=== PATIENT | female | born 1945 | race African-American/Black ===

== ENCOUNTER 2020-07-20 21:27 | Emergency (ER) | payer MEDICARE ==
[2020-07-20 22:03] LABS: Absolute Lymphocytes (CBC) 0.9 K/uL (0.7-4.9); Basophils % 0.9 % (0-1.3); Hematocrit 29.2 % (36.0-45.0); Lymphocytes % 10.3 % (15.3-44.8); MPV 7.7 fL (7.6-11.3); RBC Red Blood Cell Count 3.37 M/uL (3.86-4.86)
[2020-07-20 22:11] LABS: Protime INR 1.09
[2020-07-20 22:21] LABS: BUN Blood Urea Nitrogen 11 mg/dL (7-18); Bicarbonate 28 mmol/L (21-32); Glucose Level 86 mg/dL (74-106); NT PRO-BNP 322 pg/mL (<450); Potassium 3.1 mmol/L (3.5-5.1); Sodium Level 140 mmol/L (136-145); Troponin (Emerg Dept Use Only) 0.02 ng/mL (0.0-0.045)
[2020-07-20] MEDS ORDERED: MORPHINE 2 MG/ML SYR ONE (22:24)
[2020-07-20] MEDS ORDERED: ONDANSETRON 4 MG/2 ML VIAL ONE (22:24)
[2020-07-20] MEDS ORDERED: LABETALOL 20 MG/4ML SYRINGE IV ONE (23:50)
--- NOTE | 2020-07-21 | ER ---
Nurse's Notes [facility] Name: Krista Chakraborty Age: 74 yrs Sex: Female : 1945 Arrival Date: 07/20/2020 Time: 21:28 Bed 18 Private MD: Diagnosis: Dissection of thoracic aorta-Ascending Presentation: 07/20 21:39 Chief complaint: Patient states: Pt was sitting at the table playing dominos when had a vg1 sudden onset of Chest pain/pressure and began feeling nauseous. Pt states the pain does not radiate but stated was seeing spots. Pt also stated had a Port placed yesterday. Coronavirus screen: Client denies travel out of the [place] in the last 14 days. Ebola Screen: Patient negative for fever greater than or equal to 101.5 degrees Fahrenheit, and additional compatible Ebola Virus Disease symptoms. Initial Sepsis Screen: Does the patient meet any 2 criteria? No. Patient's initial sepsis screen is negative. Does the patient have a suspected source of infection? No. Patient's initial sepsis screen is negative. Risk Assessment: Do you want to hurt yourself or someone else? Patient reports no desire to harm self or others. Onset of symptoms was July 20, 2020. 21:39 Method Of Arrival: Wheelchair vg1 21:39 Acuity: MARGE 3 vg1 Triage Assessment: 21:42 General: Appears in no apparent distress. uncomfortable, Behavior is calm, cooperative. vg1 Pain: Complains of pain in chest. Cardiovascular: Patient's skin is warm and dry. Historical: - Allergies: 21:42 No Known Allergies; vg1 - PMHx: 21:42 Colon Cancer; Liver Cancer; Hypertension; vg1 - Immunization history:: Adult Immunizations up to date. - Social history:: Smoking status: Patient denies any tobacco usage or history of. - Family history:: not pertinent. - Hospitalizations: : No recent hospitalization is reported. Screenin:50 Abuse screen: Denies threats or abuse. Nutritional screening: No deficits noted. jb4 Tuberculosis screening: No symptoms or risk factors identified. Fall Risk None identified. Assessment: 21:50 General: Appears in no apparent distress. uncomfortable, Behavior is calm, cooperative, jb4 appropriate for age. Pain: Complains of pain in chest Pain does not radiate. Pain currently is 9 out of 10 on a pain scale. Quality of pain is described as pressure, Pain began 1 day ago. Neuro: Level of Consciousness is awake, alert, obeys commands, Oriented to person, place, time, situation. Cardiovascular: Patient's skin is warm and dry. Respiratory: Airway is patent Respiratory effort is even, unlabored, Respiratory pattern is regular, symmetrical. GI: No signs and/or symptoms were reported involving the gastrointestinal system. : No signs and/or symptoms were reported regarding the genitourinary system. EENT: No signs and/or symptoms were reported regarding the EENT system. Derm: Skin is intact, Skin is pink, warm \T\ dry. Musculoskeletal: Circulation, motion, and sensation intact. Range of motion: intact in all extremities. 22:45 Reassessment: Patient appears in no apparent distress at this time. Patient and/or jb4 family updated on plan of care and expected duration. Pain level reassessed. Patient is alert, oriented x 3, equal unlabored respirations, skin warm/dry/pink. 23:42 Reassessment: Patient appears in no apparent distress at this time. Patient and/or jb4 family updated on plan of care and expected duration. Pain level reassessed. Patient is alert, oriented x 3, equal unlabored respirations, skin warm/dry/pink. 07/21 00:30 Reassessment: Patient appears in no apparent distress at this time. Patient and/or jb4 family updated on plan of care and expected duration. Pain level reassessed. Patient is alert, oriented x 3, equal unlabored respirations, skin warm/dry/pink. 01:21 Reassessment: Patient appears in no apparent distress at this time. Patient and/or jb4 family updated on plan of care and expected duration. Pain level reassessed. Patient is alert, oriented x 3, equal unlabored respirations, skin warm/dry/pink. 02:15 Reassessment: Patient appears in no apparent distress at this time. Patient and/or jb4 family updated on plan of care and expected duration. Pain level reassessed. Patient is alert, oriented x 3, equal unlabored respirations, skin warm/dry/pink. Pt transferred to receiving facility via life flight. Vital Signs: 07/20 21:39 BP 117 / 99; Pulse 86; Resp 14; Temp 98.3; Pulse Ox 100% ; Weight 68.04 kg; Height 5 vg1 ft. 8 in. (172.72 cm); Pain 9/10; 22:50 BP 122 / 90; Pulse 73; Resp 19; Pulse Ox 100% on R/A; jb4 23:15 BP 150 / 95; Pulse 75; Resp 16; Pulse Ox 100% on R/A; jb4 07/21 00:15 BP 137 / 82; Pulse 77; Resp 16; Pulse Ox 100% on R/A; jb4 01:15 BP 129 / 82; Pulse 71; Resp 11; Pulse Ox 100% on R/A; jb4 02:15 BP 128 / 78; Pulse 74; Resp 16; Pulse Ox 100% on R/A; jb4 07/20 21:39 Body Mass Index 22.81 (68.04 kg, 172.72 cm) vg1 ED Course: 07/20 21:28 Patient arrived in ED. cf2 21:31 Huan Cole MD is Attending Physician. rn 21:42 Triage completed. vg1 21:42 Arm band placed on. vg1 21:50 Patient has correct armband on for positive identification. Bed in low position. Call [facility] light in reach. Side rails up X 1. plant puller on. Pulse ox on. NIBP on. 21:50 Initial lab(s) drawn, by me, sent to lab. EKG done, by ED staff, reviewed by Huan Cole MD. Inserted saline lock: 18 gauge in right forearm, using aseptic technique. Blood collected. Patient maintains SpO2 saturation greater than 95% on room air. 21:57 Armin Diez, RN is Primary Nurse. jb4 22:11 XRAY Chest (1 view) In Process Unspecified. EDMS 22:42 CT Chest For PE Angio In Process Unspecified. EDMS 23:29 Initiated transfer to [facility], spoke with Austin Hernandez. ar5 07/21 00:18 [facility] declined transfer due to no bed availability. ar5 00:[address] [facility], spoke with Chel Moore. ar5 00:[address] Villalobos. ar5 00:40 Per Chel Moore, we need to call back when the COVID results come back then she will ar5 give us acceptance. 01:34 Accpetance given by Chel Moore. Accepting Dr is Dr. Bryan Villalobos. Pt. going to [address] rm:25 Call report to Fax MOT, Rene, Covid to [phone]. 01:45 Called [facility] spoke with Teodora they will arrive in 15 minutes. ar5 Fax Facesheet and MOT to [phone]. 02:15 No provider procedures requiring assistance completed. Patient transferred, IV remains jb4 in place. Administered Medications: 07/20 22:03 Drug: Zofran (Ondansetron) 4 mg Route: IVP; Site: right forearm; jb4 22:30 Follow up: Response: No adverse reaction jb4 22:05 Drug: morphine 2 mg Route: IVP; Site: right forearm; jb4 22:30 Follow up: Response: No adverse reaction; Marked relief of symptoms jb4 23:29 Drug: Labetalol 5 mg Route: IVP; Infused Over: 2 mins; Site: right forearm; jb4 0616 00:00 Follow up: Response: No adverse reaction; Blood pressure is lowered jb4 00:21 Drug: Labetalol 2.5 mg Route: IVP; Site: right forearm; jb4 01:00 Follow up: Response: No adverse reaction; Blood pressure is lowered jb4 Outcome: 00:00 ER care complete, transfer ordered by . rn 02:15 Transferred by helicopter to [facility], Transfer form completed. jb4 X-rays sent w/ patient. 02:15 Condition: stable 02:15 Discharge instructions given to patient, family, Instructed on the need for transfer, Demonstrated understanding of instructions. 02:28 Patient left the ED. jb4 Signatures: Dispatcher [employer] EDMS Huan Cole MD MD rn Bryson, James RN RN jb4 Yessi Peguero ar5 Brandon Tuttle cf2 Margaret Coronado, RN RN vg1 Corrections: (The following items were deleted from the chart) 02:06 00:18 Initiated transfer to [facility], spoke with Austin Hernandez ar5 ar5 02:16 01:45 Called [facility] spoke with Teodora they will arrive in 15 ar5 minutes ar5
--- NOTE | 2020-07-21 | EDPHYS ---
Physician Documentation [facility] Name: Krista Chakraborty Age: 74 yrs Sex: Female : 1945 Arrival Date: 07/20/2020 Time: 21:28 Bed 18 Private MD: ED Physician Huan Cole HPI: 07/20 21:39 This 74 yrs old Black Female presents to ER via Unassigned with complaints of Chest rn Pain. 21:39 The patient or guardian reports chest pain that is located primarily in the substernal rn area. Onset: 45 minute(s) ago. The pain does not radiate. Associated signs and symptoms: Pertinent negatives: abdominal pain, cough, diaphoresis, dizziness, headache, lightheadedness, nausea, near syncope, palpitations, shortness of breath, syncope, vomiting. The chest pain is described as a heaviness, a pressure. Duration: The patient or guardian reports a single episode, that is still ongoing. Modifying factors: The symptoms are alleviated by nothing. Severity of pain: At its worst the pain was moderate in the emergency department the pain is unchanged. The patient has not experienced similar symptoms in the past. The patient has been recently seen by a physician:. Just had port placed yesterday for starting chemo for colon cancer, reports sitting at table and began to have substernal chest pain, pressure, non-radiating, no fever/cough/abd pain. + chronic edema of lower ext. No hx of DVT/PE. . Historical: - Allergies: 21:42 No Known Allergies; vg1 - PMHx: 21:42 Colon Cancer; Liver Cancer; Hypertension; vg1 - Immunization history:: Adult Immunizations up to date. - Social history:: Smoking status: Patient denies any tobacco usage or history of. - Family history:: not pertinent. - Hospitalizations: : No recent hospitalization is reported. ROS: 21:39 Constitutional: Negative for fever, chills Eyes: Negative for injury, pain, redness, rn and discharge, Neck: Negative for injury, pain, and swelling, Cardiovascular: + for chest pain and edema Respiratory: Negative for shortness of breath, cough, wheezing Abdomen/GI: Negative for abdominal pain, nausea, vomiting, diarrhea, and constipation, Back: Negative for injury and pain, MS/Extremity: Negative for injury and deformity, Skin: Negative for injury, rash, and discoloration, Neuro: Negative for headache, weakness, numbness, tingling, and seizure. Exam: 21:39 Constitutional: This is a well developed, well nourished patient who is awake, alert, rn holding center chest. Head/Face: Normocephalic, atraumatic. Eyes: Pupils equal round and reactive to light, extra-ocular motions intact. Cardiovascular: Regular rate and rhythm. No pulse deficits. Respiratory: No increased work of breathing, no retractions or nasal flaring. Abdomen/GI: soft, non-tender, + biliary drain/tube in place, draining Skin: Warm, dry MS/ Extremity: Pulses equal, no cyanosis. Neuro: Awake and alert, GCS 15, oriented to person, place, time, and situation. Vital Signs: 21:39 BP 117 / 99; Pulse 86; Resp 14; Temp 98.3; Pulse Ox 100% ; Weight 68.04 kg; Height 5 vg1 ft. 8 in. (172.72 cm); Pain 9/10; 22:50 BP 122 / 90; Pulse 73; Resp 19; Pulse Ox 100% on R/A; jb4 23:15 BP 150 / 95; Pulse 75; Resp 16; Pulse Ox 100% on R/A; jb4 07/21 00:15 BP 137 / 82; Pulse 77; Resp 16; Pulse Ox 100% on R/A; jb4 01:15 BP 129 / 82; Pulse 71; Resp 11; Pulse Ox 100% on R/A; jb4 02:15 BP 128 / 78; Pulse 74; Resp 16; Pulse Ox 100% on R/A; jb4 07/20 21:39 Body Mass Index 22.81 (68.04 kg, 172.72 cm) vg1 MDM: 07/20 21:31 Patient medically screened. rn 21:55 ED course: Daughter states + known blood clots in lungs. . rn 23:23 ED course: Radiology called, reports acute aortic dissection, ascending to end of rn aortic arch. BP slightly elevated 5mg labetalol ordered, will transfer patient for CVICU.. 23:24 ED course: Pain improved. rn 23:58 Differential diagnosis: acute myocardial infarction, acute pericarditis, coronary rn artery disease pulmonary embolus, stable angina, thoracic aortic disection, unstable angina. Data reviewed: vital signs, nurses notes, lab test result(s), EKG, radiologic studies, CT scan, plain films, and as a result, I will admit patient. Counseling: I had a detailed discussion with the patient and/or guardian regarding: the historical points, exam findings, and any diagnostic results supporting the discharge/admit diagnosis, lab results, radiology results, the need for further work-up and treatment in the hospital, the need to transfer to another facility, for higher level of care, [facility] does not immediately have the required specialist. Response to treatment: the patient's symptoms have mildly improved after treatment, and as a result, I will admit patient. 07/21 00:35 ED course: Pt declined by [facility], accepted by Dr. Villalobos at [facility]. [facility] transfer center states need to wait on COVID results before transfer. 07/20 21:39 Order name: Basic Metabolic Panel; Complete Time: 22:23 07/20 21:39 Order name: CBC with Diff rn 07/20 21:39 Order name: NT PRO-BNP; Complete Time: 22:23 07/20 21:39 Order name: PT-INR; Complete Time: 22:23 07/20 21:39 Order name: Troponin (emerg Dept Use Only); Complete Time: 22:23 07/20 21:39 Order name: XRAY Chest (1 view) rn 07/20 21:39 Order name: EKG; Complete Time: 21:40 07/20 21:39 Order name: CT Chest For PE Angio rn 07/21 01:31 Order name: SARS-COV-2 RT PCR EDCO 07/20 21:39 Order name: Cardiac monitoring; Complete Time: 21:57 rn 07/20 21:39 Order name: EKG - Nurse/Tech; Complete Time: 21:51 rn 07/20 21:39 Order name: IV Saline Lock; Complete Time: 21:57 rn 07/20 21:39 Order name: Labs collected and sent; Complete Time: 21:58 rn 07/20 21:39 Order name: O2 Per Protocol; Complete Time: 21:58 rn 07/20 21:39 Order name: O2 Sat Monitoring; Complete Time: 21:58 rn Administered Medications: 07/20 22:03 Drug: Zofran (Ondansetron) 4 mg Route: IVP; Site: right forearm; jb4 22:30 Follow up: Response: No adverse reaction jb4 22:05 Drug: morphine 2 mg Route: IVP; Site: right forearm; jb4 22:30 Follow up: Response: No adverse reaction; Marked relief of symptoms jb4 23:29 Drug: Labetalol 5 mg Route: IVP; Infused Over: 2 mins; Site: right forearm; jb4 07/21 00:00 Follow up: Response: No adverse reaction; Blood pressure is lowered jb4 00:21 Drug: Labetalol 2.5 mg Route: IVP; Site: right forearm; jb4 01:00 Follow up: Response: No adverse reaction; Blood pressure is lowered jb4 Disposition: 07/20 23:58 Critical Care:. rn Disposition: 07/21/20 00:00 Transfer ordered to [facility]. Diagnosis is Dissection of thoracic aorta - Ascending. - Reason for transfer: Higher level of care. - Accepting physician is Dr. Villalobos. - Condition is Fair. - Problem is new. - Symptoms have improved. Critical care time excluding procedures: 23:58 Critical care time: Bedside Care: 25 minutes, Family Intervention: 5 minutes. Total rn time: 30 minutes Signatures: Dispatcher [employer] EDMS Huan Cole MD MD rn Bryson, James RN TAMELA jb4 Margaret Coronado RN RN vg1 Corrections: (The following items were deleted from the chart) 07/21 00:36 00:24 CORONAVIRUS+MR.LAB.BRZ ordered. [facility] EDCO 00:37 00:00 07/21/2020 00:[address] [facility]. Diagnosis is rn Dissection of thoracic aorta - Ascending. Reason for transfer: Higher level of care. Accepting physician is . Condition is Fair. Problem is new. Symptoms have improved. rn 02:28 00:37 07/21/2020 00:00 Transfer ordered to [facility]. jb4 Diagnosis is Dissection of thoracic aorta - Ascending. Reason for transfer: Higher level of care. Accepting physician is Dr. Villalobos. Condition is Fair. Problem is new. Symptoms have improved. rn
[2020-07-21 02:36] VITALS: TEMP 98.3; O2SAT 100
[2020-07-21 02:45] VITALS: BP 128/78
--- NOTE | 2020-07-21 06:43 | RAD REPORT ---
EXAM DESCRIPTION: [facility]ash[place] Single View07/20/2020 9:56 pm CLINICAL HISTORY: Chest pain COMPARISON: none FINDINGS: The proximal thoracic aorta and aortic arch are prominent. CT scan on the same date demon strates a dissection. Lungs appear clear. Heart is mildly enlarged. Central venous catheter has its tip in the superior vena cava
--- NOTE | 2020-07-21 07:36 | EKG ---
Test Date: 2020-07-20 Test Time: 21:45:39 Behavioral Health Associate: MARY MEASUREMENT RESULTS: Intervals: Rate: 77 MD: 176 QRSD: 78 QT: 374 QTc: 423 [place]: P: 40 MD: 176 QRS: -29 T: 24 INTERPRETIVE STATEMENTS: Normal sinus rhythm Low voltage QRS Borderline ECG No previous ECG available for comparison Electronically Signed On 07-21-20 07:35:46 CDT by Gianni Caceres
--- NOTE | 2020-07-21 20:18 | RAD REPORT ---
EXAM DESCRIPTION: CT - Chest For Pe Angio - 07/21/2020 1:03 am CLINICAL HISTORY: Chest pain, recent port placement, colon cancer. COMPARISON: None. TECHNIQUE: CTA of the chest was performed following intravenous administration of iodinated contrast . Axial soft tissue and bone window, and coronal and sagittal soft tissue window reconstructions were created and sent to PACS. 3D postprocessing was performed on an independent workstation, with images sent to PACS for subsequen t review. This exam was performed according to our departmental dose-optimization program, which includes autom ated exposure control, adjustment of the mA and/or kV according to patient size and/or use of iterati ve reconstruction technique. FINDINGS: Vascular: There is an aortic dissection originating near the sinotubular junction extendin g to the distal aortic arch. The ascending aorta measures up to 5.4 cm in diameter, located in the pr oximal ascending aorta. There is a suspected fenestration at the level of the superior ascending thor acic aorta (axial image 45). The left common carotid and subclavian arteries arise from the true lume n. The right brachiocephalic artery is not well visualized, likely due to streak artifact from adjace nt contrast in the SVC and right brachiocephalic vein, but also is favored to arise from the true lum en (coronal image 38). The pulmonary arteries are well-opacified to the lobar level. No CT evidence of acute pulmonary throm boembolism. A tiny potential eccentric filling defect in the left lower lobe pulmonary artery and bra nches is either artifact or a chronic pulmonary embolus. Lungs and pleura: No pulmonary consolidation. Trace right-sided pleural effusion. No pneumothorax. Mediastinum and neck: No mediastinal lymphadenopathy by CT size criteria. Heterogeneous and enlarged thyroid gland, poorly visualized thyroid gland due to streak artifact. Cardiac: No cardiomegaly or pericardial effusion. Right IJ infusion port catheter terminates near the superior cavoatrial junction. Abdomen: Multifocal hepatic irregular calcifications, likely corresponding with treated metastases. S tents in the liver, possibly portal venous versus biliary. Trace portal venous gas versus pneumobilia , likely related to the stents. Tiny focus of gas in the left upper abdomen, medial to the spleen (ax ial series 601 image 107). Musculoskeletal: No concerning osseous abnormality. IMPRESSION: 1. Type A aortic dissection originating near the sinotubular junction extending to the distal aortic arch. The true lumen is well perfused. 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 2. No CT evidence of acute pulmonary thromboembolism. Tiny eccentric apparent filling defect in the left lower lobe pulmonary artery and branches is either artifact or a chronic pulmonary embolus. 3. No pulmonary consolidation. Trace right-sided pleural effusion. 4. Suspected treated hepatic metastases. Hepatic stents, likely in the portal venous system. Trace portal venous gas. 5. Tiny focus of gas in the left upper quadrant of uncertain etiology. Correlate for recent instrum entation. 6. Heterogeneous and enlarged thyroid gland. Consider correlation with thyroid ultrasound, if clini jamie appropriate (Reference: J Am Pa Radiol. 2015 Mar;12(2): 143-50). THIS REPORT CONTAINS FINDINGS THAT MAY BE CRITICAL TO PATIENT CARE: The findings were verbally discus sed via telephone conference with Dr. Huan Cole on 07/20/2020 11:19 PM CDT. The results were acknowl edged and understood. Electronically signed by: Erlinda Jaramillo MD 07/20/2020 11:27 PM CDT Due to temporary technical issues with the PACS/Fluency reporting system, reports are being signed by the in house radiologists without review as a courtesy to insure prompt reporting. The interpreting radiologist is fully responsible for the content of the report.
== END 2020-07-21 02:28 | disposition short-term general hospital (02) ==
LOC: ER 21:27
DX: I71.01 Dissection of thoracic aorta (principal); I10 Essential (primary) hypertension; Z20.822 Contact with and (suspected) exposure to COVID-19; Z85.05 Personal history of malignant neoplasm of liver; Z85.038 Personal history of other malignant neoplasm of large intestine
CPT/HCPCS: 93005; 85025; 80048; 36415; 85610; 84484; 83880; 71275; 71045; 96375; 96374; 99285; U0003; Q9967; J2270; J2405

== ENCOUNTER 2020-09-22 11:26 | Inpatient (IN) | payer MEDICARE ==
--- OUTSIDE RECORDS SUMMARY | 2020-09-22 11:34 | XMS REPORT | Clinical Summary ---
:1945 Author Organization [facility] MD [facility] Address [address] [place] [address] Care Team Providers Name Role Phone Trina Stevens MD Unavailable Kervin Diaz MD Unavailable Douglas MCKINNEY MD, [facility] Primary Care Provider [phone] Babak Riddle MDiv Unavailable Unavailable Allergies No Known Active Allergies Medications Medication Sig Dispensed Refills Start Date End Date Status amLODIPine (NORVASC) 5 Take 1 tablet (5 30 tablet 0 05/15/2020 Active mg tabletIndications: mg) by mouth Anemia in malignant daily. neoplastic disease furosemide (Lasix) 20 mg Take 1 tablet 30 tablet 3 06/02/2020 Active tabletIndications: (20 mg) by mouth Secondary malignant daily as needed neoplasm of liver, for edema. Adenocarcinoma of transverse colon ondansetron (Zofran) 8 Take 1 tablet (8 30 tablet 5 06/08/2020 Active mg tabletIndications: mg) by mouth Adenocarcinoma of every 8 (eight) transverse colon hours as needed for nausea or vomiting. (First Choice) Additional Information Patient not taking. Reason: Per patient request, Reported on 07/16/2020 prochlorperazine (Compazine) 10 Take 1 tablet (10 mg) 60 tablet 5 06/08/2020 Active mg tabletIndications: by mouth every 6 (six) Adenocarcinoma of transverse hours as needed for colon nausea or vomiting. (Second Choice) Additional Information Patient not taking. Reason: Per patient request, Reported on 07/16/2020 traMADol (ULTRAM) 50 mg Take 1 tablet (50 5 tablet 0 07/17/19 21 Active tabletIndications: mg) by mouth Postoperative pain every 6 (six) hours as needed for moderate pain. lidocaine-prilocaine Apply to 30 g 0 07/16/2020 Active (EMLA) 2.5-2.5% Port-A-Cath area creamIndications: 30 to 45 minutes Encounter for prior to port adjustment and access as management of vascular directed (topical access device anesthetic use to the anterior chest only). ferrous sulfate 325 mg Take 325 mg by 0 Active (65 mg elemental iron mouth. per tablet) tablet tvcthqak-xwqbvzz-lekm Apply 0.5 g 0 09/02/2020 Active oxide (REMEDY CALAZIME topically to PROTECT) affected area(s) 3.5%-0.2%-16.5% pste twice daily. topical pasteIndications: Adenocarcinoma of rectum, Carcinoma of colon, stage IV, Obstruction of biliary tree, Adenocarcinoma of transverse colon, Hematochezia, Cachexia, Disorder of fluid AND/OR electrolyte, Anemia in malignant neoplastic disease, Takotsubo cardiomyopathy, H/O: Deep vein thrombosis, History of repair of aneurysm of abdominal aorta using endovascular stent graft, Paroxysmal atrial fibrillation, Infection caused by Klebsiella, Lower gastrointestinal hemorrhage, Hypocalcemia, Hyperbilirubinemia, Inferior vena cava filter in situ, Moderate protein-calorie malnutrition, Secondary malignant neoplasm of liver, Abnormal liver function, Hypokalemia, Weakness, Nausea and vomiting, Rectal cancer, 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 rectum, Carcinoma of colon, stage IV, Obstruction of biliary tree, Adenocarcinoma of transverse colon, Hematochezia, Cachexia, Disorder of fluid AND/OR electrolyte, Anemia in malignant neoplastic disease, Takotsubo cardiomyopathy, H/O: Deep vein thrombosis, History of repair of aneurysm of abdominal aorta using endovascular stent graft, Paroxysmal atrial fibrillation, Infection caused by Klebsiella, Lower gastrointestinal hemorrhage, Hypocalcemia, Hyperbilirubinemia, Inferior vena cava filter in situ, Moderate protein-calorie malnutrition, Secondary malignant neoplasm of liver, Abnormal liver function, Hypokalemia, Weakness, Nausea and vomiting, Rectal cancer, 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 (St op Taking at Discharge) pantoprazole (PROTONIX) Take 40 mg by 0 /24 Discontinued 40 mg EC tablet mouth daily as (Reorder) needed. ferrous sulfate 325 mg Take 1 tablet 15 tablet 0 05/17/2020 (65 mg elemental iron (325 mg) by mouth per tablet) 3 (three) times a tabletIndications: week Sunday, Anemia in malignant Sunday and neoplastic disease Sunday for 30 days. levoFLOXacin (LEVAQUIN) Take 1 tablet 2 tablet 0 05/14/2020 0 05/16 500 mg (500 mg) by mouth tabletIndications: daily for 2 Anemia in malignant doses. neoplastic disease senna (SENOKOT) 8.6 mg Take 2 tablets by 30 tablet 0 1 06/13 tabletIndications: mouth daily Anemia in malignant needed for neoplastic disease constipation for up to 30 days. Additional Information Patient not taking. Reason: Other, Reported on 06/02/2020 dronabinol (MARINOL) Take 1 capsule 60 2 05/21/2020 Discontinued 2.5 mg (2.5 mg) by capsule (Stop Ta micaela capsuleIndications: mouth twice at Discharge) Adenocarcinoma of daily. transverse colon clarithromycin 0 03/10/2020 05/24/2020 Dis continued (BIAXIN) 500 mg tablet (Error) cholestyramine DISSOLVE & TAKE 0 04/07/2020 05/25/19 21 Discontinued (QUESTRAN) 4 g packet 1 POWDER PACKET BY MOUTH ONCE DAILY amoxicillin (AMOXIL) 0 03/10/2020 05/25/19 21 Discontinued 500 mg capsule (Erro r) mirtazapine (REMERON) Take 1 tablet 30 tablet 0 05/29/202005/2020 Discontinued 15 mg (15 mg) by mouth (Th erapy tabletIndications: at bedtime. completed) Other insomnia pantoprazole Take 1 tablet 30 tablet 0 05/29/2020 06/15/2020 D iscontinued (PROTONIX) 40 mg EC (40 mg) by mouth tabletIndications: daily with Obstruction of biliary breakfast. tree levoFLOXacin Take 1 tablet 3 tablet 0 05/30/2020 06/02/2020 D iscontinued (LEVAQUIN) 750 mg (750 mg) by (Therapy tabletIndications: mouth daily for completed) Obstruction of biliary 3 days. tree metroNIDAZOLE (FlagyL) Take 1 tablet 9 tablet 0 05/30/2020 Discontinued 500 mg (500 mg) by (Therapy tabletIndications: mouth 3 (three) completed) Obstruction of biliary times a day for tree 3 days. clindamycin (CLEOCIN Apply topically 60 mL 5 07/06/2020 Discontinued T) 1% to affected (Stop Ta micaela lotionIndications: area(s) 2 (two) at Discharge) Secondary malignant times a day as neoplasm of liver, needed (rash). Adenocarcinoma of transverse colon loperamide 2 tabs by mouth 100 5 07/06/2020 09/02/2020 D iscontinued (Anti-DiarrheaL, at 1st loose capsule (Stop Taking loperamide,) 2 mg stool, then 1 at Discharge) capsuleIndications: tab every 2hrs Secondary malignant until diarrhea neoplasm of liver, free for 12hrs. Adenocarcinoma of June take 2 tabs transverse colon every 4hrs at night. doxycycline Take 1 tablet 60 tablet 5 07/06/2020 09/02/2020 Di scontinued (VIBRAMYCIN) 100 mg (100 mg) by (Stop Taking tabletIndications: mouth twice at Discharge) Secondary malignant daily. neoplasm of liver, Adenocarcinoma of transverse colon sodium chloride (NS) Flush port with 10 1 07/02/2020 Discontinued 0.9% flush syringe 10 1 syringe (10 Syringe (Stop Taking mLIndications: Rectal ml) following at Discharge) cancer, Secondary 5-FU pump malignant neoplasm of disconnect liver apixaban (Eliquis) 5 Take 1 tablet (5 180 0 07/16/2020 0 09/02/2020 Discontinued mg tabletIndications: mg) by mouth tablet (Stop Taking Rectal cancer, Acute every 12 at Discharge) embolism and (twelve) hours thrombosis of for 90 days. unspecified deep veins of unspecified proximal lower extremity, Anemia due to blood loss, Acute embolism and thrombosis of unspecified deep veins of left proximal lower extremity, not otherwise specified ampicillin (OMNIPEN) Infuse 12,000 mg 0 09/02/2020 0 09/03/2020 IV prescription (HOME (12 g) USE)Indications: intravenously Adenocarcinoma of infuse over 24 rectum, Carcinoma of hours for 1 colon, stage IV, dose. Give Obstruction of biliary ampicillin 12g tree, Adenocarcinoma IV over pump of transverse colon, over 24 hours, Hematochezia, then stop Cachexia, Disorder of fluid AND/OR electrolyte, Anemia in malignant neoplastic disease, Takotsubo cardiomyopathy, H/O: Deep vein thrombosis, History of repair of aneurysm of abdominal aorta using endovascular stent graft, Paroxysmal atrial fibrillation, Infection caused by Klebsiella, Lower gastrointestinal hemorrhage, Hypocalcemia, Hyperbilirubinemia, Inferior vena cava filter in situ, Moderate protein-calorie malnutrition, Secondary malignant neoplasm of liver, Abnormal liver function, Hypokalemia, Weakness, Nausea and vomiting, Rectal cancer, 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 Managed at [facility] Anemia in malignant neoplastic disease 08/14/2020 Disorder of fluid AND/OR electrolyte 08/14/2020 Pulmonary embolism 08/14/2020 Coronary arteriosclerosis 08/14/2020 Cachexia 08/14/2020 Lower gastrointestinal hemorrhage 08/11/2020 Paroxysmal atrial fibrillation 08/11/2020 Dissection of aorta 08/11/2020 Overview: Complicated course with acute AAA, s/p e ndovascular graft, with takatsubo CMP, hemothorax s/p chest tube, required intra-aortic balloon pump. Managed at [facility] History of repair of aneurysm of abdominal aorta using endovascular stent 08/11/2020 graft Overview: Complicated course with acute AAA, s/p e ndovascular graft, with takatsubo CMP, hemothorax s/p chest tube, required intra-aortic balloon pump. Managed at [facility] Anticoagulant adverse reaction 08/11/2020 Hypocalcemia 07/16/2020 Inferior vena cava filter in situ 06/02/2020 Last Assessment & Plan: Placed 05/11/2020 when she presented with new diagnosis untreated bleeding rectal cancer and new DVT. Will defer retrieval of IVC filter until it is clear she can tolerate anticoagulation. We will likely place referral at next follow-up. Moderate protein-calorie malnutrition 05/24/2020 Malignant neoplasm of transverse colon 05/13/2020 Cancer Staging: Clinical: Stage LISETTE (cTX , cNX, cM1a) - Signed by Dean Cole II, MD on 05/21/2020 Secondary malignant neoplasm of liver 05/12/2020 Obstruction of biliary tree 05/12/2020 Acute iliac DVT 05/11/2020 Last Assessment & Plan: Right internal iliac nonoccluding vein d eep vein thrombosis seen on 05/10/2020 CT abdomen pelvis obtained for staging. Left distal popliteal vein partially occlusive thrombus diagnosed 05/11/2020 by venous Doppler. She could not be started on a nticoagulation due to anemia with ongoing rectal bleeding. She remains without bleeding. We will s tart Eliquis 5 mg p.o. twice daily. 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 Rectal cancer 05/10/2020 Cancer Staging: Clinical: Stage Unknown (cTX, cNX, cM1) - Signed by Dean Cole II, MD on 05/13/2020 Nausea and vomiting 05/10/2020 Weakness 05/10/2020 Hypokalemia 05/10/2020 Abnormal liver function 05/10/2020 Hyperbilirubinemia Resolved Problems Problem Noted Date Resolved Date Infection caused by Klebsiella 08/11/2020 1 Tight chest 05/11/2020 05/12/2020 Encounters Date Type Specialty Care Team Description 09/22/19 Case Management Deepthi Mccrary, RN 09/17/19 Case Management Deepthi Mccrary, RN 09/16/19 Office Visit Colorectal Medicine Dean Cole Secondar y malignant neoplasm of liver (Primary Dx); Deepthi Steel II, Anemia due to b lood loss; Adenocarcinoma of transverse colon 09/16/19 Travel 21 09/11/19 Telephone Colorectal Medicine Sienna Mckoy, RN 09/07/[address] Medicine [address], Adenocar cinoma of 21 Mayra Chelsea, transverse col on (Primary PA Dx) 08/26/19 Orders Only Colorectal Medicine Dean Cole II, MD 08/26/19 Orders Only Gastrointestinal [facility] 21 Medical Oncology [facility] 08/25/19 Orders Only Colorectal Medicine Deepthi Romero MD 08/25/19 Orders Only Gastrointestinal Krysten Cortés, 21 Medical Oncology [facility] 08/20/[address] Orders [address] Medicine [address], Adenocar cinoma of 21 Mayra Tran, transverse col on (Primary PA Dx) 08/18/19 Anesthesia Event Radiology Deepthi Shrestha III, MD Opusunju, Sylvia, IT ACCOUNT MANAGER 08/18/19 Travel 21 08/12/19 [facility] GI/Phase 1 Javed Dennison, Adenocarcinoma of rectum (Primary Dx); 21 - Encounter DO Carcinoma of colon, stage IV; 09/03/19 Drew, Obstruction of biliary tree; 21 MD Jen Adenocarcinoma of transverse colon; Kelsey, Hematochezia; Melanie, Cachexia; Disorder of fluid AND/OR electrolyte; Percy, Anemia in malig nant neoplastic disease; MD Latricia Takotsubo cardiomyopathy; [place] H/O: Deep vein thrombosis; Huy ohara, History of repa ir of aneurysm of abdominal aorta using endovascular stent graft; Paroxysmal atrial fibrillation; Darrian, Infection cause d by Klebsiella; Parth, DO Lower gastroint estinal hemorrhage; Hypocalcemia; Hyperbilirubine topher; Inferior vena c catie filter in situ; Moderate protei n-calorie malnutrition; Secondary malig nant neoplasm of liver; Abnormal liver function; Hypokalemia; Weakness; Nausea and vomi ting; Rectal cancer; Chronic iron de ficiency anemia secondary to blood loss 08/12/19 Orders Only Colorectal Medicine Dean Cole II, MD 08/12/19 Travel 21 08/12/19 Documentation Colorectal Medicine Dean Cole II, MD 08/12/19 Telephone Colorectal Medicine Mallory Brizuela V 21 RN 07/22/19 Documentation Colorectal Medicine Deepthi Sherman PA 07/22/19 Orders Only Gastrointestinal [facility] 21 Medical Oncology [facility] 07/21/19 [facility] Radiology Dean Cole Acute embolism and thrombosis of right iliac vein (Primary Dx); 21 Encounter Damián MCKINNEY, Malignant neopl asm of transverse colon, not otherwise specified; Inferior vena cava filter in situ Frances Colvin PA 07/21/19 Orders Only Radiology Deepthi Colvin PA 07/20/19 Ancillary Radiology 21 Procedure 07/20/19 Ancillary Radiology 21 Procedure 07/20/19 Anesthesia Event Ambulatory Surgery Daina Rivas 21 B., Claudia Bermudez, PSYCHOLOGICAL SCIENCE PROFESSOR 07/20/19 Ancillary Pisimisis, 21 Procedure MD Drew 07/20/19 Surgery Ambulatory Surgery Pisimisis, PORT-A-CA TH PLACEMENT 21 MD Derw 07/20/19 [facility] Ambulatory Surgery Pisimisis, Adenocarc inoma of transverse colon; 21 Encounter MD Drew Rectal cancer 07/20/19 Travel 21 07/17/19 Anesthesia Event Anesthesiology Eduar, DANIE Green 07/17/19 Clinical Support Infectious Diseases Melody Long, Maria Elena pected COVID-19 (Primary Dx); 21 PA Adenocarcinoma of transverse colon; Gary, Rectal cancer Farhat Omer MA 07/17/19 Hospital Lab Melody Long, Pre op labs; 21 Encounter PA Rectal cancer; Acute embolism and thrombosis of unspecified deep veins of unspecified proximal lower extremity; Anemia due to b lood loss; Acute embolism and thrombosis of unspecified deep veins of left proximal lower extremity, not otherwise specified; Secondary malig nant neoplasm of liver 07/17/19 [address] Adenocar cinoma of transverse colon (Primary Dx); 21 Encounter Procedures Mayra Tran, Rectal cancer; PA Secondary malignant neoplasm of liver; Williamson, Encounter for a djustment and management of vascular access device; Kengreer S, Moderate protei n-calorie malnutrition; RN Inferior vena cava filter in situ; Zhou, Postoperative p DANIE Webber 07/17/19 Office Visit Hematology Alayna, Inferior vena c catie filter in situ (Primary Dx); 21 Marcia Hurst MD Rectal cancer; Acute embolism and thrombosis of unspecified deep veins of unspecified proximal lower extremity; Anemia due to b lood loss; Acute embolism and thrombosis of unspecified deep veins of left proximal lower extremity, not otherwise specified; Chronic iron de ficiency anemia secondary to blood loss 07/17/19 POEM Appointments Anesthesiology Melody Long, Pre-sonia cassidy evaluation 21 PA 07/17/[address] Medicine [address], Secondar y malignant 21 Mayra Tran, neoplasm of li irvin (Primary PA Dx) 07/17/19 Travel 21 07/15/19 [facility], 21 Encounter MD Douglas Serrano Van Karlyle II, MD 07/10/[address] Rectal c ancer; 21 Encounter Procedures Mayra Tran, Encounter for adjustment and management of vascular access device PA Lolis Yeung, RN 07/10/19 Infusion Infusion Services Dean Cole Secondary malignant neoplasm of liver; 21 Damián MCKINNEY, Adenocarcinoma of transverse colon Lisandro Pena, RN 07/10/19 Telephone Gastrointestinal Dean Cole 21 Medical Oncology Damián MCKINNEY MD 07/10/19 Travel 21 07/10/19 Telephone Gastrointestinal Deepthi Mccrary Medical Oncology Misty Goyal RN 07/09/19 Prep for Surgery Vascular Access and Melody Long Ade nocarcinoma of transverse colon (Primary Dx); 21 Procedures PA Rectal cancer 07/09/19 Prep for Surgery Vascular Access and Melody Long Ade nocarcinoma of transverse colon (Primary Dx); 21 Procedures PA Rectal cancer 07/09/19 Orders Only Vascular Access and Melody Long, Pre op labs (Primary Dx); 21 Procedures PA Pre-surgery yossi luation 07/09/19 Telephone Vascular Access and Viji Murray, port co nsult 21 rv service technician 07/09/[address], Rectal c ancer (Primary Dx); 21 Mayra Tran, Secondary hue gnant neoplasm of liver; PA Adenocarcinoma of transverse colon 07/09/19 Orders Only Gastrointestinal Diao, Sugar, Chronic iro n deficiency anemia secondary to blood loss (Primary Dx); 21 Medical Oncology [facility] Rectal canc er 07/08/19 Infusion Infusion Services Dean Cole Adenocarci noma of transverse colon (Primary Dx); 21 Damián MCKINNEY, Secondary malig nant neoplasm of liver; Chronic iron de ficiency anemia secondary to blood loss 07/08/19 Documentation Lul Riddle MDiv 07/08/19 Travel 21 07/08/19 Orders Only Colorectal Medicine Dean Cole 21 Damián MCKINNEY MD 07/07/[address], Chronic iro n deficiency 21 Medical Oncology Mayrageorge Tran, anemia sec ondary to blood PA loss (Primary D x) 07/07/[address], Adenocarcin phil of transverse colon (Primary Dx); 21 Medical Oncology Mayra Tran, Encounter for chemotherapy PA 07/07/[address], Antineoplas tic chemotherapy 21 Medical Oncology Mayra Tran, induced an emia (Primary Dx) PA 07/03/19 [facility] Vascular Access and Dean Cole 21 Encounter Procedures MD Edgar Steel II, Sandeep, TAMELA 07/03/19 Hospital Radiology Dean Cole 21 Encounter Damián MCKINNEY MD 07/03/19 Office Visit Colorectal Medicine Dean Cole Rectal c ancer (Primary Dx); 21 Damián MCKINNEY, Secondary malig nant neoplasm of liver; Adenocarcinoma of transverse colon 07/03/[address], Rectal cancer; 21 Encounter Mayra Tran, Secondary hue gnant neoplasm of liver PA 07/03/19 Telephone Gastrointestinal Hermann, 21 Medical Oncology Misty Goyal RN 07/03/19 Travel 21 07/02/19 Telephone Gastrointestinal Juanito, 21 Surgery Nelson Hilliard NP 07/01/[address], 21 Medical Oncology Mayra Tran, PA 07/01/[address], Rectal canc er (Primary Dx); 21 Medical Oncology Mayra Tran, Secondary malignant neoplasm of liver PA 07/01/19 Telephone Gastrointestinal Huy, May 26 Medical Oncology Kevin RN 06/30/19 Telephone Gastrointestinal Hermann, 21 Medical Oncology Misty Goyal RN 06/26/19 Telephone Gastrointestinal Huy, May 26 Medical Oncology Kevin RN 06/17/19 Telephone Colorectal Medicine Sienna Mckoy 21 Monserrat, RN 06/16/19 Telephone Gastrointestinal Dean Cole Medical Oncology Damián MCKINNEY MD 06/16/19 Telephone Sienna Figueroa 21 Medical Oncology TAMELA German 06/16/[address], 21 Medical Oncology DANIE Mccann 06/16/[address], 21 Medical Oncology Mayra Tran, PA 06/12/19 Infusion Infusion Services Dean Cole Adenocarci noma of transverse colon; 21 Damián MCKINNEY, Secondary malig nant neoplasm of liver Julia Schultz, RN 06/12/19 Travel 21 06/11/19 Orders Only Gastrointestinal [facility] Rectal canc er (Primary Dx) 21 Medical Oncology [facility] 06/10/19 Infusion Infusion Services Dean Cole Adenocarci noma of 21 Karheber II, transverse colo n (Primary MD Dx) Charan Last RN 06/10/19 Office Visit Colorectal Medicine Dean Colear y malignant neoplasm of liver (Primary Dx); 21 Karheber II, Adenocarcinoma of transverse colon 06/10/[address], Secondary malig nant neoplasm of liver; 21 Encounter Mayra Tran, Adenocarcinoma of transverse colon PA 06/10/19 Hospital Radiology Dean Cole 21 Encounter Damián MCKINNEY MD 06/10/19 [facility] Vascular Access and Dean Cole Adenocar cinoma of transverse colon; 21 Encounter Procedures Damián MCKINNEY, Encounter for a djustment and management of vascular access device MD Marie, Dago Blanchard RN Johnnie, Monica Coyne RN 06/10/19 Travel 21 06/10/19 Orders Only Gastrointestinal [facility] 21 Medical Oncology [facility] 06/09/19 [facility], 21 Encounter Tyler Delaney MD 06/09/[address], 21 Medical Oncology DANIE Mccann 06/05/19 Orders Only Gastrointestinal [facility] 21 Medical Oncology [facility] 06/03/19 Office Visit Colorectal Medicine Dean Cole Adenocar cinoma of transverse colon (Primary Dx); 21 Damián MCKINNEY, Secondary malig blairt neoplasm of liver 06/03/19 Office Visit Hematology Alayna, Rectal cancer ( Primary Dx); 21 Marcia Hurst MD Acute embolism and thrombosis of unspecified deep veins of unspecified proximal lower extremity; Anemia due to b lood loss; Acute embolism and thrombosis of unspecified deep veins of left proximal lower extremity, not otherwise specified 06/03/19 Office Visit Gastrointestinal Juanito, Secondary m alignant 21 Surgery Nelson Hilliard, neoplasm of tj er EDGING CATCHER Joan Robbins MD 06/03/19 Hospital Lab Juanito, Secondary malig nant 21 Encounter Nelson Hilliard, neoplasm of tj er EDGING CATCHER 06/03/19 Orders Only Colorectal Medicine Dean Cole Secondar y malignant 21 Karheber II, neoplasm of tj er (Primary MD Dx) 06/03/19 Travel 21 06/02/19 Consult Colorectal Surgery Maverick, Adenocarc inoma of 21 MD Beba transverse colo n PhD 06/02/19 Anesthesia Event Radiology Palmer Siddiqui, 21 Loy Hamilton, RN 06/02/19 [facility] Radiology Jose Alejandro Garcia, Obstructive hyp erbilirubinemia; 21 Encounter MD Viki 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 Dat Yin, Plamer [place] MD Murthy, Ravi, MD 06/02/19 Travel 06/01/19 Anesthesia Event Anesthesiology Bal, 21 Viki German, TAMELA 06/01/19 POEM Appointments Anesthesiology Dean Coel No Show 21 Damián MCKINNEY MD 06/01/[address], 21 Medical Oncology DANIE Mccann 06/01/19 Telephone Gastrointestinal Juanito, 21 Surgery Nelson K, EDGING CATCHER 05/31/19 Orders Only Colorectal Medicine Dean Cole malignant neoplasm of liver (Primary Dx); 21 Damián MCKINNEY, Adenocarcinoma of transverse colon 05/27/19 Anesthesia Event Radiology Alirio Lobo, 21 Jose Luis Ng, RN 05/27/19 Surgery Endoscopy Rodger, ENDOSCOPIC RETR OGRADE 21 MD Phil CHOLANGIOPANCRE ATOGRAPHY WITH PLACEMENT OF STENT OF BILE DUCT 05/27/19 Orders Only Colorectal Surgery Beatriz Guerrero, 21 PA 05/27/19 Documentation Gastrointestinal Ethan Field, 21 Surgery Kayla Omer MA 05/26/19 Orders Only Colorectal Surgery Neelima Gregg, 21 EDGING CATCHER 05/26/19 Travel 21 05/25/19 [facility] Leukemia Kirk Lundberg, Anemia due to blood loss (Primary Dx); 21 - Encounter Rectal cancer; 05/30/19 Koom-Dadzie, Fatigue; 21 MD Ricardo Obstructive hyperbilirubinemia; Jose Alejandro Garcia, 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; MD Viki Other insomnia; Obstruction of biliary tree 05/25/19 Consult Gastrointestinal Rosendo Joan Adenocarcin phil of 21 Surgery MD Richy transverse colo n 05/25/19 Hospital Lab Dean Cole Adenocarcinoma of 21 Encounter Damián MCKINNEY, transverse colo n 05/25/19 Travel 21 05/25/[address], 21 Medical Oncology DANIE Mccann 05/25/19 Orders Only Colorectal Surgery Neelima Gregg, 21 EDGING CATCHER 05/24/19 Orders Only Colorectal Medicine Dean Cole malignant neoplasm of liver (Primary Dx); 21 Karlyle II, Adenocarcinoma of transverse colon 05/22/19 Hospital Lab Douglsa Dean Adenocarcinoma of 21 Encounter Shabbirlyle II, transverse colo n 05/22/19 Nutrition Nutrition Percy, Nausea and vomi ting; 21 MD Latricia Weight loss; Ebrus, Neoplasm of col on; Anni Zuniga, EVELIA Fatigue; 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 neoplastic disease; Elevated total bilirubin; Hypokalemia; Anemia due to b lood loss; Acute DVT of lo wer leg; Rectal cancer; Weakness; Abnormal liver function; Tight chest; Secondary malig nant neoplasm of liver; Obstruction of biliary tree 05/22/19 Office Visit Colorectal Medicine Dean Cole Adenocar cinoma of transverse colon (Primary Dx); 21 Karlyljackeline II, Secondary malmike kassandra neoplasm of liver 05/22/19 Orders Only Colorectal Surgery Neelima Gregg, 21 EDGING CATCHER 05/22/19 Travel 21 05/18/19 Orders Only Colorectal Medicine Dean Cole Adenocar cinoma of 21 Karlyle II, transverse colo n (Primary MD Dx) 05/18/19 Orders Only Infectious Diseases Juana, SARS-CoV -2 vaccination 21 MD Carmen 05/16/19 Telephone Jonas, Discharge Call 21 Katiuska Paiz RN 05/14/19 Orders Only Colorectal Medicine Dean Cole Adenocar cinoma of 21 Karlyle II, transverse colo n (Primary MD Dx) 05/13/19 Anesthesia Event Endoscopy Mikhail, MD Kam Zavala Neil, MD 05/13/19 Surgery Endoscopy Roni Guerrero ENDOSCOPIC RETR OGWILLEM Guerrier MD CHOLANGIOPANCRE ATOGRAPHY WITH PLACEMENT OF STENT OF BILE DUCT 05/13/19 Prep for Surgery Gastroenterology, Olivares, Rectal cancer (Primary Dx) 21 Hepatology & Surendra Jansen MD 05/12/19 Anesthesia Event Radiology Mirta Campbell 21 RN 05/12/19 Orders Only GastroenterologyEmilee, 21 Hepatology & MD Genesis Nutrition 05/12/19 Travel 21 05/12/19 Orders Only Hematology Alayna, Acute embolism and thrombosis of unspecified deep veins of left proximal lower extremity, not otherwise specified (Primary Dx); 21 Marcia Hurst MD Anemia due to b lood loss 05/11/19 Hospital Leukemia Chaftari, 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 neoplastic disease (Primary Dx); 21 - Encounter MD Florian Nausea and vomiting; 05/15/19 Viki Hardin Weight loss; 21 MD Chika Neoplasm of colon; Grace, Fatigue; Vania Elevated total bilirubin; MD Cindy Hypokalemia; Percy, Anemia due to b lood loss; MD Latricia Acute DVT of lo wer leg; Rectal cancer; Weakness; Abnormal liver function; Tight chest; Secondary malig nant neoplasm of liver; Obstruction of biliary tree 05/11/19 Travel 21 04/28/19 Ancillary Radiology Cancer 21 Procedure 04/23/19 Lab Requisition Philip, MD Tony Lucero, Garrison Blas MD 04/10/19 Travel 21 after 09/23/2019 Immunizations Name Administration Dates Next Due Surgical History Surgery Date Site/Laterality Comments BREAST LUMPECTOMY 02/05/1963 - Left 02/05/1964 CHOLECYSTECTOMY 02/05/1979 - 02/05/1980 MI ERCP STENT PLACEMENT 05/12/2020 - N/A Procedur e: ENDOSCOPIC RETROGRADE BILIARY/PANCREATIC DUCT 05/13/2020 CHOLANGI OPANCREATOGRAPHY WITH PLACEMENT OF KERI NT OF BILE DUCT; Surgeon: Deanna Guerrero MD; Location: MAIN E NDOSCOPY; Service: GASTROE NTEROLOGY Medical devices from this surgery are in t he Implants section. MI ERCP STENT PLACEMENT 05/26/2020 N/A Procedur e: ENDOSCOPIC RETROGRADE BILIARY/PANCREATIC DUCT CHOLANGI OPANCREATOGRAPHY WITH PLACEMENT OF KERI NT OF BILE DUCT; Surgeon: Phil Soares MD; Location: MAIN E NDOSCOPY; Service: GASTROE NTEROLOGY Medical devices from this surgery are in t he Implants section. COLONOSCOPY W/ BIOPSIES 03/08/2020 - 04/04/2020 COLONOSCOPY W/ BIOPSIES 03/08/2020 - 04/04/2020 MI INSJ TUNNELED CTR VAD 07/19/2020 Neck/Right Procedu re: PORT-A-CATH W/SUBQ PORT AGE 5 YR/> PLACEMENT ; Surgeon: Drew Walters MD; Location: [facility]; Service: RCV - VASCULAR SURGERY Medical devices from this surgery are in t he Implants section. MI CHG FLUOROGUIDE CNTRL 07/19/2020 Neck/Right Procedu re: FLUORO GUIDANCE FOR YAMILET CENTRAL VENOUS A CCESS DEVICE ACCESS,PLACE,REPLACE,REM PLACEME NT, REPLACEMENT, OR OVE REMOVAL; Surgeo n: Drew Walters MD; Location: [facility]; Service: RCV - VASCULAR SURGERY Medical devices from this surgery are in t he Implants section. MI CHG US GUIDE, 07/19/2020 Chest/Right Procedure: US G UIDANCE WITH EVAL VASCULAR ACCESS OF POTENTIAL ACC ESS SITES, REALTIME US VISU ALIZATION OF VASC NEEDLE ENTR Y; Surgeon: Drew Walters MD; Location: [facility]; Servic e: THRCV - VASCULAR SURGERY Medical devices from this surgery are in t he Implants section. 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 Personal history of chemotherapy 06/2020 Benign tumor of breast 1964 Takotsubo cardiomyopathy 08/14/2020 Family History Medical History Relation Name Comments Alzheimer's disease Mother Ovarian cancer Sister Relation Name Status Comments Daughter Alive Daughter Alive Father Mother Sister Sister Alive Sister Alive Sister Alive Son Alive Son Alive Son Alive Social History Tobacco Use Types Packs/Day Years Used Date Never Smoker Smokeless Tobacco: Never Used Alcohol Use Standard Drinks/Week Comments Never 0 (1 standard drink = 0.6 oz pure alcoho l) Alcohol Habits Answer Date Recorded How often do you have a drink containing alcohol? Never 05/10/2020 How many drinks containing alcohol do you have on a typical Not asked day when you are drinking? How often do you have six or more drinks on one occasion? No t asked Education Answer Date Recorded What is the highest level of school Associate degree: [employer] program 07/16/2020 you have completed or the highest degree you have received? Sex Assigned at Date Recorded Female 05/20/2020 4:42 PM CDT Job Start Date Occupation Industry Not on file Not on file Not on file COVID-19 Exposure Response Date Recorded In the last month, have you been in contact with No / Unsure 09/15/2020 4:12 PM CDT someone who was confirmed or suspected to have Coronavirus / COVID-19? Last Filed Vital Signs Vital Sign Reading Time Taken Comments Blood Pressure 85/49 09/15/2020 4:25 PM CDT Pulse 98 09/15/2020 4:25 PM CDT Temperature 37.4 C (99.3 F) 09/15/2020 4:25 PM CDT Respiratory Rate 18 09/15/2020 4:25 PM CDT Oxygen Saturation 99% 09/15/2020 4:25 PM CDT Inhaled Oxygen Concentration - - Weight 77.9 kg (171 lb 11.8 oz) 09/01/2020 7:25 AM CDT Height 167 cm (5' 5.75") 08/11/2020 6:12 PM CDT Body Mass Index 27.93 08/11/2020 6:12 PM CDT Plan of Treatment Date Type Specialty Care Team Description 08/24/2020 Anesthesia Event Endoscopy Theodore Lewis CRNA [address] [facility] [address] [place], [place] [address] [phone] 10/12/2020 Office Visit Gastroenterology, Phil Soares MD Hepatology & Nutrition [facility] [place], [place] [address] [phone] 10/20/2020 Office Visit Hematology AlaynaMarcia MD [facility] [place] [address] [phone] 09/12/2022 Hospital Encounter Endoscopy Phil Soares MD [address] [place], [place] [address] [phone] Health Maintenance Due Date Last Done Comments COVID-19 Vaccination Completed 04/06/2020, 03/09/2020 Implants Implanted Type Area Service Specialist Device Shelf Model / Serial Identifier Expiration / Lot Date Option Elite Filter - [id number] Implant ARGON 06/17/2022 [id number] / Implanted: Qty: 1 on 05/11/2020 at [facility] [id number] / [id number] PwJudy gallego Isp 6fr - [id number] Port Right: BARD [id number] 09/04/2021 [id number] / Implanted: Qty: 1 on 07/19/2020 by Drew Walters MD at [facility] Internal PERIPHERAL / Jugular VASCULAR [id number] Biliary Double Pigtail Stent With Introducer [id number] [email or web address] - [id number] Stent Right: MARGARITA COOK [id number] 11/20/2022 [id number] / Implanted: Qty: 1 on 05/12/2020 by Roni Guerrero MD at [facility] [employer] [id number] / [id number] Advanix Biliary Double Pigtail Stent 10f x7cm Flare Code Scientific - [id number] Stent [employer] SCI 04/14/2022 [id number] / Implanted: Qty: 1 on 05/26/2020 by Phil Soares MD at [facility] [id number] / [id number] Explanted Type Area Service Specialist Device Shelf Model / Serial / Identifier Expiration Lot Date Hc Stent Biliary Double Pigtail W Introducer [id number] - [id number] Stent Right: [employer] [id number] 12/14/2022 [id number] / Explanted: Qty: 1 on 05/12/2020 by Roni Guerrero MD at [facility] [employer] [id number] / Duct [id number] Procedures Procedure Name Priority Date/Time Associated Diagnosis Comme nts FRACTIONATED BILIRUBIN AM 09/02/2020 Resul ts for 5:12 AM CDT this procedure are in the results section. TOTAL PROTEIN AM 09/02/2020 Results for 5:12 AM CDT this procedure are in the results section. ASPARTATE AM 09/02/2020 Results for AMINOTRANSFERASE 5:12 AM CDT this proced ure are in the results section. ALANINE AM 09/02/2020 Results for AMINOTRANSFERASE 5:12 AM CDT this proced ure are in the results section. ALKALINE PHOSPHATASE AM 09/02/2020 Results for 5:12 AM CDT this procedure are in the results section. ALBUMIN LEVEL AM 09/02/2020 Results for 5:12 AM CDT this procedure are in the results section. CALCIUM LEVEL TOTAL AM 09/02/2020 Results for 5:12 AM CDT this procedure are in the results section. .GLOMERULAR FILTRATION AM 09/02/2020 Resul ts for RATE 5:12 AM CDT this procedure are in the results section. SERUM CREATININE AM 09/02/2020 Results for 5:12 AM CDT this procedure are in the results section. ELECTROLYTE PANEL AM 09/02/2020 Results fo r 5:12 AM CDT this procedure are in the results section. BLOOD UREA NITROGEN AM 09/02/2020 Results for 5:12 AM CDT this procedure are in the results section. GLUCOSE LEVEL AM 09/02/2020 Results for 5:12 AM CDT this procedure are in the results section. MANUAL DIFFERENTIAL AM 09/02/2020 Results for 5:12 AM CDT this procedure are in the results section. Results CBC AM 09/02/2020 Results for 5:12 AM CDT this procedure are in the results section. PHOSPHORUS LEVEL AM 09/02/2020 Results for 5:12 AM CDT this procedure are in the results section. COMPREHENSIVE METABOLIC AM 09/02/2020 PANEL 5:12 AM CDT MAGNESIUM LEVEL AM 09/02/2020 Results for 5:12 AM CDT this procedure are in the results section. COMPLETE BLOOD COUNT W/ AM 09/02/2020 DIFFERENTIAL 5:12 AM CDT TRANSFUSE RED BLOOD Routine 09/01/2020 CELLS 9:01 PM CDT TMP CROSSMATCH Now 09/01/2020 Results for INTERPRETATION 11:55 AM CDT this procedur e are in the results section. TMP INTERPRETATION Routine 09/01/2020 Results f or ANTIBODY SCREEN 11:55 AM CDT this procedu re NEGATIVE are in the results section. CLOT EXPIRATION DATE Routine 09/01/2020 Results for 11:55 AM CDT this procedure are in the results section. ANTIBODY SCREEN Now 09/01/2020 Results for 11:55 AM CDT this procedure are in the results section. ABORH Now 09/01/2020 Results for 11:55 AM CDT this procedure are in the results section. TYPE AND SCREEN Now 09/01/2020 11:55 AM CDT PRBC PRODUCT READY FOR Routine 09/01/2020 Resul ts for TECHNICIAN ANATOMIC PATHOLOGY 9:44 AM CDT this procedure are in the results section. PREPARE RBC Routine 09/01/2020 Results for 9:44 AM CDT this procedure are in the results section. FRACTIONATED BILIRUBIN AM 09/01/2020 Resul ts for 4:16 AM CDT this procedure are in the results section. TOTAL PROTEIN AM 09/01/2020 Results for 4:16 AM CDT this procedure are in the results section. ASPARTATE AM 09/01/2020 Results for AMINOTRANSFERASE 4:16 AM CDT this proced ure are in the results section. ALANINE AM 09/01/2020 Results for AMINOTRANSFERASE 4:16 AM CDT this proced ure are in the results section. ALKALINE PHOSPHATASE AM 09/01/2020 Results for 4:16 AM CDT this procedure are in the results section. ALBUMIN LEVEL AM 09/01/2020 Results for 4:16 AM CDT this procedure are in the results section. CALCIUM LEVEL TOTAL AM 09/01/2020 Results for 4:16 AM CDT this procedure are in the results section. .GLOMERULAR FILTRATION AM 09/01/2020 Resul ts for RATE 4:16 AM CDT this procedure are in the results section. SERUM CREATININE AM 09/01/2020 Results for 4:16 AM CDT this procedure are in the results section. ELECTROLYTE PANEL AM 09/01/2020 Results fo r 4:16 AM CDT this procedure are in the results section. BLOOD UREA NITROGEN AM 09/01/2020 Results for 4:16 AM CDT this procedure are in the results section. GLUCOSE LEVEL AM 09/01/2020 Results for 4:16 AM CDT this procedure are in the results section. MANUAL DIFFERENTIAL AM 09/01/2020 Results for 4:16 AM CDT this procedure are in the results section. Results CBC AM 09/01/2020 Results for 4:16 AM CDT this procedure are in the results section. PHOSPHORUS LEVEL AM 09/01/2020 Results for 4:16 AM CDT this procedure are in the results section. COMPREHENSIVE METABOLIC AM 09/01/2020 PANEL 4:16 AM CDT MAGNESIUM LEVEL AM 09/01/2020 Results for 4:16 AM CDT this procedure are in the results section. COMPLETE BLOOD COUNT W/ AM 09/01/2020 DIFFERENTIAL 4:16 AM CDT FRACTIONATED BILIRUBIN AM 08/31/2020 Resul ts for 4:20 AM CDT this procedure are in the results section. TOTAL PROTEIN AM 08/31/2020 Results for 4:20 AM CDT this procedure are in the results section. ASPARTATE AM 08/31/2020 Results for AMINOTRANSFERASE 4:20 AM CDT this proced ure are in the results section. ALANINE AM 08/31/2020 Results for AMINOTRANSFERASE 4:20 AM CDT this proced ure are in the results section. ALKALINE PHOSPHATASE AM 08/31/2020 Results for 4:20 AM CDT this procedure are in the results section. ALBUMIN LEVEL AM 08/31/2020 Results for 4:20 AM CDT this procedure are in the results section. CALCIUM LEVEL TOTAL AM 08/31/2020 Results for 4:20 AM CDT this procedure are in the results section. .GLOMERULAR FILTRATION AM 08/31/2020 Resul ts for RATE 4:20 AM CDT this procedure are in the results section. SERUM CREATININE AM 08/31/2020 Results for 4:20 AM CDT this procedure are in the results section. ELECTROLYTE PANEL AM 08/31/2020 Results fo r 4:20 AM CDT this procedure are in the results section. BLOOD UREA NITROGEN AM 08/31/2020 Results for 4:20 AM CDT this procedure are in the results section. GLUCOSE LEVEL AM 08/31/2020 Results for 4:20 AM CDT this procedure are in the results section. MANUAL DIFFERENTIAL AM 08/31/2020 Results for 4:20 AM CDT this procedure are in the results section. Results CBC AM 08/31/2020 Results for 4:20 AM CDT this procedure are in the results section. PHOSPHORUS LEVEL AM 08/31/2020 Results for 4:20 AM CDT this procedure are in the results section. COMPREHENSIVE METABOLIC AM 08/31/2020 PANEL 4:20 AM CDT MAGNESIUM LEVEL AM 08/31/2020 Results for 4:20 AM CDT this procedure are in the results section. COMPLETE BLOOD COUNT W/ AM 08/31/2020 DIFFERENTIAL 4:20 AM CDT FRACTIONATED BILIRUBIN AM 08/30/2020 Resul ts for 5:48 AM CDT this procedure are in the results section. TOTAL PROTEIN AM 08/30/2020 Results for 5:48 AM CDT this procedure are in the results section. ASPARTATE AM 08/30/2020 Results for AMINOTRANSFERASE 5:48 AM CDT this proced ure are in the results section. ALANINE AM 08/30/2020 Results for AMINOTRANSFERASE 5:48 AM CDT this proced ure are in the results section. ALKALINE PHOSPHATASE AM 08/30/2020 Results for 5:48 AM CDT this procedure are in the results section. ALBUMIN LEVEL AM 08/30/2020 Results for 5:48 AM CDT this procedure are in the results section. CALCIUM LEVEL TOTAL AM 08/30/2020 Results for 5:48 AM CDT this procedure are in the results section. .GLOMERULAR FILTRATION AM 08/30/2020 Resul ts for RATE 5:48 AM CDT this procedure are in the results section. SERUM CREATININE AM 08/30/2020 Results for 5:48 AM CDT this procedure are in the results section. ELECTROLYTE PANEL AM 08/30/2020 Results fo r 5:48 AM CDT this procedure are in the results section. BLOOD UREA NITROGEN AM 08/30/2020 Results for 5:48 AM CDT this procedure are in the results section. GLUCOSE LEVEL AM 08/30/2020 Results for 5:48 AM CDT this procedure are in the results section. MANUAL DIFFERENTIAL AM 08/30/2020 Results for 5:48 AM CDT this procedure are in the results section. Results CBC AM 08/30/2020 Results for 5:48 AM CDT this procedure are in the results section. PHOSPHORUS LEVEL AM 08/30/2020 Results for 5:48 AM CDT this procedure are in the results section. COMPREHENSIVE METABOLIC AM 08/30/2020 PANEL 5:48 AM CDT MAGNESIUM LEVEL AM 08/30/2020 Results for 5:48 AM CDT this procedure are in the results section. COMPLETE BLOOD COUNT W/ AM 08/30/2020 DIFFERENTIAL 5:[address] HEAD WO CONTRAST Routine 08/29/2020 Results for 4:23 PM CDT this procedure are in the results section. FRACTIONATED BILIRUBIN AM 08/29/2020 Resul ts for 5:16 AM CDT this procedure are in the results section. TOTAL PROTEIN AM 08/29/2020 Results for 5:16 AM CDT this procedure are in the results section. ASPARTATE AM 08/29/2020 Results for AMINOTRANSFERASE 5:16 AM CDT this proced ure are in the results section. ALANINE AM 08/29/2020 Results for AMINOTRANSFERASE 5:16 AM CDT this proced ure are in the results section. ALKALINE PHOSPHATASE AM 08/29/2020 Results for 5:16 AM CDT this procedure are in the results section. ALBUMIN LEVEL AM 08/29/2020 Results for 5:16 AM CDT this procedure are in the results section. CALCIUM LEVEL TOTAL AM 08/29/2020 Results for 5:16 AM CDT this procedure are in the results section. .GLOMERULAR FILTRATION AM 08/29/2020 Resul ts for RATE 5:16 AM CDT this procedure are in the results section. SERUM CREATININE AM 08/29/2020 Results for 5:16 AM CDT this procedure are in the results section. ELECTROLYTE PANEL AM 08/29/2020 Results fo r 5:16 AM CDT this procedure are in the results section. BLOOD UREA NITROGEN AM 08/29/2020 Results for 5:16 AM CDT this procedure are in the results section. GLUCOSE LEVEL AM 08/29/2020 Results for 5:16 AM CDT this procedure are in the results section. MANUAL DIFFERENTIAL AM 08/29/2020 Results for 5:16 AM CDT this procedure are in the results section. Results CBC AM 08/29/2020 Results for 5:16 AM CDT this procedure are in the results section. PHOSPHORUS LEVEL AM 08/29/2020 Results for 5:16 AM CDT this procedure are in the results section. COMPREHENSIVE METABOLIC AM 08/29/2020 PANEL 5:16 AM CDT MAGNESIUM LEVEL AM 08/29/2020 Results for 5:16 AM CDT this procedure are in the results section. COMPLETE BLOOD COUNT W/ AM 08/29/2020 DIFFERENTIAL 5:16 AM CDT HEMOGLOBIN Timed Study 08/28/2020 Results for 7:38 PM CDT this procedure are in the results section. TRANSFUSE RED BLOOD Routine 08/28/2020 CELLS 6:58 PM CDT TMP CROSSMATCH Now 08/28/2020 Results for INTERPRETATION 10:36 AM CDT this procedur e are in the results section. TMP INTERPRETATION Routine 08/28/2020 Results f or ANTIBODY SCREEN 10:36 AM CDT this procedu re NEGATIVE are in the results section. CLOT EXPIRATION DATE Routine 08/28/2020 Results for 10:36 AM CDT this procedure are in the results section. ANTIBODY SCREEN Now 08/28/2020 Results for 10:36 AM CDT this procedure are in the results section. ABORH Now 08/28/2020 Results for 10:36 AM CDT this procedure are in the results section. TYPE AND SCREEN Now 08/28/2020 10:36 AM CDT PRBC PRODUCT READY FOR Routine 08/28/2020 Resul ts for TECHNICIAN ANATOMIC PATHOLOGY 10:15 AM CDT this procedure are in the results section. PREPARE RBC Routine 08/28/2020 Results for 10:15 AM CDT this procedure are in the results section. FRACTIONATED BILIRUBIN AM 08/28/2020 Resul ts for 6:00 AM CDT this procedure are in the results section. TOTAL PROTEIN AM 08/28/2020 Results for 6:00 AM CDT this procedure are in the results section. ASPARTATE AM 08/28/2020 Results for AMINOTRANSFERASE 6:00 AM CDT this proced ure are in the results section. ALANINE AM 08/28/2020 Results for AMINOTRANSFERASE 6:00 AM CDT this proced ure are in the results section. ALKALINE PHOSPHATASE AM 08/28/2020 Results for 6:00 AM CDT this procedure are in the results section. ALBUMIN LEVEL AM 08/28/2020 Results for 6:00 AM CDT this procedure are in the results section. CALCIUM LEVEL TOTAL AM 08/28/2020 Results for 6:00 AM CDT this procedure are in the results section. .GLOMERULAR FILTRATION AM 08/28/2020 Resul ts for RATE 6:00 AM CDT this procedure are in the results section. SERUM CREATININE AM 08/28/2020 Results for 6:00 AM CDT this procedure are in the results section. ELECTROLYTE PANEL AM 08/28/2020 Results fo r 6:00 AM CDT this procedure are in the results section. BLOOD UREA NITROGEN AM 08/28/2020 Results for 6:00 AM CDT this procedure are in the results section. GLUCOSE LEVEL AM 08/28/2020 Results for 6:00 AM CDT this procedure are in the results section. MANUAL DIFFERENTIAL AM 08/28/2020 Results for 6:00 AM CDT this procedure are in the results section. Results CBC AM 08/28/2020 Results for 6:00 AM CDT this procedure are in the results section. PHOSPHORUS LEVEL AM 08/28/2020 Results for 6:00 AM CDT this procedure are in the results section. COMPREHENSIVE METABOLIC AM 08/28/2020 PANEL 6:00 AM CDT MAGNESIUM LEVEL AM 08/28/2020 Results for 6:00 AM CDT this procedure are in the results section. COMPLETE BLOOD COUNT W/ AM 08/28/2020 DIFFERENTIAL 6:00 AM CDT FRACTIONATED BILIRUBIN AM 08/27/2020 Resul ts for 4:19 AM CDT this procedure are in the results section. TOTAL PROTEIN AM 08/27/2020 Results for 4:19 AM CDT this procedure are in the results section. ASPARTATE AM 08/27/2020 Results for AMINOTRANSFERASE 4:19 AM CDT this proced ure are in the results section. ALANINE AM 08/27/2020 Results for AMINOTRANSFERASE 4:19 AM CDT this proced ure are in the results section. ALKALINE PHOSPHATASE AM 08/27/2020 Results for 4:19 AM CDT this procedure are in the results section. ALBUMIN LEVEL AM 08/27/2020 Results for 4:19 AM CDT this procedure are in the results section. CALCIUM LEVEL TOTAL AM 08/27/2020 Results for 4:19 AM CDT this procedure are in the results section. .GLOMERULAR FILTRATION AM 08/27/2020 Resul ts for RATE 4:19 AM CDT this procedure are in the results section. SERUM CREATININE AM 08/27/2020 Results for 4:19 AM CDT this procedure are in the results section. ELECTROLYTE PANEL AM 08/27/2020 Results fo r 4:19 AM CDT this procedure are in the results section. BLOOD UREA NITROGEN AM 08/27/2020 Results for 4:19 AM CDT this procedure are in the results section. GLUCOSE LEVEL AM 08/27/2020 Results for 4:19 AM CDT this procedure are in the results section. MANUAL DIFFERENTIAL AM 08/27/2020 Results for 4:19 AM CDT this procedure are in the results section. Results CBC AM 08/27/2020 Results for 4:19 AM CDT this procedure are in the results section. PHOSPHORUS LEVEL AM 08/27/2020 Results for 4:19 AM CDT this procedure are in the results section. COMPREHENSIVE METABOLIC AM 08/27/2020 PANEL 4:19 AM CDT MAGNESIUM LEVEL AM 08/27/2020 Results for 4:19 AM CDT this procedure are in the results section. COMPLETE BLOOD COUNT W/ AM 08/27/2020 DIFFERENTIAL 4:19 AM CDT BLOODCULTURE Now 08/26/2020 Results for 6:29 PM CDT this procedure are in the results section. BLOODCULTURE Now 08/26/2020 Results for 6:16 PM CDT this procedure are in the results section. ECHOCARDIOGRAM 2D Routine 08/26/2020 Results fo r COMPLETE 10:00 AM CDT this procedure are in the results section. CT ABDOMEN PELVIS W Routine 08/26/2020 Results for CONTRAST 8:24 AM CDT this procedure are in the results section. FRACTIONATED BILIRUBIN AM 08/26/2020 Resul ts for 3:17 AM CDT this procedure are in the results section. TOTAL PROTEIN AM 08/26/2020 Results for 3:17 AM CDT this procedure are in the results section. ASPARTATE AM 08/26/2020 Results for AMINOTRANSFERASE 3:17 AM CDT this proced ure are in the results section. ALANINE AM 08/26/2020 Results for AMINOTRANSFERASE 3:17 AM CDT this proced ure are in the results section. ALKALINE PHOSPHATASE AM 08/26/2020 Results for 3:17 AM CDT this procedure are in the results section. ALBUMIN LEVEL AM 08/26/2020 Results for 3:17 AM CDT this procedure are in the results section. CALCIUM LEVEL TOTAL AM 08/26/2020 Results for 3:17 AM CDT this procedure are in the results section. .GLOMERULAR FILTRATION AM 08/26/2020 Resul ts for RATE 3:17 AM CDT this procedure are in the results section. SERUM CREATININE AM 08/26/2020 Results for 3:17 AM CDT this procedure are in the results section. ELECTROLYTE PANEL AM 08/26/2020 Results fo r 3:17 AM CDT this procedure are in the results section. BLOOD UREA NITROGEN AM 08/26/2020 Results for 3:17 AM CDT this procedure are in the results section. GLUCOSE LEVEL AM 08/26/2020 Results for 3:17 AM CDT this procedure are in the results section. MANUAL DIFFERENTIAL AM 08/26/2020 Results for 3:17 AM CDT this procedure are in the results section. Results CBC AM 08/26/2020 Results for 3:17 AM CDT this procedure are in the results section. CREATINE KINASE Routine 08/26/2020 Results for 3:17 AM CDT this procedure are in the results section. PHOSPHORUS LEVEL AM 08/26/2020 Results for 3:17 AM CDT this procedure are in the results section. COMPREHENSIVE METABOLIC AM 08/26/2020 PANEL 3:17 AM CDT MAGNESIUM LEVEL AM 08/26/2020 Results for 3:17 AM CDT this procedure are in the results section. COMPLETE BLOOD COUNT W/ AM 08/26/2020 DIFFERENTIAL 3:17 AM CDT CARCINOEMBRYONIC Routine 08/25/2020 Results for ANTIGEN 11:34 AM CDT this procedure are in the results section. BLOODCULTURE Now 08/25/2020 Results for 10:22 AM CDT this procedure are in the results section. FRACTIONATED BILIRUBIN AM 08/25/2020 Resul ts for 4:39 AM CDT this procedure are in the results section. TOTAL PROTEIN AM 08/25/2020 Results for 4:39 AM CDT this procedure are in the results section. ASPARTATE AM 08/25/2020 Results for AMINOTRANSFERASE 4:39 AM CDT this proced ure are in the results section. ALANINE AM 08/25/2020 Results for AMINOTRANSFERASE 4:39 AM CDT this proced ure are in the results section. ALKALINE PHOSPHATASE AM 08/25/2020 Results for 4:39 AM CDT this procedure are in the results section. ALBUMIN LEVEL AM 08/25/2020 Results for 4:39 AM CDT this procedure are in the results section. CALCIUM LEVEL TOTAL AM 08/25/2020 Results for 4:39 AM CDT this procedure are in the results section. .GLOMERULAR FILTRATION AM 08/25/2020 Resul ts for RATE 4:39 AM CDT this procedure are in the results section. SERUM CREATININE AM 08/25/2020 Results for 4:39 AM CDT this procedure are in the results section. ELECTROLYTE PANEL AM 08/25/2020 Results fo r 4:39 AM CDT this procedure are in the results section. BLOOD UREA NITROGEN AM 08/25/2020 Results for 4:39 AM CDT this procedure are in the results section. GLUCOSE LEVEL AM 08/25/2020 Results for 4:39 AM CDT this procedure are in the results section. MANUAL DIFFERENTIAL AM 08/25/2020 Results for 4:39 AM CDT this procedure are in the results section. Results CBC AM 08/25/2020 Results for 4:39 AM CDT this procedure are in the results section. PHOSPHORUS LEVEL AM 08/25/2020 Results for 4:39 AM CDT this procedure are in the results section. COMPREHENSIVE METABOLIC AM 08/25/2020 PANEL 4:39 AM CDT MAGNESIUM LEVEL AM 08/25/2020 Results for 4:39 AM CDT this procedure are in the results section. COMPLETE BLOOD COUNT W/ AM 08/25/2020 DIFFERENTIAL 4:39 AM CDT FRACTIONATED BILIRUBIN AM 08/24/2020 Resul ts for 4:38 AM CDT this procedure are in the results section. TOTAL PROTEIN AM 08/24/2020 Results for 4:38 AM CDT this procedure are in the results section. ASPARTATE AM 08/24/2020 Results for AMINOTRANSFERASE 4:38 AM CDT this proced ure are in the results section. ALANINE AM 08/24/2020 Results for AMINOTRANSFERASE 4:38 AM CDT this proced ure are in the results section. ALKALINE PHOSPHATASE AM 08/24/2020 Results for 4:38 AM CDT this procedure are in the results section. ALBUMIN LEVEL AM 08/24/2020 Results for 4:38 AM CDT this procedure are in the results section. CALCIUM LEVEL TOTAL AM 08/24/2020 Results for 4:38 AM CDT this procedure are in the results section. .GLOMERULAR FILTRATION AM 08/24/2020 Resul ts for RATE 4:38 AM CDT this procedure are in the results section. SERUM CREATININE AM 08/24/2020 Results for 4:38 AM CDT this procedure are in the results section. ELECTROLYTE PANEL AM 08/24/2020 Results fo r 4:38 AM CDT this procedure are in the results section. BLOOD UREA NITROGEN AM 08/24/2020 Results for 4:38 AM CDT this procedure are in the results section. GLUCOSE LEVEL AM 08/24/2020 Results for 4:38 AM CDT this procedure are in the results section. MANUAL DIFFERENTIAL AM 08/24/2020 Results for 4:38 AM CDT this procedure are in the results section. Results CBC AM 08/24/2020 Results for 4:38 AM CDT this procedure are in the results section. PHOSPHORUS LEVEL AM 08/24/2020 Results for 4:38 AM CDT this procedure are in the results section. COMPREHENSIVE METABOLIC AM 08/24/2020 PANEL 4:38 AM CDT MAGNESIUM LEVEL AM 08/24/2020 Results for 4:38 AM CDT this procedure are in the results section. COMPLETE BLOOD COUNT W/ AM 08/24/2020 DIFFERENTIAL 4:38 AM CDT BLOODCULTURE Now 08/24/2020 Results for 4:38 AM CDT this procedure are in the results section. BLOODCULTURE Now 08/23/2020 Results for 11:50 AM CDT this procedure are in the results section. FRACTIONATED BILIRUBIN AM 08/23/2020 Resul ts for 4:59 AM CDT this procedure are in the results section. TOTAL PROTEIN AM 08/23/2020 Results for 4:59 AM CDT this procedure are in the results section. ASPARTATE AM 08/23/2020 Results for AMINOTRANSFERASE 4:59 AM CDT this proced ure are in the results section. ALANINE AM 08/23/2020 Results for AMINOTRANSFERASE 4:59 AM CDT this proced ure are in the results section. ALKALINE PHOSPHATASE AM 08/23/2020 Results for 4:59 AM CDT this procedure are in the results section. ALBUMIN LEVEL AM 08/23/2020 Results for 4:59 AM CDT this procedure are in the results section. CALCIUM LEVEL TOTAL AM 08/23/2020 Results for 4:59 AM CDT this procedure are in the results section. .GLOMERULAR FILTRATION AM 08/23/2020 Resul ts for RATE 4:59 AM CDT this procedure are in the results section. SERUM CREATININE AM 08/23/2020 Results for 4:59 AM CDT this procedure are in the results section. ELECTROLYTE PANEL AM 08/23/2020 Results fo r 4:59 AM CDT this procedure are in the results section. BLOOD UREA NITROGEN AM 08/23/2020 Results for 4:59 AM CDT this procedure are in the results section. GLUCOSE LEVEL AM 08/23/2020 Results for 4:59 AM CDT this procedure are in the results section. MANUAL DIFFERENTIAL AM 08/23/2020 Results for 4:59 AM CDT this procedure are in the results section. Results CBC AM 08/23/2020 Results for 4:59 AM CDT this procedure are in the results section. PHOSPHORUS LEVEL AM 08/23/2020 Results for 4:59 AM CDT this procedure are in the results section. COMPREHENSIVE METABOLIC AM 08/23/2020 PANEL 4:59 AM CDT MAGNESIUM LEVEL AM 08/23/2020 Results for 4:59 AM CDT this procedure are in the results section. COMPLETE BLOOD COUNT W/ AM 08/23/2020 DIFFERENTIAL 4:59 AM CDT URINALYSIS MICROSCOPIC Routine 08/22/2020 Resul ts for 2:18 PM CDT this procedure are in the results section. URINALYSIS WITH Now 08/22/2020 Results for MICROSCOPIC IF 2:18 PM CDT this procedur e INDICATED are in the results section. URINE CULTURE Now 08/22/2020 Results for 2:18 PM CDT this procedure are in the results section. FRACTIONATED BILIRUBIN AM 08/22/2020 Resul ts for 4:47 AM CDT this procedure are in the results section. TOTAL PROTEIN AM 08/22/2020 Results for 4:47 AM CDT this procedure are in the results section. ASPARTATE AM 08/22/2020 Results for AMINOTRANSFERASE 4:47 AM CDT this proced ure are in the results section. ALANINE AM 08/22/2020 Results for AMINOTRANSFERASE 4:47 AM CDT this proced ure are in the results section. ALKALINE PHOSPHATASE AM 08/22/2020 Results for 4:47 AM CDT this procedure are in the results section. ALBUMIN LEVEL AM 08/22/2020 Results for 4:47 AM CDT this procedure are in the results section. CALCIUM LEVEL TOTAL AM 08/22/2020 Results for 4:47 AM CDT this procedure are in the results section. .GLOMERULAR FILTRATION AM 08/22/2020 Resul ts for RATE 4:47 AM CDT this procedure are in the results section. SERUM CREATININE AM 08/22/2020 Results for 4:47 AM CDT this procedure are in the results section. ELECTROLYTE PANEL AM 08/22/2020 Results fo r 4:47 AM CDT this procedure are in the results section. BLOOD UREA NITROGEN AM 08/22/2020 Results for 4:47 AM CDT this procedure are in the results section. GLUCOSE LEVEL AM 08/22/2020 Results for 4:47 AM CDT this procedure are in the results section. MANUAL DIFFERENTIAL AM 08/22/2020 Results for 4:47 AM CDT this procedure are in the results section. Results CBC AM 08/22/2020 Results for 4:47 AM CDT this procedure are in the results section. PHOSPHORUS LEVEL AM 08/22/2020 Results for 4:47 AM CDT this procedure are in the results section. COMPREHENSIVE METABOLIC AM 08/22/2020 PANEL 4:47 AM CDT MAGNESIUM LEVEL AM 08/22/2020 Results for 4:47 AM CDT this procedure are in the results section. COMPLETE BLOOD COUNT W/ AM 08/22/2020 DIFFERENTIAL 4:47 AM CDT POC GLUCOSE SCREEN Routine 08/22/2020 Results f or 12:32 AM CDT this procedure are in the results section. XR ABDOMEN 1 VW Routine 08/21/2020 Results for PORTABLE 11:52 AM CDT this procedure are in the results section. CALCIUM IONIZED, VENOUS STAT 08/21/2020 Resu lts for 9:59 AM CDT this procedure are in the results section. .GLOMERULAR FILTRATION STAT 08/21/2020 Resul ts for RATE 9:59 AM CDT this procedure are in the results section. SERUM CREATININE STAT 08/21/2020 Results for 9:59 AM CDT this procedure are in the results section. ELECTROLYTE PANEL STAT 08/21/2020 Results fo r 9:59 AM CDT this procedure are in the results section. BLOOD UREA NITROGEN STAT 08/21/2020 Results for 9:59 AM CDT this procedure are in the results section. GLUCOSE LEVEL STAT 08/21/2020 Results for 9:59 AM CDT this procedure are in the results section. BASIC METABOLIC PANEL, STAT 08/21/2020 CALCIUM IONIZED 9:59 AM CDT FRACTIONATED BILIRUBIN AM 08/21/2020 Resul ts for 4:49 AM CDT this procedure are in the results section. TOTAL PROTEIN AM 08/21/2020 Results for 4:49 AM CDT this procedure are in the results section. ASPARTATE AM 08/21/2020 Results for AMINOTRANSFERASE 4:49 AM CDT this proced ure are in the results section. ALANINE AM 08/21/2020 Results for AMINOTRANSFERASE 4:49 AM CDT this proced ure are in the results section. ALKALINE PHOSPHATASE AM 08/21/2020 Results for 4:49 AM CDT this procedure are in the results section. ALBUMIN LEVEL AM 08/21/2020 Results for 4:49 AM CDT this procedure are in the results section. CALCIUM LEVEL TOTAL AM 08/21/2020 Results for 4:49 AM CDT this procedure are in the results section. .GLOMERULAR FILTRATION AM 08/21/2020 Resul ts for RATE 4:49 AM CDT this procedure are in the results section. SERUM CREATININE AM 08/21/2020 Results for 4:49 AM CDT this procedure are in the results section. ELECTROLYTE PANEL AM 08/21/2020 Results fo r 4:49 AM CDT this procedure are in the results section. BLOOD UREA NITROGEN AM 08/21/2020 Results for 4:49 AM CDT this procedure are in the results section. GLUCOSE LEVEL AM 08/21/2020 Results for 4:49 AM CDT this procedure are in the results section. MANUAL DIFFERENTIAL AM 08/21/2020 Results for 4:49 AM CDT this procedure are in the results section. Results CBC AM 08/21/2020 Results for 4:49 AM CDT this procedure are in the results section. PHOSPHORUS LEVEL AM 08/21/2020 Results for 4:49 AM CDT this procedure are in the results section. COMPREHENSIVE METABOLIC AM 08/21/2020 PANEL 4:49 AM CDT MAGNESIUM LEVEL AM 08/21/2020 Results for 4:49 AM CDT this procedure are in the results section. COMPLETE BLOOD COUNT W/ AM 08/21/2020 DIFFERENTIAL 4:49 AM CDT TRANSFUSE RED BLOOD Routine 08/20/2020 CELLS 3:08 PM CDT CLOT EXPIRATION DATE Routine 08/20/2020 Results for 9:29 AM CDT this procedure are in the results section. TMP INTERPRETATION Routine 08/20/2020 Results f or ANTIBODY SCREEN 9:29 AM CDT this procedu re NEGATIVE are in the results section. ANTIBODY SCREEN Now 08/20/2020 Results for 9:29 AM CDT this procedure are in the results section. ABORH Now 08/20/2020 Results for 9:29 AM CDT this procedure are in the results section. TYPE AND SCREEN Now 08/20/2020 9:29 AM CDT PRBC PRODUCT READY FOR Routine 08/20/2020 Resul ts for TECHNICIAN ANATOMIC PATHOLOGY 6:55 AM CDT this procedure are in the results section. PREPARE RBC Routine 08/20/2020 Results for 6:55 AM CDT this procedure are in the results section. FRACTIONATED BILIRUBIN AM 08/20/2020 Resul ts for 4:51 AM CDT this procedure are in the results section. TOTAL PROTEIN AM 08/20/2020 Results for 4:51 AM CDT this procedure are in the results section. ASPARTATE AM 08/20/2020 Results for AMINOTRANSFERASE 4:51 AM CDT this proced ure are in the results section. ALANINE AM 08/20/2020 Results for AMINOTRANSFERASE 4:51 AM CDT this proced ure are in the results section. ALKALINE PHOSPHATASE AM 08/20/2020 Results for 4:51 AM CDT this procedure are in the results section. ALBUMIN LEVEL AM 08/20/2020 Results for 4:51 AM CDT this procedure are in the results section. CALCIUM LEVEL TOTAL AM 08/20/2020 Results for 4:51 AM CDT this procedure are in the results section. .GLOMERULAR FILTRATION AM 08/20/2020 Resul ts for RATE 4:51 AM CDT this procedure are in the results section. SERUM CREATININE AM 08/20/2020 Results for 4:51 AM CDT this procedure are in the results section. ELECTROLYTE PANEL AM 08/20/2020 Results fo r 4:51 AM CDT this procedure are in the results section. BLOOD UREA NITROGEN AM 08/20/2020 Results for 4:51 AM CDT this procedure are in the results section. GLUCOSE LEVEL AM 08/20/2020 Results for 4:51 AM CDT this procedure are in the results section. MANUAL DIFFERENTIAL AM 08/20/2020 Results for 4:51 AM CDT this procedure are in the results section. Results CBC AM 08/20/2020 Results for 4:51 AM CDT this procedure are in the results section. PHOSPHORUS LEVEL AM 08/20/2020 Results for 4:51 AM CDT this procedure are in the results section. COMPREHENSIVE METABOLIC AM 08/20/2020 PANEL 4:51 AM CDT MAGNESIUM LEVEL AM 08/20/2020 Results for 4:51 AM CDT this procedure are in the results section. COMPLETE BLOOD COUNT W/ AM 08/20/2020 DIFFERENTIAL 4:51 AM CDT FRACTIONATED BILIRUBIN AM 08/19/2020 Resul ts for 3:56 AM CDT this procedure are in the results section. TOTAL PROTEIN AM 08/19/2020 Results for 3:56 AM CDT this procedure are in the results section. ASPARTATE AM 08/19/2020 Results for AMINOTRANSFERASE 3:56 AM CDT this proced ure are in the results section. ALANINE AM 08/19/2020 Results for AMINOTRANSFERASE 3:56 AM CDT this proced ure are in the results section. ALKALINE PHOSPHATASE AM 08/19/2020 Results for 3:56 AM CDT this procedure are in the results section. ALBUMIN LEVEL AM 08/19/2020 Results for 3:56 AM CDT this procedure are in the results section. CALCIUM LEVEL TOTAL AM 08/19/2020 Results for 3:56 AM CDT this procedure are in the results section. .GLOMERULAR FILTRATION AM 08/19/2020 Resul ts for RATE 3:56 AM CDT this procedure are in the results section. SERUM CREATININE AM 08/19/2020 Results for 3:56 AM CDT this procedure are in the results section. ELECTROLYTE PANEL AM 08/19/2020 Results fo r 3:56 AM CDT this procedure are in the results section. BLOOD UREA NITROGEN AM 08/19/2020 Results for 3:56 AM CDT this procedure are in the results section. GLUCOSE LEVEL AM 08/19/2020 Results for 3:56 AM CDT this procedure are in the results section. MANUAL DIFFERENTIAL AM 08/19/2020 Results for 3:56 AM CDT this procedure are in the results section. Results CBC AM 08/19/2020 Results for 3:56 AM CDT this procedure are in the results section. PHOSPHORUS LEVEL AM 08/19/2020 Results for 3:56 AM CDT this procedure are in the results section. COMPREHENSIVE METABOLIC AM 08/19/2020 PANEL 3:56 AM CDT MAGNESIUM LEVEL AM 08/19/2020 Results for 3:56 AM CDT this procedure are in the results section. COMPLETE BLOOD COUNT W/ AM 08/19/2020 DIFFERENTIAL 3:56 AM CDT FRACTIONATED BILIRUBIN AM 08/18/2020 Resul ts for 3:38 AM CDT this procedure are in the results section. TOTAL PROTEIN AM 08/18/2020 Results for 3:38 AM CDT this procedure are in the results section. ASPARTATE AM 08/18/2020 Results for AMINOTRANSFERASE 3:38 AM CDT this proced ure are in the results section. ALANINE AM 08/18/2020 Results for AMINOTRANSFERASE 3:38 AM CDT this proced ure are in the results section. ALKALINE PHOSPHATASE AM 08/18/2020 Results for 3:38 AM CDT this procedure are in the results section. ALBUMIN LEVEL AM 08/18/2020 Results for 3:38 AM CDT this procedure are in the results section. CALCIUM LEVEL TOTAL AM 08/18/2020 Results for 3:38 AM CDT this procedure are in the results section. .GLOMERULAR FILTRATION AM 08/18/2020 Resul ts for RATE 3:38 AM CDT this procedure are in the results section. SERUM CREATININE AM 08/18/2020 Results for 3:38 AM CDT this procedure are in the results section. ELECTROLYTE PANEL AM 08/18/2020 Results fo r 3:38 AM CDT this procedure are in the results section. BLOOD UREA NITROGEN AM 08/18/2020 Results for 3:38 AM CDT this procedure are in the results section. GLUCOSE LEVEL AM 08/18/2020 Results for 3:38 AM CDT this procedure are in the results section. MANUAL DIFFERENTIAL AM 08/18/2020 Results for 3:38 AM CDT this procedure are in the results section. Results CBC AM 08/18/2020 Results for 3:38 AM CDT this procedure are in the results section. PHOSPHORUS LEVEL AM 08/18/2020 Results for 3:38 AM CDT this procedure are in the results section. COMPREHENSIVE METABOLIC AM 08/18/2020 PANEL 3:38 AM CDT MAGNESIUM LEVEL AM 08/18/2020 Results for 3:38 AM CDT this procedure are in the results section. COMPLETE BLOOD COUNT W/ AM 08/18/2020 DIFFERENTIAL 3:38 AM CDT IR EXCHANGE OF BILIARY Routine 08/17/2020 Carcinoma of colon , Results for DRAINAGE CATHETER 4:26 PM CDT stage IV this proce dure are in the results section. HEMOGLOBIN Now 08/17/2020 Results for 11:20 AM CDT this procedure are in the results section. ELECTROLYTE PANEL Routine 08/17/2020 Results fo r 11:20 AM CDT this procedure are in the results section. TMP CROSSMATCH Now 08/17/2020 Results for INTERPRETATION 5:35 AM CDT this procedur e are in the results section. CLOT EXPIRATION DATE Routine 08/17/2020 Results for 5:35 AM CDT this procedure are in the results section. TMP INTERPRETATION Routine 08/17/2020 Results f or ANTIBODY SCREEN 5:35 AM CDT this procedu re NEGATIVE are in the results section. ANTIBODY SCREEN Now 08/17/2020 Results for 5:35 AM CDT this procedure are in the results section. ABORH Now 08/17/2020 Results for 5:35 AM CDT this procedure are in the results section. TYPE AND SCREEN Now 08/17/2020 5:35 AM CDT FRACTIONATED BILIRUBIN AM 08/17/2020 Resul ts for 3:29 AM CDT this procedure are in the results section. TOTAL PROTEIN AM 08/17/2020 Results for 3:29 AM CDT this procedure are in the results section. ASPARTATE AM 08/17/2020 Results for AMINOTRANSFERASE 3:29 AM CDT this proced ure are in the results section. ALANINE AM 08/17/2020 Results for AMINOTRANSFERASE 3:29 AM CDT this proced ure are in the results section. ALKALINE PHOSPHATASE AM 08/17/2020 Results for 3:29 AM CDT this procedure are in the results section. ALBUMIN LEVEL AM 08/17/2020 Results for 3:29 AM CDT this procedure are in the results section. CALCIUM LEVEL TOTAL AM 08/17/2020 Results for 3:29 AM CDT this procedure are in the results section. .GLOMERULAR FILTRATION AM 08/17/2020 Resul ts for RATE 3:29 AM CDT this procedure are in the results section. SERUM CREATININE AM 08/17/2020 Results for 3:29 AM CDT this procedure are in the results section. ELECTROLYTE PANEL AM 08/17/2020 Results fo r 3:29 AM CDT this procedure are in the results section. BLOOD UREA NITROGEN AM 08/17/2020 Results for 3:29 AM CDT this procedure are in the results section. GLUCOSE LEVEL AM 08/17/2020 Results for 3:29 AM CDT this procedure are in the results section. MANUAL DIFFERENTIAL AM 08/17/2020 Results for 3:29 AM CDT this procedure are in the results section. Results CBC AM 08/17/2020 Results for 3:29 AM CDT this procedure are in the results section. PHOSPHORUS LEVEL AM 08/17/2020 Results for 3:29 AM CDT this procedure are in the results section. COMPREHENSIVE METABOLIC AM 08/17/2020 PANEL 3:29 AM CDT MAGNESIUM LEVEL AM 08/17/2020 Results for 3:29 AM CDT this procedure are in the results section. COMPLETE BLOOD COUNT W/ AM 08/17/2020 DIFFERENTIAL 3:29 AM CDT PROTHROMBIN TIME Now 08/17/2020 Results for 3:29 AM CDT this procedure are in the results section. ELECTROLYTE PANEL Routine 08/16/2020 Results fo r 5:58 PM CDT this procedure are in the results section. PROTHROMBIN TIME STAT 08/16/2020 Results for 11:13 AM CDT this procedure are in the results section. FRACTIONATED BILIRUBIN AM 08/16/2020 Resul ts for 1:46 AM CDT this procedure are in the results section. TOTAL PROTEIN AM 08/16/2020 Results for 1:46 AM CDT this procedure are in the results section. ASPARTATE AM 08/16/2020 Results for AMINOTRANSFERASE 1:46 AM CDT this proced ure are in the results section. ALANINE AM 08/16/2020 Results for AMINOTRANSFERASE 1:46 AM CDT this proced ure are in the results section. ALKALINE PHOSPHATASE AM 08/16/2020 Results for 1:46 AM CDT this procedure are in the results section. ALBUMIN LEVEL AM 08/16/2020 Results for 1:46 AM CDT this procedure are in the results section. CALCIUM LEVEL TOTAL AM 08/16/2020 Results for 1:46 AM CDT this procedure are in the results section. .GLOMERULAR FILTRATION AM 08/16/2020 Resul ts for RATE 1:46 AM CDT this procedure are in the results section. SERUM CREATININE AM 08/16/2020 Results for 1:46 AM CDT this procedure are in the results section. ELECTROLYTE PANEL AM 08/16/2020 Results fo r 1:46 AM CDT this procedure are in the results section. BLOOD UREA NITROGEN AM 08/16/2020 Results for 1:46 AM CDT this procedure are in the results section. GLUCOSE LEVEL AM 08/16/2020 Results for 1:46 AM CDT this procedure are in the results section. MANUAL DIFFERENTIAL AM 08/16/2020 Results for 1:46 AM CDT this procedure are in the results section. Results CBC AM 08/16/2020 Results for 1:46 AM CDT this procedure are in the results section. PHOSPHORUS LEVEL AM 08/16/2020 Results for 1:46 AM CDT this procedure are in the results section. COMPREHENSIVE METABOLIC AM 08/16/2020 PANEL 1:46 AM CDT MAGNESIUM LEVEL AM 08/16/2020 Results for 1:46 AM CDT this procedure are in the results section. COMPLETE BLOOD COUNT W/ AM 08/16/2020 DIFFERENTIAL 1:46 AM CDT OSMOLALITY URINE Now 08/15/2020 Results for 8:40 AM CDT this procedure are in the results section. FRACTIONATED BILIRUBIN AM 08/15/2020 Resul ts for 3:12 AM CDT this procedure are in the results section. TOTAL PROTEIN AM 08/15/2020 Results for 3:12 AM CDT this procedure are in the results section. ASPARTATE AM 08/15/2020 Results for AMINOTRANSFERASE 3:12 AM CDT this proced ure are in the results section. ALANINE AM 08/15/2020 Results for AMINOTRANSFERASE 3:12 AM CDT this proced ure are in the results section. ALKALINE PHOSPHATASE AM 08/15/2020 Results for 3:12 AM CDT this procedure are in the results section. ALBUMIN LEVEL AM 08/15/2020 Results for 3:12 AM CDT this procedure are in the results section. CALCIUM LEVEL TOTAL AM 08/15/2020 Results for 3:12 AM CDT this procedure are in the results section. .GLOMERULAR FILTRATION AM 08/15/2020 Resul ts for RATE 3:12 AM CDT this procedure are in the results section. SERUM CREATININE AM 08/15/2020 Results for 3:12 AM CDT this procedure are in the results section. ELECTROLYTE PANEL AM 08/15/2020 Results fo r 3:12 AM CDT this procedure are in the results section. BLOOD UREA NITROGEN AM 08/15/2020 Results for 3:12 AM CDT this procedure are in the results section. GLUCOSE LEVEL AM 08/15/2020 Results for 3:12 AM CDT this procedure are in the results section. MANUAL DIFFERENTIAL AM 08/15/2020 Results for 3:12 AM CDT this procedure are in the results section. Results CBC AM 08/15/2020 Results for 3:12 AM CDT this procedure are in the results section. PHOSPHORUS LEVEL AM 08/15/2020 Results for 3:12 AM CDT this procedure are in the results section. COMPREHENSIVE METABOLIC AM 08/15/2020 PANEL 3:12 AM CDT MAGNESIUM LEVEL AM 08/15/2020 Results for 3:12 AM CDT this procedure are in the results section. COMPLETE BLOOD COUNT W/ AM 08/15/2020 DIFFERENTIAL 3:12 AM CDT FRACTIONATED BILIRUBIN AM 08/14/2020 Resul ts for 3:05 AM CDT this procedure are in the results section. TOTAL PROTEIN AM 08/14/2020 Results for 3:05 AM CDT this procedure are in the results section. ASPARTATE AM 08/14/2020 Results for AMINOTRANSFERASE 3:05 AM CDT this proced ure are in the results section. ALANINE AM 08/14/2020 Results for AMINOTRANSFERASE 3:05 AM CDT this proced ure are in the results section. ALKALINE PHOSPHATASE AM 08/14/2020 Results for 3:05 AM CDT this procedure are in the results section. ALBUMIN LEVEL AM 08/14/2020 Results for 3:05 AM CDT this procedure are in the results section. CALCIUM LEVEL TOTAL AM 08/14/2020 Results for 3:05 AM CDT this procedure are in the results section. .GLOMERULAR FILTRATION AM 08/14/2020 Resul ts for RATE 3:05 AM CDT this procedure are in the results section. SERUM CREATININE AM 08/14/2020 Results for 3:05 AM CDT this procedure are in the results section. ELECTROLYTE PANEL AM 08/14/2020 Results fo r 3:05 AM CDT this procedure are in the results section. BLOOD UREA NITROGEN AM 08/14/2020 Results for 3:05 AM CDT this procedure are in the results section. GLUCOSE LEVEL AM 08/14/2020 Results for 3:05 AM CDT this procedure are in the results section. MANUAL DIFFERENTIAL AM 08/14/2020 Results for 3:05 AM CDT this procedure are in the results section. Results CBC AM 08/14/2020 Results for 3:05 AM CDT this procedure are in the results section. PHOSPHORUS LEVEL AM 08/14/2020 Results for 3:05 AM CDT this procedure are in the results section. COMPREHENSIVE METABOLIC AM 08/14/2020 PANEL 3:05 AM CDT MAGNESIUM LEVEL AM 08/14/2020 Results for 3:05 AM CDT this procedure are in the results section. COMPLETE BLOOD COUNT W/ AM 08/14/2020 DIFFERENTIAL 3:05 AM CDT SODIUM URINE Now 08/14/2020 Results for 3:05 AM CDT this procedure are in the results section. SODIUM URINE Now 08/13/2020 Results for 4:16 PM CDT this procedure are in the results section. FRACTIONATED BILIRUBIN AM 08/13/2020 Resul ts for 3:13 AM CDT this procedure are in the results section. TOTAL PROTEIN AM 08/13/2020 Results for 3:13 AM CDT this procedure are in the results section. ASPARTATE AM 08/13/2020 Results for AMINOTRANSFERASE 3:13 AM CDT this proced ure are in the results section. ALANINE AM 08/13/2020 Results for AMINOTRANSFERASE 3:13 AM CDT this proced ure are in the results section. ALKALINE PHOSPHATASE AM 08/13/2020 Results for 3:13 AM CDT this procedure are in the results section. ALBUMIN LEVEL AM 08/13/2020 Results for 3:13 AM CDT this procedure are in the results section. CALCIUM LEVEL TOTAL AM 08/13/2020 Results for 3:13 AM CDT this procedure are in the results section. .GLOMERULAR FILTRATION AM 08/13/2020 Resul ts for RATE 3:13 AM CDT this procedure are in the results section. SERUM CREATININE AM 08/13/2020 Results for 3:13 AM CDT this procedure are in the results section. ELECTROLYTE PANEL AM 08/13/2020 Results fo r 3:13 AM CDT this procedure are in the results section. BLOOD UREA NITROGEN AM 08/13/2020 Results for 3:13 AM CDT this procedure are in the results section. GLUCOSE LEVEL AM 08/13/2020 Results for 3:13 AM CDT this procedure are in the results section. MANUAL DIFFERENTIAL AM 08/13/2020 Results for 3:13 AM CDT this procedure are in the results section. Results CBC AM 08/13/2020 Results for 3:13 AM CDT this procedure are in the results section. PHOSPHORUS LEVEL AM 08/13/2020 Results for 3:13 AM CDT this procedure are in the results section. COMPREHENSIVE METABOLIC AM 08/13/2020 PANEL 3:13 AM CDT MAGNESIUM LEVEL AM 08/13/2020 Results for 3:13 AM CDT this procedure are in the results section. COMPLETE BLOOD COUNT W/ AM 08/13/2020 DIFFERENTIAL 3:[address] ABDOMEN PELVIS W Routine 08/12/2020 Results for CONTRAST 10:04 PM CDT this procedure are in the results section. CALCIUM IONIZED, VENOUS Timed Study 08/12/2020 Resu lts for 9:17 AM CDT this procedure are in the results section. .GLOMERULAR FILTRATION Timed Study 08/12/2020 Resul ts for RATE 9:17 AM CDT this procedure are in the results section. SERUM CREATININE Timed Study 08/12/2020 Results for 9:17 AM CDT this procedure are in the results section. ELECTROLYTE PANEL Timed Study 08/12/2020 Results fo r 9:17 AM CDT this procedure are in the results section. BLOOD UREA NITROGEN Timed Study 08/12/2020 Results for 9:17 AM CDT this procedure are in the results section. GLUCOSE LEVEL Timed Study 08/12/2020 Results for 9:17 AM CDT this procedure are in the results section. HEMATOCRIT STAT 08/12/2020 Results for 9:17 AM CDT this procedure are in the results section. HEMOGLOBIN STAT 08/12/2020 Results for 9:17 AM CDT this procedure are in the results section. OSMOLALITY Timed Study 08/12/2020 Results for 9:17 AM CDT this procedure are in the results section. BASIC METABOLIC PANEL, Timed Study 08/12/2020 CALCIUM IONIZED 9:17 AM CDT FRACTIONATED BILIRUBIN AM 08/12/2020 Resul ts for 12:58 AM CDT this procedure are in the results section. TOTAL PROTEIN AM 08/12/2020 Results for 12:58 AM CDT this procedure are in the results section. ASPARTATE AM 08/12/2020 Results for AMINOTRANSFERASE 12:58 AM CDT this proced ure are in the results section. ALANINE AM 08/12/2020 Results for AMINOTRANSFERASE 12:58 AM CDT this proced ure are in the results section. ALKALINE PHOSPHATASE AM 08/12/2020 Results for 12:58 AM CDT this procedure are in the results section. ALBUMIN LEVEL AM 08/12/2020 Results for 12:58 AM CDT this procedure are in the results section. CALCIUM LEVEL TOTAL AM 08/12/2020 Results for 12:58 AM CDT this procedure are in the results section. .GLOMERULAR FILTRATION AM 08/12/2020 Resul ts for RATE 12:58 AM CDT this procedure are in the results section. SERUM CREATININE AM 08/12/2020 Results for 12:58 AM CDT this procedure are in the results section. ELECTROLYTE PANEL AM 08/12/2020 Results fo r 12:58 AM CDT this procedure are in the results section. BLOOD UREA NITROGEN AM 08/12/2020 Results for 12:58 AM CDT this procedure are in the results section. GLUCOSE LEVEL AM 08/12/2020 Results for 12:58 AM CDT this procedure are in the results section. MANUAL DIFFERENTIAL AM 08/12/2020 Results for 12:58 AM CDT this procedure are in the results section. Results CBC AM 08/12/2020 Results for 12:58 AM CDT this procedure are in the results section. FRACTIONATED BILIRUBIN Routine 08/12/2020 Resul ts for 12:58 AM CDT this procedure are in the results section. TOTAL PROTEIN Routine 08/12/2020 Results for 12:58 AM CDT this procedure are in the results section. ASPARTATE Routine 08/12/2020 Results for AMINOTRANSFERASE 12:58 AM CDT this proced ure are in the results section. ALANINE Routine 08/12/2020 Results for AMINOTRANSFERASE 12:58 AM CDT this proced ure are in the results section. ALKALINE PHOSPHATASE Routine 08/12/2020 Results for 12:58 AM CDT this procedure are in the results section. ALBUMIN LEVEL Routine 08/12/2020 Results for 12:58 AM CDT this procedure are in the results section. CALCIUM LEVEL TOTAL Routine 08/12/2020 Results for 12:58 AM CDT this procedure are in the results section. .GLOMERULAR FILTRATION Routine 08/12/2020 Resul ts for RATE 12:58 AM CDT this procedure are in the results section. SERUM CREATININE Routine 08/12/2020 Results for 12:58 AM CDT this procedure are in the results section. ELECTROLYTE PANEL Routine 08/12/2020 Results fo r 12:58 AM CDT this procedure are in the results section. BLOOD UREA NITROGEN Routine 08/12/2020 Results for 12:58 AM CDT this procedure are in the results section. GLUCOSE LEVEL Routine 08/12/2020 Results for 12:58 AM CDT this procedure are in the results section. PROTHROMBIN TIME Routine 08/12/2020 Results for 12:58 AM CDT this procedure are in the results section. COMPREHENSIVE METABOLIC Routine 08/12/2020 PANEL 12:58 AM CDT COMPLETE BLOOD COUNT W/ Routine 08/12/2020 Resu lts for INDICES 12:58 AM CDT this procedure are in the results section. COMPREHENSIVE METABOLIC AM 08/12/2020 PANEL 12:58 AM CDT MAGNESIUM LEVEL AM 08/12/2020 Results for 12:58 AM CDT this procedure are in the results section. COMPLETE BLOOD COUNT W/ AM 08/12/2020 DIFFERENTIAL 12:58 AM CDT BLOODCULTURE Now 08/12/2020 Results for 12:58 AM CDT this procedure are in the results section. EKG, 12-LEAD (PORTABLE) Routine 08/12/2020 XR CHEST 1 VW PORTABLE Routine 08/11/2020 Resul ts for 11:00 PM CDT this procedure are in the results section. INFLUENZA A/B + Now 08/11/2020 Results for COVID-19 ASYMPTOMATIC-L 6:17 PM CDT this procedure are in the results section. TMP INTERPRETATION Routine 07/20/2020 Results f or ANTIBODY SCREEN 12:13 PM CDT this procedu re NEGATIVE are in the results section. CLOT EXPIRATION DATE Routine 07/20/2020 Results for 12:13 PM CDT this procedure are in the results section. 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 XR CHEST 1 VW POST STAT 07/19/2020 Results f or IMPLANT 9:57 AM CDT this procedure are in the results section. INTRAOPERATIVE US STAT 07/19/2020 Results fo r 8:24 AM CDT this procedure are in the results section. US GUIDANCE WITH EVAL 07/19/2020 Adenocarcinoma of OF POTENTIAL ACCESS 8:20 AM CDT transverse c olon SITES, REALTIME US Rectal cancer VISUALIZATION OF VASC NEEDLE ENTRY [facility] [place] @ 0630 FLUORO GUIDANCE FOR CENTRAL 07/19/2020 8:20 AM CDT Adenocarcinoma of transverse VENOUS ACCESS DEVICE colon PLACEMENT, REPLACEMENT, OR Rectal cancer REMOVAL [facility] [place] @ 0630 PORT-A-CATH PLACEMENT 07/19/2020 8:20 AM CDT Ad enocarcinoma of transverse colon Rectal cancer [facility] [place] @ 0630 GENERAL LABORATORY ADD ON STAT 07/16/2020 Secondary Re sults for TEST 3:25 PM CDT malignant neoplasm this of liver procedure are in the results section. HC 2019-NCOV COVID-19 Routine 07/16/2020 Suspected COVID-19 Results for 2:11 PM CDT this procedure are in the results section. FRACTIONATED BILIRUBIN Routine 07/16/2020 Resul ts for 1:59 PM CDT this procedure are in the results section. TOTAL PROTEIN Routine 07/16/2020 Results for 1:59 PM CDT this procedure are in the results section. ASPARTATE AMINOTRANSFERASE Routine 07/16/2020 R esults for 1:59 PM CDT this procedure are in the results section. ALANINE AMINOTRANSFERASE Routine 07/16/2020 Res ults for 1:59 PM CDT this procedure are in the results section. ALKALINE PHOSPHATASE Routine 07/16/2020 Results for 1:59 PM CDT this procedure are in the results section. ALBUMIN LEVEL Routine 07/16/2020 Results for 1:59 PM CDT this procedure are in the results section. CALCIUM LEVEL TOTAL Routine 07/16/2020 Results for 1:59 PM CDT this procedure are in the results section. GLUCOSE LEVEL Routine 07/16/2020 Results for 1:59 PM CDT this procedure are in the results section. MANUAL DIFFERENTIAL Routine 07/16/2020 Pre op labs Results for 1:59 PM CDT this procedure are in the results section. Results CBC Routine 07/16/2020 Pre op labs Results for 1:59 PM CDT this procedure are in the results section. .GLOMERULAR FILTRATION RATE Routine 07/16/2020 Pre op labs Results for 1:59 PM CDT this procedure are in the results section. SERUM CREATININE Routine 07/16/2020 Pre op labs Results for 1:59 PM CDT this procedure are in the results section. RETICULOCYTE COUNT AUTOMATED Routine 07/16/2020 Rec abimael cancer Results for 1:59 PM CDT Acute embolism and this thrombosis of procedure are unspecified deep in the veins of results unspecified section. proximal lower extremity Anemia due to blood loss Acute embolism and thrombosis of unspecified deep veins of left proximal lower extremity, not otherwise specified LACTATE DEHYDROGENASE Routine 07/16/2020 Rectal can cer Results for 1:59 PM CDT Acute embolism and this thrombosis of procedure are unspecified deep in the veins of results unspecified section. proximal lower extremity Anemia due to blood loss Acute embolism and thrombosis of unspecified deep veins of left proximal lower extremity, not otherwise specified VITAMIN B12 LEVEL Routine 07/16/2020 Rectal cancer Results for 1:59 PM CDT Acute embolism and this thrombosis of procedure are unspecified deep in the veins of results unspecified section. proximal lower extremity Anemia due to blood loss Acute embolism and thrombosis of unspecified deep veins of left proximal lower extremity, not otherwise specified TRANSFERRIN Routine 07/16/2020 Rectal cancer Results for 1:59 PM CDT Acute embolism and this thrombosis of procedure are unspecified deep in the veins of results unspecified section. proximal lower extremity Anemia due to blood loss Acute embolism and thrombosis of unspecified deep veins of left proximal lower extremity, not otherwise specified IRON LEVEL Routine 07/16/2020 Rectal cancer Results for 1:59 PM CDT Acute embolism and this thrombosis of procedure are unspecified deep in the veins of results unspecified section. proximal lower extremity Anemia due to blood loss Acute embolism and thrombosis of unspecified deep veins of left proximal lower extremity, not otherwise specified FOLATE, RED BLOOD CELLS Routine 07/16/2020 Rectal c ancer Results for 1:59 PM CDT Acute embolism and this thrombosis of procedure are unspecified deep in the veins of results unspecified section. proximal lower extremity Anemia due to blood loss Acute embolism and thrombosis of unspecified deep veins of left proximal lower extremity, not otherwise specified FERRITIN LVL Routine 07/16/2020 Rectal cancer Results for 1:59 PM CDT Acute embolism and this thrombosis of procedure are unspecified deep in the veins of results unspecified section. proximal lower extremity Anemia due to blood loss Acute embolism and thrombosis of unspecified deep veins of left proximal lower extremity, not otherwise specified HEMOGLOBIN A1C Routine 07/16/2020 Pre op labs Results for 1:59 PM CDT this procedure are in the results section. ELECTROLYTE PANEL Routine 07/16/2020 Pre op labs Results fo r 1:59 PM CDT this procedure are in the results section. SERUM CREATININE Routine 07/16/2020 Pre op labs 1:59 PM CDT COMPLETE BLOOD COUNT W/ Routine 07/16/2020 Pre op labs DIFFERENTIAL 1:59 PM CDT BLOOD UREA NITROGEN Routine 07/16/2020 Pre op labs Results for 1:59 PM CDT this procedure are in the results section. 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 TMP INTERPRETATION ANTIBODY Routine 07/06/2020 Results for SCREEN NEGATIVE 3:33 PM CDT this procedure are in the results section. CLOT EXPIRATION DATE Routine 07/06/2020 Results for 3:33 PM CDT this procedure are in the results section. ANTIBODY SCREEN Routine 07/06/2020 Antineoplastic Results fo r 3:33 PM CDT chemotherapy this induced anemia procedure are in the results section. ABORH Routine 07/06/2020 Antineoplastic Results for 3:33 PM CDT chemotherapy this induced anemia procedure are in the results section. TYPE AND SCREEN Routine 07/06/2020 Antineoplastic 3:33 PM CDT chemotherapy induced anemia PRBC PRODUCT READY FOR PICK Routine 07/06/2020 Results for UP 1:21 PM CDT this procedure are in the results section. PREPARE RBC Routine 07/06/2020 Chronic iron Results for 1:21 PM CDT deficiency anemia this secondary to blood procedure are loss in the results section. FRACTIONATED BILIRUBIN Routine 07/02/2020 Rectal ca ncer Results for 9:48 AM CDT Secondary this malignant neoplasm procedure are of liver in the results section. TOTAL PROTEIN Routine 07/02/2020 Rectal cancer Results for 9:48 AM CDT Secondary this malignant neoplasm procedure are of liver in the results section. ASPARTATE AMINOTRANSFERASE Routine 07/02/2020 Recta l cancer Results for 9:48 AM CDT Secondary this malignant neoplasm procedure are of liver in the results section. ALANINE AMINOTRANSFERASE Routine 07/02/2020 Rectal cancer Results for 9:48 AM CDT Secondary this malignant neoplasm procedure are of liver in the results section. ALKALINE PHOSPHATASE Routine 07/02/2020 Rectal canc er Results for 9:48 AM CDT Secondary this malignant neoplasm procedure are of liver in the results section. ALBUMIN LEVEL Routine 07/02/2020 Rectal cancer Results for 9:48 AM CDT Secondary this malignant neoplasm procedure are of liver in the results section. CALCIUM LEVEL TOTAL Routine 07/02/2020 Rectal cance r Results for 9:48 AM CDT Secondary this malignant neoplasm procedure are of liver in the results section. .GLOMERULAR FILTRATION RATE Routine 07/02/2020 Rect al cancer Results for 9:48 AM CDT Secondary this malignant neoplasm procedure are of liver in the results section. SERUM CREATININE Routine 07/02/2020 Rectal cancer Results for 9:48 AM CDT Secondary this malignant neoplasm procedure are of liver in the results section. ELECTROLYTE PANEL Routine 07/02/2020 Rectal cancer Results for 9:48 AM CDT Secondary this malignant neoplasm procedure are of liver in the results section. BLOOD UREA NITROGEN Routine 07/02/2020 Rectal cance r Results for 9:48 AM CDT Secondary this malignant neoplasm procedure are of liver in the results section. GLUCOSE LEVEL Routine 07/02/2020 Rectal cancer Results for 9:48 AM CDT Secondary this malignant neoplasm procedure are of liver in the results section. MANUAL DIFFERENTIAL Routine 07/02/2020 Rectal cance r Results for 9:48 AM CDT Secondary this malignant neoplasm procedure are of liver in the results section. Results CBC Routine 07/02/2020 Rectal cancer Results for 9:48 AM CDT Secondary this malignant neoplasm procedure are of liver in the results section. LACTATE DEHYDROGENASE Routine 07/02/2020 Rectal can cer Results for 9:48 AM CDT Secondary this malignant neoplasm procedure are of liver in the results section. PHOSPHORUS LEVEL Routine 07/02/2020 Rectal cancer Results for 9:48 AM CDT Secondary this malignant neoplasm procedure are of liver in the results section. MAGNESIUM LEVEL Routine 07/02/2020 Rectal cancer Results for 9:48 AM CDT Secondary this malignant neoplasm procedure are of liver in the results section. COMPREHENSIVE METABOLIC PANEL Routine 07/02/2020 Re ctal cancer 9:48 AM CDT Secondary malignant neoplasm of liver COMPLETE BLOOD COUNT W/ Routine 07/02/2020 Rectal c ancer DIFFERENTIAL 9:48 AM CDT Secondary malignant neoplasm of liver AP NRAS MUTATION MATERIAL Routine 06/09/2020 Secondary Results for REQUEST 6:19 PM CDT malignant neoplasm this of liver procedure are in the results section. THAO PABLO PIK3CA MATERIAL REQUEST Routine 06/09/2020 Secondary Results for 6:19 PM CDT malignant neoplasm this of liver procedure are in the results section. THAO PABLO BRAF MUTATION MATERIAL Routine 06/09/2020 Secondary Results for REQUEST 6:19 PM CDT malignant neoplasm this of liver procedure are in the results section. THAO PABLO KRAS MUTATION MATERIAL Routine 06/09/2020 Secondary Results for REQUEST 6:19 PM CDT malignant neoplasm this of liver procedure are in the results section. THAO PABLO NTRK3 FUSION ANALYSIS Routine 06/09/2020 Secondary Results for MATERIAL REQUEST 6:19 PM CDT malignant neoplasm this of liver procedure are in the results section. THAO PABLO NTRK2 FUSION ANALYSIS Routine 06/09/2020 Secondary Results for MATERIAL REQUEST 6:19 PM CDT malignant neoplasm this of liver procedure are in the results section. THAO PABLO NTRK1 FUSION ANALYSIS Routine 06/09/2020 Secondary Results for MATERIAL REQUEST 6:19 PM CDT malignant neoplasm this of liver procedure are in the results section. THAO PABLO MSI BY PCR MATERIAL Routine 06/09/2020 Secondary Re sults for REQUEST 6:19 PM CDT malignant neoplasm this of liver procedure are in the results section. AP IHC HER2/SUELLEN MATERIAL Routine 06/09/2020 Secondary REQUEST 6:19 PM CDT malignant neoplasm of liver AP IHC MSI (MLH1, MSH2, MSH6, Routine 06/09/2020 Secondary PMS2) MATERIAL REQUEST 6:19 PM CDT malignant neoplasm of liver PRBC PRODUCT READY FOR PICK Routine 06/09/2020 Results for UP 6:15 PM CDT this procedure are in the results section. PREPARE RBC Routine 06/09/2020 Secondary Results for 6:15 PM CDT malignant neoplasm this of liver procedure are in the results section. TMP CROSSMATCH INTERPRETATION Routine 06/09/2020 Results for 1:25 PM CDT this procedure are in the results section. TMP INTERPRETATION ANTIBODY Routine 06/09/2020 Results for SCREEN NEGATIVE 1:25 PM CDT this procedure are in the results section. CLOT EXPIRATION DATE Routine 06/09/2020 Results for 1:25 PM CDT this procedure are in the results section. 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 XR CHEST 2 VW Routine 06/09/2020 Results for 12:24 PM CDT this procedure are in the results section. HC REF PREALBUMIN REF LAB Routine 06/02/2020 Re sults for 11:02 AM CDT this procedure are in the results section. BLOOD UREA NITROGEN Routine 06/02/2020 Secondary Results for 11:02 AM CDT malignant neoplasm this of liver procedure are in the results section. FRACTIONATED BILIRUBIN Routine 06/02/2020 Secondary Resul ts for 11:02 AM CDT malignant neoplasm this of liver procedure are in the results section. TOTAL PROTEIN Routine 06/02/2020 Secondary Results for 11:02 AM CDT malignant neoplasm this of liver procedure are in the results section. ASPARTATE AMINOTRANSFERASE Routine 06/02/2020 Secondary R esults for 11:02 AM CDT malignant neoplasm this of liver procedure are in the results section. ALANINE AMINOTRANSFERASE Routine 06/02/2020 Secondary Res ults for 11:02 AM CDT malignant neoplasm this of liver procedure are in the results section. ALKALINE PHOSPHATASE Routine 06/02/2020 Secondary Results for 11:02 AM CDT malignant neoplasm this of liver procedure are in the results section. ALBUMIN LEVEL Routine 06/02/2020 Secondary Results for 11:02 AM CDT malignant neoplasm this of liver procedure are in the results section. CALCIUM LEVEL TOTAL Routine 06/02/2020 Secondary Results for 11:02 AM CDT malignant neoplasm this of liver procedure are in the results section. .GLOMERULAR FILTRATION RATE Routine 06/02/2020 Secondary Results for 11:02 AM CDT malignant neoplasm this of liver procedure are in the results section. SERUM CREATININE Routine 06/02/2020 Secondary Results for 11:02 AM CDT malignant neoplasm this of liver procedure are in the results section. ELECTROLYTE PANEL Routine 06/02/2020 Secondary Results fo r 11:02 AM CDT malignant neoplasm this of liver procedure are in the results section. GLUCOSE LEVEL Routine 06/02/2020 Secondary Results for 11:02 AM CDT malignant neoplasm this of liver procedure are in the results section. MANUAL DIFFERENTIAL Routine 06/02/2020 Secondary Results for 11:02 AM CDT malignant neoplasm this of liver procedure are in the results section. Results CBC Routine 06/02/2020 Secondary Results for 11:02 AM CDT malignant neoplasm this of liver procedure are in the results section. C REACTIVE PROTEIN Routine 06/02/2020 Secondary Results f or 11:02 AM CDT malignant neoplasm this of liver procedure are in the results section. 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 POC CHEM 8 Routine 06/01/2020 Results for 8:55 AM CDT this procedure are in the results section. TMP INTERPRETATION ANTIBODY STAT 06/01/2020 Results for SCREEN NEGATIVE 8:54 AM CDT this procedure are in the results section. CLOT EXPIRATION DATE STAT 06/01/2020 Results for 8:54 AM CDT this procedure are in the results section. ANTIBODY SCREEN STAT 06/01/2020 Results for 8:54 AM CDT this procedure are in the results section. ABORH STAT 06/01/2020 Results for 8:54 AM CDT this procedure are in the results section. TYPE AND SCREEN STAT 06/01/2020 8:54 AM CDT EKG, 12-LEAD (PORTABLE) Routine 05/31/2020 FRACTIONATED BILIRUBIN AM 05/29/2020 Resul ts for 6:12 AM CDT this procedure are in the results section. TOTAL PROTEIN AM 05/29/2020 Results for 6:12 AM CDT this procedure are in the results section. ASPARTATE AMINOTRANSFERASE AM 05/29/2020 R esults for 6:12 AM CDT this procedure are in the results section. ALANINE AMINOTRANSFERASE AM 05/29/2020 Res ults for 6:12 AM CDT this procedure are in the results section. ALKALINE PHOSPHATASE AM 05/29/2020 Results for 6:12 AM CDT this procedure are in the results section. ALBUMIN LEVEL AM 05/29/2020 Results for 6:12 AM CDT this procedure are in the results section. CALCIUM LEVEL TOTAL AM 05/29/2020 Results for 6:12 AM CDT this procedure are in the results section. .GLOMERULAR FILTRATION RATE AM 05/29/2020 Results for 6:12 AM CDT this procedure are in the results section. SERUM CREATININE AM 05/29/2020 Results for 6:12 AM CDT this procedure are in the results section. ELECTROLYTE PANEL AM 05/29/2020 Results fo r 6:12 AM CDT this procedure are in the results section. BLOOD UREA NITROGEN AM 05/29/2020 Results for 6:12 AM CDT this procedure are in the results section. GLUCOSE LEVEL AM 05/29/2020 Results for 6:12 AM CDT this procedure are in the results section. MANUAL DIFFERENTIAL AM 05/29/2020 Results for 6:12 AM CDT this procedure are in the results section. Results CBC AM 05/29/2020 Results for 6:12 AM CDT this procedure are in the results section. CALCIUM IONIZED, VENOUS AM 05/29/2020 Resu lts for 6:12 AM CDT this procedure are in the results section. PARTIAL THROMBOPLASTIN TIME AM 05/29/2020 Results for 6:12 AM CDT this procedure are in the results section. PROTHROMBIN TIME AM 05/29/2020 Results for 6:12 AM CDT this procedure are in the results section. PHOSPHORUS LEVEL AM 05/29/2020 Results for 6:12 AM CDT this procedure are in the results section. MAGNESIUM LEVEL AM 05/29/2020 Results for 6:12 AM CDT this procedure are in the results section. COMPREHENSIVE METABOLIC PANEL AM 05/29/2020 6:12 AM CDT COMPLETE BLOOD COUNT W/ AM 05/29/2020 DIFFERENTIAL 6:12 AM CDT MANUAL DIFFERENTIAL Routine 05/28/2020 Results for 3:08 PM CDT this procedure are in the results section. Results CBC Routine 05/28/2020 Results for 3:08 PM CDT this procedure are in the results section. COMPLETE BLOOD COUNT W/ Routine 05/28/2020 DIFFERENTIAL 3:08 PM CDT FRACTIONATED BILIRUBIN AM 05/28/2020 Resul ts for 12:36 AM CDT this procedure are in the results section. TOTAL PROTEIN AM 05/28/2020 Results for 12:36 AM CDT this procedure are in the results section. ASPARTATE AMINOTRANSFERASE AM 05/28/2020 R esults for 12:36 AM CDT this procedure are in the results section. ALANINE AMINOTRANSFERASE AM 05/28/2020 Res ults for 12:36 AM CDT this procedure are in the results section. ALKALINE PHOSPHATASE AM 05/28/2020 Results for 12:36 AM CDT this procedure are in the results section. ALBUMIN LEVEL AM 05/28/2020 Results for 12:36 AM CDT this procedure are in the results section. CALCIUM LEVEL TOTAL AM 05/28/2020 Results for 12:36 AM CDT this procedure are in the results section. .GLOMERULAR FILTRATION RATE AM 05/28/2020 Results for 12:36 AM CDT this procedure are in the results section. SERUM CREATININE AM 05/28/2020 Results for 12:36 AM CDT this procedure are in the results section. ELECTROLYTE PANEL AM 05/28/2020 Results fo r 12:36 AM CDT this procedure are in the results section. BLOOD UREA NITROGEN AM 05/28/2020 Results for 12:36 AM CDT this procedure are in the results section. GLUCOSE LEVEL AM 05/28/2020 Results for 12:36 AM CDT this procedure are in the results section. MANUAL DIFFERENTIAL AM 05/28/2020 Results for 12:36 AM CDT this procedure are in the results section. Results CBC AM 05/28/2020 Results for 12:36 AM CDT this procedure are in the results section. CALCIUM IONIZED, VENOUS AM 05/28/2020 Resu lts for 12:36 AM CDT this procedure are in the results section. PARTIAL THROMBOPLASTIN TIME AM 05/28/2020 Results for 12:36 AM CDT this procedure are in the results section. PROTHROMBIN TIME AM 05/28/2020 Results for 12:36 AM CDT this procedure are in the results section. PHOSPHORUS LEVEL AM 05/28/2020 Results for 12:36 AM CDT this procedure are in the results section. MAGNESIUM LEVEL AM 05/28/2020 Results for 12:36 AM CDT this procedure are in the results section. COMPREHENSIVE METABOLIC PANEL AM 05/28/2020 12:36 AM CDT COMPLETE BLOOD COUNT W/ AM 05/28/2020 DIFFERENTIAL 12:36 AM CDT HEMOGLOBIN Routine 05/27/2020 Results for 1:15 PM CDT this procedure are in the results section. HEMATOCRIT Routine 05/27/2020 Results for 1:15 PM CDT this procedure are in the results section. FRACTIONATED BILIRUBIN AM 05/27/2020 Resul ts for 12:44 AM CDT this procedure are in the results section. TOTAL PROTEIN AM 05/27/2020 Results for 12:44 AM CDT this procedure are in the results section. ASPARTATE AMINOTRANSFERASE AM 05/27/2020 R esults for 12:44 AM CDT this procedure are in the results section. ALANINE AMINOTRANSFERASE AM 05/27/2020 Res ults for 12:44 AM CDT this procedure are in the results section. ALKALINE PHOSPHATASE AM 05/27/2020 Results for 12:44 AM CDT this procedure are in the results section. ALBUMIN LEVEL AM 05/27/2020 Results for 12:44 AM CDT this procedure are in the results section. CALCIUM LEVEL TOTAL AM 05/27/2020 Results for 12:44 AM CDT this procedure are in the results section. .GLOMERULAR FILTRATION RATE AM 05/27/2020 Results for 12:44 AM CDT this procedure are in the results section. SERUM CREATININE AM 05/27/2020 Results for 12:44 AM CDT this procedure are in the results section. ELECTROLYTE PANEL AM 05/27/2020 Results fo r 12:44 AM CDT this procedure are in the results section. BLOOD UREA NITROGEN AM 05/27/2020 Results for 12:44 AM CDT this procedure are in the results section. GLUCOSE LEVEL AM 05/27/2020 Results for 12:44 AM CDT this procedure are in the results section. MANUAL DIFFERENTIAL AM 05/27/2020 Results for 12:44 AM CDT this procedure are in the results section. Results CBC AM 05/27/2020 Results for 12:44 AM CDT this procedure are in the results section. FREE THYROXINE Now 05/27/2020 Results for 12:44 AM CDT this procedure are in the results section. FREE T3 Now 05/27/2020 Results for 12:44 AM CDT this procedure are in the results section. THYROID STIMULATING HORMONE Now 05/27/2020 Results for 12:44 AM CDT this procedure are in the results section. CALCIUM IONIZED, VENOUS AM 05/27/2020 Resu lts for 12:44 AM CDT this procedure are in the results section. PARTIAL THROMBOPLASTIN TIME AM 05/27/2020 Results for 12:44 AM CDT this procedure are in the results section. PROTHROMBIN TIME AM 05/27/2020 Results for 12:44 AM CDT this procedure are in the results section. PHOSPHORUS LEVEL AM 05/27/2020 Results for 12:44 AM CDT this procedure are in the results section. MAGNESIUM LEVEL AM 05/27/2020 Results for 12:44 AM CDT this procedure are in the results section. COMPREHENSIVE METABOLIC PANEL AM 05/27/2020 12:44 AM CDT COMPLETE BLOOD COUNT W/ AM 05/27/2020 DIFFERENTIAL :44 AM CDT IR PLACEMENT BILIARY DRAINAGE STAT 05/26/2020 Metastasis to Results for CATHETER (EXTERNAL) 90 7:45 PM CDT liver from this adenocarcinoma procedure are in the results section. INTERVENTIONAL RADIOLOGY Now 05/26/2020 Res ults for CULTURE W/GRAM STAIN 6:48 PM CDT this procedure are in the results section. FUNGUS INTERVENTIONAL RAD Now 05/26/2020 Re sults for CULTURE W/ GRAM STAIN 6:48 PM CDT this procedure are in the results section. HC CULTURE, ANAEROB Now 05/26/2020 Results for 6:48 PM CDT this procedure are in the results section. AFB INTERVENTIONAL RADIOLOGY Now 05/26/2020 Results for W/ SMEAR 6:48 PM CDT this procedure are in the results section. ENDOSCOPY NOTE RESULTS 05/26/2020 Resul ts for 6:42 PM CDT this procedure are in the results section. ENDOSCOPIC RETROGRADE 05/26/2020 Rectal cancer CHOLANGIOPANCREATOGRAPHY WITH 1:15 PM CDT PLACEMENT OF STENT OF BILE DUCT HEMATOCRIT Routine 05/26/2020 Results for 12:08 PM CDT this procedure are in the results section. HEMOGLOBIN Routine 05/26/2020 Results for 12:08 PM CDT this procedure are in the results section. HEMATOCRIT Routine 05/26/2020 Results for 5:34 AM CDT this procedure are in the results section. HEMOGLOBIN Routine 05/26/2020 Results for 5:34 AM CDT this procedure are in the results section. FRACTIONATED BILIRUBIN AM 05/26/2020 Resul ts for 12:32 AM CDT this procedure are in the results section. TOTAL PROTEIN AM 05/26/2020 Results for 12:32 AM CDT this procedure are in the results section. ASPARTATE AMINOTRANSFERASE AM 05/26/2020 R esults for 12:32 AM CDT this procedure are in the results section. ALANINE AMINOTRANSFERASE AM 05/26/2020 Res ults for 12:32 AM CDT this procedure are in the results section. ALKALINE PHOSPHATASE AM 05/26/2020 Results for 12:32 AM CDT this procedure are in the results section. ALBUMIN LEVEL AM 05/26/2020 Results for 12:32 AM CDT this procedure are in the results section. CALCIUM LEVEL TOTAL AM 05/26/2020 Results for 12:32 AM CDT this procedure are in the results section. .GLOMERULAR FILTRATION RATE AM 05/26/2020 Results for 12:32 AM CDT this procedure are in the results section. SERUM CREATININE AM 05/26/2020 Results for 12:32 AM CDT this procedure are in the results section. ELECTROLYTE PANEL AM 05/26/2020 Results fo r 12:32 AM CDT this procedure are in the results section. BLOOD UREA NITROGEN AM 05/26/2020 Results for 12:32 AM CDT this procedure are in the results section. GLUCOSE LEVEL AM 05/26/2020 Results for 12:32 AM CDT this procedure are in the results section. MANUAL DIFFERENTIAL AM 05/26/2020 Results for 12:32 AM CDT this procedure are in the results section. Results CBC AM 05/26/2020 Results for 12:32 AM CDT this procedure are in the results section. CALCIUM IONIZED, VENOUS AM 05/26/2020 Resu lts for 12:32 AM CDT this procedure are in the results section. PARTIAL THROMBOPLASTIN TIME AM 05/26/2020 Results for 12:32 AM CDT this procedure are in the results section. PROTHROMBIN TIME AM 05/26/2020 Results for 12:32 AM CDT this procedure are in the results section. PHOSPHORUS LEVEL AM 05/26/2020 Results for 12:32 AM CDT this procedure are in the results section. MAGNESIUM LEVEL AM 05/26/2020 Results for 12:32 AM CDT this procedure are in the results section. COMPREHENSIVE METABOLIC PANEL AM 05/26/2020 12:32 AM CDT COMPLETE BLOOD COUNT W/ AM 05/26/2020 DIFFERENTIAL 12:32 AM CDT OCCULT BLOOD STOOL Now 05/25/2020 Results f or 9:08 PM CDT this procedure are in the results section. HEMOGLOBIN Now 05/25/2020 Results for 7:35 PM CDT this procedure are in the results section. HEMOGLOBIN Routine 05/25/2020 Results for 12:01 PM CDT this procedure are in the results section. FRACTIONATED BILIRUBIN AM 05/25/2020 Resul ts for 3:51 AM CDT this procedure are in the results section. TOTAL PROTEIN AM 05/25/2020 Results for 3:51 AM CDT this procedure are in the results section. ASPARTATE AMINOTRANSFERASE AM 05/25/2020 R esults for 3:51 AM CDT this procedure are in the results section. ALANINE AMINOTRANSFERASE AM 05/25/2020 Res ults for 3:51 AM CDT this procedure are in the results section. ALKALINE PHOSPHATASE AM 05/25/2020 Results for 3:51 AM CDT this procedure are in the results section. ALBUMIN LEVEL AM 05/25/2020 Results for 3:51 AM CDT this procedure are in the results section. CALCIUM LEVEL TOTAL AM 05/25/2020 Results for 3:51 AM CDT this procedure are in the results section. .GLOMERULAR FILTRATION RATE AM 05/25/2020 Results for 3:51 AM CDT this procedure are in the results section. SERUM CREATININE AM 05/25/2020 Results for 3:51 AM CDT this procedure are in the results section. ELECTROLYTE PANEL AM 05/25/2020 Results fo r 3:51 AM CDT this procedure are in the results section. BLOOD UREA NITROGEN AM 05/25/2020 Results for 3:51 AM CDT this procedure are in the results section. GLUCOSE LEVEL AM 05/25/2020 Results for 3:51 AM CDT this procedure are in the results section. MANUAL DIFFERENTIAL AM 05/25/2020 Results for 3:51 AM CDT this procedure are in the results section. Results CBC AM 05/25/2020 Results for 3:51 AM CDT this procedure are in the results section. COMPREHENSIVE METABOLIC PANEL AM 05/25/2020 3:51 AM CDT COMPLETE BLOOD COUNT W/ AM 05/25/2020 DIFFERENTIAL 3:51 AM CDT BLOODCULTURE Now 05/25/2020 Results for 3:51 AM CDT this procedure are in the results section. TRANSFUSE RED BLOOD CELLS Routine 05/25/2020 3:07 AM CDT INFLUENZA A/B + COVID-19 Now 05/24/2020 Res ults for ASYMPTOMATIC-L 8:59 PM CDT this procedure are in the results section. PRBC PRODUCT READY FOR PICK Routine 05/24/2020 Results for UP 8:46 PM CDT this procedure are in the results section. PREPARE RBC Routine 05/24/2020 Results for 8:46 PM CDT this procedure are in the results section. CT ABDOMEN PELVIS W CONTRAST Routine 05/24/2020 Results for 7:31 PM CDT this procedure are in the results section. TMP CROSSMATCH INTERPRETATION Now 05/24/2020 Results for 5:50 PM CDT this procedure are in the results section. TMP INTERPRETATION ANTIBODY Routine 05/24/2020 Results for SCREEN NEGATIVE 5:50 PM CDT this procedure are in the results section. CLOT EXPIRATION DATE Routine 05/24/2020 Results for 5:50 PM CDT this procedure are in the results section. ANTIBODY SCREEN Now 05/24/2020 Results for 5:50 PM CDT this procedure are in the results section. ABORH Now 05/24/2020 Results for 5:50 PM CDT this procedure are in the results section. TYPE AND SCREEN Now 05/24/2020 5:50 PM CDT FRACTIONATED BILIRUBIN Routine 05/24/2020 Adenocarcinoma of Results for 3:20 PM CDT transverse colon this procedure are in the results section. TOTAL PROTEIN Routine 05/24/2020 Adenocarcinoma of Results f or 3:20 PM CDT transverse colon this procedure are in the results section. ASPARTATE AMINOTRANSFERASE Routine 05/24/2020 Adenocarcinoma of Results for 3:20 PM CDT transverse colon this procedure are in the results section. ALANINE AMINOTRANSFERASE Routine 05/24/2020 Adenocarcinoma o f Results for 3:20 PM CDT transverse colon this procedure are in the results section. ALKALINE PHOSPHATASE Routine 05/24/2020 Adenocarcinoma of Re sults for 3:20 PM CDT transverse colon this procedure are in the results section. ALBUMIN LEVEL Routine 05/24/2020 Adenocarcinoma of Results f or 3:20 PM CDT transverse colon this procedure are in the results section. CALCIUM LEVEL TOTAL Routine 05/24/2020 Adenocarcinoma of Res ults for 3:20 PM CDT transverse colon this procedure are in the results section. .GLOMERULAR FILTRATION RATE Routine 05/24/2020 Adenocarcinom a of Results for 3:20 PM CDT transverse colon this procedure are in the results section. SERUM CREATININE Routine 05/24/2020 Adenocarcinoma of Result s for 3:20 PM CDT transverse colon this procedure are in the results section. ELECTROLYTE PANEL Routine 05/24/2020 Adenocarcinoma of Resul ts for 3:20 PM CDT transverse colon this procedure are in the results section. BLOOD UREA NITROGEN Routine 05/24/2020 Adenocarcinoma of Res ults for 3:20 PM CDT transverse colon this procedure are in the results section. GLUCOSE LEVEL Routine 05/24/2020 Adenocarcinoma of Results f or 3:20 PM CDT transverse colon this procedure are in the results section. MANUAL DIFFERENTIAL Routine 05/24/2020 Adenocarcinoma of Res ults for 3:20 PM CDT transverse colon this procedure are in the results section. Results CBC Routine 05/24/2020 Adenocarcinoma of Results fo r 3:20 PM CDT transverse colon this procedure are in the results section. CARCINOEMBRYONIC ANTIGEN Routine 05/24/2020 Adenocarcinoma o f Results for 3:20 PM CDT transverse colon this procedure are in the results section. LACTATE DEHYDROGENASE Routine 05/24/2020 Adenocarcinoma of R esults for 3:20 PM CDT transverse colon this procedure are in the results section. PHOSPHORUS LEVEL Routine 05/24/2020 Adenocarcinoma of Result s for 3:20 PM CDT transverse colon this procedure are in the results section. MAGNESIUM LEVEL Routine 05/24/2020 Adenocarcinoma of Results for 3:20 PM CDT transverse colon this procedure are in the results section. COMPREHENSIVE METABOLIC PANEL Routine 05/24/2020 Adenocarcin phil of 3:20 PM CDT transverse colon COMPLETE BLOOD COUNT W/ Routine 05/24/2020 Adenocarcinoma of DIFFERENTIAL 3:20 PM CDT transverse colon MANUAL DIFFERENTIAL Routine 05/21/2020 Adenocarcinoma of Res ults for 12:57 PM CDT transverse colon this procedure are in the results section. Results CBC Routine 05/21/2020 Adenocarcinoma of Results fo r 12:57 PM CDT transverse colon this procedure are in the results section. FRACTIONATED BILIRUBIN Routine 05/21/2020 Adenocarcinoma of Results for 12:57 PM CDT transverse colon this procedure are in the results section. TOTAL PROTEIN Routine 05/21/2020 Adenocarcinoma of Results f or 12:57 PM CDT transverse colon this procedure are in the results section. ASPARTATE AMINOTRANSFERASE Routine 05/21/2020 Adenocarcinoma of Results for 12:57 PM CDT transverse colon this procedure are in the results section. ALANINE AMINOTRANSFERASE Routine 05/21/2020 Adenocarcinoma o f Results for 12:57 PM CDT transverse colon this procedure are in the results section. ALKALINE PHOSPHATASE Routine 05/21/2020 Adenocarcinoma of Re sults for 12:57 PM CDT transverse colon this procedure are in the results section. ALBUMIN LEVEL Routine 05/21/2020 Adenocarcinoma of Results f or 12:57 PM CDT transverse colon this procedure are in the results section. CALCIUM LEVEL TOTAL Routine 05/21/2020 Adenocarcinoma of Res ults for 12:57 PM CDT transverse colon this procedure are in the results section. .GLOMERULAR FILTRATION RATE Routine 05/21/2020 Adenocarcinom a of Results for 12:57 PM CDT transverse colon this procedure are in the results section. SERUM CREATININE Routine 05/21/2020 Adenocarcinoma of Result s for 12:57 PM CDT transverse colon this procedure are in the results section. ELECTROLYTE PANEL Routine 05/21/2020 Adenocarcinoma of Resul ts for 12:57 PM CDT transverse colon this procedure are in the results section. BLOOD UREA NITROGEN Routine 05/21/2020 Adenocarcinoma of Res ults for 12:57 PM CDT transverse colon this procedure are in the results section. GLUCOSE LEVEL Routine 05/21/2020 Adenocarcinoma of Results f or 12:57 PM CDT transverse colon this procedure are in the results section. COMPLETE BLOOD COUNT W/ Routine 05/21/2020 Adenocarcinoma of DIFFERENTIAL 12:57 PM CDT transverse colon COMPREHENSIVE METABOLIC PANEL Routine 05/21/2020 Adenocarcin phil of 12:57 PM CDT transverse colon MANUAL DIFFERENTIAL Routine 05/14/2020 Results for 12:03 PM CDT this procedure are in the results section. Results CBC Routine 05/14/2020 Results for 12:03 PM CDT this procedure are in the results section. COMPLETE BLOOD COUNT W/ Routine 05/14/2020 DIFFERENTIAL 12:03 PM CDT MANUAL DIFFERENTIAL AM 05/14/2020 Results for 5:28 AM CDT this procedure are in the results section. Results CBC AM 05/14/2020 Results for 5:28 AM CDT this procedure are in the results section. FRACTIONATED BILIRUBIN AM 05/14/2020 Resul ts for 5:28 AM CDT this procedure are in the results section. TOTAL PROTEIN AM 05/14/2020 Results for 5:28 AM CDT this procedure are in the results section. ASPARTATE AMINOTRANSFERASE AM 05/14/2020 R esults for 5:28 AM CDT this procedure are in the results section. ALANINE AMINOTRANSFERASE AM 05/14/2020 Res ults for 5:28 AM CDT this procedure are in the results section. ALKALINE PHOSPHATASE AM 05/14/2020 Results for 5:28 AM CDT this procedure are in the results section. ALBUMIN LEVEL AM 05/14/2020 Results for 5:28 AM CDT this procedure are in the results section. CALCIUM LEVEL TOTAL AM 05/14/2020 Results for 5:28 AM CDT this procedure are in the results section. .GLOMERULAR FILTRATION RATE AM 05/14/2020 Results for 5:28 AM CDT this procedure are in the results section. SERUM CREATININE AM 05/14/2020 Results for 5:28 AM CDT this procedure are in the results section. ELECTROLYTE PANEL AM 05/14/2020 Results fo r 5:28 AM CDT this procedure are in the results section. BLOOD UREA NITROGEN AM 05/14/2020 Results for 5:28 AM CDT this procedure are in the results section. GLUCOSE LEVEL AM 05/14/2020 Results for 5:28 AM CDT this procedure are in the results section. COMPREHENSIVE METABOLIC PANEL AM 05/14/2020 5:28 AM CDT COMPLETE BLOOD COUNT W/ AM 05/14/2020 DIFFERENTIAL 5:28 AM CDT PHOSPHORUS LEVEL AM 05/14/2020 Results for 5:28 AM CDT this procedure are in the results section. MAGNESIUM LEVEL AM 05/14/2020 Results for 5:28 AM CDT this procedure are in the results section. MD NGS BLOOD CONTROL Routine 05/14/2020 Results for 5:25 AM CDT this procedure are in the results section. AP MD MSI BY PCR MATERIAL Routine 05/13/2020 Adenocarcinoma of Results for REQUEST 8:20 PM CDT transverse colon this procedure are in the results section. AP IHC MSI (MLH1, MSH2, MSH6, Routine 05/13/2020 Adenocarcin phil of PMS2) MATERIAL REQUEST 8:20 PM CDT transverse colon AP MD MSI BY PCR MATERIAL Routine 05/13/2020 Adenocarcinoma of Results for REQUEST 8:19 PM CDT transverse colon this procedure are in the results section. AP IHC MSI (MLH1, MSH2, MSH6, Routine 05/13/2020 Adenocarcin phil of PMS2) MATERIAL REQUEST 8:19 PM CDT transverse colon FRACTIONATED BILIRUBIN AM 05/13/2020 Resul ts for 6:26 AM CDT this procedure are in the results section. TOTAL PROTEIN AM 05/13/2020 Results for 6:26 AM CDT this procedure are in the results section. ASPARTATE AMINOTRANSFERASE AM 05/13/2020 R esults for 6:26 AM CDT this procedure are in the results section. ALANINE AMINOTRANSFERASE AM 05/13/2020 Res ults for 6:26 AM CDT this procedure are in the results section. ALKALINE PHOSPHATASE AM 05/13/2020 Results for 6:26 AM CDT this procedure are in the results section. ALBUMIN LEVEL AM 05/13/2020 Results for 6:26 AM CDT this procedure are in the results section. CALCIUM LEVEL TOTAL AM 05/13/2020 Results for 6:26 AM CDT this procedure are in the results section. .GLOMERULAR FILTRATION RATE AM 05/13/2020 Results for 6:26 AM CDT this procedure are in the results section. SERUM CREATININE AM 05/13/2020 Results for 6:26 AM CDT this procedure are in the results section. ELECTROLYTE PANEL AM 05/13/2020 Results fo r 6:26 AM CDT this procedure are in the results section. BLOOD UREA NITROGEN AM 05/13/2020 Results for 6:26 AM CDT this procedure are in the results section. GLUCOSE LEVEL AM 05/13/2020 Results for 6:26 AM CDT this procedure are in the results section. HEMATOCRIT Routine 05/13/2020 Results for 6:26 AM CDT this procedure are in the results section. HEMOGLOBIN Routine 05/13/2020 Results for 6:26 AM CDT this procedure are in the results section. COMPREHENSIVE METABOLIC PANEL AM 05/13/2020 6:26 AM CDT PHOSPHORUS LEVEL AM 05/13/2020 Results for 6:26 AM CDT this procedure are in the results section. MAGNESIUM LEVEL AM 05/13/2020 Results for 6:26 AM CDT this procedure are in the results section. HEMATOCRIT Routine 05/12/2020 Results for 8:25 PM CDT this procedure are in the results section. HEMOGLOBIN Routine 05/12/2020 Results for 8:25 PM CDT this procedure are in the results section. ENDOSCOPY NOTE RESULTS 05/12/2020 Resul ts for 4:59 PM CDT this procedure are in the results section. ENDOSCOPIC RETROGRADE 05/12/2020 Rectal cancer CHOLANGIOPANCREATOGRAPHY WITH 4:59 PM CDT PLACEMENT OF STENT OF BILE DUCT FL ENDOSCOPY FLUOROSCOPY Routine 05/12/2020 Res ults for 4:51 PM CDT this procedure are in the results section. MRSA SCREENING CULTURE Now 05/12/2020 Resul ts for 10:04 AM CDT this procedure are in the results section. BLOODCULTURE Now 05/12/2020 Results for 9:35 AM CDT this procedure are in the results section. GENERAL LABORATORY ADD ON Now 05/12/2020 Re sults for TEST 8:59 AM CDT this procedure are in the results section. FRACTIONATED BILIRUBIN AM 05/12/2020 Resul ts for 5:38 AM CDT this procedure are in the results section. TOTAL PROTEIN AM 05/12/2020 Results for 5:38 AM CDT this procedure are in the results section. ASPARTATE AMINOTRANSFERASE AM 05/12/2020 R esults for 5:38 AM CDT this procedure are in the results section. ALANINE AMINOTRANSFERASE AM 05/12/2020 Res ults for 5:38 AM CDT this procedure are in the results section. ALKALINE PHOSPHATASE AM 05/12/2020 Results for 5:38 AM CDT this procedure are in the results section. ALBUMIN LEVEL AM 05/12/2020 Results for 5:38 AM CDT this procedure are in the results section. HC PROCALCITONIN (PCT) AM 05/12/2020 Resul ts for 5:38 AM CDT this procedure are in the results section. MANUAL DIFFERENTIAL AM 05/12/2020 Results for 5:38 AM CDT this procedure are in the results section. Results CBC AM 05/12/2020 Results for 5:38 AM CDT this procedure are in the results section. CALCIUM LEVEL TOTAL AM 05/12/2020 Results for 5:38 AM CDT this procedure are in the results section. .GLOMERULAR FILTRATION RATE AM 05/12/2020 Results for 5:38 AM CDT this procedure are in the results section. SERUM CREATININE AM 05/12/2020 Results for 5:38 AM CDT this procedure are in the results section. ELECTROLYTE PANEL AM 05/12/2020 Results fo r 5:38 AM CDT this procedure are in the results section. BLOOD UREA NITROGEN AM 05/12/2020 Results for 5:38 AM CDT this procedure are in the results section. GLUCOSE LEVEL AM 05/12/2020 Results for 5:38 AM CDT this procedure are in the results section. COMPLETE BLOOD COUNT W/ AM 05/12/2020 DIFFERENTIAL 5:38 AM CDT PHOSPHORUS LEVEL AM 05/12/2020 Results for 5:38 AM CDT this procedure are in the results section. MAGNESIUM LEVEL AM 05/12/2020 Results for 5:38 AM CDT this procedure are in the results section. BASIC METABOLIC PANEL, AM 05/12/2020 CALCIUM TOTAL 5:38 AM CDT MANUAL DIFFERENTIAL Routine 05/11/2020 Results for 7:24 PM CDT this procedure are in the results section. Results CBC Routine 05/11/2020 Results for 7:24 PM CDT this procedure are in the results section. COMPLETE BLOOD COUNT W/ Routine 05/11/2020 DIFFERENTIAL 7:24 PM CDT IR IVC FILTER PLACEMENT Routine 05/11/2020 Acute DVT of lowe r Results for 4:33 PM CDT leg this procedure are in the results section. US LEG VENOUS DOPPLER Routine 05/11/2020 Result s for BILATERAL 12:53 PM CDT this procedure are in the results section. PARTIAL THROMBOPLASTIN TIME STAT 05/11/2020 Results for 10:16 AM CDT this procedure are in the results section. PROTHROMBIN TIME Now 05/11/2020 Results for 10:16 AM CDT this procedure are in the results section. TMP CROSSMATCH INTERPRETATION Routine 05/11/2020 Results for 8:01 AM CDT this procedure are in the results section. TMP INTERPRETATION MANUAL Routine 05/11/2020 Re sults for ANTIBODY SCREEN NEGATIVE 8:01 AM CDT thi s procedure are in the results section. CLOT EXPIRATION DATE Routine 05/11/2020 Results for 8:01 AM CDT this procedure are in the results section. ANTIBODY SCREEN MANUAL Routine 05/11/2020 Resul ts for 8:01 AM CDT this procedure are in the results section. ABORH MANUAL Routine 05/11/2020 Results for 8:01 AM CDT this procedure are in the results section. PRBC PRODUCT READY FOR PICK Routine 05/11/2020 Results for UP 7:59 AM CDT this procedure are in the results section. PREPARE RBC Routine 05/11/2020 Results for 7:59 AM CDT this procedure are in the results section. NT PRO BNP Routine 05/11/2020 Results for 7:22 AM CDT this procedure are in the results section. MANUAL DIFFERENTIAL AM 05/11/2020 Results for 7:22 AM CDT this procedure are in the results section. Results CBC AM 05/11/2020 Results for 7:22 AM CDT this procedure are in the results section. CALCIUM LEVEL TOTAL AM 05/11/2020 Results for 7:22 AM CDT this procedure are in the results section. .GLOMERULAR FILTRATION RATE AM 05/11/2020 Results for 7:22 AM CDT this procedure are in the results section. SERUM CREATININE AM 05/11/2020 Results for 7:22 AM CDT this procedure are in the results section. ELECTROLYTE PANEL AM 05/11/2020 Results fo r 7:22 AM CDT this procedure are in the results section. BLOOD UREA NITROGEN AM 05/11/2020 Results for 7:22 AM CDT this procedure are in the results section. GLUCOSE LEVEL AM 05/11/2020 Results for 7:22 AM CDT this procedure are in the results section. FRACTIONATED BILIRUBIN AM 05/11/2020 Resul ts for 7:22 AM CDT this procedure are in the results section. TOTAL PROTEIN AM 05/11/2020 Results for 7:22 AM CDT this procedure are in the results section. ASPARTATE AMINOTRANSFERASE AM 05/11/2020 R esults for 7:22 AM CDT this procedure are in the results section. ALANINE AMINOTRANSFERASE AM 05/11/2020 Res ults for 7:22 AM CDT this procedure are in the results section. ALKALINE PHOSPHATASE AM 05/11/2020 Results for 7:22 AM CDT this procedure are in the results section. ALBUMIN LEVEL AM 05/11/2020 Results for 7:22 AM CDT this procedure are in the results section. COMPLETE BLOOD COUNT W/ AM 05/11/2020 DIFFERENTIAL 7:22 AM CDT PHOSPHORUS LEVEL AM 05/11/2020 Results for 7:22 AM CDT this procedure are in the results section. MAGNESIUM LEVEL AM 05/11/2020 Results for 7:22 AM CDT this procedure are in the results section. BASIC METABOLIC PANEL, AM 05/11/2020 CALCIUM TOTAL 7:22 AM CDT HEPATIC FUNCTION PANEL AM 05/11/2020 7:22 AM CDT URINALYSIS WITH MICROSCOPIC Now 05/11/2020 Results for IF INDICATED 5:37 AM CDT this procedure are in the results section. TMP TRANSFUSION REACTION STAT 05/11/2020 Res ults for INTERPRETATION 5:35 AM CDT this procedure are in the results section. TRANSFUSION REACTION STAT 05/11/2020 Results for 5:35 AM CDT this procedure are in the results section. XR CHEST 1 VW STAT 05/11/2020 Results for 5:28 AM CDT this procedure are in the results section. NT PRO BNP Timed Study 05/11/2020 Results for 5:19 AM CDT this procedure are in the results section. CARDIAC PANEL Timed Study 05/11/2020 Results for 5:19 AM CDT this procedure are in the results section. GENERAL LABORATORY ADD ON Now 05/11/2020 Re sults for TEST 5:18 AM CDT this procedure are in the results section. TRANSFUSE RED BLOOD CELLS Routine 05/11/2020 2:58 AM CDT EKG, 12-LEAD (PORTABLE) Routine 05/11/2020 URINALYSIS WITH MICROSCOPIC Now 05/10/2020 Results for IF INDICATED 11:22 PM CDT this procedure are in the results section. URINE CULTURE Now 05/10/2020 Results for 11:22 PM CDT this procedure are in the results section. CT CHEST W CONTRAST STAT 05/10/2020 Results for 10:10 PM CDT this procedure are in the results section. CT ABDOMEN PELVIS W CONTRAST STAT 05/10/2020 Results for 10:10 PM CDT this procedure are in the results section. TMP CROSSMATCH INTERPRETATION Now 05/10/2020 Results for 9:33 PM CDT this procedure are in the results section. CLOT EXPIRATION DATE Routine 05/10/2020 Results for 9:33 PM CDT this procedure are in the results section. TMP INTERPRETATION ANTIBODY Routine 05/10/2020 Results for SCREEN NEGATIVE 9:33 PM CDT this procedure are in the results section. ANTIBODY SCREEN Now 05/10/2020 Results for 9:33 PM CDT this procedure are in the results section. ABORH Now 05/10/2020 Results for 9:33 PM CDT this procedure are in the results section. CONFIRM ABORH TYPE Now 05/10/2020 Results f or 9:33 PM CDT this procedure are in the results section. TYPE AND SCREEN Now 05/10/2020 9:33 PM CDT PRBC PRODUCT READY FOR PICK Routine 05/10/2020 Results for UP 8:23 PM CDT this procedure are in the results section. PREPARE RBC Routine 05/10/2020 Results for 8:23 PM CDT this procedure are in the results section. XR ABDOMEN 2 VW AP W UPRIGHT Routine 05/10/2020 Results for AND OR DECUBITUS 7:47 PM CDT this procedure are in the results section. FRACTIONATED BILIRUBIN Now 05/10/2020 Resul ts for 7:08 PM CDT this procedure are in the results section. TOTAL PROTEIN Now 05/10/2020 Results for 7:08 PM CDT this procedure are in the results section. ASPARTATE AMINOTRANSFERASE Now 05/10/2020 R esults for 7:08 PM CDT this procedure are in the results section. ALANINE AMINOTRANSFERASE Now 05/10/2020 Res ults for 7:08 PM CDT this procedure are in the results section. ALKALINE PHOSPHATASE Now 05/10/2020 Results for 7:08 PM CDT this procedure are in the results section. ALBUMIN LEVEL Now 05/10/2020 Results for 7:08 PM CDT this procedure are in the results section. CALCIUM LEVEL TOTAL Now 05/10/2020 Results for 7:08 PM CDT this procedure are in the results section. .GLOMERULAR FILTRATION RATE Now 05/10/2020 Results for 7:08 PM CDT this procedure are in the results section. SERUM CREATININE Now 05/10/2020 Results for 7:08 PM CDT this procedure are in the results section. ELECTROLYTE PANEL Now 05/10/2020 Results fo r 7:08 PM CDT this procedure are in the results section. BLOOD UREA NITROGEN Now 05/10/2020 Results for 7:08 PM CDT this procedure are in the results section. GLUCOSE LEVEL Now 05/10/2020 Results for 7:08 PM CDT this procedure are in the results section. MANUAL DIFFERENTIAL Now 05/10/2020 Results for 7:08 PM CDT this procedure are in the results section. Results CBC Now 05/10/2020 Results for 7:08 PM CDT this procedure are in the results section. LIPASE LEVEL Now 05/10/2020 Results for 7:08 PM CDT this procedure are in the results section. AMYLASE LEVEL Now 05/10/2020 Results for 7:08 PM CDT this procedure are in the results section. LACTATE DEHYDROGENASE Now 05/10/2020 Result s for 7:08 PM CDT this procedure are in the results section. PHOSPHORUS LEVEL Now 05/10/2020 Results for 7:08 PM CDT this procedure are in the results section. MAGNESIUM LEVEL Now 05/10/2020 Results for 7:08 PM CDT this procedure are in the results section. COMPREHENSIVE METABOLIC PANEL Now 05/10/2020 7:08 PM CDT COMPLETE BLOOD COUNT W/ Now 05/10/2020 DIFFERENTIAL 7:08 PM CDT RESPIRATORY VIRAL PANEL + Now 05/10/2020 Re sults for COVID-19, NASOPHARYNGEAL SWAB 7:08 PM CDT this procedure are in the results section. OSI CT CHEST ABDOMEN PELVIS Routine 04/01/2020 Cancer Results for 10:18 PM CLOTH FRAMER this procedure are in the results section. PATHOLOGY OUTSIDE Routine 03/30/2020 Results fo r INTERPRETATION this procedure are in the results section. after 09/23/2019 Results .Serum Creatinine (09/02/2020 5:12 AM CDT)Only the most recent of42 results within the time period is included. Pathologist Sig nature Creatinine 0.29 (L) 0.51 - 0.95 mg/dL [facility] Specimen Blood Performing Organization Address City/State/ZIP Code Phon e Number [facility] Unless otherwise noted, [place] [address] [place] all lab tests performed by: Division of Pathology and Laboratory Medicine [facility]5 Brigitte Lopez .CBC (09/02/2020 5:12 AM CDT)Only the most recent of41 resultswithin the time period is included. WBC 9.9 4.0 - 11.0 [facility] K/uL [facility] RBC 2.79 (L) 4.00 - 5.50 [facility] M/uL [facility] Hgb 8.6 (L) 12.0 - 16.0 [facility] gm/dL [facility] Hct 26.5 (L) 37.0 - 47.0 % [facility] MCV 95 82 - 98 fL [facility] MCH 30.8 27.0 - 31.0 pg [facility] MCHC 32.5 31.0 - 36.0 [facility] gm/dL [facility] RDW-SD 64.8 (H) 35.1 - 46.3 fL [facility] RDW-CV 19.6 (H) 12.0 - 15.5 % [facility] Platelet count 516 (H) 140 - 440 K/uL [facility] MPV 9.5 4.0 - 10.4 fL [facility] INRBC 0.0 <=0.0 % [facility] Comment: [facility] The INRBC (instrument NRBC) value reflects the enumera tion of nucleated red blood cells contained in a 200uL samp le of whole blood analyzed by the instrument. This value may differ from the NRBC value reported in a manual differ ential, which is based on a 100 cell differential. Specimen Blood Performing Organization Address City/[facility] Code Phon e Number [facility] Unless otherwise noted, [place] [address] [place] all lab tests performed by: Division of Pathology and Laboratory Medicine [address] [facility] Glomerular Filtration Rate (09/02/2020 5:12 AM CDT)Only the most recent of42 resultswithin the time period is included. eGFR-AA 131 >=60 [facility] Comment: mL/min/1.73 [facility] Normal eGFR: >= 60 mL/min/1.73 m2 sq. m Note: The eGFR is calculated using the CKD-EPI equation. The eGFR declines with age. eGFR <60 mL/min/1.73 m2 is considered as "decreased". This equation should only be used for patients 18 and older. According to the National dney Foundation's Kidney Disease Outcome Quality Initiative (KDOQI) classification and 2012 Kidney Disease Improving Global Outcomes (KDIGO) Clinical Practice Guideline, the stage of CKD should be categorized based on estimated GFR. Stage Description GFR mL/min/1.73 m2 1 Normal or high GFR >=90 2 Mildly decreased GFR 60-89 3a Mildly to moderately decreased GFR 45-59 3b Moderately to severely decreased GFR 30-44 4 Severely decreased GFR 15-29 5 Kidney failure <15 eGFR-ERIC 114 >=60 [facility] Comment: mL/min/1.73 [facility] Normal eGFR: >= 60 mL/min/1.73 m2 sq. m Note: The eGFR is calculated using the CKD-EPI equation. The eGFR declines with age. eGFR <60 mL/min/1.73 m2 is considered as "decreased". This equation should only be used for patients 18 and older. According to the National dney Foundation's Kidney Disease Outcome Quality Initiative (KDOQI) classification and 2012 Kidney Disease Improving Global Outcomes (KDIGO) Clinical Practice Guideline, the stage of CKD should be categorized based on estimated GFR. Stage Description GFR mL/min/1.73 m2 1 Normal or high GFR >=90 2 Mildly decreased GFR 60-89 3a Mildly to moderately decreased GFR 45-59 3b Moderately to severely decreased GFR 30-44 4 Severely decreased GFR 15-29 5 Kidney failure <15 Specimen Blood Performing Organization Address City/[facility]/ZIP Code Phon e Number [facility] Unless otherwise noted, [address] all lab tests performed by: Division of Pathology and Laboratory Medicine [address] [facility] Fractionated Bilirubin (09/02/2020 5:12 AM CDT)Only the most recent of40 resultswithin the time period is included. [facility] Bili Total 4.0 (H) <=1.2 mg/dL [facility] Comment: [facility] Indocyanine Green (ICG) may cause falsely elevated bilirubin results. Total and direct bilirubin must not be measured from samples containing indocyanine green. False elevation of total rian irubin can be seen in patients with IgG concentrations above 28 g/L. Bili Direct 3.2 (H)Comment: <=0.3 mg/dL [facility] Indocyanine Green [facility] (ICG) may cause falsely elevated bilirubin results. Total and direct bilirubin must not be measured from samples containing indocyanine green. Bili Indirect 0.8 0.0 - 0.9 [facility] mg/dL [facility] Specimen Blood Performing Organization Address City/State/ZIP Code Phon e Number [facility] CANCER Unless otherwise noted, [address] all lab tests performed by: Division of Pathology and Laboratory Medicine [address] Differential (09/02/2020 5:12 AM CDT)Only the most recent of41 resultswithin the time period is included. [facility] Neutrophil % 77.6 (H) 42.0 - 66.0 % [facility] Lymphocyte % 12.8 (L) 24.0 - 44.0 % [facility] Monocyte % 6.9 2.0 - 7.0 % [facility] Eosinophil % 1.2 1.0 - 4.0 % [facility] Basophil % 0.7 0.0 - 1.0 % [facility] IGRE % 0.8 (H)Comment: 0.0 - 0.4 % [facility] IGRE % count [facility] includes Metamyelocytes, Myelocytes, and Promyelocytes. Neutrophil Abs 7.69 (H) 1.70 - 7.30 [facility] Lymphocyte Abs 1.27 1.00 - 4.80 [facility] Monocyte Abs 0.68 0.08 - 0.70 [facility] Eosinophil Abs 0.12 0.04 - 0.40 [facility] Basophil Abs 0.07 0.00 - 0.10 [facility] IG Abs 0.08 (H) 0.00 - 0.04 [facility] Specimen Blood Performing Organization Address City/[facility] Phon e Number [facility] CANCER Unless otherwise noted, [address] all lab tests performed by: Division of Pathology and Laboratory Medicine [address] BUN (09/02/2020 5:12 AM CDT)Only the most recent of42 resultswithin the time period is included. Pathologist Sig nature BUN 14 6 - 23 mg/dL [facility] Specimen Blood Performing Organization Address [facility] Phon e Number [facility] CANCER Unless otherwise noted, [address] all lab tests performed by: Division of Pathology and Laboratory Medicine [address] ALT (09/02/2020 5:12 AM CDT)Only the most recent of40 resultswithin the time period is included. Pathologist Sig nature ALT 64 (H) <=33 U/L [facility] Specimen Blood Performing Organization Address City/[facility] Phon e Number [facility] CANCER Unless otherwise noted, [address] all lab tests performed by: Division of Pathology and Laboratory Medicine [address] Aspartate Aminotransferase (09/02/2020 5:12 AM CDT)Only the most recent of40 resultswithin the time period is included. Pathologist Sig nature AST 80 (H) <=32 U/L [facility] Specimen Blood Performing Organization Address City/[facility] Phon e Number [facility] CANCER Unless otherwise noted, [address] all lab tests performed by: Division of Pathology and Laboratory Medicine [address] Total Protein (09/02/2020 5:12 AM CDT)Only the most recent of40 resultswithin the time period is included. Pathologist Sig nature Total Protein 5.2 (L) 6.4 - 8.3 g/dL [facility] Specimen Blood Performing Organization Address City/[facility]/ZIP [facility] Phon e Number [facility] CANCER Unless otherwise noted, [address] all lab tests performed by: Division of Pathology and Laboratory Medicine [address] Phosphorus Level (09/02/2020 5:12 AM CDT)Only the most recent of34 results within the time period is included. Pathologist Sig nature Phosphorus 2.9 2.5 - 4.5 mg/dL [facility] [address] Specimen Blood Performing Organization Address [facility] Phon e Number [facility] Unless otherwise noted, [address] all lab tests performed by: Division of Pathology and Laboratory Medicine [address] Alkaline Phosphatase (09/02/2020 5:12 AM CDT)Only the most recent of40 results within the time period is included. Pathologist Sig nature Alk Phos 831 (H) 35 - 104 U/L [facility] Specimen Blood Performing Organization Address [facility] Phon e Number [facility] Unless otherwise noted, [address] all lab tests performed by: Division of Pathology and Laboratory Medicine [address] Magnesium Level (09/02/2020 5:12 AM CDT)Only the most recent of35 resultswithin the time period is included. Pathologist Sig nature Magnesium 2.2 1.6 - 2.6 mg/dL [facility] [address] Specimen Blood Performing Organization Address [facility] Phon e Number [facility] Unless otherwise noted, [address] all lab tests performed by: Division of Pathology and Laboratory Medicine [address] Glucose Level (09/02/2020 5:12 AM CDT)Only the most recent of42 resultswithin the time period is included. Glucose Level 87 70 - 99 mg/dL [facility] Comment: [facility] CENTER Effective 09/01/15, the gluco se reference intervals have been updated based on [place] [employer] guidelines (Standards of Medical Care in Diabetes 2016. Diabetes Care 2016; 39: S13-S22). Fasting blood glucose: Normal: 70-99 mg/dL Impaired fasting glucose (in creased risk for diabetes or pre-diabetes): 100- 125 mg/dL Diabetes mellitus: >/=126 mg/dL Random blood glucose: Normal: 70-199 mg/dL Note: Random glucose >100 mg/dL is assoc iated with increased risk for diabetes Specimen Blood Performing Organization Address City/[facility] Phon e Number [facility] CANCER Unless otherwise noted, [address] all lab tests performed by: Division of Pathology and Laboratory Medicine [address] Calcium Level (09/02/2020 5:12 AM CDT)Only the most recent of40 resultswithin the time period is included. Pathologist Sig nature Calcium Lvl 7.9 (L) 8.4 - 10.2 mg/dL [facility] Specimen Blood Performing Organization Address [facility] Phon e Number [facility] Unless otherwise noted, [address] all lab tests performed by: Division of Pathology and Laboratory Medicine [facility] Albumin Level (09/02/2020 5:12 AM CDT)Only the most recent of40 resultswithin the time period is included. Pathologist Sig nature Albumin Lvl 2.4 (L) 3.5 - 5.2 gm/dL [facility] Specimen Blood Performing Organization Address [facility] Phon e Number [facility] CANCER Unless otherwise noted, [address] all lab tests performed by: Division of Pathology and Laboratory Medicine [address] Electrolyte Panel (09/02/2020 5:12 AM CDT)Only the most recent of44 results within the time period is included. Pathologist Sig nature Sodium Lvl 139 136 - 145 mEq/L [facility] Potassium Lvl 3.6 3.5 - 5.1 mEq/L [facility] Chloride 107 98 - 107 mEq/L [facility] CO2 24 22 - 29 mEq/L [facility] Anion Gap 8 4 - 14 mEq/L [facility] Specimen Blood Performing Organization Address [facility] Phon e Number [facility] Unless otherwise noted, [address] all lab tests performed by: Division of Pathology and Laboratory Medicine [address] Transfuse RBC:Transfusion Date: 09/01/2020 (09/01/2020 9:01 PM CDT)Only the most recent of9 resultswithin the time period is included.Clot Expiration Date (09/01/2020 11:55 AM CDT)Only the most recent of11 resultswithin the time period is included. Pathologist Manny nature T & S Expiration 09/04/2020 [facility] Specimen Blood Performing Organization Address City/[facility] Phon e Number [facility] CANCER Unless otherwise noted, [address] all lab tests performed by: Division of Pathology and Laboratory Medicine [address] [place] [address] TMP Interpretation Antibody Screen Negative (09/01/2020 11:55 AM CDT)Only the most recent of10 resultswithin the time period is included. [facility] Shilo [facility] Auto Neg ABSC At the present time, patimarilu gregory plasma shows no evidence of RBC alloantibodies. [facility] Interp Comment: [facility] COLBY HASTINGS, Dictated by: COLBY HASTINGS, Dictated Date/Time: 09.03.19 10:23 AM CDT Transcribed Date/Time: 09.02.2020 10:23 AM CDT Electronically Signed By: COLBY HASTINGS, on 10:23 AM Specimen Blood Performing Organization Address City/[facility] Phon e Number [facility] CANCER Unless otherwise noted, [address] all lab tests performed by: Division of Pathology and Laboratory Medicine [address] [place] [address] [address] TMP Interpretation Crossmatch (09/01/2020 11:55 AM CDT)Only the most recent of8 resultswithin the time period is included. Pathologist Shilo [facility] XM Interp RBC units crossmatched for transfusion appear ac ceptable. [facility] Comment: [facility] COLBY HASTINGS, Dictated by: COLBY HASTINGS, Dictated Date/Time: 09.03.19 10:23 AM CDT Transcribed Date/Time: 09.02.2020 10:23 AM CDT Electronically Signed By: COLBY HASTINGS on 021 10:23 AM Specimen Blood Performing Organization Address City/[facility]/ZIP Code Phon e Number [facility] CANCER Unless otherwise noted, [address] all lab tests performed by: Division of Pathology and Laboratory Medicine [address] [place] [address] ABORh (09/01/2020 11:55 AM CDT)Only the most recent of10 resultswithin the time period is included. Pathologist Sig nature ABORh. O NEG [facility] Specimen Blood Performing Organization Address City/[facility] Phon e Number [facility] CANCER Unless otherwise noted, [address] all lab tests performed by: Division of Pathology and Laboratory Medicine [address] [place] [address] Antibody Screen (09/01/2020 11:55 AM CDT)Only the most recent of10 resultswithin the time period is included. Pathologist Sig nature ABSC. Negative ABSC [facility]ER [facility]ENTE R Specimen Blood Performing Organization Address City/[facility] Phon e Number [facility] CANCER Unless otherwise noted, [address] all lab tests performed by: Division of Pathology and Laboratory Medicine [address] [place] [address] RBC Product Ready for Hospital Nursing Assistant (09/01/2020 9:44 AM CDT)Only the most recent of8 resultswithin the time period is included. PRBC Product Ready B2 Blood [facility] for Hospital Nursing Assistant BankComment: CANCER CENTER Product is ready for cloth picker on September 01, 2020 16:54:51 CDT. Specimen Blood Performing Organization Address City/[facility]/ZIP [facility] Phon e Number [facility] CANCER Unless otherwise noted, [address] all lab tests performed by: Division of Pathology and Laboratory Medicine [address] [place] [address] Prepare RBC:[id number], 1 Units (09/01/2020 9:44 AM CDT)Only the most recent of8 resultswithin the time period is included. PRBC Product Ready 1Comment: Red Blood [facility] Cells Available - CAN[facility]ER CENTER Order Form 03 when ready for product issue. Unit Number [id number] [facility] Product Code [id number] [facility] Unit Expiration [id number] [facility] Unit Blood Type 9500 [facility] Product Code Text RBCIRLR CPD AS1 [facility] 500mL [facility] Crossmatch [id number] [facility] Expiration Date CAN[facility]ER CENTER Unit Irradiated IRRADIATED [facility] Dispense Status ISSUED [facility] [place] Unit Blood Type O Negative [facility] Product Hospital Nursing Assistant .BPAMComment: [facility] Location CANCER CENTER Specimen Blood Performing Organization Address City/State/ZIP Code Phon e Number [facility] CANCER Unless otherwise noted, [place] [address] CENTER all lab tests performed by: Division of Pathology and Laboratory Medicine [address] [place] [address] CT Head without Contrast (08/29/2020 4:23 PM CDT) Specimen Impressions Performed At 1. No acute intracranial abnormality. If there is co ncern for acute [id number] stroke, recommend diffusion-weighted silvio ging. I personally reviewed these image(s) along with the resident's/fellow's interpretations, certify that if a procedure was performed I was physically present, and agree with the final report. Narrative Performed At FULL RESULT: [id number] EXAMINATION: CT HEAD WO CONTRAST on 08/29 4:23 PM COMPARISON: None HISTORY: Rectal cancer INDICATION: Headache, headache, met eval TECHNIQUE: CT scan of the brain was performed without intravenous contrast as per departmental protocol. FINDINGS: The brain parenchyma is unremarkable. The bustos-white m atter differentiation is maintained. There is no evidence for intra-axial or extra-axial he morrhage. No midline shift or mass effect seen. There is no evidenc e for hydrocephalus. There is no large acute territorial infa rction. There is partial opacification of the ma stoids on the right. Procedure Note Interface, Radiology Results In - 2020 5:05 PM CDT FULL RESULT: EXAMINATION: CT HEAD WO CONTRAST on 08/29 4:23 PM COMPARISON: None HISTORY: Rectal cancer INDICATION: Headache, headache, met eval TECHNIQUE: CT scan of the brain was perf ormed without intravenous contrast as per departmental protocol. FINDINGS: The brain parenchyma is unremarkable. Th e bustos-white matter differentiation is maintained. There is no evidence for intra-axial or extra-axial hemorrhage. No midline shift or mass effect seen. There is no evidence for hydrocephalus. There is no large acute territorial infa rction. There is partial opacification of the ma stoids on the right. IMPRESSION: 1. No acute intracranial abnormality. I f there is concern for acute stroke, recommend diffusion-weighted imaging. I personally reviewed these image(s) thi ng with the resident's/fellow's interpretations, certify that if a procedure was performed I was physically present, and agree with the final report. Performing Organization Address City/[facility] Code Phon e Number [id number] Hemoglobin (08/28/2020 7:38 PM CDT)Only the most recent of10 resultswithin the time period is included. Pathologist Sig nature Hgb 8.0 (L) 12.0 - 16.0 gm/dL [facility] Specimen Blood Performing Organization Address City/[facility] Code Phon e Number [facility] CANCER Unless otherwise noted, [address] all lab tests performed by: Division of Pathology and Laboratory Medicine [facility] Blood Culture - Port a Cath (08/26/2020 6:29 PM CDT)Only the most recent of8 resultswithin the time period is included. Final Report No growth [facility] Path Review - Culture yield may be affecte d by sample quality, prior treatment, and transportation conditions. [facility] Bottle/Isolator ... [facility]ER CENTER The results have been reviewed and electronically sign ed by Pathologist: Christopher Cassidy MD, PhD #[id number] Specimen Blood - Port-a-Cath Performing Organization Address City/[facility] Phon e Number [facility] CANCER Unless otherwise noted, [address] all lab tests performed by: Division of Pathology and Laboratory Medicine [address] Echocardiogram 2D Complete (08/26/2020 10:00 AM CDT) Specimen Narrative Performed At Echocardiographic Report ISCV Interpretation Summary A complete two-dimensional transthoracic echocardiogra m was performed (2D, M-mode, Spectral and color Doppler). There is no comparison study available. Normal left ventricular size and systoli c function. LV ejection fraction calculated using the bi-plane met hod of disks is 62 %. The right ventricle is normal in size an d function. Right ventricular systolic pressure is n ormal. There is no pericardial effusion. Left Ventricle: Normal left ventricular size and systolic function. In creased LV mass is noted using a 2D method. Increased LV mass is noted us ing a 2D method. LV mass index: 91.2 g/m2. ( N: 44-88 g/m2 ). LV ejecti on fraction calculated using the bi-plane method of disks is 62 %. I WMSI = 1.00 % Normal = 1 00 X - Cannot 1 - Normal 2 - 3 - Akinetic 4 - Dyskinetic Interpret Hyp okinetic 5 - Aneurysmal 3D imaginD volumes were not performed in this st udy. Cardiac Mechanics/Speckle Tracking Imagi ng: Speckle tracking imaging was not perform ed in this study. (GE Study). Diastology: Impaired LV relaxation pattern as expect ed for age. Right Ventricle: The right ventricle is normal in size an d function. Atria: The left atrium is borderline dilated. Lipomatous hype rtrophy of the interatrial septum is noted. Mitral Valve: Mild thickening changes are noted. There is trace mitral regurgitation. Tricuspid Valve: The tricuspid valve is not well visualized, but is gisell ssly normal. There is mild tricuspid regurgitation. Estimated RVSP is 25- 30mmHg. Right ventricular systolic pressure is normal. Aortic Valve: The aortic valve is trileaflet. Mild aortic valve thic kening. The aortic valve opens well. There is trace aortic regurgitation. Pulmonic Valve: The pulmonic valve is not well visualize d. Great Vessels: The aortic root is normal size. IVC is small, consiste nt with intravascular depletion. Pericardium/Pleural: There is no pericardial effusion. A pleu ral effusion is noted. Preliminary Reviewer Preliminary Interpretation: Denisse Vega MD. MMode/2D Measurements IVSd: 0.97 cm LVIDd: 5.0 cm LVPWd: 0.95 cm LV mass(AL)d: 166.8 grams Ao root diam: 3.3 cm LV mass(AL)dI: 91.2 grams/m2 Ao root area: 8.5 cm2 LVOT diam: 2.3 cm EDV(MOD-A4C): 89.4 ml ESV(MOD-A4C): 35.6 m l LVOT area: 4.0 cm2 EF(MOD-A4C): 60.2 % EDV(MOD-A2C): 100.2 ml ESV(MOD-A2C): 34.4 ml EDV(MOD-bp): 98.6 ml EF(MOD-A2C): 65.6 % ESV(MOD-bp): 37.5 ml EF(MOD-bp): 62.0 % LAV(MOD-A2C): 82.7 ml EDV (MOD-bp) Index: 53.9 ml/m2 LAV(MOD-A4C): 46.6 ml LAV(MOD-bp): 63.0 ml LAV(MOD-bp) Indexed: 34.4 ml/m2 ESV (MOD-bp) Index: 20.5 ml/m2 RWT: 0.38 cm Doppler Measurements MV E max andrea: 67.5 cm/sec M V V2 max: 74.7 cm/sec MV A max andrea: 76.7 cm/sec M V max P.2 mmHg MV E/A: 0.88 MV V2 mean: 47.8 cm/sec MV mean P.0 mmHg MV V2 VTI: 15.8 cm MVA(VTI): 4.9 cm2 MV P1/2t max andrea: 67.5 cm/sec Ao V 2 max: 124.2 cm/sec MV P1/2t: 58.8 msec Ao max P.2 mmHg MVA(P1/2t): 3.7 cm2 Ao V2 mean: 67.0 cm/sec Ao mean P.3 mmHg MV dec slope: 336.6 cm/sec2 Ao V 2 VTI: 20.8 cm CATIE(I,D): 3.7 cm2 CATIE(V,D): 3.7 cm2 LV V1 max P.3 mmHg MR max andrea: 478.8 cm/sec LV V1 mean P.1 mmHg LV V1 max: 115.4 cm/sec LV V1 mean: 65.4 cm/sec LV V1 VTI: 19.2 cm SV(LVOT): 77.3 ml PA V2 max: 89.3 cm/sec PA max P.2 mmHg PA V 2 mean: 53.4 cm/sec PA mean P.4 mmHg PA V2 VTI: 16.2 cm TR max andrea: 252.4 cm/sec RA P systole: 3.0 mmHg TR max P.5 mmHg RVSP(TR): 28.5 mmHg CATIE Index (I,D): 2.0 CATIE Index (V,D): 2.0 Dimensionless Index: 0.93 E /e' (avg): 7.7 E/e' (lat): 7.1 E/e' (sept): 8.3 62 Procedure Note Interface, Radiology Results In - 2020 3:31 PM CDT Echocardiographic Report Interpretation Summary A complete two-dimensional transthoracic echocardiogram was performed (2D, M- mode, Spectral and color Doppler). There is no comparison study available. Normal left ventricular size and systoli c function. LV ejection fraction calculated using th e bi-plane method of disks is 62 %. The right ventricle is normal in size an d function. Right ventricular systolic pressure is n ormal. There is no pericardial effusion. Left Ventricle: Normal left ventricular size and systoli c function. Increased LV mass is noted using a 2D method. Increased LV mass is noted using a 2D method. LV mass index: 91.2 g/m2. ( N: 44-88 g/m2 ). LV ejection fraction calculated using the bi-plane method of disks is 62 %. I WMSI = 1.00 % Normal = 100 X - Cannot 1 - Normal 2 - 3 - Akinetic 4 - Dyskinetic Interpret Hypokinetic 5 - Aneurysmal 3D imaginD volumes were not performed in this st udy. Cardiac Mechanics/Speckle Tracking Imagi ng: Speckle tracking imaging was not perform ed in this study. ([place] Study). Diastology: Impaired LV relaxation pattern as expect ed for age. Right Ventricle: The right ventricle is normal in size an d function. Atria: The left atrium is borderline dilated. L ipomatous hypertrophy of the interatrial septum is noted. Mitral Valve: Mild thickening changes are noted. There is trace mitral regurgitation. Tricuspid Valve: The tricuspid valve is not well visualiz ed, but is grossly normal. There is mild tricuspid regurgitation. Estimated RVSP is 25-30mmHg. Right ventricular systolic pressure is normal. Aortic Valve: The aortic valve is trileaflet. Mild aor tic valve thickening. The aortic valve opens well. There is trace aortic regurgitation. Pulmonic Valve: The pulmonic valve is not well visualize d. Great Vessels: The aortic root is normal size. IVC is s mall, consistent with intravascular depletion. Pericardium/Pleural: There is no pericardial effusion. A pleu ral effusion is noted. Preliminary Reviewer Preliminary Interpretation: Denisse Vega MD. MMode/2D Measurements IVSd: 0.97 cm LVIDd: 5.0 cm LVPWd: 0.95 cm LV mass(AL)d: 166.8 grams Ao root nikki m: 3.3 cm LV mass(AL)dI: 91.2 grams/m2 Ao root are a: 8.5 cm2 LVOT diam: 2.3 cm EDV(MOD-A4C ): 89.4 ml ESV(MOD-A4C ): 35.6 ml LVOT area: 4.0 cm2 EF(MOD-A4C) : 60.2 % EDV(MOD-A2C): 100.2 ml ESV(MOD-A2C): 34.4 ml EDV(MOD-bp) : 98.6 ml EF(MOD-A2C): 65.6 % ESV(MOD-bp) : 37.5 ml EF(MOD-bp): 62.0 % LAV(MOD-A2C): 82.7 ml EDV (MOD-bp ) Index: 53.9 ml/m2 LAV(MOD-A4C): 46.6 ml LAV(MOD-bp): 63.0 ml LAV(MOD-bp) Indexed: 34.4 ml/m2 ESV (MOD-bp) Index: 20.5 ml/m2 RWT: 0.38 c m Doppler Measurements MV E max andrea: 67.5 cm/sec MV V2 max: 74.7 cm/sec MV A max andrea: 76.7 cm/sec MV max P.2 mmHg MV E/A: 0.88 MV V2 mean: 47.8 cm/sec MV mean P.0 mmHg MV V2 VTI: 15.8 cm MVA(VTI): 4.9 cm2 MV P1/2t max andrea: 67.5 cm/sec Ao V2 max: 124.2 cm/sec MV P1/2t: 58.8 msec Ao max P.2 mmHg MVA(P1/2t): 3.7 cm2 Ao V2 mean: 67.0 cm/sec Ao mean P.3 mmHg MV dec slope: 336.6 cm/sec2 Ao V2 VTI: 20.8 cm CATEI(I,D): 3.7 cm2 CATIE(V,D): 3.7 cm2 LV V1 max P.3 mmHg MR max andrea: 478.8 cm/sec LV V1 mean P.1 mmHg LV V1 max: 115.4 cm/sec LV V1 mean: 65.4 cm/sec LV V1 VTI: 19.2 cm SV(LVOT): 77.3 ml PA V2 max: 89.3 cm/sec PA max P.2 mmHg PA V2 mean: 53.4 cm/sec PA mean P.4 mmHg PA V2 VTI: 16.2 cm TR max andrea: 252.4 cm/sec RAP systole: 3.0 mmHg TR max P.5 mmHg RVSP(TR): 28.5 mmHg CATIE Index (I,D): 2.0 CATIE Index (V,D): 2.0 Dimensionless Index: 0.93 E/e' (avg): 7.7 E/e' (lat): 7.1 E/e' (sept): 8.3 62 Performing Organization Address City/State/ZIP Code Phon e Number [facility] CT Abdomen Pelvis with Contrast (08/26/2020 8:24 AM CDT)Only the most recent of 4 resultswithin the time period is included. Specimen Impressions Performed At [id number] 1. Multiple liver metastases are stable to slightly increased since 08/12/2020. No hepatic abscess can be seen . 2. The large confluent mass at the hilum of the live r causes biliary obstruction, despite the presence of rian iary stents. 3. The known primary tumors in the descending colon and rectum are again seen. 4. Large bilateral pleural effusions a nd diffuse anasarca. 5. Deep venous thrombus extending from the common fe moral veins to the caudal aspect of the inferior vena c catie filter is again seen. Narrative Performed At FULL RESULT: [id number] Examination: CT ABDOMEN PELVIS W BRIGITTE T, 08/26/2020 8:24 AM Clinical History: Rectal cancer Indication: E Faecalis bacteremia+ increased LFT. Eval for abdominal source including hepatic abscess Comparison: CT abdomen and pelvis 08/13/19 Technique: CT of the abdomen and pelvis was performed with intravenous contrast. Findings: There are stable large bilateral pleural effusions and associated atelectasis at the lung bases. Again identified are multiple liver metastases among s ome of which are calcified, that are stable to slightly increased since 08/12/2020. A client care representative lesion in segment VIII measures 2.5 cm (series 3 image 28) compared to 1.8 cm previously. The large confluent mass at the hilum of the liver surrounding the portal veins and ca using biliary obstruction appears overall stable. No hepatic abscess can be identified. A cutaneous transhepatic biliary catheter extends thro ugh the left liver to the duodenum. A biliary stent in the common b ile duct extends to the right hepatic ductal system. The spleen, pancreas and adrenal glands are unremarkable. The kidneys function without hydronephro sis. Visualized bowel loops are of normal caliber without o bstruction. Soft tissue thickening along the left lateral aspect of the rectum as well as circumferential thickening of the descending colon remains stable and presumed to represent the known prim janene tumors. An infrarenal inferior vena cava filter is noted. A Fo bhumika catheter is noted within the urinary bladder. There is a linear me tallic structure within the uterus that is stable, possibly a retained intrauterine device. There is diffuse anasarca. There are persistent filling defects extending from th e common femoral veins to the caudal aspect of the inferior vena cava f ilter compatible with chronic deep venous thrombus. Procedure Note Interface, Radiology Results In - 2020 8:57 AM CDT FULL RESULT: Examination: CT ABDOMEN PELVIS W BRIGITTE T, 08/26/2020 8:24 AM Clinical History: Rectal cancer Indication: E Faecalis bacteremia+ incre ased LFT. Eval for abdominal source including hepatic abscess Comparison: CT abdomen and pelvis 08/13/19 Technique: CT of the abdomen and pelvis was performed with intravenous contrast. Findings: There are stable large bilateral pleural effusions and associated atelectasis at the lung bases. Again identified are multiple liver meta stases among some of which are calcified, that are stable to slightly increased since 08/12/2020. A client care representative lesion in segment VIII measures 2.5 cm (series 3 image 28) compared to 1.8 cm previously. The large confluent mass at the hilum of the liver surrounding the portal veins and causing biliary obstruction appears overall stable. No hepatic abscess can be identified. A cutaneous transhepatic biliary cathete r extends through the left liver to the duodenum. A biliary stent in the common bile duct extends to the right hepatic ductal system. The spleen, pancreas and adrenal glands are unremarkable. The kidneys function without hydronephro sis. Visualized bowel loops are of normal babs iber without obstruction. Soft tissue thickening along the left lateral aspect of the rectum as well as circumferential thickening of the descending colon remains stable and presumed to represent the known primary tumors. An infrarenal inferior vena cava filter is noted. A Pinon catheter is noted within the urinary bladder. There is a linear metallic structure within the uterus that is stable, possibly a retained intrauterine device. There is diffuse anasarca. There are persistent filling defects ext ending from the common femoral veins to the caudal aspect of the inferior vena cava filter compatible with chronic deep venous thrombus. IMPRESSION: 1. Multiple liver metastases are stable to slightly increased since 08/12/2020. No hepatic abscess can be seen. 2. The large confluent mass at the hilu m of the liver causes biliary obstruction, despite the presence of biliary stents. 3. The known primary tumors in the desc ending colon and rectum are again seen. 4. Large bilateral pleural effusions an d diffuse anasarca. 5. Deep venous thrombus extending from the common femoral veins to the caudal aspect of the inferior vena cava filter is again seen. Performing Organization Address City/State/ZIP Code Phon e Number [id number] Creatine Kinase (08/26/2020 3:17 AM CDT) Pathologist Sig nature CK 15 (L) 26 - 192 U/L [facility] Specimen Blood Performing Organization Address City/State/ZIP Code Phon e Number [facility] CANCER Unless otherwise noted, [place] [address] CENTER all lab tests performed by: Division of Pathology and Laboratory Medicine [facility] Rainsvillegt Lopez CEA (08/25/2020 11:34 AM CDT)Only the most recent of3 resultswithin the time period is included. Pathologist Sig nature CEA 314.0 (H) <=3.8 ng/mL [facility] Comment: [facility] Reference Ranges: Smoker: 0.0 - 5.5 Non-Smoker: 0.0 - 3.8 Specimen Blood Performing Organization Address City/[facility]/ZIP Code Phon e Number [facility] CANCER Unless otherwise noted, [address] all lab tests performed by: Division of Pathology and Laboratory Medicine [address] Urinalysis with Microscopic (08/22/2020 2:18 PM CDT) Pathologist Sig nature UA WBC NOT SEEN 0 - 2 /HPF [facility] UA RBC 1 0 - 2 /HPF [facility] UA Mucous NOT SEEN Not Seen-Trace /HPF [facility] UA Bacteria 1+ (A) NOT SEEN /HPF [facility] UA Squam Epi 4+ (A) None-Occasional [facility] UA Hyal Cast 1 0 - 2 /LPF [facility] UA Yeast 1+ (A) NOT SEEN /HPF [facility] Specimen Urine Narrative Performed At Some reporting parameters within the Urinalysis test U [facility] have changed due to the implementation of new instrumentation in the [facility] [place], allowing greater sensitivity of measurement. Urinalysis results reporte d by the [facility] Centers using exist ing instrumentation, as well as Urinalysis testing perform ed manually or by backup methodology at the [facility] [place] will remain relatively unchanged. New reporting parameters and units will now be reported for all campuses. Performing Organization Address City/[facility]/ZIP Code Phon e Number [facility] CANC[facility] Unless otherwise noted, [address] all lab tests performed by: Division of Pathology and Laboratory Medicine [facility] Urinalysis w/Microscopic if Indicated (08/22/2020 2:18 PM CDT)Only the most recent of3 resultswithin the time period is included. Pathologist Sig nature UA Color Ирина (A) Straw-Yellow [facility] UA Appear Clear Clear [facility] UA Glucose NEG NEG mg/dL [facility] UA Bili NEG NEG [facility] UA Ketones NEG NEG mg/dL [facility] UA Spec Grav 1.009 1.003 - 1.035 [facility] UA Blood NEG NEG [facility] UA pH 6.0 5.0 - 9.0 [facility] UA Protein NEG NEG mg/dL [facility] UA Urobilinogen NEG NEG [facility] UA Nitrite NEG NEG [facility] UA Leuk Est NEG NEG [facility] Specimen Urine Performing Organization Address City/[facility] Phon e Number [facility] CANC[facility] Unless otherwise noted, [address] all lab tests performed by: Division of Pathology and Laboratory Medicine [address] [place] [address] Urine Culture (08/22/2020 2:18 PM CDT)Only the most recent of2 resultswithin the time period is included. Final Report 10 - 50,000 cfu/ml Enterococcus faecalis [facility] ... CANCER CENTER <10,000 cfu/ml Yeast isolated ... <10,000 cfu/ml Gram Negative Rods ... 10 - 50,000 cfu/ml Normal site paola present. (A) Path Review - The results have been review ed and electronically signed by Pathologist: [facility] Urine RONI GRAHAM MD #[id number] CANCER [facility] (A) Organism Enterococcus faecalis [facility] (A) [facility] Specimen Urine, Catherized Pinon Organism Antibiotic Method Susceptibility Enterococcus faecalis *CARSON expressed in MINIMUM INHIBITORY CARSON: MINT mcg/mL [facility] Enterococcus faecalis Ampicillin MINIMUM INHIBITORY <=2: Siddiqui sceptible [facility] Enterococcus faecalis Vancomycin MINIMUM INHIBITORY 2: Susc eptible [facility] Enterococcus faecalis Nitrofurantoin MINIMUM INHIBITORY <=16: S usceptible [facility] Performing Organization Address City/[facility] Phon e Number [facility] Unless otherwise noted, [address] all lab tests performed by: Division of Pathology and Laboratory Medicine [facility] POC Glucose Screen (08/22/2020 12:32 AM CDT) POC Glucose 98 70 - 99 mg/dL POC [facility] Comment: RN Notified Capillary blood samples, e.g . obtained by fingerstick, may have inaccurate results in patients with decreased peripheral blood flow. Method description: All resu lts are measured using Electrochemistry test methodology. The glucose in the sample mixes with the reagents on the test strip. The reaction produces an electric current. The amount of current produced is proportional to the glucose concentration in the blood. PO Sample Type Capillary POC [facility] Lab [facility], [address], [place] [address]; Hockey Scout: Stephanie Escamilla MD Specimen Blood Performing Organization Address [facility]/ZIP Code Phon e Number POC [facility] XR Abdomen 1 View Portable (08/21/2020 11:52 AM CDT) Specimen Impressions Performed At Large stool in rectosigmoid colon may suggest constipa tion. [id number] Narrative Performed At FULL RESULT: [id number] Examination: XR ABDOMEN 1 VW PORTABLE on 08/21/2020 11:52 AM Clinical History: Rectal cancer Indication: Abdominal Pain Comparison: CT on 08/12/2020 Technique: XR ABDOMEN 1 VW PORTABLE Findings: Unchanged appearance of bilateral internal grinding machine operator al/external biliary drains. Large stool in rectosigmoid colon may suggest constipa tion. The upstream colon is mildly distended measu ring 6.8 cm in diameter. IVC filter in right aspect of lumbar spi ne noted. Multilevel degenerative changes of the l ower lumbar spine noted. Procedure Note Interface, Radiology Results In - 2020 12:06 PM CDT FULL RESULT: Examination: XR ABDOMEN 1 VW PORTABLE on 08/21/2020 11:52 AM Clinical History: Rectal cancer Indication: Abdominal Pain Comparison: CT on 08/12/2020 Technique: XR ABDOMEN 1 VW PORTABLE Findings: Unchanged appearance of bilateral internal grinding machine operator al/external biliary drains. Large stool in rectosigmoid colon may siddiqui ggest constipation. The upstream colon is mildly distended measuring 6.8 cm in diameter. IVC filter in right aspect of lumbar spi ne noted. Multilevel degenerative changes of the l ower lumbar spine noted. IMPRESSION: Large stool in rectosigmoid colon may siddiqui ggest constipation. Performing Organization Address [facility] Code Phon e Number [id number] Calcium Ionized, Venous (08/21/2020 9:59 AM CDT)Only the most recent of6 resultswithin the time period is included. Pathologist Sig nature V Ion Ca 1.11 (L) 1.15 - 1.29 mmol/L [facility] Specimen Blood Performing Organization Address City/State/ZIP Code Phon e Number [facility] CANCER Unless otherwise noted, [place] [address] CENTER all lab tests performed by: Division of Pathology and Laboratory Medicine [address] EXCHANGE OF BILIARY DRAINAGE CATHETER (08/17/2020 4:26 PM CDT) Specimen Narrative Performed At This result has an attachment that is no t available. Date of Procedure: 08/17/20 Attending Physician: BREA LOFTON MD Census Clerk: None Pre Procedure Diagnosis: Carcinoma of colon, stage i v [[id number]] Post Procedure Diagnosis: Unchanged Indication: Rising bilirubin / Inadequate drainage a nd Cholangitis / Infection Title of Procedure: Percutaneous Image-Guided Exchange of Biliary Drainage Catheter(s). Operative Findings: Percutaneous image-guided exchange of left internal / external biliary drainage catheter(s). Consent: The procedure, risks, indications and alter natives were explained. All questions were answered and informed co nsent was obtained. I have reviewed the history and physical dictated by bri bell mid-level practitioner / fellow. Sedation/Anesthesia: Anesthesia provided by Anesthesia Department. Procedure in Detail: A time out was performed prior to the start of the pro cedure and the correct patient, procedure, presence of consent, site, and side were confirmed with all members of the team. The patient was placed in a supine position on the flu oroscopy table and the upper abdomen and catheter were prepped and draped in the usual sterile fashion. Lidocaine 1% was used for local anest hesia. A structural mill supervisor view was obtained of the abdomen and catheter. A cholangi ogram was performed through the catheter(s). The existing 10 Bahraini left internal / external biliar y catheter was cut and was exchanged over a wire for a new 10 [place]raini exte nded side-hole biliary catheter which was formed in the duodenum. The catheter was secured to the skin with suture. Additional Comments: The existing catheter is occlud ed and retracted into the parenchyma. Estimated Blood Loss: Minimal Specimens Removed: No Immediate Complications: None Disposition: PACU Plan: Catheter to gravity drainage until further notice. Return for routine exchange in 2 months Prothrombin Time (08/17/2020 3:29 AM CDT)Only the most recent of8 resultswithin the time period is included. Pathologist Sig nature PT 16.5 (H) 11.5 - 13.9 [facility] CANCER second(s) CENTER INR 1.44 (H) 0.90 - 1.10 [facility] Specimen Blood Performing Organization Address City/[facility]/ZIP Code Phon e Number [facility] CANC[facility] Unless otherwise noted, [address] all lab tests performed by: Division of Pathology and Laboratory Medicine [address] Osmolality Urine (08/15/2020 8:40 AM CDT) U Osmolality 354 50 - 1,400 [facility] Comment: mOsm/kg H2O [facility] Urinary osmolality may vary widely, depending on the state of hydration. Random urine osmolality can range from 50 to 1400 mOsm/kg H2O depending on fluid intake. In individuals on average fluid intake, urine osmolality is typically 300-900 mOsm/kg H2O. Units of measure: mOsm per Kg of water. Specimen Urine Performing Organization Address [facility] Number [facility] Unless otherwise noted, [address] all lab tests performed by: Division of Pathology and Laboratory Medicine [address] Sodium Level, Urine (08/14/2020 3:05 AM CDT)Only the most recent of2 results within the time period is included. Pathologist Sig nature U Sodium <20Comment: Normal mEq/L [facility] range not available for CANCER CENTER collections less than 24 hours in duration. Specimen Urine Performing Organization Address [facility] Phon e Number [facility] Unless otherwise noted, [address] all lab tests performed by: Division of Pathology and Laboratory Medicine [address] Hematocrit (08/12/2020 9:17 AM CDT)Only the most recent of6 resultswithin the time period is included. Pathologist Sig nature Hct 28.7 (L) 37.0 - 47.0 % [facility] CENTE R Specimen Blood Performing Organization Address City/[facility] Phon e Number [facility] Unless otherwise noted, [address] all lab tests performed by: Division of Pathology and Laboratory Medicine [address] Osmolality (08/12/2020 9:17 AM CDT) Pathologist Sig nature Osmolality 273 (L)Comment: 275 - 300 [facility] Units in mOsm mOsm/kg H2O CAN[facility]ER CENTER per kg of water. Specimen Blood Performing Organization Address [facility] Phon e Number [facility] Unless otherwise noted, [address] all lab tests performed by: Division of Pathology and Laboratory Medicine [address] Complete Blood Count w/o Differential (08/12/2020 12:58 AM CDT) WBC 14.2 (H) 4.0 - 11.0 [facility] K/uL [facility] RBC 3.29 (L) 4.00 - 5.50 [facility] M/uL [facility] Hgb 9.6 (L) 12.0 - 16.0 [facility] gm/dL [facility] Hct 29.9 (L) 37.0 - 47.0 % [facility] MCV 91 82 - 98 fL [facility] MCH 29.2 27.0 - 31.0 pg [facility] MCHC 32.1 31.0 - 36.0 [facility] gm/dL [facility] RDW-SD 61.3 (H) 35.1 - 46.3 fL [facility] RDW-CV 18.6 (H) 12.0 - 15.5 % [facility] Platelet count 494 (H) 140 - 440 K/uL [facility] MPV 9.7 4.0 - 10.4 fL [facility] INRBC 0.0 <=0.0 % [facility] Comment: CANCER CENTER The INRBC (instrument NRBC) value reflects the enumera tion of nucleated red blood cells contained in a 200uL samp le of whole blood analyzed by the instrument. This value may differ from the NRBC value reported in a manual differ ential, which is based on a 100 cell differential. Specimen Blood Performing Organization Address [facility] Phon e Number [facility] CANCER Unless otherwise noted, [address] all lab tests performed by: Division of Pathology and Laboratory Medicine [facility] [address] EKG, 12-Lead (08/12/2020)Only the most recent of3 resultswithin the time period is included. Specimen Narrative Performed At This result has an attachment that is no t available. Performing Organization Address City/[facility] Phon e Number [id number] X-ray Chest 1 View Portable (08/11/2020 11:00 PM CDT) Specimen Impressions Performed At A moderate to large size left pleural effusion has dev eloped in the [id number] interval from the previous study. There is a small rig ht pleural effusion. Opacities in the lower lungs may be due to a telectasis and/or pneumonia. . Narrative Performed At FULL RESULT: [id number] Examination: XR CHEST 1 VW PORTABLE, 08/11 11:00 PM Clinical History: Adenocarcinoma of rect um Indication: Confirm PICC placement. Adenocarcinoma the rectum. Metastatic disease to liver. Comparison: 07/19/2020 Technique: Single portable anteroposteri or radiograph of the chest. Findings: A moderate to large size left pleural effusion has dev eloped in the interval from the previous study. There is a small rig ht pleural effusion. Opacities in the lower lungs may be due to a telectasis and/or pneumonia. No signs of cavitation. No distinct pulmonary nodules. Degenerative changes of the spine. Sternotomy wires. T he aorta is tortuous. The right-sided central line terminates over the region of the right atrium. Catheters are present over the upper abdomen, incompletely imaged. Procedure Note Interface, Radiology Results In - 2020 8:23 AM CDT FULL RESULT: Examination: XR CHEST 1 VW PORTABLE, 08/11 11:00 PM Clinical History: Adenocarcinoma of rect um Indication: Confirm PICC placement. Alber ocarcinoma the rectum. Metastatic disease to liver. Comparison: 07/19/2020 Technique: Single portable anteroposteri or radiograph of the chest. Findings: A moderate to large size left pleural ef fusion has developed in the interval from the previous study. There is a small right pleural effusion. Opacities in the lower lungs may be due to atelectasis and/or pneumonia. No signs of cavitation. No distinct pulm onary nodules. Degenerative changes of the spine. Jaramillo otomy wires. The aorta is tortuous. The right-sided central line terminates over the region of the right atrium. Catheters are present over the upper abdomen, incompletely imaged. IMPRESSION: A moderate to large size left pleural ef fusion has developed in the interval from the previous study. There is a small right pleural effusion. Opacities in the lower lungs may be due to atelectasis and/or pneumonia. . Performing Organization Address [facility]/State/ZIP Code Phon e Number [id number] Influenza A/B + COVID-19 Asymptomatic- L (08/11/2020 6:17 PM CDT)Only the most recent of2 resultswithin the time period is included. COVID19 Not Detected Not Detected [facility] (SARS-CoV-2) [facility] Influenza A Not Detected Not Detected [facility] Influenza B Not Detected Not Detected [facility] COVID19 SARS Inpatient Admission [facility] Indication [facility] Inf AB+Cov19 See Note [facility] Comment Comment: [facility] The zana SARS-CoV-2 & Influ toro A/B nucleic acid test for use on the zana Louise System is a multiplex real-time RT-PCR assay intended for the simultaneous, qualitative detection and differential of SARS-CoV-2 (COVID-19), influenza A, and influenza B viral RNA in nasopharyngeal swabs in transport media from patients suspected of having a respiratory infection with one of these viruses or possibly exposure to COVID-19 by a healthcare provider. Results must be interpreted within the context of all relevant clinical and labora tory findings and should not form the sole basis for a diagnosis or treatment decision. A fact sheet for patients provided by the mill worker ([employer] can be reviewed at: https://www.fda.gov/media/354412/download A fact sheet for Health Care providers is provided by the mill worker ([employer]) and can be reviewed at: https://www.fda.gov/media/283989/download Influenza A and Influenza B negative results should be considered presumptive in samples that have a positive SARS-CoV-2 result. If co-infection with influenza A or influenza B virus is suspected in matt ples with a positive SARS-CoV-2 results, the sample should be re-tested with another approved influenza te st. This assay has been authoriz ed by the FDA for use only under Emergency Use Authorization (EUA) in laboratories that have been CLIA-certified to perform moderate-complexity and high-complexity tests. The Microbiology Laboratory at [facility], CLIA Accreditation # [id number] and CAP Accreditation #[id number], verified the performance characteristics of this assay. Internal controls are used to monitor all stages of the test process. Specimen Nasopharyngeal Swab Performing Organization Address City/State/ZIP Code Phon e Number [facility] CANCER Unless otherwise noted, [place] [address] CENTER all lab tests performed by: Division of Pathology and Laboratory Medicine [address] LDH (07/20/2020 12:13 PM CDT)Only the most recent of6 resultswithin the time period is included. Pathologist Sig nature LDH 362 (H) 135 - 214 U/L [facility] Comment: Results greater than 1651 U/ L may not be reliable due to matrix effect with extended dilution as it exceeds the mill worker s recommended limit. Caution should be exercised when interpreting such juarez ues and done in conjunction with clinical context. Testing performed at [facility], [address] [place] [address] Specimen Blood Performing Organization Address City/[facility]/[place]IP [place] [address] [place] [address] Exchange (07/19/2020 9:57 AM CDT) Specimen Narrative Performed At This procedure requires no interpretation from the rad iologist. XR Chest 1 View Post Implant (07/19/2020 9:57 AM CDT) Specimen Impressions Performed At Right central catheter with its distal tip over the at riocaval [id number] junction and without evident pneumothora x. Narrative Performed At FULL RESULT: [id number] Examination: XR CHEST 1 VW POST IMPLANT, 07/19/2020 9:57 AM Clinical History: Adenocarcinoma of saleh sverse colon Indication: Check Central Line placement Comparison: June 09, 2020 Technique: Single portable anteroposteri or radiograph of the chest. Findings: Right central catheter with its distal tip over the at riocaval junction. There is no pleural effusion or pneumothorax . Tortuosity of the aorta. Cardiac silhouette is normal. Partially silvio ged catheter in the upper abdomen. Procedure Note Interface, Radiology Results In - 2020 10:12 AM CDT FULL RESULT: Examination: XR CHEST 1 VW POST IMPLANT, 07/19/2020 9:57 AM Clinical History: Adenocarcinoma of saleh sverse colon Indication: Check Central Line placement Comparison: June 09, 2020 Technique: Single portable anteroposteri or radiograph of the chest. Findings: Right central catheter with its distal t ip over the atriocaval junction. There is no pleural effusion or pneumothorax. Tortuosity of the aorta. Cardiac silhouette is normal. Partially imaged catheter in the upper abdomen. IMPRESSION: Right central catheter with its distal t ip over the atriocaval junction and without evident pneumothorax. Performing Organization Address City/State/ZIP Code Phon e Number [id number] INTRAOPERATIVE US (07/19/2020 8:24 AM CDT) Specimen Narrative Performed At This procedure requires no interpretation from the rad iologist. General Laboratory Add-On Test (07/16/2020 3:25 PM CDT)Only the most recent of3 resultswithin the time period is included. Pathologist Sig nature Ordered Test Added [facility] Test Needed CMP [facility] Specimen Existing Performing Organization Address City/State/ZIP Code Phon e Number [facility] CANCER Unless otherwise noted, [place] [address] CENTER all lab tests performed by: Division of Pathology and Laboratory Medicine [address] MD COVID-19 (ERIC-CoV-2) PCR Asymptomatic (07/16/2020 2:11 PM CDT) COVID19 SARS Pre-Out of OR [facility] Indication Procedure [facility] COVID19 SARS Result Not Detected Not Detected [facility] COVID19 SARS SARS-CoV-2 NOT Detected. [facility] CANCER [place] Reference Range: Not Detected Methodology: The Wylie Real Time SARS-CoV-2 assay is a qualitative real-time reverse reset merchandiser polymerase chain reaction (anode builder-PCR) test to detect RNA from SARS-CoV-2 in nasal, nasopharyngeal and oropharyngeal swabs from patients with signs and symptoms of infection who ar e suspected of COVID-19 by their health care provider. The Wylie RealTime SARS-CoV-2 performed on the [employer]-Magic m2000 System is a dual target assay with primers and probes for the RdRp and N genes. Results must be interpreted within the context of all relevant clinical and laboratory findings, and epidemiological risk factors. Positive results are indicative of the presence of SARS-CoV-2 RNA; clinical correlation with patient history and other diagnostic information is ne cessary to determine patient infection status. Positive results do not rule out bacterial infection or co-infection with other viruses. Negative results do not preclude SARS- CoV-2 infection and should not be used as the sole basis for patient management decisions. The Wylie RealTime SARS-CoV -2 assay is for in vitro diagnostic use under FDA Emergency Use Authorization only. Testing is limited to laboratories certified under the Clinical Laboratory Improvement Luciana ndments of 1988 (CLIA), 42U.S.C. 263a, to perform high complexity tests. The T est was performed by the CLIA-certified, high- complexity Molecular Diagnostics Laboratory (MDL) at [facility] under the Food and Drug Administration (FDA) s Emergency Use Authorization. Factsheet for patients: https://www.[facility] [place]erson.org/Abb ottFactSheetPatients Factsheet for healthcare pro viders: https://www.mdanderson.org/AbbottFactSheetHCP Test performed by: [facility] [address] [place] [address] Specimen Nasopharyngeal Swab Performing Organization Address [facility] Phon e Number [facility] CANCER Unless otherwise noted, [address] all lab tests performed by: Division of Pathology and Laboratory Medicine [facility] Folate, RBC (07/16/2020 1:59 PM CDT) Pathologist Sig lexie Folate, RBC 839 >280 ng/mL RBC [facility] Comment: Lab test performed by: Lab Mnemonic: [facility] [address] [id number] GONZALEZ WALTER MD Specimen Blood Narrative Performed At Please add to existing lab appt [facility] Performing Organization Address City/[facility] Phon e Number [facility] Reticulocyte Count, Auto (07/16/2020 1:59 PM CDT) Pathologist Sig nature Retic Cnt Auto 3.3 (H) 0.5 - 1.5 % [facility] RETHE 28.8 23.2 - 37.5 pg [facility] IRF 21.1 (H) 2.6 - 16.7 % [facility] Specimen Blood Narrative Performed At Please add to existing lab appt [facility] Performing Organization Address [facility]/ZIP [facility] Phon e Number [facility] [address] [facility] [place] [address] [address] Transferrin with TIBC (07/16/2020 1:59 PM CDT) Pathologist Sig nature Transferrin 170 (L) 200 - 360 mg/dL [facility] TIBC 238 (L) 250 - 450 mcg/dL [facility] Specimen Blood Narrative Performed At Please add to existing lab appt [facility] Performing Organization Address City/[facility]/ZIP Code Phon e Number [facility] CANCER Unless otherwise noted, [address] all lab tests performed by: Division of Pathology and Laboratory Medicine [address] Iron Level (07/16/2020 1:59 PM CDT) Pathologist Sig nature Iron 18 (L) 37 - 145 mcg/dL [facility] Specimen Blood Narrative Performed At Please add to existing lab appt [facility] Performing Organization Address City/[facility] Phon e Number [facility] Unless otherwise noted, [address] all lab tests performed by: Division of Pathology and Laboratory Medicine [address] Hemoglobin A1c (07/16/2020 1:59 PM CDT) Pathologist Sig nature A1C 4.3 4.3 - 5.6 % [facility] Comment: CANCER CENTER HbA1c values >=6.5% are diagnostic of diabetes mellitu s. Diagnosis should be confirmed by repeat testing. Therapeutic Action suggested: >8.0% HbA1c; Goal of therapy: <7.0% HbA1c Specimen Blood Performing Organization Address City/[facility] Phon e Number [facility] Unless otherwise noted, [address] all lab tests performed by: Division of Pathology and Laboratory Medicine [address] Ferritin Level (07/16/2020 1:59 PM CDT) Pathologist Sig nature Ferritin Lvl 107 13 - 150 ng/mL [facility] Specimen Blood Narrative Performed At Please add to existing lab appt [facility] Performing Organization Address City/[facility]/ZIP Code Phon e Number [facility] CANCER Unless otherwise noted, [address] all lab tests performed by: Division of Pathology and Laboratory Medicine [address] Vitamin B12 Level (07/16/2020 1:59 PM CDT) Pathologist Sig nature Vitamin B12 Lvl 805 211 - 946 pg/mL [facility] Specimen Blood Narrative Performed At Please add to existing lab appt [facility]ENTER Performing Organization Address City/State/ZIP Code Phon e Number [facility] CANCER Unless otherwise noted, [place] [address] CENTER all lab tests performed by: Division of Pathology and Laboratory Medicine Rojas Lopez MD Microsatellite Instability (MSI) Analysis Interpretation and Report (07/14/2020 3:12 PM CDT)Only the most recent of2 resultswithin the time period is included. Specimen Narrative Performed At This result has an attachment that is no t available. HP MD PRADO LAWRENCE: Mutation Analysis Precision Panel Report (07/14/2020 2:56 PM CDT) Specimen Narrative Performed At This result has an attachment that is no t available. Solid Tumor Genomic Assay Fusions 2018 Interpretation and Report (07/14/2020 2:56 PM CDT) Specimen Narrative Performed At This result has an attachment that is no t available. NTRK3 Fusion Analysis with Interpretation and Report (06/09/2020 6:19 PM CDT) Pathologist Sig nature Archived Material Previously diagnosed [facility] tissues from [place] [address] were selected for molecular analysis. Results will be reported separately. Specimen Tissue Performing Organization Address City/[facility]/[place] [address] Rojas Lopez MD NTRK2 Fusion Analysis with Interpretation and Report (06/09/2020 6:19 PM CDT) Pathologist Sig nature Archived Material Previously diagnosed [facility] tissues from [id number] were selected for molecular analysis. Results will be reported separately. Specimen Tissue Performing Organization Address City/[facility]/[place] [address] [address] MD NTRK1 Fusion Analysis with Interpretation and Report (06/09/2020 6:19 PM CDT) Pathologist Sig nature Archived Material Previously diagnosed [facility] tissues from [place] [address] were selected for molecular analysis. Results will be reported separately. Specimen Tissue Performing Organization Address City/State/[place] [address] Rojas Lopez MD MSI by PCR with interpretation and report (06/09/2020 6:19 PM CDT)Only the most recent of3 resultswithin the time period is included. Pathologist Sig nature Archived Material Previously diagnosed [facility] tissues from [place] [address] were selected for molecular analysis. Results will be reported separately. Specimen Tissue Performing Organization Address City/[facility]/[place] [address] Rojas Lopez MD [id number] Mutation Analysis Interpretation and Report (06/09/2020 6:19 PM CDT) Pathologist Sig nature Archived Material Previously diagnosed [facility] tissues from [place] [address] were selected for molecular analysis. Results will be reported separately. Specimen Tissue Performing Organization Address [facility] [place] [address] [address] MD NRAS Mutation Interpretation and Report (06/09/2020 6:19 PM CDT) Pathologist Sig nature Archived Material Previously diagnosed [facility] tissues from [place] [address] were selected for molecular analysis. Results will be reported separately. Specimen Tissue Performing Organization Address City/[facility] [place] [address] [address] MD KRAS Interpretation and Report (06/09/2020 6:19 PM CDT) Pathologist Sig nature Archived Material Previously diagnosed [facility] tissues from [place] [address] were selected for molecular analysis. Results will be reported separately. Specimen Tissue Performing Organization Address [facility] [place] [address] [address] MD BRAF Mutation Interpretation and Report (06/09/2020 6:19 PM CDT) Pathologist Sig nature Archived Material Previously diagnosed [facility] tissues from [place] [address] were selected for molecular analysis. Results will be reported separately. Specimen Tissue Performing Organization Address City/[facility] [place] [address] [address] IHC MSI (MLH1, MSH2, MSH6, PMS2) Interpretation and Report (06/09/2020 6:19 PM CDT)Only the most recent of3 resultswithin the time period is included. Specimen Tissue Performing Organization Address City/State/[place] [address] [address] IHC HER2/suellen Interpretation and Report (06/09/2020 6:19 PM CDT) Specimen Tissue Performing Organization Address City/State/[place] [address] [address] Liquid Biopsy Panel V1 Final Report (06/09/2020 1:25 PM CDT) Specimen Narrative Performed At This result has an attachment that is no t available. LB KRAS Mutation Analysis with Interpretation and Report - Liquid Biopsy genotyping when no tumor tissue is available (06/09/2020 1:25 PM CDT) Pathologist [facility] Yes [facility] (Received) [place] Specimen Blood Performing Organization Address City/[facility]/ZIP Code Phon e Number [facility] CANCER Unless otherwise noted, [address] all lab tests performed by: Division of Pathology and Laboratory Medicine [address] LB APC Mutation Analysis with Interpretation and Report - Liquid Biopsy genotyping when no turmor tissue is available (06/09/2020 1:25 PM CDT) Pathologist [facility] Yes [facility] (Received) [place] Specimen Blood Performing Organization Address City/[facility]/ZIP Code Phon e Number [facility] CANCER Unless otherwise noted, [address] all lab tests performed by: Division of Pathology and Laboratory Medicine [address] LB BRAF Mutation Analysis with Interpretation and Report - Liquid Biopsy genotyping when no tumor tissue is available (06/09/2020 1:25 PM CDT) Pathologist [facility] Yes [facility] (Received) [place] Specimen Blood Performing Organization Address City/State/ZIP Code Phon e Number [facility] CANCER Unless otherwise noted, [address] all lab tests performed by: Division of Pathology and Laboratory Medicine [address] X-ray Chest 2 Views (06/09/2020 12:24 PM CDT) Specimen Impressions Performed At FINDINGS and IMPRESSION: [id number] 1. Right PICC tip cavoatrial junction. 2. Heart not enlarged with moderate tortuosity desce nding thoracic aorta. 3. No pneumothorax or pleural effusion . 4. Tubing overlying upper abdomen part ially visualized. 5. No suspicious osseous findings. Narrative Performed At FULL RESULT: [id number] Examination: XR CHEST 2 VW, 06/09/2020 12: 24 PM Clinical History: Rectal cancer Indication: Confirm PICC placement Comparison: 05/11/2020 Technique: Posteroanterior, lateral and dual-energy ra diographs of the chest. Procedure Note Interface, Radiology Results In - 2020 12:46 PM CDT FULL RESULT: Examination: XR CHEST 2 VW, 06/09/2020 12: 24 PM Clinical History: Rectal cancer Indication: Confirm PICC placement Comparison: 05/11/2020 Technique: Posteroanterior, lateral and dual-energy radiographs of the chest. IMPRESSION: FINDINGS and IMPRESSION: 1. Right PICC tip cavoatrial junction. 2. Heart not enlarged with moderate tor tuosity descending thoracic aorta. 3. No pneumothorax or pleural effusion. 4. Tubing overlying upper abdomen parti ally visualized. 5. No suspicious osseous findings. Performing Organization Address City/[facility] Phon e Number [id number] Prealbumin (06/02/2020 11:02 AM CDT) Prealbumin-M 4 (L) 19 - 38 mg/dL [facility] Comment: [facility] Test Performed by: [address] [address] Hockey Scout: Dilan Martinez M.D. Ph.D.; CLIA# [id number] Specimen Blood Performing Organization Address City/State/[facility] Phon e Number [facility] CANCER Unless otherwise noted, [place] [address] CENTER all lab tests performed by: Division of Pathology and Laboratory Medicine [address] CRP (06/02/2020 11:02 AM CDT) Pathologist Sig lexie CRP 58.44 mg/L [facility] Comment: [facility] Reference ranges for HS CRP assay are as follows: Reference ranges when used to assess cardiac risk: <1.00 mg/L Low cardiovascular risk 1.00-3.00 mg/L Average cardiovascular risk >3.00 mg/L High cardiovascular risk. Reference ranges when used to assess inflammatory resp onses: Less than or equal to 10.00 mg/L. Specimen Blood Narrative Performed At At 1pm [facility]ER CENTER Performing Organization Address City/State/ZIP Code Phon e Number [facility] CANCER Unless otherwise noted, [place] [address] CENTER all lab tests performed by: Division of Pathology and Laboratory Medicine [address] IR Conversion of External to Internal-External Biliary Drain (06/01/2020 10:04 AM CDT) Specimen Narrative Performed At This result has an attachment that is no t available. 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 Operative Findings: Percutaneous image-guided exchange of left external bi liary drainage catheter and conversion to internal external biliary d rain Consent: The procedure, risks, indications and alter natives were explained. All questions were answered and informed co nsent was obtained. I have reviewed the history and physical dictated by bri bell mid-level practitioner / fellow. Sedation/Anesthesia: Anesthesia provided by Anesthesia Department. Procedure in Detail: A time out was performed prior to the start of the pro cedure and the correct patient, procedure, presence of consent, site, and side were confirmed with all members of the team. The patient was placed in a supine position on the flu oroscopy table and the upper abdomen and catheter were prepped and draped in the usual sterile fashion. Lidocaine 1% was used for local anest hesia. A structural mill supervisor view was obtained of the abdomen and catheter. A cholangi ogram was performed through the catheter(s). The existing 10 [place]raini left external biliary catheter was cut and was exchanged over a wire for a new 10 [place]raini extended edward e-hole biliary catheter which was formed in the duodenum. The cathete r was secured to the skin with suture. Additional Comments: High grade stenosis was crossed using a microcatheter system. Estimated Blood Loss: Minimal Specimens Removed: No Immediate Complications: None Disposition: PACU Plan: Catheter to gravity drainage until bilirubin levels normalize or trend down adequately. Then cap for internal drainage. Return for routine exchange in 2 months I certify my physical presence at the time of the proc edure. I personally reviewed the image(s) and the resident's / fellow's in terpretation and agree with the written report. POC Chem 8 (06/01/2020 8:55 AM CDT) POC NA 138 138 - 146 POC [facility] mEq/L POC K 3.6 3.5 - 4.9 POC [facility] Comment: mEq/L Method description: The i-ST AT is an analyzer used for in vitro quantification of various analytes in whole blood. The device uses a single disposable cartridge which contains microfabricated sensors, a calibration solution, fluidics system, and a waste chamber. Each test cartridge contains chemically sensitive biosensors on a silicon chip that are configured to perform specific tests. The microfabricated sensors measure analyte concentration by an electrochemical assay. POC CL 99 98 - 109 POC [facility] mEq/L POC VTCO2 30 (H) 24 - 29 mEq/L POC [facility] POC BUN 10 8 - 26 mg/dL POC [facility] POC Crea 0.5 (L) 0.6 - 1.3 POC [facility] Comment: mg/dL Medications, especially hydr oxyurea or supplements, such as ascorbate, can interfere with test results causing a falsely and significantly higher result than expected. If a problem is suspected with a patient's result, a sample should be sent to the laboratory for confirmatory testing. Method description: The i-ST AT is an analyzer used for in vitro quantification of various analytes in whole blood. The device uses a single disposable cartridge which contains microfabricated sensors, a calibration solution, fluidics system, and a waste chamber. Each test cartridge contains chemically sensitive biosensors on a silicon chip that are configured to perform specific tests. The microfabricated sensors measure analyte concentration by an electrochemical assay. POC eGFR-AA 110 >=60 POC [facility] Comment: mL/min/1.73 Normal eGFR >= 60 mL/min/1.73 m2 m2 The eGFR is calculated using the CKD-EPI equation. The eGFR declines with age. eGFR <60 mL/min/1.73 m2 is considered as "decreased" This equation should only be used for patients 18 and older. According to the National [facility]'s Kidney Disease Outcome Quality Initiative (KDOQI) classification and 2012 Kidney Disease Improving Global Outcomes (KDIGO) Clinical Practice Guideline, the stage of CKD should be categorized based on estimated GFR. Stage Description GFR mL/min/1.73 m2 1 Kidney damage with normal or high GFR >=90 2 Kidney damage with mild decrease in GFR 60-89 3a Mild to moderate decrease in GFR 45-59 3b Moderate to severe decrease in GFR 30-44 4 Severe decrease in GFR 15-29 5 Kidney failure <15 (or dialysis) POC eGFR-ERIC 95 >=60 POC [facility] Comment: mL/min/1.73 Normal eGFR >= 60 mL/min/1.73 m2 m2 The eGFR is calculated using the CKD-EPI equation. The eGFR declines with age. eGFR <60 mL/min/1.73 m2 is considered as "decreased" This equation should only be used for patients 18 and older. According to the National [facility]'s Kidney Disease Outcome Quality Initiative (KDOQI) classification and 2012 Kidney Disease Improving Global Outcomes (KDIGO) Clinical Practice Guideline, the stage of CKD should be categorized based on estimated GFR. Stage Description GFR mL/min/1.73 m2 1 Kidney damage with normal or high GFR >=90 2 Kidney damage with mild decrease in GFR 60-89 3a Mild to moderate decrease in GFR 45-59 3b Moderate to severe decrease in GFR 30-44 4 Severe decrease in GFR 15-29 5 Kidney failure <15 (or dialysis) POC Glucose 85 70 - 99 mg/dL POC [facility] POC Ion Ca 1.13 1.12 - 1.32 POC [facility] mmol/L POC Hct 27.0 (L) 38.0 - 51.0 % POC [facility] POC Hgb 9.2 (L) 12.0 - 17.0 POC [facility] Comment: gm/dL Hematocrit values from the i STAT are determined conductometrically, which may be affected by WBC count, levels of total protein, lipids, or sodium. The hemoglobin result is calculated based on the corre sponding measured hematocrit and assumes a normal MCHC. If there is a discrepa ncy between the results from iSTAT and conventional laboratory method, the result from conventional method should be considered the accurate standard. POC Sample Type Venous POC [facility] POC Clean Dev Yes POC [facility], [address] [place] [address], [place] [address]; Hockey Scout: Stephanie Escamilla MD Specimen Blood Performing Organization Address City/State/ZIP Code Phon e Number POC [facility] Partial Thromboplastin Time (05/29/2020 6:12 AM CDT)Only the most recent of5 resultswithin the time period is included. Pathologist Sig nature PTT 33.4 24.7 - 36.8 second(s) [facility] Specimen Blood Performing Organization Address City/[facility] Phon e Number [facility] Unless otherwise noted, [address] all lab tests performed by: Division of Pathology and Laboratory Medicine [address] Free T3 (05/27/2020 12:44 AM CDT) Pathologist Sig nature Free T3 1.4 (L) 2.0 - 4.4 pg/mL [facility] [address] Specimen Blood Performing Organization Address [facility] Phon e Number [facility] Unless otherwise noted, [address] all lab tests performed by: Division of Pathology and Laboratory Medicine [address] TSH (05/27/2020 12:44 AM CDT) Pathologist Sig nature TSH 0.67 0.27 - 4.20 mcunit/mL [facility] Specimen Blood Performing Organization Address [facility] Phon e Number [facility] CAN[facility]ER Unless otherwise noted, [address] all lab tests performed by: Division of Pathology and Laboratory Medicine [address] Free T4 (05/27/2020 12:44 AM CDT) Pathologist Sig nature T4 Free 1.16 0.93 - 1.70 ng/dL [facility] C ENTER Specimen Blood Performing Organization Address [facility] Phon e Number [facility] CANCER Unless otherwise noted, [address] all lab tests performed by: Division of Pathology and Laboratory Medicine [address] IR PLACEMENT BILIARY DRAINAGE CATHETER (EXTERNAL) (05/26/2020 7:45 PM CDT) Specimen Narrative Performed At This result has an attachment that is no t available. Date of Procedure: 05/26/20 Attending Physician: Dr. De Leon Census Clerk: Jacobo Andrade Pre Procedure Diagnosis: Metastasis to liver from ad enocarcinoma [[id number]] Post Procedure Diagnosis: Unchanged Indication: Biliary obstruction from tumor Title of Procedure: Percutaneous Image-Guided Placement of Biliary Drainag e Catheter(s). Operative Findings: Percutaneous image-guided placement of left external b iliary drainage catheter(s). Consent: The procedure, risks, indications and alter natives were explained. All questions were answered and informed co nsent was obtained. I have reviewed the history and physical dictated by bri bell mid-level practitioner / fellow. Sedation/Anesthesia: Anesthesia provided by Anesthes ia Department. Procedure in Detail: A time out was performed prior to the start of the pro cedure and the correct patient, procedure, presence of consent, site, and side were confirmed with all members of the team. The patient was placed in a supine position on the flu oroscopy table and the upper abdomen and right flank were prepped and jamar ped in the usual sterile fashion. Lidocaine 1% was used for local anest hesia. Under real time ultrasound guidance, a 22 gauge needle was advanced into an appropriate peripheral biliary radical, confirmed b y contrast administration. An image was obtained and placed into the patient's image file. A cholangiogram was performed and an 0.018 inch wire was advanced into the biliary system. A Kateryna set was used to scale up the access and a 0.035 inch wire was negotiated into the left biliary system and the biliar y obstruction was not attempted to be crossed. The tract was dilated t o accept a 8 [place] Ramírez Arroyo catheter which was formed in a peripher al left hepatic bile duct. The catheter was secured to the skin with suture . Additional Comments: Small amount of purulent materi al was obtained after obtaining access. This was submitted for microbiology. Estimated Blood Loss: Minimal Specimens Removed: Yes - Sample sent to Microbiology . Immediate Complications: None Disposition: PACU Plan: Catheter to gravity drainage until further notice. We will attempt conversion to internal/external catheter next week. Please refer to separate endoscopy report for endos copic procedure. I certify my physical presence at the time of the proc edure. I personally reviewed the image(s) and the resident's / fellow's in terpretation and agree with the written report. Anaerobic Culture Interventional Radiology (05/26/2020 6:48 PM CDT) Final Report No growth [facility] [place] Path Review - Culture yield may be affecte d by sample quality, prior treatment, and transportation conditions. [facility] Anaerobe ... [facility] The results have been reviewed and electronically sign ed by Pathologist: Christopher Cassidy MD, PhD #[id number] Specimen Body Fl - Biliary Narrative Performed At Biliary drain [facility] Performing Organization Address City/[facility] Code Phon e Number [facility] Unless otherwise noted, [address] all lab tests performed by: Division of Pathology and Laboratory Medicine [address] Fungus Culture IR w/Smear (05/26/2020 6:48 PM CDT) Final Report No fungus isolated at [facility] 4 weeks. [facility] Path Review - Culture yield may be affecte d by sample quality, prior treatment, and transportation conditions. The results have been reviewed and electronically signed by Pathologist: [facility] STEPHANIE Fungus Rad Sepulveda MD, PhD #[id number] [facility] ER Calcofluor Stain No Fungi seen in direct smear [place] MD Galeana NDERSON Test performed by fluorescent stain methodology. [facility] Specimen Body Fl - Biliary Narrative Performed At Biliary drain [facility] Cultures are held for 4 weeks before finalization. Performing Organization Address City/[facility] Code Phon e Number [facility] CANCER Unless otherwise noted, [address] all lab tests performed by: Division of Pathology and Laboratory Medicine [address] Interventional Radiology Culture w/Gram Stain (05/26/2020 6:48 PM CDT) Final Report No growth [facility] Path Review The results have been review ed and electronically signed by Pathologist: [place] MD STEPHANIE Sepulveda MD, PhD #[id number] [facility] Gram Stain Report Few WBC's seen [facility] No organisms seen. [facility] Specimen Body Fl - Biliary Narrative Performed At Biliary drain [facility] Performing Organization Address City/[facility] Code Phon e Number [facility] Unless otherwise noted, [address] all lab tests performed by: Division of Pathology and Laboratory Medicine [address] AFB Culture IR w/Smr (05/26/2020 6:48 PM CDT) Final Report No acid fast bacteria [facility] isolated at 8 weeks. [facility] Path Review - AFB Partial antibiotic treatment can render AFB culture negative. AFB culture has sensitivity of 90%. [facility] The results have been reviewed and electronicall y signed by Pathologist: [facility] RONI GRAHAM MD #[id number] Acid Fast Stain No Acid Fast Bacilli [facility] Truant seen in direct smear [facility] Specimen Body Fl - Biliary Narrative Performed At Biliary drain [facility] Performing Organization Address City/State/ZIP Code Phon e Number [facility] Unless otherwise noted, [place] [address] CENTER all lab tests performed by: Division of Pathology and Laboratory Medicine [facility] ENDOSCOPY NOTE RESULTS (05/26/2020 6:42 PM CDT) Procedure Note Phil Soares MD - 05/26/2020 6:42 PM CDT Patient Name: Krista Chakraborty Gender: Female Age: 74 Procedure Date No Time: 05/26/2020 Instrument Name: [id number] TJF -Q180V Proceduralist(s): PHIL SOARES MD, SURENDRA OLIVARES MD (Fellow) Procedure Name: ERCP Scope In: 6:55:29 PM Scope Out: 7:27:57 PM Total Procedure Duration Time 0 hours 32 minutes 28 seconds Patient Profile: This is a 74 y ear old female with metastatic colon cancer to the liver with bile duct obstruction who presents for s tent revision. His last ERCP on 05/12/2020 tanna wed CHD and RHD stricture with plastic stent placement on the RHD. Partial stent migration is s uspected. GIven increasing liver tests patient is also referred for percutaneous biliary draina ge of left liver in interventional radiology room Indications: Persistent jau ndice, bile duct obstruction, metastatic col orectal cancer, recent ERCP 05/12/2020 wit h right sided stent placement, increased live r tests, partial migration of previous stent suspected, left sided percutaneous biliary drain planned in IR (performed in IR). Also abnormal imagi ng / outside endoscopy esophagus. Medications: General Anesth esia, on antibiotics Procedure Description: Pre-Anesthesia Assessment:Prior to the procedure, a History and Ph ysical was performed, and patient medications an d allergies were reviewed. The patient's tole lita of previous anesthesia was also reviewed. The risks and benefits of the procedure and the sedati on options and risks were discussed with the patie nt. All questions were answered, and informed conse nt was obtained. Prior Anticoagulants : The patient has taken no anticoagulant or antiplatelet agents. ASA Grade Assessment: II I - A patient with severe systemic disease. After reviewing the risks and benefits, the patient wa s deemed in satisfactory condition to undergo the pr ocedure. Informed consent was obtained. Thro ughout the procedure, the patient's blood pressure , pulse, and oxygen saturations were monitored cont inuously. Patient was on supine position. The Olympus GIF-HQ190 ([id number]) upper endoscope - (9 .9 mm dm) was introduced through the mouth, and adv anced to the second duodenum. Careful inspection was performed on withdrawal. Then the Olympus TJF-Q1 80V ([id number]) sideviewing duodenoscope w as introduced and ERCP was performed with findngisreal a s below. The ERCP was accomplished without diffic ulty. The patient tolerated the procedure well . Findings: The standard e sophagogastroduodenoscopy scope was used for the e xamination of the upper gastrointestin al tract. A small, subepithelial nodule measuri ng ~1 to 1.5 cm with normal, smooth overlying muco sa was seen at ~31cm. The nodule was soft and compr essible with benign apperance / possible cysti c although EUS was not performed. The remainder of t he esophagus appeared unremarkable. The squamocolu mnar line was at the esophagogastric junction 42 cm from the incisors. The stomach di stended well with air insufflation. The mucosa of the gastric body and antrum appeared unremarkable. The examined d uodenum appeared unremarkable. The distal end of the previously placed right sided double pitail stent was seen emanating from the ampulla The right side d plastic biliary stent and new left sided PTC drai n was visible on the structural mill supervisor film. The plastic st ent was removed from the biliary tree using a snare. The ampulla wa s evident for prior biliary sphincterotomy . The sphincterotomy appeared open. Cannulation of the common bile duct was readily achieved using a balloon cathete rand a 0.035 inch angled Glidewi re which was passed into the right biliary tree. Multiple balloon sweeps were performed with the 8.5 and 11.5 mm balloon with extraction of small sludge. Contrast was injected. I personally i nterpreted the bile duct images. Ductal flow of contrast was adequate. Image quality was adequate. The common hepatic duct and right main hepatic d uct contained irregular stenoses. The injected intra hepatics were minimally dilated. No contrast was i njected on the Left hepatic system. The common yandel t was dilated. One [employer] 10 Fr by 7 cm double pigtail plastic stent was placed into th e right system. Bile flowed through the stent. The stent was in good position. Complications: No immediate c omplications. Estimated Blood Loss: Estimated bloo d loss was minimal. Post Procedure Diagnosis: - Approximate ~1-1.5cm non-obstructing subepthilial nodule with ov erlying normal mucosa and soft, compressible, benign features / likely cystic process althou gh EUS not performed - Unremarkable stomach - Unremarkable examined duodenum - Previously p laced right sided double pitail stent emanating from the ampulla - removed - Ampulla with evidence of prior biliary sphincterotomy - Irregular st ricture involving CHD and RHD as before - Placement ne w 10Fr x 7cm double pigtail stent into right sys tem Recommendation: - The patient will be observed post-procedure, until all disc harge criteria are met. - [facility]ie [facility] care. - Clear liquid diet today. - Advance diet as tolerated. - Continue pre sent medications. - Levaquin (le vofloxacin) 500 mg PO daily for 3 days. - Repeat ERCP in 3 months to exchange stent. - Right sided percutaneous external biliary drain in situ Attending Participation: I personally p erformed the entire procedure. PHIL SOARES MD 05/27/2020 8:42:49 AM This report has been signed electronical ly. Number of Addenda: 0 Occult Blood Stool (05/25/2020 9:08 PM CDT) Fecal Occult Bld Positive (A)Comment: Negative [place] MD [facility] Test performed by [facility] latex immunoassay methodology. Specimen Stool Performing Organization Address City/State/ZIP Code Phon e Number [place] MD [facility] Unless otherwise noted, [place] [address] [place] all lab tests performed by: Division of Pathology and Laboratory Medicine [address] MD NGS Blood Control (05/14/2020 5:25 AM CDT) Pathologist Sig nature Molecular Diagnostics Yes [place] MD [facility] ER (Received) CENTER Specimen Blood Performing Organization Address City/State/ZIP Code Phon e Number [facility] Unless otherwise noted, [place] [address] [place] all lab tests performed by: Division of Pathology and Laboratory Medicine [address] [facility] ENDOSCOPY NOTE RESULTS (05/12/2020 4:59 PM CDT) Procedure Note Roni Guerrero MD - 05/12/2020 4:59 P M CDT Patient Name: Krista Chakraborty Gender: Female Age: 74 Procedure Date No Time: 05/12/2020 Instrument Name: [id number]-[id number] Proceduralist(s): RONI GUERRERO MD, SURENDRA OLIVARES MD (Fellow) Procedure Name: ERCP Scope In: 5:38:14 PM Scope Out: 6:34:45 PM Total Procedure Duration Time 0 hours 56 minutes 31 seconds Patient Profile: This is a 74 y ear old female with a history of metastatic col on cancer, presenting with obstructive hy perbilirubinemia. Here today for ERCP Indications: Jaundice, Bile Duct Obstruction Medications: General Anesth esia, CO2, Indomethacin 100 mg MI, Levaquin 500 m g IV Procedure Description: Pre-Anesthesia Assessment: - Prior to the procedure, a History and Physical was performed, and patient medications and allergies were reviewed. The patient's tolerance of previous anest hesia was also reviewed. The risks and benefits o f the procedure and the sedation options and ri sks were discussed with the patient. All questions were answered, and informed consent was obtained. Prior Anticoagulants: The patient has taken no previ ous anticoagulant or antiplatelet agents. ASA Gr radha Assessment: III - A patient with severe systemi c disease. After reviewing the risks and benefits, the patient was deemed in satisfactory c ondition to undergo the procedure. Informed conse nt was obtained. Throughout the procedure, the patient's blood pressure, pulse, and oxygen saturat ions were monitored continuously. The Olympus TJF-Q1 80V ([id number]) sideviewing duodenoscope w as introduced through the mouth, and advanced to th e duodenum and used to inject contrast into the bile duct. The ERCP was accomplished w ithout difficulty. The patient tolerated the procedure well. Findings: The structural mill supervisor film was normal. The major papilla was normal. A 0.03 5 inch straight Glidewire was passed into the bilia ry tree. The short-nosed traction sphincterotome was passed over the guidewire and the bile duct was then deeply cannulated. Contrast was injected. I personally interpreted the bile duct images. D uctal flow of contrast was adequate. Image quality was adequate. The hepatic duct bifurcation an d right main hepatic duct contained localized sten oses. The left hepatic system was not accessed or co ntrasted. Biliary sphincterotomy was made with a mo nofilament traction (standard) sphincterotome using ERBE electrocautery. There was no post-sphinc terotomy bleeding. Dilation of the right main hep atic duct with a 6 mm by 40 mm balloon dilato r was successful. One 10 Fr by 7 cm double pigtail plastic stent was placed into the right hepatic duct. Bile flowed through the stent. The stent was in good position. Complications: No immediate c omplications. Estimated Blood Loss: Estimated bloo d loss was minimal. Post Procedure Diagnosis: - The major pa matthias appeared normal. - Localized bi liary strictures were found in the bifurcation an d right main hepatic duct. Left hepatic system was not accessed - A biliary sp hincterotomy was performed. - The bifurcat ion and right main hepatic duct was successfully d ilated. - One 10 Fr by 7 cm double pigtail plastic stent was placed int o the right hepatic duct. Recommendation: - The patient will be observed post-procedure, until all disc harge criteria are met. - [facility]ie [facility] to [facility]. - Clear liquid diet today. - Advance diet as tolerated. - Levaquin (le vofloxacin) 500 mg PO daily for 3 days. Attending Participation: I was present and participated during the entire procedure, inc luding non-pope portions. RONI GUERRERO MD 05/12/2020 7:07:36 PM This report has been signed electronical ly. Number of Addenda: 0 [place] ENDOSCOPY FLUOROSCOPY (05/12/2020 4:51 PM CDT) Specimen Narrative Performed At This procedure requires no interpretation from the rad iologist. MRSA Screening Culture (05/12/2020 10:04 AM CDT) Final Report No Methicillin resistant [place] MD [facility] Staphylococcus aureus [facility] isolated. Path Review The results have been review ed and electronically signed by Pathologist: [place] MD STEPHANIE GRAHAM MD #[id number] [facility] R Specimen Nasal Narrative Performed At Nasal - R is on the label. 05/12/2020 11:15:11 AM CDT. [facility] Performing Organization Address City/[facility] Phon e Number [facility] Unless otherwise noted, [address] all lab tests performed by: Division of Pathology and Laboratory Medicine [address] [place] [address] Procalcitonin (05/12/2020 5:38 AM CDT) Procalcitonin 0.16 (H) <=0.08 ng/mL [facility] Comment: [facility] Procalcitonin > 2.00 ng/mL: Procalcitonin levels above 2.00 ng/mL are highly suggestive of a high risk for systematic bacterial infection/ severe sepsis and/or septic shock. Procalcitonin < 0.50 ng/mL: Procalcitonin levels below 0.50 ng/mL are at low risk for progression to severe sepsis and/ or septic shock. Procalcitonin (ProCT) betwee n 0.15 and 2.0 ng/mL do not exclude infection, because localized infections (without systemic signs) may be associated with such low levels. Results greater than 400 ng/ mL may not be reliable due to the matrix effect with extended dilution as it exceeds the mill worker's recommended limit. Caution should be exercised when interpreting such values and done in conjunction with clinical context. Specimen Blood Performing Organization Address [facility] Phon e Number [facility] Unless otherwise noted, [address] all lab tests performed by: Division of Pathology and Laboratory Medicine [address] [place] [address] IR IVC FILTER PLACEMENT (05/11/2020 4:33 PM CDT) Specimen Narrative Performed At This result has an attachment that is no t available. Date of Procedure: 05/11/20 Attending Physician: Census Clerk: Dilan Graff Pre Procedure Diagnosis: Acute dvt of lower leg [[id number]] Post Procedure Diagnosis: Unchanged Indication: Venous thromboembolism and contraindicat ion for anticoagulation Title of Procedure: Percutaneous fluoroscopic Image-Guided Inferior Vena C catie Filter Placement. Operative Findings: Technically successful insertion of a an Option Elite in the infra-renal IVC. Consent: The procedure, risks, indications and alter natives were explained. All questions were answered and informed co nsent was obtained. I have reviewed the history and physical dictated by bri bell mid-level practitioner / fellow. Sedation/Anesthesia: Moderate sedation for pain control and anxiety was adm inistered by a dedicated nurse under my supervision. There was cont inuous monitoring of oxygen saturation, heart rate and intermittent monitor ing of blood pressure during the procedure. Medication given was midazolam and fentanyl. I was present for the administration of bri bell medications indicated above. Procedure Events Event Event Time Sedation Start 05/11/2020 3:32 PM Sedation End 05/11/2020 4:45 PM Procedure in Detail: Relevant prior imaging was reviewed. A time out was pe rformed prior to the start of the procedure and the correct patient, proced ure, presence of consent, site, and side were confirmed with all member s of the team. Prophylactic Antibiotic administered: None Preparation: The site was prepared and draped using camden bauer sterile barrier technique including cutaneous antisepsis with 2% chlorhexidine. Ultrasound evaluation of the access site demonstrated a patent and compressible vein. With the patient in the supine po sition, the skin overlying the access site was prepped and draped in th e usual sterile fashion. Lidocaine 1% was used for local anesthesia. Under ultrasound imaging guidance a 21 gauge needle was advanced into arbaella right internal jugular and the access site was scaled up to accept a Micropuncture transition dilator. An image was obtained and placed into the medical record. A guidewire was advanced into the venous system under fluoroscopic-guidance and a 5 Bahraini flush catheter wa s advanced into the left common iliac vein, followed by digital subtractio n venography of the inferior vena cava and its major branches. Indication for Venography: Document IVC size and anato my and determine level of renal vein inflow Findings: IVC Patency: Patent IVC Size: Normal (up to 30mm) IVC Anatomy: Low insertion of right renal vein The access site was then scaled up to accept the filte r delivery system and the filter was deployed in the inferior vena cava with fluoroscopic guidance. All catheters and wires were removed from the patient and hemostasis was achieved using manual compression. Sterile dressing wa s applied. Contrast: IOHEXOL 300 MG IODINE/ML INTRAVENOUS SOLUTIO N - 50 mL Additional Comments: None Estimated Blood Loss: Minimal Specimens Removed: No Immediate Complications: None Disposition: PACU Plan: The type of filter inserted was intended for potent ial retrieval. The optimal window for successful retrieval is within 3 mo nths of insertion. I certify my physical presence at the time of the proc edure. I personally reviewed the image(s) and the resident's / fellow's in terpretation and agree with the written report. US Leg Venous Doppler Bilateral (05/11/2020 12:53 PM CDT) Specimen Impressions Performed At [id number] Left distal popliteal vein partially occ lusive thrombus. Findings were discussed with Dr. Catalan at 2:00 PM, 05/11/2020 Narrative Performed At FULL RESULT: [id number] Examination: US LEG VENOUS DOPPLER BILAT ERAL, 05/11/2020 12:53 PM Clinical History: Rectal cancer Indication: Previous DVT Comparison: None available. Technique: Grayscale and color/spectral Doppler ultras ound of the bilateral lower extremity veins was perf ormed. Findings: A focal nonocclusive thrombus is in the left distal po pliteal vein. Left common femoral, femoral veins demonstrate color f low, compressibility, and response to augment ation. The right common femoral, femoral, and popliteal veins demonstrate color flow, compressibility, and response to augmentat ion. The visualized posterior tibial, peroneal and anterior tib ial veins are patent and compressible. Procedure Note Interface, Radiology Results In - 2020 2:04 PM CDT FULL RESULT: Examination: US LEG VENOUS DOPPLER BILAT ERAL, 05/11/2020 12:53 PM Clinical History: Rectal cancer Indication: Previous DVT Comparison: None available. Technique: Grayscale and color/spectral Doppler ultrasound of the bilateral lower extremity veins was performed. Findings: A focal nonocclusive thrombus is in the left distal popliteal vein. Left common femoral, femoral veins demonstrate color flow, compressibility, and response to augmentation. The right common femoral, femoral, and p opliteal veins demonstrate color flow, compressibility, and response to augmentation. The visualized posterior tibial, peroneal and anterior tibial veins are patent and compressible. IMPRESSION: Left distal popliteal vein partially occ lusive thrombus. Findings were discussed with Dr. Catalan at 2:00 PM, 05/11/2020 Performing Organization Address City/State/ZIP Code Phon e Number [id number] TMP Interpretation Manual Antibody Screen Negative (05/11/2020 8:01 AM CDT) TMP Neg ABSC At the present time, melody gregory plasma shows no evidence of RBC alloantibodies. [facility] Interp Comment: CANCER CENTER MD Nikolay GURROLA [id number] Dictated by: BRITTANY LANE MD - [id number] Dictated Date/Time: 05.12.19 9:51 AM CDT Transcribed Date/Time: 05.11.2020 9:51 AM CDT Electronically Signed By: MD Nikolay NEIL [id number] on 05.11.2020 9:51 AM C Specimen Blood Performing Organization Address City/[facility] Code Phon e Number [facility] CANCER Unless otherwise noted, [address] all lab tests performed by: Division of Pathology and Laboratory Medicine [address] Antibody Screen Manual (05/11/2020 8:01 AM CDT) Pathologist Sig nature ABSC Interp Negative ABSC [facility] Specimen Blood Performing Organization Address City/[facility] Phon e Number [facility] CANCER Unless otherwise noted, [address] all lab tests performed by: Division of Pathology and Laboratory Medicine [address] ABORh Manual (05/11/2020 8:01 AM CDT) Pathologist Sig nature ABORh Manual O NEG [facility] Specimen Blood Performing Organization Address City/[facility]/ZIP [facility] Phon e Number [facility] CANCER Unless otherwise noted, [address] all lab tests performed by: Division of Pathology and Laboratory Medicine [address] NT-Pro BNP (In-House) (05/11/2020 7:22 AM CDT)Only the most recent of2 results within the time period is included. Pathologist Sig nature NT ProBNP 275 <=450 pg/mL [facility] Specimen Blood Performing Organization Address City/[facility] Phon e Number [facility] CANCER Unless otherwise noted, [address] all lab tests performed by: Division of Pathology and Laboratory Medicine [facility] TMP Interpretation Transfusion Reaction (05/11/2020 5:35 AM CDT) TMP TXN RXN UNKNOWN PATHOPHYSIOLOGY. Please see consult note in [employer]. [facility] Interp Comment: CANCER CENTER SABAS BEARD, Dictated by: SABAS BEARD, Dictated Date/Time: 05.12.19 16:20 PM CDT Transcribed Date/Time: 05.11.2020 16:20 PM CDT Electronically Signed By: SABAS BEARD, on 16:20 PM Specimen Blood Performing Organization Address City/[facility] Phon e Number [facility] Unless otherwise noted, [address] all lab tests performed by: Division of Pathology and Laboratory Medicine [address] [place] [address] Transfusion Reaction (05/11/2020 5:35 AM CDT) Specimen Blood Narrative Performed At Obtain 7 mL blood sample, in pink top vacutainer, and [facility] label specimen TRANSFUSION REACTION. Performing Organization Address City/[facility] Phon e Number [facility] Unless otherwise noted, [address] all lab tests performed by: Division of Pathology and Laboratory Medicine [facility] [place] [address] XR Chest 1 View (05/11/2020 5:28 AM CDT) Specimen Impressions Performed At [id number] No acute pulmonary process. Enlarged heart with dilate d and tortuous thoracic aorta. Narrative Performed At FULL RESULT: [id number] Examination: AP Portable Chest, 1 view, 05/11/2020 5:28 AM Clinical History: Rectal cancer Indication: Chest pain, Negative COVID-1 9 Test Result Comparison: Chest CT 05/10/2020 Technique: Single portable anteroposteri or radiograph of the chest. Findings: Patient positioning is lordotic. The lungs are adequat nahid inflated. No acute consolidation. No pleural effusion or pneumothorax. The heart is top normal in size. The ascending thoraci c aorta is dilated and the descending thoracic aort a is tortuous. Procedure Note Interface, Radiology Results In - 2020 8:33 AM CDT FULL RESULT: Examination: AP Portable Chest, 1 view, 05/11/2020 5:28 AM Clinical History: Rectal cancer Indication: Chest pain, Negative COVID-1 9 Test Result Comparison: Chest CT 05/10/2020 Technique: Single portable anteroposteri or radiograph of the chest. Findings: Patient positioning is lordotic. The harshil gs are adequately inflated. No acute consolidation. No pleural effusion or pneumothorax. The heart is top normal in size. The asc ending thoracic aorta is dilated and the descending thoracic aorta is tortuous. IMPRESSION: No acute pulmonary process. Enlarged hea rt with dilated and tortuous thoracic aorta. Performing Organization Address [facility] Phon e Number [id number] Cardiac Panel (05/11/2020 5:19 AM CDT) CK 61 26 - 192 U/L [facility] CK MB <2.0 <=5.3 ng/mL [facility] Troponin T 11 <=18 ng/L [facility] Comment: CANCER CENTER < 19 ng/L Suggest retest at 3 to 6 hours later to rule out myocardial infarction >= 19 to <=52 ng/L Possible myocardial injury. Suggest retest at 3 hours. - a change of < 20 ng/L, retest at 6 hours - a change of >= 20 ng/L, suggestive of myocardial infarction > 52 ng/L Suggestive of myocardial infarction Critical value will be repor horacio when cTnT is > 52 ng/L and only reported for the first in a series. Hemolyzed specimens with Hem olysis Index >100 (100 mg/dl or moderate hemolysis) may cause interferences and falsely low results. Specimen Blood Performing Organization Address [facility] Phon e Number [facility] CANCER Unless otherwise noted, [place] [address] CENTER all lab tests performed by: Division of Pathology and Laboratory Medicine [address] [place] [address] CT Chest with Contrast (05/10/2020 10:10 PM CDT) Specimen Impressions Performed At [id number] 1. No pneumonia. 2. Aneurysmal dilation of the ascending thoracic aor ta measures 4.9 cm in diameter. I personally reviewed these image(s) along with the resident's/fellow's interpretations, certify that if a procedure was performed I was physically present, and agree with the final report. Narrative Performed At FULL RESULT: [id number] Examination: CT CHEST W CONTRAST, 05/11/19 10:10 PM Clinical History: Patient is a 74-year-old female with metastatic rectal cancer, presenting with nausea vomiting and ane topher with hemoglobin of 5.8. Indication: Scan request unrelated to ines ng cancer Comparison: Outside hospital CT chest ab domen pelvis 04/01/2020 Technique: CT of the chest was performed with intravenous contrast. Findings: Lines and tubes: None. Lungs and airways: No pneumonia. Stable 0.4 cm solid n odules in the left lower lobe, seen on series 8 image 281 and in the lingula on image 198 likely representing granulomas or intrapulmo nary lymph nodes. Pleural spaces: No pleural effusion or p neumothorax. Lymph nodes: No axillary, hilar or media stinal lymphadenopathy. Cardiovascular: The heart is normal. No pericardial ef fusion. Mild coronary artery calcifications. The main pulmonary art ally is normal in diameter. No change in the aneurysmal dilatation of th e ascending aorta measuring 4.9 cm. Other Mediastinum: Thyroid goiter is noted. Bilateral heterogenous thyroid nodules, for example measuring 2.8 x 2.0 cm an d the left lobe of thyroid, 1.8 x 1.1 cm at the isthmus and 3.2 x 2.4 cm in the right lobe, unchanged from prior. Bones and soft tissues: No suspicious os seous lesions. Procedure Note Interface, Radiology Results In - 2020 7:21 AM CDT FULL RESULT: Examination: CT CHEST W CONTRAST, 05/11/19 10:10 PM Clinical History: Patient is a 74-year-o ld female with metastatic rectal cancer, presenting with nausea vomiting and anemia with hemoglobin of 5.8. Indication: Scan request unrelated to ines ng cancer Comparison: Outside hospital CT chest ab domen pelvis 04/01/2020 Technique: CT of the chest was performed with intravenous contrast. Findings: Lines and tubes: None. Lungs and airways: No pneumonia. Stable 0.4 cm solid nodules in the left lower lobe, seen on series 8 image 281 and in the lingula on image 198 likely representing granulomas or intrapulmonary lymph nodes. Pleural spaces: No pleural effusion or p neumothorax. Lymph nodes: No axillary, hilar or media stinal lymphadenopathy. Cardiovascular: The heart is normal. No pericardial effusion. Mild coronary artery calcifications. The main pulmonary artery is normal in diameter. No change in the aneurysmal dilatation of the ascending aorta measuring 4.9 cm. Other Mediastinum: Thyroid goiter is not ed. Bilateral heterogenous thyroid nodules, for example measuring 2.8 x 2.0 cm and the left lobe of thyroid, 1.8 x 1.1 cm at the isthmus and 3.2 x 2.4 cm in the right lobe, unchanged from prior. Bones and soft tissues: No suspicious os seous lesions. IMPRESSION: 1. No pneumonia. 2. Aneurysmal dilation of the ascending thoracic aorta measures 4.9 cm in diameter. I personally reviewed these image(s) thi ng with the resident's/fellow's interpretations, certify that if a procedure was performed I was physically present, and agree with the final report. Performing Organization Address City/State/ZIP Code Phon e Number [id number] Confirm ABORh (05/10/2020 9:33 PM CDT) Pathologist Sig nature ABORh Confirm. O NEG [facility] CANCER [facility] ER Specimen Blood Performing Organization Address City/State/ZIP Code Phon e Number [facility] CANCER Unless otherwise noted, [place] [address] CENTER all lab tests performed by: Division of Pathology and Laboratory Medicine [facility] X-ray Abdomen 2 View (05/10/2020 7:47 PM CDT) Specimen Impressions Performed At Mildly dilated ascending and transverse colon may be r elated to the [id number] distal colonic obstruction from the know n descending colonic mass. No dilated small bowel loops. No evidenc e of small bowel obstruction.. Linear hyperdensity in the right para midline pelvis, may be the migrated fallopian tube device in the uterine cavity a nd correlated clinically. Narrative Performed At FULL RESULT: [id number] Examination: XR ABDOMEN 2 VW AP W UPRIGHT AND OR DECUB ITUS on 05/10/2020 7:47 PM Clinical History: Rectal cancer. Indication: Abdominal pain. Comparison: CT scan dated 04/01/2020. Technique: XR ABDOMEN 2 VW AP W UPRIGHT AND OR DECUBITUS Findings: Rqnp-rt-yzpjrsan colonic fecal material. Mildly dilate d ascending colon containing fecal material in mild gaseous dilata tion of the transverse colon measuring up to 6.6 cm in diameter. M oderate fecal material in the region of the rectum. Gas containing nondilated small bowel loops in the rig ht lower abdomen with nonobstructive bowel gas pattern. Irregular linear hyperdensity in the right pelvis, may be the migrated fallopian tube device in the uterine cavity, to be cor related clinically. Postcholecystectomy clips projecting over the right upper abdomen. No free intraperitoneal gas under the di aphragm. Degenerative changes in the spine. Tiny calcific densi ties in the pelvis, likely represent phleboliths. Procedure Note Interface, Radiology Results In - 2020 1:28 AM CDT FULL RESULT: Examination: XR ABDOMEN 2 VW AP W UPRIGH T AND OR DECUBITUS on 05/10/2020 7:47 PM Clinical History: Rectal cancer. Indication: Abdominal pain. Comparison: CT scan dated 04/01/2020. Technique: XR ABDOMEN 2 VW AP W UPRIGHT AND OR DECUBITUS Findings: Vygt-ub-zmahxuzx colonic fecal material. Mildly dilated ascending colon containing fecal material in mild gaseous dilatation of the transverse colon measuring up to 6.6 cm in diameter. Moderate fecal material in the region of the rectum. Gas containing nondilated small bowel lo ops in the right lower abdomen with nonobstructive bowel gas pattern. Irregular linear hyperdensity in the rig ht pelvis, may be the migrated fallopian tube device in the uterine cavity, to be correlated clinically. Postcholecystectomy clips projecting over the right upper abdomen. No free intraperitoneal gas under the di aphragm. Degenerative changes in the spine. Tiny calcific densities in the pelvis, likely represent phleboliths. IMPRESSION: Mildly dilated ascending and transverse colon may be related to the distal colonic obstruction from the known descending colonic mass. No dilated small bowel loops. No evidenc e of small bowel obstruction.. Linear hyperdensity in the right para mi dline pelvis, may be the migrated fallopian tube device in the uterine cavity and correlated clinically. Performing Organization Address City/State/ZIP Code Phon e Number [id number] Respiratory Viral Panel + COVID-19, Nasopharyngeal Swab (05/10/2020 7:08 PM CDT) Adenovirus Not Detected Not Detected [facility] Coronavirus 229E Not Detected Not Detected [facility] Coronavirus HKU1 Not Detected Not Detected [facility] Coronavirus NL63 Not Detected Not Detected [facility] Coronavirus OC43 Not Detected Not Detected [facility] COVID19 (SARS-CoV-2) Not Detected Not Detected [facility] Human Metapneumovirus Not Detected Not Detected [facility] Human Not Detected Not Detected [facility] Rhinovirus/Enterovirus [facility] Influenza A Not Detected Not Detected [facility] Influenza A H1 Not Detected Not Detected [facility] Influenza A H1 2009 Not Detected Not Detected [facility] Influenza A H3 Not Detected Not Detected [facility] Influenza B Not Detected Not Detected [facility] Parainfluenza 1 Not Detected Not Detected [facility] Parainfluenza 2 Not Detected Not Detected [facility] Parainfluenza 3 Not Detected Not Detected [facility] Parainfluenza 4 Not Detected Not Detected [facility] Respiratory Syncytial Not Detected Not Detected [facility] Virus [facility] Bordetella Not Detected Not Detected [facility] Parapertussis [facility] Bordetella pertussis Not Detected Not Detected [facility] Chlamydiophila Not Detected Not Detected [facility] pneumoniae [facility] Mycoplasma pneumoniae Not Detected Not Detected [facility] Specimen Nasopharyngeal Swab Narrative Performed At The [facility] RP2.1 is a real-time, nested multiplexed [facility] polymerase chain reaction test designed to simultaneously identify nucleic acids from 22 differ t viruses and bacteria associated with respiratory tract infection, including SARS-CoV-2, from a single nasopharyngeal swab ([employer]ODUCTION MACHINE OPERATOR) specimen. Specifically, the SARS-CoV-2 primers contained in the [facility] RP2.1 are designed to detect RNA from the SARS-CoV-2 in nasopharyngeal swabs in transport media from patients who are suspected of COVID-19 by their healthcare provider. Results must be interpreted withi n the context of all relevant clinical and laboratory findings and should not form the sole basis for a diagnosis or treatment decision. This assay has been approved by the FDA for use only under Emergency Use Authorization (EUA) in laboratorie s that have been CLIA-certified to perform moderate-complexity and high-complexity tests. The Microbiology Laboratory at [facility], CLIA Accreditation #[id number] and CAP Accreditation #[id number], verified the performance characteristics of this assay. Microbiology Laboratory at [facility] performs the assay using the [employer]ek[employer] System. Internal controls are used to monitor all stages of the test process. Performing Organization Address City/State/ZIP Code Phon e Number [facility] Unless otherwise noted, [address] all lab tests performed by: Division of Pathology and Laboratory Medicine [address] Lipase (05/10/2020 7:08 PM CDT) Pathologist Sig nature Lipase Lvl 29 13 - 60 U/L [facility] Specimen Blood Performing Organization Address City/[facility]/ZIP Code Phon e Number [facility] CANCER Unless otherwise noted, [address] all lab tests performed by: Division of Pathology and Laboratory Medicine [address] Amylase (05/10/2020 7:08 PM CDT) Pathologist Sig nature Amylase Lvl 65 28 - 100 U/L [facility] Specimen Blood Performing Organization Address City/[facility]/ZIP Code Phon e Number [facility] CANCER Unless otherwise noted, [address] all lab tests performed by: Division of Pathology and Laboratory Medicine [address] CHEST ABDOMEN PELVIS (04/01/2020 10:18 PM CLOTH FRAMER) Specimen Narrative Performed At Study acquired at another institution. For comparison only. No [facility] originated interpretation requested or available. Pathology Outside Interpretation (03/30/2020) Materials Accession#, Stained, Block, Unstained Collected Receiv ed [facility] Received A. [id number], 5 SS, 0 BLOCKS, 0 USS 03/30/2020 04/23/19 21 Addendum 2 The tumor cells of both saleh sverse colon mass (A) and rectosigmoid mass (B) show retained nuclear expression for the mismatch repair proteins MLH1, PMS2, MSH6, and MSH2, favoring a low probability for high microsatellite instability. [facility] Addendum electronically Immunohistochemical stain fo r HER-2/suellen is negative (score 0) in both tumors (A and B). signed by Eduardo Sandoval MD on 07/16/2020 at 10 :02 AM Addendum 1 Additional material received on 05/28/2020, Outside 30021, 0 SS, 0 BLOCK, 20 USS, collected on 03/30/2020. [facility] Addendum Additional material received on 06/09/2020, Outside 0 SS, 0 BLOCK, 18 USS, collected on 03/30/2020. electronically signed by Chika Hernández MD on 06/09/2020 at 2: 53 PM Diagnosis Five outside slides ([id number], collected on ): [facility] Electronically signed by Chika Osorio Colon, transverse mass, biopsy (A1 x4): MD Edgar on INVASIVE MODERATELY DIFFERENTIATED ADENOCARCINOMA. 04/22/2020 at 2:43 PM B. Colon, rectosigmoid mass, biopsy (B1): INVASIVE MODERATELY DIFFERENTIATED ADENOCARCINOMA. Disclaimer "Some tests reported here [facility] may have been developed and performance characteristics determined by [facility]. These tests have not been specifically cleared or approved by the U.S. Food and Drug Administration. If applicable, controls were reviewed and showed appropriate reactivity." Specimen Tissue Performing Organization Address City/State/ZIP Code Phon e Number [facility] [place] [address] [id number] [facility] Insurance Payer Benefit Plan / Subscriber ID Effective Dates Phone Addre ss Type Group AARP MEDICARE AAR MEDICARE [id number] 2020-Present Medicare COMPLETE CHOICE PLAN [address] [place] [phone] Krista Chakraborty Personal/Family Self [address] [place] [address] ([place]) [address] [place] [phone] Advance Directives Type Date Recorded 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
--- OUTSIDE RECORDS SUMMARY | 2020-09-22 11:48 | XMS REPORT | Continuity of Care Document ---
:1945 Author Organization [facility] t Address [address] [place] [address] Care Team Providers Name Role Phone [phone] Primary Care Physician Unavailable SYSTEM, NOT IN Attending Clinician Unavailable RODGER Attending Clinician Unavailable Chey GUERRERO Attending Clinician Unavailable Hermann RAPP M Attending Clinician Unavailable Aggie Almonte MD Attending Clinician AGGIE ALMONTE II Attending Clinician Unavailable Ean RAPP M Attending Clinician Unavailable Fili Kilgore Attending Clinician Juma LOERA Attending Clinician Drew PABLO Attending Clinician Mally PABLO Attending Clinician Alfredo PABLO Attending Clinician Jordin PABLO Attending Clinician Jesus LOERA Attending Clinician JESUS Attending Clinician Unavailable JORDIN Attending Clinician Unavailable Taryn [facility] [place] Attending Clinician Nick PABLO Attending Clinician Moo [facility] Attending Clinician ALFREDO Attending Clinician Unavailable MALLY Attending Clinician Unavailable Fady PABLO Attending Clinician James MAYER Attending Clinician DREW Attending Clinician Unavailable Sherry Patrick MD Attending Clinician Gelacio RN Attending Clinician Unavailable Casey Lawrence MD Attending Clinician Jurgen Raman MD Attending Clinician Luisa PABLO Attending Clinician Ebony Mcdonald MD Attending Clinician Lalit Ryan MD Attending Clinician SHERRY PATRICK Attending Clinician Unavailable Babak Hernandez Attending Clinician FILI SHERMAN Attending Clinician Unavailable Selena PABLO Attending Clinician SELENA Attending Clinician Unavailable Ebony Rivas DO Attending Clinician Kervin Joseph CRNA Attending Clinician Unavailable Eduar HELTON Attending Clinician ROSHAN Attending Clinician Unavailable Roshan HELTON Attending Clinician Gary MORLEY R Attending Clinician Unavailable Clay RAPP, S Attending Clinician Unavailable Marta Collier Attending Clinician Cedric GRIMM Attending Clinician Unavailable Cedric Grimm MD Attending Clinician Roni Banks MD Attending Clinician Anjana RN, T Attending Clinician Unavailable Irene RAPP, S Attending Clinician Unavailable Hermann RAPP, L Attending Clinician Unavailable Trevor RAPP Attending Clinician Unavailable Gia [facility] Attending Clinician Unavailable Janessa Guo, K Attending Clinician Unavailable Edgar RAPP Attending Clinician Juanito PEREZ K Attending Clinician Huy RN, Kevin Attending Clinician Unavailable Isaias RAPP, Monserrat Attending Clinician Unavailable Berhane RAPP Attending Clinician Unavailable Frank RAPP, E Attending Clinician Unavailable Johnnie RAPP, J Attending Clinician Unavailable Rhett COPPOLA Attending Clinician Unavailable Rhett Coppola MD Attending Clinician Babak SOLOMON Attending Clinician Unavailable Awilda Robbins MD Attending Clinician SANTANA GARCIA Attending Clinician Unavailable Santana Garcia MD Attending Clinician Humphrey THAYER Attending Clinician Unavailable Chen PABLO Attending Clinician Rolly PABLO Attending Clinician MAVERICK Attending Clinician Unavailable Maverick PABLO PhD Attending Clinician Christin RAPP Attending Clinician Bal RAPP, M Attending Clinician Unavailable Tamika PABLO Attending Clinician Chava PABLO Attending Clinician AWILDA ROBBINS Attending Clinician Unavailable Kervin Lobo MD. Attending Clinician Shaik TAMELA, B Attending Clinician Rodger PABLO Attending Clinician Cesar HELTON Attending Clinician Roshan Field MA, R Attending Clinician Unavailable Marysol MISSIONARY COORDINATOR Attending Clinician Syl ALTAMIRANO, S Attending Clinician Juana PABLO Attending Clinician Pritesh RAPP, F Attending Clinician Unavailable Meng PABLO Attending Clinician Chika Hardin MD Attending Clinician Cindy Edwards MD Attending Clinician Mikhail PABLO, H. Attending Clinician Kam PABLO Attending Clinician Cesar PABLO, H. Attending Clinician Inderjit Olivares MD Attending Clinician KAUR Attending Clinician Unavailable Adrian RAPP Attending Clinician Unavailable Emilee PABLO Attending Clinician Wan Jimenez MD Attending Clinician Surendra MAYER Attending Clinician Doctor Unassigned, Name Attending Clinician Unavailable RODGER Admitting Clinician Unavailable Chey GUERRERO Admitting Clinician Unavailable DREW Admitting Clinician Unavailable SHERRY PATRICK Admitting Clinician Unavailable SELENA Admitting Clinician Unavailable CHAVA Admitting Clinician Unavailable ALFREDO Admitting Clinician Unavailable Payers Payer Name Policy Type Policy Number Effective Date Expiration Date S gatito [facility] MEDICARE [id number] 2020 COMPLETE CHOICE 00:00:00 PLAN 2 [facility] [id number] 2020 [facility] - MEDICARE MGD 00:00:00 - Medical [employer] Center [id number] 2020-Present [facility] MEDICARE [id number] 2020 ADVANTAGE 00:00:00 Problems Condition Condition Condition Status Onset Resolution Last Treating Co mments Source Name Details Category Date Date Treatment Clinician Date Hematochez Hematochez Disease Active Overview : ia ia 7-16 Formatfavian Addison 00:00: g of this n 00 note might be different from the original. Due to intermitt ent rectal tumor bleeding H/O: Deep H/O: Deep Disease Active Overview: vein vein 7-10 Manjula Addison thrombosis thrombosis 00:00: g of this n 00 note might be different from the original. S.p IVCFilter Takotsubo Takotsubo Disease Active Overview: cardiomyop cardiomyop 7-10 Formatfavian Addison athy athy 00:00: g of this n 00 note might be different from the original. Complicat ed course with acute AAA, s/p endovascu lar graft, with takatsubo CMP, hemothora x s/p chest tube, required intra-aor tic balloon pump. 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 7-10 Mauri rso neoplastic neoplastic 00:00: n disease disease 00 Disorder Disorder Disease Active MD of fluid of fluid 08-14 Aaron o AND/OR AND/OR 00:00: n electrolyt electrolyt 00 e e Pulmonary Pulmonary Disease Active embolism embolism 08-14 Aaron o 00:00: n 00 Coronary Coronary Disease Active arterioscl arterioscl 08-14 An derso erosis erosis 00:00: n 00 Cachexia Cachexia Disease Active MD 7- Anderso 00:00: n 00 Lower Lower Disease Active gastrointe gastrointe 08-11 An derso stinal stinal 00:00: n hemorrhage hemorrhage 00 Paroxysmal Paroxysmal Disease Active M D atrial atrial 08-11 Anderso fibrillati fibrillati 00:00: n on on Dissection Dissection Disease Active Overview : MD of aorta of aorta 08-11 Formattin And erso 00:00: g of this n 00 note might be different from the original. Complicat ed course with acute AAA, s/p endovascu lar graft, with takatsubo CMP, hemothora x s/p chest tube, required intra-aor tic balloon pump. Managed at [facility] History of History of Disease Active Overview : repair of repair of 08-11 Formattin A nderso aneurysm aneurysm 00:00: g of this n of of 00 note abdominal abdominal might be aorta aorta different using using from the endovascul endovascul original. ar stent ar stent Complicat graft graft ed course with acute AAA, s/p endovascu lar graft, with takatsubo CMP, hemothora x s/p chest tube, required intra-aor tic balloon pump. Managed at [facility] Anticoagul Anticoagul Disease Active M D ant ant 08-11 Anderso adverse adverse 00:00: n reaction reaction 00 Hematochez Hematochez Disease Active [facility] ia ia 08-06 [facility] - 00:00: Medical 00 Center Cholangiti Cholangiti Disease Active [facility] s 08-05 [facility] - 00:00: Medical 00 Center Biliary Biliary Disease Active 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 Stress-ind Stress-ind Disease Active [facility] uced uced 07-30 [facility] cardiomyop cardiomyop 00:00: Me dical athy athy 00 Hamer Left Left Disease Active [facility] pleural pleural 07-30 [facility] - effusion effusion 00:00: Medica l 00 Hamer Elevated Elevated Disease [facility] liver liver [facility] - enzymes enzymes 00:00: Medical 00 Center A-fib A-fib Disease Active [facility] 07-26 [facility] 00:[facility] Medical [facility] Center Ascending Ascending Disease Active [facility] aortic aortic 07-21 [facility] - dissection dissection 00:00: Me dical s/p s/p 00 Hamer ascending ascending + proximal + proximal transverse transverse arch arch replacemen replacemen t (28mm t (28mm graft, graft, 07/21, 07/21, Dr. 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 Placed 05/11/2020 when she presented with new diagnosis untreated bleeding rectal cancer and new DVT. Will defer retrieval of IVC filter until it is clear she can tolerate anticoagu lation. We will likely place referral at next follow-up . IVC filter IVC filter Disease Active Overview : [facility] in [facility] 06-02 [facility] - 00:00: Assessmen Medical 00 t & Plan: Center Formattin g of this note might be different from the original. Placed 05/11/2020 when she presented with new diagnosis untreated bleeding rectal cancer and new DVT. Will defer retrieval of IVC filter until it is clear she can tolerate anticoagu lation. We will likely place referral at next follow-up . Moderate Moderate Disease Active protein-ca protein-ca 4-19 Janel derso [facility] 00:00: n malnutriti malnutriti 00 on on Moderate Moderate Disease Active [facility] protein-ca protein-ca 4-19 Arin kes - [facility] 00:00: Medical malnutriti malnutriti 00 Ce nter on on Malignant Malignant Disease Active neoplasm neoplasm 05-13 Aaron o of of 00:00: n transverse transverse 00 colon colon Hepatic Hepatic Disease Active [facility] metastasis metastasis 05-12 Arin kes - 00:00: Medical 00 Center Obstructio Obstructio Disease Active [facility] n of n of 05-12 [facility] - biliary biliary 00:00: Medical tree tree 00 Center Acute Acute Disease Active Last iliac DVT iliac DVT 05-11 Assessmen A nderso 00:00: t & Plan: n 00 Formattin g of this note might be different from the original. Right internal iliac nonocclud ing vein deep vein thrombosi s seen on 05/10/2020 CT abdomen pelvis obtained for staging. Left distal popliteal vein partially occlusive thrombus diagnosed 05/11/2020 by venous Doppler. She could not be started on anticoagu lation due to anemia with ongoing rectal bleeding. She remains without bleeding. We will start Eliquis 5 mg p.o. twice daily. Rectal Rectal Disease Active cancer cancer 05-10 Anderso 00:00: n 00 Nausea and Nausea and Disease Active M D vomiting vomiting 05-10 Aaron o 00:00: n 00 Weakness Weakness Disease Active 05-10 Anderso 00:00: n 00 Hypokalemi Hypokalemi Disease Active M D a a 05-10 Anderso 00:00: n 00 Abnormal Abnormal Disease Active liver liver 05-10 Anderso function function 00:00: n 00 Anemia due Anemia due Disease Active Overview : [facility] to chronic to chronic 05-10 Last Arin kes - blood loss blood loss 00:00: Assessmen Medical 00 t & Plan: Center Formattin g of this note might be different from the original. Start oral iron every other day. Benign Benign Disease Active [facility] lipomatous lipomatous 2-10 Arin kes - neoplasm neoplasm 00:00: Medica l of skin of skin 00 Center and and subcutaneo subcutaneo us tissue us tissue of left of left arm arm Essential Essential Disease Active 2018-[address] [facility] (primary) (primary) 2-18 Edwin bach - hypertensi hypertensi 00:00: Me dical on on 00 Center Hyperbilir Hyperbilir Disease Active M D ubinemia ubinemia Aaron o n Infection Infection Disease Resolve 2020-08-14 2020-08-14 MD caused by caused by d 08-11 00:00:00 12:40:15 Anderso Klebsiella Klebsiella 00:00: n 00 Acute Acute Disease Resolve 2020-08-11 2020-08-[address] [facility] embolism embolism d 05-11 00:00:00 04:02:41 Arin yanez - and and 00:00: Medical thrombosis thrombosis 00 Ce nter of of unspecifie unspecifie d femoral d femoral vein vein Bacteremia Bacteremia Disease Resolve 2020-08-06 2020-08-[address] [facility] [facility] d 07-30 00:00:00 00:32:18 [facility] 00:[facility]: Medical 00 Center Other Other Disease Resolve 2020-07-30 2020-07-[address] [facility] shock shock d 07-26 00:00:00 00:26:31 [facility] - 00:[facility]: Medical 00 Center Hemodynami Hemodynami Disease Resolve 2020-07-30 2020-07-[address] [facility] c c d 07-21 00:00:00 00:25:45 Nancy - instabilit instabilit 00:00: Me dical y y 00 Center Cardiogeni Cardiogeni Disease Resolve 2020-07-30 2020-07-[address] [facility] c shock c shock d - 00:00:00 00:25:33 Edwin s - 00:00: Medical 00 Center Vasogenic Vasogenic Disease Resolve 2020-07-30 2020-07-[address] [facility] shock shock d 07-21 00:00:00 00:25:34 [facility] - 00:[facility]: Medical 00 Center Acute Acute Disease Resolve 2020-07-30 2020-07-[address] [facility] [facility] respirator respirator d 6-16 00:00:00 22:02:05 [facility] - y failure y failure 00:00: Medi babs Center Tight Tight Disease Resolve 2020-05-12 2020-05-12 chest chest d 4-06 00:00:00 17:35:16 Aaron o 00:00: n 00 Allergies, Adverse Reactions, Alerts This patient has no known allergies or adverse reactions. Family History Family Member Diagnosis Comments Start Date Stop Date Source Natural mother Alzheimer's disease Kevin Leonardo Natural sister Ovarian cancer Social History Social Habit Start Date Stop Date Quantity Comments Source History [facility] MD Patterson Alcohol Std Drinks History [facility] MD Patterson Alcohol Binge Exposure to Not sure MD Patterson SARS-CoV-2 (event) Sex Assigned At [facility] Tobacco use and 2020-08-17 2020-08-17 Never used MD Walker on exposure 00:00:00 00:00:00 Alcohol intake 2020-08-17 2020-08-17 Lifetime MD Cyn steele 00:00:00 00:00:00 non-drinker (finding) History [facility] 2020-07-16 2020-07-16 16 MD Patterson Education 00:00:00 00:00:00 History [facility] 2020-05-10 2020-05-10 1 MD Patterson Alcohol Frequency 00:00:00 00:00:00 Smoking Status Start Date Stop Date Source Never smoker MD Patterson Medications Ordered Filled Start Stop Current Ordering Indication Dosage Frequency Signature Comments Components Source Medication Medication Date Date Medication? Clinician (SIG) Name Name ferrous Yes 325mg Take 325 MD sulfate 325 8-11 mg by Anderso mg (65 mg 21:40: mouth. n elemental 44 iron per tablet) tablet calamine-me Yes Chronic .5g Apply 0.5 MD nthol-zinc 7-29 iron g Anderso oxide 00:00: deficiency topically n (REMEDY 00 anemia to CALAZIME secondary affected PROTECT) to blood area(s) 3.5%-0.2%-1 loss twice 6.5% pste daily. topical paste metoprolol Yes Chronic 25mg Take 1 MD tartrate 7-29 iron tablet (25 Raoul so (LOPRESSOR) 00:00: deficiency mg) by n 25 mg 00 anemia mouth tablet secondary every 8 to blood (eight) loss hours. senna Yes Chronic 2{tbl} Take 2 MD (SENOKOT) 09-02 iron tablets by Mauri rso 8.6 mg 00:00: deficiency mouth 2 n tablet 00 anemia (two) secondary times a to blood day as loss needed for constipati on. ursodiol Yes Chronic 300mg Take 1 MD (ACTIGALL) 09-02 iron capsule Aaron o 300 mg 00:00: deficiency (300 mg) n capsule 00 anemia by mouth secondary twice to blood daily. loss ampicillin 2020- No Chronic 12g Infuse M D (OMNIPEN) 09-02 iron 12,000 mg Mauri rso IV 00:00: 04:59 deficiency (12 g) n prescriptio 00 :00 anemia intravenou n (HOME secondary sly infuse USE) to blood over 24 loss hours for 1 dose. Give ampicillin 12g IV over pump over 24 hours, then stop ferrous Yes 325mg Q.5D Take 325 [facility] sulfate 325 08-11 mg by [facility] - (65 FE) MG 17:37: mouth 2 Medi babs tablet 13 (two) Center times daily. ursodioL 2020- Yes 300mg Q.5D Take 1 [facility] (ACTIGALL) 08-11 capsule [facility] - 300 mg 00:00: 23:59 (300 mg Medical capsule 00 :00 total) by Center mouth 2 (two) times daily for 90 days. atorvastati 2020- No 20mg QD Take [address] [facility] n (LIPITOR) 08-11 tablet (20 L ukes - 20 MG 00:00: 23:59 mg total) Medica l tablet 00 :00 by mouth Center nightly for 30 days. metoprolol 2020-2020- No 50mg [id number] Take [address] [facility] tartrate 08-11- [id number] tablet (50 [facility] - (LOPRESSOR) 00:00: 23:59 3D mg total) Medical 50 MG 00 :00 by mouth 3 Center tablet (three) times daily for 30 days. heparin 2020- No 5000U Inject [address] [facility] injection 7-07 07-14 mL (5,000 Luke s - 5,000 00:00: 23:59 Units Medical units/mL 00 :00 total) Center subcutaneo usly every 12 (twelve) hours for 7 days. sterile 2020- No 1g Inject [address] [facility] water for 08-11 intravenou Michelle es - injection 00:00: 23:59 sly every Me dical Soln 20 mL 00 :00 12 Center with (twelve) meropenem 1 hours for gram SolR 1 7 days. g traMADol Yes Postoperati 50mg Take 1 MD (ULTRAM) 50 07-16 ve pain tablet (50 Anderso mg tablet 00:00: mg) by n 00 mouth every 6 (six) hours as needed for moderate pain. lidocaine-p Yes Encounter Apply to rilocaine 07-16 for Port-A-Cat Mauri rso (EMLA) 00:00: adjustment h area 30 n 2.5-2.5% 00 and to 45 cream management minutes of vascular prior to access port device access as directed (topical anesthetic use to the anterior chest only). apixaban 2020- No Acute 5mg Take 1 MD (Eliquis) 5 07-16 embolism tablet (5 Anderso mg tablet 00:00: 00:00 and mg) by n 00 :00 thrombosis mouth of every 12 unspecified (twelve) deep veins hours for of left 90 days. proximal lower extremity, not otherwise specified apixaban 2020- No 5mg Take [address] [facility] (ELIQUIS) 5 07-16 by mouth Michelle es - mg Tab 00:00: 00:00 every 12 Medica l tablet 00 :00 (twelve) Center hours For DVT. Was not taking [employer] as was just prescribed by [facility] and patient had not picked up yet. clindamycin 2020- No Adenocarcin Apply (CLEOCIN T) 07-06 phil of topically Anderso 1% lotion 00:00: 00:00 transverse to n 00 :00 colon affected area(s) 2 (two) times a day as needed (rash). loperamide 2020- No Adenocarcin 2 tabs by (Anti-Diarr 07-06 phil of mouth at A nderso heaL, 00:00: 00:00 transverse 1st loose n loperamide, 00 :00 colon stool, ) 2 mg then 1 tab capsule every 2hrs until diarrhea free for 12hrs. May take 2 tabs every 4hrs at night. doxycycline 2020- No Adenocarcin 100mg Take 1 MD (VIBRAMYCIN 07-06 phil of tablet And erso ) 100 mg 00:00: 00:00 transverse (100 mg) n tablet 00 :00 colon by mouth twice daily. sodium 2020- No Secondary Flush port MD chloride 07-02 malignant with 1 And erso (NS) 0.9% 00:00: 00:00 neoplasm of syringe n flush 00 :00 liver (10 ml) syringe 10 following mL 5-FU pump disconnect ondansetron Yes Adenocarcin 8mg Take 1 MD (Zofran) 8 5-04 phil of tablet (8 An derso mg tablet 00:00: transverse mg) by n 00 colon mouth every 8 (eight) hours as needed for nausea or vomiting. (First Choice) prochlorper Yes Adenocarcin 10mg Take 1 MD azine 5-04 phil of tablet (10 Aaron o (Compazine) 00:00: transverse mg) by n 10 mg 00 colon mouth tablet every 6 (six) hours as needed for nausea or vomiting. (Second Choice) furosemide Yes Adenocarcin 20mg Take 1 MD (Lasix) 20 4-28 phil of tablet (20 A nderso mg tablet 00:00: transverse mg) by n 00 colon mouth daily as needed for edema. furosemide 2020- No 20mg Take [address] [facility] (LASIX) 20 4-28 07-07 by mouth Luke s - MG tablet 00:00: 00:00 as needed. M edical 00 :00 Center levoFLOXaci 2020- No Obstruction 750mg Take 1 MD n 4-25 -28 of biliary tablet Aaron o (LEVAQUIN) 00:00: 00:00 tree (750 mg) n 750 mg 00 :00 by mouth tablet daily for 3 days. metroNIDAZO 2020- No Obstruction 500mg Take 1 MD LE (FlagyL) 4-25 04-28 of biliary tablet Anderso 500 mg 00:00: 00:00 tree (500 mg) n tablet 00 :00 by mouth 3 (three) times a day for 3 days. pantoprazol 40mg Take 40 mg MD e 05-29 by mouth Anderso (PROTONIX) 14:13: 00:00 daily as n 40 mg EC 19 :00 needed. tablet mirtazapine Other 15mg Take 1 MD (REMERON) 05-29- insomnia tablet (15 Anderso 15 mg 00:00: 00:00 mg) by n tablet 00 :00 mouth at bedtime. pantoprazol Obstruction 40mg Take 1 MD e 05-29 of biliary tablet (40 An derso (PROTONIX) 00:00: 00:00 tree mg) by n 40 mg EC 00 :00 mouth tablet daily with breakfast. dronabinol Adenocarcin 2.5mg Take 1 MD (MARINOL) 05-21 phil of capsule Mauri rso 2.5 mg 00:00: 00:00 transverse (2.5 mg) n capsule 00 :00 colon by mouth twice daily. ferrous No Anemia in 325mg Take 1 M D sulfate 325 05-17-13 malignant tablet Anderso mg (65 mg 00:00: 04:59 neoplastic (325 mg) n elemental 00 :00 disease by mouth 3 iron per (three) tablet) times a tablet week Sunday, Sunday and Sunday for 30 days. amLODIPine Yes Anemia in 5mg Take 1 MD (NORVASC) 5 4-10 malignant tablet (5 Anderso mg tablet 00:00: neoplastic mg) by n 00 disease mouth daily. amLODIPine No 5mg QD Take [address] (NORVASC) 5 4-10 07-07 by mouth Michelle es - MG tablet 00:00: 00:00 daily. Medic al 00 :00 Center amLODIPine 2020- No 2.5mg Take 2.5 M D (NORVASC) 05-14 04-09 mg by Anderso 2.5 mg 20:28: 00:00 mouth n tablet 54 :00 daily. senna 2020- No Anemia in 2{tbl} Take 2 (SENOKOT) 05-14 malignant tablets by Anderso 8.6 mg 00:00: 04:59 neoplastic mouth n tablet 00 :00 disease daily as needed for constipati on for up to 30 days. levoFLOXaci 2020- No Anemia in 500mg Take 1 MD n 05-14 malignant tablet Anderso (LEVAQUIN) 00:00: 04:59 neoplastic (500 mg) n 500 mg 00 :00 disease by mouth tablet daily for 2 doses. cholestyram 2020- No DISSOLVE & MD ine 04-07 TAKE 1 Anderso (QUESTRAN) 00:00: 00:00 POWDER n 4 g packet 00 :00 PACKET BY MOUTH ONCE DAILY clarithromy 2020- No rena 03-10 Andcal (BIAXIN) 00:00: 00:00 n 500 mg 00 :00 tablet amoxicillin 2020- No (AMOXIL) 03-10 Anderso 500 mg 00:00: 00:00 n capsule 00 :00 Immunizations Ordered Immunization Filled Immunization Date Status Commen ts Source Name Name Covid-19 Vaccine 2020-04-[address] [facility] - Mrna(pf) (Moderna) 00:00:00 Medica l Center Covid-19 Vaccine 2020-03-[address] [facility] - Mrna(pf) (Moderna) 00:00:[facility] Vital Signs Vital Name Observation Time Observation Value Comments Source WEIGHT 2020-07-16 11:25:54 67.8 kg WEIGHT 2020-07-16 11:25:54 67.8 kg HEIGHT 2020-07-16 09:31:38 167 cm WEIGHT 2020-07-16 09:31:38 67.8 kg HEIGHT 2020-07-16 09:31:38 167 cm WEIGHT 2020-07-16 09:31:38 67.8 kg WEIGHT 2020-07-09 15:16:23 70.4 kg WEIGHT 2020-07-09 15:16:23 70.4 kg WEIGHT 2020-07-02 10:11:00 66.1 kg WEIGHT 2020-07-02 10:11:00 66.1 kg WEIGHT 2020-06-11 15:46:14 58.2 kg WEIGHT 2020-06-11 15:46:14 58.2 kg WEIGHT 2020-06-09 15:50:55 58.2 kg WEIGHT 2020-06-09 15:50:55 58.2 kg WEIGHT 2020-06-09 14:04:00 58.2 kg WEIGHT 2020-06-09 14:04:00 58.2 kg WEIGHT 2020-06-02 11:22:00 63.458 kg WEIGHT 2020-06-02 11:22:00 63.458 kg WEIGHT 2020-06-01 13:52:00 64.2 kg WEIGHT 2020-06-01 13:52:00 64.2 kg HEIGHT 2020-05-24 23:40:00 167 cm WEIGHT 2020-05-24 23:40:00 59.8 kg HEIGHT 2020-05-24 23:40:00 167 cm WEIGHT 2020-05-24 23:40:00 59.8 kg WEIGHT 2020-05-24 15:42:00 61.054 kg WEIGHT 2020-05-24 15:42:00 61.054 kg WEIGHT 2020-05-21 11:29:00 60.2 kg WEIGHT 2020-05-21 11:29:00 60.2 kg HEIGHT 2020-05-12 00:54:00 172.7 cm WEIGHT 2020-05-12 00:54:00 58.6 kg HEIGHT 2020-05-12 00:54:00 172.7 cm WEIGHT 2020-05-12 00:54:00 58.6 kg Systolic blood 2020-09-15 21:25:00 85 mm[Hg] pressure Diastolic blood 2020-09-15 21:25:00 49 mm[Hg] MD Janel albarranson pressure Heart rate 2020-09-15 21:25:00 98 /min MD Silveira son Body temperature 2020-09-15 21:25:00 37.39 Henna MD Kervin cordero Respiratory rate 2020-09-15 21:25:00 18 /min MD Kervin cordero Oxygen saturation in 2020-09-15 21:25:00 99 /min MD Patterson Arterial blood by Pulse oximetry Body weight 2020-09-01 12:25:00 77.9 kg MD Silveira son BMI 2020-09-01 12:25:00 27.93 kg/m2 MD Silveira son Body height 2020-08-11 23:12:00 167 cm MD Raoul vargas Systolic blood 2020-08-11 14:57:00 93 mm[Hg] [facility] Diastolic blood 2020-08-11 14:57:00 60 mm[Hg] [facility] Heart rate 2020-08-11 14:57:00 122 /min [facility] Body temperature 2020-08-11 14:57:00 36.39 Henna [facility] Respiratory rate 2020-08-11 14:57:00 18 /min [facility] [facility] Oxygen saturation in 2020-08-11 14:57:00 97 /min [facility] - Arterial blood by Medical Ce ntelisa Pulse oximetry Body weight 2020-08-08 04:25:00 79.697 kg [facility] BMI 2020-08-08 04:25:00 26.72 kg/m2 [facility] Body height 2020-07-21 09:44:00 172.7 cm [facility] Procedures Procedure Date / Time Performing Source Performed Clinician [id number] 2020-09-04 ENCPL 00:00:00 [id number] 2020-09-04 ENCPL 00:00:00 [id number] 2020-09-04 ENCPL 00:00:00 [id number] 2020-09-04 ENCPL 00:00:00 COMPLETE BLOOD COUNT W/ 2020-09-02 Dev Pennington MD DIFFERENTIAL 10:12:00 MAGNESIUM LEVEL 2020-09-02 Dev Pennington MD 10:12:00 COMPREHENSIVE METABOLIC PANEL 2020-09-02 Dev Pennington MD 10:12:00 PHOSPHORUS LEVEL 2020-09-02 MD Leonardo Cole 10:12:00 Rosalva-Julia Results CBC 2020-09-02 Jen Ramos MD 10:12:00 MANUAL DIFFERENTIAL 2020-09-02 Jen Ramos MD 10:12:00 GLUCOSE LEVEL 2020-09-02 Jen Ramos MD 10:12:00 BLOOD UREA NITROGEN 2020-09-02 Jen Ramos MD 10:12:00 ELECTROLYTE PANEL 2020-09-02 Jen Ramos MD 10:12:00 SERUM CREATININE 2020-09-02 Jen Ramos MD 10:12:00 .GLOMERULAR FILTRATION RATE 2020-09-02 Jen Ramos MD nderson 10:12:00 CALCIUM LEVEL TOTAL 2020-09-02 Jen Ramos MD 10:12:00 ALBUMIN LEVEL 2020-09-02 Jen Ramos MD 10:12:00 ALKALINE PHOSPHATASE 2020-09-02 Jen Ramos MD 10:12:00 ALANINE AMINOTRANSFERASE 2020-09-02 Jen Ramos MD Mauri rson 10:12:00 ASPARTATE AMINOTRANSFERASE 2020-09-02 Jen Ramos MD derson 10:12:00 TOTAL PROTEIN 2020-09-02 Jen Ramos MD 10:12:00 FRACTIONATED BILIRUBIN 2020-09-02 Jen Ramos MD Aaron on 10:12:00 TRANSFUSE RED BLOOD CELLS 2020-09-02 Parth Colmenares MD And erson 02:01:06 TYPE AND SCREEN 2020-09-01 Parth Colmenares MD 16:55:00 ABORH 2020-09-01 Parth Colmenares MD 16:55:00 ANTIBODY SCREEN 2020-09-01 Parth Colmenares MD 16:55:00 CLOT EXPIRATION DATE 2020-09-01 Parth Colmenares MD 16:55:00 TMP INTERPRETATION ANTIBODY 2020-09-01 Parth Colmenares MDon SCREEN NEGATIVE 16:55:00 TMP CROSSMATCH INTERPRETATION 2020-09-01 Parth Colmenares MD 16:55:00 PREPARE RBC 2020-09-01 Parth Colmenares MD 14:44:00 PRBC PRODUCT READY FOR INSURANCE COLLECTOR 2020-09-01 Parth Clomenares 14:44:00 COMPLETE BLOOD COUNT W/ 2020-09-01 Dev Pennington MD Raoul son DIFFERENTIAL 09:16:00 MAGNESIUM LEVEL 2020-09-01 Dev Pennington MD 09:16:00 COMPREHENSIVE METABOLIC PANEL 2020-09-01 Dev Pennington MD 09:16:00 PHOSPHORUS LEVEL 2020-09-01 MD Leonardo Cole 09:16:00 Rosalva-Julia Results CBC 2020-09-01 Jen Ramos MD 09:16:00 MANUAL DIFFERENTIAL 2020-09-01 Jen Ramos MD 09:16:00 GLUCOSE LEVEL 2020-09-01 Jen Ramos MD 09:16:00 BLOOD UREA NITROGEN 2020-09-01 Jen Ramos MD 09:16:00 ELECTROLYTE PANEL 2020-09-01 Jen Ramos MD 09:16:00 SERUM CREATININE 2020-09-01 Jen Ramos MD 09:16:00 .GLOMERULAR FILTRATION RATE 2020-09-01 Jen Ramos MD nderson 09:16:00 CALCIUM LEVEL TOTAL 2020-09-01 Jen Ramos MD 09:16:00 ALBUMIN LEVEL 2020-09-01 Jen Ramos MD 09:16:00 ALKALINE PHOSPHATASE 2020-09-01 Jen Ramos MD 09:16:00 ALANINE AMINOTRANSFERASE 2020-09-01 Jen Ramos MD Mauri rson 09:16:00 ASPARTATE AMINOTRANSFERASE 2020-09-01 Jen Ramos MD derson 09:16:00 TOTAL PROTEIN 2020-09-01 Jen Ramos MD 09:16:00 FRACTIONATED BILIRUBIN 2020-09-01 Jen Ramos MD Aaron on 09:16:00 COMPLETE BLOOD COUNT W/ 2020-08-31 Dev Pennington MD Raoul son DIFFERENTIAL 09:20:00 MAGNESIUM LEVEL 2020-08-31 Dev Pennington MD 09:20:00 COMPREHENSIVE METABOLIC PANEL 2020-08-31 Dev Pennington MD 09:20:00 PHOSPHORUS LEVEL 2020-08-31 MD Leonardo Cole 09:20:00 Rosalva-Julia Results CBC 2020-08-31 Jen Ramos MD 09:20:00 MANUAL DIFFERENTIAL 2020-08-31 Jne Ramos MD 09:20:00 GLUCOSE LEVEL 2020-08-31 Jen Ramos MD 09:20:00 BLOOD UREA NITROGEN 2020-08-31 Jen Ramos MD 09:20:00 ELECTROLYTE PANEL 2020-08-31 Jen Ramos MD 09:20:00 SERUM CREATININE 2020-08-31 Jen Ramos MD 09:20:00 .GLOMERULAR FILTRATION RATE 2020-08-31 Jen Ramos MD ndenilesh 09:20:00 CALCIUM LEVEL TOTAL 2020-08-31 Jen Ramos MD 09:20:00 ALBUMIN LEVEL 2020-08-31 Jen Ramos MD 09:20:00 ALKALINE PHOSPHATASE 2020-08-31 Jen Ramos MD 09:20:00 ALANINE AMINOTRANSFERASE 2020-08-31 Jen Ramose rson 09:20:00 ASPARTATE AMINOTRANSFERASE 2020-08-31 Jen Ramos MD derson 09:20:00 TOTAL PROTEIN 2020-08-31 Jen Ramos MD 09:20:00 FRACTIONATED BILIRUBIN 2020-08-31 Jen Ramos MD Aaron on 09:20:00 COMPLETE BLOOD COUNT W/ 2020-08-30 Dev Pennington MD son DIFFERENTIAL 10:48:00 MAGNESIUM LEVEL 2020-08-30 Dev Pennington MD 10:48:00 COMPREHENSIVE METABOLIC PANEL 2020-08-30 Dev Pennington MD 10:48:00 PHOSPHORUS LEVEL 2020-08-30 MD Leonardo Cole 10:48:00 Rosalva-Julia Results CBC 2020-08-30 Jen Ramos MD 10:48:00 MANUAL DIFFERENTIAL 2020-08-30 Jen Ramos MD 10:48:00 GLUCOSE LEVEL 2020-08-30 Jen Ramos MD 10:48:00 BLOOD UREA NITROGEN 2020-08-30 Jen Ramos MD 10:48:00 ELECTROLYTE PANEL 2020-08-30 Jen Ramos MD 10:48:00 SERUM CREATININE 2020-08-30 Jen Ramos MD 10:48:00 .GLOMERULAR FILTRATION RATE 2020-08-30 Jen Ramos MD 10:48:00 CALCIUM LEVEL TOTAL 2020-08-30 Jen Ramos MD 10:48:00 ALBUMIN LEVEL 2020-08-30 Jen Ramos MD 10:48:00 ALKALINE PHOSPHATASE 2020-08-30 Jen Ramos MD 10:48:00 ALANINE AMINOTRANSFERASE 2020-08-30 Jen Ramos MD rsmichael 10:48:00 ASPARTATE AMINOTRANSFERASE 2020-08-30 Jen Ramos MD 10:48:00 TOTAL PROTEIN 2020-08-30 Jen Ramos MD 10:48:00 FRACTIONATED BILIRUBIN 2020-08-30 Jen Ramos MD on 10:48:00 CT HEAD WO CONTRAST 2020-08-29 MD Aaron Brenner on 21:23:52 Huy COMPLETE BLOOD COUNT W/ 2020-08-29 Dev Penningtoner son DIFFERENTIAL 10:16:00 MAGNESIUM LEVEL 2020-08-29 Dev Pennington MD 10:16:00 COMPREHENSIVE METABOLIC PANEL 2020-08-29 Dev Pennington MD 10:16:00 PHOSPHORUS LEVEL 2020-08-29 MD Leonardo Cole 10:16:00 Rosalva-Julia Results CBC 2020-08-29 Jen Ramos MD 10:16:00 MANUAL DIFFERENTIAL 2020-08-29 Jen Ramos MD 10:16:00 GLUCOSE LEVEL 2020-08-29 Jen Ramos MD 10:16:00 BLOOD UREA NITROGEN 2020-08-29 Jen Ramos MD 10:16:00 ELECTROLYTE PANEL 2020-08-29 Jen Ramos MD 10:16:00 SERUM CREATININE 2020-08-29 Jen Ramos MD 10:16:00 .GLOMERULAR FILTRATION RATE 2020-08-29 Jen Ramos MD nderson 10:16:00 CALCIUM LEVEL TOTAL 2020-08-29 Jen Ramos MD 10:16:00 ALBUMIN LEVEL 2020-08-29 Jen Ramos MD 10:16:00 ALKALINE PHOSPHATASE 2020-08-29 Jen Ramos MD 10:16:00 ALANINE AMINOTRANSFERASE 2020-08-29 Jen Ramos MD rson 10:16:00 ASPARTATE AMINOTRANSFERASE 2020-08-29 Jen Ramos MD 10:16:00 TOTAL PROTEIN 2020-08-29 Jen Ramos MD 10:16:00 FRACTIONATED BILIRUBIN 2020-08-29 Jen Ramos MD on 10:16:00 HEMOGLOBIN 2020-08-29 MD Leonardo Brenner 00:38:00 Huy TRANSFUSE RED BLOOD CELLS 2020-08-28 MD Leonardo Brenner 23:58:39 Huy TYPE AND SCREEN 2020-08-28 MD Leonardo Brenner 15:36:00 Huy ABORH 2020-08-28 MD Leonardo Brenner 15:36:00 Huy ANTIBODY SCREEN 2020-08-28 MD Leonardo Brenner 15:36:00 Huy CLOT EXPIRATION DATE 2020-08-28 MD Jordin Raoul son 15:36:00 Huy TMP CROSSMATCH INTERPRETATION 2020-08-28 MD Leonardo Brenner 15:36:00 Huy PREPARE RBC 2020-08-28 MD Leonardo Brenner 15:15:00 Huy PRBC PRODUCT READY FOR INSURANCE COLLECTOR 2020-08-28 MD Leonardo Brenner 15:15:00 Huy COMPLETE BLOOD COUNT W/ 2020-08-28 [facility] 11:00:00 MAGNESIUM LEVEL 2020-08-28 Dev Pennington MD 11:00:00 COMPREHENSIVE METABOLIC PANEL 2020-08-28 Dev Pennington MD 11:00:00 PHOSPHORUS LEVEL 2020-08-28 MD Leonardo Cole 11:00:00 Rosalva-Julia Results CBC 2020-08-28 Jen Ramos MD 11:00:00 MANUAL DIFFERENTIAL 2020-08-28 Jen Ramos MD 11:00:00 GLUCOSE LEVEL 2020-08-28 Jen Ramos MD 11:00:00 BLOOD UREA NITROGEN 2020-08-28 Jen Ramos MD 11:00:00 ELECTROLYTE PANEL 2020-08-28 Jen Ramos MD 11:00:00 SERUM CREATININE 2020-08-28 Jen Ramos MD 11:00:00 .GLOMERULAR FILTRATION RATE 2020-08-28 Jen Ramos MD 11:00:00 CALCIUM LEVEL TOTAL 2020-08-28 Jen Ramos MD 11:00:00 ALBUMIN LEVEL 2020-08-28 Jen Ramos MD 11:00:00 ALKALINE PHOSPHATASE 2020-08-28 Jen Ramos MD 11:00:00 ALANINE AMINOTRANSFERASE 2020-08-28 Jen Ramos MD Mauri rson 11:00:00 ASPARTATE AMINOTRANSFERASE 2020-08-28 Jen Ramos MD 11:00:00 TOTAL PROTEIN 2020-08-28 Jen Ramos MD 11:00:00 FRACTIONATED BILIRUBIN 2020-08-28 Jen Ramos MD on 11:00:00 COMPLETE BLOOD COUNT W/ 2020-08-27 Dev Pennington MD son DIFFERENTIAL 09:19:00 MAGNESIUM LEVEL 2020-08-27 Dev Pennington MD 09:19:00 COMPREHENSIVE METABOLIC PANEL 2020-08-27 Dev Pennington MD 09:19:00 PHOSPHORUS LEVEL 2020-08-27 MD Leonardo Cole 09:19:00 Rosalva-Julia Results CBC 2020-08-27 Jen Ramos MD 09:19:00 MANUAL DIFFERENTIAL 2020-08-27 Jen Ramos MD 09:19:00 GLUCOSE LEVEL 2020-08-27 Jen Ramos MD 09:19:00 BLOOD UREA NITROGEN 2020-08-27 Jen Ramos MD 09:19:00 ELECTROLYTE PANEL 2020-08-27 Jen Ramos MD 09:19:00 SERUM CREATININE 2020-08-27 Jen Ramos MD 09:19:00 .GLOMERULAR FILTRATION RATE 2020-08-27 Jen Ramos MD nderson 09:19:00 CALCIUM LEVEL TOTAL 2020-08-27 Jen Ramos MD 09:19:00 ALBUMIN LEVEL 2020-08-27 Jen Ramos MD 09:19:00 ALKALINE PHOSPHATASE 2020-08-27 Jen Ramos MD 09:19:00 ALANINE AMINOTRANSFERASE 2020-08-27 Jen Ramos MD rsmichael 09:19:00 ASPARTATE AMINOTRANSFERASE 2020-08-27 Jen Ramos MD 09:19:00 TOTAL PROTEIN 2020-08-27 Jen Ramos MD 09:19:00 FRACTIONATED BILIRUBIN 2020-08-27 Jen Ramos MD on 09:19:00 BLOODCULTURE 2020-08-26 Eddie Knowles MD 23:29:00 BLOODCULTURE 2020-08-26 Eddie Knowles MD 23:16:00 ECHOCARDIOGRAM 2D COMPLETE 2020-08-26 MD Leonardo Brenner 15:00:[address] ABDOMEN PELVIS W CONTRAST 2020-08-26 MD Leonardo Brenner 13:24:01 Huy COMPLETE BLOOD COUNT W/ 2020-08-26 Dev Pennington MD Raoul son DIFFERENTIAL 08:17:00 MAGNESIUM LEVEL 2020-08-26 Dev Pennington MD 08:17:00 COMPREHENSIVE METABOLIC PANEL 2020-08-26 Dev Pennington MD 08:17:00 PHOSPHORUS LEVEL 2020-08-26 MD Leonardo Cole 08:17:00 Rosalva-Julia CREATINE KINASE 2020-08-26 MD Leonardo Brenner 08:17:00 Huy Results CBC 2020-08-26 Jen Ramos MD 08:17:00 MANUAL DIFFERENTIAL 2020-08-26 Jen Ramos MD 08:17:00 GLUCOSE LEVEL 2020-08-26 Jen Ramos MD 08:17:00 BLOOD UREA NITROGEN 2020-08-26 Jen Ramos MD 08:17:00 ELECTROLYTE PANEL 2020-08-26 Jen Ramos MD 08:17:00 SERUM CREATININE 2020-08-26 Jen Ramos MD 08:17:00 .GLOMERULAR FILTRATION RATE 2020-08-26 Jen Ramos MD nderson 08:17:00 CALCIUM LEVEL TOTAL 2020-08-26 Jen Ramos MD 08:17:00 ALBUMIN LEVEL 2020-08-26 Jen Ramos MD 08:17:00 ALKALINE PHOSPHATASE 2020-08-26 Jen Ramos MD 08:17:00 ALANINE AMINOTRANSFERASE 2020-08-26 Jen Ramos MD rson 08:17:00 ASPARTATE AMINOTRANSFERASE 2020-08-26 Jen Ramos MD derson 08:17:00 TOTAL PROTEIN 2020-08-26 Jen Ramos MD 08:17:00 FRACTIONATED BILIRUBIN 2020-08-26 Jen Ramos MD on 08:17:00 CARCINOEMBRYONIC ANTIGEN 2020-08-25 Ilia Almonte MD Mauri rson 16:34:00 Karlyle BLOODCULTURE 2020-08-25 MD Leonardo Brenner 15:22:00 Huy COMPLETE BLOOD COUNT W/ 2020-08-25 Dev Pennington MD Raoul son DIFFERENTIAL 09:39:00 MAGNESIUM LEVEL 2020-08-25 Dev Pennington MD 09:39:00 COMPREHENSIVE METABOLIC PANEL 2020-08-25 Dev Pennington MD 09:39:00 PHOSPHORUS LEVEL 2020-08-25 MD Leonardo Cole 09:39:00 Rosalva-Julia Results CBC 2020-08-25 Jen Ramos MD 09:39:00 MANUAL DIFFERENTIAL 2020-08-25 Jen Ramos MD 09:39:00 GLUCOSE LEVEL 2020-08-25 Jen Ramos MD 09:39:00 BLOOD UREA NITROGEN 2020-08-25 Jen Ramos MD 09:39:00 ELECTROLYTE PANEL 2020-08-25 Jen Ramos MD 09:39:00 SERUM CREATININE 2020-08-25 Jen Ramos MD 09:39:00 .GLOMERULAR FILTRATION RATE 2020-08-25 Jen Ramos MD nderson 09:39:00 CALCIUM LEVEL TOTAL 2020-08-25 Jen Ramos MD 09:39:00 ALBUMIN LEVEL 2020-08-25 Jen Ramos MD 09:39:00 ALKALINE PHOSPHATASE 2020-08-25 Jen Ramos MD 09:39:00 ALANINE AMINOTRANSFERASE 2020-08-25 Jen Ramos MD Mauri rson 09:39:00 ASPARTATE AMINOTRANSFERASE 2020-08-25 Jen Ramos MD derson 09:39:00 TOTAL PROTEIN 2020-08-25 Jen Ramos MD 09:39:00 FRACTIONATED BILIRUBIN 2020-08-25 Jen Ramos MD Aaron on 09:39:00 COMPLETE BLOOD COUNT W/ 2020-08-24 Dev Pennington MD Raoul son DIFFERENTIAL 09:38:00 MAGNESIUM LEVEL 2020-08-24 Dev Pennington MD 09:38:00 COMPREHENSIVE METABOLIC PANEL 2020-08-24 Dev Pennington MD 09:38:00 PHOSPHORUS LEVEL 2020-08-24 MD Leonardo Cole 09:38:00 Rosalva-Julia Results CBC 2020-08-24 Jen Ramos MD 09:38:00 MANUAL DIFFERENTIAL 2020-08-24 Jen Ramos MD 09:38:00 GLUCOSE LEVEL 2020-08-24 Jen Ramos MD 09:38:00 BLOOD UREA NITROGEN 2020-08-24 Jen Ramos MD 09:38:00 ELECTROLYTE PANEL 2020-08-24 Jen Ramos MD 09:38:00 SERUM CREATININE 2020-08-24 Jen Ramos MD 09:38:00 .GLOMERULAR FILTRATION RATE 2020-08-24 Jen Ramos MD nderson 09:38:00 CALCIUM LEVEL TOTAL 2020-08-24 Jen Ramos MD 09:38:00 ALBUMIN LEVEL 2020-08-24 Jen Ramos MD 09:38:00 ALKALINE PHOSPHATASE 2020-08-24 Jen Ramos MD 09:38:00 ALANINE AMINOTRANSFERASE 2020-08-24 Jen Ramos MD Mauri rson 09:38:00 ASPARTATE AMINOTRANSFERASE 2020-08-24 Jen Ramos MD derson 09:38:00 TOTAL PROTEIN 2020-08-24 Jen Ramos MD 09:38:00 FRACTIONATED BILIRUBIN 2020-08-24 Jen Ramos MD Aaron on 09:38:00 BLOODCULTURE 2020-08-24 MD Leonardo Brenner 09:38:00 Huy BLOODCULTURE 2020-08-23 MD Leonardo Brenner 16:50:00 Huy COMPLETE BLOOD COUNT W/ 2020-08-23 Dev Pennington MD Raoul son DIFFERENTIAL 09:59:00 MAGNESIUM LEVEL 2020-08-23 Dev Pennington MD 09:59:00 COMPREHENSIVE METABOLIC PANEL 2020-08-23 Dev Pennington MD 09:59:00 PHOSPHORUS LEVEL 2020-08-23 MD Leonardo Cole 09:59:00 Rosalva-Julia Results CBC 2020-08-23 Jen Ramos MD 09:59:00 MANUAL DIFFERENTIAL 2020-08-23 Jen Ramos MD 09:59:00 GLUCOSE LEVEL 2020-08-23 Jen Ramos MD 09:59:00 BLOOD UREA NITROGEN 2020-08-23 Jen Ramos MD 09:59:00 ELECTROLYTE PANEL 2020-08-23 Jen Ramos MD 09:59:00 SERUM CREATININE 2020-08-23 Jen Ramos MD 09:59:00 .GLOMERULAR FILTRATION RATE 2020-08-23 Jen Ramos MD nderson 09:59:00 CALCIUM LEVEL TOTAL 2020-08-23 Jen Ramos MD 09:59:00 ALBUMIN LEVEL 2020-08-23 Jen Ramos MD 09:59:00 ALKALINE PHOSPHATASE 2020-08-23 Jen Ramos MD 09:59:00 ALANINE AMINOTRANSFERASE 2020-08-23 Jen Ramose rson 09:59:00 ASPARTATE AMINOTRANSFERASE 2020-08-23 Jen Ramos MD derson 09:59:00 TOTAL PROTEIN 2020-08-23 Jen Ramos MD 09:59:00 FRACTIONATED BILIRUBIN 2020-08-23 Jen Ramos MD on 09:59:00 URINALYSIS WITH MICROSCOPIC IF 2020-08-22 Monserrat Cole INDICATED 19:18:00 Rosalva-Julia URINALYSIS MICROSCOPIC 2020-08-22 MD Aaron Cole on 19:18:00 Rosalva-Julia URINE CULTURE 2020-08-22 MD Leonardo Cole 19:18:00 Rosalva-Julia COMPLETE BLOOD COUNT W/ 2020-08-22 Dev Pennington MD son DIFFERENTIAL 09:47:00 MAGNESIUM LEVEL 2020-08-22 Dev Pennington MD 09:47:00 COMPREHENSIVE METABOLIC PANEL 2020-08-22 Dev Pennington MD 09:47:00 PHOSPHORUS LEVEL 2020-08-22 MD Leonardo Cole 09:47:00 Rosalva-Julia Results CBC 2020-08-22 Jen Ramos MD 09:47:00 MANUAL DIFFERENTIAL 2020-08-22 Jen Ramos MD 09:47:00 GLUCOSE LEVEL 2020-08-22 Jen Ramos MD 09:47:00 BLOOD UREA NITROGEN 2020-08-22 Jen Ramos MD 09:47:00 ELECTROLYTE PANEL 2020-08-22 Jen Ramos MD 09:47:00 SERUM CREATININE 2020-08-22 Jen Ramos MD 09:47:00 .GLOMERULAR FILTRATION RATE 2020-08-22 Jen Ramos MD nderson 09:47:00 CALCIUM LEVEL TOTAL 2020-08-22 Jen Ramos MD 09:47:00 ALBUMIN LEVEL 2020-08-22 Jen Ramos MD 09:47:00 ALKALINE PHOSPHATASE 2020-08-22 Jen Ramos MD 09:47:00 ALANINE AMINOTRANSFERASE 2020-08-22 Jen aRmos MD Mauri rson 09:47:00 ASPARTATE AMINOTRANSFERASE 2020-08-22 Jen Ramos MD derson 09:47:00 TOTAL PROTEIN 2020-08-22 Jen Ramos MD 09:47:00 FRACTIONATED BILIRUBIN 2020-08-22 Jen Ramos MD Aaron on 09:47:00 POC GLUCOSE SCREEN 2020-08-22 MD Leonardo Cole 05:32:00 Rosalva-Julia XR ABDOMEN 1 VW PORTABLE 2020-08-21 MD Mally Mauri rson 16:52:04 Rosalva-Julia BASIC METABOLIC PANEL, CALCIUM 2020-08-21 Monserrat Cole IONIZED 14:59:00 Rosalva-Julia GLUCOSE LEVEL 2020-08-21 MD Leonardo Cole 14:59:00 Rosalva-Julia BLOOD UREA NITROGEN 2020-08-21 MD Leonardo Cole 14:59:00 Rosalva-Julia ELECTROLYTE PANEL 2020-08-21 MD Leonardo Cole 14:59:00 Rosalva-Julia SERUM CREATININE 2020-08-21 MD Leonardo Cole 14:59:00 Rosalva-Julia .GLOMERULAR FILTRATION RATE 2020-08-21 MD Kervin Cole nderson 14:59:00 Rosalva-Julia CALCIUM IONIZED, VENOUS 2020-08-21 MD Mally Raoul son 14:59:00 Rosalva-Julia COMPLETE BLOOD COUNT W/ 2020-08-21 Dev Pennington MD Raoulelisa vargas DIFFERENTIAL 09:49:00 MAGNESIUM LEVEL 2020-08-21 Dev Pennington MD 09:49:00 COMPREHENSIVE METABOLIC PANEL 2020-08-21 Dev Pennington MD 09:49:00 PHOSPHORUS LEVEL 2020-08-21 MD Leonardo Cole 09:49:00 Rosalva-Julia Results CBC 2020-08-21 Jen Ramos MD 09:49:00 MANUAL DIFFERENTIAL 2020-08-21 Jen Ramos MD 09:49:00 GLUCOSE LEVEL 2020-08-21 Jen Ramos MD 09:49:00 BLOOD UREA NITROGEN 2020-08-21 Jen Ramos MD 09:49:00 ELECTROLYTE PANEL 2020-08-21 Jen Ramos MD 09:49:00 SERUM CREATININE 2020-08-21 Jen Ramos MD 09:49:00 .GLOMERULAR FILTRATION RATE 2020-08-21 Jen Ramos MD nderson 09:49:00 CALCIUM LEVEL TOTAL 2020-08-21 Jen Ramos MD 09:49:00 ALBUMIN LEVEL 2020-08-21 Jen Ramos MD 09:49:00 ALKALINE PHOSPHATASE 2020-08-21 Jen Ramos MD 09:49:00 ALANINE AMINOTRANSFERASE 2020-08-21 Jen Ramos MD Mauri rson 09:49:00 ASPARTATE AMINOTRANSFERASE 2020-08-21 Jen Ramos MD An derson 09:49:00 TOTAL PROTEIN 2020-08-21 Jen Ramos MD 09:49:00 FRACTIONATED BILIRUBIN 2020-08-21 Jen Ramos MD Aaron on 09:49:00 TRANSFUSE RED BLOOD CELLS 2020-08-20 Latricia Fuentes MD And erson 20:08:51 TYPE AND SCREEN 2020-08-20 Latricia Fuentes MD 14:29:00 ABORH 2020-08-20 Latricia Fuentes MD 14:29:00 ANTIBODY SCREEN 2020-08-20 Latricia Fuentes MD 14:29:00 TMP INTERPRETATION ANTIBODY 2020-08-20 Latricia Fuentes MD nderson SCREEN NEGATIVE 14:29:00 CLOT EXPIRATION DATE 2020-08-20 Latricia Fuentes MD 14:29:00 PREPARE RBC 2020-08-20 Latricia Fuentes MD 11:55:00 PRBC PRODUCT READY FOR INSURANCE COLLECTOR 2020-08-20 Latricia Fuentes 11:55:00 COMPLETE BLOOD COUNT W/ 2020-08-20 Dev Pennington MD Raoul son DIFFERENTIAL 09:51:00 MAGNESIUM LEVEL 2020-08-20 Dev Pennington MD 09:51:00 COMPREHENSIVE METABOLIC PANEL 2020-08-20 Dev Pennington MD 09:51:00 PHOSPHORUS LEVEL 2020-08-20 MD Leonardo Cole 09:51:00 Rosalva-Julia Results CBC 2020-08-20 Jen Ramos MD 09:51:00 MANUAL DIFFERENTIAL 2020-08-20 Jen Ramos MD 09:51:00 GLUCOSE LEVEL 2020-08-20 Jen Ramos MD 09:51:00 BLOOD UREA NITROGEN 2020-08-20 Jen Ramos MD 09:51:00 ELECTROLYTE PANEL 2020-08-20 Jen Ramos MD 09:51:00 SERUM CREATININE 2020-08-20 Jen Ramos MD 09:51:00 .GLOMERULAR FILTRATION RATE 2020-08-20 Jen Ramos MD nderson 09:51:00 CALCIUM LEVEL TOTAL 2020-08-20 Jen Ramos MD 09:51:00 ALBUMIN LEVEL 2020-08-20 Jen Ramos MD 09:51:00 ALKALINE PHOSPHATASE 2020-08-20 Jen Ramos MD 09:51:00 ALANINE AMINOTRANSFERASE 2020-08-20 Jen Ramose rson 09:51:00 ASPARTATE AMINOTRANSFERASE 2020-08-20 Jen Ramos MD derson 09:51:00 TOTAL PROTEIN 2020-08-20 Jen Ramos MD 09:51:00 FRACTIONATED BILIRUBIN 2020-08-20 Jen Ramos MD Aaron on 09:51:00 COMPLETE BLOOD COUNT W/ 2020-08-19 Dev Pennington MD son DIFFERENTIAL 08:56:00 MAGNESIUM LEVEL 2020-08-19 Dev Pennington MD 08:56:00 COMPREHENSIVE METABOLIC PANEL 2020-08-19 Dev Pennington MD 08:56:00 PHOSPHORUS LEVEL 2020-08-19 MD Leonardo Cole 08:56:00 Rosalva-Julia Results CBC 2020-08-19 Jen Ramos MD 08:56:00 MANUAL DIFFERENTIAL 2020-08-19 Jen Ramos MD 08:56:00 GLUCOSE LEVEL 2020-08-19 Jen Ramos MD 08:56:00 BLOOD UREA NITROGEN 2020-08-19 Jen Ramos MD 08:56:00 ELECTROLYTE PANEL 2020-08-19 Jen Ramos MD 08:56:00 SERUM CREATININE 2020-08-19 Jen Ramos MD 08:56:00 .GLOMERULAR FILTRATION RATE 2020-08-19 Jen Ramos MD ndersmichael 08:56:00 CALCIUM LEVEL TOTAL 2020-08-19 Jen Ramos MD 08:56:00 ALBUMIN LEVEL 2020-08-19 Jen Ramos MD 08:56:00 ALKALINE PHOSPHATASE 2020-08-19 Jen Ramos MD 08:56:00 ALANINE AMINOTRANSFERASE 2020-08-19 Jen Ramos MD rson 08:56:00 ASPARTATE AMINOTRANSFERASE 2020-08-19 Jen Ramos MD derson 08:56:00 TOTAL PROTEIN 2020-08-19 Jen Ramos MD 08:56:00 FRACTIONATED BILIRUBIN 2020-08-19 Jen Ramos MD Aaron on 08:56:00 COMPLETE BLOOD COUNT W/ 2020-08-18 Dev Pennington MD son DIFFERENTIAL 08:38:00 MAGNESIUM LEVEL 2020-08-18 Dev Pennington MD 08:38:00 COMPREHENSIVE METABOLIC PANEL 2020-08-18 Dev Pennington MD 08:38:00 PHOSPHORUS LEVEL 2020-08-18 MD Leonardo Cole 08:38:00 Rosalva-Julia Results CBC 2020-08-18 Jen Ramos MD 08:38:00 MANUAL DIFFERENTIAL 2020-08-18 Jen Ramos MD 08:38:00 GLUCOSE LEVEL 2020-08-18 Jen Ramos MD 08:38:00 BLOOD UREA NITROGEN 2020-08-18 Jen Ramos MD 08:38:00 ELECTROLYTE PANEL 2020-08-18 Jen Ramos MD 08:38:00 SERUM CREATININE 2020-08-18 Jen Ramos MD 08:38:00 .GLOMERULAR FILTRATION RATE 2020-08-18 Jen Ramos MD ndersmichael 08:38:00 CALCIUM LEVEL TOTAL 2020-08-18 Jen Ramos MD 08:38:00 ALBUMIN LEVEL 2020-08-18 Jen Ramos MD 08:38:00 ALKALINE PHOSPHATASE 2020-08-18 Jen Ramos MD 08:38:00 ALANINE AMINOTRANSFERASE 2020-08-18 Jen Ramos MD rson 08:38:00 ASPARTATE AMINOTRANSFERASE 2020-08-18 Jen Ramos MD derson 08:38:00 TOTAL PROTEIN 2020-08-18 Jen Ramos MD 08:38:00 FRACTIONATED BILIRUBIN 2020-08-18 Jen Ramos MD on 08:38:00 IR EXCHANGE OF BILIARY DRAINAGE 2020-08-17 Dillan Taylor MD CATHETER 21:26:01 ELECTROLYTE PANEL 2020-08-17 Latricia Fuentes MD 16:20:00 HEMOGLOBIN 2020-08-17 Latricia Fuentes MD 16:20:00 TYPE AND SCREEN 2020-08-17 Patricia Umanzor MD 10:35:00 ABORH 2020-08-17 Patricia Umanzor MD 10:35:00 ANTIBODY SCREEN 2020-08-17 Patricia Umanzor MD 10:35:00 TMP INTERPRETATION ANTIBODY 2020-08-17 Patricia Umanzor MD SCREEN NEGATIVE 10:35:00 CLOT EXPIRATION DATE 2020-08-17 Patricia Umanzor MD on 10:35:00 TMP CROSSMATCH INTERPRETATION 2020-08-17 Patricia Umanzor MD 10:35:00 PROTHROMBIN TIME 2020-08-17 Latricia Fuentes MD 08:29:00 COMPLETE BLOOD COUNT W/ 2020-08-17 Dev Pennington MD son DIFFERENTIAL 08:29:00 MAGNESIUM LEVEL 2020-08-17 Dev Pennington MD 08:29:00 COMPREHENSIVE METABOLIC PANEL 2020-08-17 Dev Pennington MD 08:29:00 PHOSPHORUS LEVEL 2020-08-17 MD Leonardo Cole 08:29:00 Rosalva-Julia Results CBC 2020-08-17 Jen Ramos MD 08:29:00 MANUAL DIFFERENTIAL 2020-08-17 Jen Ramos MD 08:29:00 GLUCOSE LEVEL 2020-08-17 Jen Ramos MD 08:29:00 BLOOD UREA NITROGEN 2020-08-17 Jen Ramos MD 08:29:00 ELECTROLYTE PANEL 2020-08-17 Jen Ramos MD 08:29:00 SERUM CREATININE 2020-08-17 Jen Ramos MD 08:29:00 .GLOMERULAR FILTRATION RATE 2020-08-17 Jen Ramos MD nderson 08:29:00 CALCIUM LEVEL TOTAL 2020-08-17 Jen Ramos MD 08:29:00 ALBUMIN LEVEL 2020-08-17 Jen Ramos MD 08:29:00 ALKALINE PHOSPHATASE 2020-08-17 Jen Ramos MD 08:29:00 ALANINE AMINOTRANSFERASE 2020-08-17 Jen Ramos MD Mauri rson 08:29:00 ASPARTATE AMINOTRANSFERASE 2020-08-17 Jen Ramos MD derson 08:29:00 TOTAL PROTEIN 2020-08-17 Jen Ramos MD 08:29:00 FRACTIONATED BILIRUBIN 2020-08-17 Jen Ramos MD on 08:29:00 ELECTROLYTE PANEL 2020-08-16 Latricia Fuentes MD 22:58:00 PROTHROMBIN TIME 2020-08-16 Sherice Gonzalez MD 16:13:00 COMPLETE BLOOD COUNT W/ 2020-08-16 Dev Pennington MD son DIFFERENTIAL 06:46:00 MAGNESIUM LEVEL 2020-08-16 Dev Pennington MD 06:46:00 COMPREHENSIVE METABOLIC PANEL 2020-08-16 Dev Pennington MD 06:46:00 PHOSPHORUS LEVEL 2020-08-16 MD Leonardo Cole 06:46:00 Rosalva-Julia Results CBC 2020-08-16 Jen Ramos MD 06:46:00 MANUAL DIFFERENTIAL 2020-08-16 Jen Ramos MD 06:46:00 GLUCOSE LEVEL 2020-08-16 Jen Ramos MD 06:46:00 BLOOD UREA NITROGEN 2020-08-16 Jen Ramos MD 06:46:00 ELECTROLYTE PANEL 2020-08-16 Jen Ramos MD 06:46:00 SERUM CREATININE 2020-08-16 Jen Ramos MD 06:46:00 .GLOMERULAR FILTRATION RATE 2020-08-16 Jen Ramos MD nderson 06:46:00 CALCIUM LEVEL TOTAL 2020-08-16 Jen Ramos MD 06:46:00 ALBUMIN LEVEL 2020-08-16 Jen Ramos MD 06:46:00 ALKALINE PHOSPHATASE 2020-08-16 Jen Ramos MD 06:46:00 ALANINE AMINOTRANSFERASE 2020-08-16 Jen Ramos MD rson 06:46:00 ASPARTATE AMINOTRANSFERASE 2020-08-16 Jen Ramos MDson 06:46:00 TOTAL PROTEIN 2020-08-16 Jen Ramos MD 06:46:00 FRACTIONATED BILIRUBIN 2020-08-16 Jen Ramos MD on 06:46:00 OSMOLALITY URINE 2020-08-15 Latricia Fuentes MD 13:40:00 COMPLETE BLOOD COUNT W/ 2020-08-15 Dev Pennington MD son DIFFERENTIAL 08:12:00 MAGNESIUM LEVEL 2020-08-15 Dev Pennington MD 08:12:00 COMPREHENSIVE METABOLIC PANEL 2020-08-15 Dev Pennington MD 08:12:00 PHOSPHORUS LEVEL 2020-08-15 MD Leonardo Cole 08:12:00 Rosalva-Julia Results CBC 2020-08-15 Jen Ramos MD 08:12:00 MANUAL DIFFERENTIAL 2020-08-15 Jen Ramos MD 08:12:00 GLUCOSE LEVEL 2020-08-15 Jen Ramos MD 08:12:00 BLOOD UREA NITROGEN 2020-08-15 Jen Ramos MD 08:12:00 ELECTROLYTE PANEL 2020-08-15 Jen Ramos MD 08:12:00 SERUM CREATININE 2020-08-15 Jen Ramos MD 08:12:00 .GLOMERULAR FILTRATION RATE 2020-08-15 Jen Ramos MD nderson 08:12:00 CALCIUM LEVEL TOTAL 2020-08-15 Jen Ramos MD 08:12:00 ALBUMIN LEVEL 2020-08-15 Jen Ramos MD 08:12:00 ALKALINE PHOSPHATASE 2020-08-15 Jen Ramos MD 08:12:00 ALANINE AMINOTRANSFERASE 2020-08-15 Jen Ramos MD rson 08:12:00 ASPARTATE AMINOTRANSFERASE 2020-08-15 Jen Ramos MD 08:12:00 TOTAL PROTEIN 2020-08-15 Jen Ramos MD 08:12:00 FRACTIONATED BILIRUBIN 2020-08-15 Jen Ramos MD on 08:12:00 SODIUM URINE 2020-08-14 Rachael Gaston MD 08:05:00 COMPLETE BLOOD COUNT W/ 2020-08-14 Dev Pennington MD Raoul son DIFFERENTIAL 08:05:00 MAGNESIUM LEVEL 2020-08-14 Dev Pennington MD 08:05:00 COMPREHENSIVE METABOLIC PANEL 2020-08-14 Dev Pennington MD 08:05:00 PHOSPHORUS LEVEL 2020-08-14 MD Leonardo Cole 08:05:00 Rosalva-Julia Results CBC 2020-08-14 Jen Ramos MD 08:05:00 MANUAL DIFFERENTIAL 2020-08-14 Jen Ramos MD 08:05:00 GLUCOSE LEVEL 2020-08-14 Jen Ramos MD 08:05:00 BLOOD UREA NITROGEN 2020-08-14 Jen Ramos MD 08:05:00 ELECTROLYTE PANEL 2020-08-14 Jen Ramos MD 08:05:00 SERUM CREATININE 2020-08-14 Jen Ramos MD 08:05:00 .GLOMERULAR FILTRATION RATE 2020-08-14 Jen Ramos MD ndersmichael 08:05:00 CALCIUM LEVEL TOTAL 2020-08-14 Jen Ramos MD 08:05:00 ALBUMIN LEVEL 2020-08-14 Jen Ramos MD 08:05:00 ALKALINE PHOSPHATASE 2020-08-14 Jen Ramos MD 08:05:00 ALANINE AMINOTRANSFERASE 2020-08-14 Jen Ramose rson 08:05:00 ASPARTATE AMINOTRANSFERASE 2020-08-14 Jen Ramos MD derson 08:05:00 TOTAL PROTEIN 2020-08-14 Jen Ramos MD 08:05:00 FRACTIONATED BILIRUBIN 2020-08-14 Jen Ramos MD Aaron on 08:05:00 SODIUM URINE 2020-08-13 MD Leonardo Cole 21:16:00 Rosalva-Julia COMPLETE BLOOD COUNT W/ 2020-08-13 Dev Pennington MD Raoul son DIFFERENTIAL 08:13:00 MAGNESIUM LEVEL 2020-08-13 Dev Pennington MD 08:13:00 COMPREHENSIVE METABOLIC PANEL 2020-08-13 Dev Pennington MD 08:13:00 PHOSPHORUS LEVEL 2020-08-13 MD Leonardo Cole 08:13:00 Rosalva-Julia Results CBC 2020-08-13 Jen Ramos MD 08:13:00 MANUAL DIFFERENTIAL 2020-08-13 Jen Ramos MD 08:13:00 GLUCOSE LEVEL 2020-08-13 Jen Ramos MD 08:13:00 BLOOD UREA NITROGEN 2020-08-13 Jen Ramos MD 08:13:00 ELECTROLYTE PANEL 2020-08-13 Jen Ramos MD 08:13:00 SERUM CREATININE 2020-08-13 Jen Ramos MD 08:13:00 .GLOMERULAR FILTRATION RATE 2020-08-13 Jen Ramos MD nderson 08:13:00 CALCIUM LEVEL TOTAL 2020-08-13 Jen Ramos MD 08:13:00 ALBUMIN LEVEL 2020-08-13 Jen Ramos MD 08:13:00 ALKALINE PHOSPHATASE 2020-08-13 Jen Ramos MD 08:13:00 ALANINE AMINOTRANSFERASE 2020-08-13 Jen Ramose rson 08:13:00 ASPARTATE AMINOTRANSFERASE 2020-08-13 Jen Ramos MD derson 08:13:00 TOTAL PROTEIN 2020-08-13 Jen Ramos MD 08:13:00 FRACTIONATED BILIRUBIN 2020-08-13 Jen Ramos MD Aaron on 08:13:00 CT ABDOMEN PELVIS W CONTRAST 2020-08-13 MD Leonardo Cole 03:04:08 Rosalva-Julia SERUM CREATININE 2020-08-12 Rachael Gaston MD 14:17:00 .GLOMERULAR FILTRATION RATE 2020-08-12 Rachael Gaston MD 14:17:00 CALCIUM IONIZED, VENOUS 2020-08-12 Rachael Gastone rson 14:17:00 BASIC METABOLIC PANEL, CALCIUM 2020-08-12 Rachael Gaston MD IONIZED 14:17:00 OSMOLALITY 2020-08-12 Rachael Gaston MD 14:17:00 HEMOGLOBIN 2020-08-12 MD Leonardo Cole 14:17:00 [facility] HEMATOCRIT 2020-08-12 MD Leonardo Cole 14:17:00 Rosalva-Julia GLUCOSE LEVEL 2020-08-12 Rachael Gaston MD 14:17:00 BLOOD UREA NITROGEN 2020-08-12 Rachael Gaston MD 14:17:00 ELECTROLYTE PANEL 2020-08-12 Rachael Gaston MD 14:17:00 BLOODCULTURE 2020-08-12 Dev Pennington MD 05:58:00 COMPLETE BLOOD COUNT W/ 2020-08-12 Dev Pennington MD Raoul son DIFFERENTIAL 05:58:00 MAGNESIUM LEVEL 2020-08-12 Dev Pennington MD 05:58:00 COMPREHENSIVE METABOLIC PANEL 2020-08-12 Dev Pennington MD 05:58:00 COMPLETE BLOOD COUNT W/ INDICES 2020-08-12 Dev Pennington MD 05:58:00 COMPREHENSIVE METABOLIC PANEL 2020-08-12 Dev Pennington MD 05:58:00 PROTHROMBIN TIME 2020-08-12 Dev Pennington MD 05:58:00 GLUCOSE LEVEL 2020-08-12 Jen Ramos MD 05:58:00 BLOOD UREA NITROGEN 2020-08-12 Jen Ramos MD 05:58:00 ELECTROLYTE PANEL 2020-08-12 Jen Ramos MD 05:58:00 SERUM CREATININE 2020-08-12 Jen Ramos MD 05:58:00 .GLOMERULAR FILTRATION RATE 2020-08-12 Jen Ramos MD nderson 05:58:00 CALCIUM LEVEL TOTAL 2020-08-12 Jen Ramos MD 05:58:00 ALBUMIN LEVEL 2020-08-12 Jen Ramos MD 05:58:00 ALKALINE PHOSPHATASE 2020-08-12 Jen Ramos MD 05:58:00 ALANINE AMINOTRANSFERASE 2020-08-12 Jen Ramose rson 05:58:00 ASPARTATE AMINOTRANSFERASE 2020-08-12 Jen Ramos MD derson 05:58:00 TOTAL PROTEIN 2020-08-12 Jen Ramos MD 05:58:00 FRACTIONATED BILIRUBIN 2020-08-12 Jen Ramos MD on 05:58:00 Results CBC 2020-08-12 Jen Ramos MD 05:58:00 MANUAL DIFFERENTIAL 2020-08-12 Jen Ramos MD 05:58:00 XR CHEST 1 VW PORTABLE 2020-08-12 Rachael Gaston MD Raoul son 04:00:58 EKG, 12-LEAD (PORTABLE) 2020-08-12 Dev Pennington MD Raoul son 00:00:00 INFLUENZA A/B + COVID-19 2020-08-11 Javed Dennison MD Mauri rson ASYMPTOMATIC-L 23:17:00 POCT-GLUCOSE METER 2020-08-[address] [facility] - 10:43:00 [facility] NM GI BLEED STUDY 2020-08-[address] [facility] - 09:06:00 [facility] XR CHEST 1 VIEW PORTABLE / 2020-08-11 Kristina Romero [facility] 06:57:00 [facility] ECG 12-LEAD 2020-08-[address] [facility] - 06:36:03 [facility] CBC (HEMOGRAM ONLY) 2020-08-[address] [facility] - 03:50:00 [facility] APTT 2020-08-[address] [facility] - 03:50:00 [facility] PROTHROMBIN TIME/INR 2020-08-[address] [facility] - 03:50:00 [facility] BASIC METABOLIC PANEL (7) 2020-08-[address] [facility] - 03:50:00 [facility] MAGNESIUM 2020-08-11 Credmarilu, Brandon [facility] - 03:50:00 [facility] PHOSPHORUS 2020-08-11 Credmarilu Brandon [facility] - 03:50:00 [facility] CBC (HEMOGRAM ONLY) 2020-08-10 Masha-Smart, Simah [facility] - 21:28:00 [facility] ECG 12-LEAD 2020-08-10 Marco Antonio Smith [facility] - 12:28:21 [facility] XR CHEST 1 VIEW PORTABLE / 2020-08-10 Kristina Romero [facility] 07:25:00 [facility] CBC (HEMOGRAM ONLY) 2020-08-[address] [facility] - 05:18:00 [facility] APTT 2020-08-[address] [facility] - 05:18:00 [facility] PROTHROMBIN TIME/INR 2020-08-[address] [facility] - 05:18:00 [facility] BASIC METABOLIC PANEL (7) 2020-08-[address] [facility] - 05:18:00 [facility] MAGNESIUM 2020-08-10 Creden, Brandon [facility] - 05:18:00 [facility] PHOSPHORUS 2020-08-10 Praveenen, Brandon [facility] - 05:18:00 [facility] PREPARE LEUKO-REDUCED RBC 2020-08-[address] [facility] - 23:54:00 [facility] THROMBOELASTOGRAPH (TEG) 2020-08-09 Masha-SmartOsmanylexi [facility] - 12:12:00 [facility] HEMOGLOBIN AND HEMATOCRIT 2020-08-[address] [facility] - 12:12:00 [facility] Chamindika XR CHEST 1 VIEW PORTABLE / 2020-08-09 Nick Kristina [facility] 08:27:00 [facility] CBC (HEMOGRAM ONLY) 2020-08-[address] [facility] - 04:58:00 [facility] APTT 2020-08-[address] [facility] - 04:58:00 [facility] PROTHROMBIN TIME/INR 2020-08-[address] [facility] - 04:58:00 [facility] BASIC METABOLIC PANEL (7) 2020-08-[address] [facility] - 04:58:00 [facility] MAGNESIUM 2020-08-09 Creden, Brandon [facility] - 04:58:00 [facility] PHOSPHORUS 2020-08-09 Praveenen, Brandon [facility] - 04:58:00 [facility] HEPATIC FUNCTION PANEL 2020-08-09 Mattie Brandon [facility] - 04:58:00 [facility] TRANSFUSE LEUKO-REDUCED RED BLOOD 2020-08-[address] [facility] - CELLS 01:16:12 [facility] HEMOGLOBIN AND HEMATOCRIT 2020-08-[address] [facility] - 15:58:00 [facility] CBC (HEMOGRAM ONLY) 2020-08-[address] [facility] - 08:30:00 [facility] APTT 2020-08-[address] [facility] - 08:30:00 [facility] PROTHROMBIN TIME/INR 2020-08-[address] [facility] - 08:30:00 [facility] BASIC METABOLIC PANEL (7) 2020-08-08 Creden, Brandon [facility] - 08:30:00 [facility] MAGNESIUM 2020-08-[address] [facility] - 08:30:00 [facility] PHOSPHORUS 2020-08-[address] [facility] - 08:30:00 [facility] HEPATIC FUNCTION PANEL 2020-08-[address] [facility] - 08:30:00 [facility] XR CHEST 1 VIEW PORTABLE / 2020-08-08 Kristina Romero [facility] 08:08:00 [facility] PREPARE LEUKO-REDUCED RBC 2020-08-[address] [facility] - 23:54:00 [facility] CBC W/PLT COUNT & AUTO 2020-08-07 Oh Patrick [facility] DIFFERENTIAL 15:01:00 [facility] XR CHEST 1 VIEW PORTABLE / 2020-08-07 Kristina Romero [facility] 08:25:00 [facility] CBC (HEMOGRAM ONLY) 2020-08-[address] [facility] - 05:09:00 [facility] APTT 2020-08-[address] [facility] - 05:09:00 [facility] PROTHROMBIN TIME/INR 2020-08-[address] [facility] - 05:09:00 [facility] BASIC METABOLIC PANEL (7) 2020-08-[address] [facility] - 05:09:00 [facility] MAGNESIUM 2020-08-[address] [facility] - 05:09:00 [facility] PHOSPHORUS 2020-08-[address] [facility] - 05:09:00 [facility] HEPATIC FUNCTION PANEL 2020-08-[address] - 05:09:00 [facility] HEMOGLOBIN AND HEMATOCRIT 2020-08-[address] [facility] - 18:12:00 [facility] PREPARE LEUKO-REDUCED RBC 2020-08-[address] [facility] - 17:01:00 [facility] TRANSFUSE LEUKO-REDUCED RED BLOOD 2020-08-[address] [facility] - CELLS 15:28:18 [facility] TYPE AND SCREEN, AUTOMATED 2020-08-06 Oh Patrick [facility] - 10:24:00 [facility] HEMOGLOBIN AND HEMATOCRIT 2020-08-06 Oh Patrick [facility] - 09:58:00 [facility] POCT-GLUCOSE METER 2020-08-[address] [facility] - 08:22:00 [facility] XR CHEST 1 VIEW PORTABLE / 2020-08-06 [facility] 07:04:00 [facility] SARS-COV2/RT-PCR (HS & REF 2020-08-06 [facility] 05:34:00 [facility] CBC (HEMOGRAM ONLY) 2020-08-[address] [facility] - 05:33:00 [facility] APTT 2020-08-[address] [facility] - 05:33:00 [facility] PROTHROMBIN TIME/INR 2020-08-[address] [facility] - 05:33:00 [facility] BASIC METABOLIC PANEL (7) 2020-08-[address] [facility] - 05:33:00 [facility] MAGNESIUM 2020-08-[address] [facility] - 05:33:00 [facility] PHOSPHORUS 2020-08-06 Brandon Phelps [facility] - 05:33:00 [facility] HEPATIC FUNCTION PANEL 2020-08-[address] [facility] - 05:33:00 [facility] POCT-GLUCOSE METER 2020-08-[address] [facility] - 21:18:00 [facility] POCT-GLUCOSE METER 2020-08-[address] [facility] - 16:54:00 [facility] POCT-GLUCOSE METER 2020-08-[address] [facility] - 11:40:00 [facility] POCT-GLUCOSE METER 2020-08-[address] [facility] [facility] - 07:18:00 [facility] XR CHEST 1 VIEW PORTABLE / 2020-08-05 Kristina Romero [facility] 06:55:00 [facility] CBC (HEMOGRAM ONLY) 2020-08-[address] [facility] - 04:54:00 [facility] APTT 2020-08-[address] [facility] - 04:54:00 [facility] PROTHROMBIN TIME/INR 2020-08-05 Kristina Romero [facility] - 04:54:00 [facility] BASIC METABOLIC PANEL (7) 2020-08-05 [address] [facility] - 04:54:00 [facility] MAGNESIUM 2020-08-[address] [facility] - 04:54:00 [facility] PHOSPHORUS 2020-08-[address] [facility] - 04:54:00 [facility] HEPATIC FUNCTION PANEL 2020-08-[address] [facility] - 04:54:00 [facility] POCT-GLUCOSE METER 2020-08-[address] [facility] - 21:07:00 [facility] POCT-GLUCOSE METER 2020-08-[address] [facility] - 17:03:00 [facility] 2D ECHO W/ DOPPLER (CW/PW/COLOR) 2020-08-04 [facility] - 11:54:08 [facility] POCT-GLUCOSE METER 2020-08-[address] [facility] - 11:02:00 [facility] POCT-GLUCOSE METER 2020-08-[address] [facility] - 07:57:00 [facility] XR CHEST 1 VIEW PORTABLE / 2020-08-04 Kristina Romero [facility] 06:09:00 [facility] CBC (HEMOGRAM ONLY) 2020-08-[address] [facility] - 03:55:00 [facility] APTT 2020-08-[address] [facility] - 03:55:00 [facility] PROTHROMBIN TIME/INR 2020-08-[address] [facility] - 03:55:00 [facility] BASIC METABOLIC PANEL (7) 2020-08-[address] [facility] - 03:55:00 [facility] MAGNESIUM 2020-08-04 Creden Brandon [facility] - 03:55:00 [facility] PHOSPHORUS 2020-08-[address] - 03:55:00 [facility] HEPATIC FUNCTION PANEL 2020-08-04 Praveenen Brandon [facility] - 03:55:00 [facility] POCT-GLUCOSE METER 2020-08-[address] [facility] - 21:04:00 [facility] POCT-GLUCOSE METER 2020-08-[address] [facility] - 16:53:00 [facility] POCT-GLUCOSE METER 2020-08-[address] [facility] - 11:35:00 [facility] XR CHEST 1 VIEW PORTABLE / 2020-08-03 Kristina Romero [facility] 06:40:00 [facility] CBC (HEMOGRAM ONLY) 2020-08-[address] [facility] - 03:37:00 [facility] APTT 2020-08-[address] [facility] - 03:37:00 [facility] PROTHROMBIN TIME/INR 2020-08-[address] [facility] - 03:37:00 [facility] BASIC METABOLIC PANEL (7) 2020-08-[address] [facility] - 03:37:00 [facility] MAGNESIUM 2020-08-[address] [facility] - 03:37:00 [facility] PHOSPHORUS 2020-08-03 Credmarilu, Brandon [facility] - 03:37:00 [facility] HEPATIC FUNCTION PANEL 2020-08-[address] [facility] - 03:37:00 [facility] POCT-GLUCOSE METER 2020-08-[address] [facility] - 21:12:00 [facility] XR CHEST 1 VIEW PORTABLE / 2020-08-02 Roni Blum [facility] 18:45:00 [facility] POCT-GLUCOSE METER 2020-08-[address] [facility] - 16:10:00 [facility] IR T-TUBE CHOLANGIOGRAM 2020-08-[address] [address] [facility] - 14:05:00 [facility] POCT-GLUCOSE METER 2020-08-[address] [facility] - 11:44:00 [facility] POCT-GLUCOSE METER 2020-08-[address] [facility] - 08:01:00 [facility] XR CHEST 1 VIEW PORTABLE / 2020-08-02 Kristina Romero [facility] 06:51:00 [facility] CBC (HEMOGRAM ONLY) 2020-08-[address] [facility] - 04:45:00 [facility] APTT 2020-08-[address] [facility] - 04:45:00 [facility] PROTHROMBIN TIME/INR 2020-08-[address] [facility] - 04:45:00 [facility] BASIC METABOLIC PANEL (7) 2020-08-[address] [facility] - 04:45:00 [facility] MAGNESIUM 2020-08-02 Creden, Brandon [facility] - 04:45:00 [facility] PHOSPHORUS 2020-08-[address] [facility] - 04:45:00 [facility] HEPATIC FUNCTION PANEL 2020-08-[address] [facility] - 04:45:00 [facility] POCT-GLUCOSE METER 2020-08-[address] [facility] - 21:22:00 [facility] POCT-GLUCOSE METER 2020-08-[address] [facility] - 17:01:00 [facility] POCT-GLUCOSE METER 2020-08-[address] [facility] - 11:59:00 [facility] POCT-GLUCOSE METER 2020-08-[address] [facility] - 07:16:00 [facility] CBC (HEMOGRAM ONLY) 2020-08-[address] [facility] - 04:34:00 [facility] APTT 2020-08-[address] [facility] - 04:34:00 [facility] PROTHROMBIN TIME/INR 2020-08-[address] [facility] - 04:34:00 [facility] BASIC METABOLIC PANEL (7) 2020-08-[address] [facility] - 04:34:00 [facility] MAGNESIUM 2020-08-[address] [facility] - 04:34:00 [facility] PHOSPHORUS 2020-08-[address] - 04:34:00 [facility] HEPATIC FUNCTION PANEL 2020-08-[address] [facility] - 04:34:00 [facility] XR CHEST 1 VIEW PORTABLE / 2020-08-01 Kristina Romero [facility] 04:26:00 [facility] POCT-GLUCOSE METER 2020-07-[address] [facility] - 21:31:00 [facility] POCT-GLUCOSE METER 2020-07-[address] [facility] - 17:37:00 [facility] POCT-GLUCOSE METER 2020-07-[address] [facility] - 12:14:00 [facility] POCT-GLUCOSE METER 2020-07-[address] [facility] - 08:24:00 [facility] XR CHEST 1 VIEW PORTABLE / 2020-07-31 Kristina Romero [facility] 06:45:00 [facility] CBC (HEMOGRAM ONLY) 2020-07-[address] [facility] - 06:10:00 [facility] APTT 2020-07-[address] [facility] - 06:10:00 [facility] PROTHROMBIN TIME/INR 2020-07-[address] [facility] - 06:10:00 [facility] BASIC METABOLIC PANEL (7) 2020-07-[address] [facility] - 06:10:00 [facility] MAGNESIUM 2020-07-[address] [facility] - 06:10:00 [facility] PHOSPHORUS 2020-07-31 Mattie, Brandon [facility] - 06:10:00 [facility] HEPATIC FUNCTION PANEL 2020-07-[address] [facility] - 06:10:00 [facility] POCT-GLUCOSE METER 2020-07-[address] [facility] - 10:15:00 [facility] VANCOMYCIN LEVEL, TROUGH 2020-07-[address] [facility] - 09:45:00 [facility] CBC (HEMOGRAM ONLY) 2020-07-[address] [facility] - 03:32:00 [facility] APTT 2020-07-[address] [facility] - 03:32:00 [facility] PROTHROMBIN TIME/INR 2020-07-[address] [facility] - 03:32:00 [facility] BASIC METABOLIC PANEL (7) 2020-07-[address] [facility] - 03:32:00 [facility] MAGNESIUM 2020-07-30 Creden, Brandon [facility] - 03:32:00 [facility] PHOSPHORUS 2020-07-30 Creden, Brandon [facility] - 03:32:00 [facility] HEPATIC FUNCTION PANEL 2020-07-30 Creden, Brandonbhumika [facility] - 03:32:00 [facility] XR CHEST 1 VIEW PORTABLE / 2020-07-30 Kristina Romero [facility] 00:56:00 [facility] PREPARE LEUKO-REDUCED PLATELETS 2020-07-29 [address] [facility] - 23:54:00 [facility] POCT-GLUCOSE METER 2020-07-[address] [facility] - 18:16:00 [facility] XR CHEST 1 VIEW PORTABLE / 2020-07-29 Viktoria Roni [facility] 16:00:00 [facility] BODY FLUID CULTURE + GRAM STAIN 2020-07-29 [facility] Roni [facility] - 11:48:00 [facility] SARS-COV2/RT-PCR ([facility] & REF 2020-07-[address] [facility] - LABS) 04:44:00 [facility] CBC (HEMOGRAM ONLY) 2020-07-[address] [facility] - 02:34:00 [facility] APTT 2020-07-[address] [facility] - 02:34:00 [facility] PROTHROMBIN TIME/INR 2020-07-[address] [facility] - 02:34:00 [facility] BASIC METABOLIC PANEL (7) 2020-07-[address] [facility] - 02:34:00 [facility] MAGNESIUM 2020-07-[address] [facility] - 02:34:00 [facility] PHOSPHORUS 2020-07-[address] [facility] - 02:34:00 [facility] HEPATIC FUNCTION PANEL 2020-07-[address] [facility] - 02:34:00 [facility] XR CHEST 1 VIEW PORTABLE / 2020-07-29 Kristina Romero [facility] 01:31:00 [facility] PREPARE LEUKO-REDUCED RBC 2020-07-[address] [facility] - 23:54:00 [facility] POCT-GLUCOSE METER 2020-07-[address] [facility] - 17:45:00 [facility] CBC W/PLT COUNT & AUTO 2020-07-[address] [facility] - DIFFERENTIAL 11:43:00 [facility] BASIC METABOLIC PANEL (7) 2020-07-[address] [facility] - 11:43:00 [facility] MAGNESIUM 2020-07-[address] [facility] - 11:43:00 [facility] PHOSPHORUS 2020-07-[address] [facility] - 11:43:00 [facility] LACTIC ACID, ARTERIAL 2020-07-[address] [facility] - 11:43:00 [facility] (CELLAVISION MANUAL DIFF) 2020-07-[address] [facility] - 11:43:00 [facility] ECG 12-LEAD 2020-07-28 Unknown, Hl7 [facility] - 11:25:55 [facility] 2D ECHO W/ DOPPLER (CW/PW/COLOR) 2020-07-28 Roni Blum [facility] - 10:21:00 [facility] POCT-GLUCOSE METER 2020-07-28 Oh Patrick [facility] - 10:13:00 [facility] VANCOMYCIN LEVEL, TROUGH 2020-07-28 Kristine Funez [facility] - 09:20:00 [facility] BLOOD CULTURE 2020-07-28 Mattie Brandon [facility] - 09:20:00 [facility] TRANSFUSE LEUKO-REDUCED PLATELETS 2020-07-28 Brandon Phelps [facility] - 08:19:40 [facility] BLOOD CULTURE 2020-07-28 Brandon Phelps [facility] - 06:59:00 [facility] OXYGEN SATURATION, MEASURED 2020-07-[address] [facility] - 02:25:00 [facility] CBC (HEMOGRAM ONLY) 2020-07-[address] [facility] - 02:25:00 [facility] APTT 2020-07-[address] [facility] - 02:25:00 [facility] PROTHROMBIN TIME/INR 2020-07-[address] [facility] - 02:25:00 [facility] BASIC METABOLIC PANEL (7) 2020-07-[address] [facility] - 02:25:00 [facility] MAGNESIUM 2020-07-[address] [facility] - 02:25:00 [facility] PHOSPHORUS 2020-07-[address] [facility] - 02:25:00 [facility] HEPATIC FUNCTION PANEL 2020-07-[address] [facility] - 02:25:00 [facility] XR CHEST 1 VIEW PORTABLE / 2020-07-28 Anu Romerogeni [facility] BEDSIDE 01:07:00 [facility] US DRAINAGE WITH CATH PLACEMENT 2020-07-[address] [facility] - 15:36:00 [facility] [place] INSERT 2020-07-27 Kunal Mendoza [facility] CATH,ART,PERCUT,SHORTTERM 14:08:51 [facility] POCT-GLUCOSE METER 2020-07-[address] [facility] - 12:09:00 [facility] HIGH SENSITIVITY TROPONIN I 2020-07-[address] [facility] - 11:56:00 [facility] LACTIC ACID, ARTERIAL 2020-07-[address] [facility] - 11:55:00 [facility] CBC (HEMOGRAM ONLY) 2020-07-[address] [facility] - 11:55:00 [facility] [facility] BASIC METABOLIC PANEL (7) 2020-07-27 Roni Blum [facility] 11:55:00 [facility] OXYGEN SATURATION, MEASURED 2020-07-27 Roni Blum [facility] - 11:55:00 [facility] TRANSFUSE LEUKO-REDUCED RED BLOOD 2020-07-27 Mattie Brandon [facility] - CELLS 10:17:12 [facility] APTT 2020-07-27 Roni Blum [facility] - 10:01:00 [facility] HC CAROTID DOPPLER UNIL 2020-07-[address] [address] [facility] - 08:00:00 [facility] TYPE AND SCREEN, AUTOMATED 2020-07-27 Mattie Brandon[facility]humika [facility] - 05:36:[address] [facility] [address] CHEST WITHOUT IV CONTRAST 2020-07-[address] [facility] - 04:38:[address] [facility] [address] ABDOMEN/PELVIS WITHOUT IV 2020-07-[address] [facility] - CONTRAST 04:38:00 [facility] HIGH SENSITIVITY TROPONIN I 2020-07-[address] [facility] - 03:31:00 [facility] BLOOD GAS, ARTERIAL 2020-07-[address] [facility] - 03:06:00 [facility] CBC (HEMOGRAM ONLY) 2020-07-[address] [facility] - 02:52:00 [facility] APTT 2020-07-[address] [facility] - 02:52:00 [facility] PROTHROMBIN TIME/INR 2020-07-[address] [facility] - 02:52:00 [facility] BASIC METABOLIC PANEL (7) 2020-07-[address] - 02:52:00 [facility] MAGNESIUM 2020-07-[address] [facility] - 02:52:00 [facility] PHOSPHORUS 2020-07-27 Mattie Brandon [facility] - 02:52:00 [facility] HEPATIC FUNCTION PANEL 2020-07-[address] [facility] - 02:52:00 [facility] XR CHEST 1 VIEW PORTABLE / 2020-07-27 [facility] 01:05:00 [facility] POCT-GLUCOSE METER 2020-07-[address] [facility] - 00:10:00 [facility] B-TYPE NATRIURETIC FACTOR (BNP) 2020-07-[address] [facility] - 23:52:00 [facility] LACTIC ACID, ARTERIAL 2020-07-[address] [facility] - 23:52:00 [facility] CORTISOL 2020-07-[address] [facility] - 23:52:00 [facility] XR CHEST 1 VIEW PORTABLE / 2020-07-26 Brandon Phelps [facility] 21:36:00 [facility] B-TYPE NATRIURETIC FACTOR (BNP) 2020-07-[address] [facility] - 18:58:33 [facility] POCT-ACT 2020-07-[address] [facility] - 18:55:00 [facility] POCT-ACT 2020-07-[address] [facility] - 18:32:00 [facility] IABP INSERTION MCR - IP PROC 2020-07-[address] [facility] - ONLY 17:07:00 [facility] L CATH / CORONARY ANGIOS & FFR 2020-07-[address] [facility] - 17:07:00 [facility] URINALYSIS W/ REFLEX URINE 2020-07-26 Kristina Romero [facility] - CULTURE 16:49:00 [facility] URINE CULTURE 2020-07-[address] [facility] - 16:49:00 [facility] OXYGEN SATURATION, MEASURED 2020-07-[address] [facility] - 16:05:00 [facility] POCT-GLUCOSE METER 2020-07-[address] [facility] - 13:41:00 [facility] BASIC METABOLIC PANEL (7) 2020-07-[address] - 13:39:00 [facility] 2D ECHO W/ DOPPLER (CW/PW/COLOR) 2020-07-[address] [facility] - 12:33:00 [facility] LACTIC ACID, VENOUS 2020-07-[address] [facility] - 11:55:00 [facility] XR CHEST 1 VIEW PORTABLE / 2020-07-26 Krist[facility] Romero [facility] 11:54:00 [facility] BLOOD GAS, ARTERIAL 2020-07-[address] [facility] - 11:43:00 [facility] BLOOD CULTURE 2020-07-[address] [facility] - 11:40:00 [facility] BLOOD CULTURE IDENTIFICATION 2020-07-[address] [facility] - PANEL 11:40:00 [facility] PROCALCITONIN 2020-07-[address] [facility] - 11:38:00 [facility] CBC (HEMOGRAM ONLY) 2020-07-[address] [facility] - 11:38:00 [facility] POCT-GLUCOSE METER 2020-07-[address] [facility] - 08:31:00 [facility] XR CHEST 1 VIEW PORTABLE / 2020-07-26 Kristina Romero [facility] 07:00:00 [facility] CBC (HEMOGRAM ONLY) 2020-07-[address] [facility] - 03:19:00 [facility] APTT 2020-07-[address] [facility] - 03:19:00 [facility] PROTHROMBIN TIME/INR 2020-07-[address] [facility] - 03:19:00 [facility] BASIC METABOLIC PANEL (7) 2020-07-[address] [facility] - 03:19:00 [facility] MAGNESIUM 2020-07-[address] [facility] - 03:19:00 [facility] PHOSPHORUS 2020-07-[address] [facility] - 03:19:00 [facility] POCT-GLUCOSE METER 2020-07-[address] [facility] - 22:01:00 [facility] POCT-GLUCOSE METER 2020-07-[address] [facility] - 17:11:00 [facility] POCT-GLUCOSE METER 2020-07-[address] [facility] - 05:33:00 [facility] CBC (HEMOGRAM ONLY) 2020-07-[address] [facility] - 02:43:00 [facility] MAGNESIUM 2020-07-[address] [facility] - 02:43:00 [facility] APTT 2020-07-[address] [facility] - 02:43:00 [facility] PROTHROMBIN TIME/INR 2020-07-[address] [facility] - 02:43:00 [facility] COMPREHENSIVE METABOLIC PANEL 2020-07-[address] [facility] - 02:43:00 [facility] XR CHEST 1 VIEW PORTABLE / 2020-07-25 Kristina [facility]ero [facility] 02:04:00 [facility] PREPARE LEUKO-REDUCED RBC 2020-07-[address] [facility] - 23:54:00 [facility] POCT-GLUCOSE METER 2020-07-[address] [facility] - 23:18:00 [facility] POCT-GLUCOSE METER 2020-07-[address] [facility] - 17:21:00 [facility] XR CHEST 1 VIEW PORTABLE / 2020-07-24 Dilan Drake [facility] 15:23:00 [facility] POCT-GLUCOSE METER 2020-07-24 hO Patrick [facility] - 09:47:00 [facility] POCT-GLUCOSE METER 2020-07-[address] [facility] - 06:01:00 [facility] CBC (HEMOGRAM ONLY) 2020-07-[address] [facility] - 03:24:00 [facility] MAGNESIUM 2020-07-[address] [facility] - 03:24:00 [facility] APTT 2020-07-[address] [facility] - 03:24:00 [facility] PROTHROMBIN TIME/INR 2020-07-[address] [facility] - 03:24:00 [facility] BLOOD GAS, ARTERIAL 2020-07-[address] [facility] - 03:24:00 [facility] COMPREHENSIVE METABOLIC PANEL 2020-07-[address] [facility] - 03:24:00 [facility] XR CHEST 1 VIEW PORTABLE / 2020-07-24 Kristina Romero [facility] 00:41:00 [facility] HEPATIC FUNCTION PANEL 2020-07-[address] [facility] - 14:17:00 [facility] HEMOGLOBIN AND HEMATOCRIT 2020-07-[address] [facility] - 14:17:00 [facility] POTASSIUM 2020-07-[address] [facility] - 14:17:00 [facility] TRANSFUSE LEUKO-REDUCED RED BLOOD 2020-07-[address] [facility] - CELLS 11:43:42 [facility] TYPE AND SCREEN, AUTOMATED 2020-07-23 Dilan Drake [facility] - 06:51:00 [facility] OXYGEN SATURATION, MEASURED 2020-07-[address] [facility] - 06:18:00 [facility] CBC (HEMOGRAM ONLY) 2020-07-23 Kristina Romero [facility] - 04:28:00 [facility] BASIC METABOLIC PANEL (7) 2020-07-23 Jeff Blumjia [facility] - 04:28:00 [facility] MAGNESIUM 2020-07-23 Jeff Blumrey [facility] - 04:28:00 [facility] APTT 2020-07-[address] [facility] - 04:28:00 [facility] PROTHROMBIN TIME/INR 2020-07-[address] [facility] - 04:28:00 [facility] BLOOD GAS, ARTERIAL 2020-07-[address] [facility] [facility] - 04:28:00 [facility] POCT-GLUCOSE METER 2020-07-[address] [facility] - 00:54:00 [facility] XR CHEST 1 VIEW PORTABLE / 2020-07-23 [facility] 00:12:00 [facility] PREPARE PLASMA 2020-07-22 Oh Patrick [facility] - 23:54:00 [facility] PREPARE RBC 2020-07-22 Oh [facility] 23:54:00 [facility] PREPARE PLATELETS 2020-07-22 Menon-KhanDAVID lam [facility] - 23:54:00 [facility] PREPARE CRYOPRECIPITATE 2020-07-[address] [facility] - 23:54:00 [facility] POCT-GLUCOSE METER 2020-07-[address] [facility] - 18:20:00 [facility] POCT-GLUCOSE METER 2020-07-[address] [facility] - 13:08:00 [facility] POCT-GLUCOSE METER 2020-07-[address] [facility] - 06:02:00 [facility] SARS-COV2/RT-PCR (HS & REF 2020-07-22 Nick, Kristina [facility] LABS) 03:55:00 [facility] OXYGEN SATURATION, MEASURED 2020-07-[address] - 02:10:00 [facility] CBC (HEMOGRAM ONLY) 2020-07-[address] [facility] - 02:03:00 [facility] BASIC METABOLIC PANEL (7) 2020-07-[address] [facility] - 02:03:00 [facility] MAGNESIUM 2020-07-[address] [facility] - 02:03:00 [facility] APTT 2020-07-[address] [facility] - 02:03:00 [facility] PROTHROMBIN TIME/INR 2020-07-[address] [facility] - 02:03:00 [facility] BLOOD GAS, ARTERIAL 2020-07-[address] [facility] - 02:03:00 [facility] POCT-GLUCOSE METER 2020-07-[address] [facility] - 00:41:00 [facility] XR CHEST 1 VIEW PORTABLE / 2020-07-22 Kristina [facility]ero [facility] 00:37:00 [facility] CBC W/PLT COUNT & AUTO 2020-07-21 Gonzalez Sheriff [facility] - DIFFERENTIAL 17:09:00 [facility] BASIC METABOLIC PANEL (7) 2020-07-21 Gonzalez Sheriff [facility] 17:09:00 [facility] APTT 2020-07-[address] [facility] - 17:09:00 [facility] BLOOD GAS, ARTERIAL 2020-07-21 Gonzalez Sheriff [facility] - 17:09:00 [facility] TRANSFUSE PLASMA 2020-07-21 Viktoria, Roni [facility] - 17:01:53 [facility] TRANSFUSE CRYOPRECIPITATE 2020-07-21 Viktoria, Roni [facility] - 16:59:47 [facility] POCT-GLUCOSE METER 2020-07-[address] [facility] - 14:23:00 [facility] APTT 2020-07-21 Viktoria, Roni [facility] - 14:04:00 [facility] PROTHROMBIN TIME/INR 2020-07-21 Gonzalez Sheriff [facility] - 14:04:00 [facility] PREPARE RBC 2020-07-[address] [facility] - 10:24:00 [facility] XR CHEST 1 VIEW PORTABLE / 2020-07-21 Viktoria Roni [facility] - [facility]IDE 10:15:00 [facility] BASIC METABOLIC PANEL (7) 2020-07-21 Viktoria Roni [facility] - 09:44:00 [facility] CBC W/PLT COUNT & AUTO 2020-07-21 Viktoria Roni [facility] kes - DIFFERENTIAL 09:44:00 [facility] MAGNESIUM 2020-07-21 Viktoria, Roni [facility] - 09:44:00 [facility] PHOSPHORUS 2020-07-21 Viktoria, Roni [facility] - 09:44:00 [facility] BLOOD GAS, ARTERIAL 2020-07-21 Viktoria, Roni [facility] - 09:44:00 [facility] CALCIUM, IONIZED 2020-07-21 Viktoria, Roni [facility] - 09:44:00 [facility] PROTHROMBIN TIME/INR 2020-07-21 Viktoria, Roni [facility] - 09:44:00 [facility] OXYGEN SATURATION, MEASURED 2020-07-21 Viktoria, Roni [facility] - 09:44:00 [facility] SODIUM NA-STAT LAB 2020-07-21 Viktoria, Roni [facility] - 09:44:00 [facility] POTASSIUM-STAT LAB 2020-07-[address] [facility] - 09:44:00 [facility] GLUCOSE-STAT LAB 2020-07-[address] [facility] - 09:44:00 [facility] HGB/HCT (H&H) - STAT LAB 2020-07-[address] [facility] - 09:44:00 [facility] BLOOD GAS, ARTERIAL 2020-07-[address] [facility] - 09:01:23 [facility] CALCIUM, IONIZED 2020-07-[address] [facility] - 09:01:23 [facility] SODIUM NA-STAT LAB 2020-07-[address] [facility] - 09:01:23 [facility] POTASSIUM-STAT LAB 2020-07-[address] [facility] - 09:01:23 [facility] GLUCOSE-STAT LAB 2020-07-[address] [facility] - 09:01:23 [facility] HGB/HCT (H&H) - STAT LAB 2020-07-[address] [facility] - 09:01:23 [facility] TRANSFUSE CRYOPRECIPITATE 2020-07-[address] [facility] - 08:32:17 [facility] TRANSFUSE LEUKO-REDUCED PLATELETS 2020-07-[address] [facility] - 08:22:23 [facility] TRANSFUSE CRYOPRECIPITATE 2020-07-[address] [facility] - 08:13:42 [facility] TRANSFUSE LEUKO-REDUCED PLATELETS 2020-07-[address] [facility] - 08:04:30 [facility] BLOOD GAS, ARTERIAL 2020-07-[address] [facility] - 08:00:33 [facility] CALCIUM, IONIZED 2020-07-[address] [facility] - 08:00:33 [facility] SODIUM NA-STAT LAB 2020-07-[address] [facility] - 08:00:33 [facility] POTASSIUM-STAT LAB 2020-07-[address] [facility] - 08:00:33 [facility] GLUCOSE-STAT LAB 2020-07-[address] [facility] - 08:00:33 [facility] HGB/HCT (H&H) - STAT LAB 2020-07-[address] [facility] - 08:00:33 [facility] FIBRINOGEN 2020-07-[address] [facility] - 07:54:23 [facility] PLATELET COUNT 2020-07-[address] [facility] - 07:54:23 [facility] MISCELLANEOUS LAB ORDER 2020-07-[address] [facility] - 07:54:23 [facility] TRANSFUSE CRYOPRECIPITATE 2020-07-[address] [facility] - 07:46:42 [facility] TRANSFUSE LEUKO-REDUCED PLATELETS 2020-07-[address] [facility] - 07:46:32 [facility] POCT-ACT 2020-07-[address] [facility] - 07:43:00 [facility] BLOOD GAS, ARTERIAL 2020-07-[address] [facility] - 07:41:50 [facility] CALCIUM, IONIZED 2020-07-[address] [facility] - 07:41:50 [facility] SODIUM NA-STAT LAB 2020-07-[address] [facility] - 07:41:50 [facility] POTASSIUM-STAT LAB 2020-07-[address] [facility] - 07:41:50 [facility] GLUCOSE-STAT LAB 2020-07-[address] [facility] - 07:41:50 [facility] HGB/HCT (H&H) - STAT LAB 2020-07-[address] [facility] - 07:41:50 [facility] TRANSFUSE PLASMA 2020-07-[address] [facility] - 07:28:36 [facility] TRANSFUSE LEUKO-REDUCED PLATELETS 2020-07-[address] [facility] - 07:28:04 [facility] TRANSFUSE CRYOPRECIPITATE 2020-07-[address] [facility] - 07:27:48 [facility] POCT-ACT 2020-07-21 Cosasim, Oh [facility] - 06:48:00 [facility] PLATELET COUNT 2020-07-[address] [facility] - 06:46:30 [facility] FIBRINOGEN 2020-07-[address] [facility] - 06:46:30 [facility] MISCELLANEOUS LAB ORDER 2020-07-[address] [facility] - 06:46:30 [facility] BLOOD GAS, ARTERIAL 2020-07-21 Cosasim, Oh [facility] - 06:46:24 [facility] SODIUM NA-STAT LAB 2020-07-21 Coselli, Oh [facility] - 06:46:24 [facility] POTASSIUM-STAT LAB 2020-07-21 Cosasim, Oh [facility] - 06:46:24 [facility] GLUCOSE-STAT LAB 2020-07-21 Cosasim, Oh [facility] - 06:46:24 [facility] HGB/HCT (H&H) - STAT LAB 2020-07-21 Griselda, Oh [facility] - 06:46:24 [facility] PROTHROMBIN TIME/INR 2020-07-[address] [facility] - 06:46:00 [facility] APTT 2020-07-[address] [facility] - 06:46:00 [facility] TRANSFUSE LEUKO-REDUCED RED BLOOD 2020-07-21 Phoenix Ryan jordi [facility] - CELLS 06:30:41 [facility] BLOOD GAS, ARTERIAL 2020-07-21 Griselda, Oh [facility] - 06:21:52 [facility] SODIUM NA-STAT LAB 2020-07-21 Coselli, Oh [facility] - 06:21:52 [facility] POTASSIUM-STAT LAB 2020-07-21 Cosasim, Oh [facility] - 06:21:52 [facility] GLUCOSE-STAT LAB 2020-07-21 Cosasim, Oh [facility] - 06:21:52 [facility] HGB/HCT (H&H) - STAT LAB 2020-07-21 Cosasim, Oh [facility] - 06:21:52 [facility] POCT-ACT 2020-07-21 Coselli, Oh [facility] - 06:05:00 [facility] POCT-ACT 2020-07-21 Cosasim, Oh [facility] - 05:26:00 [facility] BLOOD GAS, ARTERIAL 2020-07-21 Griselda, Oh [facility] - 05:24:26 [facility] SODIUM NA-STAT LAB 2020-07-21 Coselli, Oh [facility] - 05:24:26 [facility] POTASSIUM-STAT LAB 2020-07-21 [facility] - 05:24:26 [facility] GLUCOSE-STAT LAB 2020-07-21 [facility] - 05:24:26 [facility] HGB/HCT (H&H) - STAT LAB 2020-07-21 [facility] [place] [facility] - 05:24:26 [facility] POCT-ACT 2020-07-21 Griselda, Oh [facility] - 04:59:00 [facility] TRANSFUSE LEUKO-REDUCED RED BLOOD 2020-07-21 Phoenix Ryan [facility] - CELLS 04:31:55 [facility] ANESTHESIA GILMER 2020-07-[address] [facility] - 03:56:38 [facility] ABORH, MANUAL 2020-07-[address] [facility] - 03:43:00 [facility] BLOOD GAS, ARTERIAL 2020-07-[address] [facility] - 03:28:52 [facility] SODIUM NA-STAT LAB 2020-07-[address] [facility] - 03:28:52 [facility] POTASSIUM-STAT LAB 2020-07-[address] [facility] - 03:28:52 [facility] GLUCOSE-STAT LAB 2020-07-[address] [facility] - 03:28:52 [facility] HGB/HCT (H&H) - STAT LAB 2020-07-21 Frances [facility] 03:28:52 [facility] APTT 2020-07-[address] [facility] - 03:15:00 [facility] PROTHROMBIN TIME/INR 2020-07-[address] [facility] - 03:15:00 [facility] BASIC METABOLIC PANEL (7) 2020-07-[address] [facility] - 03:15:00 [facility] CBC W/PLT COUNT & AUTO 2020-07-[address] - DIFFERENTIAL 03:15:00 [facility] MAGNESIUM 2020-07-[address] [facility] - 03:15:00 [facility] PHOSPHORUS 2020-07-[address] [facility] - 03:15:00 [facility] HEPATIC FUNCTION PANEL 2020-07-[address] [facility] - 03:15:00 [facility] TYPE AND SCREEN, AUTOMATED 2020-07-21 [facility] Drake [facility] 03:15:00 [facility] REPAIR,AATA (ANEURYSM ASCENDING 2020-07-21 Menon-Khan, [facility] - THORACIC AORTA) 02:47:00 [facility] CARDIAC CATH REPORT - SCAN 2020-07-21 Provider, Default [facility] - 00:00:00 [facility] VASCULAR DIAGRAM -SCAN 2020-07-21 Provider, Default [facility] - 00:00:00 [facility] COMPLETE BLOOD COUNT W/ 2020-07-20 Reta Sherman MD And erson DIFFERENTIAL 17:13:00 [facility] COMPREHENSIVE METABOLIC PANEL 2020-07-20 Reta Sherman MD 17:13:00 [facility] MAGNESIUM LEVEL 2020-07-20 Reta Sherman MD 17:13:00 [facility] PHOSPHORUS LEVEL 2020-07-20 Reta Sherman MD 17:13:00 [facility] LACTATE DEHYDROGENASE 2020-07-20 Reta Sherman MD Raoul son 17:13:00 [facility] CARCINOEMBRYONIC ANTIGEN 2020-07-20 Reta Sherman MDson 17:13:00 [facility] TYPE AND SCREEN 2020-07-20 Reta Sherman MD 17:13:00 [facility] Results CBC 2020-07-20 Reta Sherman MD 17:13:00 [facility] MANUAL DIFFERENTIAL 2020-07-20 Reta Sherman MD 17:13:00 [facility] GLUCOSE LEVEL 2020-07-20 Reta Sherman MD 17:13:00 [facility] BLOOD UREA NITROGEN 2020-07-20 Reta Sherman MD 17:13:00 [facility] ELECTROLYTE PANEL 2020-07-20 Reta Sherman MD 17:13:00 [facility] SERUM CREATININE 2020-07-20 Reta Sherman MD 17:13:00 [facility] .GLOMERULAR FILTRATION RATE 2020-07-20 Reta Sherman MD 17:13:00 [facility] CALCIUM LEVEL TOTAL 2020-07-20 Reta Sherman MD n 17:13:00 [facility] ALBUMIN LEVEL 2020-07-20 Reta Sherman MD 17:13:00 [facility] ALKALINE PHOSPHATASE 2020-07-20 Reta Sherman MD on 17:13:00 [facility] ALANINE AMINOTRANSFERASE 2020-07-20 Reta Sherman MD derson 17:13:00 [facility] ASPARTATE AMINOTRANSFERASE 2020-07-20 Reta Sherman MD 17:13:00 [facility] TOTAL PROTEIN 2020-07-20 Reta Sherman MD 17:13:00 [facility] FRACTIONATED BILIRUBIN 2020-07-20 Reta Shermane rson 17:13:00 [facility] ABORH 2020-07-20 Reta Sherman MD 17:13:00 [facility] ANTIBODY SCREEN 2020-07-20 Reta Sherman MD 17:13:00 [facility] CLOT EXPIRATION DATE 2020-07-20 Reta Sherman MD on 17:13:00 [facility] TMP INTERPRETATION ANTIBODY 2020-07-20 Reta Sherman MD SCREEN NEGATIVE 17:13:00 [facility] [place] CENTRAL VENOUS PLACE EXCHANGE 2020-07-19 Rodrigo Walters MD 14:57:41 XR CHEST 1 VW POST IMPLANT 2020-07-19 Drew Walters MD 14:57:11 INTRAOPERATIVE US 2020-07-19 Drew Walters MD 13:24:13 PORT-A-CATH PLACEMENT 2020-07-19 Drew Walters MD Raoul son 13:20:00 FLUORO GUIDANCE FOR CENTRAL 2020-07-19 Drew Walters MD VENOUS ACCESS DEVICE PLACEMENT, 13:20:00 REPLACEMENT, OR REMOVAL US GUIDANCE WITH EVAL OF 2020-07-19 Drew Walters MD POTENTIAL ACCESS SITES, REALTIME 13:20:00 US VISUALIZATION OF VASC NEEDLE ENTRY GENERAL LABORATORY ADD ON TEST 2020-07-16 Reta Sherman MD 20:25:00 [facility] 2019-NCOV COVID-19 2020-07-16 Melody Islas MD n 19:11:00 BLOOD UREA NITROGEN 2020-07-16 Melody Islas MD 18:59:00 COMPLETE BLOOD COUNT W/ 2020-07-16 Melody Islaser son DIFFERENTIAL 18:59:00 SERUM CREATININE 2020-07-16 Melody Islas MD 18:59:00 ELECTROLYTE PANEL 2020-07-16 Melody Islas MD 18:59:00 HEMOGLOBIN A1C 2020-07-16 Melody Islas MD 18:59:00 FERRITIN LVL 2020-07-16 Albert Grimm MD 18:59:00 FOLATE, RED BLOOD CELLS 2020-07-16 Albert Grimm MD Mauri rson 18:59:00 IRON LEVEL 2020-07-16 Albert Grimm MD 18:59:00 TRANSFERRIN 2020-07-16 Albert Grimm MD 18:59:00 VITAMIN B12 LEVEL 2020-07-16 Albert Grimm MD 18:59:00 LACTATE DEHYDROGENASE 2020-07-16 Albert Grimmers on 18:59:00 RETICULOCYTE COUNT AUTOMATED 2020-07-16 Albert Grimm MD 18:59:00 SERUM CREATININE 2020-07-16 Melody Islas MD 18:59:00 .GLOMERULAR FILTRATION RATE 2020-07-16 Melody Islas MD nderson 18:59:00 Results CBC 2020-07-16 Melody Islas MD 18:59:00 MANUAL DIFFERENTIAL 2020-07-16 Melody Islas MD 18:59:00 GLUCOSE LEVEL 2020-07-16 Melody Islas MD 18:59:00 CALCIUM LEVEL TOTAL 2020-07-16 Melody Islas MD 18:59:00 ALBUMIN LEVEL 2020-07-16 Melody Islas MD 18:59:00 ALKALINE PHOSPHATASE 2020-07-16 Melody Islas MD 18:59:00 ALANINE AMINOTRANSFERASE 2020-07-16 Melody Islas MD Mauri rson 18:59:00 ASPARTATE AMINOTRANSFERASE 2020-07-16 Melody Islas MD deionson 18:59:00 TOTAL PROTEIN 2020-07-16 Melody Islas MD 18:59:00 FRACTIONATED BILIRUBIN 2020-07-16 Melody Islas MD Aaron on 18:59:00 TERESA PABLO MICROSATELLITE INSTABILITY 2020-07-14 Ilia Almonte MD (MSI) ANALYSIS INTERPRETATION AND 20:12:00 Karlyle REPORT TERESA PABLO SOLID TUMOR GENOMIC ASSAY 2020-07-14 Ilia Almonte MD FUSIONS 2018 INTERPRETATION AND 19:56:00 Karlyle REPORT TERESA PABLO MDA LAWRENCE MUTATION ANALYSIS 2020-07-14 Ilia Almonte MD PRECISION PANEL REPORT 19:56:00 Karlyle TERESA PABLO MICROSATELLITE INSTABILITY 2020-07-14 Ilia Almonte MD (MSI) ANALYSIS INTERPRETATION AND 19:56:00 Karlyle REPORT TRANSFUSE RED BLOOD CELLS 2020-07-07 Reta Sherman MD nderson 18:33:53 Fili TYPE AND SCREEN 2020-07-06 Reta Sherman MD 20:33:00 Fili ABORH 2020-07-06 Reta Sherman MD 20:33:00 Fili ANTIBODY SCREEN 2020-07-06 Reta Sherman MD 20:33:00 Fili CLOT EXPIRATION DATE 2020-07-06 Reta Sherman MD on 20:33:00 Fili TMP INTERPRETATION ANTIBODY 2020-07-06 Reta Sherman MD SCREEN NEGATIVE 20:33:00 Fili TMP CROSSMATCH INTERPRETATION 2020-07-06 Reta Sherman MD 20:33:00 Fili PREPARE RBC 2020-07-06 Reta Sherman MD 18:21:00 Fili PRBC PRODUCT READY FOR INSURANCE COLLECTOR 2020-07-06 Festus, Margi Patterson 18:21:00 COMPLETE BLOOD COUNT W/ 2020-07-02 Reta Sherman MD And erson DIFFERENTIAL 14:48:00 Fili COMPREHENSIVE METABOLIC PANEL 2020-07-02 Reta Sherman MD 14:48:00 Fili MAGNESIUM LEVEL 2020-07-02 Reta Sherman MD 14:48:00 Fili PHOSPHORUS LEVEL 2020-07-02 Reta Sherman MD 14:48:00 Fili LACTATE DEHYDROGENASE 2020-07-02 Reta Sherman MD Raoul son 14:48:00 Fili Results CBC 2020-07-02 Reta Sherman MD 14:48:00 Fili MANUAL DIFFERENTIAL 2020-07-02 Reta Sherman MDo n 14:48:00 Fili GLUCOSE LEVEL 2020-07-02 Reta Sherman MD 14:48:00 Fili BLOOD UREA NITROGEN 2020-07-02 Reta Sherman MDo n 14:48:00 Fili ELECTROLYTE PANEL 2020-07-02 Reta Sherman MD 14:48:00 Fili SERUM CREATININE 2020-07-02 Reta Sherman MD 14:48:00 Fili .GLOMERULAR FILTRATION RATE 2020-07-02 Reta Sherman MD 14:48:00 Fili CALCIUM LEVEL TOTAL 2020-07-02 Reta Sherman MDo n 14:48:00 Fili ALBUMIN LEVEL 2020-07-02 Reta Sherman MD 14:48:00 Fili ALKALINE PHOSPHATASE 2020-07-02 Reta Sherman MD Aaron on 14:48:00 Fili ALANINE AMINOTRANSFERASE 2020-07-02 Reta Sherman MD An derson 14:48:00 Fili ASPARTATE AMINOTRANSFERASE 2020-07-02 Reta Sherman MD 14:48:00 Fili TOTAL PROTEIN 2020-07-02 Reta Sherman MD 14:48:00 Fili FRACTIONATED BILIRUBIN 2020-07-02 Reta Sherman MD Mauri rson 14:48:00 Fili OSUNA MD MSI BY PCR MATERIAL REQUEST 2020-06-09 Ilia Almonte MD 23:19:59 Aggie OSUNA MD NTRK1 FUSION ANALYSIS 2020-06-09 Ilia Almonte MD nderson MATERIAL REQUEST 23:19:59 Aggie OSUNA MD NTRK2 FUSION ANALYSIS 2020-06-09 Ilia Almonte MD nderson MATERIAL REQUEST 23:19:59 Aggie OSUNA MD NTRK3 FUSION ANALYSIS 2020-06-09 Ilia Almonte MD nderson MATERIAL REQUEST 23:19:59 Aggie OSUNA MD KRAS MUTATION MATERIAL 2020-06-09 Ilia Almonte MD REQUEST 23:19:59 Aggie OSUNA MD [id number] MATERIAL REQUEST 2020-06-09 Ilia Almonte MD 23:19:59 Aggie OSUNA MD NRAS MUTATION MATERIAL 2020-06-09 Ilia Almonte MD REQUEST 23:19:59 Karlyle AP IHC MSI (MLH1, MSH2, MSH6, 2020-06-09 Ilia Almonte MD PMS2) MATERIAL REQUEST 23:19:19 Karlyle AP IHC HER2/LUCA MATERIAL REQUEST 2020-06-09 Ilia Almonte MD 23:19:19 Karlyle PREPARE RBC 2020-06-09 Ilia Almonte MD 23:15:00 Karlyle PRBC PRODUCT READY FOR INSURANCE COLLECTOR 2020-06-09 Ilia Almonte 23:15:00 Karlyle HP LB APC MUTATION ANALYSIS 2020-06-09 Reta Sherman MD COLLECTION, BLOOD 18:25:00 Fili HP LB BRAF MUTATION ANALYSIS 2020-06-09 Reta Sherman COLLECTION, BLOOD 18:25:00 Fili HP LB KRAS MUTATION ANALYSIS 2020-06-09 Reta Sherman COLLECTION, BLOOD 18:25:00 Fili TYPE AND SCREEN 2020-06-09 Reta Sherman MD 18:25:00 [facility] COMPLETE BLOOD COUNT W/ 2020-06-09 Reta Sherman MD And erson DIFFERENTIAL 18:25:00 [facility] COMPREHENSIVE METABOLIC PANEL 2020-06-09 Reta Sherman MD 18:25:00 Fili MAGNESIUM LEVEL 2020-06-09 Reta Sherman MD 18:25:00 [facility] PHOSPHORUS LEVEL 2020-06-09 Reta Sherman MD 18:25:00 Fili LACTATE DEHYDROGENASE 2020-06-09 Reta Sherman MD Raoul son 18:25:00 Fili ABORH 2020-06-09 Reta Sherman MD 18:25:00 Fili Results CBC 2020-06-09 Reta Sherman MD 18:25:00 Fili ANTIBODY SCREEN 2020-06-09 Reta Sherman MD 18:25:00 Fili MANUAL DIFFERENTIAL 2020-06-09 Reta Sherman MD n 18:25:00 Fili GLUCOSE LEVEL 2020-06-09 Reta Sherman MD 18:25:00 [facility] BLOOD UREA NITROGEN 2020-06-09 Reta Shermna MD n 18:25:00 [facility] ELECTROLYTE PANEL 2020-06-09 Reta Sherman MD 18:25:00 Fili SERUM CREATININE 2020-06-09 Reta Sherman MD 18:25:00 Fili .GLOMERULAR FILTRATION RATE 2020-06-09 Reta Sherman MD 18:25:00 Fili CALCIUM LEVEL TOTAL 2020-06-09 Reta Sherman MD Anderso n 18:25:00 Fili ALBUMIN LEVEL 2020-06-09 Reta Sherman MD 18:25:00 Fili ALKALINE PHOSPHATASE 2020-06-09 Reta Sherman MD on 18:25:00 Fili ALANINE AMINOTRANSFERASE 2020-06-09 Reta Sherman MD derson 18:25:00 Fili ASPARTATE AMINOTRANSFERASE 2020-06-09 Reta Sherman MD 18:25:00 Fili TOTAL PROTEIN 2020-06-09 Reta Sherman MD 18:25:00 Fili FRACTIONATED BILIRUBIN 2020-06-09 Reta Sherman MD Mauri rson 18:25:00 Fili HP LB LIQUID BIOPSY PANEL V1 2020-06-09 Reta Sherman INTERPRETATION AND REPORT 18:25:00 Fili CLOT EXPIRATION DATE 2020-06-09 Reta Sherman MD on 18:25:00 Fili TMP INTERPRETATION ANTIBODY 2020-06-09 Reta Sherman MD SCREEN NEGATIVE 18:25:00 Fili TMP CROSSMATCH INTERPRETATION 2020-06-09 Reta Sherman MD 18:25:00 Fili XR CHEST 2 VW 2020-06-09 Ilia Almonte MD 17:24:38 Karlyle ECG 12-LEAD 2020-06-03 Kunal Mendoza [facility] - 07:54:31 [facility] [place] COMPLETE BLOOD COUNT W/ 2020-06-02 Florentin Solomon MD And erson DIFFERENTIAL 16:02:00 COMPREHENSIVE METABOLIC PANEL 2020-06-02 Florentin Solomon MD 16:02:00 C REACTIVE PROTEIN 2020-06-02 Florentin Solomon MD 16:02:00 Results CBC 2020-06-02 Florentin Solomon MD 16:02:00 MANUAL DIFFERENTIAL 2020-06-02 Florentin Solomon MD Andyaakovo n 16:02:00 GLUCOSE LEVEL 2020-06-02 Florentin Solomon MD 16:02:00 ELECTROLYTE PANEL 2020-06-02 Florentin Solomon MD 16:02:00 SERUM CREATININE 2020-06-02 Florentin Solomon MD 16:02:00 .GLOMERULAR FILTRATION RATE 2020-06-02 Florentin Solomon MD 16:02:00 CALCIUM LEVEL TOTAL 2020-06-02 Florentin Solomon MD 16:02:00 ALBUMIN LEVEL 2020-06-02 Florentin Solomon MD 16:02:00 ALKALINE PHOSPHATASE 2020-06-02 Florentin Solomon MD Aaron on 16:02:00 ALANINE AMINOTRANSFERASE 2020-06-02 Florentin Solomon MDson 16:02:00 ASPARTATE AMINOTRANSFERASE 2020-06-02 Florentin Solomon MD 16:02:00 TOTAL PROTEIN 2020-06-02 Florentin Solomon MD 16:02:00 FRACTIONATED BILIRUBIN 2020-06-02 Florentin Solomon MD Mauri rson 16:02:00 BLOOD UREA NITROGEN 2020-06-02 Florentin Solomon MDo n 16:02:00 HC REF PREALBUMIN REF LAB 2020-06-02 Florentin Solomon MD nderson 16:02:00 IR CONVERSION OF EXTERNAL TO 2020-06-01 Jacobo Andrade MD INTERNAL-EXTERNAL BILIARY DRAIN 15:04:00 POC CHEM 8 2020-06-01 Scooby Rudd MD 13:55:00 TYPE AND SCREEN 2020-06-01 Palmer Siddiqui MD 13:54:00 ABORH 2020-06-01 Palmer Siddiqui MD 13:54:00 ANTIBODY SCREEN 2020-06-01 Palmer Siddiqui MD 13:54:00 CLOT EXPIRATION DATE 2020-06-01 Palmer Siddiqui MD 13:54:00 TMP INTERPRETATION ANTIBODY 2020-06-01 Palmer Siddiqui MD nderson SCREEN NEGATIVE 13:54:00 EKG, 12-LEAD (PORTABLE) 2020-05-31 Samantha Case MD son 00:00:00 COMPLETE BLOOD COUNT W/ 2020-05-29 Ricardo Dennison MD derson DIFFERENTIAL 11:12:00 COMPREHENSIVE METABOLIC PANEL 2020-05-29 Ricardo Dennison MD 11:12:00 MAGNESIUM LEVEL 2020-05-29 Manpreet, Samantha Patterson 11:12:00 PHOSPHORUS LEVEL 2020-05-29 Manpreet, Samantha Patterson 11:12:00 PROTHROMBIN TIME 2020-05-29 Manpreet, Samantha Patterson 11:12:00 PARTIAL THROMBOPLASTIN TIME 2020-05-29 Manpreet, Samantha Galeana nderson 11:12:00 CALCIUM IONIZED, VENOUS 2020-05-29 Manpreet, Samantha PABLO Raoul son 11:12:00 Results CBC 2020-05-29 Ricardo Dennison MD 11:12:00 MANUAL DIFFERENTIAL 2020-05-29 Ricardo Dennison MD Aaron on 11:12:00 GLUCOSE LEVEL 2020-05-29 Ricardo Dennison MD 11:12:00 BLOOD UREA NITROGEN 2020-05-29 Ricardo Dennison MD on 11:12:00 ELECTROLYTE PANEL 2020-05-29 Ricardo Dennison MD 11:12:00 SERUM CREATININE 2020-05-29 Ricardo Dennison MD 11:12:00 .GLOMERULAR FILTRATION RATE 2020-05-29 Ricardo Dennison 11:12:00 CALCIUM LEVEL TOTAL 2020-05-29 Ricardo Dennison MD on 11:12:00 ALBUMIN LEVEL 2020-05-29 Ricardo Dennison MD 11:12:00 ALKALINE PHOSPHATASE 2020-05-29 Ricardo Dennison MD Raoul son 11:12:00 ALANINE AMINOTRANSFERASE 2020-05-29 Ricardo Dennison MD nderson 11:12:00 ASPARTATE AMINOTRANSFERASE 2020-05-29 Ricardo Dennison MD 11:12:00 TOTAL PROTEIN 2020-05-29 Ricardo Dennison MD 11:12:00 FRACTIONATED BILIRUBIN 2020-05-29 Ricardo Dennison MD And erson 11:12:00 COMPLETE BLOOD COUNT W/ 2020-05-28 Manpreet, Samantha PABLO Raoul son DIFFERENTIAL 20:08:00 Results CBC 2020-05-28 Manpreet, Samantha Patterson 20:08:00 MANUAL DIFFERENTIAL 2020-05-28 Manpreet, Samantha Patterson 20:08:00 COMPLETE BLOOD COUNT W/ 2020-05-28 Ricardo Dennison MD derson DIFFERENTIAL 05:36:00 COMPREHENSIVE METABOLIC PANEL 2020-05-28 Ricardo Dennison MD 05:36:00 MAGNESIUM LEVEL 2020-05-28 Manpreet, Samantha Patterson 05:36:00 PHOSPHORUS LEVEL 2020-05-28 Manpreet, Samantha Patterson 05:36:00 PROTHROMBIN TIME 2020-05-28 Manpreet, Samantha Patterson 05:36:00 PARTIAL THROMBOPLASTIN TIME 2020-05-28 Manpreet, Samantha Galeana nderson 05:36:00 CALCIUM IONIZED, VENOUS 2020-05-28 Manpreet, Samantha PABLO Raoul son 05:36:00 Results CBC 2020-05-28 Ricardo Dennison MD 05:36:00 MANUAL DIFFERENTIAL 2020-05-28 Ricardo Dennison MD on 05:36:00 GLUCOSE LEVEL 2020-05-28 Ricardo Dennison MD 05:36:00 BLOOD UREA NITROGEN 2020-05-28 Ricardo Dennison MD on 05:36:00 ELECTROLYTE PANEL 2020-05-28 Ricardo Dennison MD 05:36:00 SERUM CREATININE 2020-05-28 Ricardo Dennison MD 05:36:00 .GLOMERULAR FILTRATION RATE 2020-05-28 Ricardo Dennison 05:36:00 CALCIUM LEVEL TOTAL 2020-05-28 Ricardo Dennison MD on 05:36:00 ALBUMIN LEVEL 2020-05-28 Ricardo Dennison MD 05:36:00 ALKALINE PHOSPHATASE 2020-05-28 Ricardo Dennison MD Raoul son 05:36:00 ALANINE AMINOTRANSFERASE 2020-05-28 Ricardo Dennison MD nderson 05:36:00 ASPARTATE AMINOTRANSFERASE 2020-05-28 Ricardo Dennison MD 05:36:00 TOTAL PROTEIN 2020-05-28 Ricardo Dennison MD 05:36:00 FRACTIONATED BILIRUBIN 2020-05-28 Ricardo Dennison MD And erson 05:36:00 HEMATOCRIT 2020-05-27 Andria Islas MD 18:15:00 HEMOGLOBIN 2020-05-27 Andria Islas MD 18:15:00 COMPLETE BLOOD COUNT W/ 2020-05-27 Ricardo Dennison MD derson DIFFERENTIAL 05:44:00 COMPREHENSIVE METABOLIC PANEL 2020-05-27 Ricardo Dennison MD 05:44:00 MAGNESIUM LEVEL 2020-05-27 Manpreet, Samantha Patterson 05:44:00 PHOSPHORUS LEVEL 2020-05-27 Manpreet, Samantha Patterson 05:44:00 PROTHROMBIN TIME 2020-05-27 Manpreet, Samantha Patterson 05:44:00 PARTIAL THROMBOPLASTIN TIME 2020-05-27 Manpreet, Samantha Galeana nderson 05:44:00 CALCIUM IONIZED, VENOUS 2020-05-27 Manpreet, Samantha PABLO Raoul son 05:44:00 THYROID STIMULATING HORMONE 2020-05-27 Beatriz Robbins MD nderson 05:44:00 FREE T3 2020-05-27 Beatriz Robbins MD 05:44:00 FREE THYROXINE 2020-05-27 Beatriz Robbins MD 05:44:00 Results CBC 2020-05-27 Ricardo Dennison MD 05:44:00 MANUAL DIFFERENTIAL 2020-05-27 Ricardo Dennison MD on 05:44:00 GLUCOSE LEVEL 2020-05-27 Ricardo Dennison MD 05:44:00 BLOOD UREA NITROGEN 2020-05-27 Ricardo Dennison MD on 05:44:00 ELECTROLYTE PANEL 2020-05-27 Ricardo Dennison MD 05:44:00 SERUM CREATININE 2020-05-27 Ricardo Dennison MD 05:44:00 .GLOMERULAR FILTRATION RATE 2020-05-27 Ricardo Dennison 05:44:00 CALCIUM LEVEL TOTAL 2020-05-27 Ricardo Dennison MD Aaron on 05:44:00 ALBUMIN LEVEL 2020-05-27 Ricardo Dennison MD 05:44:00 ALKALINE PHOSPHATASE 2020-05-27 Ricardo Dennison MD Raoul son 05:44:00 ALANINE AMINOTRANSFERASE 2020-05-27 Ricardo Dennison MD A nderson 05:44:00 ASPARTATE AMINOTRANSFERASE 2020-05-27 Ricardo Dennison MD 05:44:00 TOTAL PROTEIN 2020-05-27 Ricardo Dennison MD 05:44:00 FRACTIONATED BILIRUBIN 2020-05-27 Ricardo Dennison MD And erson 05:44:00 IR PLACEMENT BILIARY DRAINAGE 2020-05-27 Beatriz Robbins MD CATHETER (EXTERNAL) 90 00:45:19 AFB INTERVENTIONAL RADIOLOGY W/ 2020-05-26 Almas De Leon MD SMEAR 23:48:00 HC CULTURE, ANAEROB 2020-05-26 Almas De Leon MD 23:48:00 FUNGUS INTERVENTIONAL RAD CULTURE 2020-05-26 Almas De Leon MD W/ GRAM STAIN 23:48:00 INTERVENTIONAL RADIOLOGY CULTURE 2020-05-26 Almas De Leon MD W/GRAM STAIN 23:48:00 ENDOSCOPY NOTE RESULTS 2020-05-26 Blanca Soares MD on 23:42:39 ENDOSCOPIC RETROGRADE 2020-05-26 Blanca Soares MDo n CHOLANGIOPANCREATOGRAPHY WITH 18:15:00 PLACEMENT OF STENT OF BILE DUCT HEMOGLOBIN 2020-05-26 Rachael Gaston MD 17:08:00 HEMATOCRIT 2020-05-26 Rachael Gaston MD 17:08:00 HEMOGLOBIN 2020-05-26 Rachael Gaston MD 10:34:00 HEMATOCRIT 2020-05-26 Rachael Gaston MD 10:34:00 COMPLETE BLOOD COUNT W/ 2020-05-26 Ricardo Dennison MD An derson DIFFERENTIAL 05:32:00 COMPREHENSIVE METABOLIC PANEL 2020-05-26 Ricardo Dennison MD 05:32:00 MAGNESIUM LEVEL 2020-05-26u, Samantha Patterson 05:32:00 PHOSPHORUS LEVEL 2020-05-26 Manpreet, Samantha Patterson 05:32:00 PROTHROMBIN TIME 2020-05-26 Manpreet, Samantha Patterson 05:32:00 PARTIAL THROMBOPLASTIN TIME 2020-05-26 Manpreet, Samantha Galeana nderson 05:32:00 CALCIUM IONIZED, VENOUS 2020-05-26 Manpreet, Samantha PABLO Raoul son 05:32:00 Results CBC 2020-05-26 Ricardo Dennison MD 05:32:00 MANUAL DIFFERENTIAL 2020-05-26 Ricardo Dennison MD on 05:32:00 GLUCOSE LEVEL 2020-05-26 Ricardo Dennison MD 05:32:00 BLOOD UREA NITROGEN 2020-05-26 Ricardo Dennison MD on 05:32:00 ELECTROLYTE PANEL 2020-05-26 Ricardo Dennison MD 05:32:00 SERUM CREATININE 2020-05-26 Rciardo Dennison MD 05:32:00 .GLOMERULAR FILTRATION RATE 2020-05-26 Ricardo Dennison 05:32:00 CALCIUM LEVEL TOTAL 2020-05-26 Ricardo Dennison MD on 05:32:00 ALBUMIN LEVEL 2020-05-26 Ricardo Dennison MD 05:32:00 ALKALINE PHOSPHATASE 2020-05-26 Ricardo Dennison MD Raoul son 05:32:00 ALANINE AMINOTRANSFERASE 2020-05-26 Ricardo Dennison MD nderson 05:32:00 ASPARTATE AMINOTRANSFERASE 2020-05-26 Ricardo Dennison MD 05:32:00 TOTAL PROTEIN 2020-05-26 Ricardo Dennison MD 05:32:00 FRACTIONATED BILIRUBIN 2020-05-26 Ricardo Dennison MD And erson 05:32:00 OCCULT BLOOD STOOL 2020-05-26 Kirk Lundberg MD 02:08:00 HEMOGLOBIN 2020-05-26 Samantha Case MD 00:35:00 HEMOGLOBIN 2020-05-25 Ricardo Dennison MD 17:01:00 BLOODCULTURE 2020-05-25 Ricardo Dennison MD 08:51:00 COMPLETE BLOOD COUNT W/ 2020-05-25 Ricardo Dennison MD An derson DIFFERENTIAL 08:51:00 COMPREHENSIVE METABOLIC PANEL 2020-05-25 Ricardo Dennison MD 08:51:00 Results CBC 2020-05-25 Ricardo Dennison MD 08:51:00 MANUAL DIFFERENTIAL 2020-05-25 Ricardo Dennison MD on 08:51:00 GLUCOSE LEVEL 2020-05-25 Ricardo Dennison MD 08:51:00 BLOOD UREA NITROGEN 2020-05-25 Ricardo Dennison MD on 08:51:00 ELECTROLYTE PANEL 2020-05-25 Ricardo Dennison MD 08:51:00 SERUM CREATININE 2020-05-25 Ricardo Dennison MD 08:51:00 .GLOMERULAR FILTRATION RATE 2020-05-25 Ricardo Dennison 08:51:00 CALCIUM LEVEL TOTAL 2020-05-25 Ricardo Dennison MD on 08:51:00 ALBUMIN LEVEL 2020-05-25 Ricardo Dennison MD 08:51:00 ALKALINE PHOSPHATASE 2020-05-25 Ricardo Dennison MD Raoul son 08:51:00 ALANINE AMINOTRANSFERASE 2020-05-25 Ricardo Dennison MD nderson 08:51:00 ASPARTATE AMINOTRANSFERASE 2020-05-25 Ricardo Dennison MD 08:51:00 TOTAL PROTEIN 2020-05-25 Rciardo Dennison MD 08:51:00 FRACTIONATED BILIRUBIN 2020-05-25 Ricardo Dennison MD And erson 08:51:00 TRANSFUSE RED BLOOD CELLS 2020-05-25 Kirk Lundberg MD And erson 08:07:57 INFLUENZA A/B + COVID-19 2020-05-25 Ricardo Dennison MD nderson ASYMPTOMATIC-L 01:59:00 PREPARE RBC 2020-05-25 Kirk Lundberg MD 01:46:00 PRBC PRODUCT READY FOR INSURANCE COLLECTOR 2020-05-25 Jamey Dennison 01:46:00 CT ABDOMEN PELVIS W CONTRAST 2020-05-25 Stoney Becerril MD 00:31:14 TYPE AND SCREEN 2020-05-24 Kirk Lundberg MD 22:50:00 ABORH 2020-05-24 Kirk Lundberg MD 22:50:00 ANTIBODY SCREEN 2020-05-24 Kirk Lundberg MD 22:50:00 CLOT EXPIRATION DATE 2020-05-24 Kirk Lundberg MD 22:50:00 TMP INTERPRETATION ANTIBODY 2020-05-24 Kirk Lundberg MD SCREEN NEGATIVE 22:50:00 TMP CROSSMATCH INTERPRETATION 2020-05-24 Kirk Lundberg MD 22:50:00 COMPLETE BLOOD COUNT W/ 2020-05-24 Ilia Almonte MD Raoul son DIFFERENTIAL 20:20:00 Karlyle COMPREHENSIVE METABOLIC PANEL 2020-05-24 Ilia Almonte MD 20:20:00 Karlyle MAGNESIUM LEVEL 2020-05-24 Ilia Almonte MD 20:20:00 Karlyle PHOSPHORUS LEVEL 2020-05-24 Ilia Almonte MD 20:20:00 Karlyle LACTATE DEHYDROGENASE 2020-05-24 Ilia Almonte MD Anderso n 20:20:00 Karlyle CARCINOEMBRYONIC ANTIGEN 2020-05-24 Ilia Almontee rson 20:20:00 Karlyle Results CBC 2020-05-24 Ilia Almonte MD 20:20:00 Karlyle MANUAL DIFFERENTIAL 2020-05-24 Ilia Almonte MD 20:20:00 Karlyle GLUCOSE LEVEL 2020-05-24 Ilia Almonte MD 20:20:00 Karlyle BLOOD UREA NITROGEN 2020-05-24 Ilia Almonte MD 20:20:00 Karlyle ELECTROLYTE PANEL 2020-05-24 Ilia Almonte MD 20:20:00 Karlyle SERUM CREATININE 2020-05-24 Ilia Almonte MD 20:20:00 Karlyle .GLOMERULAR FILTRATION RATE 2020-05-24 Ilia Almonte MD 20:20:00 Karlyle CALCIUM LEVEL TOTAL 2020-05-24 Ilia Almonte MD 20:20:00 Karlyle ALBUMIN LEVEL 2020-05-24 Ilia Almonte MD 20:20:00 Karlyle ALKALINE PHOSPHATASE 2020-05-24 Ilia Almonte MD 20:20:00 Karlyle ALANINE AMINOTRANSFERASE 2020-05-24 Ilia Almonte MD rson 20:20:00 Karlyle ASPARTATE AMINOTRANSFERASE 2020-05-24 Ilia Almonte MD 20:20:00 Karlyle TOTAL PROTEIN 2020-05-24 Ilia Almonte MD 20:20:00 Karlyle FRACTIONATED BILIRUBIN 2020-05-24 Ilia Almonte MD on 20:20:00 Karlyle COMPREHENSIVE METABOLIC PANEL 2020-05-21 Ilia Almonte MD 17:57:00 Karlyle COMPLETE BLOOD COUNT W/ 2020-05-21 Ilia Almonte MD son DIFFERENTIAL 17:57:00 Karlyle GLUCOSE LEVEL 2020-05-21 Ilia Almonte MD 17:57:00 Karlyle BLOOD UREA NITROGEN 2020-05-21 Ilia Almonte MD 17:57:00 Karlyle ELECTROLYTE PANEL 2020-05-21 Ilia Almonte MD 17:57:00 Karlyle SERUM CREATININE 2020-05-21 Ilia Almonte MD 17:57:00 Karlyle .GLOMERULAR FILTRATION RATE 2020-05-21 Ilia Almonte MDon 17:57:00 Karlyle CALCIUM LEVEL TOTAL 2020-05-21 Ilia Almonte MD 17:57:00 Karlyle ALBUMIN LEVEL 2020-05-21 Ilia Almonte MD 17:57:00 Karlyle ALKALINE PHOSPHATASE 2020-05-21 Ilia Almonte MD 17:57:00 Karlyle ALANINE AMINOTRANSFERASE 2020-05-21 Ilia Almonte MD rson 17:57:00 Karlyle ASPARTATE AMINOTRANSFERASE 2020-05-21 Ilia Almonte MD 17:57:00 Karlyle TOTAL PROTEIN 2020-05-21 Ilia Almonte MD 17:57:00 Karlyle FRACTIONATED BILIRUBIN 2020-05-21 Ilia Almonte MD on 17:57:00 Karlyle Results CBC 2020-05-21 Ilia Almonte MD 17:57:00 Karlyle MANUAL DIFFERENTIAL 2020-05-21 Ilia Almonte MD 17:57:00 Karlyle COMPLETE BLOOD COUNT W/ 2020-05-14 Andria Islas MD Mauri rson DIFFERENTIAL 17:03:00 Results CBC 2020-05-14 Andria Islas MD 17:03:00 MANUAL DIFFERENTIAL 2020-05-14 Adnria Islas MD 17:03:00 MAGNESIUM LEVEL 2020-05-14 Scooby Mayorga MD 10:28:00 [place]ay PHOSPHORUS LEVEL 2020-05-14 Scooby Mayorga MD 10:28:00 [place]ay COMPLETE BLOOD COUNT W/ 2020-05-14 Scooby Mayorga MD Raoul son DIFFERENTIAL 10:28:00 [place]ay COMPREHENSIVE METABOLIC PANEL 2020-05-14 Courtney Lozano MD 10:28:00 GLUCOSE LEVEL 2020-05-14 Courtney Lozano MD 10:28:00 BLOOD UREA NITROGEN 2020-05-14 Courtney Lozano MD 10:28:00 ELECTROLYTE PANEL 2020-05-14 Courtney Lozano MD 10:28:00 SERUM CREATININE 2020-05-14 Courtney Lozano MD 10:28:00 .GLOMERULAR FILTRATION RATE 2020-05-14 Courtney Lozano MD nderson 10:28:00 CALCIUM LEVEL TOTAL 2020-05-14 Courtney Lozano MD 10:28:00 ALBUMIN LEVEL 2020-05-14 Courtney Lozano MD 10:28:00 ALKALINE PHOSPHATASE 2020-05-14 Courtney Lozano MD 10:28:00 ALANINE AMINOTRANSFERASE 2020-05-14 Courtney Lozano MD rson 10:28:00 ASPARTATE AMINOTRANSFERASE 2020-05-14 Courtney Lozano MD derson 10:28:00 TOTAL PROTEIN 2020-05-14 Courtney Lozano MD 10:28:00 FRACTIONATED BILIRUBIN 2020-05-14 Courtney Lozano MD on 10:28:00 Results CBC 2020-05-14 Scooby Mayorga MD 10:28:00 [place] MANUAL DIFFERENTIAL 2020-05-14 Scooby Mayorga MD 10:28:00 Brissa DANIELS BLOOD CONTROL 2020-05-14 Latricia Fuentes MD 10:25:00 AP IHC MSI (MLH1, MSH2, MSH6, 2020-05-14 Ilia Almonte MD PMS2) MATERIAL REQUEST 01:20:35 Aggie OSUNA MD MSI BY PCR MATERIAL REQUEST 2020-05-14 Ilia Almonte MD 01:20:35 Aggie OSUNA IHC MSI (MLH1, MSH2, MSH6, 2020-05-14 Ilia Almonte MD PMS2) MATERIAL REQUEST 01:19:46 Aggie OSUNA MD MSI BY PCR MATERIAL REQUEST 2020-05-14 Ilia Almonte MD 01:19:46 Karlyljackeline MAGNESIUM LEVEL 2020-05-13 Scooby Mayorga MD 11:26:00 [place] PHOSPHORUS LEVEL 2020-05-13 Scooby Mayorga MD 11:26:00 Ramsay COMPREHENSIVE METABOLIC PANEL 2020-05-13 Courtney Lozano MD 11:26:00 HEMOGLOBIN 2020-05-13 Courtney Lozano MD 11:26:00 HEMATOCRIT 2020-05-13 Courtney Lozano MD 11:26:00 GLUCOSE LEVEL 2020-05-13 Courtney Lozano MD 11:26:00 BLOOD UREA NITROGEN 2020-05-13 Courtney Lozano MD 11:26:00 ELECTROLYTE PANEL 2020-05-13 Courtney Lozano MD 11:26:00 SERUM CREATININE 2020-05-13 Courtney Lozano MD 11:26:00 .GLOMERULAR FILTRATION RATE 2020-05-13 Courtney Lozano MD nderson 11:26:00 CALCIUM LEVEL TOTAL 2020-05-13 Courtney Lozano MD 11:26:00 ALBUMIN LEVEL 2020-05-13 Courtney Lozano MD 11:26:00 ALKALINE PHOSPHATASE 2020-05-13 Courtney Lozano MD 11:26:00 ALANINE AMINOTRANSFERASE 2020-05-13 Courtney Lozano MD Mauri rson 11:26:00 ASPARTATE AMINOTRANSFERASE 2020-05-13 Courtney Lozano MD derson 11:26:00 TOTAL PROTEIN 2020-05-13 Courtney Lozano MD 11:26:00 FRACTIONATED BILIRUBIN 2020-05-13 Courtney Lozano MD Aaron on 11:26:00 HEMOGLOBIN 2020-05-13 Courtney Lozano MD 01:25:00 HEMATOCRIT 2020-05-13 Courtney Lozano MD 01:25:00 ENDOSCOPY NOTE RESULTS 2020-05-12 Roni Guerrero MD on 21:59:21 ENDOSCOPIC RETROGRADE 2020-05-12 Roni Guerrero MD [place] CHOLANGIOPANCREATOGRAPHY WITH 21:59:00 PLACEMENT OF STENT OF BILE DUCT FL ENDOSCOPY FLUOROSCOPY 2020-05-12 Roni Guerrero MD Mauri rson 21:51:44 MRSA SCREENING CULTURE 2020-05-12 Courtney Lozano MD on 15:04:00 BLOODCULTURE 2020-05-12 Courtney Lozano MD 14:35:00 GENERAL LABORATORY ADD ON TEST 2020-05-12 Courtney Lozano 13:59:00 BASIC METABOLIC PANEL, CALCIUM 2020-05-12 Scooby Mayorga TOTAL 10:38:00 Ramsay MAGNESIUM LEVEL 2020-05-12 Scooby Mayorga MD 10:38:00 [place] PHOSPHORUS LEVEL 2020-05-12 Scooby Mayorga MD 10:38:00 Ramsay COMPLETE BLOOD COUNT W/ 2020-05-12 Scooby Mayorga MD son DIFFERENTIAL 10:38:00 Ramsay GLUCOSE LEVEL 2020-05-12 Scooby Mayorga MD 10:38:00 Ramsay BLOOD UREA NITROGEN 2020-05-12 Scooby Mayorga MD 10:38:00 [place]ay ELECTROLYTE PANEL 2020-05-12 Scooby Mayorga MD 10:38:00 Ramsay SERUM CREATININE 2020-05-12 Scooby Mayorga MD 10:38:00 Ramsay .GLOMERULAR FILTRATION RATE 2020-05-12 Scooby Mayorga MD nderson 10:38:00 Ramsay CALCIUM LEVEL TOTAL 2020-05-12 Scooby Mayorga MD 10:38:00 Ramsay Results CBC 2020-05-12 Scooby Mayorga MD 10:38:00 [place]ay MANUAL DIFFERENTIAL 2020-05-12 Scooby Mayorga MD 10:38:00 Ramsay HC PROCALCITONIN (PCT) 2020-05-12 Scooby Mayorga MD on 10:38:00 [place]ay ALBUMIN LEVEL 2020-05-12 Scooby Mayorga MD 10:38:00 [place] ALKALINE PHOSPHATASE 2020-05-12 Scooby Mayorga MD 10:38:00 [place] ALANINE AMINOTRANSFERASE 2020-05-12 Scooby Mayorga MD rson 10:38:00 [place] ASPARTATE AMINOTRANSFERASE 2020-05-12 Scooby Mayorga MD derson 10:38:00 Ramsay TOTAL PROTEIN 2020-05-12 Scooby Mayorga MD 10:38:00 [place] FRACTIONATED BILIRUBIN 2020-05-12 Scooby Mayorga MD on 10:38:00 [place]ay COMPLETE BLOOD COUNT W/ 2020-05-12 Vania Edwards MD Mauri rson DIFFERENTIAL 00:24:00 Cindy Results CBC 2020-05-12 Vania Edwards MD 00:24:00 Cindy MANUAL DIFFERENTIAL 2020-05-12 Vania Edwards MD 00:24:00 Cindy IR IVC FILTER PLACEMENT 2020-05-11 Latia Dietrich MD Raoul son 21:33:41 US LEG VENOUS DOPPLER BILATERAL 2020-05-11 Albert Grimm MD 17:53:00 PROTHROMBIN TIME 2020-05-11 Latia Dietrich MD 15:16:00 PARTIAL THROMBOPLASTIN TIME 2020-05-11 Latia Dietrich MD nderson 15:16:00 ABORH MANUAL 2020-05-11 Florian Fan MD 13:01:00 ANTIBODY SCREEN MANUAL 2020-05-11 Florian Fan MD rson 13:01:00 CLOT EXPIRATION DATE 2020-05-11 Florian Fan MD on 13:01:00 TMP CROSSMATCH INTERPRETATION 2020-05-11 Florian Fan MD 13:01:00 PREPARE RBC 2020-05-11 Latia Dietrich MD 12:59:00 PRBC PRODUCT READY FOR INSURANCE COLLECTOR 2020-05-11 Florian Fan MD 12:59:00 HEPATIC FUNCTION PANEL 2020-05-11 Scooby Mayorga MD on 12:22:00 Ramsay BASIC METABOLIC PANEL, CALCIUM 2020-05-11 Scooby Mayorga TOTAL 12:22:00 Ramsay MAGNESIUM LEVEL 2020-05-11 Scooby Mayorga MD 12:22:00 Ramsay PHOSPHORUS LEVEL 2020-05-11 Scooby Mayorga MD 12:22:00 Ramsay COMPLETE BLOOD COUNT W/ 2020-05-11 Scooby Mayorga MD Raoul son DIFFERENTIAL 12:22:00 Ramsay ALBUMIN LEVEL 2020-05-11 Scooby Mayorga MD 12:22:00 Ramsay ALKALINE PHOSPHATASE 2020-05-11 Scooby Mayorga MD 12:22:00 Ramsay ALANINE AMINOTRANSFERASE 2020-05-11 Scooby Mayorga MD rson 12:22:00 Ramsay ASPARTATE AMINOTRANSFERASE 2020-05-11 Scooby Mayorga MD derson 12:22:00 Ramsay TOTAL PROTEIN 2020-05-11 Scooby Mayorga MD 12:22:00 Ramsay FRACTIONATED BILIRUBIN 2020-05-11 Scooby Mayorga MD on 12:22:00 Ramsay GLUCOSE LEVEL 2020-05-11 Scooby Mayorga MD 12:22:00 Ramsay BLOOD UREA NITROGEN 2020-05-11 Scooby Mayorga MD 12:22:00 Ramsay ELECTROLYTE PANEL 2020-05-11 Scooby Mayorga MD 12:22:00 Ramsay SERUM CREATININE 2020-05-11 Scooby Mayorga MD 12:22:00 Ramsay .GLOMERULAR FILTRATION RATE 2020-05-11 Scooby Mayorga MD nderson 12:22:00 Ramsay CALCIUM LEVEL TOTAL 2020-05-11 Scooby Mayorga MD 12:22:00 Ramsay Results CBC 2020-05-11 Scooby Mayorga MD 12:22:00 Ramsay MANUAL DIFFERENTIAL 2020-05-11 Scooby Mayorga MD 12:22:00 Ramsay NT PRO BNP 2020-05-11 Ilia Centeno MD 12:22:00 URINALYSIS WITH MICROSCOPIC IF 2020-05-11 Ilia Centeno INDICATED 10:37:00 TRANSFUSION REACTION 2020-05-11 Ilia Centeno MD 10:35:00 TMP TRANSFUSION REACTION 2020-05-11 Ilia Centeno MD rsmichael INTERPRETATION 10:35:00 XR CHEST 1 VW 2020-05-11 Scooby Mayorga MD 10:28:07 Ramsay CARDIAC PANEL 2020-05-11 Scooby Mayorga MD 10:19:00 Ramsay NT PRO BNP 2020-05-11 Scooby Mayorga MD 10:19:00 Ramsay GENERAL LABORATORY ADD ON TEST 2020-05-11 Ilia Centeno 10:18:00 TRANSFUSE RED BLOOD CELLS 2020-05-11 Scoboy Mayorga MD And erson 07:58:49 Ramsay URINE CULTURE 2020-05-11 Stoney Becerril MD 04:22:00 URINALYSIS WITH MICROSCOPIC IF 2020-05-11 Stoney Becerril INDICATED 04:22:00 CT ABDOMEN PELVIS W CONTRAST 2020-05-11 Florian Fan 03:10:01 CT CHEST W CONTRAST 2020-05-11 Florian Fan MD 03:10:01 TYPE AND SCREEN 2020-05-11 Florian Fan MD 02:33:00 CONFIRM ABORH TYPE 2020-05-11 Florian Fan MD 02:33:00 ABORH 2020-05-11 Florian Fan MD 02:33:00 ANTIBODY SCREEN 2020-05-11 Florian Fan MD 02:33:00 CLOT EXPIRATION DATE 2020-05-11 Florian Fan MD on 02:33:00 TMP CROSSMATCH INTERPRETATION 2020-05-11 Florian Fan MD 02:33:00 PREPARE RBC 2020-05-11 Florian Fan MD 01:23:00 PRBC PRODUCT READY FOR INSURANCE COLLECTOR 2020-05-11 Florian Fan MD 01:23:00 XR ABDOMEN 2 VW AP W UPRIGHT AND 2020-05-11 Scooby Mayorga MD OR DECUBITUS 00:47:53 Ramsay RESPIRATORY VIRAL PANEL + 2020-05-11 Folrian Fan MD nderson COVID-19, NASOPHARYNGEAL SWAB 00:08:00 COMPLETE BLOOD COUNT W/ 2020-05-11 Stoney Becerril MD Raoul son DIFFERENTIAL 00:08:00 COMPREHENSIVE METABOLIC PANEL 2020-05-11 Stoney Becerril MD 00:08:00 MAGNESIUM LEVEL 2020-05-11 Stoney Becerril MD 00:08:00 PHOSPHORUS LEVEL 2020-05-11 Stoney Becerril MD 00:08:00 LACTATE DEHYDROGENASE 2020-05-11 Stoney Becerril MD 00:08:00 AMYLASE LEVEL 2020-05-11 Stoney Becerril MD 00:08:00 LIPASE LEVEL 2020-05-11 Stoney Becerril MD 00:08:00 Results CBC 2020-05-11 Stoney Becerril MD 00:08:00 MANUAL DIFFERENTIAL 2020-05-11 Stoney Becerril MD 00:08:00 GLUCOSE LEVEL 2020-05-11 Stoney Becerril MD 00:08:00 BLOOD UREA NITROGEN 2020-05-11 Stoney Becerril MD 00:08:00 ELECTROLYTE PANEL 2020-05-11 Stoney Becerril MD 00:08:00 SERUM CREATININE 2020-05-11 Stoney Becerril MD 00:08:00 .GLOMERULAR FILTRATION RATE 2020-05-11 Stoney Becerril MDrsmichael 00:08:00 CALCIUM LEVEL TOTAL 2020-05-11 Stoney Becerril MD 00:08:00 ALBUMIN LEVEL 2020-05-11 Stoney Becerril MD 00:08:00 ALKALINE PHOSPHATASE 2020-05-11 Stoney Becerril MD 00:08:00 ALANINE AMINOTRANSFERASE 2020-05-11 Stoney Becerril MD rson 00:08:00 ASPARTATE AMINOTRANSFERASE 2020-05-11 Stoney Becerril MD derson 00:08:00 TOTAL PROTEIN 2020-05-11 Stoney Becerril MD 00:08:00 FRACTIONATED BILIRUBIN 2020-05-11 Stoney Becerril MD on 00:08:00 EKG, 12-LEAD (PORTABLE) 2020-05-11 Scooby Mayorga MD Raoul son 00:00:[address] CHEST ABDOMEN PELVIS 2020-04-02 Trina Stevens MD nderson 04:18:17 Mohammad PATHOLOGY OUTSIDE INTERPRETATION 2020-03-30 Chepe Jimenez 00:00:00 Wan Plan of Care Planned Activity Planned Date Details Comments Source Future Scheduled Test 2020-10-[address] [facility] 00:[facility] (#1) [code = [facility] INFLUENZA VACCINE (#1)] Future Scheduled Test 2020-02-[address] [facility] - 00:00:00 (12+) [code = [facility] DEPRESSION SCREENING (12+)] Future Scheduled Test 2020-02-06 FALLS RISK SCREENING [facility] - 00:00:00 [code = FALLS RISK Medical C enter SCREENING] Future Scheduled Test 2020-02-06 Medicare IPPE [facility] (WELCOME TO MEDICARE) [facility] [code = Medicare IPPE (WELCOME TO MEDICARE)] Future Scheduled Test 2009 PNEUMOCOCCAL 65+ YRS [facility] - 00:00:00 (1 of 1 - Medical Center [id number] PCV13) [code = PNEUMOCOCCAL 65+ YRS (1 of 1 - [id number] PCV13)] Future Scheduled Test 1994 SHINGLES VACCINES ([address] [facility] - 00:00:00 of 2) [code = Medical Center SHINGLES VACCINES (1 of 2)] Future Scheduled Test 1963-10-31 DTAP/TDAP/TD VACCINES [facility] - 00:00:00 (1 - Tdap) [code = Medical C enter DTAP/TDAP/TD VACCINES (1 - Tdap)] Future Scheduled Test 1962 HEPATITIS C SCREENING [facility] - 00:00:00 [code = HEPATITIS C Medical Center SCREENING] Future Scheduled Test 1944 [facility]) [code = 582816675] Future Appointment 2022-09-12 Blanca Soares MD, Rojas Patterson 00:00:00 [place] [address] Encounters Start End Encounter Admission Attending Care Care Encounter Source Date/Time Date/Time Type Type Clinicians Facility Department ID 2020-09-16 Outpatient SYSTEM, JOHAN PRADO [id number] 13:53:18 PROVIDER Aaron steele 2020-06-09 Outpatient JOHAN SOARES Nikita/Hep/Nu [id number] 12:00:11 BLANCA steele 2020-05-25 Outpatient SYSTEM, JOHAN PRADO [id number] 11:26:03 PROVIDER Aaron steele 2020-05-17 Outpatient JOHAN GUERRERO Nikita/Hep/Nu [id number] 07:45:58 RONI steele 2020-04-08 Outpatient JOHAN QUACH MDA [id number] 11:58:08 PROVIDER Aaron steele 2020-09-15 2020-09-15 Outpatient EL SUZY II, MDA MDA [id number] 16:13:00 18:03:47 ILIA steele 2020-08-11 2020-09-02 Inpatient EL JESUS, MDA [facility] [id number] 18:01:00 14:44:00 PARTH steele 2020-08-30 2020-08-30 Inpatient EL ETCHEGARAY- MDA MDA [id number] 05:34:27 05:45:59 Aaron COLE 2020-08-27 2020-08-27 Inpatient EL ETCHEGARAY- MDA MDA [id number] 10:35:12 10:38:52 Aaron COLE 2020-08-26 2020-08-26 Inpatient EL ETCHEGARAY- MDA MDA [id number] 04:35:35 04:58:26 Aaron COLE 2020-08-19 2020-08-19 Inpatient ALFREDO, MDA MDA [id number] 14:47:55 15:04:06 LATRICIA steele 2020-08-17 2020-08-17 Inpatient MALLY, MDA MDA [id number] MD 14:10:16 20:25:21 JASAWNT steele 2020-08-12 2020-08-12 Inpatient JOHN RAMOS, MDA MDA [id number] 00:26:34 00:43:47 JEN steele 2020-08-12 2020-08-12 Inpatient JOHN RAMOS, MDA MDA [id number] 00:05:40 00:05:45 JEN steele 2020-07-20 2020-07-20 Outpatient JOHN SHERMAN, MDA MDA [id number] 12:04:47 12:13:06 RETA steele 2020-07-20 2020-07-20 Outpatient EL SUZY II, MDA MDA [id number] 09:22:05 09:22:05 ILIA steele 2020-07-19 2020-07-19 Outpatient EL PISIMISIS, MDA Thoracic [id number] 06:40:00 10:53:00 DREW steele 2020-07-19 2020-07-19 Outpatient EL MDA MDA [id number] MD 09:34:46 09:34:46 Aaron steele 2020-07-19 2020-07-19 Outpatient EL MDA MDA [id number] MD 08:45:41 08:45:41 Aaron steele 2020-07-19 2020-07-19 Outpatient EL SELENA, MDA MDA [id number] MD 08:24:12 08:24:12 DREW steele 2020-07-16 2020-07-16 Outpatient JOHN ILSAS, MDA MDA [id number] MD 12:00:00 23:59:00 MELODY steele 2020-07-16 2020-07-16 Outpatient JOHN ISLAS, MDA MDA [id number] MD 14:04:04 14:11:36 MELODY steele 2020-07-16 2020-07-16 Outpatient JOHN SHERMAN, MDA MDA [id number] MD 10:49:28 11:59:00 RETA steele 2020-07-16 2020-07-16 Outpatient EL SIRISHA, MDA MDA [id number] MD 09:28:57 10:47:22 ALBERT steele 2020-07-16 2020-07-16 Outpatient JOHN ISLAS, MDA MDA [id number] MD 08:23:05 08:23:05 MELODY steele 2020-07-14 2020-07-14 Outpatient JOHN ALMONTE II, MDA MDA [id number] MD 14:55:00 23:59:00 ILIA steele 2020-07-09 2020-07-09 Outpatient JOHN SHERMAN, MDA MDA [id number] 15:29:41 23:59:00 RETA steele 2020-07-09 2020-07-09 Outpatient EL SUZY II, MDA MDA [id number] 14:39:29 15:33:00 ILIA steele 2020-07-07 2020-07-07 Outpatient EL SUZY II, MDA MDA [id number] 09:51:09 09:51:09 ILIA steele 2020-07-06 2020-07-06 Outpatient EL PRANAY, MDA MDA [id number] 15:22:45 15:28:22 RETA steele 2020-07-02 2020-07-02 Outpatient EL SUZY II, MDA MDA [id number] MD 13:22:33 23:59:00 ILIA steele 2020-07-02 2020-07-02 Outpatient EL SUZY II, MDA MDA [id number] MD 12:00:00 13:21:00 ILIA steele 2020-07-02 2020-07-02 Outpatient EL SUZY II, MDA MDA [id number] MD 09:52:23 12:35:00 ILIA steele 2020-07-02 2020-07-02 Outpatient JOHN SHERMAN, MDA MDA [id number] MD 09:15:00 11:59:00 RETA steele 2020-06-11 2020-06-14 Outpatient EL SUZY II, MDA MDA [id number] MD 15:07:06 07:04:10 ILIA steele 2020-06-09 2020-06-09 Outpatient JOHN SHERMAN, MDA MDA [id number] MD 12:30:00 23:59:00 RETA steele 2020-06-09 2020-06-09 Outpatient EL SUZY II, MDA MDA [id number] MD 15:34:26 17:20:13 ILIA steele 2020-06-09 2020-06-09 Outpatient EL SUZY II, MDA MDA [id number] MD 13:52:43 15:44:17 ILIA steele 2020-06-09 2020-06-09 Outpatient EL SUZY II, MDA MDA [id number] MD 12:03:31 12:29:00 ILIA steele 2020-06-09 2020-06-09 Outpatient EL SUZY II, MDA MDA [id number] MD 10:00:00 12:02:00 ILIA steele 2020-06-08 2020-06-08 Outpatient EL COPPOLA, MDA MDA [id number] MD 08:54:00 23:59:00 KAREN steele 2020-06-03 2020-06-03 Outpatient [facility] [id number] [place] [address] 00:00:00 23:59:00 Celeste 2020-06-02 2020-06-02 Outpatient EL JUANITO, MDA MDA [id number] 10:30:00 23:59:00 FLORENTIN steele 2020-06-02 2020-06-02 Outpatient EL SUZY II, MDA MDA [id number] 15:04:36 17:16:51 ILIA steele 2020-06-02 2020-06-02 Outpatient JOHN GRIMM, MDA MDA [id number] 13:02:56 14:06:24 ALBERT steele 2020-06-02 2020-06-02 Outpatient JOHN SOLOMON, MDA MDA [id number] 11:06:33 12:08:51 FLORENTIN mishra n 2020-06-01 2020-06-01 Outpatient EL SANTANA MDA MDA [id number] 07:44:25 23:59:00 [facility] 2020-06-01 Outpatient JOHN REYES, MDA MDA [id number] 12:14:57 15:00:47 AMOR steele 2020-05-24 2020-05-29 Inpatient ER SANTANA MDA GIM [id number] 16:56:00 14:31:00 RAYMUNDO [facility] n 2020-05-29 2020-05-29 Inpatient EL SANTANA MDA MDA [id number] 04:54:53 05:11:52 SCOOBY GARCIA n 2020-05-26 2020-05-27 Inpatient BEATRIZ DÍAZ MDA MDA [id number] 16:17:00 06:50:38 Aaron steele 2020-05-24 2020-05-24 Outpatient COLTON DÍAZN MDA MDA [id number] 15:24:34 17:00:12 Aaron steele 2020-05-24 2020-05-24 Outpatient EL SUZY II, MDA MDA [id number] 15:00:00 16:55:00 ILIA steele 2020-05-21 2020-05-21 Outpatient EL SUZY II, MDA MDA [id number] 12:45:55 23:59:00 ILIA steele 2020-05-21 2020-05-21 Outpatient EL SUZY II, MDA MDA [id number] 11:07:27 13:02:48 ILIA steele 2020-05-21 2020-05-21 Outpatient JOHN FUENTES MDA MDA [id number] 11:09:42 11:09:42 LATRICIA Riosers o cedric 2020-05-10 2020-05-14 Inpatient HOSSEIN FUENTES MDA GIM [id number] 17:59:00 15:28:00 [facility] Raoul so n 2020-05-12 2020-05-12 Inpatient JOHN FUENTES MDA MDA [id number] 21:27:14 21:39:38 LATRICIA Aaron o n 2020-05-11 2020-05-11 Inpatient JOHN DIETRICH MDA MDA [id number] 14:46:24 20:06:19 LATIA steele 2020-04-27 2020-04-27 Outpatient JOHN PRADO MDA [id number] 23:03:13 23:03:13 Aaron steele 2020-03-19 2020-03-19 Emergency [facility] [id number] 18:09:00 20:40:00 Maile Bazan [id number] [place] 4.2.7.2.686 [place] [id number] 2020-03-19 2020-03-19 Orders Doctor JARED [id number] 00:00:00 00:00:00 Only Unassigned, SHELBY 350.1.13.10 [place] [facility] 4.2.7.2.686 [id number] Results Test Description Test Time Test Comments Results Result Comments Source Blood Culture - Port a Cath 2020-09-03 17:14:35 Test Item Value Reference Range Interpretation Comme nts Final Report (test code = 8488) No growth Path Review - Bottle/Isolator (test Culture yield may be affected b y sample code = 8499) quality, prior treatment, and transportation conditions....The results have been reviewed and electronically signed by Pathologist:Christopher Cassidy MD, PhD #[id number] [facility] Interpretation Antibody Screen [id number] 15:23:23 Test Item Value Reference Range Interpretation Comments TMP Auto Neg At the present ABSC Interp time, patient (test code = plasma shows no ____FROYDENISE 7535) evidence of RBC DARLING,Dictat ed by: alloantibodies. COLBY ENG IN,Dictated Date/Time: 08.06 10:23 AM CDT Transcribed [place] e/Time: 09.02.2020 10:2 3 AM CDTElectronical ly Signed By: COLBY HUFF on 09.02.2020 10:2 3 AM MD PattersonTMPam Interpretation [id number] 15:23:22 Test Item Value Reference Range Interpretation Comments TMP XM Interp RBC units (test code = crossmatched for 7566) transfusion appear KIM ASHLEY acceptable. DARLING,Dictated by: COLBY HASTINGS, Dictated Date/Time: 08.06 10:23 AM CDT Transcribed [place] e/Time: 09.02.2020 10:2 3 AM CDTElectronical ly Signed By: DAVID HASTINGS, on 08.06 10:23 AM MD PattersonFractionated [id number] 11:11:23 Test Item Value Reference Range Interpretation Comments Bili Total (test code 4.0 mg/dL See_Comment H Indocy anine Green = 5096) (ICG) may cause falsely elevate d bilirubin resul ts. Total and direc t bilirubin must not be measured from s amples containing indo cyanine green. False el evation of total biliru bin can be seen in kasia ents with IgG concentrations above 28 g/L. [Autom ated message] The sy stem which generated this result transmit horacio reference range : <=1.2. The refe rence range was not u sed to interpret this result as normal/abnor mal. Bili Direct (test code 3.2 mg/dL See_Comment H Indoc yanine Green = 5094) (ICG) may cause falsely elevate d bilirubin resul ts. Total and direc t bilirubin must not be measured from s amples containing indo cyanine green. [Automat ed message] The sy stem which generated this result transmit horacio reference range : <=0.3. The refe rence range was not u sed to interpret this result as normal/abnor mal. Bili Indirect (test 0.8 mg/dL 0.0-0.9 code = 5095) Lab Interpretation Abnormal (test code = 01295-9) MD PattersonGlomerular Filtration [id number] 11:11:21 Test Item Value Reference Range Interpretation Comments eGFR-AA (test code 131 See_Comment Normal eG FR: >= 60 = 8062) mL/min/1.73 m2N ote: The eGFR is calculated u sing the CKD-EPI equatio n. The eGFR declines with a ge. eGFR <60 mL/min/1.73 m2 is considered as "decreased". This equation should only be used for patients 18 and older. According to th e National Kidney [employer] on's Kidney Disease Outcome Quality Initiative (KDO QI) classification and 2012 Kidney Disease Improving Global Outcomes (KDIGO) Clinical Practi ce Guideline, the stage of CK D should be categorized bas ed on estimated GFR. Stage Description GFR mL/min/1.73 m21 Normal or high GFR >=902 Mildly decrease d GFR 60-893a M ildly to moderately decr eased GFR 45-593b Moderat nahid to severely decrea sed GFR 30-444 Severely decreased GFR 15-295 Kid natalio failure <15 [Automa horacio message] The system [employer] generated this result tra nsmitted reference range : >=60 mL/min/1.73 sq. m. The reference range was not used to interpret th is result as normal/abnormal . eGFR-ERIC (test code 114 See_Comment Normal e GFR: >= 60 = 8063) mL/min/1.73 m2N ote: The eGFR is calculated u sing the CKD-EPI equatio n. The eGFR declines with a ge. eGFR <60 mL/min/1.73 m2 is considered as "decreased". This equation should only be used for patients 18 and older. According to th e National Kidney [employer] on's Kidney Disease Outcome Quality Initiative (KDO QI) classification and 2012 Kidney Disease Improving Global Outcomes (KDIGO) Clinical Practi ce Guideline, the stage of CK D should be categorized bas ed on estimated GFR. Stage Description GFR mL/min/1.73 m21 Normal or high GFR >=902 Mildly decrease d GFR 60-893a M ildly to moderately decr eased GFR 45-593b Moderat nahid to severely decrea sed GFR 30-444 Severely decreased GFR 15-295 Kid natalio failure <15 [Automa horacio message] The system [employer] h generated this result tra nsmitted reference range : >=60 mL/min/1.73 sq. m. The reference range was not used to interpret th is result as normal/abnormal . MD PattersonPhosphorus [id number] 11:11:20 Test Item Value Reference Range Interpretation Comments Phosphorus (test code = 6817) 2.9 mg/dL 2.5-4.5 MD PattersonElectrolyte [id number] 11:11:19 Test Item Value Reference Range Interpretation Comments Sodium Lvl (test code = 139 See_Comment [Au tomated message] The 9353) system which ge nerated this result tra nsmitted reference range : 136 - 145 mEq/L. The reference range was not u sed to interpret this result as normal/abnormal . Potassium Lvl (test 3.6 See_Comment [Automa horacio message] The code = 6854) system which ge nerated this result tra nsmitted reference range : 3.5 - 5.1 mEq/L. The reference range was not u sed to interpret this result as normal/abnormal . Chloride (test code = 107 See_Comment [Auto mated message] The 7038) system which ge nerated this result tra nsmitted reference range : 98 - 107 mEq/L. The refe rence range was not u sed to interpret this result as normal/abnormal . CO2 (test code = 5227) 24 See_Comment [Aut omated message] The system which ge nerated this result tra nsmitted reference range : 22 - 29 mEq/L. The refe rence range was not u sed to interpret this result as normal/abnormal . Anion Gap (test code = 8 See_Comment [Aut omated message] The 1466) system which ge nerated this result tra nsmitted reference range : 4 - 14 mEq/L. The refe rence range was not u sed to interpret this result as normal/abnormal . MD PattersonTotal [id number] 11:11:18 Test Item Value Reference Range Interpretation Comments Total Protein (test code = 7649) 5.2 g/dL 6.4-8.3 L Lab Interpretation (test code = Abnormal 27540-2) MD PattersonCalcium [id number] 11:11:17 Test Item Value Reference Range Interpretation Comments Calcium Lvl (test code = 5258) 7.9 mg/dL 8.4-10.2 L Lab Interpretation (test code = Abnormal 13416-1) MD PattersonMagnesium [id number] 11:11:16 Test Item Value Reference Range Interpretation Comments Magnesium (test code = 6359) 2.2 mg/dL 1.6-2.6 MD PattersonAlbumin [id number] 11:11:15 Test Item Value Reference Range Interpretation Comments Albumin Lvl (test code = 2.4 See_Comment L [A utomated message] 7228) The system [employer] generated this result transmitted ref erence range: 3.5 - 5. 2 gm/dL. The refe rence range was not u sed to interpret this result as normal/abnor mal. Lab Interpretation (test Abnormal code = 55722-2) MD PattersonAlkaline [id number] 11:11:14 Test Item Value Reference Range Interpretation Comments Alk Phos (test code = 4768) 831 U/L 35-104 H Lab Interpretation (test code = Abnormal 73048-0) MD PattersonAspartate [id number] 11:11:13 Test Item Value Reference Range Interpretation Comments AST (test code = 4731) 80 U/L See_Comment H [Aut omated message] The system [employer] generated this result transmitted ref erence range: <=32. Th e reference range was not used to int erpret this result as normal/abnormal . Lab Interpretation (test Abnormal code = 29645-6) MD [id number] 11:11:12 Test Item Value Reference Range Interpretation Comments ALT (test code = 4705) 64 U/L See_Comment H [Aut omated message] The system [employer] generated this result transmitted ref erence range: <=33. Th e reference range was not used to int erpret this result as normal/abnormal . Lab Interpretation (test Abnormal code = 75864-5) MD Patterson.Serum [id number] 11:11:10 Test Item Value Reference Range Interpretation Comments Creatinine (test code = 5399) 0.29 mg/dL 0.51-0.95 L Lab Interpretation (test code = Abnormal 75841-3) MD PattersonGlucose [id number] 11:11:09 Test Item Value Reference Range Interpretation Comments Glucose Level (test 87 mg/dL 70-99 Effectiv e 09/01/15, the code = 5699) glucose referen ce intervals have been updated based o n [employer] marisa delines (Standards of M edical Care in Diabete s 2016. Diabetes Care 2 016; 39: S13-S22).Fastin g blood glucose:Normal: 70-99 mg/dLImpaired f asting glucose (increa sed risk for diabetes or pre-diabetes): 100-125 mg/dLDiabetes m ellitus: >/=126 mg/dL Ra ndom blood glucose:N ormal: 70-199 mg/dLNot e: Random glucose >100 mg /dL is associated with increased risk for diabetes MD [id number] 11:11:08 Test Item Value Reference Range Interpretation Comments BUN (test code = 5055) 14 mg/dL 6-23 MD PattersonGsahcuqzAbmnbvdqcshc0786-15-85 10:41:22 Test Item Value Reference Range Interpretation Comments Neutrophil % (test code = 77.6 % 42.0-66.0 H 52439-1) Lymphocyte % (test code = 12.8 % 24.0-44.0 L 737-7) Monocyte % (test code = 6.9 % 2.0-7.0 744-3) Eosinophil % (test code = 1.2 % 1.0-4.0 713-8) Basophil % (test code = 0.7 % 0.0-1.0 707-0) IGRE % (test code = 0.8 % 0.0-0.4 H IGRE % c ount 31522-8) includes Metamyelocytes, Myelocytes, and Promyelocytes. Neutrophil Abs (test code 7.69 K/uL 1.70-7.30 H = 753-4) Lymphocyte Abs (test code 1.27 K/uL 1.00-4.80 = 732-8) Monocyte Abs (test code = 0.68 K/uL 0.08-0.70 743-5) Eosinophil Abs (test code 0.12 K/uL 0.04-0.40 = 712-0) Basophil Abs (test code = 0.07 K/uL 0.00-0.10 705-4) IG Abs (test code = 0.08 K/uL 0.00-0.04 H 25690-0) Lab Interpretation (test Abnormal code = 53758-9) MD Patterson.[id number] 10:41:19 Test Item Value Reference Range Interpretation Comments WBC (test code = 9.9 K/uL 4.0-11.0 6690-2) RBC (test code = 789-8) 2.79 See_Comment L [Au tomated message] The system [employer] generated this result transmitted ref erence range: 4.00 - 5 .50 M/uL. The refer ence range was not u sed to interpret this result as normal/abnor mal. Hgb (test code = 718-7) 8.6 See_Comment L [Au tomated message] The system [employer] generated this result transmitted ref erence range: 12.0 - 1 6.0 gm/dL. The refe rence range was not u sed to interpret this result as normal/abnor mal. Hct (test code = 26.5 % 37.0-47.0 L 4544-3) MPV (test code = 787-2) 9.5 fL 4.0-10.4 MCH (test code = 785-6) 30.8 pg 27.0-31.0 MCHC (test code = 32.5 See_Comment [Automate d message] 786-4) The system [employer] generated this result transmitted ref erence range: 31.0 - 3 6.0 gm/dL. The refe rence range was not u sed to interpret this result as normal/abnor mal. RDW-SD (test code = 64.8 fL 35.1-46.3 H 74387-5) RDW-CV (test code = 19.6 % 12.0-15.5 H 788-0) Platelet count (test 516 K/uL 140-440 H code = 777-3) INRBC (test code = 0.0 % See_Comment The INRBC (instrument 5974) NRBC) value ref lects the enumeration of nucleated red b lood cells contained in a 200uL sampleof whole blood analyzed by the instrument. Thi s value maydiffer from the NRBC value repo rted in a manual differential,wh ich is based on a 100 cell differential. [Automated mess age] The system [employer] generated this result transmitted ref erence range: <=0.0. T he reference range was not used to int erpret this result as normal/abnormal . Lab Interpretation Abnormal (test code = 40850-2) MD PattersonPrepare RBC:G2165, 1 [id number] 22:55:35 Test Item Value Reference Range Interpretation Comments PRBC Product Ready 1 Red Blood Cells (test code = Available - 04308-4) Order Form 03 when ready for product issue. Unit Number (test [id number] code = 7002) Product Code (test J5139A82 code = 7003) Unit Expiration [id number] (test code = 178030) Unit Blood Type 9500 (test code = 7004) Product Code Text RBCIRLR CPD AS1 (test code = 500mL 084189) Crossmatch [id number] Expiration Date (test code = ) Unit Irradiated IRRADIATED (test code = 218133) Dispense Status ISSUED (test code = 7001) Unit Blood Type O Negative (test code = 7005) Product Electrical Controls Technician .BPAM ____ Location (test ___ code = 573159) ___ ____ MD PattersonRBC Product Ready for Pick [id number] 21:54:57 Test Item Value Reference Range Interpretation Comments PRBC Product Ready B2 Blood Bank Product is ready for for Electrical Controls Technician (test olive picker on September 01, code = 022930) 2020 16:54:51 CDT. MD PattersonAntibody [id number] 19:53:37 Test Item Value Reference Range Interpretation Comments ABSC. (test code = 890-4) Negative ABSC MD PattersonRwxhdtunYKUEh6077-98-80 19:53:36 Test Item Value Reference Range Interpretation Comments ABORh. (test code = 882-1) O NEG MD PattersonClot Expiration [id number] 19:53:34 Test Item Value Reference Range Interpretation Comments T & S Expiration (test code = 09/04/2020 5318) MD PattersonCT Head without [id number] 22:03:381. No acute intracranial abnormality. If there is concern for acute stroke, recommend diffusion-weighted imaging. I personally reviewed these image(s) along with the resident's/fellow's interpretations, certify that if a procedure was performed I was physically present, and agree with the final report.Interface, Radiology Results In - 08/29/2020 5:05 PM CDTFormatting of this note might be differentfrom the original.FULL RESULT:EXAMINATION: CT HEAD WO CONTRAST on 08/29/2020 4:23 PMCOMPARISON: NoneHISTORY: Rectal cancerINDICATION: Headache, headache, met evalTECHNIQUE: CT scan of the brain was performed without intravenous contrast as per departmental protocol. FINDINGS: The brain parenchyma is unremarkable. The bustos-white matter differentiation is maintained. There is no evidence for intra-axialor extra-axial hemorrhage. No midline shift or mass effect seen. There is no evidence for hydrocephalus. There is no large acute territorial infarction.There is partial opacification of the mastoids onthe right.IMPRESSION:1. No acute intracranial abnormality. If there is concern for acute stroke, recommend diffusion-weighted imaging.I personally reviewed these image(s) along with the resident's/fellow's interpretations, certify that if a procedure was performed I was physically present, and agree with the final report.MD PattersonRcuphflwEzlrttfahr7561-50-16 01:33:44 Test Item Value Reference Range Interpretation Comments Hgb (test code = 718-7) 8.0 See_Comment L [Au tomated message] The system SolarPrint generated this result transmitted ref erence range: 12.0 - 1 6.0 gm/dL. The refe rence range was not u sed to interpret this result as normal/abnor mal. Lab Interpretation (test Abnormal code = 57990-8) MD PattersonEchocardiogram 2D [id number] 20:31:20Interface, Radiology Results In - 08/26/2020 3:31 PM CDTFormatting of this note might be different f rom the original.Echocardiographic ReportInterpretation SummaryA complete two- dimensional transthoracic echocardiogram was performed (2D, M-mode, Spectral and color Doppler). There is no comparison study available.Normal left ventricular size and systolic function.LV ejection fraction calculated usingthe bi-plane method of disks is 62 %.The right ventricle is normal in size and function.Right ventricular systolic pressure is normal.There is no pericardial effusion.Left Ventricle:Normal left ventricular size and systolic function. Increased LV mass is noted using a 2D method. Increased LV mass is noted using a 2D method. LV mass index: 91.2 g/m2. ( N: 44-88 g/m2 ). LV ejection fraction calculated using the bi-plane method of disks is 62 %.I WMSI = 1.00 % Normal = 100X - Cannot 1 - Normal 2 - 3 - Akinetic 4 - DyskineticInterpret Hypokinetic5 - Eapdafwwkb5Z imaginD volumes were not performed in this study.Cardiac Mechanics/Speckle Tracking Imaging:Speckle tracking imaging was not performed in this study. (Arteriocyte Medical Systems Study).Diastology:Impaired LV relaxationpattern as expected for age.Right Ventricle:The right ventricle is normal in size and function.Atria:The left atrium is borderline dilated. Lipomatous hypertrophy of the interatrial septum is noted.Mitral Valve:Mild thickening changes are noted. There is trace mitral regurgitation.Tricuspid Valve:The tricuspid valve is not well visualized, but is grossly normal. There is mild tricuspid regurgitation.Estimated RVSP is 25-30mmHg. Right ventricular systolic pressure is normal.Aortic Valve:The aortic valve is trileaflet. Mild aortic valve thickening. The aortic valve opens well. There is trace aortic r egurgitation.Pulmonic Valve:The pulmonic valve is not well visualized.Great Vessels:The aortic root is normal size. IVC is small, consistent with intravascular depletion.Pericardium/Pleural:There is nopericardial effusion. A pleural effusion is noted.Preliminary ReviewerPreliminary Interpretation: Christian Vega MD.MMode/2D Measurements IVSd: 0.97 cm LVIDd: 5.0 cm LVPWd: 0.95 cmLV mass(AL)d: 166.8 grams Ao root diam: 3.3 cmLV mass(AL)dI: 91.2 grams/m2 Ao root area: 8.5 iw6NAFD diam: 2.3 cm EDV(MOD-A4C): 89.4 ml ESV(MOD-A4C): 35.6 mlLVOT area: 4.0 cm2 EF(MOD-A4C): 60.2 %EDV(MOD-A2C): 100.2 mlESV(MOD-A2C): 34.4 ml EDV(MOD-bp): 98.6 mlEF(MOD-A2C): 65.6 % ESV(MOD-bp): 37.5ml EF(MOD-bp): 62.0 %LAV(MOD- A2C): 82.7 ml EDV (MOD-bp) Index: 53.9 ml/m2LAV(MOD-A4C): 46.6 mlLAV(MOD-bp): 63.0 mlLAV(MOD-bp) Indexed: 34.4 ml/m2ESV (MOD-bp) Index: 20.5 ml/m2 RWT: 0.38 cmDoppler Measurements MV E max andrea: 67.5 cm/sec MV V2 max: 74.7 cm/secMV A max andrea: 76.7 cm/sec MV max P.2 mmHgMV E/A: 0.88 MV V2 mean: 47.8 cm/sec MV mean P.0 mmHg MV V2 VTI: 15.8 cm MVA(VTI): 4.9 cm2MV P1/2t max andrea: 67.5 cm/sec Ao V2 max: 124.2 cm/secMV P1/2t: 58.8 msec Ao max P.2 mmHgMVA(P1/2t): 3.7 cm2 Ao V2 mean: 67.0 cm/sec Ao mean P.3 mmHgMV dec slope: 336.6 cm/sec2 Ao V2VTI: 20.8 cm CHERYL(I,D): 3.7 cm2 CHERYL(V,D): 3.7 cm2LV V1 max P.3 mmHg MR max andrea: 478.8 cm/secLV V1 mean P.1 mmHgLV V1 max: 115.4 cm/secLV V1 mean: 65.4 cm/secLV V1 VTI: 19.2 cmSV(LVOT): 77.3 ml PA V2 max: 89.3 cm/sec PA max P.2 mmHg PA V2 mean: 53.4 cm/sec PA mean P.4 mmHg PA V2 VTI: 16.2 cmTR max andrea: 252.4 cm/sec RAP systole: 3.0 mmHgTR max P.5 mmHgRVSP(TR): 28.5 mmHgAVA Index (I,D): 2.0 CHERYL Index (V,D): 2.0Dimensionless Index: 0.93 E/e' (avg): 7.7E/e' (lat): 7.1 E/e' (sept): 8.362MD AndersonCT Abdomen Pelvis with [id number] 13:55:32 1. Multiple liver metastases are stable to slightly increased since 08/12/2020. No hepatic abscess can be seen.2. The large confluent mass at the hilum of the liver causes biliary obstruction, despitethe presence of biliary stents.3. The known primary tumors in the descending colon and rectum are again seen.4. Large bilateral pleural effusions and diffuse anasarca.5. Deep venous thrombus extending from the common femoral veins to the caudal aspect of the inferior vena cava filter is again seen. Interface, Radiology Results In - 08/26/2020 8:57 AM CDTFormatting of this note might be differentfrom the original.FULL RESULT:Examination: CT ABDOMEN PELVIS W CONTRAST, 08/26/2020 8:24 AMClinical History: Rectal cancerIndication: E Faecalis bacteremia+ increased LFT. Eval for abdominal source including hepatic abscessComparison: CT abdomen and pelvis 08/12/2020Technique: CT of the abdomen and pelvis was performed with intravenous contrast. Findings:There are stable large bilateral pleural effusions and associated atelectasis at the lung bases.Again identified are multiple liver metastases among some of which are calcified, that are stable to slightly increased since 08/12/2020. A sales solutions representative lesion in segment VIII measures 2.5 cm (series 3 image 28) compared to 1.8 cm previously. The large confluent mass at the hilum of the liver surrounding the portal veins and causing biliary obstruction appears overall stable. No hepatic abscess can be identified.A cutaneous transhepatic biliary catheter extends through the left liver to the duodenum. A biliary stent in the common bile duct extends to the right hepatic ductal system.The spleen, pancreas and adrenal glands are unremarkable.The kidneys function without hydronephrosis.Visualized bowel loops are of normal caliber without obstruction. Soft tissue thickening along the left lateral aspect of the rectum as well as circumferential thickening of the descending colon remains stable and presumed to represent the known primary tumors.An infrarenal inferior vena cava filter is noted. A Pinon catheter is noted within the urinary bladder. There is a linear metallic structure within the uterus that is stable, possibly a retained intrauterine device.There is diffuse anasarca.There are persistent filling defects extending from the common femoral veins to the caudal aspect of the inferior vena cava filter compatible with chronic deep venous thrombus.IMPRESSION:1. Multiple liver metastases are stable to slightly increased since 08/12/2020. No hepaticabscess can be seen.2. The large confluent mass at the hilum of the liver causes biliary obstruction, despite the presence of biliary stents.3. The known primary tumors in the descending colon and rectum are again seen.4. Large bilateral pleural effusions and diffuse anasarca.5. Deep venous thrombus extending from the common femoral veins to the caudal aspect of the inferior vena cava filter is again seen.MD PattersonCreatine [id number] 09:15:20 Test Item Value Reference Range Interpretation Comments CK (test code = 5206) 15 U/L 26-192 L Lab Interpretation (test code = Abnormal 26983-4) MD [id number] 17:28:19 Test Item Value Reference Range Interpretation Comments CEA (test code = 5203) 314.0 ng/mL See_Comment H Refer ence Ranges:Smoker: 0.0 - 5.5Non-Smoker : 0.0 - 3.8 [Automated mess age] The system [employer] generated this result transmit horacio reference range : <=3.8. The reference range was not used to interpret this result as normal/abnormal . Lab Interpretation Abnormal (test code = 87033-6) MD PattersonUrinalysis with [id number] 22:27:02 Test Item Value Reference Interpretation Comments Range UA WBC (test code = NOT SEEN See_Comment [Automa horacio 7904) message] The system which generated this result transmitted reference range : 0 - 2 /HPF. The reference range was not used to interpret this result as normal/abnormal . UA RBC (test code = 1 See_Comment [Automa horacio 7891) message] The system which generated this result transmitted reference range : 0 - 2 /HPF. The reference range was not used to interpret this result as normal/abnormal . UA Mucous (test code NOT SEEN Not Seen-Trace = 7887) /HPF UA Bacteria (test 1+ NOT SEEN /HPF A code = 7870) UA Squam Epi (test 4+ None-Occasiona A code = 7896) l /HPF UA Hyal Cast (test 1 See_Comment [Automat ed code = 7883) message] The system which generated this result transmitted reference range : 0 - 2 /LPF. The reference range was not used to interpret this result as normal/abnormal . UA Yeast (test code 1+ NOT SEEN /HPF A = 7908) ANABELA (test code = Some reporting ANABELA) parameters within the Urinalysis test have changed due to the implementation of new instrumentation in the [facility], allowing greater sensitivity of measurement. Urinalysis results reported by the [facility] using existing instrumentation, as well as Urinalysis testing performed manually or by backup methodology at the [facility] will remain relatively unchanged. New reporting parameters and units will now be reported for all campuses. Lab Interpretation Abnormal (test code = 00032-1) MD PattersonUrinalysis w/Microscopic if [id number] 20:35:37 Test Item Value Reference Range Interpretation Comments UA Color (test code = 7877) Ирина Straw-Yellow A UA Appear (test code = 7868) Clear Clear UA Glucose (test code = 7881) NEG NEG mg/dL UA Bili (test code = 7871) NEG NEG UA Ketones (test code = 7884) NEG NEG mg/dL UA Spec Grav (test code = 7894) 1.009 1.003-1.035 UA Blood (test code = 7872) NEG NEG UA pH (test code = 7909) 6.0 5.0-9.0 UA Protein (test code = 7890) NEG NEG mg/dL UA Urobilinogen (test code = 7903) NEG NEG UA Nitrite (test code = 7888) NEG NEG UA Leuk Est (test code = 7886) NEG NEG Lab Interpretation (test code = Abnormal 21303-0) [facility] Glucose [id number] 05:43:39 Test Item Value Reference Range Interpretation Comments POC Glucose (test 98 mg/dL 70-99 RN Notifie dCapillary code = 97685-6) blood sample s, e.g. obtained by fingerstick, ma y have inaccurate resu lts in patients with d ecreased peripheral bloo d flow. Method descript ion: All results are farhad sured using Electroch emistry test methodolog y. The glucose in the sample mixes with the reagents on the test str ip. The reaction produc es an electric curren t. The amount of curre nt produced is proportional to the glucose concent ration in the blood. PO Sample Type Capillary (test code = 9554) Performing Lab [facility] (test code = of Dennis PABLO And cas [address]) Clinical Lab, [address] [place] [address], [place], [place] [address]; Nut And Bolt Assembler: MD MD Leonardo HearnXR Abdomen 1 View [id number] 17:03:46Large stool in rectosigmoid colon may suggest constipation. Interface, Radiology Results In - 08/21/2020 12:06 PM CDT FULL RESULT:Examination: XR ABDOMEN 1 VW PORTABLE on 08/21/2020 11:52 AMClinical History: Rectal cancerIndication: Abdominal PainComparison: CT on 08/12/2020Technique: XR ABDOMEN 1 VW PORTABLEFindings: Unchanged appearance of rian ateral internal/external biliary drains.Large stool in rectosigmoid colon may suggest constipation. The upstream colon is mildly distended measuring 6.8 cm in diameter.IVC filter in right aspect of lumbar spine noted.Multilevel degenerative changes of the lower lumbar spine noted.IMPRESSION:Large stool in rectosigmoid colon may suggest constipation.MD PattersonCalcium Ionized, Venous 2020-08-21 15:14:29 Test Item Value Reference Range Interpretation Comments V Ion Ca (test code = 63498-8) 1.11 mmol/L 1.15-1.29 L Lab Interpretation (test code = Abnormal 22499-1) MD PattersonIR EXCHANGE OF BILIARY DRAINAGE [id number] 22:23:01Date of Procedure: 08/17/20 Attending Physician: BREA LOFTON MD Reuse Technician: None Pre Procedure Diagnosis: Carcinoma of colon, stage iv [471515] Post Procedure Diagnosis: Unchanged Indication: Rising bilirubin / Inadequate drainage and Cholangitis / Infection Title of Procedure:Percutaneous Image-Guided Exchange of Biliary Drainage Catheter(s). Operative Findings: Percutaneous image-guided exchange of left internal / external biliary drainage catheter(s). Consent: The procedure, risks, indications and alternatives were explained. All questions were answered and informed consent was obtained. I have reviewed the history and physical dictated by the mid-level practitioner / fellow. Sedation/ Anesthesia:Anesthesia provided by Anesthesia Department. Procedure in Detail: A time out was performed prior to the start of the procedure and the correct patient, procedure, presence of consent, site, and side were confirmed with all members of the team. The patient was placed in a supine position on the fluoroscopy table and the upper abdomen and catheter were prepped and draped in the usual sterile fashion. Lidocaine 1% was used for local anesthesia. A tile sprayer view was obtained of the abdomen andcatheter. A cholangiogram was performed through the catheter(s). The existing 10 Filipino left internal / external biliary catheter was cut and was exchanged over a wire for a new 10 Filipino extended side-hole biliary catheter which was formed in the duodenum. The catheter was secured to the skin with suture. Additional Comments: The existing catheter is occluded and retracted into the parenchyma. Estimated Blood Loss: Minimal Specimens Removed: No Immediate Complications: None Disposition: PACU Plan: Catheter to gravity drainage until further notice. Return for routine exchange in 2 monthsMD PattersonProthrombin [id number] 09:12:58 Test Item Value Reference Range Interpretation Comments PT (test code = 6746) 16.5 See_Comment H [Auto mated message] The system [employer] generated this result transmitted ref erence range: 11.5 - 1 3.9 second(s). The reference range was not used to int erpret this result as normal/abnormal . INR (test code = 5973) 1.44 0.90-1.10 H Lab Interpretation (test Abnormal code = 82364-9) MD PattersonOsmolality [id number] 16:43:27 Test Item Value Reference Range Interpretation Comments U Osmolality (test code 354 See_Comment Urin janene osmolality may = 7785) vary widely, de pending on the state of hydration. [place] om urine osmolality can range from 50 to 1400 mOsm/kg H2O depending o n fluid intake. In avinash viduals on average flui d intake, urine osmolalit y is typically 300-9 00 mOsm/kg H2O.Uni ts of measure: mOsm p er Kg of water. [Automa horacio message] The sy stem which generated this result transmit horacio reference range : 50 - 1,400 mOsm/kg H 2O. The reference range was not used to interpr et this result as normal/abnormal . MD PattersonSodium Level, [id number] 11:22:45 Test Item Value Reference Range Interpretation Comments U Sodium (test code = <20 mEq/L Normal range not available 7809) for collections less than 24 hours in dur ation. MD PattersonEsakrdlaVrytbyvfrc3995-21-78 17:21:56 Test Item Value Reference Range Interpretation Comments Osmolality (test code = 273 See_Comment L Unit s in mOsm per kg 6571) of water. [Auto mated message] The sy stem which generated this result transmit horacio reference range : 275 - 300 mOsm/kg H 2O. The reference r shayla was not used to interpret this result as normal/abnor mal. Lab Interpretation (test Abnormal code = 18541-8) MD PattersonDsjlxfeoQzyivxluwd9180-26-35 14:39:31 Test Item Value Reference Range Interpretation Comments Hct (test code = 5860) 28.7 % 37.0-47.0 L Lab Interpretation (test code = Abnormal 05683-6) MD PattersonX-ray Chest 1 View [id number] 13:21:27A moderate to large size left pleural effusion has developed in the interval from the previous study. There is a small right pleural effusion. Opacities in the lower lungs may be due to atelectasis and/or pneumonia. . Interface, Radiology Results In - 08/12/2020 8:23 AM CDT FULL RESULT:Examination: XR CHEST 1 VW PORTABLE, 08/11/2020 11:00 PMCl inical History: Adenocarcinoma of rectumIndication: Confirm PICC placement. Adenocarcinoma the rectum. Metastatic disease to liver.Comparison: 07/19/2020Technique: Single portable anteroposterior radiograph of the chest.Findings:A moderate to large size left pleural effusion has developed in the interval from the previous study. There is a small right pleural effusion. Opacities in the lower lungs maybe due to atelectasis and/or pneumonia. No signs of cavitation. No distinct pulmonary nodules.Degenerative changes of the spine. Sternotomy wires. The aorta is tortuous. The right-sided central line terminates over the region of the right atrium. Catheters are present over the upper abdomen, incompletely imaged.IMPRESSION:A moderate to large size left pleural effusion has developed in the interval from the previous study. There is a small right pleural effusion. Opacities in the lower lungs may be due to atelectasis and/or pneumonia. .MD PattersonCARDIAC CATH REPORT - [id number] 09:42:19 Ordered by an unspecified provider.[facility] DIAGRAM -[id number] 09:42:19Ordered by an unspecified provider.[facility] HospitalComplete Blood Count w/o Iisbqsnnprug2061-16-75 06:31:53 Test Item Value Reference Range Interpretation Comments WBC (test code = 14.2 K/uL 4.0-11.0 H 6690-2) RBC (test code = 789-8) 3.29 See_Comment L [Au tomated message] The system [employer] generated this result transmitted ref erence range: 4.00 - 5 .50 M/uL. The refer ence range was not u sed to interpret this result as normal/abnor mal. Hgb (test code = 718-7) 9.6 See_Comment L [Au tomated message] The system [employer] generated this result transmitted ref erence range: 12.0 - 1 6.0 gm/dL. The refe rence range was not u sed to interpret this result as normal/abnor mal. Hct (test code = 29.9 % 37.0-47.0 L 4544-3) MPV (test code = 787-2) 9.7 fL 4.0-10.4 MCH (test code = 785-6) 29.2 pg 27.0-31.0 MCHC (test code = 32.1 See_Comment [Automate d message] 786-4) The system [employer]Print generated this result transmitted ref erence range: 31.0 - 3 6.0 gm/dL. The refe rence range was not u sed to interpret this result as normal/abnor mal. RDW-SD (test code = 61.3 fL 35.1-46.3 H 08273-3) RDW-CV (test code = 18.6 % 12.0-15.5 H 788-0) Platelet count (test 494 K/uL 140-440 H code = 777-3) INRBC (test code = 0.0 % See_Comment The INRBC (instrument 5974) NRBC) value ref lects the enumeration of nucleated red b lood cells contained in a 200uL sampleof whole blood analyzed by the instrument. Thi s value maydiffer from the NRBC value reported in a m anual differential,wh ich is based on a 100 cell differential. [Automated mess age] The system [employer] generated this result transmitted ref erence range: <=0.0. T he reference range was not used to int erpret this result as normal/abnormal . Lab Interpretation Abnormal (test code = 71201-0) MD PattersonInfluenza A/B + COVID-19 Asymptomatic- [id number] 00:35:46 Test Item Value Reference Range Interpretation Comments COVID19 Not Detected Not Detected (SARS-CoV-2) (test code = 33930-0) Influenza A (test Not Detected Not Detected code = 19214-9) Influenza B (test Not Detected Not Detected code = 56694-0) COVID19 SARS Inpatient Indication (test Admission code = 88888) Inf AB+Cov19 See Note The zana SARS- CoV-2 Comment (test & Influenza A/ B code = 84846) nucleic acid t est for use on the madeline s Louise System is a mul tiplex real-time RT-PC R assay intended for the simultaneou s, qualitative det ection and differentia l of SARS-CoV-2 (COVID-19), inf luenza A, and influenz a B viral RNA in nasopharyngeal swabs in transport me nikki from patients suspected of luna ving a respiratory inf ection with one of the se viruses or poss ibly exposure to COV ID-19 by a healthcare provider. Resul ts must be interpr eted within the cont ext of all relevant cl inical and laboratory findings and sh ould not form the so le basis for a nikki gnosis or treatment decision. A fac t sheet for patie nts provided by the cattle dealer ([employer] can be rev iewed at: https://www.[facility] .gov/m edia/770329/ina nloadA fact sheet for Health Care providers is provided by the cattle dealer ([employer] and can be reviewed at: https://www.fda .gov/m edia/344273/ina nload Influenza A and Influenza B neg ative results should be considered presumptive in samples that luna ve a positive SARS-C oV-2 result. If co-infection wi th influenza A or influenza B vir us is suspected in sa mples with a positive SARS-CoV-2 resu lts, the sample tannau ld be re-tested with another approve d influenza test. This assay has been authorized by t [facility] for use only un deion Emergency Use Authorization ( EUA) in laboratories that have been CLIA-certified to perform moderate-comple xity and high-comple xity tests. The Microbiology Laboratory at [facility], CLIA Accreditation #[id number] and CAP Accreditation #[id number], verif ied the performance characteristics of this assay. Int ernal controls are us ed to monitor all sta ges of the test proces sElmer PattersonECG 12 [id number] 14:53:20Interface, External Ris In - 08/11/2020 2:53 PM CDTVentricular Rate 120 BPMAtrial Rate 122 BPMQRS Duration 118 msQ-T Interval 312 msQTC Calculation(Bazett) 440 msR [place] -46 degreesT [place] 234 degreesAtrial fibrillation with rapid ventricular responseLeft axis deviationLow voltage QRSRight bundle branch blockSeptal infarct , age undeterminedT wave abnormality, consider inferolateral ischemiaAbnormal ECGCompared with prior ECG from 10-Aug-2020 no signifiant changesConfirmed by Ben Liang ([id number]) on 08/11/2020 2:53:18 [facility] 2020-08-11 11:21:00Reason for exam:->post-opShould this be performed at the bedside?->[facility]ORT[facility] : 1945 Sex: FFINAL REPORT CLINICAL HISTORY: post-op TECHNIQUE: 1 view of the chest. COMPARISON: 08/10/2020 IMPRESSION: The right chest wall port is unchanged. Left asymmetric pleural-parenchymal opacities are unchanged. The cardiomediastinal silhouette is magnified by technique with sternotomy wires. Signed: Rosa Pompa Verified Date/Time: 08/11/2020 11:21:50 Reading Location: [facility] Radiology Reading Room XR chest 1 view portable / [id number] 11:21:00 Interface, External Ris In - 08/11/2020 11:24 AM CDTFINAL REPORT CLINICAL HISTORY: post-op TECHNIQUE: 1 view of the chest. COMPARISON: 08/10/2020 IMPRESSION: The right chest wall port is unchanged. Left asymmetric pleural-parenchymal opacities are unchanged. The cardiomediastinal silhouette is magnified by technique with sternotomy wires. Signed: Rosa Pompa Verified Date/Time: 08/11/2020 11:21:50 Reading Location: [facility] Radiology Reading Room [facility] [id number] 10:55:00 Test Item Value Reference Range Interpretation Comments POC-Glucose Meter (test 103 mg/dL 70-110 : TE STED AT [facility] code = 1538) [address] [facility], [address]70 30: Printing Sales Representative/Techni nael ID = [id number] for Aneke (pca2), L michael Lab Interpretation (test Normal code = 34627-9) [facility] HospitalPOCT-GLUCOSE [id number] 10:55:00 Test Item Value Reference Range Interpretation Comments POC-GLUCOSE METER 103 mg/dL 70-110 : TESTED A T [facility] 6720 (BEAKER) (test code = LUCY Omer [facility], 1538) [address]: Printing Sales Representative/Techni nael ID = [id number] for An suraj (pca2)Rosy HEMORRHAGE IMAGING, [id number] 09:36:00Unlisted Reason for Exam - Click Yes and Enter Reason Below->No [facility] : 1945 Sex: FFINAL REPORT PROCEDURE: HEMORRHAGE STUDY with RBCs CPT CODE: 59460 INDICATION: Gastrointestinal Bleeding, hematochezia PROTOCOL: 20.9 mCi of Tc-99m was injected intravenously as labeled autologous red blood cells. Flow images of the abdomen were obtained, followed by serial images for approximately 60 minutes. Additional images were obtained 5 and 19 hours after tracer injection. FINDINGS: All images show persistent mild tracer activity in the left and lower central abdomen. IMPRESSION:1. No evidence of active hemorrhage is identified.2. Persistent activity suggests angiodysplasia of small bowel. Signed: Lawrence Schmitz MDReport Verified Date/Time: 08/11/2020 09:36:58 Reading Location: [address] Reading Room Electronically s igned by: LAWRENCE SCHMITZ MD on 08/11/2020 09:36 AMNM GI bleed study 2020-08-11 09:36:00Interface, External Ris In - 08/11/2020 10:28 AM CDTFINAL REPORT PROCEDURE: HEMORRHAGE STUDY with RBCs CPT CODE: 12599 INDICATION: Gastrointestinal Bleeding, hematochezia PROTOCOL: 20.9 mCi of Tc-99m was injected intravenously as labeled autologous red bl ood cells. Flow images of the abdomen were obtained, followed by serial images for approximately 60 minutes. Additional images were obtained 5 and 19 hours after tracer injection. FINDINGS: All images show persistent mild tracer activity in the left and lower central abdomen. IMPRESSION:1. No evidence of active hemorrhage is identified.2. Persistent activity suggests angiodysplasia of small bowel. Signed: Lawrence Schmitz MDReport Verified Date/Time: 08/11/2020 09:36:58 Reading Location: [address] Reading Room [facility] metabolic [id number] 04:55:00 Test Item Value Reference Range Interpretation Comments Sodium (test code = 129 meq/L 136-145 L 2951-2) Potassium (test code 5.1 meq/L 3.5-5.1 = 2823-3) Chloride (test code = 100 meq/L 98-107 2075-0) CO2 (test code = 21 meq/L 22-29 L 2028-9) BUN (test code = 17 mg/dL 7-21 3094-0) Creatinine (test code 0.52 mg/dL 0.57-1.25 L = 2160-0) Glucose (test code = 94 mg/dL 70-105 2345-7) Calcium (test code = 7.4 mg/dL 8.4-10.2 L 29732-0) EGFR (test code = 139 mL/min/1.73 [place] [address]-0) NOT ACCURATE CREATININE CLEARANCE IN PREDICTING GLOMERULAR FILTRATION RATE . ESTIMATED GFR I S NOT APPLICABLE FOR DIALYSIS PATIENTS. ANABELA (test code = ANABELA) Printing Sales Representative ID - KYMBERLY WSpecimen moderately icteric Lab Interpretation Abnormal (test code = 84544-9) [facility] HospitalBASIC METABOLIC [id number] 04:55:00 Test Item Value Reference Range Interpretation Comments SODIUM (BEAKER) 129 meq/L 136-145 L (test code = 381) POTASSIUM (BEAKER) 5.1 meq/L 3.5-5.1 (test code = 379) CHLORIDE (BEAKER) 100 meq/L 98-107 (test code = 382) CO2 (BEAKER) (test 21 meq/L 22-29 L code = 355) BLOOD UREA NITROGEN 17 mg/dL 7-21 (BEAKER) (test code = 354) CREATININE (BEAKER) 0.52 mg/dL 0.57-1.25 L (test code = 358) GLUCOSE RANDOM 94 mg/dL 70-105 (BEAKER) (test code = 652) CALCIUM (BEAKER) 7.4 mg/dL 8.4-10.2 L (test code = 697) EGFR (BEAKER) (test 139 mL/min/1.73 ESTIM ATED GFR IS code = 1092) sq m NOT ACCURATE CREATININE CLEARANCE IN PREDICTING GLOMERULAR FILTRATION RATE . ESTIMATED GFR I S NOT APPLICABLE FOR DIALYSIS PATIEN TS. Printing Sales Representative ID - KYMBERLY WSpecimen moderately qjxivpsJfjfeoaay0571-70-02 04:54:00 Test Item Value Reference Range Interpretation Comments Magnesium (test code = 1.9 mg/dL 1.6-2.6 58280-0) ANABELA (test code = ANABELA) Printing Sales Representative ID Nikolay Lozano Lab Interpretation (test Normal code = 81628-2) [facility] HospitalPhosphorus2021-07-07 04:54:00 Test Item Value Reference Range Interpretation Comments Phosphorus (test code = 3.5 mg/dL 2.3-4.7 2777-1) ANABELA (test code = ANABELA) Printing Sales Representative ID - KYMBERLY W Lab Interpretation (test Normal code = 37089-8) [facility] HospitalMAGNESIUM2021-07-07 04:54:00 Test Item Value Reference Range Interpretation Comments MAGNESIUM (BEAKER) (test code = 1.9 mg/dL 1.6-2.6 627) Printing Sales Representative ID Nikolay TRAYLOR [id number] 04:54:00 Test Item Value Reference Range Interpretation Comments PHOSPHORUS (BEAKER) (test code = 3.5 mg/dL 2.3-4.7 604) Printing Sales Representative ID - KYMBERLY [id number] 04:12:00 Test Item Value Reference Range Interpretation Comments PTT (test code = 36.9 See_Comment H [Automated message] 70981-3) The system [employer] generated this result transmitted ref erence range: 22.5 - 3 6.0 seconds. The reference range was not used to int erpret this result as normal/abnormal . Lab Interpretation (test Abnormal code = 74479-2) [facility] HospitalAPTT2021-07-07 04:12:00 Test Item Value Reference Range Interpretation Comments PARTIAL THROMBOPLASTIN TIME 36.9 seconds 22.5-36.0 H (BEAKER) (test code = 760) Prothrombin time/[id number] 04:11:00 Test Item Value Reference Interpretation Comments Range Protime (test code = 17.4 See_Comment H [Autom ated 2042-2) message] The system which generated this result transmitted reference range : 11.9 - 14.2 seconds. The reference range was not used to interpret this result as normal/abnormal . INR (test code = 1.45 See_Comment [Automated 8813-6) message] The system which generated this result transmitted reference range : <=5.90. The reference range was not used to interpret this result as normal/abnormal . ANABELA (test code = RECOMMENDED ANABELA) COUMADIN/WARFARIN INR THERAPY RANGESSTANDARD DOSE: 2.0 - 3.0 Includes: PROPHYLAXIS for venous thrombosis, systemic embolization; TREATMENT for venous thrombosis and/or pulmonary embolus.HIGH RISK: Target INR is 2.5-3.5 for patients with mechanical heart valves. Lab Interpretation Abnormal (test code = 18733-3) [facility] HospitalPROTHROMBIN TIME/[id number] 04:11:00 Test Item Value Reference Range Interpretation Comments PROTIME (BEAKER) 17.4 seconds 11.9-14.2 H (test code = 759) INR (BEAKER) (test 1.45 See_Comment [Automat ed message] code = 370) The system [employer] generated this result transmitted ref erence range: <=5.90. The reference range was not used to int erpret this result as normal/abnormal . RECOMMENDED COUMADIN/WARFARIN INR THERAPY RANGESSTANDARD DOSE: 2.0 - 3.0 Includes: PROPHYLAXIS forvenous thrombosis, systemic embolization; TREATMENT for venous thrombosis and/or pulmonary embolus.HIGH RISK: Target INR is 2.5-3.5 for patients with mechanical heart valves.CBC (Hemogram only)2020-08-11 04:02:00 Test Item Value Reference Range Interpretation Comments WBC (test code = 6690-2) 16.5 See_Comment H [A utomated message] The system [employer] generated this result transmitted ref erence range: 3.5 - 10 .5 K/L. The refe rence range was not u sed to interpret this result as normal/abnor mal. RBC (test code = 789-8) 3.39 See_Comment L [Au tomated message] The system [employer] generated this result transmitted ref erence range: 3.93 - 5 .22 M/L. The refe rence range was not u sed to interpret this result as normal/abnor mal. MCHC (test code = 786-4) 32.7 See_Comment L [A utomated message] The system [employer] generated this result transmitted ref erence range: 32.2 - 3 5.5 GM/DL. The refe rence range was not u sed to interpret this result as normal/abnor mal. Hematocrit (test code = 30.3 % 34.1-44.9 L 4544-3) MCV (test code = 787-2) 89.4 fL 79.4-94.8 MCH (test code = 785-6) 29.2 pg 25.6-32.2 RDW (test code = 788-0) 18.7 % 11.7-14.4 H Platelets (test code = 492 See_Comment H [Aut omated message] 777-3) The system [employer] generated this result transmitted ref erence range: 150 - 45 0 K/CU MM. The referen ce range was not u sed to interpret this result as normal/abnor mal. MPV (test code = 9.2 fL 9.4-12.3 L 74211-0) nRBC (test code = 413) 0 See_Comment [Aut omated message] The system [employer] generated this result transmitted ref erence range: 0 - 0 /1 00 WBC. The refere nce range was not u sed to interpret this result as normal/abnor mal. Lab Interpretation (test Abnormal code = 75980-8) [facility] HospitalCBC (HEMOGRAM ONLY)2020-08-11 04:02:00 Test Item Value Reference Range Interpretation Comments WHITE BLOOD CELL COUNT (BEAKER) 16.5 K/ L 3.5-10.5 H (test code = 775) RED BLOOD CELL COUNT (BEAKER) 3.39 M/ L 3.93-5.22 L (test code = 761) HEMOGLOBIN (BEAKER) (test code = 9.9 GM/DL 11.2-15.7 L 410) HEMATOCRIT (BEAKER) (test code = 30.3 % 34.1-44.9 L 411) MEAN CORPUSCULAR VOLUME (BEAKER) 89.4 fL 79.4-94.8 (test code = 753) MEAN CORPUSCULAR HEMOGLOBIN 29.2 pg 25.6-32.2 (BEAKER) (test code = 751) MEAN CORPUSCULAR HEMOGLOBIN CONC 32.7 GM/DL 32.2-35.5 (BEAKER) (test code = 752) RED CELL DISTRIBUTION WIDTH 18.7 % 11.7-14.4 H (BEAKER) (test code = 412) PLATELET COUNT (BEAKER) (test 492 K/CU MM 150-450 H code = 756) MEAN PLATELET VOLUME (BEAKER) 9.2 fL 9.4-12.3 L (test code = 754) NUCLEATED RED BLOOD CELLS 0 /100 WBC 0-0 (BEAKER) (test code = 413) CBC (HEMOGRAM ONLY)2020-08-10 21:58:00 Test Item Value Reference Range Interpretation Comments WHITE BLOOD CELL COUNT (BEAKER) 20.9 K/ L 3.5-10.5 H (test code = 775) RED BLOOD CELL COUNT (BEAKER) 4.09 M/ L 3.93-5.22 (test code = 761) HEMOGLOBIN (BEAKER) (test code = 12.2 GM/DL 11.2-15.7 410) HEMATOCRIT (BEAKER) (test code = 37.8 % 34.1-44.9 411) MEAN CORPUSCULAR VOLUME (BEAKER) 92.4 fL 79.4-94.8 (test code = 753) MEAN CORPUSCULAR HEMOGLOBIN 29.8 pg 25.6-32.2 (BEAKER) (test code = 751) MEAN CORPUSCULAR HEMOGLOBIN CONC 32.3 GM/DL 32.2-35.5 (BEAKER) (test code = 752) RED CELL DISTRIBUTION WIDTH 19.1 % 11.7-14.4 H (BEAKER) (test code = 412) PLATELET COUNT (BEAKER) (test 505 K/CU MM 150-450 H code = 756) MEAN PLATELET VOLUME (BEAKER) 9.2 fL 9.4-12.3 L (test code = 754) NUCLEATED RED BLOOD CELLS 0 /100 WBC 0-0 (BEAKER) (test code = 413) RAD, CHEST, 1 VIEW, NON [id number] 12:43:00Reason for exam:->post-opShould this be performed at the bedside?->Yes [facility] : 1945 Sex: FFINAL REPORT CLINICAL HISTORY: post-op TECHNIQUE: 1 view of the chest. COMPARISON: 08/09/2020 IMPRESSION: The right central line is unchanged. Left asymmetric pleural-parenchymal opacities are unchanged. The cardiomediastinal silhouette is magnified by technique with sternotomy wires. Signed: Rosa Pompa MDReport Verified Date/Time: 08/10/2020 12:43:19 Reading Location: [facility] Radiology Reading Room BASIC METABOLIC [id number] 06:32:00 Test Item Value Reference Range Interpretation Comments SODIUM (BEAKER) 129 meq/L 136-145 L (test code = 381) POTASSIUM (BEAKER) 4.7 meq/L 3.5-5.1 (test code = 379) CHLORIDE (BEAKER) 100 meq/L 98-107 (test code = 382) CO2 (BEAKER) (test 23 meq/L 22-29 code = 355) BLOOD UREA NITROGEN 14 mg/dL 7-21 (BEAKER) (test code = 354) CREATININE (BEAKER) 0.44 mg/dL 0.57-1.25 L (test code = 358) GLUCOSE RANDOM 97 mg/dL 70-105 (BEAKER) (test code = 652) CALCIUM (BEAKER) 7.1 mg/dL 8.4-10.2 L (test code = 697) EGFR (BEAKER) (test 169 mL/min/1.73 ESTIM ATED GFR IS code = 1092) sq m NOT ACCURATE CREATININE CLEARANCE IN PREDICTING GLOMERULAR FILTRATION RATE . ESTIMATED GFR I S NOT APPLICABLE FOR DIALYSIS PATIEN TS. Printing Sales Representative ID - DBSpecimen moderately [id number] 06:31:00 Test Item Value Reference Range Interpretation Comments MAGNESIUM (BEAKER) (test code = 1.8 mg/dL 1.6-2.6 627) Printing Sales Representative ID - [id number] 06:31:00 Test Item Value Reference Range Interpretation Comments PHOSPHORUS (BEAKER) (test code = 3.0 mg/dL 2.3-4.7 604) Printing Sales Representative ID - DBPROTHROMBIN TIME/[id number] 06:14:00 Test Item Value Reference Range Interpretation Comments PROTIME (BEAKER) 17.9 seconds 11.9-14.2 H (test code = 759) INR (BEAKER) (test 1.50 See_Comment [Automat ed message] code = 370) The system [employer] generated this result transmitted ref erence range: <=5.90. The reference range was not used to int erpret this result as normal/abnormal . RECOMMENDED COUMADIN/WARFARIN INR THERAPY RANGESSTANDARD DOSE: 2.0 - 3.0 Includes: PROPHYLAXIS forvenous thrombosis, systemic embolization; TREATMENT for venous thrombosis and/or pulmonary embolus.HIGH RISK: Target INR is 2.5-3.5 for patients with mechanical heart valves.[id number] 06:14:00 Test Item Value Reference Range Interpretation Comments PARTIAL THROMBOPLASTIN TIME 40.0 seconds 22.5-36.0 H (BEAKER) (test code = 760) CBC (HEMOGRAM ONLY)2020-08-10 06:03:00 Test Item Value Reference Range Interpretation Comments WHITE BLOOD CELL COUNT (BEAKER) 16.8 K/ L 3.5-10.5 H (test code = 775) RED BLOOD CELL COUNT (BEAKER) 3.25 M/ L 3.93-5.22 L (test code = 761) HEMOGLOBIN (BEAKER) (test code = 9.5 GM/DL 11.2-15.7 L 410) HEMATOCRIT (BEAKER) (test code = 28.8 % 34.1-44.9 L 411) MEAN CORPUSCULAR VOLUME (BEAKER) 88.6 fL 79.4-94.8 (test code = 753) MEAN CORPUSCULAR HEMOGLOBIN 29.2 pg 25.6-32.2 (BEAKER) (test code = 751) MEAN CORPUSCULAR HEMOGLOBIN CONC 33.0 GM/DL 32.2-35.5 (BEAKER) (test code = 752) RED CELL DISTRIBUTION WIDTH 18.7 % 11.7-14.4 H (BEAKER) (test code = 412) PLATELET COUNT (BEAKER) (test 445 K/CU MM 150-450 code = 756) MEAN PLATELET VOLUME (BEAKER) 9.6 fL 9.4-12.3 (test code = 754) NUCLEATED RED BLOOD CELLS 0 /100 WBC 0-0 (BEAKER) (test code = 413) Prepare Leuko-Red [id number] 23:54:00 Test Item Value Reference Range Interpretation Comments CROSSMATCH (test code = 2264) COMPATIBLE Unit ABO (test code = O Neg 7147424) UNIT NUMBER (test code = [id number] 934-0) Status (test code = 7405408) TX_TIMEINCHART Blood Bank Product (test code RED BLOOD CELLS = 2263) PRODUCT CODE (test code = T5443Q74 933-2) [facility] HospitalThromboelastograph (TEG)2020-08-09 15:00:00 Test Item Value Reference Range Interpretation Comments TEG Activated Clotting 5.4 See_Comment [Aut omated message] Time (test code = The system which 58069-0) generated this result transmitted ref erence range: 4.0 - 7. 0 minutes. The reference range was not used to int erpret this result as normal/abnormal . TEG Fibrinogen Activity 56.5 See_Comment L [Au tomated message] (test code = 96644-9) The sy stem which generated this result transmitted ref erence range: 61.0 - 7 3.0 degrees. The reference range was not used to int erpret this result as normal/abnormal . TEG Platelet Aggregation 72.2 See_Comment H [A utomated message] (test code = 33218-8) The sy stem which generated this result transmitted ref erence range: 55.0 - 6 5.0 MM. The referen ce range was not u sed to interpret this result as normal/abnor mal. TEG Fibrinolysis (test 0.0 % 0-5 code = 22571-8) TEG-H Activated Clotting 8.8 See_Comment H [A utomated message] Time (test code = 1411) The system which generated this result transmitted ref erence range: 4.0 - 7. 0 minutes. The reference range was not used to int erpret this result as normal/abnormal . TEG-H Fibrinogen 61.8 See_Comment [Automated message] Activity (test code = The sy stem which 1412) generated this result transmitted ref erence range: 61.0 - 7 3.0 degrees. The reference range was not used to int erpret this result as normal/abnormal . TEG-H Platelet 71.9 See_Comment H [Automated m essage] Aggregation (test code = The system which 1413) generated this result transmitted ref erence range: 55.0 - 6 5.0 MM. The referen ce range was not u sed to interpret this result as normal/abnor mal. TEG-H Fibrinolysis (test 0.5 % 0-5 code = 1414) Lab Interpretation (test Abnormal code = 06684-1) [facility] HospitalTHROMBOELASTOGRAPH (TEG)2020-08-09 15:00:00 Test Item Value Reference Range Interpretation Comments TEG ACTIVATED CLOTTING TIME 5.4 minutes 4.0-7.0 (BEAKER) (test code = 1407) TEG FIBRINOGEN ACTIVITY (BEAKER) 56.5 degrees 61.0-73.0 L (test code = 1408) TEG PLT. AGGREGATION (BEAKER) 72.2 MM 55.0-65.0 H (test code = 1409) TEG FIBRINOLYSIS (BEAKER) (test 0.0 % 0.0-5.0 code = 1410) TGH ACTIVATED CLOTTING TIME 8.8 minutes 4.0-7.0 H (BEAKER) (test code = 1411) TGH FIBRINOGEN ACTIVITY (BEAKER) 61.8 degrees 61.0-73.0 (test code = 1412) TGH PLT. AGGREGATION (BEAKER) 71.9 MM 55.0-65.0 H (test code = 1413) TGH FIBRINOLYSIS (BEAKER) (test 0.5 % 0.0-5.0 code = 1414) Hemoglobin and [id number] 13:06:00 Test Item Value Reference Range Interpretation Comments Hemoglobin (test code 9.9 See_Comment L [Auto mated = 786-4) message] The system which generated this result transmit horacio reference range : 11.2 - 15.7 GM/ DL. The reference range was not u sed to interpret th is result as normal/abnormal . Hematocrit (test code 29.9 % 34.1-44.9 L = 4544-3) ANABELA (test code = ANABELA) Printing Sales Representative ID - [id number] Lab Interpretation Abnormal (test code = 81716-8) [facility] HospitalHEMOGLOBIN AND [id number] 13:06:00 Test Item Value Reference Range Interpretation Comments HEMOGLOBIN (BEAKER) (test code = 9.9 GM/DL 11.2-15.7 L 410) HEMATOCRIT (BEAKER) (test code = 29.9 % 34.1-44.9 L 411) Printing Sales Representative ID - 6000RAD, CHEST, 1 VIEW, NON [id number] 09:20:00Reason for exam:->post-opShould this be performed at the bedside?->Yes [facility] : 1945 Sex: FFINAL REPORT RAD, CHEST, 1 VIEW, NON DEPT CLINICAL INDICATION: post-op TECHNIQUE: AP view of the chest COMPARISON: Radiograph 08/08/2020 FINDINGS: Right- sided Mediport is unchanged. Sternotomy wires and right upper mediastinal surgical clips unchanged. Persistent left pleural effusion obscuring the left hemidiaphragm. Bibasilar atelectasis is slightly decreased. No new focal consolidation or pneumothorax. Cardiomediastinal silhouette, rio, and pulmonary vasculature are unchanged. IMPRESSION:No significant interval change. Signed: Usama Garciaepелена Verified Date/Time: 08/09/2020 09:20:22 Hepatic function [id number] 06:48:00 Test Item Value Reference Range Interpretation Comments Protein, Total (test 4.8 See_Comment L [Autom ated code = 2885-2) message] The system which generated this result transmitted reference range : 6.0 - 8.3 gm/dL . The reference range was not used to interpr et this result as normal/abnormal . Albumin (test code = 1.6 g/dL 3.5-5 L 43076-6) Total Bilirubin (test 7.0 mg/dL 0.2-1.2 H code = 1974-2) Bilirubin, Direct 5.4 mg/dL 0.1-0.5 H (test code = 1967-7) Alkaline Phosphatase 561 U/L 40-150 H (test code = 6768-6) AST (test code = 43 U/L 5-34 H 1920-8) ALT (test code = 25 U/L 6-55 1742-6) ANABELA (test code = ANABELA) Printing Sales Representative ID - BRYAN Eldridge moderately icteric Lab Interpretation Abnormal (test code = 08946-5) [facility] HospitalHEPATIC FUNCTION [id number] 06:48:00 Test Item Value Reference Range Interpretation Comments TOTAL PROTEIN (BEAKER) (test code = 4.8 gm/dL 6.0-8.3 L 770) ALBUMIN (BEAKER) (test code = 1145) 1.6 g/dL 3.5-5.0 L BILIRUBIN TOTAL (BEAKER) (test code 7.0 mg/dL 0.2-1.2 H = 377) BILIRUBIN DIRECT (BEAKER) (test 5.4 mg/dL 0.1-0.5 H code = 706) ALKALINE PHOSPHATASE (BEAKER) (test 561 U/L 40-150 H code = 346) AST (SGOT) (BEAKER) (test code = 43 U/L 5-34 H 353) ALT (SGPT) (BEAKER) (test code = 25 U/L 6-55 347) Printing Sales Representative ID - BRYAN Eldridge moderately ictericBASIC METABOLIC [id number] 06:36:00 Test Item Value Reference Range Interpretation Comments SODIUM (BEAKER) 129 meq/L 136-145 L (test code = 381) POTASSIUM (BEAKER) 4.6 meq/L 3.5-5.1 (test code = 379) CHLORIDE (BEAKER) 99 meq/L 98-107 (test code = 382) CO2 (BEAKER) (test 22 meq/L 22-29 code = 355) BLOOD UREA NITROGEN 13 mg/dL 7-21 (BEAKER) (test code = 354) CREATININE (BEAKER) 0.44 mg/dL 0.57-1.25 L (test code = 358) GLUCOSE RANDOM 93 mg/dL 70-105 (BEAKER) (test code = 652) CALCIUM (BEAKER) 7.5 mg/dL 8.4-10.2 L (test code = 697) EGFR (BEAKER) (test 169 mL/min/1.73 ESTIM ATED GFR IS code = 1092) sq m NOT ACCURATE CREATININE CLEARANCE IN PREDICTING GLOMERULAR FILTRATION RATE . ESTIMATED GFR I S NOT APPLICABLE FOR DIALYSIS PATIEN TS. Printing Sales Representative ID - PIAYA LSpecimen moderately [id number] 06:04:00 Test Item Value Reference Range Interpretation Comments MAGNESIUM (BEAKER) (test code = 2.5 mg/dL 1.6-2.6 627) Printing Sales Representative ID - BRYAN [id number] 06:04:00 Test Item Value Reference Range Interpretation Comments PHOSPHORUS (BEAKER) (test code = 2.8 mg/dL 2.3-4.7 604) Printing Sales Representative ID - BRYAN [id number] 05:44:00 Test Item Value Reference Range Interpretation Comments PARTIAL THROMBOPLASTIN TIME 38.7 seconds 22.5-36.0 H (BEAKER) (test code = 760) PROTHROMBIN TIME/[id number] 05:43:00 Test Item Value Reference Range Interpretation Comments PROTIME (BEAKER) 17.2 seconds 11.9-14.2 H (test code = 759) INR (BEAKER) (test 1.43 See_Comment [Automat ed message] code = 370) The system [employer] generated this result transmitted ref erence range: <=5.90. The reference range was not used to int erpret this result as normal/abnormal . RECOMMENDED COUMADIN/WARFARIN INR THERAPY RANGESSTANDARD DOSE: 2.0 - 3.0 Includes: PROPHYLAXIS forvenous thrombosis, systemic embolization; TREATMENT for venous thrombosis and/or pulmonary embolus.HIGH RISK: Target INR is 2.5-3.5 for patients with mechanical heart valves.CBC (HEMOGRAM ONLY)2020-08-09 05:30:00 Test Item Value Reference Range Interpretation Comments WHITE BLOOD CELL COUNT (BEAKER) 21.0 K/ L 3.5-10.5 H (test code = 775) RED BLOOD CELL COUNT (BEAKER) 3.46 M/ L 3.93-5.22 L (test code = 761) HEMOGLOBIN (BEAKER) (test code = 10.1 GM/DL 11.2-15.7 L 410) HEMATOCRIT (BEAKER) (test code = 30.8 % 34.1-44.9 L 411) MEAN CORPUSCULAR VOLUME (BEAKER) 89.0 fL 79.4-94.8 (test code = 753) MEAN CORPUSCULAR HEMOGLOBIN 29.2 pg 25.6-32.2 (BEAKER) (test code = 751) MEAN CORPUSCULAR HEMOGLOBIN CONC 32.8 GM/DL 32.2-35.5 (BEAKER) (test code = 752) RED CELL DISTRIBUTION WIDTH 18.8 % 11.7-14.4 H (BEAKER) (test code = 412) PLATELET COUNT (BEAKER) (test 498 K/CU MM 150-450 H code = 756) MEAN PLATELET VOLUME (BEAKER) 9.4 fL 9.4-12.3 (test code = 754) NUCLEATED RED BLOOD CELLS 0 /100 WBC 0-0 (BEAKER) (test code = 413) HEMOGLOBIN AND [id number] 16:06:00 Test Item Value Reference Range Interpretation Comments HEMOGLOBIN (BEAKER) (test code = 8.8 GM/DL 11.2-15.7 L 410) HEMATOCRIT (BEAKER) (test code = 26.7 % 34.1-44.9 L 411) Printing Sales Representative ID - [id number], CHEST, 1 VIEW, NON [id number] 09:02:00Reason for exam:->post-opShould this be performed at the bedside?->Yes [facility] : 1945 Sex: FFINAL REPORT Chest, one view. HISTORY: post-op COMPARISON: Radiograph from yesterday IMPRESSION: Unchanged positioning of the right chest port. The bibasilar atelectasisessentially unchanged. The small left pleural effusion is slightly increased in size. No pneumothorax. The cardiac silhouette is unchanged in size. No acute bone abnormality. Signed: Chirag Flowersort Verified Date/Time: 08/08/2020 09:02:47 Reading Location: [facility] B1 C013X Ortho Consult Reading Room BASIC METABOLIC [id number] 09:00:00 Test Item Value Reference Range Interpretation Comments SODIUM (BEAKER) 128 meq/L 136-145 L (test code = 381) POTASSIUM (BEAKER) 4.6 meq/L 3.5-5.1 (test code = 379) CHLORIDE (BEAKER) 100 meq/L 98-107 (test code = 382) CO2 (BEAKER) (test 24 meq/L 22-29 code = 355) BLOOD UREA NITROGEN 13 mg/dL 7-21 (BEAKER) (test code = 354) CREATININE (BEAKER) 0.44 mg/dL 0.57-1.25 L (test code = 358) GLUCOSE RANDOM 84 mg/dL 70-105 (BEAKER) (test code = 652) CALCIUM (BEAKER) 7.2 mg/dL 8.4-10.2 L (test code = 697) EGFR (BEAKER) (test 169 mL/min/1.73 ESTIM ATED GFR IS code = 1092) sq m NOT ACCURATE CREATININE CLEARANCE IN PREDICTING GLOMERULAR FILTRATION RATE . ESTIMATED GFR I S NOT APPLICABLE FOR DIALYSIS PATIEN TS. Printing Sales Representative ID - BRYAN LSpecimen moderately ictericHEPATIC FUNCTION [id number] 08:58:00 Test Item Value Reference Range Interpretation Comments TOTAL PROTEIN (BEAKER) (test code = 4.6 gm/dL 6.0-8.3 L 770) ALBUMIN (BEAKER) (test code = 1145) 1.6 g/dL 3.5-5.0 L BILIRUBIN TOTAL (BEAKER) (test code 6.5 mg/dL 0.2-1.2 H = 377) BILIRUBIN DIRECT (BEAKER) (test 5.0 mg/dL 0.1-0.5 H code = 706) ALKALINE PHOSPHATASE (BEAKER) (test 559 U/L 40-150 H code = 346) AST (SGOT) (BEAKER) (test code = 39 U/L 5-34 H 353) ALT (SGPT) (BEAKER) (test code = 25 U/L 6-55 347) Printing Sales Representative ID - BRYAN LSpecimen moderately [id number] 08:56:00 Test Item Value Reference Range Interpretation Comments MAGNESIUM (BEAKER) (test code = 1.9 mg/dL 1.6-2.6 627) Printing Sales Representative ID - BRYAN [id number] 08:56:00 Test Item Value Reference Range Interpretation Comments PHOSPHORUS (BEAKER) (test code = 2.8 mg/dL 2.3-4.7 604) Printing Sales Representative ID - BRYAN [id number] 08:45:00 Test Item Value Reference Range Interpretation Comments PARTIAL THROMBOPLASTIN TIME 38.9 seconds 22.5-36.0 H (BEAKER) (test code = 760) PROTHROMBIN TIME/[id number] 08:44:00 Test Item Value Reference Range Interpretation Comments PROTIME (BEAKER) 18.1 seconds 11.9-14.2 H (test code = 759) INR (BEAKER) (test 1.52 See_Comment [Automat ed message] code = 370) The system Solar[employer] generated this result transmitted ref erence range: <=5.90. The reference range was not used to int erpret this result as normal/abnormal . RECOMMENDED COUMADIN/WARFARIN INR THERAPY RANGESSTANDARD DOSE: 2.0 - 3.0 Includes: PROPHYLAXIS forvenous thrombosis, systemic embolization; TREATMENT for venous thrombosis and/or pulmonary embolus.HIGH RISK: Target INR is 2.5-3.5 for patients with mechanical heart valves.CBC (HEMOGRAM ONLY)2020-08-08 08:40:00 Test Item Value Reference Range Interpretation Comments WHITE BLOOD CELL COUNT (BEAKER) 18.5 K/ L 3.5-10.5 H (test code = 775) RED BLOOD CELL COUNT (BEAKER) 3.06 M/ L 3.93-5.22 L (test code = 761) HEMOGLOBIN (BEAKER) (test code = 9.0 GM/DL 11.2-15.7 L 410) HEMATOCRIT (BEAKER) (test code = 26.8 % 34.1-44.9 L 411) MEAN CORPUSCULAR VOLUME (BEAKER) 87.6 fL 79.4-94.8 (test code = 753) MEAN CORPUSCULAR HEMOGLOBIN 29.4 pg 25.6-32.2 (BEAKER) (test code = 751) MEAN CORPUSCULAR HEMOGLOBIN CONC 33.6 GM/DL 32.2-35.5 (BEAKER) (test code = 752) RED CELL DISTRIBUTION WIDTH 19.2 % 11.7-14.4 H (BEAKER) (test code = 412) PLATELET COUNT (BEAKER) (test 513 K/CU MM 150-450 H code = 756) MEAN PLATELET VOLUME (BEAKER) 9.1 fL 9.4-12.3 L (test code = 754) NUCLEATED RED BLOOD CELLS 0 /100 WBC 0-0 (BEAKER) (test code = 413) CBC with platelet count + automated [id number] 15:09:00 Test Item Value Reference Range Interpretation Comments WBC (test code = 6690-2) 21.5 See_Comment H [A utomated message] The system [employer] generated this result transmitted ref erence range: 3.5 - 10 .5 K/L. The refe rence range was not u sed to interpret this result as normal/abnor mal. RBC (test code = 789-8) 3.57 See_Comment L [Au tomated message] The system [employer] generated this result transmitted ref erence range: 3.93 - 5 .22 M/L. The refe rence range was not u sed to interpret this result as normal/abnor mal. MCHC (test code = 786-4) 33.3 See_Comment L [A utomated message] The system [employer] generated this result transmitted ref erence range: 32.2 - 3 5.5 GM/DL. The refe rence range was not u sed to interpret this result as normal/abnor mal. Hematocrit (test code = 32.7 % 34.1-44.9 L 4544-3) MCV (test code = 787-2) 91.6 fL 79.4-94.8 MCH (test code = 785-6) 30.5 pg 25.6-32.2 RDW (test code = 788-0) 19.1 % 11.7-14.4 H Platelets (test code = 457 See_Comment H [Aut omated message] 777-3) The system [employer] generated this result transmitted ref erence range: 150 - 45 0 K/CU MM. The referen ce range was not u sed to interpret this result as normal/abnor mal. MPV (test code = 8.7 fL 9.4-12.3 L 53914-9) nRBC (test code = 413) 0 See_Comment [Aut omated message] The system [employer] generated this result transmitted ref erence range: 0 - 0 /1 00 WBC. The refere nce range was not u sed to interpret this result as normal/abnor mal. % Neutros (test code = 86 % 429) % Lymphs (test code = 7 % 430) % Monos (test code = 5 % 431) % Eos (test code = 432) 0 % % Baso (test code = 437) 0 % # Neutros (test code = 18.49 See_Comment H [Aut omated message] 670) The system [employer] generated this result transmitted ref erence range: 1.56 - 6 .13 K/L. The refe rence range was not u sed to interpret this result as normal/abnor mal. # Lymphs (test code = 1.42 See_Comment [Auto mated message] 414) The system [employer] generated this result transmitted ref erence range: 1.18 - 3 .74 K/L. The refe rence range was not u sed to interpret this result as normal/abnor mal. # Monos (test code = 1.17 See_Comment H [Autom ated message] 415) The system [employer] generated this result transmitted ref erence range: 0.24 - 0 .36 K/L. The refe rence range was not u sed to interpret this result as normal/abnor mal. # Eos (test code = 416) 0.07 See_Comment [Au tomated message] The system [employer] generated this result transmitted ref erence range: 0.04 - 0 .36 K/L. The refe rence range was not u sed to interpret this result as normal/abnor mal. # Baso (test code = 417) 0.06 See_Comment [A utomated message] The system [employer] generated this result transmitted ref erence range: 0.01 - 0 .08 K/L. The refe rence range was not u sed to interpret this result as normal/abnor mal. Immature 1 % 0-1 Granulocytes-Relative (test code = 2801) Lab Interpretation (test Abnormal code = 78010-0) [facility] W/PLT COUNT & AUTO [id number] 15:09:00 Test Item Value Reference Range Interpretation Comments WHITE BLOOD CELL COUNT (BEAKER) 21.5 K/ L 3.5-10.5 H (test code = 775) RED BLOOD CELL COUNT (BEAKER) 3.57 M/ L 3.93-5.22 L (test code = 761) HEMOGLOBIN (BEAKER) (test code = 10.9 GM/DL 11.2-15.7 L 410) HEMATOCRIT (BEAKER) (test code = 32.7 % 34.1-44.9 L 411) MEAN CORPUSCULAR VOLUME (BEAKER) 91.6 fL 79.4-94.8 (test code = 753) MEAN CORPUSCULAR HEMOGLOBIN 30.5 pg 25.6-32.2 (BEAKER) (test code = 751) MEAN CORPUSCULAR HEMOGLOBIN CONC 33.3 GM/DL 32.2-35.5 (BEAKER) (test code = 752) RED CELL DISTRIBUTION WIDTH 19.1 % 11.7-14.4 H (BEAKER) (test code = 412) PLATELET COUNT (BEAKER) (test 457 K/CU MM 150-450 H code = 756) MEAN PLATELET VOLUME (BEAKER) 8.7 fL 9.4-12.3 L (test code = 754) NUCLEATED RED BLOOD CELLS 0 /100 WBC 0-0 (BEAKER) (test code = 413) NEUTROPHILS RELATIVE PERCENT 86 % (BEAKER) (test code = 429) LYMPHOCYTES RELATIVE PERCENT 7 % (BEAKER) (test code = 430) MONOCYTES RELATIVE PERCENT 5 % (BEAKER) (test code = 431) EOSINOPHILS RELATIVE PERCENT 0 % (BEAKER) (test code = 432) BASOPHILS RELATIVE PERCENT 0 % (BEAKER) (test code = 437) NEUTROPHILS ABSOLUTE COUNT 18.49 K/ L 1.56-6.13 H (BEAKER) (test code = 670) LYMPHOCYTES ABSOLUTE COUNT 1.42 K/ L 1.18-3.74 (BEAKER) (test code = 414) MONOCYTES ABSOLUTE COUNT (BEAKER) 1.17 K/ L 0.24-0.36 H (test code = 415) EOSINOPHILS ABSOLUTE COUNT 0.07 K/ L 0.04-0.36 (BEAKER) (test code = 416) BASOPHILS ABSOLUTE COUNT (BEAKER) 0.06 K/ L 0.01-0.08 (test code = 417) IMMATURE GRANULOCYTES-RELATIVE 1 % 0-1 PERCENT (BEAKER) (test code = 2801) RAD, CHEST, 1 VIEW, NON [id number] 09:30:00Reason for exam:->post-opShould this be performed at the bedside?->Yes [facility] 1945 Sex: FFINAL REPORT AP chest dated 08/07/2020 COMPARISON: August Comment: Heart is normal in size. Pulmonary vasculature is unremarkable. Interstitial pulmonary disease is seen in both lower lobes suggestive of subsegmental atelectasis or pneumonia. There is trace of bilateral pleural effusion. Port-A-Cath remains in place. IMPRESSION: No interval change. Signed: [facility] Verified Date/Time: 08/07/2020 09:30:31 Reading Location: [facility] C013Y CT Body Reading Room BASIC METABOLIC [id number] 06:39:00 Test Item Value Reference Range Interpretation Comments SODIUM (BEAKER) 129 meq/L 136-145 L (test code = 381) POTASSIUM (BEAKER) 4.7 meq/L 3.5-5.1 (test code = 379) CHLORIDE (BEAKER) 100 meq/L 98-107 (test code = 382) CO2 (BEAKER) (test 25 meq/L 22-29 code = 355) BLOOD UREA NITROGEN 14 mg/dL 7-21 (BEAKER) (test code = 354) CREATININE (BEAKER) 0.45 mg/dL 0.57-1.25 L (test code = 358) GLUCOSE RANDOM 79 mg/dL 70-105 (BEAKER) (test code = 652) CALCIUM (BEAKER) 7.3 mg/dL 8.4-10.2 L (test code = 697) EGFR (BEAKER) (test 165 mL/min/1.73 ESTIM ATED GFR IS code = 1092) sq m NOT ACCURATE CREATININE CLEARANCE IN PREDICTING GLOMERULAR FILTRATION RATE . ESTIMATED GFR I S NOT APPLICABLE FOR DIALYSIS PATIEN TS. Printing Sales Representative ID - DBSpecimen slightly ictericHEPATIC FUNCTION [id number] 06:39:00 Test Item Value Reference Range Interpretation Comments TOTAL PROTEIN (BEAKER) (test code = 4.5 gm/dL 6.0-8.3 L 770) ALBUMIN (BEAKER) (test code = 1145) 1.6 g/dL 3.5-5.0 L BILIRUBIN TOTAL (BEAKER) (test code 5.8 mg/dL 0.2-1.2 H = 377) BILIRUBIN DIRECT (BEAKER) (test 4.6 mg/dL 0.1-0.5 H code = 706) ALKALINE PHOSPHATASE (BEAKER) (test 560 U/L 40-150 H code = 346) AST (SGOT) (BEAKER) (test code = 56 U/L 5-34 H 353) ALT (SGPT) (BEAKER) (test code = 31 U/L 6-55 347) Printing Sales Representative ID - DBSpecimen slightly [id number] 06:38:00 Test Item Value Reference Range Interpretation Comments MAGNESIUM (BEAKER) (test code = 1.9 mg/dL 1.6-2.6 627) Printing Sales Representative ID - [id number] 06:38:00 Test Item Value Reference Range Interpretation Comments PHOSPHORUS (BEAKER) (test code = 3.1 mg/dL 2.3-4.7 604) Printing Sales Representative ID - [id number] 06:01:00 Test Item Value Reference Range Interpretation Comments PARTIAL THROMBOPLASTIN TIME 40.0 seconds 22.5-36.0 H (BEAKER) (test code = 760) CBC (HEMOGRAM ONLY)2020-08-07 06:00:00 Test Item Value Reference Range Interpretation Comments WHITE BLOOD CELL COUNT (BEAKER) 20.1 K/ L 3.5-10.5 H (test code = 775) RED BLOOD CELL COUNT (BEAKER) 3.05 M/ L 3.93-5.22 L (test code = 761) HEMOGLOBIN (BEAKER) (test code = 8.9 GM/DL 11.2-15.7 L 410) HEMATOCRIT (BEAKER) (test code = 27.3 % 34.1-44.9 L 411) MEAN CORPUSCULAR VOLUME (BEAKER) 89.5 fL 79.4-94.8 (test code = 753) MEAN CORPUSCULAR HEMOGLOBIN 29.2 pg 25.6-32.2 (BEAKER) (test code = 751) MEAN CORPUSCULAR HEMOGLOBIN CONC 32.6 GM/DL 32.2-35.5 (BEAKER) (test code = 752) RED CELL DISTRIBUTION WIDTH 18.9 % 11.7-14.4 H (BEAKER) (test code = 412) PLATELET COUNT (BEAKER) (test 578 K/CU MM 150-450 H code = 756) MEAN PLATELET VOLUME (BEAKER) 9.6 fL 9.4-12.3 (test code = 754) NUCLEATED RED BLOOD CELLS 0 /100 WBC 0-0 (BEAKER) (test code = 413) PROTHROMBIN TIME/[id number] 06:00:00 Test Item Value Reference Range Interpretation Comments PROTIME (BEAKER) 18.7 seconds 11.9-14.2 H (test code = 759) INR (BEAKER) (test 1.59 See_Comment [Automat ed message] code = 370) The system [employer] generated this result transmitted ref erence range: <=5.90. The reference range was not used to int erpret this result as normal/abnormal . RECOMMENDED COUMADIN/WARFARIN INR THERAPY RANGESSTANDARD DOSE: 2.0 - 3.0 Includes: PROPHYLAXIS forvenous thrombosis, systemic embolization; TREATMENT for venous thrombosis and/or pulmonary embolus.HIGH RISK: Target INR is 2.5-3.5 for patients with mechanical heart valves.HEMOGLOBIN AND [id number] 18:25:00 Test Item Value Reference Range Interpretation Comments HEMOGLOBIN (BEAKER) (test code = 9.7 GM/DL 11.2-15.7 L 410) HEMATOCRIT (BEAKER) (test code = 28.9 % 34.1-44.9 L 411) Printing Sales Representative ID - [id number]-CoV2/RT-PCR (Asymptomatic ONLY)2020-08-06 16:53:00 Test Item Value Reference Range Interpretation Comments SARS-COV2/RT-PCR Negative Not Detected, (test code = Negative, See 68662-2) external report for linked test SARS-COV-2 [facility] PERFORMING LAB (test code = 95484-0) ANABELA (test code = Negative result for this ANABELA) test determines that SARS-CoV-2 RNA was not present in the specimen above the Limit of Detection (LOD). However, Negative results do not preclude SARS-CoV-2 infection and should not be used as the sole basis for treatment or patient management decisions. Negative results must be combined with clinical observations, patient history, and epidemiological information. A false negative result may occur if a specimen is improperly collected, transported or handled. A false negative result should be considered if patient's recent exposures or clinical presentation indicate that COVID-19 (SARS-CoV-2) is likely and diagnostic tests for other causes of illness are negative. Re-testing should be considered in cases of suspected false negatives. The limit of detection for this assay is 800 copies/mL. This SARS CoV-2 test is a real-time RT-PCR test intended for the qualitative detection of nucleic acid from SARS-CoV-2 in a nasopharyngeal swab specimen collected from individuals suspected of COVID-19 by their healthcare provider. This test has not been Food and Drug Administration (FDA) cleared or approved. This is a modified version of an approved Emergency Use Authorization (EUA) and is in the process of review by the FDA. Once authorized by the FDA, the issued EUA will be effective until the declaration that circumstances exist justifying the authorization of the emergency use of in vitro diagnostic tests for detection and/or diagnosis of COVID-19 is terminated under Section 564(b)(2) of the Act or the EUA is revoked under Section 564(g) of the Act. Fact Sheet for Healthcare Providers:https://www.qu idel.[employer]/sites/default/f mj/product/documents/F act_Sheet_HC_Providers_L ifs_TCMQ-XoD-1.pdf Fact Sheet for Healthcare Patients:https://www.[employer]/sites/default/fi les/product/documents/Fa ct_Sheet_Patients_Ly_S ARS-CoV-2.pdf Performing Laboratory:[facility], [place] [address] [place], [place] [address]ARS-COV2/RT-PCR ([facility])2020-08-06 16:53:00 Test Item Value Reference Range Interpretation Comments SARS-COV2/RT-PCR (test Negative Not Detected, Negative, code = 5170756) See external report for linked test SARS-COV-2 PERFORMING LAB [facility] DEZ (test code = 7622478) Negative result for this test determines that SARS-CoV-2 RNA was not present in the specimen above the Limit of Detection (LOD). However, Negative results do not preclude SARS-CoV-2 infection and should not be used as the sole basis for treatment or patient management decisions. Negative results mustbe combined with clinical observations, patient history, and epidemiological information. A false negative result may occur if a specimen is improperly collected, transported or handled. A false negative result should be considered if patient's recent exposures or clinical presentation indicate that COVID-19 (SARS-CoV-2) is likely and diagnostic tests for other causes of illness are negative. Re-testing should be considered in cases of suspected false negatives.The limit of detection for this assay is 800 copies/mL.This SARS CoV-2 test is a real-time RT-PCR test intended for the qualitative detection of nucleic acid from SARS-CoV-2 in a nasopharyngeal swab specimen collected from individuals susp ected of COVID-19 by their healthcare provider.This test has not been Food and Drug Administration (FDA) cleared or approved. This is a modified version of an approved Emergency Use Authorization (EUA) and is in the process of review by the FDA. Once authorized by the FDA, the issued EUA will be effective until the declaration that circumstances exist justifying the authorization of the emergency use of in vitro diagnostic tests for detection and/or diagnosis of COVID-19 is terminated under Section 564(b)(2) of the Act or the EUA is revoked under Section 564(g) of the Act.Fact Sheet for Healthcare Providers:https://www.[employer]/sites/default/files/product/documents/Fact_Shee j_LN_Ofjzvjfiq_Xecb_EOYU-AfE-7.pdfFact Sheet for Healthcare Patients:https://www.[employer]/sites/default/files/product/ documents/Xwgv_Znvdm_Ilzoblik_Hsau_HVRV-NsL-7.pdfPerforming Laboratory:[facility], [place] [address]Acew and screen, [id number] 11:21:00 Test Item Value Reference Range Interpretation Comments ABO/RH AUTOMATED (BEAKER) (test O NEGATIVE code = 2260) Ab Scrn (test code = 890-4) NEGATIVE [facility] AND [id number] 10:06:00 Test Item Value Reference Range Interpretation Comments HEMOGLOBIN (BEAKER) (test code = 9.1 GM/DL 11.2-15.7 L 410) HEMATOCRIT (BEAKER) (test code = 27.2 % 34.1-44.9 L 411) Printing Sales Representative ID - [id number]-GLUCOSE [id number] 08:34:00 Test Item Value Reference Range Interpretation Comments POC-GLUCOSE METER 77 mg/dL 70-110 : TESTED A T [facility] 6720 (BEAKER) (test code = KATARINAMARISSA Omer [facility], 1538) [address]: Printing Sales Representative/Techni nael ID = [id number] for William Presley RAD, CHEST, 1 VIEW, NON [id number] 08:06:00Reason for exam:->post-opShould this be performed at the bedside?->Yes [facility] : 1945 Sex: FFINAL REPORT RAD, CHEST, 1 VIEW, NON DEPT INDICATION: post-op COMPARISON: Prior day's exam FINDINGS: Portable frontal view of the chest. IMPRESSION: Support Lines: Stable. Lungs and pleura: No consolidation. Trace left effusion. No pneumothorax.Heart and mediastinum: Stable contours. Stable surgical changes.Additional findings: None. Signed: JR Conrad Robert MD Report Verified Date/Time: 08/06/2020 08:06:19 Reading Location: [facility] Radiology Reading Room BASIC METABOLIC [id number] 06:40:00 Test Item Value Reference Range Interpretation Comments SODIUM (BEAKER) 129 meq/L 136-145 L (test code = 381) POTASSIUM (BEAKER) 4.8 meq/L 3.5-5.1 (test code = 379) CHLORIDE (BEAKER) 102 meq/L 98-107 (test code = 382) CO2 (BEAKER) (test 25 meq/L 22-29 code = 355) BLOOD UREA NITROGEN 14 mg/dL 7-21 (BEAKER) (test code = 354) CREATININE (BEAKER) 0.43 mg/dL 0.57-1.25 L (test code = 358) GLUCOSE RANDOM 73 mg/dL 70-105 (BEAKER) (test code = 652) CALCIUM (BEAKER) 7.4 mg/dL 8.4-10.2 L (test code = 697) EGFR (BEAKER) (test 173 mL/min/1.73 ESTIM ATED GFR IS code = 1092) sq m NOT ACCURATE CREATININE CLEARANCE IN PREDICTING GLOMERULAR FILTRATION RATE . ESTIMATED GFR I S NOT APPLICABLE FOR DIALYSIS PATIEN TS. Printing Sales Representative ID - EDASISpecimen moderately ictericHEPATIC FUNCTION [id number] 06:38:00 Test Item Value Reference Range Interpretation Comments TOTAL PROTEIN (BEAKER) (test code = 4.5 gm/dL 6.0-8.3 L 770) ALBUMIN (BEAKER) (test code = 1145) 1.6 g/dL 3.5-5.0 L BILIRUBIN TOTAL (BEAKER) (test code 5.9 mg/dL 0.2-1.2 H = 377) BILIRUBIN DIRECT (BEAKER) (test 4.7 mg/dL 0.1-0.5 H code = 706) ALKALINE PHOSPHATASE (BEAKER) (test 592 U/L 40-150 H code = 346) AST (SGOT) (BEAKER) (test code = 46 U/L 5-34 H 353) ALT (SGPT) (BEAKER) (test code = 31 U/L 6-55 347) Printing Sales Representative ID - EDASISpecimen moderately [id number] 06:34:00 Test Item Value Reference Range Interpretation Comments MAGNESIUM (BEAKER) (test code = 1.9 mg/dL 1.6-2.6 627) Printing Sales Representative ID - [id number] 06:34:00 Test Item Value Reference Range Interpretation Comments PHOSPHORUS (BEAKER) (test code = 3.2 mg/dL 2.3-4.7 604) Printing Sales Representative ID - [id number] 05:59:00 Test Item Value Reference Range Interpretation Comments PARTIAL THROMBOPLASTIN TIME 35.4 seconds 22.5-36.0 (BEAKER) (test code = 760) PROTHROMBIN TIME/[id number] 05:58:00 Test Item Value Reference Range Interpretation Comments PROTIME (BEAKER) 22.8 seconds 11.9-14.2 H (test code = 759) INR (BEAKER) (test 2.04 See_Comment [Automat ed message] code = 370) The system [employer] generated this result transmitted ref erence range: <=5.90. The reference range was not used to int erpret this result as normal/abnormal . RECOMMENDED COUMADIN/WARFARIN INR THERAPY RANGESSTANDARD DOSE: 2.0 - 3.0 Includes: PROPHYLAXIS forvenous thrombosis, systemic embolization; TREATMENT for venous thrombosis and/or pulmonary embolus.HIGH RISK: Target INR is 2.5-3.5 for patients with mechanical heart valves.CBC (HEMOGRAM ONLY)2020-08-06 05:55:00 Test Item Value Reference Range Interpretation Comments WHITE BLOOD CELL COUNT (BEAKER) 18.2 K/ L 3.5-10.5 H (test code = 775) RED BLOOD CELL COUNT (BEAKER) 2.82 M/ L 3.93-5.22 L (test code = 761) HEMOGLOBIN (BEAKER) (test code = 8.2 GM/DL 11.2-15.7 L 410) HEMATOCRIT (BEAKER) (test code = 25.5 % 34.1-44.9 L 411) MEAN CORPUSCULAR VOLUME (BEAKER) 90.4 fL 79.4-94.8 (test code = 753) MEAN CORPUSCULAR HEMOGLOBIN 29.1 pg 25.6-32.2 (BEAKER) (test code = 751) MEAN CORPUSCULAR HEMOGLOBIN CONC 32.2 GM/DL 32.2-35.5 (BEAKER) (test code = 752) RED CELL DISTRIBUTION WIDTH 19.7 % 11.7-14.4 H (BEAKER) (test code = 412) PLATELET COUNT (BEAKER) (test 565 K/CU MM 150-450 H code = 756) MEAN PLATELET VOLUME (BEAKER) 9.7 fL 9.4-12.3 (test code = 754) NUCLEATED RED BLOOD CELLS 0 /100 WBC 0-0 (BEAKER) (test code = 413) POCT-GLUCOSE [id number] 21:29:00 Test Item Value Reference Range Interpretation Comments POC-GLUCOSE METER 92 mg/dL 70-110 : TESTED A T [facility] 6720 (BEAKER) (test code = [facility], 153) 15124: Printing Sales Representative/Techni nael ID = [id number] for TEE JACOB POCT-GLUCOSE [id number] 17:09:00 Test Item Value Reference Range Interpretation Comments POC-GLUCOSE METER 81 mg/dL 70-110 : TESTED A T [facility] 6720 (BEAKER) (test code = [facility], 1538) [id number]: Printing Sales Representative/Techni nael ID = [id number] for ROME BACH POCT-GLUCOSE [id number] 11:55:00 Test Item Value Reference Range Interpretation Comments POC-GLUCOSE METER 94 mg/dL 70-110 : TESTED A T [facility] 6720 (BEAKER) (test code = [facility], 1538) 24983: Printing Sales Representative/Techni nael ID = [id number] for ROME BACH RAD, CHEST, 1 VIEW, NON [id number] 08:09:00Reason for exam:->post-opShould this be performed at the bedside?->Yes [facility]ORT[facility] : 1945 Sex: FFINAL REPORT RAD, CHEST, 1 VIEW, NON DEPT INDICATION: post-op COMPARISON: Prior day's exam FINDINGS: Portable frontal view of the chest. IMPRESSION: Support Lines: Stable. Lungs and pleura: No new consolidation. No pneumothorax.Heart and mediastinum: Stable contours. Stable surgical changes.Additional findings: None. Signed: JR Conrad Robert MDReport Verified Date/Time: 08/05/2020 08:09:04 Reading Location: [facility] Radiology Reading Room POCT-GLUCOSE [id number] 07:32:00 Test Item Value Reference Range Interpretation Comments POC-GLUCOSE METER 111 mg/dL 70-110 H : TESTED A T [facility] 6720 (BEAKER) (test code = [facility] [place], 1538) [id number]: Printing Sales Representative/Techni nael ID = [id number] for ROME [place] HEPATIC FUNCTION [id number] 06:52:00 Test Item Value Reference Range Interpretation Comments TOTAL PROTEIN (BEAKER) (test code = 5.0 gm/dL 6.0-8.3 L 770) ALBUMIN (BEAKER) (test code = 1145) 1.8 g/dL 3.5-5.0 L BILIRUBIN TOTAL (BEAKER) (test code 6.5 mg/dL 0.2-1.2 H = 377) BILIRUBIN DIRECT (BEAKER) (test 5.1 mg/dL 0.1-0.5 H code = 706) ALKALINE PHOSPHATASE (BEAKER) (test 701 U/L 40-150 H code = 346) AST (SGOT) (BEAKER) (test code = 53 U/L 5-34 H 353) ALT (SGPT) (BEAKER) (test code = 40 U/L 6-55 347) Printing Sales Representative ID - PIAVNI LSpecimen moderately ictericBASIC METABOLIC [id number] 06:52:00 Test Item Value Reference Range Interpretation Comments SODIUM (BEAKER) 132 meq/L 136-145 L (test code = 381) POTASSIUM (BEAKER) 4.7 meq/L 3.5-5.1 (test code = 379) CHLORIDE (BEAKER) 100 meq/L 98-107 (test code = 382) CO2 (BEAKER) (test 27 meq/L 22-29 code = 355) BLOOD UREA NITROGEN 15 mg/dL 7-21 (BEAKER) (test code = 354) CREATININE (BEAKER) 0.49 mg/dL 0.57-1.25 L (test code = 358) GLUCOSE RANDOM 108 mg/dL 70-105 H (BEAKER) (test code = 652) CALCIUM (BEAKER) 7.8 mg/dL 8.4-10.2 L (test code = 697) EGFR (BEAKER) (test 149 mL/min/1.73 ESTIM ATED GFR IS code = 1092) sq m NOT ACCURATE CREATININE CLEARANCE IN PREDICTING GLOMERULAR FILTRATION RATE . ESTIMATED GFR I S NOT APPLICABLE FOR DIALYSIS PATIEN TS. Printing Sales Representative ID - PIAYA LSpecimen moderately [id number] 06:38:00 Test Item Value Reference Range Interpretation Comments MAGNESIUM (BEAKER) (test code = 1.9 mg/dL 1.6-2.6 627) Printing Sales Representative ID - PIAYA [id number] 06:38:00 Test Item Value Reference Range Interpretation Comments PHOSPHORUS (BEAKER) (test code = 3.0 mg/dL 2.3-4.7 604) Printing Sales Representative ID - PIAYA LCBC (HEMOGRAM ONLY)2020-08-05 06:02:00 Test Item Value Reference Range Interpretation Comments WHITE BLOOD CELL COUNT (BEAKER) 20.6 K/ L 3.5-10.5 H (test code = 775) RED BLOOD CELL COUNT (BEAKER) 3.34 M/ L 3.93-5.22 L (test code = 761) HEMOGLOBIN (BEAKER) (test code = 9.5 GM/DL 11.2-15.7 L 410) HEMATOCRIT (BEAKER) (test code = 29.8 % 34.1-44.9 L 411) MEAN CORPUSCULAR VOLUME (BEAKER) 89.2 fL 79.4-94.8 (test code = 753) MEAN CORPUSCULAR HEMOGLOBIN 28.4 pg 25.6-32.2 (BEAKER) (test code = 751) MEAN CORPUSCULAR HEMOGLOBIN CONC 31.9 GM/DL 32.2-35.5 L (BEAKER) (test code = 752) RED CELL DISTRIBUTION WIDTH 19.6 % 11.7-14.4 H (BEAKER) (test code = 412) PLATELET COUNT (BEAKER) (test 647 K/CU MM 150-450 H code = 756) MEAN PLATELET VOLUME (BEAKER) 9.5 fL 9.4-12.3 (test code = 754) NUCLEATED RED BLOOD CELLS 0 /100 WBC 0-0 (BEAKER) (test code = 413) [id number] 05:42:00 Test Item Value Reference Range Interpretation Comments PARTIAL THROMBOPLASTIN TIME 42.2 seconds 22.5-36.0 H (BEAKER) (test code = 760) PROTHROMBIN TIME/[id number] 05:41:00 Test Item Value Reference Range Interpretation Comments PROTIME (BEAKER) 19.8 seconds 11.9-14.2 H (test code = 759) INR (BEAKER) (test 1.70 See_Comment [Automat ed message] code = 370) The system SolarPrint generated this result transmitted ref erence range: <=5.90. The reference range was not used to int erpret this result as normal/abnormal . RECOMMENDED COUMADIN/WARFARIN INR THERAPY RANGESSTANDARD DOSE: 2.0 - 3.0 Includes: PROPHYLAXIS forvenous thrombosis, systemic embolization; TREATMENT for venous thrombosis and/or pulmonary embolus.HIGH RISK: Target INR is 2.5-3.5 for patients with mechanical heart valves.POCT-GLUCOSE [id number] 21:20:00 Test Item Value Reference Range Interpretation Comments POC-GLUCOSE METER 113 mg/dL 70-110 H : TESTED A T [facility] 6720 ([email or web address]) (test code = [facility], 1538) [id number]: Printing Sales Representative/Techni nael ID = [id number] for PE RALES, TEE POCT-GLUCOSE [id number] 17:15:00 Test Item Value Reference Range Interpretation Comments POC-GLUCOSE METER 105 mg/dL 70-110 : TESTED A T [facility] 6720 ([email or web address]) (test code = [facility], 1538) 26517: Printing Sales Representative/Techni nael ID = [id number] for An suraj (pca2)Rosy 2D Echo W/Doppler(CW/PW/Color)2020-08-04 14:06:34Ejection FractionSLEH ECHO HEARTLAB MKCKESSON CPACSInterface, External Ris In - 08/04/2020 2:06 PM C DTTransthoracic Echocardiography Report (TTE) Demographics Patient Name PALMER, Date of Study 08/04/2020 MELINDA Gender Female Visit Number [id number] Race Black Room Number 1051 Number Date of 1945 Referring Physician BEV Marcus Age 74 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 All segments contract normally. LVEF is normal (55-60%) . 2. Normal RV size and function. 3. Grade 1 diastolic dysfunction (impaired relaxation and low-normal LA pressure).4. Estimated peak systolic PA pressure is 23 mmHg + RA pressure. (RA pressure indeterminate on this exam) 5. A small pericardial effusion is present . Previous Study In comparison with the prior exam 07/28/2020 the following changes are noted: left ventricular systolic function has improved . Signature Findings Technical Quality: Technically adequate exam. Left Ventricle The left ventricle is chamber size (by vol index) is normal (female - LVED vol - 29-61ml/m2). No evidence of LV hypertrophy. All of the LV segments contract normally . Global LV systolic function normal . LVEF by Grey's method of disk assessment is normal (55-60%) . Grade 1 diastolic dysfunction (impaired relaxation and low-normal LA pressure). Left Atrium LA size is normal (16-34 ml/m2) . Right Ventricle The right ventricular chamber size and systolic function are within normal limits. R ight Atrium RA cavity size is mildly enlarged . Aortic Valve Mild AoV cusp thickening. Mild aortic regurgitation. Mitral Valve Mild MV leaflet thickening. Mild mitral regurgitation. Tricuspid Valve TV structure is normal. Mild tricuspid regurgitation. Estimated peak systolic PA pressure is 23 mmHg + RA pressure. (RA pressure indeterminate on this exam) Pulmonic Valve Normal PV structure and function. Aorta Prosthetic aortic graft is present in the following locations: ascending aorta, aortic arch. Aortic root size (SInus of Valsalva diameter) is normal . Aortic dissection is present in the following location(s): abdominal aorta . Pericardium A small pericardial effusion is present . IVC/SVC/PA/PV/Pleural A left pleural effusion is noted. The inferior vena cava is not well visualized. Chambers/Structures Left Atrium LA Volume: 51.99 ml LA Area:17.84 cm^2 LA Vol. Index: 27 ml/m^2 Left Ventricle LVIDd: 4.55 cm LVIDs: 2.38 cm LV Septum Diastolic: 1.09 cm LV PW Diastolic: 1.15 cm LV FS: 47.7 % LVEDV Grey's:72.84 ml LVESV Grey's:30.25 ml LVEDVI: 38 ml/m^2 LVEF Grey's: 58.5 % LVESVI: 16 ml/m^2 LVOT Diameter: 2.03 cm Right Atrium RA Area: 23.9 cm^2 Right Ventricle RVOT VTI: 12.58 cm Aorta Ao Root S of Ioana.: 3.77 cm Doppler/Quantitative Measurements Mitral Valve MV Peak E-Wave: 0.52 m/s MV Peak A-Wave: 0.66 m/s E/A Ratio: 0.79 Peak Gradient: 1.08 mmHg Deceleration Time: 210.9 msec MV Andrea. Peak: Tissue Doppler E' Lateral Velocity: 0.08 m/s E/E': 6.67 Aortic Valve Peak Velocity: 1.12 m/s Mean Velocity: 0.82 m/s Peak Gradient: 5.01 mmHg Mean Gradient: 2.85 mmHg AV Area (continuity): 2.15 cm^2 AV VTI: 21.08 cm AV DVI: 0.66 LVOT Peak Velocity: 0.86 m/s Peak Gradient: 2.95mmHg Mean Velocity: 0.56 m/s Mean Gradient: 1.47 mmHg LVOT Diameter: 2.03 cm LVOT VTI: 13.98 cm LVOT Area: 3.24 cm^2 LVOT SV:45.22 ml LVOT CO: 3.66 l/min LVOT CI: 1.92 l/min/m^2 Tricuspid Valve TR Velocity: 2.4 m/s TR Gradient: 23.02 mmHgMoreno Valley Community HospitalCT-GLUCOSE [id number] 11:13:00 Test Item Value Reference Range Interpretation Comments POC-GLUCOSE METER 71 mg/dL 70-110 : TESTED A T [facility] 5294 (BEAKER) (test code = [facility], 1538) 53462: Printing Sales Representative/Techni nael ID = [id number] for Yunior viveros (pca2)Rosy RAD, CHEST, 1 VIEW, NON [id number] 08:15:00Reason for exam:->post-opShould this be performed at the bedside?->Yes [facility]ABORTY : 1945 Sex: FFINAL REPORT RAD, CHEST, 1 VIEW, NON DEPT INDICATION: post-op COMPARISON: Prior day's exam FINDINGS: Portable frontal view of the chest. IMPRESSION: Support Lines: Pigtail catheter over the left lung base has been removed. Lungs and pleura: No new consolidation. Stableleft effusion. No pneumothorax.Heart and mediastinum: Stable contours. Stable surgical changes.Additional findings: None. Signed: JR Conrad Robert MDReport Verified Date/Time: 08/04/2020 08:15:29 Reading Location: [facility] Radiology Reading Room POCT-GLUCOSE [id number] 08:08:00 Test Item Value Reference Range Interpretation Comments POC-GLUCOSE METER 80 mg/dL 70-110 : TESTED A T [facility] 6720 (EDUARD) (test code = [facility] [place], 1538) [id number]: Printing Sales Representative/Techni nael ID = [id number] for Yunior viveros (pca2)Rosy BASIC METABOLIC [id number] 04:51:00 Test Item Value Reference Range Interpretation Comments SODIUM (BEAKER) 132 meq/L 136-145 L (test code = 381) POTASSIUM (BEAKER) 4.6 meq/L 3.5-5.1 Specimen slightly (test code = 379) hemolyzed CHLORIDE (BEAKER) 103 meq/L 98-107 (test code = 382) CO2 (BEAKER) (test 23 meq/L 22-29 code = 355) BLOOD UREA NITROGEN 13 mg/dL 7-21 (BEAKER) (test code = 354) CREATININE (BEAKER) 0.45 mg/dL 0.57-1.25 L Specimen slightly (test code = 358) hemolyzed GLUCOSE RANDOM 83 mg/dL 70-105 (BEAKER) (test code = 652) CALCIUM (BEAKER) 7.5 mg/dL 8.4-10.2 L (test code = 697) EGFR (BEAKER) (test 165 mL/min/1.73 ESTIM ATED GFR IS code = 1092) sq m NOT ACCURATE CREATININE CLEARANCE IN PREDICTING GLOMERULAR FILTRATION RATE . ESTIMATED GFR I S NOT APPLICABLE FOR DIALYSIS PATIEN TS. Printing Sales Representative ID - DAYANARA MSpecimen moderately ictericHEPATIC FUNCTION [id number] 04:51:00 Test Item Value Reference Range Interpretation Comments TOTAL PROTEIN (BEAKER) 4.8 gm/dL 6.0-8.3 L Speci men slightly (test code = 770) hemolyzed ALBUMIN (BEAKER) (test 1.7 g/dL 3.5-5.0 L Speci men slightly code = 1145) hemolyzed BILIRUBIN TOTAL 6.1 mg/dL 0.2-1.2 H Specimen sli ghtly (BEAKER) (test code = hemoly zed 377) BILIRUBIN DIRECT 4.4 mg/dL 0.1-0.5 H Specimen sl ightly (BEAKER) (test code = hemoly zed 706) ALKALINE PHOSPHATASE 765 U/L 40-150 H (BEAKER) (test code = 346) AST (SGOT) (BEAKER) 63 U/L 5-34 H Specimen slightly (test code = 353) hemolyzed ALT (SGPT) (BEAKER) 44 U/L 6-55 Specimen slightly (test code = 347) hemolyzed Printing Sales Representative ID - DAYANARA MSpecimen moderately [id number] 04:48:00 Test Item Value Reference Range Interpretation Comments MAGNESIUM (BEAKER) 1.8 mg/dL 1.6-2.6 Specimen slightly (test code = 627) hemolyzed Printing Sales Representative ID - DAYANARA [id number] 04:48:00 Test Item Value Reference Range Interpretation Comments PHOSPHORUS (BEAKER) 3.3 mg/dL 2.3-4.7 Specimen slightly (test code = 604) hemolyzed Printing Sales Representative ID - DAYANARA [id number] 04:17:00 Test Item Value Reference Range Interpretation Comments PARTIAL THROMBOPLASTIN TIME 37.6 seconds 22.5-36.0 H (BEAKER) (test code = 760) PROTHROMBIN TIME/[id number] 04:16:00 Test Item Value Reference Range Interpretation Comments PROTIME (BEAKER) 19.3 seconds 11.9-14.2 H (test code = 759) INR (BEAKER) (test 1.65 See_Comment [Automat ed message] code = 370) The system [employer] generated this result transmitted ref erence range: <=5.90. The reference range was not used to int erpret this result as normal/abnormal . RECOMMENDED COUMADIN/WARFARIN INR THERAPY RANGESSTANDARD DOSE: 2.0 - 3.0 Includes: PROPHYLAXIS forvenous thrombosis, systemic embolization; TREATMENT for venous thrombosis and/or pulmonary embolus.HIGH RISK: Target INR is 2.5-3.5 for patients with mechanical heart valves.CBC (HEMOGRAM ONLY)2020-08-04 04:11:00 Test Item Value Reference Range Interpretation Comments WHITE BLOOD CELL COUNT (BEAKER) 16.5 K/ L 3.5-10.5 H (test code = 775) RED BLOOD CELL COUNT (BEAKER) 3.05 M/ L 3.93-5.22 L (test code = 761) HEMOGLOBIN (BEAKER) (test code = 8.8 GM/DL 11.2-15.7 L 410) HEMATOCRIT (BEAKER) (test code = 26.8 % 34.1-44.9 L 411) MEAN CORPUSCULAR VOLUME (BEAKER) 87.9 fL 79.4-94.8 (test code = 753) MEAN CORPUSCULAR HEMOGLOBIN 28.9 pg 25.6-32.2 (BEAKER) (test code = 751) MEAN CORPUSCULAR HEMOGLOBIN CONC 32.8 GM/DL 32.2-35.5 (BEAKER) (test code = 752) RED CELL DISTRIBUTION WIDTH 18.9 % 11.7-14.4 H (BEAKER) (test code = 412) PLATELET COUNT (BEAKER) (test 556 K/CU MM 150-450 H code = 756) MEAN PLATELET VOLUME (BEAKER) 9.4 fL 9.4-12.3 (test code = 754) NUCLEATED RED BLOOD CELLS 0 /100 WBC 0-0 (BEAKER) (test code = 413) POCT-GLUCOSE [id number] 21:15:00 Test Item Value Reference Range Interpretation Comments POC-GLUCOSE METER 102 mg/dL 70-110 : TESTED A T [facility] 6720 (BEAKER) (test code = [facility] [place], 1538) 16315: Printing Sales Representative/Techni nael ID = [id number] for MAYELIN MIR, CHOLANGIOGRAM, [id number] 18:45:00Reason for exam:->elevated bilirubin / alk phos [facility] : 1945 Sex: FFINAL REPORT History: Biliary obstruction. PROCEDURE: Following informed consent, collection gram was performed to the patient's existing left internal/external biliary drainage catheter. The patient tolerated the procedure well without immediate complications and was discharged from the department in stable condition. FINDINGS: Cholangiogram through the patient's existing left internal/external biliary drainage catheter demonstrates the catheter to lie in expected position entering the left intrahepatic ductal system, traversing the common bile duct and line with its distal tip coiled in the duodenum. Injected contrast flows through the catheter into the duodenum without evidence for obstruction. IMPRESSION: 1. Properly positioned and functioning left internal/external biliary drainage catheter. Total fluoroscopy time: 0.7 minutes. Estimated total patient dose reported as (Ka,r): 26.5 mGy Signed: Jared Austin Verified Date/Time: 08/03/2020 18:45:01 Reading Location: [place] [address] Angio Body Reading Room IR T-tube Catheter Cholangiogram 2020-08-03 18:45:00Interface, External Ris In - 08/03/2020 6:47 PM CDTFINAL REPORT History: Biliary obstruction. PROCEDURE: Following informed consent, collection gram was performed to the patient's existing left internal/external biliary drainage catheter. The patient tolerated the procedure well without immediate complications and was discharged from the department in stable condition. FINDINGS: Cholangiogram through the patient's existing left internal/external biliary drainage catheter demonstrates the catheter to lie in expected position entering the left intrahepatic ductal system, traversing the common bile duct and line with its distal tip coiled in the duodenum. Injected contrast flows through the catheter into the duodenum without evidence for obstruction. IMPRESSION: 1. Properly positioned and functioning left internal/external biliary drainage catheter. Total fluoroscopy time:0.7 minutes. Estimated total patient dose reported as (Ka,r): 26.5 mGy Signed: Jared Austin Verified Date/Time: 08/03/2020 18:45:01 Reading Location: [place] [address] [facility]io Body [facility] [id number] 17:04:00 Test Item Value Reference Range Interpretation Comments POC-GLUCOSE METER 84 mg/dL 70-110 : TESTED A T [facility] 6720 ([email or web address]) (test code = [facility] [place], 1538) 42577: Printing Sales Representative/Techni nael ID = [id number] for SAMANTHA CIFUENTES POCT-GLUCOSE [id number] 11:49:00 Test Item Value Reference Range Interpretation Comments POC-GLUCOSE METER 91 mg/dL 70-110 : TESTED A T [facility] 6720 (BEAKER) (test code = [facility] [place], 1538) 16229: Printing Sales Representative/Techni nael ID = [id number] for MARISOL STARR, SAMANTHA RAD, CHEST, 1 VIEW, NON [id number] 10:25:00Reason for exam:->post-opShould this be performed at the bedside?->Yes [facility] : 1945 Sex: FFINAL REPORT RAD, CHEST, 1 VIEW, NON DEPT INDICATION: post-op COMPARISON: Prior day's exam FINDINGS: Portable frontal view of the chest. IMPRESSION: Support Lines: Stable. Lungs and pleura: No new consolidation. Trace left effusion. No pneumothorax.Heart and mediastinum: Stable contours. Stable surgical changes.Additional findings: None. Signed: JR Conrad Robert MDReport Verified Date/Time: 08/03/2020 10:25:01 Reading Location: [facility] Radiology Reading Room BASIC METABOLIC [id number] 04:45:00 Test Item Value Reference Range Interpretation Comments SODIUM (BEAKER) 133 meq/L 136-145 L (test code = 381) POTASSIUM (BEAKER) 4.7 meq/L 3.5-5.1 (test code = 379) CHLORIDE (BEAKER) 103 meq/L 98-107 (test code = 382) CO2 (BEAKER) (test 25 meq/L code = 355) BLOOD UREA NITROGEN 15 mg/dL 7-21 (BEAKER) (test code = 354) CREATININE (BEAKER) 0.42 mg/dL 0.57-1.25 L (test code = 358) GLUCOSE RANDOM 85 mg/dL 70-105 (BEAKER) (test code = 652) CALCIUM (BEAKER) 7.7 mg/dL 8.4-10.2 L (test code = 697) EGFR (BEAKER) (test 178 mL/min/1.73 ESTIM ATED GFR IS code = 1092) sq m NOT ACCURATE CREATININE CLEARANCE IN PREDICTING GLOMERULAR FILTRATION RATE . ESTIMATED GFR I S NOT APPLICABLE FOR DIALYSIS PATIEN TS. Printing Sales Representative ID - DAYANARA MSpecimen moderately ictericHEPATIC FUNCTION [id number] 04:45:00 Test Item Value Reference Range Interpretation Comments TOTAL PROTEIN (BEAKER) (test code = 4.7 gm/dL 6.0-8.3 L 770) ALBUMIN (BEAKER) (test code = 1145) 1.8 g/dL 3.5-5.0 L BILIRUBIN TOTAL (BEAKER) (test code 6.0 mg/dL 0.2-1.2 H = 377) BILIRUBIN DIRECT (BEAKER) (test 4.9 mg/dL 0.1-0.5 H code = 706) ALKALINE PHOSPHATASE (BEAKER) (test 962 U/L 40-150 H code = 346) AST (SGOT) (BEAKER) (test code = 64 U/L 5-34 H 353) ALT (SGPT) (BEAKER) (test code = 51 U/L 6-55 347) Printing Sales Representative ID - DAYANARA MSpecimen moderately ictericRAD, CHEST, 1 VIEW, NON DEPT 2020-08-03 04:29:00Reason for exam:->S/P chest tube removal R pleuralShould this be performed at the bedside?->Yes [facility]ORT[facility] : 1945 Sex: FFINAL REPORT CLINICAL INDICATION: Status post right chest tube removal. Comparison: Same dated 0651 hours There is no pneumothorax after right chest tube removal. The cardiomediastinal contours are stable. The lung volumes remain low. Right greater than left parenchymal opacities are similar to previous. There is no pneumothorax. Remaining support lines are stable. Signed: Janeth Smith MDReport Verified Date/Time: 08/03/2020 04:29:30 MAGNESIUM 2020-08-03 04:23:00 Test Item Value Reference Range Interpretation Comments MAGNESIUM (BEAKER) (test code = 1.9 mg/dL 1.6-2.6 627) Printing Sales Representative ID - DAYANARA [id number] 04:23:00 Test Item Value Reference Range Interpretation Comments PHOSPHORUS (BEAKER) (test code = 3.0 mg/dL 2.3-4.7 604) Printing Sales Representative ID - DAYANARA [id number] 04:10:00 Test Item Value Reference Range Interpretation Comments PARTIAL THROMBOPLASTIN TIME 35.4 seconds 22.5-36.0 (BEAKER) (test code = 760) PROTHROMBIN TIME/[id number] 04:09:00 Test Item Value Reference Range Interpretation Comments PROTIME (BEAKER) 15.6 seconds 11.9-14.2 H (test code = 759) INR (BEAKER) (test 1.26 See_Comment [Automat ed message] code = 370) The system [employer] generated this result transmitted ref erence range: <=5.90. The reference range was not used to int erpret this result as normal/abnormal . RECOMMENDED COUMADIN/WARFARIN INR THERAPY RANGESSTANDARD DOSE: 2.0 - 3.0 Includes: PROPHYLAXIS forvenous thrombosis, systemic embolization; TREATMENT for venous thrombosis and/or pulmonary embolus.HIGH RISK: Target INR is 2.5-3.5 for patients with mechanical heart valves.CBC (HEMOGRAM ONLY)2020-08-03 03:54:00 Test Item Value Reference Range Interpretation Comments WHITE BLOOD CELL COUNT (BEAKER) 19.0 K/ L 3.5-10.5 H (test code = 775) RED BLOOD CELL COUNT (BEAKER) 3.04 M/ L 3.93-5.22 L (test code = 761) HEMOGLOBIN (BEAKER) (test code = 8.9 GM/DL 11.2-15.7 L 410) HEMATOCRIT (BEAKER) (test code = 27.1 % 34.1-44.9 L 411) MEAN CORPUSCULAR VOLUME (BEAKER) 89.1 fL 79.4-94.8 (test code = 753) MEAN CORPUSCULAR HEMOGLOBIN 29.3 pg 25.6-32.2 (BEAKER) (test code = 751) MEAN CORPUSCULAR HEMOGLOBIN CONC 32.8 GM/DL 32.2-35.5 (BEAKER) (test code = 752) RED CELL DISTRIBUTION WIDTH 18.3 % 11.7-14.4 H (BEAKER) (test code = 412) PLATELET COUNT (BEAKER) (test 473 K/CU MM 150-450 H code = 756) MEAN PLATELET VOLUME (BEAKER) 9.3 fL 9.4-12.3 L (test code = 754) NUCLEATED RED BLOOD CELLS 0 /100 WBC 0-0 (BEAKER) (test code = 413) POCT-GLUCOSE [id number] 21:23:00 Test Item Value Reference Range Interpretation Comments POC-GLUCOSE METER 102 mg/dL 70-110 : TESTED A T [facility] 6720 ([email or web address]) (test code = [facility], 153) 25729: Printing Sales Representative/Techni nael ID = [id number] for DA VISLELAO POCT-GLUCOSE [id number] 16:22:00 Test Item Value Reference Range Interpretation Comments POC-GLUCOSE METER 104 mg/dL 70-110 : TESTED A T [facility] 6720 (BEAKER) (test code = [facility], 153) 71614: Printing Sales Representative/Techni nael ID = [id number] for An suraj (pca2)Rosy POCT-GLUCOSE [id number] 11:56:00 Test Item Value Reference Range Interpretation Comments POC-GLUCOSE METER 144 mg/dL 70-110 H : TESTED A T [facility] 6720 (BEAKER) (test code = [facility], 1538) 43117: Printing Sales Representative/Techni nael ID = [id number] for An suraj (pca2), Rosy BODY FLUID CULTURE + GRAM [id number] 11:07:00 Test Item Value Reference Range Interpretation Comments CULTURE (BEAKER) A 2+ Leanna (test code = albicans 1095) CULTURE (BEAKER) ENTEROCOCCUS A 1+ Enteroco ccus (test code = FAECALIS faecalis 1095) Ampicillin (test S code = 26) Linezolid (test S code = 40) Vancomycin (test S code = 13) GRAM STAIN RESULT <1+ WBCs (BEAKER) (test code = 1123) GRAM STAIN RESULT No organisms seen (BEAKER) (test code = 883469) Blood Culture - Routine (Right Venipuncture)2020-08-02 11:00:00 Test Item Value Reference Range Interpretation Comments Result (test code = No growth in 5 days 6463-4) [facility] [id number] 11:00:00 Test Item Value Reference Range Interpretation Comments CULTURE (BEAKER) (test No growth in 5 days code = 1095) POCT-GLUCOSE [id number] 08:13:00 Test Item Value Reference Range Interpretation Comments POC-GLUCOSE METER 101 mg/dL 70-110 : [facility] ([facility] (test code = LUCY Omer [facility], 1538) [address]: Printing Sales Representative/Techni nael ID = [id number] for An suraj (pca2), Rosy BLOOD [id number] 08:01:00 Test Item Value Reference Range Interpretation Comments CULTURE (BEAKER) (test No growth in 5 days code = 1095) RAD, CHEST, 1 VIEW, NON [id number] 07:57:00Reason for exam:->post-opShould this be performed at the bedside?->Yes [facility] : 1945 Sex: FFINAL REPORT RAD, CHEST, 1 VIEW, NON DEPT INDICATION: post-op COMPARISON: Prior day's exam FINDINGS: Portable frontal view of the chest. IMPRESSION: Support Lines: Stable. Lungs and pleura: No new consolidation. No visible residual pneumothorax.Heart and mediastinum: Stable contours. Stable surgical changes.Additional findings: None. Signed: JR Conrad Robert MD Report Verified Date/Time: 08/02/2020 07:57:26 Reading Location: [facility] Radiology Reading Room [id number] 06:14:00 Test Item Value Reference Range Interpretation Comments MAGNESIUM (BEAKER) (test code = 2.0 mg/dL 1.6-2.6 627) Printing Sales Representative ID - KYMBERLY [id number] 06:14:00 Test Item Value Reference Range Interpretation Comments PHOSPHORUS (BEAKER) (test code = 3.1 mg/dL 2.3-4.7 604) Printing Sales Representative ID - KYMBERLY WBASIC METABOLIC [id number] 06:14:00 Test Item Value Reference Range Interpretation Comments SODIUM (BEAKER) 133 meq/L 136-145 L (test code = 381) POTASSIUM (BEAKER) 5.2 meq/L 3.5-5.1 H (test code = 379) CHLORIDE (BEAKER) 103 meq/L 98-107 (test code = 382) CO2 (BEAKER) (test 25 meq/L 22-29 code = 355) BLOOD UREA NITROGEN 20 mg/dL 7-21 (BEAKER) (test code = 354) CREATININE (BEAKER) 0.46 mg/dL 0.57-1.25 L (test code = 358) GLUCOSE RANDOM 87 mg/dL 70-105 (BEAKER) (test code = 652) CALCIUM (BEAKER) 7.6 mg/dL 8.4-10.2 L (test code = 697) EGFR (BEAKER) (test 161 mL/min/1.73 ESTIM ATED GFR IS code = 1092) sq m NOT ACCURATE CREATININE CLEARANCE IN PREDICTING GLOMERULAR FILTRATION RATE . ESTIMATED GFR I S NOT APPLICABLE FOR DIALYSIS PATIEN TS. Printing Sales Representative ID - KYMBERLY Yanez slightly ictericHEPATIC FUNCTION [id number] 06:14:00 Test Item Value Reference Range Interpretation Comments TOTAL PROTEIN (BEAKER) (test code = 4.5 gm/dL 6.0-8.3 L 770) ALBUMIN (BEAKER) (test code = 1145) 1.8 g/dL 3.5-5.0 L BILIRUBIN TOTAL (BEAKER) (test code 4.3 mg/dL 0.2-1.2 H = 377) BILIRUBIN DIRECT (BEAKER) (test 3.4 mg/dL 0.1-0.5 H code = 706) ALKALINE PHOSPHATASE (BEAKER) (test 927 U/L 40-150 H code = 346) AST (SGOT) (BEAKER) (test code = 62 U/L 5-34 H 353) ALT (SGPT) (BEAKER) (test code = 53 U/L 6-55 347) Printing Sales Representative ID - KYMBERLY Yanez slightly [id number] 05:51:00 Test Item Value Reference Range Interpretation Comments PARTIAL THROMBOPLASTIN TIME 36.4 seconds 22.5-36.0 H (BEAKER) (test code = 760) PROTHROMBIN TIME/[id number] 05:50:00 Test Item Value Reference Range Interpretation Comments PROTIME (BEAKER) 15.2 seconds 11.9-14.2 H (test code = 759) INR (BEAKER) (test 1.22 See_Comment [Automat ed message] code = 370) The system SolarPrint generated this result transmitted ref erence range: <=5.90. The reference range was not used to int erpret this result as normal/abnormal . RECOMMENDED COUMADIN/WARFARIN INR THERAPY RANGESSTANDARD DOSE: 2.0 - 3.0 Includes: PROPHYLAXIS forvenous thrombosis, systemic embolization; TREATMENT for venous thrombosis and/or pulmonary embolus.HIGH RISK: Target INR is 2.5-3.5 for patients with mechanical heart valves.CBC (HEMOGRAM ONLY)2020-08-02 05:44:00 Test Item Value Reference Range Interpretation Comments WHITE BLOOD CELL COUNT (BEAKER) 18.3 K/ L 3.5-10.5 H (test code = 775) RED BLOOD CELL COUNT (BEAKER) 2.92 M/ L 3.93-5.22 L (test code = 761) HEMOGLOBIN (BEAKER) (test code = 8.2 GM/DL 11.2-15.7 L 410) HEMATOCRIT (BEAKER) (test code = 25.5 % 34.1-44.9 L 411) MEAN CORPUSCULAR VOLUME (BEAKER) 87.3 fL 79.4-94.8 (test code = 753) MEAN CORPUSCULAR HEMOGLOBIN 28.1 pg 25.6-32.2 (BEAKER) (test code = 751) MEAN CORPUSCULAR HEMOGLOBIN CONC 32.2 GM/DL 32.2-35.5 (BEAKER) (test code = 752) RED CELL DISTRIBUTION WIDTH 18.0 % 11.7-14.4 H (BEAKER) (test code = 412) PLATELET COUNT (BEAKER) (test 391 K/CU MM 150-450 code = 756) MEAN PLATELET VOLUME (BEAKER) 10.2 fL 9.4-12.3 (test code = 754) NUCLEATED RED BLOOD CELLS 0 /100 WBC 0-0 (BEAKER) (test code = 413) POCT-GLUCOSE [id number] 21:33:00 Test Item Value Reference Range Interpretation Comments POC-GLUCOSE METER 104 mg/dL 70-110 : TESTED A T [facility] 6720 (BEAKER) (test code = [facility], 153) 25[address]: Printing Sales Representative/Techni nael ID = [id number] for PH GARRETSHERYL POCT-GLUCOSE [id number] 17:42:00 Test Item Value Reference Range Interpretation Comments POC-GLUCOSE METER 106 mg/dL 70-110 : TESTED A T [facility] 6720 (BEAKER) (test code = [facility], 153) 82199: Printing Sales Representative/Techni nael ID = [id number] for Nadia HASSAN BLOOD [id number] 12:33:00 Test Item Value Reference Range Interpretation Comments CULTURE (BEAKER) (test KLEBSIELLA A From Anaerobic code = 1095) OXYTOCA ESBL Bottle Only Klebsiella oxytoca ESBL Amikacin (test code = S 1) Ampicillin + Sulbactam R (test code = 6) Aztreonam (test code = R 32) Cefepime (test code = R 51) Cefoxitin (test code = R 68) Ceftazidime (test code R = 27) Ceftriaxone (test code R = 52) Ertapenem (test code = S 38) Gentamicin (test code = S 18) Levofloxacin (test code S = 22) Meropenem (test code = S 34) Nitrofurantoin (test S code = 23) Piperacillin + R Tazobactam (test code = 29) Tetracycline (test code S = 2) Tobramycin (test code = S 25) Trimethoprim + S Sulfamethoxazole (test code = 47) GRAM STAIN RESULT From anaerobic (BEAKER) (test code = bottle only: 1123) gram negative rods POCT-GLUCOSE [id number] 12:16:00 Test Item Value Reference Range Interpretation Comments POC-GLUCOSE METER 113 mg/dL 70-110 H : TESTED A T [facility] 6720 (BEAKER) (test code = LUCY Omer [facility], 1538) 78502: Printing Sales Representative/Techni nael ID = [id number] for CRYSTAL ROEM GARCIA HEPATIC FUNCTION [id number] 07:40:00 Test Item Value Reference Range Interpretation Comments TOTAL PROTEIN (BEAKER) (test code = 4.8 gm/dL 6.0-8.3 L 770) ALBUMIN (BEAKER) (test code = 1145) 1.9 g/dL 3.5-5.0 L BILIRUBIN TOTAL (BEAKER) (test code 4.7 mg/dL 0.2-1.2 H = 377) BILIRUBIN DIRECT (BEAKER) (test 3.7 mg/dL 0.1-0.5 H code = 706) ALKALINE PHOSPHATASE (BEAKER) (test 1011 U/L 40-150 H code = 346) AST (SGOT) (BEAKER) (test code = 72 U/L 5-34 H 353) ALT (SGPT) (BEAKER) (test code = 59 U/L 6-55 H 347) Printing Sales Representative ID - TAHIRA Yanez slightly ictericBASIC METABOLIC [id number] 07:39:00 Test Item Value Reference Range Interpretation Comments SODIUM (BEAKER) 133 meq/L 136-145 L (test code = 381) POTASSIUM (BEAKER) 5.2 meq/L 3.5-5.1 H (test code = 379) CHLORIDE (BEAKER) 103 meq/L 98-107 (test code = 382) CO2 (BEAKER) (test 25 meq/L 22-29 code = 355) BLOOD UREA NITROGEN 20 mg/dL 7-21 (BEAKER) (test code = 354) CREATININE (BEAKER) 0.46 mg/dL 0.57-1.25 L (test code = 358) GLUCOSE RANDOM 79 mg/dL 70-105 (BEAKER) (test code = 652) CALCIUM (BEAKER) 7.7 mg/dL 8.4-10.2 L (test code = 697) EGFR (BEAKER) (test 161 mL/min/1.73 ESTIM ATED GFR IS code = 1092) sq m NOT ACCURATE CREATININE CLEARANCE IN PREDICTING GLOMERULAR FILTRATION RATE . ESTIMATED GFR I S NOT APPLICABLE FOR DIALYSIS PATIEN TS. Printing Sales Representative ID Nikolay SMITHTAHIRA WSpecimen slightly [id number] 07:38:00 Test Item Value Reference Range Interpretation Comments MAGNESIUM (BEAKER) (test code = 2.1 mg/dL 1.6-2.6 627) Printing Sales Representative ID - TAHIRA [id number] 07:38:00 Test Item Value Reference Range Interpretation Comments PHOSPHORUS (BEAKER) (test code = 2.5 mg/dL 2.3-4.7 604) Printing Sales Representative ID Nikolay HOFFMANN WRAD, CHEST, 1 VIEW, NON [id number] 07:31:00Reason for exam:->post-opShould this be performed at the bedside?->Yes [facility] : 1945 Sex: FFINAL REPORT RAD, CHEST, 1 VIEW, NON DEPT INDICATION: post-op COMPARISON: Prior day's exam FINDINGS: Portable frontal view of the chest. IMPRESSION: Support Lines: Right chest tube. Port-A-Cath tip overlies the atriocaval junction Lungs and pleura: Lungs are clear No pneumothorax.Heart and mediastinum: Stable contours.Additional findings: None. Signed: Bianca Harris Verified Date/Time: 08/01/2020 07:31:10 Reading Location: [address] Neuro Reading Room POCT-GLUCOSE [id number] 07:29:00 Test Item Value Reference Range Interpretation Comments POC-GLUCOSE METER 90 mg/dL 70-110 : TESTED A T [facility] 6720 (BEAKER) (test [facility] = [facility] 1538) 37128: Printing Sales Representative/Techni nael ID = [id number] for ROME BACH PROTHROMBIN TIME/[id number] 06:23:00 Test Item Value Reference Range Interpretation Comments PROTIME (BEAKER) 14.7 seconds 11.9-14.2 H (test code = 759) INR (BEAKER) (test 1.17 See_Comment [Automat ed message] code = 370) The system Solar[employer] generated this result transmitted ref erence range: <=5.90. The reference range was not used to int erpret this result as normal/abnormal . RECOMMENDED COUMADIN/WARFARIN INR THERAPY RANGESSTANDARD DOSE: 2.0 - 3.0 Includes: PROPHYLAXIS forvenous thrombosis, systemic embolization; TREATMENT for venous thrombosis and/or pulmonary embolus.HIGH RISK: Target INR is 2.5-3.5 for patients with mechanical heart valves.[id number] 06:23:00 Test Item Value Reference Range Interpretation Comments PARTIAL THROMBOPLASTIN TIME 37.4 seconds 22.5-36.0 H (BEAKER) (test code = 760) CBC (HEMOGRAM ONLY)2020-08-01 06:22:00 Test Item Value Reference Range Interpretation Comments WHITE BLOOD CELL COUNT 16.4 K/ L 3.5-10.5 H (BEAKER) (test code = 775) RED BLOOD CELL COUNT 3.16 M/ L 3.93-5.22 L (BEAKER) (test code = 761) HEMOGLOBIN (BEAKER) 9.0 GM/DL 11.2-15.7 L (test code = 410) HEMATOCRIT (BEAKER) 27.8 % 34.1-44.9 L (test code = 411) MEAN CORPUSCULAR 88.0 fL 79.4-94.8 VOLUME (BEAKER) (test code = 753) MEAN CORPUSCULAR 28.5 pg 25.6-32.2 HEMOGLOBIN (BEAKER) (test code = 751) MEAN CORPUSCULAR 32.4 GM/DL 32.2-35.5 HEMOGLOBIN CONC (BEAKER) (test code = 752) RED CELL DISTRIBUTION 18.0 % 11.7-14.4 H WIDTH (BEAKER) (test code = 412) PLATELET COUNT 310 K/CU MM 150-[address] (BEAKER) (test code = result compared to 756) previous result , clinical correl ation required MEAN PLATELET VOLUME 10.6 fL 9.4-12.3 (BEAKER) (test code = 754) NUCLEATED RED BLOOD 0 /100 WBC 0-0 CELLS (BEAKER) (test code = 413) POCT-GLUCOSE [id number] 21:42:00 Test Item Value Reference Range Interpretation Comments POC-GLUCOSE METER 103 mg/dL 70-110 : TESTED A T [facility] 6720 (BEAKER) (test code = [facility], 153) 20416: Printing Sales Representative/Techni nael ID = [id number] for PH ILIP, SHERYL POCT-GLUCOSE [id number] 17:54:00 Test Item Value Reference Range Interpretation Comments POC-GLUCOSE METER 103 mg/dL 70-110 : TESTED A T [facility] 6720 (BEAKER) (test code = [facility], 153) 34676: Printing Sales Representative/Techni nael ID = [id number] for [place] LLIAMS, TYNEKA POCT-GLUCOSE [id number] 12:31:00 Test Item Value Reference Range Interpretation Comments POC-GLUCOSE METER 125 mg/dL 70-110 H : TESTED A T [facility] 6720 (BEAKER) (test code = LUCY Omer [place], 1538) 15688: Printing Sales Representative/Techni nael ID = [id number] for ROME CLINTON POCT-GLUCOSE [id number] 08:37:00 Test Item Value Reference Range Interpretation Comments POC-GLUCOSE METER 103 mg/dL 70-110 : TESTED A T [facility] 6720 (BEAKER) (test code = LUCY Omer [facility], 1538) 12445: Printing Sales Representative/Techni nael ID = [id number] for ROME CLINTON HEPATIC FUNCTION [id number] 07:57:00 Test Item Value Reference Range Interpretation Comments TOTAL PROTEIN (BEAKER) (test code = 4.4 gm/dL 6.0-8.3 L 770) ALBUMIN (BEAKER) (test code = 1145) 1.8 g/dL 3.5-5.0 L BILIRUBIN TOTAL (BEAKER) (test code 5.1 mg/dL 0.2-1.2 H = 377) BILIRUBIN DIRECT (BEAKER) (test 4.1 mg/dL 0.1-0.5 H code = 706) ALKALINE PHOSPHATASE (BEAKER) (test 898 U/L 40-150 H code = 346) AST (SGOT) (BEAKER) (test code = 74 U/L 5-34 H 353) ALT (SGPT) (BEAKER) (test code = 54 U/L 6-55 347) Printing Sales Representative ID - BSSpecimen moderately ictericBASIC METABOLIC [id number] 07:54:00 Test Item Value Reference Range Interpretation Comments SODIUM (BEAKER) 134 meq/L 136-145 L (test code = 381) POTASSIUM (BEAKER) 4.7 meq/L 3.5-5.1 (test code = 379) CHLORIDE (BEAKER) 104 meq/L 98-107 (test code = 382) CO2 (BEAKER) (test 24 meq/L 22-29 code = 355) BLOOD UREA NITROGEN 23 mg/dL 7-21 H (BEAKER) (test code = 354) CREATININE (BEAKER) 0.49 mg/dL 0.57-1.25 L (test code = 358) GLUCOSE RANDOM 91 mg/dL 70-105 (BEAKER) (test code = 652) CALCIUM (BEAKER) 7.6 mg/dL 8.4-10.2 L (test code = 697) EGFR (BEAKER) (test 149 mL/min/1.73 ESTIM ATED GFR IS code = 1092) sq m NOT ACCURATE CREATININE CLEARANCE IN PREDICTING GLOMERULAR FILTRATION RATE . ESTIMATED GFR I S NOT APPLICABLE FOR DIALYSIS PATIEN TS. Printing Sales Representative ID - BSSpecimen moderately ictericRAD, CHEST, 1 VIEW, NON DEPT 2020-07-31 07:43:00Reason for exam:->post-opShould this be performed at the bedside?->[facility] : 1945 Sex: FFINAL REPORT RAD, CHEST, 1 VIEW, NON DEPT INDICATION: post-op COMPARISON: Prior day's exam FINDINGS: Portable frontal view of the chest. IMPRESSION: Support Lines: Port-A-Cath tip overlies the SVC. Right chest tube. Lungs and pleura: Small left effusion and left basilar atelectasis No pneumothorax.Heart and mediastinum: Stable contours. Stable surgical changes.Additional findings: None. Signed: Bianca Harris MDReport Verified Date/Time: 07/31/2020 07:43:30 ReadingLocation: [facility] B1 C013V Neuro Reading Room Electronically signed by: BIANCA HARRIS MD on07/31/2020 07:43 AM [id number] 07:28:00 Test Item Value Reference Range Interpretation Comments MAGNESIUM (EDUARD) (test code = 2.2 mg/dL 1.6-2.6 627) Printing Sales Representative ID - [id number] 07:28:00 Test Item Value Reference Range Interpretation Comments PHOSPHORUS (BEAKER) (test code = 2.3 mg/dL 2.3-4.7 604) Printing Sales Representative ID - BSCBC (HEMOGRAM ONLY)2020-07-31 06:51:00 Test Item Value Reference Range Interpretation Comments WHITE BLOOD CELL COUNT 13.7 K/ L 3.5-10.5 H (BEAKER) (test code = 775) RED BLOOD CELL COUNT 3.17 M/ L 3.93-5.22 L (BEAKER) (test code = 761) HEMOGLOBIN (BEAKER) 9.0 GM/DL 11.2-15.7 L (test code = 410) HEMATOCRIT (BEAKER) 28.2 % 34.1-44.9 L (test code = 411) MEAN CORPUSCULAR 89.0 fL 79.4-94.8 VOLUME (BEAKER) (test code = 753) MEAN CORPUSCULAR 28.4 pg 25.6-32.2 HEMOGLOBIN (BEAKER) (test code = 751) MEAN CORPUSCULAR 31.9 GM/DL 32.2-35.5 L HEMOGLOBIN CONC (BEAKER) (test code = 752) RED CELL DISTRIBUTION 17.8 % 11.7-14.4 H WIDTH (BEAKER) (test code = 412) PLATELET COUNT 202 K/CU MM 150-[address] (BEAKER) (test code = result compared to 756) previous result , clinical correl ation required MEAN PLATELET VOLUME 11.3 fL 9.4-12.3 (BEAKER) (test code = 754) NUCLEATED RED BLOOD 0 /100 WBC 0-0 CELLS (BEAKER) (test code = 413) [id number] 06:39:00 Test Item Value Reference Range Interpretation Comments PARTIAL THROMBOPLASTIN TIME 34.1 seconds 22.5-36.0 (BEAKER) (test code = 760) PROTHROMBIN TIME/[id number] 06:38:00 Test Item Value Reference Range Interpretation Comments PROTIME (BEAKER) 14.7 seconds 11.9-14.2 H (test code = 759) INR (BEAKER) (test 1.17 See_Comment [Automat ed message] code = 370) The system [employer]Print generated this result transmitted ref erence range: <=5.90. The reference range was not used to int erpret this result as normal/abnormal . RECOMMENDED COUMADIN/WARFARIN INR THERAPY RANGESSTANDARD DOSE: 2.0 - 3.0 Includes: PROPHYLAXIS forvenous thrombosis, systemic embolization; TREATMENT for venous thrombosis and/or pulmonary embolus.HIGH RISK: Target INR is 2.5-3.5 for patients with mechanical heart valves.POCT-GLUCOSE [id number] 12:28:00 Test Item Value Reference Range Interpretation Comments POC-GLUCOSE METER 99 mg/dL 70-110 : TESTED A T [facility] 6720 (BEAKER) (test code [facility], = 1538) 82723: Printing Sales Representative/Techni nael ID = [id number] for KEISHA NOSA, [place] Vancomycin level, [id number] 11:05:00 Test Item Value Reference Range Interpretation Comments Vancomycin Tr (test code = 10.1 ug/mL 10-20 4092-3) ANABELA (test code = ANABELA) Printing Sales Representative ID - GURJIT Lab Interpretation (test Normal code = 79634-8) [facility] HospitalVANCOMYCIN LEVEL, [id number] 11:05:00 Test Item Value Reference Range Interpretation Comments VANCOMYCIN TROUGH (BEAKER) (test 10.1 ug/mL 10.0-20.0 code = 522) Printing Sales Representative ID - GURJITRAD, CHEST, 1 VIEW, NON [id number] 04:37:00Reason for exam:->post-opShould this be performed at the bedside?->Yes [facility] : 1945 Sex: FFINAL REPORT Chest one view. Clinical history: post-op Comparison: Chest radiograph 07/29/2020, 4:00 PM. Technique: A single frontal view of the chest was obtained. Findings:Support lines and tubes are in satisfactory positions. The patient status post median sternotomy.The cardiomediastinal contours are stable. There are small bilateral pleural effusions (left greater t sepulveda right). There is airspace consolidation in the left lower lobe, which may represent atelectasis and/or pneumonia. There is mild subsegmental atelectasis in the right lung base. There is no pulmonary edema or pneumothorax. There is a partially imaged catheter overlying the upper abdomen. Signed: Cali Nagyeport Verified Date/Time: 07/30/2020 04:37:41 BASIC METABOLIC [id number] 04:34:00 Test Item Value Reference Range Interpretation Comments SODIUM (BEAKER) 131 meq/L 136-145 L (test code = 381) POTASSIUM (BEAKER) 4.5 meq/L 3.5-5.1 (test code = 379) CHLORIDE (BEAKER) 104 meq/L 98-107 (test code = 382) CO2 (BEAKER) (test 24 meq/L 22-29 code = 355) BLOOD UREA NITROGEN 27 mg/dL 7-21 H (BEAKER) (test code = 354) CREATININE (BEAKER) 0.46 mg/dL 0.57-1.25 L (test code = 358) GLUCOSE RANDOM 95 mg/dL 70-105 (BEAKER) (test code = 652) CALCIUM (BEAKER) 7.4 mg/dL 8.4-10.2 L (test code = 697) EGFR (BEAKER) (test 161 mL/min/1.73 ESTIM ATED GFR IS code = 1092) sq m NOT ACCURATE CREATININE CLEARANCE IN PREDICTING GLOMERULAR FILTRATION RATE . ESTIMATED GFR I S NOT APPLICABLE FOR DIALYSIS PATIEN TS. Printing Sales Representative ID - EDASIHEPATIC FUNCTION [id number] 04:33:00 Test Item Value Reference Range Interpretation Comments TOTAL PROTEIN (BEAKER) (test code = 4.3 gm/dL 6.0-8.3 L 770) ALBUMIN (BEAKER) (test code = 1145) 1.8 g/dL 3.5-5.0 L BILIRUBIN TOTAL (BEAKER) (test code 2.6 mg/dL 0.2-1.2 H = 377) BILIRUBIN DIRECT (BEAKER) (test 2.1 mg/dL 0.1-0.5 H code = 706) ALKALINE PHOSPHATASE (BEAKER) (test 598 U/L 40-150 H code = 346) AST (SGOT) (BEAKER) (test code = 59 U/L 5-34 H 353) ALT (SGPT) (BEAKER) (test code = 52 U/L 6-55 347) Printing Sales Representative ID - [id number] 04:31:00 Test Item Value Reference Range Interpretation Comments MAGNESIUM (BEAKER) (test code = 2.0 mg/dL 1.6-2.6 627) Printing Sales Representative ID - [id number] 04:31:00 Test Item Value Reference Range Interpretation Comments PHOSPHORUS (BEAKER) (test code = 2.1 mg/dL 2.3-4.7 L 604) Printing Sales Representative ID - [id number] 04:12:00 Test Item Value Reference Range Interpretation Comments PARTIAL THROMBOPLASTIN TIME 32.1 seconds 22.5-36.0 (BEAKER) (test code = 760) PROTHROMBIN [id number] 04:11:00 Test Item Value Reference Range Interpretation Comments PROTIME (BEAKER) 14.4 seconds 11.9-14.2 H (test code = 759) INR (BEAKER) (test 1.14 See_Comment [Automat ed message] code = 370) The system [employer] generated this result transmitted ref erence range: <=5.90. The reference range was not used to int erpret this result as normal/abnormal . RECOMMENDED COUMADIN/WARFARIN INR THERAPY RANGESSTANDARD DOSE: 2.0 - 3.0 Includes: PROPHYLAXIS forvenous thrombosis, systemic embolization; TREATMENT for venous thrombosis and/or pulmonary embolus.HIGH RISK: Target INR is 2.5-3.5 for patients with mechanical heart valves.CBC (HEMOGRAM ONLY)2020-07-30 03:55:00 Test Item Value Reference Range Interpretation Comments WHITE BLOOD CELL COUNT (BEAKER) 12.6 K/ L 3.5-10.5 H (test code = 775) RED BLOOD CELL COUNT (BEAKER) 3.17 M/ L 3.93-5.22 L (test code = 761) HEMOGLOBIN (BEAKER) (test code = 9.2 GM/DL 11.2-15.7 L 410) HEMATOCRIT (BEAKER) (test code = 28.1 % 34.1-44.9 L 411) MEAN CORPUSCULAR VOLUME (BEAKER) 88.6 fL 79.4-94.8 (test code = 753) MEAN CORPUSCULAR HEMOGLOBIN 29.0 pg 25.6-32.2 (BEAKER) (test code = 751) MEAN CORPUSCULAR HEMOGLOBIN CONC 32.7 GM/DL 32.2-35.5 (BEAKER) (test code = 752) RED CELL DISTRIBUTION WIDTH 17.5 % 11.7-14.4 H (BEAKER) (test code = 412) PLATELET COUNT (BEAKER) (test 115 K/CU MM 150-450 L code = 756) MEAN PLATELET VOLUME (BEAKER) 11.3 fL 9.4-12.3 (test code = 754) NUCLEATED RED BLOOD CELLS 0 /100 WBC 0-0 (BEAKER) (test code = 413) Prepare Leuko-Red [id number] 23:54:00 Test Item Value Reference Range Interpretation Comments Unit ABO (test code = 3635769) O Neg UNIT NUMBER (test code = [id number] 934-0) Status (test code = 4845576) TX_TIMEINCHART Blood Bank Product (test code PLATELETS = 2263) PRODUCT CODE (test code = U2373Z47 933-2) [facility] [id number] 22:46:00 Test Item Value Reference Range Interpretation Comments POC-GLUCOSE METER 116 mg/dL 70-110 H : TESTED A T [facility] 6720 (BEAKER) (test code MADY GRANGER [place], = 1538) [address]66: Printing Sales Representative/Techni nael ID = [id number] for KEISHA NOSA, [place] RAD, CHEST, 1 VIEW, NON [id number] 16:32:00Reason for exam:->S/P mediastinal chest tube removal. 2 chest tubes remainShould this be performed at the bedside?->Yes [facility]DA CHAKRABORTY : 1945 Sex: FFINAL REPORT Exam: RAD, CHEST, 1 VIEW, NON DEPTDate: 07/29/2020 4:31 PM Indication: Chest tube removal Comparison: Chest radiograph of earlier the same day FINDINGS: Lines/Tubes:Interval removal of mediastinal drain. Surgical right chest tube and pigtail left chest tube unchanged. Right chest port unchanged. Lungs:The lungs are moderately inflated. Unchanged mild bibasilar opacities. Pleura:No pleural effusion. No pneumothorax. Heart/Mediastinum:The cardiomediastinal silhouette is unchanged in size and contour. Bones/Soft Tissues: No acute osseous injury. Sternotomy wires unchanged. Abdomen: No free air below the diaphragm. IMPRESSION:No pneumothorax or pneumomediastinum status post interval mediastinal drain removal. Signed: Cindy Botello MDReport Verified Date/Time:07/29/2020 16:32:57 SARS-COV2/RT-PCR ([facility])2020-07-29 10:00:00 Test Item Value Reference Range Interpretation Comments SARS-COV2/RT-PCR (test Negative Not Detected, Negative, code = 2003635) See external report for linked test SARS-COV-2 PERFORMING LAB [facility] DEZ (test code = 4176448) Negative result for this test determines that SARS-CoV-2 RNA was not present in the specimen above the Limit of Detection (LOD). However, Negative results do not preclude SARS-CoV-2 infection and should not be used as the sole basis for treatment or patient management decisions. Negative results mustbe combined with clinical observations, patient history, and epidemiological information. A false negative result may occur if a specimen is improperly collected, transported or handled. A false negative result should be considered if patient's recent exposures or clinical presentation indicate that COVID-19 (SARS-CoV-2) is likely and diagnostic tests for other causes of illness are negative. Re-testing should be considered in cases of suspected false negatives.The limit of detection for this assay is 800 copies/mL.This SARS CoV-2 test is a real-time RT-PCR test intended for the qualitative detection of nucleic acid from SARS-CoV-2 in a nasopharyngeal swab specimen collected from individuals susp ected of COVID-19 by their healthcare provider.This test has not been Food and Drug Administration (FDA) cleared or approved. This is a modified version of an approved Emergency Use Authorization (EUA) and is in the process of review by the FDA. Once authorized by the FDA, the issued EUA will be effective until the declaration that circumstances exist justifying the authorization of the emergency use of in vitro diagnostic tests for detection and/or diagnosis of COVID-19 is terminated under Section 564(b)(2) of the Act or the EUA is revoked under Section 564(g) of the Act.Fact Sheet for Healthcare Providers:https://www.L[employer] [place]/sites/default/files/product/documents/Fact_Shee r_MI_Efbwuqfln_Cdsn_CSBH-AwW-9.pdfFact Sheet for Healthcare Patients:https://www.Lamsa.[employer] [place]/sites/default/files/product/ documents/Ohaz_Tutpv_Phqcdaho_Qoyi_HQTD-WkM-1.pdfPerforming Laboratory:[facility], [place] [address]LEG, CHEST, 1 VIEW, NON [id number] 08:00:00Reason for exam:->post-opShould this be performed at the bedside?->Yes [facility] : 1945 Sex: FFINAL REPORT RAD, CHEST, 1 VIEW, NON DEPT INDICATION: post-op COMPARISON: Prior day's exam FINDINGS: Portable frontal view of the chest. IMPRESSION: Support Lines: Port-A-Cath tip overlies the atriocaval junction. Left pleural catheter. Right chest tube.Lungs and pleura: Trace left effusion and retrocardiac airspace disease, unchanged No pneumothorax.Heart and mediasti num: Stable contours. Stable surgical changes.Additional findings: None. Signed: Bianca Harrisepелена Verified Date/Time: 07/29/2020 08:00:16 Reading Location: [facility] Radiology Reading Room BASIC METABOLIC [id number] 04:35:00 Test Item Value Reference Range Interpretation Comments SODIUM (BEAKER) 133 meq/L 136-145 L (test code = 381) POTASSIUM (BEAKER) 4.0 meq/L 3.5-5.1 (test code = 379) CHLORIDE (BEAKER) 105 meq/L 98-107 (test code = 382) CO2 (BEAKER) (test 24 meq/L 22-29 code = 355) BLOOD UREA NITROGEN 29 mg/dL 7-21 H (BEAKER) (test code = 354) CREATININE (BEAKER) 0.56 mg/dL 0.57-1.25 L (test code = 358) GLUCOSE RANDOM 110 mg/dL 70-105 H (BEAKER) (test code = 652) CALCIUM (BEAKER) 7.5 mg/dL 8.4-10.2 L (test code = 697) EGFR (BEAKER) (test 128 mL/min/1.73 ESTIM ATED GFR IS code = 1092) sq m NOT ACCURATE CREATININE CLEARANCE IN PREDICTING GLOMERULAR FILTRATION RATE . ESTIMATED GFR I S NOT APPLICABLE FOR DIALYSIS PATIEN TS. Printing Sales Representative ID - DAYANARA [id number] 04:33:00 Test Item Value Reference Range Interpretation Comments MAGNESIUM (BEAKER) (test code = 2.2 mg/dL 1.6-2.6 627) Printing Sales Representative ID - DAYANARA [id number] 04:33:00 Test Item Value Reference Range Interpretation Comments PHOSPHORUS (BEAKER) (test code = 2.5 mg/dL 2.3-4.7 604) Printing Sales Representative ID - DAYANARA MHEPATIC FUNCTION [id number] 04:33:00 Test Item Value Reference Range Interpretation Comments TOTAL PROTEIN (BEAKER) (test code = 4.6 gm/dL 6.0-8.3 L 770) ALBUMIN (BEAKER) (test code = 1145) 2.0 g/dL 3.5-5.0 L BILIRUBIN TOTAL (BEAKER) (test code 2.5 mg/dL 0.2-1.2 H = 377) BILIRUBIN DIRECT (BEAKER) (test 2.0 mg/dL 0.1-0.5 H code = 706) ALKALINE PHOSPHATASE (BEAKER) (test 443 U/L 40-150 H code = 346) AST (SGOT) (BEAKER) (test code = 58 U/L 5-34 H 353) ALT (SGPT) (BEAKER) (test code = 47 U/L 6-55 347) Printing Sales Representative ID - DAYANARA [id number] 03:04:00 Test Item Value Reference Range Interpretation Comments PARTIAL THROMBOPLASTIN TIME 33.2 seconds 22.5-36.0 (BEAKER) (test code = 760) PROTHROMBIN TIME/[id number] 03:03:00 Test Item Value Reference Range Interpretation Comments PROTIME (BEAKER) 15.0 seconds 11.9-14.2 H (test code = 759) INR (BEAKER) (test 1.20 See_Comment [Automat ed message] code = 370) The system [employer] generated this result transmitted ref erence range: <=5.90. The reference range was not used to int erpret this result as normal/abnormal . RECOMMENDED COUMADIN/WARFARIN INR THERAPY RANGESSTANDARD DOSE: 2.0 - 3.0 Includes: PROPHYLAXIS forvenous thrombosis, systemic embolization; TREATMENT for venous thrombosis and/or pulmonary embolus.HIGH RISK: Target INR is 2.5-3.5 for patients with mechanical heart valves.CBC (HEMOGRAM ONLY)2020-07-29 02:50:00 Test Item Value Reference Range Interpretation Comments WHITE BLOOD CELL COUNT (BEAKER) 11.9 K/ L 3.5-10.5 H (test code = 775) RED BLOOD CELL COUNT (BEAKER) 2.94 M/ L 3.93-5.22 L (test code = 761) HEMOGLOBIN (BEAKER) (test code = 8.5 GM/DL 11.2-15.7 L 410) HEMATOCRIT (BEAKER) (test code = 26.3 % 34.1-44.9 L 411) MEAN CORPUSCULAR VOLUME (BEAKER) 89.5 fL 79.4-94.8 (test code = 753) MEAN CORPUSCULAR HEMOGLOBIN 28.9 pg 25.6-32.2 (BEAKER) (test code = 751) MEAN CORPUSCULAR HEMOGLOBIN CONC 32.3 GM/DL 32.2-35.5 (BEAKER) (test code = 752) RED CELL DISTRIBUTION WIDTH 17.3 % 11.7-14.4 H (BEAKER) (test code = 412) PLATELET COUNT (BEAKER) (test code 96 K/CU MM 150-450 L = 756) MEAN PLATELET VOLUME (BEAKER) 11.6 fL 9.4-12.3 (test code = 754) NUCLEATED RED BLOOD CELLS (BEAKER) 0 /100 WBC 0-0 (test code = 413) POCT-GLUCOSE [id number] 17:58:00 Test Item Value Reference Range Interpretation Comments POC-GLUCOSE METER 106 mg/dL 70-110 : TESTED A T [facility] [address] (BEAKER) (test code = [place] [place], 1538) [address]: Printing Sales Representative/Techni nael ID = [id number] for TANNER GARCIA 2D Echo W/Doppler(CW/PW/Color)2020-07-28 15:18:02Ejection FractionSLEH ECHO HEARTLAB MKCKESSON CPACSInterface, External Ris In - 07/28/2020 3:18 PM C DTTransthoracic Echocardiography Report (TTE) Demographics Patient Name MELINDA CHAKRABORTY Date ofStudy 07/28/2020 Gender Female Visit Number [id number] Race Black Room Number 2C26 Number Date of 1945 Referring Physician Roni Blum Age 74 year(s) 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 Normal LV size and function. All of the LV segments are mildly hypokinetic. LVEF is mildly reduced (45-49%) 2. Grade 1 diastolic dysfunction (impaired relaxation and low-normal LA pressure) 3. Aortic root size (Sinus of Valsalva diameter) is mildly dilated. 3.9 cm. Trileaflet aortic valve with mild aortic regurgitation. 4. A small pericardial effusion is present . 5. There is low normal systolic function of the right ventricle. Normal RV size. Previous Study In comparison with the prior exam 07/26/20 the following changes are noted: the LV systolic function has improved. Signature Findings Left Ventricle The left ventricle is chamber size (by vol index) is normal (female - LVED vol - 29-61ml/m2). Mild concentric LV hypertrophy. All of the LV segments are mildly hypokinetic . Global LV systolic function mildly reduced . LVEF by Grey's method of disk assessment is mildly reduced (45-49%) . Grade 1 diastolic dysfunction (impaired relaxa tion and low-normal LA pressure). Left Atrium LA is well visualized. LA size is severely enlarged (>48 ml/m2) . Right Ventricle There is probable low normal systolic function of the right ventricle. Normal RV size. Right Atrium RA size is dilated. Aortic Valve Mild AoV cusp thickening. No evidence of aortic stenosis. Mild aortic regurgitation. Mitral Valve Mild MV leaflet thickening. Mild mitral annular calcification. Trace mitral regurgitation. Tricuspid Valve TV structure is normal. Mild tricuspid regurgitation. Estimated peak systolic PA pressure is 27 mmHg + RAP (RAP cannot be determined due to inadequate visualization of IVC). Pulmonic Valve Mild PV leaflet thickening. No evidence of pulmonary regurgitation. Aorta Aortic root siz e (Sinus of Valsalva diameter) is mildly dilated. 3.9 cm Proximal ascending aorta size normal . 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 Possible re-dissection of AAo/Ao Arch present by 2D Echo images; Unable to clearly determine due to poor interrogation of Aorta. Pericardium A small pericardial effusion is present . Pericardial tamponade physiology is not evident . IVC/SVC/PA/PV/Pleural The inferior vena cava is not visualized. [facility] Circ Support Intra Aortic Balloon Pump (IABP) is present. Chambers/Structures Left Atrium LA Volume: 101.31 ml LA Area: 14.77 cm^2 LA Vol. Index: 53 ml/m^2 Left Ventricle LVIDd: 4.53 cm LVEDV:93.73 ml LV Se ptum Diastolic: 1.19 cm LV PW Diastolic: 1.27 cm LVEDV Grey's:99.07 ml LV Length: 8.33 cm LVESV Grey's:54.41 ml LVEF Grey's: 45.1 % LVEDVI: 52 ml/m^2 LVESVI: 28 ml/m^2 LVOT Diameter: 2.07 cm Right Ventricle RVOT VTI: 11.23 cm Aorta Ao Root S of Ioana.: 3.91 cm Ascending Aorta: 3.45 cm Doppl er/Quantitative Measurements Mitral Valve MV Peak E-Wave: 0.55 m/s MV Peak A-Wave: 0.54 m/s E/A Ratio: 1.02 Peak Gradient: 1.2 mmHg Deceleration Time: 121.5 msec MV Andrea. Peak: Tissue Doppler E' Lateral Velocity: 0.12 m/s E/E': 4.63 Aortic Valve Peak Velocity: 0.98 m/s Mean Velocity: 0.62 m/s Peak Gradient: 3.85 mmHg Mean Gradient: 1.82 mmHg AV Area (continuity): 4.69 cm^2 AV VTI: 11.93 cm AV DVI: 1.39 LVOT Peak Velocity: 1.01 m/s Peak Gradient: 4.06 mmHg Mean Velocity: 0.66 m/s Mean Gradient: 2.02 mmHg LVOT Diameter: 2.07 cm LVOT VTI: 16.62 cm LVOT Area: 3.37 cm^2 LVOT SV:55.9 ml LVOT CO: 4.53 l/min LVOT CI: 2.37 l/min/m^2 Tricuspid Valve TR Velocity: 2.61 m/s TR Gradient: 27.25 mmHgEmanate Health/Queen of the Valley HospitalManual [id number] 12:35:00 Test Item Value Reference Range Interpretation Comments % Neutros (test code 91 % = 2816) % Lymphs (test code = 1 % 2817) % Monos (test code = 1 % 2818) % Eos (test code = 1 % 2819) % Bands (test code = 6 % 0-10 2826) # Neutros (test code 7.64 K/ul 1.56-6.13 H = 2830) # Lymphs (test code = 0.08 K/ul 1.18-3.74 L 2831) # Monos (test code = 0.08 K/uL 0.24-0.36 L 2832) # Eos (test code = 0.08 K/uL 0.04-0.36 2834) # Bands (test code = 0.50 K/uL 0-0.8 2840) Total Counted (test 100 code = 1351) nRBC (manual) (test 1 See_Comment H [Automa horacio code = 1353) message] The system which generated this result transmitted reference range : 0 - 0 /100 WBC. The reference range was not used to interpr et this result as normal/abnormal . WBC Morphology (test Normal code = 487) Giant Platelet (test Present code = 313) Polychromasia (test 1+ few code = 478) Poikilocytes (test 1+ few code = 966) Normal Cells (test code 1+ few = 474) Platelet Conc (test Decreased code = 3438) ANABELA (test code = ANABELA) Printing Sales Representative ID - Ofelia Lloyd comments: Slide comments: Lab Interpretation Abnormal (test code = 27022-2) [facility] W/PLT COUNT & AUTO [id number] 12:35:00 Test Item Value Reference Range Interpretation Comments WHITE BLOOD CELL COUNT (BEAKER) 8.4 K/ L 3.5-10.5 (test code = 775) RED BLOOD CELL COUNT (BEAKER) 3.21 M/ L 3.93-5.22 L (test code = 761) HEMOGLOBIN (BEAKER) (test code = 9.5 GM/DL 11.2-15.7 L 410) HEMATOCRIT (BEAKER) (test code = 29.3 % 34.1-44.9 L 411) MEAN CORPUSCULAR VOLUME (BEAKER) 91.3 fL 79.4-94.8 (test code = 753) MEAN CORPUSCULAR HEMOGLOBIN 29.6 pg 25.6-32.2 (BEAKER) (test code = 751) MEAN CORPUSCULAR HEMOGLOBIN CONC 32.4 GM/DL 32.2-35.5 (BEAKER) (test code = 752) RED CELL DISTRIBUTION WIDTH 17.3 % 11.7-14.4 H (BEAKER) (test code = 412) PLATELET COUNT (BEAKER) (test 131 K/CU MM 150-450 L code = 756) MEAN PLATELET VOLUME (BEAKER) 10.3 fL 9.4-12.3 (test code = 754) NUCLEATED RED BLOOD CELLS 0 /100 WBC 0-0 (BEAKER) (test code = 413) (CELLAVISION MANUAL DIFF)2020-07-28 12:35:00 Test Item Value Reference Range Interpretation Comments NEUTROPHILS - REL 91 % (CELLAVISION)(BEAKER) (test code = 2816) LYMPHOCYTES - REL 1 % (CELLAVISION)(BEAKER) (test code = 2817) MONOCYTES - REL 1 % (CELLAVISION)(BEAKER) (test code = 2818) EOSINOPHILS - REL 1 % (CELLAVISION)(BEAKER) (test code = 2819) BANDS - REL (CELLAVISION)(BEAKER) 6 % 0-10 (test code = 2826) NEUTROPHILS - ABS 7.64 K/ul 1.56-6.13 H (CELLAVISION)(BEAKER) (test code = 2830) LYMPHOCYTES - ABS 0.08 K/ul 1.18-3.74 L (CELLAVISION)(BEAKER) (test code = 2831) MONOCYTES - ABS 0.08 K/uL 0.24-0.36 L (CELLAVISION)(BEAKER) (test code = 2832) EOSINOPHILS - ABS 0.08 K/uL 0.04-0.36 (CELLAVISION)(BEAKER) (test code = 2834) BANDS - ABS (CELLAVISION)(BEAKER) 0.50 K/uL 0.00-0.80 (test code = 2840) TOTAL COUNTED (BEAKER) (test code 100 = 1351) MANUAL NRBC PER 100 CELLS (BEAKER) 1 /100 WBC 0-0 H (test code = 1353) WBC MORPHOLOGY (BEAKER) (test code Normal = 487) GIANT PLATELETS (BEAKER) (test Present code = 313) POLYCHROMATOPHILLIC RBCS(BEAKER) 1+ few (test code = 478) POIKILOCYTES (BEAKER) (test code = 1+ few 966) LACIE CELLS (BEAKER) (test code = 1+ few 474) PLATELET CONCENTRATION Decreased (CELLAVISION)(BEAKER) (test code = 3438) Printing Sales Representative ID - Ofelia Lloyd comments: Slide comments:BASIC METABOLIC PANEL 2020-07-28 12:20:00 Test Item Value Reference Range Interpretation Comments SODIUM (BEAKER) 137 meq/L 136-145 (test code = 381) POTASSIUM (BEAKER) 4.0 meq/L 3.5-5.1 (test code = 379) CHLORIDE (BEAKER) 105 meq/L 98-107 (test code = 382) CO2 (BEAKER) (test 26 meq/L 22-29 code = 355) BLOOD UREA NITROGEN 26 mg/dL 7-21 H (BEAKER) (test code = 354) CREATININE (BEAKER) 0.59 mg/dL 0.57-1.25 (test code = 358) GLUCOSE RANDOM 118 mg/dL 70-105 H (BEAKER) (test code = 652) CALCIUM (BEAKER) 7.6 mg/dL 8.4-10.2 L (test code = 697) EGFR (BEAKER) (test 120 mL/min/1.73 ESTIM ATED GFR IS code = 1092) sq m NOT ACCURATE CREATININE CLEARANCE IN PREDICTING GLOMERULAR FILTRATION RATE . ESTIMATED GFR I S NOT APPLICABLE FOR DIALYSIS PATIEN TS. Printing Sales Representative ID - DAYANARA Lorenzoecimen slightly [id number] 12:16:00 Test Item Value Reference Range Interpretation Comments MAGNESIUM (BEAKER) (test code = 2.2 mg/dL 1.6-2.6 627) Printing Sales Representative ID - DAYANARA [id number] 12:16:00 Test Item Value Reference Range Interpretation Comments PHOSPHORUS (BEAKER) (test code = 2.5 mg/dL 2.3-4.7 604) Printing Sales Representative ID - DAYANARA MLactic Acid, [id number] 12:12:00 Test Item Value Reference Range Interpretation Comments Lactate, Art (test code = 1.8 mmol/L 0.5-2.2 2874) ANABELA (test code = ANABELA) Printing Sales Representative ID - DAYANARA Dorantesimecedric slightly icteric Lab Interpretation (test Normal code = 68444-4) [facility] HospitalLACTIC ACID, [id number] 12:12:00 Test Item Value Reference Range Interpretation Comments LACTATE BLOOD ARTERIAL (2) 1.8 mmol/L 0.5-2.2 (BEAKER) (test code = 2874) Printing Sales Representative ID - DAYANARA Dorantesimecedric slightly ictericPOCT-GLUCOSE [id number] 10:25:00 Test Item Value Reference Range Interpretation Comments POC-GLUCOSE METER 105 mg/dL 70-110 : TESTED A T [facility] [address] (BEAKER) (test code = [address], 1538) [address]: Printing Sales Representative/Techni nael ID = [id number] for JA COB, TANNER VANCOMYCIN LEVEL, [id number] 09:42:00 Test Item Value Reference Range Interpretation Comments VANCOMYCIN TROUGH (BEAKER) (test 7.8 ug/mL 10.0-20.0 L code = 522) Printing Sales Representative ID - DAYANARA MUrine [id number] 08:59:00 Test Item Value Reference Range Interpretation Comments Result (test code = 6463-4) No growth [facility] HospitalRAD, CHEST, 1 VIEW, NON [id number] 04:28:00 Reason for exam:->post-opShould this be performed at the bedside?->Yes [facility] : 1945 Sex: FFINAL REPORT CLINICAL INDICATION: Postop Comparison: 07/27/2020 The patient is rotated to the right. The cardiomediastinal contours are grossly stable. A left-sided pleural collection has decreased after chest tube placement. Lung volumes remain low. Central pulmonary vascular prominence and left greater than right parenchymal opacities are unchanged. There is no pneumothorax. The radiopaque tip of an IABP is approximately 8.5 cm caudal to the superior margin of the aortic arch. Support lines are otherwise stable. Signed: Janeth Smith MDReport Verified Date/Time: 07/28/2020 04:28:22 BASIC METABOLIC [id number] 03:53:00 Test Item Value Reference Range Interpretation Comments SODIUM (BEAKER) 134 meq/L 136-145 L (test code = 381) POTASSIUM (BEAKER) 3.6 meq/L 3.5-5.1 (test code = 379) CHLORIDE (BEAKER) 105 meq/L 98-107 (test code = 382) CO2 (BEAKER) (test 21 meq/L 22-29 L code = 355) BLOOD UREA NITROGEN 29 mg/dL 7-21 H (BEAKER) (test code = 354) CREATININE (BEAKER) 0.64 mg/dL 0.57-1.25 (test code = 358) GLUCOSE RANDOM 115 mg/dL 70-105 H (BEAKER) (test code = 652) CALCIUM (BEAKER) 7.4 mg/dL 8.4-10.2 L (test code = 697) EGFR (BEAKER) (test 110 mL/min/1.73 ESTIM ATED GFR IS code = 1092) sq m NOT ACCURATE CREATININE CLEARANCE IN PREDICTING GLOMERULAR FILTRATION RATE . ESTIMATED GFR I S NOT APPLICABLE FOR DIALYSIS PATIEN TS. Printing Sales Representative ID - BSSpecimen slightly [id number] 03:28:00 Test Item Value Reference Range Interpretation Comments MAGNESIUM (BEAKER) (test code = 1.9 mg/dL 1.6-2.6 627) Printing Sales Representative ID - [id number] 03:28:00 Test Item Value Reference Range Interpretation Comments PHOSPHORUS (BEAKER) (test code = 2.8 mg/dL 2.3-4.7 604) Printing Sales Representative ID - BSHEPATIC FUNCTION [id number] 03:28:00 Test Item Value Reference Range Interpretation Comments TOTAL PROTEIN (BEAKER) (test code = 4.2 gm/dL 6.0-8.3 L 770) ALBUMIN (BEAKER) (test code = 1145) 2.0 g/dL 3.5-5.0 L BILIRUBIN TOTAL (BEAKER) (test code 2.9 mg/dL 0.2-1.2 H = 377) BILIRUBIN DIRECT (BEAKER) (test 2.3 mg/dL 0.1-0.5 H code = 706) ALKALINE PHOSPHATASE (BEAKER) (test 374 U/L 40-150 H code = 346) AST (SGOT) (BEAKER) (test code = 109 U/L 5-34 H 353) ALT (SGPT) (BEAKER) (test code = 54 U/L 6-55 347) Printing Sales Representative ID - BSSpecimen slightly [id number] 03:25:00 Test Item Value Reference Range Interpretation Comments PARTIAL THROMBOPLASTIN TIME 39.8 seconds 22.5-36.0 H (BEAKER) (test code = 760) PROTHROMBIN TIME/[id number] 03:24:00 Test Item Value Reference Range Interpretation Comments PROTIME (BEAKER) 16.0 seconds 11.9-14.2 H (test code = 759) INR (BEAKER) (test 1.30 See_Comment [Automat ed message] code = 370) The system [employer] generated this result transmitted ref erence range: <=5.90. The reference range was not used to int erpret this result as normal/abnormal . RECOMMENDED COUMADIN/WARFARIN INR THERAPY RANGESSTANDARD DOSE: 2.0 - 3.0 Includes: PROPHYLAXIS forvenous thrombosis, systemic embolization; TREATMENT for venous thrombosis and/or pulmonary embolus.HIGH RISK: Target INR is 2.5-3.5 for patients with mechanical heart valves.Oxygen saturation, [id number] 03:05:00 Test Item Value Reference Range Interpretation Comments O2 Saturation (Measured) (test code = 84.5 % 45893-1) [facility] HospitalOXYGEN SATURATION, [id number] 03:05:00 Test Item Value Reference Range Interpretation Comments O2 SATURATION (MEASURED) (BEAKER) 84.5 % (test code = 1455) CBC (HEMOGRAM ONLY)2020-07-28 03:02:00 Test Item Value Reference Range Interpretation Comments WHITE BLOOD CELL COUNT (BEAKER) 10.7 K/ L 3.5-10.5 H (test code = 775) RED BLOOD CELL COUNT (BEAKER) 2.89 M/ L 3.93-5.22 L (test code = 761) HEMOGLOBIN (BEAKER) (test code = 8.4 GM/DL 11.2-15.7 L 410) HEMATOCRIT (BEAKER) (test code = 25.6 % 34.1-44.9 L 411) MEAN CORPUSCULAR VOLUME (BEAKER) 88.6 fL 79.4-94.8 (test code = 753) MEAN CORPUSCULAR HEMOGLOBIN 29.1 pg 25.6-32.2 (BEAKER) (test code = 751) MEAN CORPUSCULAR HEMOGLOBIN CONC 32.8 GM/DL 32.2-35.5 (BEAKER) (test code = 752) RED CELL DISTRIBUTION WIDTH 17.5 % 11.7-14.4 H (BEAKER) (test code = 412) PLATELET COUNT (BEAKER) (test code 89 K/CU MM 150-450 L = 756) MEAN PLATELET VOLUME (BEAKER) 10.5 fL 9.4-12.3 (test code = 754) NUCLEATED RED BLOOD CELLS (BEAKER) 0 /100 WBC 0-0 (test code = 413) Blood Culture Panel([place])2020-07-28 02:32:00 Test Item Value Reference Interpretation Comments Range LISTERIA Not detected Not detected MONOCYTOGENES (test code = 21083-7) STAPHYLOCOCCUS (test Not detected Not detected code = 03154-7) STAPHYLOCOCCUS AUREUS Not detected Not detected (test code = 80566-2) Streptococcus (test Not detected Not detected code = 29547-3) STREPTOCOCCUS Not detected Not detected AGALACTIAE (GROUP B) (test code = 16268-0) STREPTOCOCCUS Not detected Not detected PNEUMONIAE (test code = 45110-3) Streptococcus Not detected Not detected pyogenes (Group A) (test code = 04132-9) ACINETOBACTER Not detected Not detected BAUMANNII (test code = 36791-6) HAEMOPHILUS Not detected Not detected INFLUENZAE (test code = 94688-3) NEISSERIA Not detected Not detected MENINGITIDIS (test code = 56841-0) ENTEROBACTERIACEAE Detected Not detected A (test code = 42221-7) ENTEROBACTER CLOACOE Not detected Not detected COMPLEX (test code = 02644-1) KLEBSIELLA OXYTOCA Detected Not detected A Klebsiell a oxytocaKPC (test code = 75449-9) not de tected (a carbapenamase gene)First-line therapy: Merope nem. De-escalate bas ed on susceptibilitie sThis test does not e valuate for ESBL Refere nce Range: Not Dete cted KLEBSIELLA PNEUMONIAE Not detected Not detected (test code = 83275-2) PROTEUS (test code = Not detected Not detected 20807-6) SERRATIA MARCESCENS Not detected Not detected (test code = 00644-8) LEANNA ALBICANS Not detected Not detected (test code = 77541-9) LEANNA GLABRATA Not detected Not detected (test code = 84008-7) LEANNA KRUSEI (test Not detected Not detected code = 24058-7) LEANNA PARAPSILOSIS Not detected Not detected (test code = 08694-7) LEANNA TROPICALIS Not detected Not detected (test code = 80170-8) ESCHERICHIA COLI Not detected Not detected (test code = 27992-7) METHICILLIN-RESISTANC E GENE (test code = 45270-6) VANCOMYCIN-RESISTANCE GENE (test code = 26094-8) CARBAPENEM-RESISTANCE Not detected Not detected Note: Antimicrobial GENE (test code = resistance can occur 44870-7) via multiple mechanisms. A N ot Detected result for the Clicks for a CauseArray antimicrobial resistance gene assays does not indica te antimicrobial susceptibility. Subculturing is required for sp ecies identification and susceptibility testing of isolates.WAR MAXIME: A Not Detected re sult for the KPC gen e does not indicate susceptibility to carbapenems. Gr am negative bacter ia can be resistant to carbapenems by mechanisms othe r than carrying the KP C gene. ENTEROCOCCUS (test Not detected Not detected code = 09766-7) PSEUDOMONAS Not detected Not detected AERUGINOSA (test code = 60822-7) ANABELA (test code = ANABELA) Other bacteria and resistance markers not targeted by this PCR panel cannot be excluded; therefore clinical correlation and follow up of serology, culture results, and other molecular studies is required. The results are not intended to be used as the sole means for clinical diagnosis or patient management decisions. This sample was tested at the [facility] Molecular Diagnostics Laboratory using the LuciduxArray Blood Culture ID Panel. It is FDA cleared and has been verified and approved by the [facility] Molecular Diagnostics Laboratory for clinical use. This laboratory is CLIA-certified and [employer] (CAP)-accredite d to perform high complexity testing. Lab Interpretation Abnormal (test code = 17268-0) [facility] IDENTIFICATION [id number] 02:32:00 Test Item Value Reference Interpretation Comments Range LISTERIA MONOCYTOGENES Not detected Not detected (test code = 0196613) STAPHYLOCOCCUS (test Not detected Not detected code = 8826015) STAPHYLOCOCCUS AUREUS Not detected Not detected (test code = 0840512) STREPTOCOCCUS (test Not detected Not detected code = 6035048) STREPTOCOCCUS Not detected Not detected AGALACTIAE (GROUP B) (test code = 8431171) STREPTOCOCCUS Not detected Not detected PNEUMONIAE (test code = 4419962) STREPTOCOCCUS PYOGENES Not detected Not detected (GROUP A) (test code = 3724525) ACINETOBACTER Not detected Not detected BAUMANNII (test code = 9340787) HAEMOPHILUS INFLUENZAE Not detected Not detected (test code = 0513395) NEISSERIA MENINGITIDIS Not detected Not detected (test code = 7387217) ENTEROBACTERIACEAE Detected Not detected A (test code = 0988316) ENTEROBACTER CLOACOE Not detected Not detected COMPLEX (test code = 2611988) KLEBSIELLA OXYTOCA Detected Not detected A Klebsiell a oxytocaKPC (test code = 9179896) not de tected (a carbapenamase gene)First-line therapy: Merope nem. De-escalate bas ed on susceptibilitie sThis test does not e valuate for ESBL Refere nce Range: Not Dete cted KLEBSIELLA PNEUMONIAE Not detected Not detected (test code = 1650) PROTEUS (test code = Not detected Not detected 3150646) SERRATIA MARCESCENS Not detected Not detected (test code = 6638326) LEANNA ALBICANS (test Not detected Not detected code = 3125532) LEANNA GLABRATA (test Not detected Not detected code = 9823716) LEANNA KRUSEI (test Not detected Not detected code = 0695576) LEANNA PARAPSILOSIS Not detected Not detected (test code = 6394844) LEANNA TROPICALIS Not detected Not detected (test code = 9952090) ESCHERICHIA COLI (test Not detected Not detected code = 4653815) METHICILLIN-RESISTANCE GENE (test code = 5268801) VANCOMYCIN-RESISTANCE GENE (test code = 4807808) CARBAPENEM-RESISTANCE Not detected Not detected Note: Antimicrobial GENE (test code = resistance can occur 2508136) via multiple mechanisms. A N ot Detected result for the Clicks for a CauseArray antim icrobial resistance gene assays does not indica te antimicrobial susceptibility. Subculturing is required for sp ecies identification and susceptibility testing of isolates.WAR MAXIME: A Not Detected re sult for the KPC gene do es not indicate suscep tibility to carbapenems. Gram negative bacter ia can be resistant to carbapenems by mechanisms othe r than carrying the KP C gene. ENTEROCOCCUS-BEAKER Not detected Not detected (test code = 3418110) PSEUDOMONAS Not detected Not detected AERUGINOSA-BEAKER (test code = ) Other bacteria and resistance markers not targeted by this PCR panel cannot be excluded; therefore clinical correlation and follow up of serology, culture results, and other molecular studies is required. The results are not intended to be used as the sole means for clinical diagnosis or patient management decisions. This sample was tested at the [facility] Molecular Diagnostics Laboratory using the LuciduxArray Blood Culture ID Panel. It is FDA cleared and has been verified and approved by the [facility] Molecular Diagnostics Laboratory for clinical use. This laboratory is CLIA-certified and College ofAmerican Pathologists (CAP)-accredited to perform high complexity testing.U/S, DRAINAGE, W/ CATH [id number] 15:42:00Reason for exam:->left pleural effusion, please place pigtail [facility]AK[facility]ABORTY : 1945 Sex: FFINAL REPORT PROCEDURE: Chest tube placement Procedural PersonnelAttending physician(s): Adrianna Evans physician(s): NoneResident physician(s): NoneAdvanced practice provider(s): None Pre-procedure diagnosis: Left pleural effusionPost-procedure diagnosis: SameIndication: Postoperative pleural effusionAdditional clinical history: None Complications: No immediate complications. IMPRESSION: Left-sided 8 Filipino chest tube placement, with 60 mL of serosanguineous fluid immediately aspirated. Tube connected to water seal for further drainage. Plan: Tube to waterseal. Primary team to determine water seal versus suction. PROCEDURE SUMMARY .:- Percutaneous pleural drainage with insertion of indwelling catheter under ultrasound guidance- Additional procedure(s): None PROCEDURE DETAILS: Pre-procedureConsent: Informed consent for the procedure including risks, benefits and alternatives was obtained and time- out was performed prior to the procedure.Preparation: The site was prepared and draped using maximal sterile barrier technique including cutaneous antisepsis. Anesthesia/sedationLevel of anesthesia/sedation: No sedationAnesthesia/sedation administered by: Not applicableTotal intra-service sedation time (minutes): 0 Chest tube placementThe patient was positioned right lateral decubitus oblique. Initial imaging was performed. Local anesthesia was administered. The pleural space was accessed using trocar technique and a drainage catheter was placed. Position of the drainage catheter within the pleural space was confirmed.- Initial imaging findings: Moderate left pleural effusion- Drainage catheter placed: 8 Filipino argon- External catheter securement: Non-absorbable suture- Post-drainage imaging findings: Not performed- Additional findings: None ContrastContrast agent: NoneContrast volume (mL): 0 Radiation DoseNone. Ultrasound only Additional DetailsAdditional description of procedure: NoneEq uipment details: NoneEstimated blood loss (mL): Less than 10Standardized report: [email or web address]_v3 AttestationSigner name: Cindy Bowen attest that I was present for the entire procedure. I reviewed the stored images and agree with the report as written. Signed: Cindy Botello MDReport Verified Date/Time:07/27/2020 15:42:30 Reading Location: [place] [address] Angio Body Reading Room US drainage with cath placement 2020-07-27 15:42:00Interface, External Ris In - 07/27/2020 3:44 PM CDTFINAL REPORT PROCEDURE: Chest tube placement Procedural PersonnelAttending physician(s): Cindy Botello MDFell physician(s): NoneResident physician(s): NoneAdvanced practice provider(s): None Pre-procedure diagnosis: Left pleural effusionPost-procedure diagnosis: SameIndication: Postoperative pleural effusionAdditional clinicalhistory: None Complications: No immediate complications. IMPRESSION: Left-sided 8 Filipino chest tube placement, with 60 mL of serosanguineous fluid immediately aspirated. Tube connected to water seal for further drainage. Plan: Tube to waterseal. Primary team to determine water seal versus suction. PROCEDURE SUMMARY .:- Percutaneouspleural drainage with insertion of indwelling catheter under ultrasound guidance- Additional procedure(s): None PROCEDURE DETAILS: Pre- procedureConsent: Informed consent for the procedure including risks, benefits and alternatives was obtained and time-out was performed prior to the procedure.Preparation: The site was prepared and draped using maximal sterile barrier technique including cutaneous antisepsis. Anesthesia/sedationLevel of anesthesia/sedation: No sedationAnesthesia/sedation administeredby: Not applicableTotal intra-service sedation time (minutes): 0 Chest tube placementThe patient waspositioned right lateral decubitus oblique. Initial imaging was performed. Local anesthesia was administered. The pleural space was accessed using trocar technique and a drainage catheter was placed. Position of the drainage catheter within the pleural space was confirmed.- Initial imaging findings: Moderate left pleural effusion- Drainage catheter placed: 8 Filipino argon- External catheter securement: Non-absorbable suture- Post-drainage imaging findings: Not performed- Additional findings: None ContrastContrast agent: NoneContrast volume (mL): 0 Radiation DoseNone. Ultrasound only Additional DetailsAdditional description of procedure: NoneEquipment details: NoneEstimated blood loss (mL): Less than 10Standardized report: SIR_ChestTube_v3 AttestationSigner name: Cindy Bowen attest that I was present for the entire procedure. I reviewed the stored images and agree with the report as written. Signed: Cindy Botello MDReport Verified Date/Time: 07/27/2020 15:42:30 Reading Location: [facility] [address] AngioBody Reading Room [facility] [id number] 14:46:09Ejection [facility] ECHO HEARTLAB MKCKESSON CPACSRight Impression1. Not evaluated due to line placement and dressing.Left Impression1. There is <50% diameter reduction (approximately 15% by 2-D measurement)in the internal carotid artery with a peak velocity of 51/9 cm/sec andheterogeneous plaque.2. There is non-occluding plaque in the external carotid artery.3. The common carotid artery is within normal limits.4. The vertebral artery flow is antegrade and normal.5. The subclavian artery is within normal limits where visualized. Conclusions Summary Left Carotid duplex scanning and color flowimaging were performed. The arteries were adequately visualized. The left internal carotid artery had <50% hemodynamically insignificant stenosis (approximately 15% by 2-D measurement) with heterogeneous plaque. The vertebral artery flow was antegrade and normal. The left subclavian artery was patent with normal flow where visualized. The waveforms were consistent with IABP support. Signature --- Velocities are measured in cm/s ; Diameters are measured in cm Carotid Left Measurem ents+ +----+----+-----+ + + + !Location !PSV!EDV !Angle!%Stenosis 2D!%Stenosis Doppler!Tortuosity !+ +----+----+-----+ + + +!Prox CCA !74.6!18 !60 ! ! ! !+ +----+----+-----+ + + +!Di st CCA !64.6!20.5!60 ! ! ! !+ +----+----+-----+ + + +!Prox ICA !51.1!9.46!60 !14.6% !<50% ! !+ +----+----+-----+ + + +!Di st ICA!52.5!23.1!60 ! ! ! !+ +----+----+-----+-------- ----+ + +!Prox ECA !59 !16.8!60 ! ! ! !+ +----+----+-----+ + + +!Ve rtebral !35.7!14.4!60 ! ! ! !+ +----+----+-----+------- -----+ + +!Prox Subclavian!89.7! !60 ! ! ! !+ +----+----+-----+ + + + - There isantegrade vertebral flow noted on the left side. - Additional Measurements:ICAPSV/CCAPSV 0.81.ICAEDV/CCAEDV 1.28. Interface, External Ris In - 07/27/2020 2:46 PM CDTPV LAB - Carotid Duplex Study Demographics Patient Name MELINDA CHAKRABORTY Date of Study 07/27/2020 Age 74 Visit Number [id number] Gender FemaleAccession Number [id number] Date of 1945 Referring Griselda Casiano Room Number 2C26 Physician Assistant Professor Of Economics Stevenson León Interpreting ALISHA Castrejon Physician ProcedureType of Study: Cerebral: Carotid, CAROTID DOPPLER, UNILATERAL. Indications for Study:Transient upper extremity weakness.Patient Status:STAT.Study Location:Portable.Technical Quality:Adequate visualization.Risk FactorsHistory of Disease+ +----+ --+!Diagnosis !Date!Comments !+ +----+ +!History/Risk ! !S/P IABP insertion 07/26/20, Repair AATA07/21/20, !!Factors: ! !History of Colon CA with liver mets, A-Fib and HTN. !+ -----+----+ +ImpressionsRight Impression1. Not evaluated due to line placement and dressing.Left Impression1. There is <50% diameter reduction (approximately 15% by 2-D measurement)in the internal carotid artery with a peak velocity of 51/9 cm/sec andheterogeneous plaque.2. There is non-occluding plaque in the external carotid artery.3. The commoncarotid artery is within normal limits.4. The vertebral artery flow is antegrade and normal.5. The subclavian artery is within normal limits where visualized. Conclusions Summary Left Carotid duplex scanning and color flow imaging were performed. The arteries were adequately visualized. The left inte rnal carotid artery had <50% hemodynamically insignificant stenosis (approximately 15% by 2-D measurement) with heterogeneous plaque. The vertebral artery flow was antegrade and normal. The left subclavian artery was patent with normal flow where visualized. The waveforms were consistent with IABP support. Signature Velocities are measured in cm/s ; Diameters are measured in cmCarotid Left Measurements+ +----+----+-----+ + +---- -------+!Location !PSV !EDV !Angle!%Stenosis 2D!%Stenosis Doppler!Tortuosity !+ +----+-- --+-----+ + + +!Prox CCA !74.6!18 !60 ! ! ! !+ +----+----+-----+ + + +!Dist CCA !64.6!20.5!60 ! ! ! !+ +----+- ---+-----+ + + +!Prox ICA !51.1!9.46!60 !14.6% !<50% ! !+ +----+----+-----+ + +------ -----+!Dist ICA !52.5!23.1!60 ! ! ! !+ +-- --+----+-----+ + + +!Prox ECA !59 !16.8!60 ! ! ! !+ +----+----+-----+ + +----- ------+!Vertebral !35.7!14.4!60 ! ! ! !+ +- ---+----+-----+ + + +!Prox Subclavian!89.7! !60 ! ! ! !+ +----+----+-----+ + + + - There is antegrade vertebral flow noted on the left side. - Additional Measurements:ICAPSV/CCAPSV 0.81.ICAEDV/CCAEDV 1.28.[facility] Insert Arterial [id number] 14:08:51Kunal Mendoza NP 07/27/2020 2:10 PMInsert Arterial Line Date/Time: 07/27/2020 2:09 PMPerformed by: Kunal Mendoza NPAuthorized by: Kunal Mendoza NP Consent: The procedure was performed in an emergent situation.Site marked: the operative site was markedImaging studies: imaging studies available (Ultrasound)Required items: required blood products, implants, devices, and special equipment availablePatient identity confirmed: arm band, provided demographic data, verbally with patient and hospital-assigned identification numberTime out: Immediately prior to procedure a "time out" was called to verify the correct patient, procedure, equipment, office support and site/side marked as required.Preparation: Patient was prepped and draped in the usual sterile fashio n.Indications: multiple ABGs and hemodynamic monitoringLocation: right radialAnesthesia: local infiltration Anesthesia:Local Anesthetic: lidocaine 1% without epinephrineAnesthetic total: 3 mL Sedation:Patient sedated: no Blake's test normal: yesNeedle gauge: 20Seldinger technique: Seldinger technique u sedNumber of attempts: 1Post-procedure: line sutured and dressing appliedPost- procedure CMS: normalE[facility] HospitalHigh Sensitivity Troponin I ([facility]/Moris Only)2020-07-27 13:08:00 Test Item Value Reference Range Interpretation Comments Troponin I HS 606 pg/ml See_Comment HH [Automated (test code = message] The 13264-6) system which generated this result transmitted reference range : <=17. The reference range was not used to interpret this result as normal/abnormal . ANABELA (test code = Printing Sales Representative ID - ANABELA) ADMINThe MASS SPECTROMETRY SPECIALIST STAT High Sensitivity Troponin-I results should be used in conjunction with other diagnostic information such as ECG, clinical observations and information, and patient symptoms to aid in the diagnosis of [place]. Lab Interpretation Abnormal (test code = 72687-1) [facility] HospitalHIGH [facility]ENSITIVITY TROPONIN [id number] 13:08:00 Test Item Value Reference Range Interpretation Comments HIGH SENSITIVITY 606 pg/ml See_Comment HH [Automated message] TROPONIN I (test code The sy stem which = 0564701) generated this result transmitted ref erence range: <=17. Th e reference range was not used to int erpret this result as normal/abnormal . Printing Sales Representative ID - ADMINThe MASS SPECTROMETRY SPECIALIST STAT High Sensitivity Troponin-I results should be used in conjunction with other diagnostic information such as ECG, clinical observations and information, and patientsymptoms to aid in the diagnosis of [place]. BASIC METABOLIC [id number] 12:33:00 Test Item Value Reference Range Interpretation Comments SODIUM (BEAKER) 134 meq/L 136-145 L (test code = 381) POTASSIUM (BEAKER) 3.8 meq/L 3.5-5.1 (test code = 379) CHLORIDE (BEAKER) 105 meq/L 98-107 (test code = 382) CO2 (BEAKER) (test 24 meq/L 22-29 code = 355) BLOOD UREA NITROGEN 25 mg/dL 7-21 H (BEAKER) (test code = 354) CREATININE (BEAKER) 0.65 mg/dL 0.57-1.25 (test code = 358) GLUCOSE RANDOM 89 mg/dL 70-105 (BEAKER) (test code = 652) CALCIUM (BEAKER) 7.5 mg/dL 8.4-10.2 L (test code = 697) EGFR (BEAKER) (test 108 mL/min/1.73 ESTIM ATED GFR IS code = 1092) sq m NOT ACCURATE CREATININE CLEARANCE IN PREDICTING GLOMERULAR FILTRATION RATE . ESTIMATED GFR I S NOT APPLICABLE FOR DIALYSIS PATIEN TS. Printing Sales Representative ID - ADMINSpecimen slightly ictericLACTIC ACID, [id number] 12:28:00 Test Item Value Reference Range Interpretation Comments LACTATE BLOOD 0.6 mmol/L 0.5-2.2 Specimen sligh tly ARTERIAL (2) (BEAKER) hemoly zed (test code = 2874) Printing Sales Representative ID - ADMINOXYGEN SATURATION, [id number] 12:24:00 Test Item Value Reference Range Interpretation Comments O2 SATURATION (MEASURED) (BEAKER) 87.2 % (test code = 1455) POCT-GLUCOSE [id number] 12:21:00 Test Item Value Reference Range Interpretation Comments POC-GLUCOSE METER 84 mg/dL 70-110 : TESTED A T [facility] 6720 (BEAKER) (test code = [place], 1538) [address]: Printing Sales Representative/Techni nael ID = [id number] for [place] DobbsID CBC (HEMOGRAM ONLY)2020-07-27 12:13:00 Test Item Value Reference Range Interpretation Comments WHITE BLOOD CELL COUNT (BEAKER) 14.5 K/ L 3.5-10.5 H (test code = 775) RED BLOOD CELL COUNT (BEAKER) 2.80 M/ L 3.93-5.22 L (test code = 761) HEMOGLOBIN (BEAKER) (test code = 8.3 GM/DL 11.2-15.7 L 410) HEMATOCRIT (BEAKER) (test code = 25.4 % 34.1-44.9 L 411) MEAN CORPUSCULAR VOLUME (BEAKER) 90.7 fL 79.4-94.8 (test code = 753) MEAN CORPUSCULAR HEMOGLOBIN 29.6 pg 25.6-32.2 (BEAKER) (test code = 751) MEAN CORPUSCULAR HEMOGLOBIN CONC 32.7 GM/DL 32.2-35.5 (BEAKER) (test code = 752) RED CELL DISTRIBUTION WIDTH 17.4 % 11.7-14.4 H (BEAKER) (test code = 412) PLATELET COUNT (BEAKER) (test code 92 K/CU MM 150-450 L = 756) MEAN PLATELET VOLUME (BEAKER) 10.6 fL 9.4-12.3 (test code = 754) NUCLEATED RED BLOOD CELLS (BEAKER) 0 /100 WBC 0-0 (test code = 413) [id number] 10:25:00 Test Item Value Reference Range Interpretation Comments PARTIAL THROMBOPLASTIN TIME 36.9 seconds 22.5-36.0 H (BEAKER) (test code = 760) CT, [id number] 04:54:00S/p ATAA repair for acute type A dissection, history of metastatic colorectal carcinoma with malignant biliary obstruction and external biliary drain in place. Stress cardiomyopathy -> IABP placed day. Hgb down 2g/dL today. RP hematoma?Unlisted Reason for Exam - Click Yes and Enter Reason Below->NoWill this procedure require oral contrast?->No [facility]ENTER[facility] MELINDA CHAKRABORTY : 1945 Sex: FFINAL REPORT CLINICAL HISTORY: Pleural effusion, epigastric pain FINDINGS: Multiple axial images of the chest, abdomen and pelvis were performed without IV contrast. Oralcontrast was not given. This exam was performed according to our departmental dose-optimization program, which includes automated exposure control, adjustment of the mA and/or kV according to patient size and/or use of the iterative reconstruction technique. Comparison: None. Chest: Lung parenchyma pleural spaces: Moderate left and trace right pleural effusion with adjacent left greater than right atelectasis versus pneumonitis. There is a trace right pneumothorax. A right chest tube is in place. Tra cheobronchial tree: No significant findings. Pulmonary vasculature: No significant findings. Cardiaccontours and great vessels: Cardiomegaly. Postoperative appearance of ascending aortic graft repair.Atherosclerotic coronary artery calcification. Mediastinum: A mediastinal drain is in place. There is a trace volume of retrosternal gas and fluid adjacent to the drain. Lymph Nodes: No definite adenopathy in the mediastinum or rio. Skeleton: No acute abnormality. Other:Right IJ chest port and adjacent CVC. Diffuse subcutaneous edema. IVP tip at the superior margin of the descending thoracic aorta. Abdomen and pelvis: Liver: Ill-defined regions of high density within the liver parenchyma, nonspecific but possibly reflecting dystrophic calcification or regions of previous treatment. Gallbladder andbiliary tree: Previous cholecystectomy. Percutaneous internal/external biliary drainage catheter from a left-sided approach. No noncontrast CT evidence of biliary ductal dilatation. Spleen: No significant findings. Adrenal Glands: No significant findings. Kidneys and ureters: No significant findings. Excreted IV contrast in both renal collecting systems and retained contrast in the renal parenchyma, suggesting recent administration. Stomach and Duodenum: No significant findings. Pancreas: No significant findings. Bowel: No bowel obstruction or pneumatosis intestinalis. Short segment of unobstructed bowel within an umbilical hernia. The hernia neck measures 3 cm. Appendix: Nonvisualized Not seen. No local inflammatory changes. Bladder: Partially decompressed with a Pinon catheter. Major vascular structures: Atherosclerotic calcifications. IVC filter in place. Right femoral approach IABP. Reproductive organs: No significant findings. Other: Diffuse subcutaneous edema. Small volume ascites. No free intraperitoneal air. Skeleton: No acute bony abnormality. IMPRESSION: Moderate left and trace right pleural effusions with adjacent atelectasis versus pneumonitis. Trace right pneumothorax. A right chest tube is in place. Cardiomegaly. Expected noncontrast postsurgical appearance of ascending aorta repair. Ill-defined hypodense foci in the liver, possibly reflecting regions of previous embolic treatment. Dystrophic calcification related to calcified metastatic disease is an alternative consideration please correlate with history. Previous cholecystectomy. Percutaneous internal/external biliary drainage catheter in place from a left-sided approach. No noncontrast CT evidence of biliary ductal dilatation. Retained contrast in both kidneys suggesting the possibility of renal dysfunction, dependingon IV contrast ministration timing. Small volume ascites and diffuse subcutaneous edema. IVC filter in place. Nonobstructed small bowel within an umbilical hernia. Signed: Janeth Smith MDReport Verified Date/Time: 07/27/2020 04:54:38 Electronically signed by: JANETH SMITH M.D. on 104:54 AMCT abdomen/pelvis without iv [id number] 04:54:00Interface, External Ris In - 07/27/2020 4:56 AM CDTFINAL REPORT CLINICAL HISTORY: Pleural effusion, epigastric pain FINDINGS: Multiple axial images of the chest, abdomen and pelvis were performed without IV contrast. Oral contrast was not given. This exam was performed according to our departmental dose-optimization program, which includes automated exposure control, adjustment of the mA and/or kV according to patient size and/or use of the iterative reconstruction technique. Comparison: None. Chest: Lung parenchyma pleural spaces: Moderate left and trace right pleural effusion with adjacent left greater than right atelectasis versus pneumonitis. There is a trace right pneumothorax. A right chest tube is in place. Tracheobronchial tree: No significant findings. Pulmonary vasculature: No significant findings. Cardiac contours and great vessels: Cardiomegaly. Postoperativeappearance of ascending aortic graft repair. Atherosclerotic coronary artery calcification. Mediastinum: A mediastinal drain is in place. There is a trace volume of retrosternal gas and fluid adjacent to the drain. Lymph Nodes: No definite adenopathy in the mediastinum or rio. Skeleton: No acute abnormality. Other:Right IJ chest port and adjacent CVC. Diffuse subcutaneous edema. IVP tip at the superior margin of the descending thoracic aorta. Abdomen and pelvis: Liver: Ill-defined regions of high density within the liver parenchyma, nonspecific but possibly reflecting dystrophic calcification or regions of previous treatment. Gallbladder and biliary tree: Previous cholecystectomy. Percutaneous internal/external biliary drainage catheter from a left-sided approach. No noncontrast CT evidence of bi liary ductal dilatation. Spleen: No significant findings. Adrenal Glands: No significant findings. Kidneys and ureters: No significant findings. Excreted IV contrast in both renal collecting systems and retained contrast in the renal parenchyma, suggesting recent administration. Stomach and Duodenum:No significant findings. Pancreas: No significant findings. Bowel: No bowel obstruction or pneumatosis intestinalis. Short segment of unobstructed bowel within an umbilical hernia. The hernia neck measures 3 cm. Appendix: Nonvisualized Not seen. No local inflammatory changes. Bladder: Partially decompressed with a Pinon catheter. Major vascular structures: Atherosclerotic calcifications. IVC filter in place. Right femoral approach IABP. Reproductive organs: No significant findings. Other: Diffuse subcutaneous edema. Small volume ascites. No free intraperitoneal air. Skeleton: No acute bony abnormality. IMPRESSION: Moderate left and trace right pleural effusions with adjacent atelectasis versus pneumonitis. Trace right pneumothorax. A right chest tube is in place. Cardiomegaly. Expected noncontrast postsurgical appearance of ascending aorta repair. Ill-defined hypodense foci in the liver, possibly reflecting regions of previous embolic treatment. Dystrophic calcification related to calcified metastatic disease is an alternative consideration please correlate with history. Previous cholecystectomy. Percutaneous internal/external biliary drainage catheter in place from a left-sided approach. No noncontrast CT evidence of biliary ductal dilatation. Retained contrast in both kidneys suggesting the possibility of renal dysfunction, depending on IV contrast ministration timing. Small volume ascites and diffuse subcutaneous edema. IVC filter in place. Nonobstructed small bowel within an umbilical hernia. 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 Stress cardiomyopathy -> IABP placed yesterday. Hgb down 2g/dL today. Hemothorax?Unlisted Reason for Exam - Click Yes and Enter Reason Below->No [facility]DA CHAK[facility]ORTY : 1945 Sex: FFINAL REPORT CLINICAL HISTORY: Pleural effusion, epigastric pain FINDINGS: Multiple axial images of the chest, abdomen and pelvis were performed without IV contrast. Oralcontrast was not given. This exam was performed according to our departmental dose-optimization program, which includes automated exposure control, adjustment of the mA and/or kV according to patient size and/or use of the iterative reconstruction technique. Comparison: None. Chest: Lung parenchyma pleural spaces: Moderate left and trace right pleural effusion with adjacent left greater than right atelectasis versus pneumonitis. There is a trace right pneumothorax. A right chest tube is in place. Tra cheobronchial tree: No significant findings. Pulmonary vasculature: No significant findings. Cardiaccontours and great vessels: Cardiomegaly. Postoperative appearance of ascending aortic graft repair.Atherosclerotic coronary artery calcification. Mediastinum: A mediastinal drain is in place. There is a trace volume of retrosternal gas and fluid adjacent to the drain. Lymph Nodes: No definite adenopathy in the mediastinum or rio. Skeleton: No acute abnormality. Other:Right IJ chest port and adjacent CVC. Diffuse subcutaneous edema. IVP tip at the superior margin of the descending thoracic aorta. Abdomen and pelvis: Liver: Ill-defined regions of high density within the liver parenchyma, nonspecific but possibly reflecting dystrophic calcification or regions of previous treatment. Gallbladder andbiliary tree: Previous cholecystectomy. Percutaneous internal/external biliary drainage catheter from a left-sided approach. No noncontrast CT evidence of biliary ductal dilatation. Spleen: No significant findings. Adrenal Glands: No significant findings. Kidneys and ureters: No significant findings. Excreted IV contrast in both renal collecting systems and retained contrast in the renal parenchyma, suggesting recent administration. Stomach and Duodenum: No significant findings. Pancreas: No significant findings. Bowel: No bowel obstruction or pneumatosis intestinalis. Short segment of unobstructed bowel within an umbilical hernia. The hernia neck measures 3 cm. Appendix: Nonvisualized Bladder: Partially decompressed with a Pinon catheter. Major vascular structures: Atherosclerotic calcifications. IVC filter in place. Right femoral approach IABP. Reproductive organs: No significant findings. Other: Diffuse subcutaneous edema. Small volume ascites. No free intraperitoneal air. Skeleton: No acute bony abnormality. IMPRESSION: Moderate left and trace right pleural effusions with adjacent atelectasis versus pneumonitis. Trace right pneumothorax. A right chest tube is in place. Cardiomegaly. Expected noncontrast postsurgical appearance of ascending aorta repair. Ill-defined hypodense foci in theliver, possibly reflecting regions of previous embolic treatment. Dystrophic calcification related to calcified metastatic disease is an alternative consideration please correlate with history. Previous cholecystectomy. Percutaneous internal/external biliary drainage catheter in place from a left-sided approach. No noncontrast CT evidence of biliary ductal dilatation. Retained contrast in both kidneys suggesting the possibility of renal dysfunction, depending on IV contrast ministration timing. Small volume ascites and diffuse subcutaneous edema. IVC filter in place. Nonobstructed small bowel within an umbilical hernia. Signed: Janeth Smith MDReport Verified Date/Time: 07/27/2020 04:53:11 E lectronically signed by: JANETH SMITH M.D. on 07/27/2020 04:53 AMCT chest without IV [id number] 04:53:00Interface, External Ris In - 07/27/2020 4:55 AM CDTFINAL REPORT CLINICAL HISTORY: Pleural effusion, epigastric pain FINDINGS: Multiple axial images of the chest, abdomen and pelvis were performed without IV contrast. Oral contrast was not given. This exam was performed according to our departmental dose-optimization program, which includes automated exposure control, adjustment of the mA and/or kV according to patient size and/or use of the iterative reconstruction technique. Comparison: None. Chest: Lung parenchyma pleural spaces: Moderate left and trace right pleural effusion with adjacent left greater than right atelectasis versus pneumonitis. There is a trace right pneumothorax. A right chest tube is in place. Tracheobronchial tree: No significant findings. Pulmonary vasculature: No significant findings. Cardiac contours and great vessels: Cardiomegaly. Postoperativeappearance of ascending aortic graft repair. Atherosclerotic coronary artery calcification. Mediastinum: A mediastinal drain is in place. There is a trace volume of retrosternal gas and fluid adjacent to the drain. Lymph Nodes: No definite adenopathy in the mediastinum or rio. Skeleton: No acute abnormality. Other:Right IJ chest port and adjacent CVC. Diffuse subcutaneous edema. IVP tip at the superior margin of the descending thoracic aorta. Abdomen and pelvis: Liver: Ill-defined regions of high density within the liver parenchyma, nonspecific but possibly reflecting dystrophic calcification or regions of previous treatment. Gallbladder and biliary tree: Previous cholecystectomy. Percutaneous internal/external biliary drainage catheter from a left-sided approach. No noncontrast CT evidence of biliary ductal dilatation. Spleen: No significant findings. Adrenal Glands: No significant findings. Ki dneys and ureters: No significant findings. Excreted IV contrast in both renal collecting systems and retained contrast in the renal parenchyma, suggesting recent administration. Stomach and Duodenum:No significant findings. Pancreas: No significant findings. Bowel: No bowel obstruction or pneumatosis intestinalis. Short segment of unobstructed bowel within an umbilical hernia. The hernia neck measures 3 cm. Appendix: Nonvisualized Bladder: Partially decompressed with a Pinon catheter. Major vascular structures: Atherosclerotic calcifications. IVC filter in place. Right femoral approach IABP. Reproductive organs: No significant findings. Other: Diffuse subcutaneous edema. Small volume ascites. No free intraperitoneal air. Skeleton: No acute bony abnormality. IMPRESSION: Moderate left and trace right pleural effusions with adjacent atelectasis versus pneumonitis. Trace right pneumothorax. A right chest tube is in place. Cardiomegaly. Expected noncontrast postsurgical appearance of ascending aorta repair. Ill-defined hypodense foci in the liver, possibly reflecting regions of previous embolic treatment. Dystrophic calcification related to calcified metastatic disease is an alternative consideration please correlate with history. Previous cholecystectomy. Percutaneous internal/external biliary drainage catheter in place from a left-sided approach. No noncontrast CT evidence of biliary ductaldilatation. Retained contrast in both kidneys suggesting the possibility of renal dysfunction, depending on IV contrast ministration timing. Small volume ascites and diffuse subcutaneous edema. IVC filter in place. Nonobstructed small bowel within an umbilical hernia. Signed: Janeth Smith MDReport Verified Date/Time: 07/27/2020 04:53:11 [facility] CampusHIGH SENSITIVITY TROPONIN [id number] 04:33:00 Test Item Value Reference Range Interpretation Comments HIGH SENSITIVITY 699 pg/ml See_Comment HH [Automated message] TROPONIN I (test code The sy stem which = [id number]) generated this result transmitted ref erence range: <=17. Th e reference range was not used to int erpret this result as normal/abnormal . Printing Sales Representative ID - DAYANARA MThe MASS SPECTROMETRY SPECIALIST STAT High Sensitivity Troponin-I results should be used in conjunction with other diagnostic information such as ECG, clinical observations and information, and patient symptoms to aid in the diagnosis of [place].BASIC METABOLIC [id number] 03:54:00 Test Item Value Reference Range Interpretation Comments SODIUM (BEAKER) 137 meq/L 136-145 (test code = 381) POTASSIUM (BEAKER) 4.4 meq/L 3.5-5.1 Specimen slightly (test code = 379) hemolyzed CHLORIDE (BEAKER) 105 meq/L 98-107 (test code = 382) CO2 (BEAKER) (test 23 meq/L 22-29 code = 355) BLOOD UREA NITROGEN 25 mg/dL 7-21 H (BEAKER) (test code = 354) CREATININE (BEAKER) 0.63 mg/dL 0.57-1.25 Specimen slightly (test code = 358) hemolyzed GLUCOSE RANDOM 84 mg/dL 70-105 (BEAKER) (test code = 652) CALCIUM (BEAKER) 7.4 mg/dL 8.4-10.2 L (test code = 697) EGFR (BEAKER) (test 112 mL/min/1.73 ESTIM ATED GFR IS code = 1092) sq m NOT ACCURATE CREATININE CLEARANCE IN PREDICTING GLOMERULAR FILTRATION RATE . ESTIMATED GFR I S NOT APPLICABLE FOR DIALYSIS PATIEN TS. Printing Sales Representative ID - DAYANARA MSpecimen slightly [id number] 03:49:00 Test Item Value Reference Range Interpretation Comments MAGNESIUM (BEAKER) 1.9 mg/dL 1.6-2.6 Specimen slightly (test code = 627) hemolyzed Printing Sales Representative ID - DAYANARA [id number] 03:49:00 Test Item Value Reference Range Interpretation Comments PHOSPHORUS (BEAKER) 3.2 mg/dL 2.3-4.7 Specimen slightly (test code = 604) hemolyzed Printing Sales Representative ID - DAYANARA MHEPATIC FUNCTION [id number] 03:49:00 Test Item Value Reference Range Interpretation Comments TOTAL PROTEIN (BEAKER) 4.6 gm/dL 6.0-8.3 L Speci men slightly (test code = 770) hemolyzed ALBUMIN (BEAKER) (test 2.1 g/dL 3.5-5.0 L Speci men slightly code = 1145) hemolyzed BILIRUBIN TOTAL 3.4 mg/dL 0.2-1.2 H Specimen sli ghtly (BEAKER) (test code = hemoly zed 377) BILIRUBIN DIRECT 2.2 mg/dL 0.1-0.5 H Specimen sl ightly (BEAKER) (test code = hemoly zed 706) ALKALINE PHOSPHATASE 223 U/L 40-150 H (BEAKER) (test code = 346) AST (SGOT) (BEAKER) 38 U/L 5-34 H Specimen slightly (test code = 353) hemolyzed ALT (SGPT) (BEAKER) 19 U/L 6-55 Specimen slightly (test code = 347) hemolyzed Printing Sales Representative ID - DAYANARA MSpecimen slightly [id number] 03:39:00 Test Item Value Reference Range Interpretation Comments PARTIAL THROMBOPLASTIN TIME 142.5 seconds 22.5-36.0 H (BEAKER) (test code = 760) RAD, CHEST, 1 VIEW, NON [id number] 03:39:00Reason for exam:->post-opShould this be performed at the bedside?->Yes [facility] : 1945 Sex: FFINAL REPORT CLINICAL INDICATION: Postop Comparison: 07/26/2020 at 2130 hours The cardiomediastinal contours are stable. The lung volumes remain low. Central pulmonary vascular prominence and left greater than right parenchymal and left pleural opacities are similar within variation of acquisition technique. There is no pneumothorax. Support lines are stable. Signed: Janeth Smitheport Verified Date/Time: 07/27/2020 03:39:26 PROTHROMBIN TIME/[id number] 03:31:00 Test Item Value Reference Range Interpretation Comments PROTIME (BEAKER) 18.2 seconds 11.9-14.2 H (test code = 759) INR (BEAKER) (test 1.53 See_Comment [Automat ed message] code = 370) The system [employer] generated this result transmitted ref erence range: <=5.90. The reference range was not used to int erpret this result as normal/abnormal . RECOMMENDED COUMADIN/WARFARIN INR THERAPY RANGESSTANDARD DOSE: 2.0 - 3.0 Includes: PROPHYLAXIS forvenous thrombosis, systemic embolization; TREATMENT for venous thrombosis and/or pulmonary embolus.HIGH RISK: Target INR is 2.5-3.5 for patients with mechanical heart valves.CBC (HEMOGRAM ONLY)2020-07-27 03:22:00 Test Item Value Reference Range Interpretation Comments WHITE BLOOD CELL COUNT (BEAKER) 18.2 K/ L 3.5-10.5 H (test code = 775) RED BLOOD CELL COUNT (BEAKER) 2.52 M/ L 3.93-5.22 L (test code = 761) HEMOGLOBIN (BEAKER) (test code = 7.2 GM/DL 11.2-15.7 L 410) HEMATOCRIT (BEAKER) (test code = 23.0 % 34.1-44.9 L 411) MEAN CORPUSCULAR VOLUME (BEAKER) 91.3 fL 79.4-94.8 (test code = 753) MEAN CORPUSCULAR HEMOGLOBIN 28.6 pg 25.6-32.2 (BEAKER) (test code = 751) MEAN CORPUSCULAR HEMOGLOBIN CONC 31.3 GM/DL 32.2-35.5 L (BEAKER) (test code = 752) RED CELL DISTRIBUTION WIDTH 17.7 % 11.7-14.4 H (BEAKER) (test code = 412) PLATELET COUNT (BEAKER) (test 102 K/CU MM 150-450 L code = 756) MEAN PLATELET VOLUME (BEAKER) 10.6 fL 9.4-12.3 (test code = 754) NUCLEATED RED BLOOD CELLS 0 /100 WBC 0-0 (BEAKER) (test code = 413) Blood gas, [id number] 03:15:00 Test Item Value Reference Range Interpretation Comments pH, Arterial (test code 7.43 7.35-7.45 = 2744-1) pCO2, Arterial (test 37 See_Comment [Autom ated code = 2019-8) message] The system which generated this result transmitted reference range : 35 - 45 mm Hg. The reference range was not used to interpret this result as normal/abnormal . pO2, Arterial (test 183 See_Comment H [Automa horacio code = 2703-7) message] The system which generated this result transmitted reference range : 80 - 90 mm Hg. The reference range was not used to interpret this result as normal/abnormal . O2 Sat, Arterial (test 99.3 % 96-97 H code = 2708-6) HCO3, Arterial (test 24 mmol/L 21-29 code = 1960-4) Base Excess, Arterial -0.4 mmol/L -2-3 (test code = 1925-7) Patient Temperature 37.0 (test code = 8310-5) FIO2 (test code = 1819) 36 Lab Interpretation Abnormal (test code = 70512-7) [facility] 03:15:00 Test Item Value Reference Range Interpretation Comments Cortisol, Total (test code 23.6 ug/dL 3.7-19.4 H = 2755) ANABELA (test code = ANABELA) Printing Sales Representative ID - DAYANARA M Lab Interpretation (test Abnormal code = 50187-6) [facility] HospitalBLOOD GAS, [id number] 03:15:00 Test Item Value Reference Range Interpretation Comments PH ARTERIAL (BEAKER) (test code = 7.43 7.35-7.45 383) PCO2 ARTERIAL (BEAKER) (test code 37 mm Hg 35-45 = 384) PO2 ARTERIAL (BEAKER) (test code 183 mm Hg 80-90 H = 385) O2 SATURATION ARTERIAL (BEAKER) 99.3 % 96.0-97.0 H (test code = 386) HCO3 ARTERIAL (BEAKER) (test code 24 mmol/L 21-29 = 388) BASE EXCESS ARTERIAL (BEAKER) -0.4 mmol/L -2.0-3.0 (test code = 387) PATIENT TEMPERATURE (BEAKER) 37.0 (test code = 1818) FIO2 (BEAKER) (test code = 1819) 36.0 [id number] 03:15:00 Test Item Value Reference Range Interpretation Comments CORTISOL, TOTAL (BEAKER) (test 23.6 ug/dL 3.7-19.4 H code = 2755) Printing Sales Representative ID - DAYANARA MB-type Natriuretic Factor (BNP)2020-07-27 01:33:00 Test Item Value Reference Range Interpretation Comments BNP (test code = 12914-0) 2623 pg/mL 0-100 H ANABELA (test code = ANABELA) Printing Sales Representative ID - DB Lab Interpretation (test Abnormal code = 34273-9) [facility] NATRIURETIC FACTOR (BNP)2020-07-27 01:33:00 Test Item Value Reference Range Interpretation Comments B-TYPE NATRIURETIC PEPTIDE 2623 pg/mL 0-100 H (BEAKER) (test code = 700) Printing Sales Representative ID - DBLACTIC ACID, [id number] 00:58:00 Test Item Value Reference Range Interpretation Comments LACTATE BLOOD ARTERIAL (2) 0.7 mmol/L 0.5-2.2 (BEAKER) (test code = 2874) Printing Sales Representative ID - DBSpecimen slightly ictericPOCT-GLUCOSE [id number] 00:21:00 Test Item Value Reference Range Interpretation Comments POC-GLUCOSE METER 84 mg/dL 70-110 : TESTED A T [facility] [address] (EDUARD) (test code = [place], [address]38) [address]: Printing Sales Representative/Techni nael ID = [id number] for USER JOHNSON Zhang, CHEST, 1 VIEW, NON [id number] 22:21:00Reason for exam:->IABP [facility] : 1945 Sex: FFINAL REPORT Chest, 1 view. History: Intra-aortic balloon pump. Comparison: 07/26/2020 at 1154. IMPRESSION: Intra-aortic balloon pump marker terminates approximately 5.9 cm below the top the aortic arch. Remaining support tubes/devices identified in stable position. Thereis a stable left pleural effusion and left lower lung zone opacities suggestive of atelectasis. There is no evidence for pneumothorax. The cardiomediastinal silhouette is stable in appearance. Postsurgical changes from median sternotomy again noted. No acute osseous abnormality is identified. Signed: Mu Torres MDRepsaint luke[facility] hospital Verified Date/Time: 07/26/2020 22:21:42 Reading Location: [facility] C0[facility] Consult Reading Room B- TYPE NATRIURETIC FACTOR (BNP)2020-07-26 19:56:00 Test Item Value Reference Range Interpretation Comments B-TYPE NATRIURETIC PEPTIDE 2182 pg/mL 0-100 H (EDUARD) (test code = 700) Printing Sales Representative ID - DBPOC ACTIVATED CLOTTING [id number] 19:10:00 Test Item Value Reference Range Interpretation Comments Activated Clotting Time 268 sec : 74 -137 seconds, (test code = 441) Baseline: TESTED AT [facility] [address] [facility], [address]: Printing Sales Representative/Techni nael ID = [id number] for BHUPINDER TOLENTINO [facility]PO[facility][id number] 19:10:00 Test Item Value Reference Range Interpretation Comments ACTIVATED CLOTTING TIME 268 sec : 74 -137 seconds, (BEAKER) (test code = Eligioi ne: TESTED AT 441) [address], [address]: Printing Sales Representative/Techni nael ID = [id number] for BHUPINDER TOLENTINO [id number] 18:47:00 Test Item Value Reference Range Interpretation Comments ACTIVATED CLOTTING TIME 213 sec : 74 -137 seconds, (BEAKER) (test code = Saturnino ne: TESTED AT 441) [address], [address]: Printing Sales Representative/Techni nael ID = [id number] for BHUPINDER TOLENTINO Urinalysis w/Microscopic + Reflex to [id number] 17:21:00 Test Item Value Reference Range Interpretation Comments Color, UA (test code Ирина = 5778-6) Clarity, UA (test Hazy code = 5767-9) Specific [place], UA 1.026 1.001-1.035 (test code = 5811-5) pH, UA (test code = 6.5 5.0-8.0 5803-2) Protein, UA (test 50 mg/dL Negative A code = 53629-6) Glucose, UA (test Negative Negative code = 365) Ketones, UA (test Negative Negative code = 2514-8) Bilirubin, UA (test Positive Negative A code = 05065-9) Blood, UA (test code Negative Negative = 25436-6) Nitrite, UA (test Negative Negative code = 5802-4) Leukocytes, UA (test Trace Negative A code = 5799-2) Urobilinogen, UA 6.0 mg/dL 0.2-1 H (test code = 60030-5) RBC, UA (test code = 2 See_Comment [Autom ated 11956-9) message] The system which generated this result transmit horacio reference range : /HPF. The reference range was not used to interpret this result as normal/abnormal . WBC, UA (test code = 28 See_Comment [Autom ated 5821-4) message] The system which generated this result transmit horacio reference range : /HPF. The reference range was not used to interpret this result as normal/abnormal . Bacteria, UA (test Rare code = 60919-3) Mucus (test code = Rare 8247-9) Squam Epithel, UA <1 See_Comment [Automate d (test code = 75492-1) messag e] The system which generated this result transmit horacio reference range : /HPF. The reference range was not used to interpret this result as normal/abnormal . Hyaline Casts, UA 14 See_Comment [Automate d (test code = 57021-6) messag e] The system which generated this result transmit horacio reference range : /LPF. The reference range was not used to interpret this result as normal/abnormal . Crystals, Urine (test None Seen code = 91555-8) Specimen Source (test code = 2795) ANABELA (test code = ANABELA) Printing Sales Representative ID - [auto]Printing Sales Representative ID - tech Lab Interpretation Abnormal (test code = 46668-6) [facility]UR[facility] W/ REFLEX URINE [id number] 17:21:00 Test Item Value Reference Range Interpretation Comments COLOR (BEAKER) (test code = 470) Ирина CLARITY (BEAKER) (test code = 469) Hazy SPECIFIC GRAVITY UA (BEAKER) (test 1.026 1.001-1.035 code = 468) PH UA (BEAKER) (test code = 467) 6.5 5.0-8.0 PROTEIN UA (BEAKER) (test code = 50 mg/dL Negative A 464) GLUCOSE UA (BEAKER) (test code = Negative Negative 365) KETONES UA (BEAKER) (test code = Negative Negative 371) BILIRUBIN UA (BEAKER) (test code = Positive Negative A 462) BLOOD UA (BEAKER) (test code = 461) Negative Negative NITRITE UA (BEAKER) (test code = Negative Negative 465) LEUKOCYTE ESTERASE UA (BEAKER) Trace Negative A (test code = 466) UROBILINOGEN UA (BEAKER) (test code 6.0 mg/dL 0.2-1.0 H = 463) RBC UA (BEAKER) (test code = 519) 2 /HPF WBC UA (BEAKER) (test code = 520) 28 /HPF BACTERIA (BEAKER) (test code = 517) Rare MUCUS (BEAKER) (test code = 1574) Rare SQUAMOUS EPITHELIAL (BEAKER) (test < /HPF code = 516) HYALINE CASTS (BEAKER) (test code = 14 /LPF 514) CRYSTALS, URINE (BEAKER) (test code None Seen = 1521) SOURCE(BEAKER) (test code = 2795) Printing Sales Representative ID - [auto]Printing Sales Representative ID - techOXYGEN SATURATION, [id number] 16:09:00 Test Item Value Reference Range Interpretation Comments O2 SATURATION (MEASURED) (BEAKER) 82.9 % (test code = 1455) 2D Echo W/Doppler(CW/PW/Color)2020-07-26 14:26:46Ejection FractionSLEH ECHO HEARTLAB MKCKESSON CPACSInterface, External Ris In - 07/26/2020 2:26 PM C DTTransthoracic Echocardiography Report (TTE) Demographics Patient Name MELINDA CHAKRABORTY Date of Study 07/26/2020 Gender Female Visit Number [id number] Race Black Room Number 7A08 Number Date of 1945 Referring Oh Powell Physician MD Griselda Age 74 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 Sandoval Summary The left ventricle is chamber size (by vol index) is normal (female - LVED vol - 29-61ml/m2). The following segment(s) appear akinetic: mid to apical segments. Basal LV segments appear normal. LVEF by Grey's method of disk assessment is moderately reduced (30-34%) . In the absence of multivessel occlusive CAD, findings most suggestive of Takotsubo cardiomyopathy. Grade 1 diastolic dysfunction (impaired relaxation and low-normal LA pressure). Jarf-qf-ofjnmfnn tricuspid regurgitation. Estimated peak systolic PA pressure is 30 mmHg + RA pressure. A small circumferential pericardial effusion is pre sent . No evidence of tamponade. A left pleural effusion is noted. Aortic root size (Sinus of Valsalva diameter) is borderline dilated. 3.7 cm. Proximal ascending aorta size borderline dilated . 3.7 cm Signature Electronically signedby Oh Mobley MD(Interpreting physician) on 07/26/2020 02:26 PM Findings Left Ventricle The left ventricle is chambersize (by vol index) is normal (female - LVED vol - 29-61ml/m2). No evidence of LV hypertrophy. The following segment(s) appear akinet ic: mid to apical segments. Basal LV segments appear normal. Global LV systolic function moderate reduced . LVEF by Grey's methodof disk assessment is moderately reduced (30-34%) . In the absence of multivessel occlusive CAD, findings most suggestive of Takotsubo cardiomyopathy. Grade 1 diastolic dysfunction (impaired relaxation and low-normal LA pressure). Left Atrium LA is well visualized. LA size is normal (16-34 ml/m2) . Right Ventricle RV chamber size is normal . Global RV systolic function is depressed . Right Atrium RA size is dilated. Atrial Septum Normal interatrial septum by available views. Aortic Valve Mild AoV cusp thickening. A trace of aortic regurgitation. Mitral Valve Mild-moderate MV leaflet thickening. Trace mitral regurgitation. Tricuspid Valve TV structure is normal. Gnep-jv-wdkmdmwe tricuspid regurgitation. Estimated peak systolic PA pressure is 30 mmHg + RApressure. Pulmonic Valve Normal PV structure and function by limited views and Doppler. Aorta Aortic root size (Sinus of Valsalva diameter) is borderline dilated. 3.7 cm Proximal ascending aorta size borderline dilated . 3.7 cm Pericardium A small circumferential pericardial effusion is present . No evidence of tamponade. IVC/SVC/PA/PV/Pleural IVC not visualized due to bandages. A left pleural effusion is noted. Chambers/Structures Left Atrium LA Dimension: 3.45 cm LA Area: 14.59 cm^2 LA Volume: 57.06 ml LA Vol. Index: 30 ml/m^2 Left Ventricle LVIDd: 4.29 cm LV Septum Diastolic: 0.95 cm LV PW Diastolic: 1.1 cm LVEDV Grey's:97.25 ml LVESV Grey's:63.88 ml LVEF Grey's: 34.3 % LVEDVI: 50 ml/m^2 LVESVI: 33 ml/m^2 LVOT Diameter: 2.31 cm Right Ventricle RVOT VTI: 12.05 cm Aorta Ao Root S of Ioana.: 3.77 cm Ascending Aorta: 3.69 cm Doppler/Quantitative Measurements Mitral Valve MV Peak E-Wave: 0.5 m/s MV Peak A-Wave: 0.79 m/s P1/2t: 71.2 msec E/A Ratio: 0.63 Peak Gradient: 0.99 mmHg Deceleration Time: 188.2 msec MV Area (PHT): 3.09 cm^2 MV Andrea. Peak: Tissue Doppler E' Lateral Velocity: 0.09 m/s E/E': 5.5 Aortic Valve Peak Velocity: 1.52 m/s Mean Velocity: 1.1 m/s Peak Gradient: 9.19 mmHg Mean Gradient: 5.17 mmHg AV Area (continuity): 2.81 cm^2 AV VTI: 24.18 cm AV DVI: 0.67 LVOT Peak Velocity: 0.98 m/s Peak Gradient: 3.87mmHg Mean Velocity: 0.74 m/s Mean Gradient: 2.34 mmHg LVOT Diameter: 2.31 cm LVOT VTI: 16.24 cm LVOT Area: 4.19 cm^2 LVOT SV:68.03 ml LVOT CO: 6.46 l/min LVOT CI: 3.35 l/min/m^2 Tricuspid Valve TR Velocity: 2.72 m/s TR Gradient: 29.[address] [facility] CenterBASIC METABOLIC [id number] 14:08:00 Test Item Value Reference Range Interpretation Comments SODIUM (BEAKER) 137 meq/L 136-145 (test code = 381) POTASSIUM (BEAKER) 4.3 meq/L 3.5-5.1 (test code = 379) CHLORIDE (BEAKER) 106 meq/L 98-107 (test code = 382) CO2 (BEAKER) (test 24 meq/L 22-29 code = 355) BLOOD UREA NITROGEN 21 mg/dL 7-21 (BEAKER) (test code = 354) CREATININE (BEAKER) 0.51 mg/dL 0.57-1.25 L (test code = 358) GLUCOSE RANDOM 86 mg/dL 70-105 (BEAKER) (test code = 652) CALCIUM (BEAKER) 7.7 mg/dL 8.4-10.2 L (test code = 697) EGFR (BEAKER) (test 142 mL/min/1.73 ESTIM ATED GFR IS code = 1092) sq m NOT ACCURATE CREATININE CLEARANCE IN PREDICTING GLOMERULAR FILTRATION RATE . ESTIMATED GFR I S NOT APPLICABLE FOR DIALYSIS PATIEN TS. Printing Sales Representative ID - DAYANARA MSpecimen slightly ictericPOCT-GLUCOSE [id number] 13:58:00 Test Item Value Reference Range Interpretation Comments POC-GLUCOSE METER 84 mg/dL 70-110 : TESTED A T [facility] 6720 (BEAKER) (test code = LUCY Omer [facility], 1538) [address]: Printing Sales Representative/Techni nael ID = [id number] for PHEN -SANCHEZ (V), CRYSTAL [id number] 12:43:00 Test Item Value Reference Range Interpretation Comments Procalcitonin (test code = 3.40 ng/mL <0.05 H 63730-7) ANABELA (test code = ANABELA) SEPSIS RISK (ng/mL)Low: 0.05-0.50Intermedi ate: 0.51-2.00High: >=2.01 Lab Interpretation (test Abnormal code = 25941-0) [id number] 12:43:00 Test Item Value Reference Range Interpretation Comments PROCALCITONIN (BEAKER) (test code 3.40 ng/mL <0.05 H = 3036) SEPSIS RISK (ng/mL)Low: 0.05-0.50Intermediate: 0.51-2.00High: >=2.01Lactic acid, [id number] 12:35:00 Test Item Value Reference Range Interpretation Comments Lactate, Venous (test code 1.79 mmol/L 0.5-2.2 = 2872) ANABELA (test code = ANABELA) Printing Sales Representative ID - DAYANARA M Lab Interpretation (test Normal code = 40828-3) [facility] HospitalLACTIC ACID, [id number] 12:35:00 Test Item Value Reference Range Interpretation Comments LACTATE BLOOD VENOUS (2) (BEAKER) 1.79 mmol/L 0.50-2.20 (test code = 2872) Printing Sales Representative ID - DAYANARA MBLOOD GAS, [id number] 12:01:00 Test Item Value Reference Range Interpretation Comments PH ARTERIAL (BEAKER) (test code = 7.53 7.35-7.45 H 383) PCO2 ARTERIAL (BEAKER) (test code 32 mm Hg 35-45 L = 384) PO2 ARTERIAL (BEAKER) (test code = 81 mm Hg 80-90 385) O2 SATURATION ARTERIAL (BEAKER) 97.4 % 96.0-97.0 H (test code = 386) HCO3 ARTERIAL (BEAKER) (test code 26 mmol/L 21-29 = 388) BASE EXCESS ARTERIAL (BEAKER) 3.6 mmol/L -2.0-3.0 H (test code = 387) PATIENT TEMPERATURE (BEAKER) (test 36.0 code = 1818) FIO2 (BEAKER) (test code = 1819) 100.0 RAD, CHEST, 1 VIEW, NON [id number] 12:01:00Reason for exam:- >pneumoniaShould this be performed at the bedside?->Yes [facility] : 1945 Sex: FFINAL REPORT RAD, CHEST, 1 VIEW, NON DEPT INDICATION: pneumonia COMPARISON: Prior day's exam FINDINGS: Portable frontal view of the chest. IMPRESSION: Support Lines: Port-A-Cath tip overlies the SVC Lungs and pleura: Moderate left effusion No pneumothorax.Heart and mediastinum: Stable contours. Stable surgical changes.Additional findings: None. Signed: Bianca Harris Verified Date/Time: 07/26/2020 12:01:19 Reading Location: [facility] Radiology Reading Room CBC (HEMOGRAM ONLY)2020-07-26 11:48:00 Test Item Value Reference Range Interpretation Comments WHITE BLOOD CELL COUNT (BEAKER) 18.4 K/ L 3.5-10.5 H (test code = 775) RED BLOOD CELL COUNT (BEAKER) 3.27 M/ L 3.93-5.22 L (test code = 761) HEMOGLOBIN (BEAKER) (test code = 9.4 GM/DL 11.2-15.7 L 410) HEMATOCRIT (BEAKER) (test code = 28.8 % 34.1-44.9 L 411) MEAN CORPUSCULAR VOLUME (BEAKER) 88.1 fL 79.4-94.8 (test code = 753) MEAN CORPUSCULAR HEMOGLOBIN 28.7 pg 25.6-32.2 (BEAKER) (test code = 751) MEAN CORPUSCULAR HEMOGLOBIN CONC 32.6 GM/DL 32.2-35.5 (BEAKER) (test code = 752) RED CELL DISTRIBUTION WIDTH 17.3 % 11.7-14.4 H (BEAKER) (test code = 412) PLATELET COUNT (BEAKER) (test 169 K/CU MM 150-450 code = 756) MEAN PLATELET VOLUME (BEAKER) 9.9 fL 9.4-12.3 (test code = 754) NUCLEATED RED BLOOD CELLS 0 /100 WBC 0-0 (BEAKER) (test code = 413) POCT-GLUCOSE [id number] 08:47:00 Test Item Value Reference Range Interpretation Comments POC-GLUCOSE METER 82 mg/dL 70-110 : TESTED A T [facility] 6720 (BEAKER) (test code = [facility] [place], 1538) [address]: Printing Sales Representative/Techni nael ID = [id number] for WILL ROME ARCEO RAD, CHEST, 1 VIEW, NON [id number] 08:38:00Reason for exam:->post-opShould this be performed at the bedside?->Yes [facility] : 1945 Sex: FFINAL REPORT RAD, CHEST, 1 VIEW, NON DEPT INDICATION: post-op COMPARISON: Prior day's exam FINDINGS: Portable frontal view of the chest. IMPRESSION: Support Lines: Port-A-Cath tip overlies the SVC. Chest tubes and mediastinal drains. Lungs and pleura: Increased left effusion and basilar atelectasis No pneumothorax.Heart and mediastinum: Stable contours. Stable surgical changes.Additional findings: None. Signed: Bianca Harris Verified Date/Time: 108:38:41 Reading Location: [facility] Radiology Reading Room BASIC METABOLIC [id number] 04:16:00 Test Item Value Reference Range Interpretation Comments SODIUM (BEAKER) 135 meq/L 136-145 L (test code = 381) POTASSIUM (BEAKER) 4.2 meq/L 3.5-5.1 (test code = 379) CHLORIDE (BEAKER) 104 meq/L 98-107 (test code = 382) CO2 (BEAKER) (test 26 meq/L 22-29 code = 355) BLOOD UREA NITROGEN 21 mg/dL 7-21 (BEAKER) (test code = 354) CREATININE (BEAKER) 0.50 mg/dL 0.57-1.25 L (test code = 358) GLUCOSE RANDOM 112 mg/dL 70-105 H (BEAKER) (test code = 652) CALCIUM (BEAKER) 7.6 mg/dL 8.4-10.2 L (test code = 697) EGFR (BEAKER) (test 146 mL/min/1.73 ESTIM ATED GFR IS code = 1092) sq m NOT ACCURATE CREATININE CLEARANCE IN PREDICTING GLOMERULAR FILTRATION RATE . ESTIMATED GFR I S NOT APPLICABLE FOR DIALYSIS PATIEN TS. Printing Sales Representative ID - DAYANARA [id number] 04:09:00 Test Item Value Reference Range Interpretation Comments MAGNESIUM (BEAKER) (test code = 2.0 mg/dL 1.6-2.6 627) Printing Sales Representative ID - DAYANARA [id number] 04:09:00 Test Item Value Reference Range Interpretation Comments PHOSPHORUS (BEAKER) (test code = 2.0 mg/dL 2.3-4.7 L 604) Printing Sales Representative ID - DAYANARA MPROTHROMBIN TIME/[id number] 03:58:00 Test Item Value Reference Range Interpretation Comments PROTIME (BEAKER) 14.8 seconds 11.9-14.2 H (test code = 759) INR (BEAKER) (test 1.18 See_Comment [Automat ed message] code = 370) The system [employer] generated this result transmitted ref erence range: <=5.90. The reference range was not used to int erpret this result as normal/abnormal . RECOMMENDED COUMADIN/WARFARIN INR THERAPY RANGESSTANDARD DOSE: 2.0 - 3.0 Includes: PROPHYLAXIS forvenous thrombosis, systemic embolization; TREATMENT for venous thrombosis and/or pulmonary embolus.HIGH RISK: Target INR is 2.5-3.5 for patients with mechanical heart valves.[id number] 03:58:00 Test Item Value Reference Range Interpretation Comments PARTIAL THROMBOPLASTIN TIME 34.3 seconds 22.5-36.0 (BEAKER) (test code = 760) CBC (HEMOGRAM ONLY)2020-07-26 03:46:00 Test Item Value Reference Range Interpretation Comments WHITE BLOOD CELL COUNT (BEAKER) 7.2 K/ L 3.5-10.5 (test code = 775) RED BLOOD CELL COUNT (BEAKER) 3.30 M/ L 3.93-5.22 L (test code = 761) HEMOGLOBIN (BEAKER) (test code = 9.4 GM/DL 11.2-15.7 L 410) HEMATOCRIT (BEAKER) (test code = 30.0 % 34.1-44.9 L 411) MEAN CORPUSCULAR VOLUME (BEAKER) 90.9 fL 79.4-94.8 (test code = 753) MEAN CORPUSCULAR HEMOGLOBIN 28.5 pg 25.6-32.2 (BEAKER) (test code = 751) MEAN CORPUSCULAR HEMOGLOBIN CONC 31.3 GM/DL 32.2-35.5 L (BEAKER) (test code = 752) RED CELL DISTRIBUTION WIDTH 17.4 % 11.7-14.4 H (BEAKER) (test code = 412) PLATELET COUNT (BEAKER) (test 187 K/CU MM 150-450 code = 756) MEAN PLATELET VOLUME (BEAKER) 9.8 fL 9.4-12.3 (test code = 754) NUCLEATED RED BLOOD CELLS 0 /100 WBC 0-0 (BEAKER) (test code = 413) POCT-GLUCOSE [id number] 22:14:00 Test Item Value Reference Range Interpretation Comments POC-GLUCOSE METER 113 mg/dL 70-110 H : TESTED A T [facility] 6720 (BEAKER) (test code = [facility], 1538) [address]: Printing Sales Representative/Techni nael ID = [id number] for RAZ MANE POCT-GLUCOSE [id number] 17:22:00 Test Item Value Reference Range Interpretation Comments POC-GLUCOSE METER 83 mg/dL 70-110 : TESTED A T [facility] 6720 (BEAKER) (test code = [facility], 1538) 82851: Printing Sales Representative/Techni nael ID = [id number] for SAMANTHA CIFUENTES POCT-GLUCOSE [id number] 05:44:00 Test Item Value Reference Range Interpretation Comments POC-GLUCOSE METER 90 mg/dL 70-110 : TESTED A T [facility] 6720 (EDUARD) (test code = [facility] [place], 1538) [address]: Printing Sales Representative/Techni nael ID = [id number] for ALI (V), YESSICA RAD, CHEST, 1 VIEW, NON [id number] 04:37:00Reason for exam:->post-opShould this be performed at the bedside?->Yes [facility] : 1945 Sex: FFINAL REPORT CLINICAL INDICATION: Postop Comparison: 07/24/2020 at 1523 hours The cardiomediastinal contours are stable. Left-sided parenchymal and pleural opacities are unchanged. There is no pneumothorax. Support lines are stable. Signed: Janeth Smith VerifiedDate/Time: 07/25/2020 04:37:14 Comprehensive metabolic [id number] 03:34:00 Test Item Value Reference Range Interpretation Comments Protein, Total (test 4.6 See_Comment L [Autom ated code = 2885-2) message] The system which generated this result transmitted reference range : 6.0 - 8.3 gm/dL . The reference range was not used to interpr et this result as normal/abnormal . Albumin (test code = 2.0 g/dL 3.5-5 L 13116-3) Alkaline Phosphatase 308 U/L 40-150 H (test code = 6768-6) Total Bilirubin (test 3.1 mg/dL 0.2-1.2 H code = 1974-2) Sodium (test code = 136 meq/L 164-906 2317-2) Potassium (test code 3.8 meq/L 3.5-5.1 = 2823-3) Chloride (test code = 104 meq/L 98-107 5-0) CO2 (test code = 25 meq/L 22-29 8-9) BUN (test code = 15 mg/dL 7-21 3094-0) Creatinine (test code 0.48 mg/dL 0.57-1.25 L = 2160-0) Glucose (test code = 108 mg/dL 70-105 H 2345-7) Calcium (test code = 7.5 mg/dL 8.4-10.2 L 08328-3) AST (test code = 41 U/L 5-34 H 1920-8) ALT (test code = 28 U/L 6-55 1742-6) EGFR (test code = 153 mL/min/1.73 [place] [address]-9) NOT ACCURATE CREATININE CLEARANCE IN PREDICTING GLOMERULAR FILTRATION RATE . ESTIMATED GFR I S NOT APPLICABLE FOR DIALYSIS PATIENTS. ANABELA (test code = ANABELA) Printing Sales Representative ID - DAYANARA MSpecimen slightly icteric Lab Interpretation Abnormal (test code = 93148-7) [facility] [id number] 03:34:00 Test Item Value Reference Range Interpretation Comments TOTAL PROTEIN 4.6 gm/dL 6.0-8.3 L (BEAKER) (test code = 770) ALBUMIN (BEAKER) 2.0 g/dL 3.5-5.0 L (test code = 1145) ALKALINE PHOSPHATASE 308 U/L 40-150 H (BEAKER) (test code = 346) BILIRUBIN TOTAL 3.1 mg/dL 0.2-1.2 H (BEAKER) (test code = 377) SODIUM (BEAKER) (test 136 meq/L 136-145 code = 381) POTASSIUM (BEAKER) 3.8 meq/L 3.5-5.1 (test code = 379) CHLORIDE (BEAKER) 104 meq/L 98-107 (test code = 382) CO2 (BEAKER) (test 25 meq/L -29 code = 355) BLOOD UREA NITROGEN 15 mg/dL 7-21 (BEAKER) (test code = 354) CREATININE (BEAKER) 0.48 mg/dL 0.57-1.25 L (test code = 358) GLUCOSE RANDOM 108 mg/dL 70-105 H (BEAKER) (test code = 652) CALCIUM (BEAKER) 7.5 mg/dL 8.4-10.2 L (test code = 697) AST (SGOT) (BEAKER) 41 U/L 5-34 H (test code = 353) ALT (SGPT) (BEAKER) 28 U/L 6-55 (test code = 347) EGFR (BEAKER) (test 153 ESTIMATE D GFR IS code = 1092) mL/min/1.73 sq NOT ACCURA TE m CREATININE CLEARANCE IN PREDICTING GLOMERULAR FILTRATION RATE . ESTIMATED GFR I S NOT APPLICABLE FOR DIALYSIS PATIEN TS. Printing Sales Representative ID - DAYANARA MSpecimen slightly [id number] 03:24:00 Test Item Value Reference Range Interpretation Comments MAGNESIUM (BEAKER) (test code = 1.7 mg/dL 1.6-2.6 627) Printing Sales Representative ID - DAYANARA [id number] 03:23:00 Test Item Value Reference Range Interpretation Comments PARTIAL THROMBOPLASTIN TIME 35.8 seconds 22.5-36.0 (BEAKER) (test code = 760) PROTHROMBIN TIME/[id number] 03:22:00 Test Item Value Reference Range Interpretation Comments PROTIME (BEAKER) 15.2 seconds 11.9-14.2 H (test code = 759) INR (BEAKER) (test 1.22 See_Comment [Automat ed message] code = 370) The system [employer] generated this result transmitted ref erence range: <=5.90. The reference range was not used to int erpret this result as normal/abnormal . RECOMMENDED COUMADIN/WARFARIN INR THERAPY RANGESSTANDARD DOSE: 2.0 - 3.0 Includes: PROPHYLAXIS forvenous thrombosis, systemic embolization; TREATMENT for venous thrombosis and/or pulmonary embolus.HIGH RISK: Target INR is 2.5-3.5 for patients with mechanical heart valves.CBC (HEMOGRAM ONLY)2020-07-25 02:52:00 Test Item Value Reference Range Interpretation Comments WHITE BLOOD CELL COUNT (BEAKER) 10.8 K/ L 3.5-10.5 H (test code = 775) RED BLOOD CELL COUNT (BEAKER) 3.14 M/ L 3.93-5.22 L (test code = 761) HEMOGLOBIN (BEAKER) (test code = 9.0 GM/DL 11.2-15.7 L 410) HEMATOCRIT (BEAKER) (test code = 27.9 % 34.1-44.9 L 411) MEAN CORPUSCULAR VOLUME (BEAKER) 88.9 fL 79.4-94.8 (test code = 753) MEAN CORPUSCULAR HEMOGLOBIN 28.7 pg 25.6-32.2 (BEAKER) (test code = 751) MEAN CORPUSCULAR HEMOGLOBIN CONC 32.3 GM/DL 32.2-35.5 (BEAKER) (test code = 752) RED CELL DISTRIBUTION WIDTH 17.2 % 11.7-14.4 H (BEAKER) (test code = 412) PLATELET COUNT (BEAKER) (test 183 K/CU MM 150-450 code = 756) MEAN PLATELET VOLUME (BEAKER) 9.7 fL 9.4-12.3 (test code = 754) NUCLEATED RED BLOOD CELLS 0 /100 WBC 0-0 (BEAKER) (test code = 413) POCT-GLUCOSE [id number] 23:40:00 Test Item Value Reference Range Interpretation Comments POC-GLUCOSE METER 105 mg/dL 70-110 : TESTED A T [facility] 6720 (BEAKER) (test code = [facility], 1538) 63388: Printing Sales Representative/Techni nael ID = [id number] for AL I (V), YESSICA POCT-GLUCOSE [id number] 17:32:00 Test Item Value Reference Range Interpretation Comments POC-GLUCOSE METER 88 mg/dL 70-110 : TESTED A T [facility] 6720 (BEAKER) (test code = [facility], 1538) 38183: Printing Sales Representative/Techni nael ID = [id number] for Avis Garibay RAD, CHEST, 1 VIEW, NON [id number] 16:01:00Reason for exam:->air leak chest tubeShould this be performed at the bedside?->Yes [facility] : 1945 Sex: FFINAL REPORT TECHNIQUE: Frontal view of the chest. INDICATION: air leak chest tube COMPARISON: Earlier today. FINDINGS: LINES/TUBES: Mediastinal drain and right-sided chest tube is unchanged. Right IJ central venous catheter tip terminates over the superior vena cava. Right IJ port catheter tip terminates over the right atrium.. LUNGS: Moderate left-sided pleural effusion and basilar consolidation remains unchanged. No pneumothorax. There is mild right basilar atelectasis. HEART AND MEDIASTINUM: The cardiomediastinal silhouette is stable status post median sternotomy.. SOFT TISSUES AND BONES: Unremarkable. IMPRESSION:Unchanged left-sided pleural effusion and basilar consolidation. No pneumothorax. Signed: Emily Prasad Verified Date/Time: 07/24/2020 16:01:19 Reading Location: [facility] C013Y CT Body Reading Room POCT-GLUCOSE [id number] 09:59:00 Test Item Value Reference Range Interpretation Comments POC-GLUCOSE METER 81 mg/dL 70-110 : [facility] ([email or web address]) (test code = [facility], 1538) 28883: Printing Sales Representative/Techni nael ID = [id number] for Nasrin starr Avis POCT-GLUCOSE [id number] 06:12:00 Test Item Value Reference Range Interpretation Comments POC-GLUCOSE METER 80 mg/dL 70-110 : TESTED A T [facility] 6720 ([email or web address]) (test code = [facility], 1538) 16312: Printing Sales Representative/Techni nael ID = [id number] for ALI (V), YESSICA COMPREHENSIVE METABOLIC [id number] 04:13:00 Test Item Value Reference Range Interpretation Comments TOTAL PROTEIN 4.4 gm/dL 6.0-8.3 L (BEAKER) (test code = 770) ALBUMIN (BEAKER) 2.0 g/dL 3.5-5.0 L (test code = 1145) ALKALINE PHOSPHATASE 195 U/L 40-150 H (BEAKER) (test code = 346) BILIRUBIN TOTAL 3.0 mg/dL 0.2-1.2 H (BEAKER) (test code = 377) SODIUM (BEAKER) (test 139 meq/L 136-145 code = 381) POTASSIUM (BEAKER) 3.7 meq/L 3.5-5.1 (test code = 379) CHLORIDE (BEAKER) 108 meq/L 98-107 H (test code = 382) CO2 (BEAKER) (test 25 meq/L 22-29 code = 355) BLOOD UREA NITROGEN 15 mg/dL 7-21 (BEAKER) (test code = 354) CREATININE (BEAKER) 0.51 mg/dL 0.57-1.25 L (test code = 358) GLUCOSE RANDOM 87 mg/dL 70-105 (BEAKER) (test code = 652) CALCIUM (BEAKER) 7.9 mg/dL 8.4-10.2 L (test code = 697) AST (SGOT) (BEAKER) 25 U/L 5-34 (test code = 353) ALT (SGPT) (BEAKER) 18 U/L 6-55 (test code = 347) EGFR (BEAKER) (test 142 ESTIMATE D GFR IS code = 1092) mL/min/1.73 sq NOT ACCURA TE m CREATININE CLEARANCE IN PREDICTING GLOMERULAR FILTRATION RATE . ESTIMATED GFR I S NOT APPLICABLE FOR DIALYSIS PATIEN TS. Printing Sales Representative ID - DAYANARA MSpecimen slightly [id number] 04:06:00 Test Item Value Reference Range Interpretation Comments PARTIAL THROMBOPLASTIN TIME 35.5 seconds 22.5-36.0 (BEAKER) (test code = 760) PROTHROMBIN TIME/[id number] 04:05:00 Test Item Value Reference Range Interpretation Comments PROTIME (BEAKER) 15.7 seconds 11.9-14.2 H (test code = 759) INR (BEAKER) (test 1.27 See_Comment [Automat ed message] code = 370) The system [employer] generated this result transmitted ref erence range: <=5.90. The reference range was not used to int erpret this result as normal/abnormal . RECOMMENDED COUMADIN/WARFARIN INR THERAPY RANGESSTANDARD DOSE: 2.0 - 3.0 Includes: PROPHYLAXIS forvenous thrombosis, systemic embolization; TREATMENT for venous thrombosis and/or pulmonary embolus.HIGH RISK: Target INR is 2.5-3.5 for patients with mechanical heart valves.[id number] 04:01:00 Test Item Value Reference Range Interpretation Comments MAGNESIUM (BEAKER) (test code = 1.9 mg/dL 1.6-2.6 627) Printing Sales Representative ID - DAYANARA MRAD, CHEST, 1 VIEW, NON [id number] 03:48:00Reason for exam:->post-opShould this be performed at the bedside?->[facility] : 1945 Sex: FFINAL REPORT CLINICAL INDICATION: Postop Comparison: 07/23/2020 The cardiomediastinal contours are stable. The patient has been extubated. Worsening, hazy opacification ofthe left hemithorax reflect a layering pleural effusion and associated atelectasis. Pneumonitis should be excluded clinically. There is no pneumothorax. A PA catheter has been removed through a right IJ CVC. Remaining support lines are stable. Signed: [facility] Verified Date/Time: 07/24/2020 03:48:25 CBC (HEMOGRAM ONLY)2020-07-24 03:38:00 Test Item Value Reference Range Interpretation Comments WHITE BLOOD CELL COUNT (BEAKER) 11.1 K/ L 3.5-10.5 H (test code = 775) RED BLOOD CELL COUNT (BEAKER) 2.81 M/ L 3.93-5.22 L (test code = 761) HEMOGLOBIN (BEAKER) (test code = 8.1 GM/DL 11.2-15.7 L 410) HEMATOCRIT (BEAKER) (test code = 25.1 % 34.1-44.9 L 411) MEAN CORPUSCULAR VOLUME (BEAKER) 89.3 fL 79.4-94.8 (test code = 753) MEAN CORPUSCULAR HEMOGLOBIN 28.8 pg 25.6-32.2 (BEAKER) (test code = 751) MEAN CORPUSCULAR HEMOGLOBIN CONC 32.3 GM/DL 32.2-35.5 (BEAKER) (test code = 752) RED CELL DISTRIBUTION WIDTH 17.2 % 11.7-14.4 H (BEAKER) (test code = 412) PLATELET COUNT (BEAKER) (test 158 K/CU MM 150-450 code = 756) MEAN PLATELET VOLUME (BEAKER) 10.5 fL 9.4-12.3 (test code = 754) NUCLEATED RED BLOOD CELLS 0 /100 WBC 0-0 (BEAKER) (test code = 413) BLOOD GAS, [id number] 03:38:00 Test Item Value Reference Range Interpretation Comments PH ARTERIAL (BEAKER) (test code = 7.47 7.35-7.45 H 383) PCO2 ARTERIAL (BEAKER) (test code 40 mm Hg 35-45 = 384) PO2 ARTERIAL (BEAKER) (test code = 194 mm Hg 80-90 H 385) O2 SATURATION ARTERIAL (BEAKER) 99.4 % 96.0-97.0 H (test code = 386) HCO3 ARTERIAL (BEAKER) (test code 28 mmol/L 21-29 = 388) BASE EXCESS ARTERIAL (BEAKER) 3.8 mmol/L -2.0-3.0 H (test code = 387) PATIENT TEMPERATURE (BEAKER) (test 37.0 code = 1818) HEPATIC FUNCTION [id number] 14:50:00 Test Item Value Reference Range Interpretation Comments TOTAL PROTEIN (BEAKER) (test code = 5.6 gm/dL 6.0-8.3 L 770) ALBUMIN (BEAKER) (test code = 1145) 2.5 g/dL 3.5-5.0 L BILIRUBIN TOTAL (BEAKER) (test code 3.9 mg/dL 0.2-1.2 H = 377) BILIRUBIN DIRECT (BEAKER) (test 2.9 mg/dL 0.1-0.5 H code = 706) ALKALINE PHOSPHATASE (BEAKER) (test 207 U/L 40-150 H code = 346) AST (SGOT) (BEAKER) (test code = 24 U/L 5-34 353) ALT (SGPT) (BEAKER) (test code = 18 U/L 6-55 347) Printing Sales Representative ID - DBSpecimen slightly [id number] 14:48:00 Test Item Value Reference Range Interpretation Comments Potassium (test code = 3.9 meq/L 3.5-5.1 2823-3) ANABELA (test code = ANABELA) Printing Sales Representative ID - DB Lab Interpretation (test Normal code = 09310-0) [id number] 14:48:00 Test Item Value Reference Range Interpretation Comments POTASSIUM (BEAKER) (test code = 3.9 meq/L 3.5-5.1 379) Printing Sales Representative ID - DBHEMOGLOBIN AND [id number] 14:26:00 Test Item Value Reference Range Interpretation Comments HEMOGLOBIN (BEAKER) (test code = 9.4 GM/DL 11.2-15.7 L 410) HEMATOCRIT (BEAKER) (test code = 28.9 % 34.1-44.9 L 411) Printing Sales Representative ID - [id number] SATURATION, [id number] 06:31:00 Test Item Value Reference Range Interpretation Comments O2 SATURATION (MEASURED) (BEAKER) 75.4 % (test code = 1455) BASIC METABOLIC [id number] 05:35:00 Test Item Value Reference Range Interpretation Comments SODIUM (BEAKER) 141 meq/L 136-145 (test code = 381) POTASSIUM (BEAKER) 3.9 meq/L 3.5-5.1 (test code = 379) CHLORIDE (BEAKER) 109 meq/L 98-107 H (test code = 382) CO2 (BEAKER) (test 26 meq/L 22-29 code = 355) BLOOD UREA NITROGEN 17 mg/dL 7-21 (BEAKER) (test code = 354) CREATININE (BEAKER) 0.66 mg/dL 0.57-1.25 (test code = 358) GLUCOSE RANDOM 86 mg/dL 70-105 (BEAKER) (test code = 652) CALCIUM (BEAKER) 8.3 mg/dL 8.4-10.2 L (test code = 697) EGFR (BEAKER) (test 106 mL/min/1.73 ESTIM ATED GFR IS code = 1092) sq m NOT ACCURATE CREATININE CLEARANCE IN PREDICTING GLOMERULAR FILTRATION RATE . ESTIMATED GFR I S NOT APPLICABLE FOR DIALYSIS PATIEN TS. Printing Sales Representative ID - [id number] 05:35:00 Test Item Value Reference Range Interpretation Comments MAGNESIUM (BEAKER) (test code = 2.3 mg/dL 1.6-2.6 627) Printing Sales Representative ID - JIGNARAD, CHEST, 1 VIEW, NON [id number] 05:28:00Reason for exam:->post-opShould this be performed at the bedside?->Yes [facility] : 1945 Sex: FFINAL REPORT RAD, CHEST, 1 VIEW, NON DEPT INDICATION: post-op COMPARISON: Prior day's exam FINDINGS: Portable frontal view of the chest. IMPRESSION: Support Lines: No significant change. Lungs and pleura: Left lung base opacities are stable. The remainder of lungs are clear. No overt pulmonary edema. No pneumothorax.Heart and mediastinum: Stable contours. Additional fi ndings: None. Signed: Reji Kumar MDReport Verified Date/Time: 07/23/2020 05:28:13 BLOOD GAS, [id number] 05:16:00 Test Item Value Reference Range Interpretation Comments PH ARTERIAL (BEAKER) (test code = 7.47 7.35-7.45 H 383) PCO2 ARTERIAL (BEAKER) (test code 36 mm Hg 35-45 = 384) PO2 ARTERIAL (BEAKER) (test code = 158 mm Hg 80-90 H 385) O2 SATURATION ARTERIAL (BEAKER) 99.1 % 96.0-97.0 H (test code = 386) HCO3 ARTERIAL (BEAKER) (test code 26 mmol/L 21-29 = 388) BASE EXCESS ARTERIAL (BEAKER) 1.8 mmol/L -2.0-3.0 (test code = 387) PATIENT TEMPERATURE (BEAKER) (test 37.1 code = 1818) FIO2 (BEAKER) (test code = 1819) 40.0 [id number] 04:50:00 Test Item Value Reference Range Interpretation Comments PARTIAL THROMBOPLASTIN TIME 34.1 seconds 22.5-36.0 (BEAKER) (test code = 760) PROTHROMBIN TIME/[id number] 04:49:00 Test Item Value Reference Range Interpretation Comments PROTIME (BEAKER) 15.5 seconds 11.9-14.2 H (test code = 759) INR (BEAKER) (test 1.25 See_Comment [Automat ed message] code = 370) The system [employer] generated this result transmitted ref erence range: <=5.90. The reference range was not used to int erpret this result as normal/abnormal . RECOMMENDED COUMADIN/WARFARIN INR THERAPY RANGESSTANDARD DOSE: 2.0 - 3.0 Includes: PROPHYLAXIS forvenous thrombosis, systemic embolization; TREATMENT for venous thrombosis and/or pulmonary embolus.HIGH RISK: Target INR is 2.5-3.5 for patients with mechanical heart valves.CBC (HEMOGRAM ONLY)2020-07-23 04:47:00 Test Item Value Reference Range Interpretation Comments WHITE BLOOD CELL COUNT (BEAKER) 11.3 K/ L 3.5-10.5 H (test code = 775) RED BLOOD CELL COUNT (BEAKER) 2.50 M/ L 3.93-5.22 L (test code = 761) HEMOGLOBIN (BEAKER) (test code = 7.2 GM/DL 11.2-15.7 L 410) HEMATOCRIT (BEAKER) (test code = 22.7 % 34.1-44.9 L 411) MEAN CORPUSCULAR VOLUME (BEAKER) 90.8 fL 79.4-94.8 (test code = 753) MEAN CORPUSCULAR HEMOGLOBIN 28.8 pg 25.6-32.2 (BEAKER) (test code = 751) MEAN CORPUSCULAR HEMOGLOBIN CONC 31.7 GM/DL 32.2-35.5 L (BEAKER) (test code = 752) RED CELL DISTRIBUTION WIDTH 17.7 % 11.7-14.4 H (BEAKER) (test code = 412) PLATELET COUNT (BEAKER) (test 130 K/CU MM 150-450 L code = 756) MEAN PLATELET VOLUME (BEAKER) 10.5 fL 9.4-12.3 (test code = 754) NUCLEATED RED BLOOD CELLS 0 /100 WBC 0-0 (BEAKER) (test code = 413) POCT-GLUCOSE [id number] 01:05:00 Test Item Value Reference Range Interpretation Comments POC-GLUCOSE METER 86 mg/dL 70-110 : TESTED A T [facility] 6720 (BEAKER) ([facility] = 1538) [address]: Printing Sales Representative/Techni nael ID = [id number] for CLARIBEL SANCHEZ CHARO Prepare [id number] 23:54:00 Test Item Value Reference Range Interpretation Comments CROSSMATCH (test code = 2264) COMPATIBLE Unit ABO (test code = O Neg 9313343) UNIT NUMBER (test code = [id number] 934-0) Status (test code = 6187470) TX_TIMEINCHART Blood Bank Product (test code RED BLOOD CELLS = 2263) PRODUCT CODE (test code = R1552X81 933-2) [facility] [id number] 23:54:00 Test Item Value Reference Range Interpretation Comments Unit ABO (test code = O Pos 9195686) UNIT NUMBER (test code = [id number] 934-0) Status (test code = 6075732) [facility]TIMEIN[facility] Blood Bank Product (test code CRYOPRECIPITATE = 2263) PRODUCT CODE (test code = G9743L70 933-2) [facility] HospitalPrep[facility] [id number] 23:54:00 Test Item Value Reference Range Interpretation Comments Unit ABO (test code = 2744927) B Pos UNIT NUMBER (test code = [id number] 934-0) Status (test code = 0721599) [facility] Blood Bank Product (test code FFP = 2263) PRODUCT CODE (test code = N0157O23 933-2) [facility] HospitalPrepar [id number] 23:54:00 Test Item Value Reference Range Interpretation Comments Unit ABO (test code = 8362227) O Pos UNIT NUMBER (test code = [id number] 934-0) Status (test code = 0868369) [facility] Blood [facility] Product (test code PLATELETS = 2263) PRODUCT CODE (test code = F6017X15 933-2) [facility] HospitalAFB Culture IR w/[id number] 22:39:40 Test Item Value Reference Range Interpretation Comments Final Report (test No acid fast bacteria code = 8488) isolated at 8 weeks. Path Review - AFB Partial antibiotic (test code = 8477) treatment can render AFB culture negative. AFB culture has sensitivity of 90%.The results have been reviewed and electronically signed by Pathologist:RONI GRAHAM MD #[id number] Acid Fast Stain No Acid Fast Bacilli seen Truant (test code = in direct smear 93664-0) ANABELA (test code = Biliary drain ANABELA) MD PattersonPOCT-GLUCOSE [id number] 18:32:00 Test Item Value Reference Range Interpretation Comments POC-GLUCOSE METER 109 mg/dL 70-110 : TESTED A T [facility] 6720 (BEAKER) (test code = LUCY [place], 1538) [address]: Printing Sales Representative/Techni nael ID = [id number] for NW RANDA MAHER POCT-GLUCOSE [id number] 13:20:00 Test Item Value Reference Range Interpretation Comments POC-GLUCOSE METER 101 mg/dL 70-110 : TESTED A T [facility] 6720 (EDUARD) (test code = LUCY [place], 1538) [address]: Printing Sales Representative/Techni nael ID = [id number] for RANDA RIVAS SARS-COV2/RT-PCR ([facility])2020-07-22 10:28:00 Test Item Value Reference Range Interpretation Comments SARS-COV2/RT-PCR (test Negative Not Detected, Negative, code = 2145999) See external report for linked test SARS-COV-2 PERFORMING LAB [facility] DEZ (test code = 4434061) Negative result for this test determines that SARS-CoV-2 RNA was not present in the specimen above the Limit of Detection (LOD). However, Negative results do not preclude SARS-CoV-2 infection and should not be used as the sole basis for treatment or patient management decisions. Negative results mustbe combined with clinical observations, patient history, and epidemiological information. A false negative result may occur if a specimen is improperly collected, transported or handled. A false negative result should be considered if patient's recent exposures or clinical presentation indicate that COVID-19 (SARS-CoV-2) is likely and diagnostic tests for other causes of illness are negative. Re-testing should be considered in cases of suspected false negatives.The limit of detection for this assay is 800 copies/mL.This SARS CoV-2 test is a real-time RT-PCR test intended for the qualitative detection of nucleic acid from SARS-CoV-2 in a nasopharyngeal swab specimen collected from individuals susp ected of COVID-19 by their healthcare provider.This test has not been Food and Drug Administration (FDA) cleared or approved. This is a modified version of an approved Emergency Use Authorization (EUA) and is in the process of review by the FDA. Once authorized by the FDA, the issued EUA will be effective until the declaration that circumstances exist justifying the authorization of the emergency use of in vitro diagnostic tests for detection and/or diagnosis of COVID-19 is terminated under Section 564(b)(2) of the Act or the EUA is revoked under Section 564(g) of the Act.Fact Sheet for Healthcare Providers:https://www.[employer]/sites/default/files/product/documents/Fact_Shee v_ST_Sufwfjlvh_Eusk_FPTH-OdW-1.pdfFact Sheet for Healthcare Patients:https://www.[employer] [place]/sites/default/files/product/ documents/Ohrp_Tlaxv_Fyvuepgv_Pliw_PJDH-GoS-8.pdfPerforming Laboratory:[facility], [place] [address]EZNB-[id number] METER 2020-07-22 07:20:00 Test Item Value Reference Range Interpretation Comments POC-GLUCOSE METER 135 mg/dL 70-110 H : TESTED A T [facility] 6720 (BEAKER) (test code = LUCY Omer [facility], 1538) [address]: Printing Sales Representative/Techni nael ID = [id number] for NORRIS WEBB RAD, CHEST, 1 VIEW, NON [id number] 03:56:00Reason for exam:->post-opShould this be performed at the bedside?->Yes [facility] : 1945 Sex: FFINAL REPORT RAD, CHEST, 1 VIEW, NON DEPT INDICATION: post-op COMPARISON: Prior day's exam FINDINGS: Portable frontal view of the chest. IMPRESSION: Support Lines: [place]-Marcela catheter tip loops over the pulmonary outflow tract. NG tube tip overlies the GE junction for which advancement into the stomach is advised. Otherwise stable support apparatus. Lungs and pleura: St able retrocardiac opacity and blunted left costophrenic angle, likely atelectasis. No pneumothorax.Heart and mediastinum: Stable contours. Additional findings: None. Signed: Reji Kumar MDReport Verified Date/Time: 07/22/2020 03:56:59 PROTHROMBIN TIME/[id number] 02:40:00 Test Item Value Reference Range Interpretation Comments PROTIME (BEAKER) 14.6 seconds 11.9-14.2 H (test code = 759) INR (BEAKER) (test 1.16 See_Comment [Automat ed message] code = 370) The system [employer] generated this result transmitted ref erence range: <=5.90. The reference range was not used to int erpret this result as normal/abnormal . RECOMMENDED COUMADIN/WARFARIN INR THERAPY RANGESSTANDARD DOSE: 2.0 - 3.0 Includes: PROPHYLAXIS forvenous thrombosis, systemic embolization; TREATMENT for venous thrombosis and/or pulmonary embolus.HIGH RISK: Target INR is 2.5-3.5 for patients with mechanical heart valves.BASIC METABOLIC [id number] 02:40:00 Test Item Value Reference Range Interpretation Comments SODIUM (BEAKER) 140 meq/L 136-145 (test code = 381) POTASSIUM (BEAKER) 4.2 meq/L 3.5-5.1 (test code = 379) CHLORIDE (BEAKER) 107 meq/L 98-107 (test code = 382) CO2 (BEAKER) (test 22 meq/L 22-29 code = 355) BLOOD UREA NITROGEN 12 mg/dL 7-21 (BEAKER) (test code = 354) CREATININE (BEAKER) 0.79 mg/dL 0.57-1.25 (test code = 358) GLUCOSE RANDOM 166 mg/dL 70-105 H (BEAKER) (test code = 652) CALCIUM (BEAKER) 8.9 mg/dL 8.4-10.2 (test code = 697) EGFR (BEAKER) (test 86 mL/min/1.73 ESTIMA HORACIO GFR IS code = 1092) sq m NOT ACCURATE CREATININE CLEARANCE IN PREDICTING GLOMERULAR FILTRATION RATE . ESTIMATED GFR I S NOT APPLICABLE FOR DIALYSIS PATIEN TS. Printing Sales Representative ID - DAYANARA [id number] 02:40:00 Test Item Value Reference Range Interpretation Comments MAGNESIUM (BEAKER) (test code = 2.5 mg/dL 1.6-2.6 627) Printing Sales Representative ID - DAYANARA [id number] 02:40:00 Test Item Value Reference Range Interpretation Comments PARTIAL THROMBOPLASTIN TIME 31.9 seconds 22.5-36.0 (BEAKER) (test code = 760) CBC (HEMOGRAM ONLY)2020-07-22 02:24:00 Test Item Value Reference Range Interpretation Comments WHITE BLOOD CELL COUNT (BEAKER) 14.5 K/ L 3.5-10.5 H (test code = 775) RED BLOOD CELL COUNT (BEAKER) 2.93 M/ L 3.93-5.22 L (test code = 761) HEMOGLOBIN (BEAKER) (test code = 8.3 GM/DL 11.2-15.7 L 410) HEMATOCRIT (BEAKER) (test code = 25.7 % 34.1-44.9 L 411) MEAN CORPUSCULAR VOLUME (BEAKER) 87.7 fL 79.4-94.8 (test code = 753) MEAN CORPUSCULAR HEMOGLOBIN 28.3 pg 25.6-32.2 (BEAKER) (test code = 751) MEAN CORPUSCULAR HEMOGLOBIN CONC 32.3 GM/DL 32.2-35.5 (BEAKER) (test code = 752) RED CELL DISTRIBUTION WIDTH 17.5 % 11.7-14.4 H (BEAKER) (test code = 412) PLATELET COUNT (BEAKER) (test 209 K/CU MM 150-450 code = 756) MEAN PLATELET VOLUME (BEAKER) 10.1 fL 9.4-12.3 (test code = 754) NUCLEATED RED BLOOD CELLS 0 /100 WBC 0-0 (BEAKER) (test code = 413) BLOOD GAS, [id number] 02:17:00 Test Item Value Reference Range Interpretation Comments PH ARTERIAL (BEAKER) (test code = 7.46 7.35-7.45 H 383) PCO2 ARTERIAL (BEAKER) (test code 37 mm Hg 35-45 = 384) PO2 ARTERIAL (BEAKER) (test code = 166 mm Hg 80-90 H 385) O2 SATURATION ARTERIAL (BEAKER) 99.2 % 96.0-97.0 H (test code = 386) HCO3 ARTERIAL (BEAKER) (test code 25 mmol/L 21-29 = 388) BASE EXCESS ARTERIAL (BEAKER) 1.5 mmol/L -2.0-3.0 (test code = 387) PATIENT TEMPERATURE (BEAKER) (test 37.3 code = 1818) FIO2 (BEAKER) (test code = 1819) 40.0 OXYGEN SATURATION, [id number] 02:16:00 Test Item Value Reference Range Interpretation Comments O2 SATURATION (MEASURED) (BEAKER) 67.6 % (test code = 1455) POCT-GLUCOSE [id number] 01:06:00 Test Item Value Reference Range Interpretation Comments POC-GLUCOSE METER 159 mg/dL 70-110 H : TESTED A T [facility] 6720 (BEAKER) (test code = LUCY Omer [place], 1538) [address]: Printing Sales Representative/Techni nael ID = [id number] for NORRIS WEBB BASIC METABOLIC [id number] 17:38:00 Test Item Value Reference Range Interpretation Comments SODIUM (BEAKER) 139 meq/L 136-145 (test code = 381) POTASSIUM (BEAKER) 3.9 meq/L 3.5-5.1 (test code = 379) CHLORIDE (BEAKER) 107 meq/L 98-107 (test code = 382) CO2 (BEAKER) (test 23 meq/L 22-29 code = 355) BLOOD UREA NITROGEN 11 mg/dL 7-21 (BEAKER) (test code = 354) CREATININE (BEAKER) 0.69 mg/dL 0.57-1.25 (test code = 358) GLUCOSE RANDOM 195 mg/dL 70-105 H (BEAKER) (test code = 652) CALCIUM (BEAKER) 9.1 mg/dL 8.4-10.2 (test code = 697) EGFR (BEAKER) (test 101 mL/min/1.73 ESTIM ATED GFR IS code = 1092) sq m NOT ACCURATE CREATININE CLEARANCE IN PREDICTING GLOMERULAR FILTRATION RATE . ESTIMATED GFR I S NOT APPLICABLE FOR DIALYSIS PATIEN TS. 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 The reference range was not used to int erpret this result as normal/abnormal . RECOMMENDED COUMADIN/WARFARIN INR THERAPY RANGESSTANDARD DOSE: 2.0 - 3.0 Includes: PROPHYLAXIS forvenous thrombosis, systemic embolization; TREATMENT for venous thrombosis and/or pulmonary embolus.HIGH RISK: Target INR is 2.5-3.5 for patients with mechanical heart valves.CBC W/PLT COUNT & AUTO DIFFERENTIAL 2020-07-21 17:25:00 Test Item Value Reference Range Interpretation Comments WHITE BLOOD CELL COUNT (BEAKER) 14.7 K/ L 3.5-10.5 H (test code = 775) RED BLOOD CELL COUNT (BEAKER) 2.85 M/ L 3.93-5.22 L (test code = 761) HEMOGLOBIN (BEAKER) (test code = 8.0 GM/DL 11.2-15.7 L 410) HEMATOCRIT (BEAKER) (test code = 24.9 % 34.1-44.9 L 411) MEAN CORPUSCULAR VOLUME (BEAKER) 87.4 fL 79.4-94.8 (test code = 753) MEAN CORPUSCULAR HEMOGLOBIN 28.1 pg 25.6-32.2 (BEAKER) (test code = 751) MEAN CORPUSCULAR HEMOGLOBIN CONC 32.1 GM/DL 32.2-35.5 L (BEAKER) (test code = 752) RED CELL DISTRIBUTION WIDTH 17.1 % 11.7-14.4 H (BEAKER) (test code = 412) PLATELET COUNT (BEAKER) (test 169 K/CU MM 150-450 code = 756) MEAN PLATELET VOLUME (BEAKER) 10.2 fL 9.4-12.3 (test code = 754) NUCLEATED RED BLOOD CELLS 0 /100 WBC 0-0 (BEAKER) (test code = 413) NEUTROPHILS RELATIVE PERCENT 92 % (BEAKER) (test code = 429) LYMPHOCYTES RELATIVE PERCENT 3 % (BEAKER) (test code = 430) MONOCYTES RELATIVE PERCENT 4 % (BEAKER) (test code = 431) EOSINOPHILS RELATIVE PERCENT 0 % (BEAKER) (test code = 432) BASOPHILS RELATIVE PERCENT 0 % (BEAKER) (test code = 437) NEUTROPHILS ABSOLUTE COUNT 13.45 K/ L 1.56-6.13 H (BEAKER) (test code = 670) LYMPHOCYTES ABSOLUTE COUNT 0.46 K/ L 1.18-3.74 L (BEAKER) (test code = 414) MONOCYTES ABSOLUTE COUNT (BEAKER) 0.64 K/ L 0.24-0.36 H (test code = 415) EOSINOPHILS ABSOLUTE COUNT 0.00 K/ L 0.04-0.36 L (BEAKER) (test code = 416) BASOPHILS ABSOLUTE COUNT (BEAKER) 0.02 K/ L 0.01-0.08 (test code = 417) IMMATURE GRANULOCYTES-RELATIVE 1 % 0-1 PERCENT (BEAKER) (test code = 2801) BLOOD GAS, [id number] 17:22:00 Test Item Value Reference Range Interpretation Comments PH ARTERIAL (BEAKER) (test code = 7.57 7.35-7.45 H 383) PCO2 ARTERIAL (BEAKER) (test code 26 mm Hg 35-45 L = 384) PO2 ARTERIAL (BEAKER) (test code = 175 mm Hg 80-90 H 385) O2 SATURATION ARTERIAL (BEAKER) 99.4 % 96.0-97.0 H (test code = 386) HCO3 ARTERIAL (BEAKER) (test code 24 mmol/L 21-29 = 388) BASE EXCESS ARTERIAL (BEAKER) 2.1 mmol/L -2.0-3.0 (test code = 387) PATIENT TEMPERATURE (BEAKER) (test 37.2 code = 1818) FIO2 (BEAKER) (test code = 1819) 40.0 [id number] 14:48:00 Test Item Value Reference Range Interpretation Comments PARTIAL THROMBOPLASTIN TIME 33.0 seconds 22.5-36.0 (BEAKER) (test code = 760) POCT-GLUCOSE [id number] 14:34:00 Test Item Value Reference Range Interpretation Comments POC-GLUCOSE METER 167 mg/dL 70-110 H : TESTED A T [facility] 6720 (BEAKER) (test code = LUCY [place], 1538) [address]: Printing Sales Representative/Techni nael ID = [id number] for NW RANDA MHAER MISCELLANEOUS LAB [id number] 12:24:00 Test Item Value Reference Range Interpretation Comments SCAN RESULT (test code = 9016002) See scanned reportMISCELLANEOUS LAB [id number] 12:24:00 Test Item Value Reference Range Interpretation Comments SCAN RESULT (test code = 4313800) See scanned [id number] 12:24:00Scan ResultCHI [facility]ENTERee scanned reportCHI [facility] Medical CenterBASIC METABOLIC [id number] 10:16:00 Test Item Value Reference Range Interpretation Comments SODIUM (BEAKER) 139 meq/L 136-145 (test code = 381) POTASSIUM (BEAKER) 3.6 meq/L 3.5-5.1 (test code = 379) CHLORIDE (BEAKER) 106 meq/L 98-107 (test code = 382) CO2 (BEAKER) (test 23 meq/L 22-29 code = 355) BLOOD UREA NITROGEN 9 mg/dL 7-21 (BEAKER) (test code = 354) CREATININE (BEAKER) 0.59 mg/dL 0.57-1.25 (test code = 358) GLUCOSE RANDOM 199 mg/dL 70-105 H (BEAKER) (test code = 652) CALCIUM (BEAKER) 10.1 mg/dL 8.4-10.2 Discordant CALCIUM (test code = 697) result com pared to previous result ; clinical correl ation required EGFR (BEAKER) (test 120 ESTIMATE D GFR IS NOT code = 1092) mL/min/1.73 sq ACCURATE A S m CREATININE MARU SALMERON IN PREDICTING GLOMERULAR FILTRATION RATE . ESTIMATED GFR I S NOT APPLICABLE FOR DIALYSIS PATIEN TS. Printing Sales Representative ID - BSSpecimen slightly ictericRAD, CHEST, 1 VIEW, NON [id number] 10:16:00Reason for exam:->Post-opShould this be performed at the bedside?->[facility] : 1945 Sex: FFINAL REPORT RAD, CHEST, 1 VIEW, NON DEPT INDICATION: Post-op COMPARISON: None FINDINGS: Portable frontal view of the chest. IMPRESSION: Support Lines: [place]-Marcela tip overlies the pulmonary outflow tract. NG tube descends below the diaphragm. ET tube tip is 5 cm superior to the jessi. Right chest tube. Lungs and pleura: Left basilar atelectasis No pneumothorax.Heart and mediastinum: Normal contours.Additional findings: None. Signed: Bianca Harris Verified Date/Time: 07/21/2020 10:16:44 Reading Location: [facility] Radiology Reading Room [id number] 10:14:00 Test Item Value Reference Range Interpretation Comments MAGNESIUM (BEAKER) (test code = 2.8 mg/dL 1.6-2.6 H 627) Printing Sales Representative ID - [id number] 10:14:00 Test Item Value Reference Range Interpretation Comments PHOSPHORUS (BEAKER) (test code = 3.7 mg/dL 2.3-4.7 604) Printing Sales Representative ID - BSCBC W/PLT COUNT & AUTO [id number] 10:08:00 Test Item Value Reference Range Interpretation Comments WHITE BLOOD CELL COUNT 16.0 K/ L 3.5-10.5 H (BEAKER) (test code = 775) RED BLOOD CELL COUNT 3.17 M/ L 3.93-5.22 L (BEAKER) (test code = 761) HEMOGLOBIN (BEAKER) 9.1 GM/DL 11.2-15.7 L (test code = 410) HEMATOCRIT (BEAKER) 28.3 % 34.1-44.9 L (test code = 411) MEAN CORPUSCULAR 89.3 fL 79.4-94.8 VOLUME (BEAKER) (test code = 753) MEAN CORPUSCULAR 28.7 pg 25.6-32.2 HEMOGLOBIN (BEAKER) (test code = 751) MEAN CORPUSCULAR 32.2 GM/DL 32.2-35.5 HEMOGLOBIN CONC (BEAKER) (test code = 752) RED CELL DISTRIBUTION 17.0 % 11.7-14.4 H WIDTH (BEAKER) (test code = 412) PLATELET COUNT 192 K/CU MM 150-450 Discordant re sults (BEAKER) (test code = compar ed to 756) previous, clini babs correlation required. MEAN PLATELET VOLUME 9.5 fL 9.4-12.3 (BEAKER) (test code = 754) NUCLEATED RED BLOOD 0 /100 WBC 0-0 CELLS (BEAKER) (test code = 413) NEUTROPHILS RELATIVE 85 % PERCENT (BEAKER) (test code = 429) LYMPHOCYTES RELATIVE 10 % PERCENT (BEAKER) (test code = 430) MONOCYTES RELATIVE 4 % PERCENT (BEAKER) (test code = 431) EOSINOPHILS RELATIVE 0 % PERCENT (BEAKER) (test code = 432) BASOPHILS RELATIVE 0 % PERCENT (BEAKER) (test code = 437) NEUTROPHILS ABSOLUTE 13.51 K/ L 1.56-6.13 H COUNT (BEAKER) (test code = 670) LYMPHOCYTES ABSOLUTE 1.65 K/ L 1.18-3.74 COUNT (BEAKER) (test code = 414) MONOCYTES ABSOLUTE 0.69 K/ L 0.24-0.36 H COUNT (BEAKER) (test code = 415) EOSINOPHILS ABSOLUTE 0.03 K/ L 0.04-0.36 L COUNT (BEAKER) (test code = 416) BASOPHILS ABSOLUTE 0.03 K/ L 0.01-0.08 COUNT (BEAKER) (test code = 417) IMMATURE 1 % 0-1 GRANULOCYTES-RELATIVE PERCENT (BEAKER) (test code = 2801) PROTHROMBIN [id number] 10:05:00 Test Item Value Reference Range Interpretation Comments PROTIME (BEAKER) 17.0 seconds 11.9-14.2 H (test code = 759) INR (BEAKER) (test 1.41 See_Comment [Automat ed message] code = 370) The system [employer] generated this result transmitted ref erence range: <=5.90. The reference range was not used to int erpret this result as normal/abnormal . RECOMMENDED COUMADIN/WARFARIN INR THERAPY RANGESSTANDARD DOSE: 2.0 - 3.0 Includes: PROPHYLAXIS forvenous thrombosis, systemic embolization; TREATMENT for venous thrombosis and/or pulmonary embolus.HIGH RISK: Target INR is 2.5-3.5 for patients with mechanical heart valves.Calcium, [id number] 09:57:00 Test Item Value Reference Range Interpretation Comments Calcium, Ion (test code = 1994-3) 1.28 mmol/L 1.12-1.27 H pH, Blood (test code = 16831-4) 7.45 Lab Interpretation (test code = Abnormal 17716-3) [facility] [id number] 09:57:00 Test Item Value Reference Range Interpretation Comments Hemoglobin (test code = 9.8 See_Comment L [Au tomated message] 786-4) The system [employer] generated this result transmitted ref erence range: 12.0 - 1 5.0 GM/DL. The refe rence range was not u sed to interpret this result as normal/abnor mal. Hematocrit (test code = 29.0 % 36-45 L 4544-3) Lab Interpretation (test Abnormal code = 72513-3) [facility] [id number] 09:57:00 Test Item Value Reference Range Interpretation Comments Glucose (test code = 2345-7) 196 mg/dL 70-110 H Lab Interpretation (test code = Abnormal 75623-3) [facility] [id number] 09:57:00 Test Item Value Reference Range Interpretation Comments Potassium (test code = 2823-3) 3.3 meq/L 3.6-5.5 L Lab Interpretation (test code = Abnormal 73972-2) [facility], [id number] 09:57:00 Test Item Value Reference Range Interpretation Comments PH ARTERIAL (BEAKER) (test code = 7.49 7.35-7.45 H 383) PCO2 ARTERIAL (BEAKER) (test code 32 mm Hg 35-45 L = 384) PO2 ARTERIAL (BEAKER) (test code = 154 mm Hg 80-90 H 385) O2 SATURATION ARTERIAL (BEAKER) 99.2 % 96.0-97.0 H (test code = 386) HCO3 ARTERIAL (BEAKER) (test code 24 mmol/L 21-29 = 388) BASE EXCESS ARTERIAL (BEAKER) 0.3 mmol/L -2.0-3.0 (test code = 387) PATIENT TEMPERATURE (BEAKER) (test 34.2 code = 1818) FIO2 (BEAKER) (test code = 1819) 60.0 GLUCOSE-STAT [id number] 09:57:00 Test Item Value Reference Range Interpretation Comments GLUCOSE RANDOM (BEAKER) (test code 196 mg/dL 70-110 H = 652) POTASSIUM-STAT [id number] 09:57:00 Test Item Value Reference Range Interpretation Comments POTASSIUM (BEAKER) (test code = 3.3 meq/L 3.6-5.5 L 379) HGB/HCT (H&H) - STAT [id number] 09:57:00 Test Item Value Reference Range Interpretation Comments HEMOGLOBIN (BEAKER) (test code = 9.8 GM/DL 12.0-15.0 L 410) HEMATOCRIT (BEAKER) (test code = 29.0 % 36.0-45.0 L 411) CALCIUM, [id number] 09:57:00 Test Item Value Reference Range Interpretation Comments CALCIUM IONIZED (BEAKER) (test 1.28 mmol/L 1.12-1.27 H code = 698) PH, BLOOD (BEAKER) (test code = 7.45 1810) Sodium Na-Stat [id number] 09:56:00 Test Item Value Reference Range Interpretation Comments Sodium (test code = 2951-2) 137 meq/L 136-145 Lab Interpretation (test code = Normal 71054-4) [facility] [id number] 09:56:00 Test Item Value Reference Range Interpretation Comments SODIUM (BEAKER) (test code = 381) 137 meq/L 136-145 OXYGEN SATURATION, [id number] 09:56:00 Test Item Value Reference Range Interpretation Comments O2 SATURATION (MEASURED) (BEAKER) 79.4 % (test code = 1455) [id number] 09:14:00 Test Item Value Reference Range Interpretation Comments PARTIAL THROMBOPLASTIN TIME > seconds 22.5-36.0 HH (BEAKER) (test code = 760) CALCIUM, [id number] 09:09:00 Test Item Value Reference Range Interpretation Comments CALCIUM IONIZED (BEAKER) (test 1.31 mmol/L 1.12-1.27 H code = 698) PH, BLOOD (BEAKER) (test code = 7.37 1810) GLUCOSE-STAT [id number] 09:09:00 Test Item Value Reference Range Interpretation Comments GLUCOSE RANDOM (BEAKER) (test code 178 mg/dL 70-110 H = 652) POTASSIUM-STAT [id number] 09:09:00 Test Item Value Reference Range Interpretation Comments POTASSIUM (BEAKER) (test code = 2.8 meq/L 3.6-5.5 L 379) HGB/HCT (H&H) - STAT [id number] 09:09:00 Test Item Value Reference Range Interpretation Comments HEMOGLOBIN (BEAKER) (test code = 8.6 GM/DL 12.0-15.0 L 410) HEMATOCRIT (BEAKER) (test code = 25.0 % 36.0-45.0 L 411) BLOOD GAS, [id number] 09:09:00 Test Item Value Reference Range Interpretation Comments PH ARTERIAL (BEAKER) (test code = 7.40 7.35-7.45 383) PCO2 ARTERIAL (BEAKER) (test code 38 mm Hg 35-45 = 384) PO2 ARTERIAL (BEAKER) (test code 277 mm Hg 80-90 H = 385) O2 SATURATION ARTERIAL (BEAKER) 99.7 % 96.0-97.0 H (test code = 386) HCO3 ARTERIAL (BEAKER) (test code 24 mmol/L 21-29 = 388) BASE EXCESS ARTERIAL (BEAKER) -1.7 mmol/L -2.0-3.0 (test code = 387) PATIENT TEMPERATURE (BEAKER) 34.5 (test code = 1818) FIO2 (BEAKER) (test code = 1819) 100.0 SODIUM NA-STAT [id number] 09:08:00 Test Item Value Reference Range Interpretation Comments SODIUM (BEAKER) (test code = 381) 138 meq/L 136-145 [id number] 08:57:00 Test Item Value Reference Range Interpretation Comments Fibrinogen (test code = 3255-7) 217 mg/dl 225-434 L Lab Interpretation (test code = Abnormal 28484-1) [id number] 08:57:00 Test Item Value Reference Range Interpretation Comments FIBRINOGEN LEVEL (BEAKER) (test 217 mg/dl 225-434 L code = 658) PROTHROMBIN [id number] 08:57:00 Test Item Value Reference Range Interpretation Comments PROTIME (BEAKER) 33.0 seconds 11.9-14.2 H (test code = 759) INR (BEAKER) (test 3.27 See_Comment [Automat ed message] code = 370) The system [employer] generated this result transmitted ref erence range: <=5.90. The reference range was not used to int erpret this result as normal/abnormal . RECOMMENDED COUMADIN/WARFARIN INR THERAPY RANGESSTANDARD DOSE: 2.0 - 3.0 Includes: PROPHYLAXIS forvenous thrombosis, systemic embolization; TREATMENT for venous thrombosis and/or pulmonary embolus.HIGH RISK: Target INR is 2.5-3.5 for patients with mechanical heart valves.[id number] 08:47:00 Test Item Value Reference Range Interpretation Comments ACTIVATED CLOTTING TIME 120 sec : 74 -137 seconds, (BEAKER) (test code = Baseli ne: TESTED AT [facility]) [address], [facility] 30: Printing Sales Representative/Techni nael ID = [id number] for JULIO PERAZA [id number] 08:47:00 Test Item Value Reference Range Interpretation Comments ACTIVATED CLOTTING TIME > sec : 74 -137 seconds, (BEAKER) (test code = Baseli ne: TESTED AT 441) [address], [facility] 30: Printing Sales Representative/Techni nael ID = [id number] for SHERIF DICK [id number] 08:46:00 Test Item Value Reference Range Interpretation Comments ACTIVATED CLOTTING TIME > sec : 74 -137 seconds, (BEAKER) (test code = Baseli ne: TESTED AT 441) [address], [facility] 30: Printing Sales Representative/Techni nael ID = [id number] for NIDA SKINNER, SHERIF [id number] 08:46:00 Test Item Value Reference Range Interpretation Comments ACTIVATED CLOTTING TIME 978 sec : 74 -137 seconds, (BEAKER) (test code = Baseli ne: TESTED AT 441) [facility] [address] [facility] [place], [address] 30: Printing Sales Representative/Techni nael ID = [id number] for SHERIF DICK [id number] 08:46:00 Test Item Value Reference Range Interpretation Comments ACTIVATED CLOTTING TIME 626 sec : 74 -137 seconds, (BEAKER) (test code = Baseli ne: TESTED AT 441) [facility] [address] [facility], [address] 30: Printing Sales Representative/Techni nael ID = [id number] for SHERIF DICK Platelet [id number] 08:34:00 Test Item Value Reference Range Interpretation Comments Platelets (test code 106 See_Comment L [Autom ated = 777-3) message] The system which generated this result transmit horacio reference range : 150 - 450 K/CU MM. The reference range was not u sed to interpret th is result as normal/abnormal . ANABELA (test code = ANABELA) Printing Sales Representative ID - [id number] Lab Interpretation Abnormal (test code = 07042-1) [facility]ATE[facility] [id number] 08:34:00 Test Item Value Reference Range Interpretation Comments PLATELET COUNT (BEAKER) (test 106 K/CU MM 150-450 L code = 756) Printing Sales Representative ID - [id number] GAS, [id number] 08:16:00 Test Item Value Reference Range Interpretation Comments PH ARTERIAL (BEAKER) (test code = 7.43 7.35-7.45 383) PCO2 ARTERIAL (BEAKER) (test code 35 mm Hg 35-45 = 384) PO2 ARTERIAL (BEAKER) (test code 268 mm Hg 80-90 H = 385) O2 SATURATION ARTERIAL (BEAKER) 99.6 % 96.0-97.0 H (test code = 386) HCO3 ARTERIAL (BEAKER) (test code 23 mmol/L 21-29 = 388) BASE EXCESS ARTERIAL (BEAKER) -1.5 mmol/L -2.0-3.0 (test code = 387) PATIENT TEMPERATURE (BEAKER) 35.0 (test code = 1818) FIO2 (BEAKER) (test code = 1819) 100.0 POTASSIUM-STAT [id number] 08:16:00 Test Item Value Reference Range Interpretation Comments POTASSIUM (BEAKER) (test code = 2.8 meq/L 3.6-5.5 L 379) GLUCOSE-STAT [id number] 08:16:00 Test Item Value Reference Range Interpretation Comments GLUCOSE RANDOM (BEAKER) (test code 162 mg/dL 70-110 H = 652) HGB/HCT (H&H) - STAT [id number] 08:16:00 Test Item Value Reference Range Interpretation Comments HEMOGLOBIN (BEAKER) (test code = 7.3 GM/DL 12.0-15.0 L 410) HEMATOCRIT (BEAKER) (test code = 21.0 % 36.0-45.0 L 411) CALCIUM, [id number] 08:16:00 Test Item Value Reference Range Interpretation Comments CALCIUM IONIZED (BEAKER) (test 1.28 mmol/L 1.12-1.27 H code = 698) PH, BLOOD (BEAKER) (test code = 7.40 1810) SODIUM NA-STAT [id number] 08:15:00 Test Item Value Reference Range Interpretation Comments SODIUM (BEAKER) (test code = 381) 136 meq/L 136-145 PLATELET [id number] 08:00:00 Test Item Value Reference Range Interpretation Comments PLATELET COUNT (BEAKER) (test code 44 K/CU MM 150-450 L = 756) Printing Sales Representative ID - [id number] ID - [id number] ID - [id number] GAS, ARTERIAL 2020-07-21 07:53:00 Test Item Value Reference Range Interpretation Comments PH ARTERIAL (BEAKER) (test code = 7.45 7.35-7.45 383) PCO2 ARTERIAL (BEAKER) (test code 32 mm Hg 35-45 L = 384) PO2 ARTERIAL (BEAKER) (test code 252 mm Hg 80-90 H = 385) O2 SATURATION ARTERIAL (BEAKER) 99.6 % 96.0-97.0 H (test code = 386) HCO3 ARTERIAL (BEAKER) (test code 22 mmol/L 21-29 = 388) BASE EXCESS ARTERIAL (BEAKER) -2.0 mmol/L -2.0-3.0 (test code = 387) PATIENT TEMPERATURE (BEAKER) 35.3 (test code = 1818) FIO2 (BEAKER) (test code = 1819) 100.0 SODIUM NA-STAT [id number] 07:53:00 Test Item Value Reference Range Interpretation Comments SODIUM (BEAKER) (test code = 381) 134 meq/L 136-145 L POTASSIUM-STAT [id number] 07:53:00 Test Item Value Reference Range Interpretation Comments POTASSIUM (BEAKER) (test code = 3.2 meq/L 3.6-5.5 L 379) GLUCOSE-STAT [id number] 07:53:00 Test Item Value Reference Range Interpretation Comments GLUCOSE RANDOM (BEAKER) (test code 160 mg/dL 70-110 H = 652) HGB/HCT (H&H) - STAT [id number] 07:53:00 Test Item Value Reference Range Interpretation Comments HEMOGLOBIN (BEAKER) (test code = 8.6 GM/DL 12.0-15.0 L 410) HEMATOCRIT (BEAKER) (test code = 25.0 % 36.0-45.0 L 411) CALCIUM, [id number] 07:53:00 Test Item Value Reference Range Interpretation Comments CALCIUM IONIZED (BEAKER) (test 1.09 mmol/L 1.12-1.27 L code = 698) PH, BLOOD (BEAKER) (test code = 7.43 1810) [id number] 07:16:00 Test Item Value Reference Range Interpretation Comments FIBRINOGEN LEVEL (BEAKER) (test 109 mg/dl 225-434 L code = 658) BLOOD GAS, [id number] 06:52:00 Test Item Value Reference Range Interpretation Comments PH ARTERIAL (BEAKER) (test code = 7.39 7.35-7.45 383) PCO2 ARTERIAL (BEAKER) (test code 41 mm Hg 35-45 = 384) PO2 ARTERIAL (BEAKER) (test code 297 mm Hg 80-90 H = 385) O2 SATURATION ARTERIAL (BEAKER) 99.7 % 96.0-97.0 H (test code = 386) HCO3 ARTERIAL (BEAKER) (test code 25 mmol/L 21-29 = 388) BASE EXCESS ARTERIAL (BEAKER) -0.9 mmol/L -2.0-3.0 (test code = 387) PATIENT TEMPERATURE (BEAKER) 35.7 (test code = 1818) FIO2 (BEAKER) (test code = 1819) 70.0 GLUCOSE-STAT [id number] 06:52:00 Test Item Value Reference Range Interpretation Comments GLUCOSE RANDOM (BEAKER) (test code 162 mg/dL 70-110 H = 652) HGB/HCT (H&H) - STAT [id number] 06:52:00 Test Item Value Reference Range Interpretation Comments HEMOGLOBIN (BEAKER) (test code = 9.3 GM/DL 12.0-15.0 L 410) HEMATOCRIT (BEAKER) (test code = 27.0 % 36.0-45.0 L 411) SODIUM NA-STAT [id number] 06:51:00 Test Item Value Reference Range Interpretation Comments SODIUM (BEAKER) (test code = 381) 135 meq/L 136-145 L POTASSIUM-STAT [id number] 06:51:00 Test Item Value Reference Range Interpretation Comments POTASSIUM (BEAKER) (test code = 4.2 meq/L 3.6-5.5 379) BLOOD GAS, [id number] 06:31:00 Test Item Value Reference Range Interpretation Comments PH ARTERIAL (BEAKER) (test code = 7.43 7.35-7.45 383) PCO2 ARTERIAL (BEAKER) (test code 32 mm Hg 35-45 L = 384) PO2 ARTERIAL (BEAKER) (test code 340 mm Hg 80-90 H = 385) O2 SATURATION ARTERIAL (BEAKER) 99.8 % 96.0-97.0 H (test code = 386) HCO3 ARTERIAL (BEAKER) (test code 26 mmol/L 21-29 = 388) BASE EXCESS ARTERIAL (BEAKER) -2.3 mmol/L -2.0-3.0 L (test code = 387) PATIENT TEMPERATURE (BEAKER) 20.9 (test code = 1818) FIO2 (BEAKER) (test code = 1819) 63 POTASSIUM-STAT [id number] 06:30:00 Test Item Value Reference Range Interpretation Comments POTASSIUM (BEAKER) (test code = 5.1 meq/L 3.6-5.5 379) GLUCOSE-STAT [id number] 06:29:00 Test Item Value Reference Range Interpretation Comments GLUCOSE RANDOM (BEAKER) (test code 148 mg/dL 70-110 H = 652) HGB/HCT (H&H) - STAT [id number] 06:29:00 Test Item Value Reference Range Interpretation Comments HEMOGLOBIN (BEAKER) (test code = 7.2 GM/DL 12.0-15.0 L 410) HEMATOCRIT (BEAKER) (test code = 21.0 % 36.0-45.0 L 411) SODIUM NA-STAT [id number] 06:28:00 Test Item Value Reference Range Interpretation Comments SODIUM (BEAKER) (test code = 381) 134 meq/L 136-145 L HEPATIC FUNCTION [id number] 05:31:00 Test Item Value Reference Range Interpretation Comments TOTAL PROTEIN (BEAKER) (test code = 4.6 gm/dL 6.0-8.3 L 770) ALBUMIN (BEAKER) (test code = 1145) 1.7 g/dL 3.5-5.0 L BILIRUBIN TOTAL (BEAKER) (test code 1.3 mg/dL 0.2-1.2 H = 377) BILIRUBIN DIRECT (BEAKER) (test 0.9 mg/dL 0.1-0.5 H code = 706) ALKALINE PHOSPHATASE (BEAKER) (test 390 U/L 40-150 H code = 346) AST (SGOT) (BEAKER) (test code = 37 U/L 5-34 H 353) ALT (SGPT) (BEAKER) (test code = 26 U/L 6-55 347) Printing Sales Representative DOMINIQUE DAMICOTASSIUM-STAT [id number] 05:29:00 Test Item Value Reference Range Interpretation Comments POTASSIUM (BEAKER) (test code = 2.6 meq/L 3.6-5.5 LL 379) BLOOD GAS, [id number] 05:28:00 Test Item Value Reference Range Interpretation Comments PH ARTERIAL (BEAKER) (test code = 7.54 7.35-7.45 H 383) PCO2 ARTERIAL (BEAKER) (test code 24 mm Hg 35-45 L = 384) PO2 ARTERIAL (BEAKER) (test code 353 mm Hg 80-90 H = 385) O2 SATURATION ARTERIAL (BEAKER) 99.8 % 96.0-97.0 H (test code = 386) HCO3 ARTERIAL (BEAKER) (test code 24 mmol/L 21-29 = 388) BASE EXCESS ARTERIAL (BEAKER) -2.3 mmol/L -2.0-3.0 L (test code = 387) PATIENT TEMPERATURE (BEAKER) 21.6 (test code = 1818) FIO2 (BEAKER) (test code = 1819) 60.0 SODIUM NA-STAT [id number] 05:28:00 Test Item Value Reference Range Interpretation Comments SODIUM (BEAKER) (test code = 381) 133 meq/L 136-145 L GLUCOSE-STAT [id number] 05:28:00 Test Item Value Reference Range Interpretation Comments GLUCOSE RANDOM (BEAKER) (test code 141 mg/dL 70-110 H = 652) HGB/HCT (H&H) - STAT [id number] 05:28:00 Test Item Value Reference Range Interpretation Comments HEMOGLOBIN (BEAKER) (test code = 8.1 GM/DL 12.0-15.0 L 410) HEMATOCRIT (BEAKER) (test code = 24.0 % 36.0-45.0 L 411) ABORH, [id number] 04:14:00 Test Item Value Reference Range Interpretation Comments ABO Grouping (test code = 2588) O Rh Factor (test code = 2589) [facility]56:38RobchitoJulian Tyson 07/21/2020 8:39 AMTEE Date: 07/21/2020 3:56 AM Sex: Female Location: OR R equesting Physician: Maynor Moran MD Examiner: Frances Ryan MDRutherford, LerinElise Intubated Sedated Patient screened for esoph disease: Yes Insertion: easy Probe Type: multiplane Modalities: 2D, CFM, CWD and PWD Pre Intervention Summary: Aorta: Large dissection flap noted, extends from STJ to proximal descending, 3.8 Sinus, STJ effaced, max nikki 4.9. Flow visualized through intimal defect.AV: trileaflet morphology, no aortic stenosis, trace aortic regurgitationLV: normal chamber size , no LVH, normal systolic function (EF normal by qualitative assessment), no RWMA, nothrombusMV: normal morphology, trace mitral regurgitation, no mitral stenosisLA: no ALESSIA thrombus, normal size and functionPV: limited visualizationRV: normal sized chamber, normal function (TAPSE 19, good free wall motion), no thrombusTV: normal morphology, mild tricuspid regurgitation w/ PAC in placeRA: no thrombus no PFO by color dopper flow All findings communicated to surgical team. Post Interve ntion Follow-up Study: [place] Valve Fxn: No change Post Intervention Summary: S/p finn-arch repair Aortic valve with trace AI; No ASLV normal size and normal systolic function (EF 60% by qualitative assessment); No RWMA; No thrombusRV w/ normal function and normal TAPSE; No thrombusTrace MR; No SAMMild TRNo effusionCHI [facility] CenterBASI METABOLIC [id number] 03:42:00 Test Item Value Reference Range Interpretation Comments SODIUM (BEAKER) 135 meq/L 136-145 L (test code = 381) POTASSIUM (BEAKER) 3.3 meq/L 3.5-5.1 L (test code = 379) CHLORIDE (BEAKER) 105 meq/L 98-107 (test code = 382) CO2 (BEAKER) (test 24 meq/L 22-29 code = 355) BLOOD UREA NITROGEN 9 mg/dL 7-21 (BEAKER) (test code = 354) CREATININE (BEAKER) 0.49 mg/dL 0.57-1.25 L (test code = 358) GLUCOSE RANDOM 90 mg/dL 70-105 (BEAKER) (test code = 652) CALCIUM (BEAKER) 7.3 mg/dL 8.4-10.2 L (test code = 697) EGFR (BEAKER) (test 149 mL/min/1.73 ESTIM ATED GFR IS code = 1092) sq m NOT ACCURATE CREATININE CLEARANCE IN PREDICTING GLOMERULAR FILTRATION RATE . ESTIMATED GFR I S NOT APPLICABLE FOR DIALYSIS PATIEN TS. Printing Sales Representative ID - DAYANARA [id number] 03:41:00 Test Item Value Reference Range Interpretation Comments MAGNESIUM (BEAKER) (test code = 1.8 mg/dL 1.6-2.6 627) Printing Sales Representative ID - DAYANARA [id number] 03:41:00 Test Item Value Reference Range Interpretation Comments PHOSPHORUS (BEAKER) (test code = 3.2 mg/dL 2.3-4.7 604) Printing Sales Representative ID - DAYANARA MHGB/HCT (H&H) - STAT [id number] 03:36:00 Test Item Value Reference Range Interpretation Comments HEMOGLOBIN (BEAKER) (test code = 9.0 GM/DL 12.0-15.0 L 410) HEMATOCRIT (BEAKER) (test code = 26.0 % 36.0-45.0 L 411) BLOOD GAS, [id number] 03:36:00 Test Item Value Reference Range Interpretation Comments PH ARTERIAL (BEAKER) (test code = 7.49 7.35-7.45 H 383) PCO2 ARTERIAL (BEAKER) (test code 33 mm Hg 35-45 L = 384) PO2 ARTERIAL (BEAKER) (test code = 393 mm Hg 80-90 H 385) O2 SATURATION ARTERIAL (BEAKER) 99.8 % 96.0-97.0 H (test code = 386) HCO3 ARTERIAL (BEAKER) (test code 25 mmol/L 21-29 = 388) BASE EXCESS ARTERIAL (BEAKER) 1.3 mmol/L -2.0-3.0 (test code = 387) PATIENT TEMPERATURE (BEAKER) (test 36.0 code = 1818) FIO2 (BEAKER) (test code = 1819) 100.0 SODIUM NA-STAT [id number] 03:36:00 Test Item Value Reference Range Interpretation Comments SODIUM (BEAKER) (test code = 381) 133 meq/L 136-145 L POTASSIUM-STAT [id number] 03:36:00 Test Item Value Reference Range Interpretation Comments POTASSIUM (BEAKER) (test code = 2.9 meq/L 3.6-5.5 L 379) GLUCOSE-STAT [id number] 03:35:00 Test Item Value Reference Range Interpretation Comments GLUCOSE RANDOM (BEAKER) (test code = 94 mg/dL 70-110 652) [id number] 03:35:00 Test Item Value Reference Range Interpretation Comments PARTIAL THROMBOPLASTIN TIME 36.5 seconds 22.5-36.0 H (BEAKER) (test code = 760) PROTHROMBIN [id number] 03:34:00 Test Item Value Reference Range Interpretation Comments PROTIME (BEAKER) 16.0 seconds 11.9-14.2 H (test code = 759) INR (BEAKER) (test 1.30 See_Comment [Automat ed message] code = 370) The system [employer] generated this result transmitted ref erence range: <=5.90. The reference range was not used to int erpret this result as normal/abnormal . RECOMMENDED COUMADIN/WARFARIN INR THERAPY RANGESSTANDARD DOSE: 2.0 - 3.0 Includes: PROPHYLAXIS forvenous thrombosis, systemic embolization; TREATMENT for venous thrombosis and/or pulmonary embolus.HIGH RISK: Target INR is 2.5-3.5 for patients with mechanical heart valves.CBC W/PLT COUNT & AUTO DIFFERENTIAL 2020-07-21 03:23:00 Test Item Value Reference Range Interpretation Comments WHITE BLOOD CELL COUNT (BEAKER) 8.7 K/ L 3.5-10.5 (test code = 775) RED BLOOD CELL COUNT (BEAKER) 3.15 M/ L 3.93-5.22 L (test code = 761) HEMOGLOBIN (BEAKER) (test code = 8.5 GM/DL 11.2-15.7 L 410) HEMATOCRIT (BEAKER) (test code = 27.7 % 34.1-44.9 L 411) MEAN CORPUSCULAR VOLUME (BEAKER) 87.9 fL 79.4-94.8 (test code = 753) MEAN CORPUSCULAR HEMOGLOBIN 27.0 pg 25.6-32.2 (BEAKER) (test code = 751) MEAN CORPUSCULAR HEMOGLOBIN CONC 30.7 GM/DL 32.2-35.5 L (BEAKER) (test code = 752) RED CELL DISTRIBUTION WIDTH 18.2 % 11.7-14.4 H (BEAKER) (test code = 412) PLATELET COUNT (BEAKER) (test 225 K/CU MM 150-450 code = 756) MEAN PLATELET VOLUME (BEAKER) 9.5 fL 9.4-12.3 (test code = 754) NUCLEATED RED BLOOD CELLS 0 /100 WBC 0-0 (BEAKER) (test code = 413) NEUTROPHILS RELATIVE PERCENT 77 % (BEAKER) (test code = 429) LYMPHOCYTES RELATIVE PERCENT 16 % (BEAKER) (test code = 430) MONOCYTES RELATIVE PERCENT 7 % (BEAKER) (test code = 431) EOSINOPHILS RELATIVE PERCENT 0 % (BEAKER) (test code = 432) BASOPHILS RELATIVE PERCENT 0 % (BEAKER) (test code = 437) NEUTROPHILS ABSOLUTE COUNT 6.68 K/ L 1.56-6.13 H (BEAKER) (test code = 670) LYMPHOCYTES ABSOLUTE COUNT 1.35 K/ L 1.18-3.74 (BEAKER) (test code = 414) MONOCYTES ABSOLUTE COUNT (BEAKER) 0.56 K/ L 0.24-0.36 H (test code = 415) EOSINOPHILS ABSOLUTE COUNT 0.01 K/ L 0.04-0.36 L (BEAKER) (test code = 416) BASOPHILS ABSOLUTE COUNT (BEAKER) 0.03 K/ L 0.01-0.08 (test code = 417) IMMATURE GRANULOCYTES-RELATIVE 1 % 0-1 PERCENT (BEAKER) (test code = 2801) Folate, [id number] 18:46:21 Test Item Value Reference Range Interpretation Comments Folate, RBC 839 See_Comment Lab test perfor med (test code = by:Lab Mnem[facility] : 8855) [facility] [id number] [place] [id number] WALTER MD [Automated mess age] The system [employer] generated this result transmitted ref erence range: >280 ng/ mL RBC. The refere nce range was not u sed to interpret this result as normal/abnor mal. ANABELA (test code Please add to = ANABELA) existing lab appt MD PattersonXR Chest 1 View Post [id number] 15:10:04Right central catheter with its distal tip over the atriocaval junction and without evident pneumotho rax. Interface, Radiology Results In - 07/19/2020 10:12 AM CDT FULL RESULT:Examination: XR CHEST 1 VW POST IMPLANT, 07/19/2020 9:57 AMClinical History: Adenocarcinoma of transverse colonIndication: Check Central Line placementComparison: 2020Technique: Single portable anteroposterior radiograph of the chest.Findings:Right central catheter with its distal tip over the atriocaval junction. There is no pleural effusion or pneumothorax.Tortuosity of the aorta. Cardiac silhouette is normal. Partially imaged catheter in the upper abdomen .IMPRESSION:Right central catheter with its distal tip over the atriocaval junction and without evident pneumothorax.MD PattersonFL [facility] Cvhbdwjw7371-91-81 14:57:44This procedure requires no interpretation from the radiologist.MD PattersonINTRAOPERATIVE [id number] 13:24:13This procedure requires no interpretation from the radiologist.MD PattersonMD COVID-19 (ERIC-CoV-2) PCR [id number] 06:09:20 Test Item Value Reference Interpretation Comments Range COVID19 SARS Pre-Out of OR Procedure Indication (test code = 84857) COVID19 SARS Result Not Detected Not Detected (test code = 13665-4) COVID19 SARS SARS-CoV-2 NOT Detected. Interpretation (test Reference Range: Not code = 18272) Detected Methodology: The Wylie RealTime SARS-CoV-2 assay is a qualitative real-time reverse oil rigger polymerase chain reaction (hybrid tester-PCR) test to detect RNA from SARS-CoV-2 in nasal, nasopharyngeal and oropharyngeal swabs from patients with signs and symptoms of infection who are suspected of COVID-19 by their health care provider. The Wylie RealTime SARS-CoV-2 performed on the [employer]000 System is a dual target assay with primers and probes for the RdRp and N genes. Results must be interpreted within the context of all relevant clinical and laboratory findings, and epidemiological risk factors. Positive results are indicative of the presence of SARS-CoV-2 RNA; clinical correlation with patient history and other diagnostic information is necessary to determine patient infection status. Positive results do not rule out bacterial infection or co-infection with other viruses. Negative results do not preclude SARS-CoV-2 infection and should not be used as the sole basis for patient management decisions. The Wylie RealTime SARS-CoV-2 assay is for in vitro diagnostic use under FDA Emergency Use Authorization only. Testing is limited to laboratories certified under the Clinical Laboratory Improvement Amendments of 1988 (CLIA), 42U.S.C. 263a, to perform high complexity tests. The Test was performed by the CLIA-certified, high-complexity Molecular Diagnostics Laboratory (MDL) at [facility] (formerly [facility]) under the Food and Drug Administration (FDA) s Emergency Use Authorization. Factsheet for patients: https://www.[facility].org/ AbbottFactSheetPatientsFact sheet for healthcare providers: https://www.[facility].org/ AbbottFactSheetHCP Test performed by:[facility] Molecular Diagnostic [id number] [place] [address] [facility] Add-On [id number] 21:42:34 Test Item Value Reference Range Interpretation Comments Ordered (test code = 6568) Test Added Test Needed (test code = 7604) CMP MD PattersonVitamin B12 [id number] 20:40:07 Test Item Value Reference Range Interpretation Comments Vitamin B12 Lvl (test 805 pg/mL 211-946 code = 8017) ANABELA (test code = ANABELA) Please add to existing lab appt MD PattersonFerritin [id number] 20:30:37 Test Item Value Reference Range Interpretation Comments Ferritin Lvl (test code 107 ng/mL 13-150 = 5608) ANABELA (test code = ANABELA) Please add to existing lab appt MD PattersonTransferrin with [id number] 20:22:17 Test Item Value Reference Range Interpretation Comments Transferrin (test 170 mg/dL 200-360 L code = 7653) TIBC (test code = 238 See_Comment L [Automate d 6521) message] The system which generated this result transmit horacio reference range : 250 - 450 mcg/d L. The reference range was not u sed to interpret th is result as normal/abnormal . ANABELA (test code = ANABELA) Please add to existing lab appt Lab Interpretation Abnormal (test code = 63110-6) MD PattersonIron [id number] 20:22:16 Test Item Value Reference Range Interpretation Comments Iron (test code = 18 See_Comment L [Automate d 6027) message] The system which generated this result transmit horacio reference range : 37 - 145 mcg/dL . The reference range was not u sed to interpret th is result as normal/abnormal . ANABELA (test code = ANABELA) Please add to existing lab appt Lab Interpretation Abnormal (test code = 34473-2) MD PattersonHemoglobin [id number] 20:10:36 Test Item Value Reference Range Interpretation Comments A1C (test code = 4.3 % 4.3-5.6 HbA1c value s >=6.5% are 4632) diagnostic of d iabetes mellitus.Diagno sis should be confirmed by repeat testing.Therape utic Action suggested: >8.0 % HbA1c; Goal oftherapy: <7.0% HbA1c MD PattersonReticulocyte Count, [id number] 19:06:34 Test Item Value Reference Range Interpretation Comments Retic Cnt Auto (test code 3.3 % 0.5-1.5 H = 7199) RETHE (test code = 6973) 28.8 pg 23.2-37.5 IRF (test code = 5989) 21.1 % 2.6-16.7 H ANABELA (test code = ANABELA) Please add to existing lab appt Lab Interpretation (test Abnormal code = 04123-7) MD PattersonPathology Outside Mitzemldxbxsuk9767-77-95 15:02:29 Test Item Value Reference Range Interpretation Comments Materials Received (test o7uxxCNgQLMwfTSvNmNn code = 9973) MKYhDVXps7maIHPfqMTl ZzEwMzNcZnRuYmpcdWMx QYDiToZoo8mbc900vHLk a6yzJKHfVoL8bTJjUZWz sUUrK567BRHhTQhio6jz u3MoSGJbxCBqo2R4GUFX hotndCo7mSelW29sc4Z0 VpgpE5uiHYTqAAEzK1Xr CO2kHYHgDbc7PRG2HGW8 XCKfLYNvI0AkHL2aCUXv fFAqZLq0t4braEaaINIz AZR5v0ffQNxahsPpYE2z ka5rrCr8j8yvoaFrITVo JREpcVLMOXUvC6FemFyw Go9wpCx2kKlbShbwKLD6 Hyn8GU7csf96sgp7lEkg OUCycdawBdD1SBydAIWs xhjiPJg8PMeoNDDrnVdk MFxtYXJncjcyMFxtYXJn nWP9DFAlzXSzO6ZcUXGl APuhVSAtwbx8CzKkXq6s iYLdeTjjKUdtk8dke4pn cJPcMyp7ZCRuGyZbAsly MPwcf1Skb8isEECawx7w VIQ9yJDwjTeon6S2sQNy FQDcwHLjcpOkVVTrqc70 vCFfrQPpsHIupl6zdeHf fMBocMStCLC3lMYecqCx HMRujZFuHPYfTG4usYKo XFMsmW2kntypJBXjWhNj voycQOLbpPtzbcHqIm6k aBytYHP2DNtyL5wmtI5q KvE5HFyeW3wqaJ5zUXq5 QSiovGG2XNRcxW4uPC5t yxfbh5mtXuThKF0lppih v8cnOwCwIJ0ydwf6m6ib DEU6HXvuMOLcBtP8rsA5 NDBcaGVhZGVyeTcyMFxm l037IGE4AbTnHGXsc8Qf Z2YvjZzsB95trXztL67w NHSjjZiubT1jhUanrX8a NqJqHcRdLIc4dg15LTn9 bqhpaNitHJo7nrDaOGBj TMK0JRErdGYoURPrL0r8 bnJgMBXxOEM8LUUdfOKr TMTvS1m5blSlCUL2EUb8 cnBhZGRmdDNcdHJwYWRk YjBcdHJwYWRkZmIzXHRy eSMbdFVhoNYngD9vgUcd QERmbJIfvG8bHEP1RSLj cmgzMjBcdHJoZHJcbHRy eu12IPFeuyNdsFGtnTxy hHIuNZG6BHGrBFIgWOFp OLX6JBCrGtJhbzIiJLmd bGJyZHJiXGJyZHJzXGJy KOV7IYYiVhXdovYnAXfh bGJyZHJsXGJyZHJzXGJy IFL6BGNnErGznfZePOog bGJyZHJyXGJyZHJzXGJy LKF1AJJxYkCuhzMpROtj bHBhZHQxMFxjbHBhZGZ0 C5elcQWiHXZhWUptuAMc AGOoL6vhlACsWJjxXPQx cGFkZmwzXGNscGFkYjBc H9ljUDLxSsAeK9VzdRw8 MDAwXGNsdmVydGFsdFxj cTEiZWU6NHOnKWBmPGMd UBE6IDWnRkYcpdGbDGue bGJyZHJiXGJyZHJzXGJy NKY3NOLpUlYyeoRqWRva bGJyZHJsXGJyZHJzXGJy DZJ1YCIzZvZrwlYcZTni bGJyZHJyXGJyZHJzXGJy OWK6OVTuHdLxezCsTIqy bHBhZHQxMFxjbHBhZGZ0 G2pfbRJxACZwKFppgDYc BEPxZ5damZBxYQpqVHIw cGFkZmwzXGNscGFkYjBc D9inMTZhWvQeM0OeuVl0 NjAwXGNsdmVydGFsdFxj zEIcKRB9VDTvNFCiEWKw HYE1ESWxYdOyyrCvAUgo bGJyZHJiXGJyZHJzXGJy YWS0WBFdHtJrhbHfOCkw bGJyZHJsXGJyZHJzXGJy UYM6EWUlWxDtntYfNGpm bGJyZHJyXGJyZHJzXGJy VUF3XVMdXnOfldZhZVkf bHBhZHQxMFxjbHBhZGZ0 Y6xxvLVeJPYvODikdJWm WJCtR5vcbHXoLGtmYAKb cGFkZmwzXGNscGFkYjBc Q5gxVXYjBhRcC6BohVt1 NtBkYPVzctVejA56Qfuk z1KnKSAiKES5AGhmEGut bFxwbGFpblxmMVxmczIw ZCwmlocvWLKmCVtoB6yv BjAsQQMwrGwrGPuag5Et XGYxXGNmMlxmczIwXGIg HUGnJNQbnW1yVunxP5Hs wE5gCDmoSxfxM4hvGYKd r0VkhD4yBZwcnMMrpecb MVxmczIwXGxhbmcxMDMz LWrrB0ioBrSlXOBvnVba COysl6AyEJWsEONuVcmv cmSsUCi6ipArKCYagTdg lLLeBTczjfKxxMayy4Ts ysTofWdfUWCyEXi7ghQs dlynhCo6qRFgoBevXGRu sBbauD8yXyFhVhTcEQxj bGFpblxmMVxmczIwXGxh rbfpAQCzEDjgX7tuWnLd CTOzaYwcOPoaa0LjYJSs PZUxAfooqlRgWDJoA98p bGVjdGVkXHBsYWluXGYx XGZzMjBcbGFuZzEwMzNc aGljaFxmMVxkYmNoXGYx SSqfW2bgXbZaE8KcKZGr CmPqkGVfL3zjA9VroFrk YXJkXGludGJsXHNzcGFy VKM9qQZrrtFwmBAiwUUm JXYmBYsuWUB3rKMshhlp yYSywvrtHEuzrlP3NMYr YWluXGYxXGZzMjBcbGFu ZzEwMzNcaGljaFxmMVxk EdGmBPHcTEazB6voCkLf E7UhCGNlGlSqXqSLULCl aXZlZFxwbGFpblxmMVxm czIwXGxhbmcxMDMzXGhp O1wqYcNdLIRugGuoBTjx l3ApNEOhYMMkJgrojtTe DBl3ruGwMWZcuBtsbV47 Qscpab44OCUio0lcROLw U7TdfCVmAJHufDVxXSse MDhcdHJwYWRkZmwzXHRy cGFkZHIxMDhcdHJwYWRk ZnIzXHRycGFkZHQwXHRy vJHePNB3H3b4czKcOELz CMp1vwYlAIBaOdLyjEZg VLS5ZMn6OxbhqeU5jOOd G5e3BvwfslCpCWbggYZx xj53WCIufvSimYEjtWno qDUyVPU2MSQqWYPnQGEg BNZ9NCGtIjYvlsKgQVli bGJyZHJiXGJyZHJzXGJy JIR8ATReRdTuwoUoLPiw bGJyZHJsXGJyZHJzXGJy IQD0QKWdEfMcaeUdOCyy bGJyZHJyXGJyZHJzXGJy KKP3BOSpYiWrtqMvSAxf bHBhZHQxMFxjbHBhZGZ0 I6oudSBdOFTjEJmuqEBd VXObL2kuaLOkQLhxWMCq cGFkZmwzXGNscGFkYjBc J2quDLBoUuQqA6VwkPf6 MDAwXGNsdmVydGFsdFxj oCZhXZP3YSDsUMIrQGEc OXD7QXDnAaTikgWoSCpv bGJyZHJiXGJyZHJzXGJy SIF4RBJsDdCjblFtUFzw bGJyZHJsXGJyZHJzXGJy AMI9BHAhZiRiknOnTYig bGJyZHJyXGJyZHJzXGJy VGB5MIWvUkDklsVbJRds bHBhZHQxMFxjbHBhZGZ0 E6ogqYReLZQvEMbieTPx NGBaO7gseRJfNOioEOBq cGFkZmwzXGNscGFkYjBc C1oyBHGgSfZaV6OtjMg8 NjAwXGNsdmVydGFsdFxj eMEbJOT6NQQxLABhACHk LOI7WICtQsTkjzBkNAix bGJyZHJiXGJyZHJzXGJy KPK4XENiCmRqptCfFYzh bGJyZHJsXGJyZHJzXGJy LKC0VDNlDfPpnlDuCLwp bGJyZHJyXGJyZHJzXGJy JIP0TMJeAzOygeShXIyq bHBhZHQxMFxjbHBhZGZ0 D5dfgPCaKNBiYAoecQEn KZXgX8xjaZPkZEpyBYEt cGFkZmwzXGNscGFkYjBc O7hyCXMxAnYtS2KtoPp7 NsYgKMLztpVopY53Frvp v8WqJUTaJGO8JOmoGJkl bFxwbGFpblxmMFxmczI0 XHBsYWluXGYxXGZzMjBc bGFuZzEwMzNcaGljaFxm XCmqOpBtXNTuYJydO4gb LqQlG9WlFMMuCiRjPF0b JBroNN6tOIn5QUqbKQZH ViyjLLYRKU0CU8XqDIQm VVNTXHBsYWluXGYxXGZz MjBcbGFuZzEwMzNcaGlj aFxmMVxkYmNoXGYxXGxv I2tdKoJuU5XhNTYdWuIa vRBwQ3xxV3CclKcyJLUf XGludGJsXHNzcGFyYWF1 gYSfagCdbZuhoSuafJ6d ZjBcZnMyNFxwbGFpblxm MVxmczIwXGxhbmcxMDMz WTqnH5fzXjYjTFSdaDhf FJxjk7ZeZGVrFKCvRpmq czIwIDIvMjMvMjAyMVxw bGFpblxmMVxmczIwXGxh ejkcQLJhPObtQ6lgJhMy FWGmpJheKBiil4WxOCAw UHTpMpywcqCzYGc0vuYv XGNlbGxccGFyZFxpbnRi rYvoo2FxgmHhtFfsPHEl XHFsXHBsYWluXGYwXGZz EuDwjOfkuI4nEkZzNmGx TVjwJK7uTIEqU7hkaEQj CIGtMSKxT7brUmYhrR5x aFxmMVxjZjJcZnMyMCAz JpQ2YzCyJqIfaIwfeT3p HlMdDuNsVCveRA6qTPAd K5ncqYZdZQEaLJVtL8hd EiYonJ8vuPxtLVfbCaMs ZnMyMFxsdHJjaFxjZWxs KXtzoUGyAZApa2rnUDEe VVCmhYZnMLD5wFClbkHm aZifuHdvdU9nTvMxPmZa NFxwbGFpblxmMVxmczIw LEtizlryZOBqNObqU5oc NgThPQKqoZyxYEurx2Ft XGYxXGZzMjBccGFyfQ== Addendum 2 (test code = v7nthKLuSKShtKS9QYLh 38) ZITmb8djw3KuwRJtzIOd NAsrnXEntwZqub56kXE7 xY06HG5nZLQlVkO4QUZr fdZ1Ktq3PBJiUQGsmQLb X485t6eno0sldcXbyIQ9 mVkiYWFxmgpvWnE3YOde TWOrbpycIGr9YSylOHIb tNA3LTQquDHgP9WnOXRz FF0kmyn8OPM5DWpaMJZp DtK0MJMzmONvBQMtoKhe NTkjy467UUH8WbXpXRVu lfJtoSfjyD7jEfNaQIZN mUEwvXBbc9BlW3OdhYVn a6WzHp56uJA8arIcu5Ja joPcBEYyoT9sIV7ew1Il ZNKsLETtELKlCTJ8v5Aj R21ccZGecERsurXxOhyv o0tvouAzWGRrpO7nUWQf kLEtBNXhMVN6hTVyq5Vr n24yKe0cUOGsAEEmcHHz YXRjaCByZXBhaXIgcHJv xLRtxkIhGQqRRVysTX6C CdogSHDEZzpkRA3zHH7Y QTRkTQGmbk9fyP2bZRVv qO74DQWqb1CbKpbjmOE7 HPTayqCngBbcWD0sU6Dj g0G6FYrjtQDaEUgqe2Lv OcxwqSQ4HejwPQMrdHUo FUoxpFBex5gyx3ZzX7jm yKkjMOkig0ChjT5aDv3b BVxTQd0jS09xoNUqfvHv VSozyBq3XKYaw2PdmlYw ILakfK2hTa42mXT9oJ8f cjVgLWWyBA7iBPTtPdDq XHBhcn0= Addendum 1 (test code = a0hcdVUjLIXunKY5GwWa 37) IVQhb9gpi5KrzSJtqTOr PGyifCLprmRrdt12oPJ3 uK14OT2cUHDhOaE7VQBp feB7Lrp7AMKsVMEroTQm I908v9meo6loxwTbwPU7 fVxwYXJkXHBsYWluXGZz UaTvZADjaCWdz71nkZVt YXRlcmlhbCByZWNlaXZl KRLlcnU4MfZrWeHoAnAt MS54mGVyUWJyDKZqOVRc lX4qZrknQAupQM8yPPt3 GNsgXGQSWzacEIRWJH5V RkhjPqGcFLWDXOIir4zg BTZ1CWFyv75tCy2mZb6s MDIxLiBccGFyIEFkZGl0 yL6nOSnxaCR2MTZvGVsv dfYcEDm9HCHuc79lQMVu DTNzNtAxWEhyU6D6m4pi MMTBY8Pqw8Cjc23lKxKW TDIxLTAwODgwLCAwIFNT KBEyBGCTY4UZYNOyZFDI X5GoOCLfsTuzR7GhFWMq iyLtXm0yXa1mDCYrTnio YXJccGFyXHBhclxwYXJ9 Diagnosis (test code = f0acrCCzWGNezGM7RbIs 34) WPXzk6dte2BciZOhjOXm QNbrdOMangRfcj51aNR9 zX35HC6dVWSpNwJ7ASYl joO6Gky6RTRiJFHngIDp R910x5peo4gbmfUgfGR9 fVxwYXJkXHBsYWluXGZz MsCvVuy6ACTepAXxaWKk EIQcuPXobgAdJMxlMP6s AWv1RCddQ06wmCFntFNi BE8wBEGhKvOvRyIgJVg1 MEJfhywzVPPboTm8LlRg iDqmGpUoOGCpMMKvqN2z GDO2yzUrt7IvqnLeTG5s w5QiGHPiy2BagBFeTXXc eDQpOlxwYXJcbGkyMTYw LFVvPOifCCnfcL9uUJZm HHwTGjFKFYEWCZ7XMVPH DQVEOYsiVCmTUoCOVG0G HSTEWOLrSGUKGm8CELIG RM2TRQOcWPPhfceqDNJx mBp1LxAhKvckACpbgjdw CHUEPxKHm2hnhqcfjvZt eQ9ufJegg6fkJS5bj0Ji CTJev1UmjJTyUnInUnxl YXJcdGFiIElOVkFTSVZF PE1BXBVZULBWYVyhLKsX OuTOWT6KOVMJLFIyKMQY Ow1PPWBXDR0BNEYlTLPa cn0= Disclaimer (test code = n8icjILwPHNssMAeScVr 9844) YFPfMTRhn2paSYGukMMg ZzEwMzNcZnRuYmpcdWMx ULFzXtEcx2ddk841pTUw n5hhWNImAqW9nGWiOISk lETsV293EUUtOUtuy2ej f6HsPAAcvHSvl4S3CZPV vpddqXe5yPwlK42qu1E3 LskcW1wnWQItEWSlV9Bt LI1dKWDmWdi6GYW3PZX2 DTWrPMYvP3LqCN7aOAZh yINmYOl2q7hvbCidIUZv JXY9p8owDMvresKgYA3m za5pcHy6a3wuyqRhAICx OBXswSYBLHSzX4QpjGzd Ne7pyOr7oYymVnctINH3 Cys3UP1wpe73tly1oXmg HPGuvcqjHxX1NWiaVVCc skdxOJf3RTacKDXgyAU3 DZIdnHZiG5DnKWLqPT7h sls4ACV6BGvbXUHbBbA5 NDBcaGVhZGVyeTcyMFxm n514RLG7PzWvRI5dB8By v5Y2oI2kuIHfQBHkjMMm MkEsDVTtae9lxYOsETvb b2ZsKWD4rvS7cTFbrHAy SALqJQ69Rpjmq4EkIfir EOX2MVHgxwAsi5Nua4lh CsAbcwGdP6hfP3EsKJIs TMQkONQkAbGkhcDri0Kv v7XraMWmbRz8a0rxQPHh SMDueHbxn0esPXP5AKSt Z1X4qDXnc9qdEDheTNKi cQF5xhP5EOFqsIZwR9Zo lP1xYTYnWD2rspi5s8lm OQG7ATsyHJEpPfT0zrA3 NDBcaGVhZGVyeTcyMFxm d413ZBN7XaHiBAPla7Qj C6CnwUxhM06saRlfC80r IWOtiIwemB1wbZxppN6z ZjBcZnMyNFxxbFxwbGFp prrfVYzeicY5RSfpcrif NKKiYMshL0xdRzYdNOUw jXomPMgch6OpNWKdIJTn SukjkvA6WKQHt26vLKVl y8BeEBUqcJ6yyWLcDRwu xoJwiOQ9VJjxpbXyJtWk pmPjZLWvyX4dLSNjOX5o FPFqfcOkvm1jhvDxMABg CZOtK1PyavvsbYmtmjHo ZUFlrf2bzxSnTYC9WPGM WM3XMHJbKYTet24aOPOz kEollJ8diRMmurCoAEWe w2KwqH0ncYISRLQhN9lu VX7yZUsga9XmxHPgqZMj jIK1GMYec0YdJpUrvuUy xIPehOSnY9AyiIrnE9js DPAbZIJcddClmNKry3Uc NOVolAM9bRQxIB8GVrDJ r91lUGVaUEJJofVvCTDt wUbxpZP2qaI6eS4sVhMF ZiBhcHBsaWNhYmxlLCBj a398cz7csiT8GWMqSDDg sjtih5WhWXIyVOTdnD02 DUFxZQSnde6zfhqvoNMu gfLqH4Snths1wQ8dBFBs YWluXGYxXGZzMjJcbGFu ZzEwMzNcaGljaFxmMVxk XzGlFBNpVHlgE1tbLwAb ZnMyMlxwYXJ9 MD Ott BRAF Mutation Interpretation and Ofpszp2905-18-03 20:13:17 Test Item Value Reference Range Interpretation Comments Archived Material Previously diagnosed (test code = 06503) tissues from [place] [address] were selected for molecular analysis. Results will be reported separately. MD Ott KRAS Interpretation and Ayhbkc8844-77-65 20:13:07 Test Item Value Reference Range Interpretation Comments Archived Material Previously diagnosed (test code = 75693) tissues from [place] [address] were selected for molecular analysis. Results will be reported separately. MD Ott MSI by PCR with interpretation and lckcef7752-46-07 20:13:01 Test Item Value Reference Range Interpretation Comments Archived Material Previously diagnosed (test code = 13100) tissues from [place] [address] were selected for molecular analysis. Results will be reported separately. MD Ott NRAS Mutation Interpretation and Ydwgye0031-46-87 20:12:56 Test Item Value Reference Range Interpretation Comments Archived Material Previously diagnosed (test code = 92153) tissues from [place] [address] were selected for molecular analysis. Results will be reported separately. MD Ott NTRK1 Fusion Analysis with Interpretation and [id number] 20:12:51 Test Item Value Reference Range Interpretation Comments Archived Material Previously diagnosed (test code = 67777) tissues from [place] [address] were selected for molecular analysis. Results will be reported separately. MD Ott NTRK2 Fusion Analysis with Interpretation and Gzlkqn0798-06-51 20:12:41 Test Item Value Reference Range Interpretation Comments Archived Material Previously diagnosed (test code = 96027) tissues from [place] [address] were selected for molecular analysis. Results will be reported separately. MD Ott NTRK3 Fusion Analysis with Interpretation and Iniuui1435-74-30 20:12:36 Test Item Value Reference Range Interpretation Comments Archived Material Previously diagnosed (test code = 94541) tissues from [place] [address] were selected for molecular analysis. Results will be reported separately. MD Ott PIK3CA Mutation Analysis Interpretation and Izagtj7579-31-37 20:12:31 Test Item Value Reference Range Interpretation Comments Archived Material Previously diagnosed (test code = 40218) tissues from [place] [address] were selected for molecular analysis. Results will be reported separately. MD Sanchezngus Culture IR w/Joouv1885-65-53 19:59:59 Test Item Value Reference Range Interpretation Comments Final Report (test No fungus isolated at 4 code = 8488) weeks. Path Review - Fungus Culture yield may be (test code = 8479) affected by sample quality, prior treatment, and transportation conditions. The results have been reviewed and electronically signed by Pathologist:Rad Sepulveda MD, PhD #[id number] Calcofluor Stain No Fungi seen in direct (test code = 658-5) smearTest performed by fluorescent stain methodology. ANABELA (test code = ANABELA) Biliary drainCultures are held for 4 weeks before finalization. MD Chavarria KRAS Mutation Analysis with Interpretation and Report - Liquid Biopsy genotyping when no tumor tissue is [id number] 20:33:39 Test Item Value Reference Range Interpretation Comments Molecular Diagnostics (Received) (test Yes code = 8400) MD Chavarria BRAF Mutation Analysis with Interpretation and Report - Liquid Biopsy genotyping when no tumor tissue is locbmrlze3865-24-56 20:33:38 Test Item Value Reference Range Interpretation Comments Molecular Diagnostics (Received) (test Yes code = 8400) MD Chavarria APC Mutation Analysis with Interpretation and Report - Liquid Biopsy genotyping when no turmor tissue is hfytljtbl7900-08-66 20:33:37 Test Item Value Reference Range Interpretation Comments Molecular Diagnostics (Received) (test Yes code = 8400) MD PattersnoX-ray Chest 2 [id number] 17:44:05FINDINGS and IMPRESSION: 1. Right PICC tip cavoatrial junction. 2. Heart not enlarged with moderate tortuosity descending thoracic aorta. 3. No pneumothorax or pleural effusion. 4. Tubing overlyingupper abdomen partially visualized. 5. No suspicious osseous findings. Interface, Radiology Results In - 06/09/2020 12:46 PM CDT FULL RESU LT:Examination: XR CHEST 2 VW, 06/09/2020 12:24 PMClinical History: Rectal cancerIndication: Confirm PICC placementComparison: 05/11/2020Technique: Posteroanterior, lateral and dual-energy radiographs of the chest.IMPRESSION:FINDINGS and IMPRESSION:1. Right PICC tip cavoatrial junction.2. Heart not enlarged with moderate tortuosity descending thoracic aorta.3. No pneumothorax or pleural effusion.4. Tubing overlying upper abdomen partially visualized.5. No suspicious osseous findings.MD PattersonAnaerobic Culture Interventional [id number] 01:30:21 Test Item Value Reference Range Interpretation Comments Final Report (test No growth code = 8488) Path Review - Culture yield may be Anaerobe (test code affected by sample = 8478) quality, prior treatment, and transportation conditions....The results have been reviewed and electronically signed by Pathologist:Christopher Cassidy MD, PhD #[id number] ANABELA (test code = Biliary drain ANABELA) MD Pat[id number] 15:23:45 Test Item Value Reference Range Interpretation Comments Prealbumin-M (test code 4 mg/dL 19-38 L Sadie t Performed = 45782-2) by:[facility] [facility] [address], [place], [place] [address]Mdr Dir gerardo: Dilan amos M.D. Ph.D.; CLI A# [id number] Lab Interpretation (test Abnormal code = 86166-8) MD PattersonInterventional Radiology Culture w/Gram [id number] 20:37:19 Test Item Value Reference Range Interpretation Comments Final Report (test No growth code = 8488) Path Review (test The results have been code = 8492) reviewed and electronically signed by Pathologist:Rad Sepulveda MD, PhD #[id number] Gram Stain Report Few WBC's seenNo organisms (test code = seen. 31756-7) ANABELA (test code = Biliary drain ANABELA) MD [id number] 17:15:36 Test Item Value Reference Range Interpretation Comments CRP (test code = 58.44 mg/L Reference r helenes for HS 5235) CRP assay are a s follows: Reference range s when used to assess cardi ac risk: <1.00 mg/L Low cardiovascular risk 1.00-3.00 mg/L Average cardiovascular risk >3.00 mg/L High cardi ovascular risk.Reference ranges when used to assess inflammatory re sponses: Less than or eq ual to 10.00 mg/L. 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 Operative Findings: Percutaneous image-guided exchange of left external biliary drainage catheter and conversion to internal external biliary drain Consent: The procedure, risks, indications and alternatives were explained. All questions were answered and informed consent was obtained. I have reviewed the history and physical dictated by the mid-level practitioner / fellow. Sedation/Anesthesia:Anesthesia provided by Anesthesia Department. Procedure in Detail: A time out was performed prior to the start of the procedure and the correct patient, procedure, presence of consent, site, and side were confirmed with all members of the team. The patient was placed in a supine position on the fluoroscopy table and the upper abdomen and catheter were prepped and draped in the usual sterile fashion. Lidocaine 1% was used for local anesthesia. A tile sprayer view was obtained of the abdomen and catheter. A cholangiogram was performed through the catheter(s). The existing 10 Filipino left external biliary catheter was cut and was exchanged overa wire for a new 10 Filipino extended side-hole biliary catheter which was formed in the duodenum. Thecatheter was secured to the skin with suture. Additional Comments: High grade stenosis was crossed u sing a microcatheter system. Estimated Blood Loss: Minimal Specimens Removed: NoImmediate Complications: None Disposition: PACU Plan: Catheter to gravity drainage until bilirubin levels normalize or trend down adequately. Then cap for internal drainage. Return for routine exchange in 2 months I certify my physical presence at the time of the procedure. I personally reviewed the image(s) and the resident's / fellow's interpretation and agree with the written report. [facility] Chem [id number] 14:00:14 Test Item Value Reference Range Interpretation Comments POC NA (test code = 138 See_Comment [Automa horacio message] 71040-9) The system [employer] generated this result transmitted ref erence range: 138 - 14 6 mEq/L. The refe rence range was not u sed to interpret this result as normal/abnor mal. POC K (test code = 3.6 See_Comment Method de scription: 53766-3) The i-STAT is a n analyzer used f or in vitro quantific ation of various anal ytes in whole blood. The device uses a s roman disposable cart ridge which contains microfabricated sensors, a calibration noel ution, fluidics system , and a waste chamber . Each test cartridge contains chemic ally sensitive biose nsors on a Stupeflix ip that are config ured to perform spec ific tests. The microfabricated sensors measure analyte concent ration by an electroch emical assay. [Automa horacio message] The sy stem which generated this result transmit horacio reference range : 3.5 - 4.9 mEq/L. Th e reference range was not used to int erpret this result as normal/abnormal . POC CL (test code = 99 See_Comment [Automa horacio message] 2068-04) The system [employer] generated this result transmitted ref erence range: 98 - 109 mEq/L. The refe rence range was not u sed to interpret this result as normal/abnor mal. POC VTCO2 (test code 30 See_Comment H [Autom ated message] = 2026-02) The system [employer] generated this result transmitted ref erence range: 24 - 29 mEq/L. The reference r shayla was not used to interpret this result as normal/abnor mal. POC BUN (test code = 10 mg/dL 09-30 6299-2) POC Crea (test code 0.5 mg/dL 0.6-1.3 L Medicati ons, = 58158-8) especially hydroxyurea or supplements, siddiqui ch as ascorbate, can interfere with test results causing a falsely and significantly h igher result than exp ected. If a problem is suspected with a patient's resul t, a sample should b e sent to the laborato for confirmatory te sting. Method descript ion: The i-STAT is a n analyzer used f or in vitro quantific ation of various anal ytes in whole blood. The device uses a s roman disposable cart ridge which contains microfabricated sensors, a calibration noel ution, fluidics system , and a waste chamber . Each test cartridge contains chemic ally sensitive biose nsors on a Stupeflix ip that are config ured to perform spec ific tests. The microfabricated sensors measure analyte concent ration by an electroch emical assay. POC eGFR-AA (test 110 See_Comment Normal eGF R >= 60 code = 92453-9) mL/min/1.73 m2 The eGFR is calcula horacio using the CKD-E PI equation. The e GFR declines with a ge. eGFR <60 mL/min /1.73 m2 is considere d as "decreased" Thi s equation should only be used for pat ients 18 and older. According to th e National Kidney Foundation's Ki dney Disease Outcome Quality Initiat raad (KDOQI) classification and 2012 Kidney Dis ease Improving Globa l Outcomes (KDIGO ) Clinical Practi ce Guideline, the stage of CKD should b e categorized bas ed on estimated GFR. Stage Description GFR mL/min/1.73 m21 Kidney damage w ith normal or high GFR >=902 Kidney d amage with mild decre ase in GFR 60-893a Mild to moderate dec rease in GFR 45-5 93b Moderate to sev ere decrease in GFR 30-444 Severe decrease in GFR 15-295 Kidney f ailure <15 (or nikki lysis) [Automated mes vaughn] The system whic i[employer] generated this result transmitted ref erence range: >=60 mL/min/1.73 m2. The reference range was not used to int erpret this result as normal/abnormal . POC eGFR-ERIC (test 95 See_Comment Normal eG FR >= 60 code = 45475-1) mL/min/1.73 m2 The eGFR is calcula horacio using the CKD-E PI equation. The e GFR declines with a ge. eGFR <60 mL/min /1.73 m2 is considere d as "decreased" Thi s equation should only be used for pat ients 18 and older. According to e National Kidney Foundation's Ki dney Disease Outcome Quality Initiat raad (KDOQI) classification and 2012 Kidney Dis ease Improving Globa l Outcomes (KDIGO ) Clinical Practi ce Guideline, the stage of CKD should b e categorized bas ed on estimated GFR. Stage Description GFR mL/min/1.73 m21 Kidney damage w ith normal or high GFR >=902 Kidney d amage with mild decre ase in GFR 60-893a Mild to moderate dec rease in GFR 45-5 93b Moderate to sev ere decrease in GFR 30-444 Severe decrease in GFR 15-295 Kidney f ailure <15 (or nikki lysis) [Automated mes vaughn] The system [employer] generated this result transmitted ref erence range: >=60 mL/min/1.73 m2. The reference range was not used to int erpret this result as normal/abnormal . POC Glucose (test 85 mg/dL 70-99 code = 42623-6) POC Ion Ca (test 1.13 mmol/L 1.12-1.32 code = 09807-5) POC Hct (test code = 27.0 % 38.0-51.0 L 20691-8) POC Hgb (test code = 9.2 See_Comment L Hematoc rit values 718-7) from the iSTAT are determined conductometrica lly, which may be af fected by WBC count, l evels of total protei n, lipids, or sodi um. The hemoglobin result is calculated b ased on the correspo nding measured hemato crit and assumes a n ormal MCHC. If there is a discrepancy bet ween the results fro m iSTAT and conventional laboratory meth od, the result from conventional me thod should be consi dered the accurate standard. [Aut omated message] The sy stem which generated this result transmit horacio reference range : 12.0 - 17.0 gm/dL. T he reference range was not used to int erpret this result as normal/abnormal . POC Sample Type Venous (test code = 6690) POC Clean Dev (test Yes code = 6672) Performing Lab (test MDA Main Main Ca mpus code = 37118) [facility], [address], [facility] [place] [address]; [employer]olt Assembler: Emi Escamilla MD Lab Interpretation Abnormal (test code = 10659-7) MD PattersonPartial Thromboplastin [id number] 12:17:21 Test Item Value Reference Range Interpretation Comments PTT (test code = 33.4 See_Comment [Automated message] The 6753) system which ge nerated this result transmit horacio reference range : 24.7 - 36.8 second(s). The reference range was not used to interpr et this result as emilee l/abnormal. MD PattersonIR PLACEMENT BILIARY DRAINAGE CATHETER (EXTERNAL)2020-05-27 14:05:16 Date of Procedure: 05/26/20 Attending Physician: Dr. 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 Operative Findings: Percutaneous image-guided placement of left external biliary drainage catheter(s). Consent: The procedure, risks, indications and alternatives were explained. All questions were answered and informed consent was obtained. I have reviewed the history and physical dictated by the mid-level practitioner / fellow. Sedation/Anesthesia: Anesthesia provided by Anesthesia Department. Procedure in Detail: A time out was performed prior to the start of theprocedure and the correct patient, procedure, presence of consent, site, and side were confirmed with all members of the team. The patient was placed in a supine position on the fluoroscopy table and the upper abdomen and right flank were prepped and draped in the usual sterile fashion. Lidocaine 1% was used for local anesthesia. Under real time ultrasound guidance, a 22 gauge needle was advanced into an appropriate peripheral biliary radical, confirmed by contrast administration. An image was obtained and placed into the patient's image file. A cholangiogram was performed and an 0.018 inch wire was advanced into the biliary system. A Kateryna set was used to scale up the access and a 0.035 inch wire was negotiated into the left biliary system and the biliary obstruction was not attempted to be crossed. The tract was dilated to accept a 8 Filipino Ramírez Arroyo catheter which was formed in a peripheral left hepatic bile duct. The catheter was secured to the skin with suture. Additional Comments: Small amount of purulent material was obtained after obtaining access. This was submitted for microbiology. Estimated Blood Loss: Minimal Specimens Removed: Yes - Sample sent to Microbiology. Immediate Complications: None Disposition: PACU Plan: Catheter to gravity drainage until further notice. We will attempt conversion to internal/external catheter next week. Please refer to separate endoscopy report for endoscopic procedure. I certify my physical presence at the time of the procedure. I personally reviewed the image(s) and the resident's / fellow's interpretation and agree with the written report.MD Webber [id number] 06:40:23 Test Item Value Reference Range Interpretation Comments Free T3 (test code = 7478) 1.4 pg/mL 2.0-4.4 L Lab Interpretation (test code = Abnormal 56115-0) MD Webber [id number] 06:40:22 Test Item Value Reference Range Interpretation Comments T4 Free (test code = 7502) 1.16 ng/dL 0.93-1.70 MD [id number] 06:40:21 Test Item Value Reference Range Interpretation Comments TSH (test code = 0.67 See_Comment [Automated message] The 7578) system which ge nerated this result transmit horacio reference range : 0.27 - 4.20 mcunit/mL. The reference range was not used to interpr et this result as emilee l/abnormal. MD PattersonENDOSCOPY NOTE [id number] 23:42:39Blanca Soares MD - 05/26/2020 6:42 PM CDT Patient Name: Carla ChakrabortysaGender: FemaleMRN: [id number]: 74Procedure Date No Time: 05/26/2020Instrument Name: [id number] [id number]-[id number],2792 TJ- [id number](s): BLANCA SOARES MD, SURENDRA OLIVARES MD (Fellow)Procedure Name: ERCPScope In: 6:55:29 PMScope Out: 7:27:57 PMTotal Procedure Duration Time 0 hours 32 minutes 28 seconds Patient Profile: This is a 74 year oldfemale with metastatic colon cancer to the liver with bile duct obstruction who presents for stent revision. His last ERCP on 05/12/2020 showed CHD and RHD stricture with plastic stent placement on the RHD. Partial stent migration is suspected. GIven increasing liver tests patient is also referred for percutaneous biliary drainage of left liver in interventional radiology roomIndications: Persistent jaundice, bile duct obstruction, metastatic colorectal cancer, recent ERCP 05/12/2020 with right sided stent placement, increased liver tests, partial migration of previous stent suspected, left sided percutaneous biliary drain planned in IR (performed inIR). Also abnormal imaging / outside endoscopy esophagus.Medications: General Anesthesia, on antibioticsProcedure Description: Pre-Anesthesia Assessment:Prior to the procedure, a History and Physical was performed, and patient medications and allergies were reviewed. The patient's tolerance of previous anesthesia was also reviewed. The risks and benefits of the procedure and the sedation options and risks were discussed with the patient. All questions were answered, and informed consent was obtained. Prior Anticoagulants: The patient has taken no anticoagulant or antiplatelet agents. ASA Grade Assess ment: III - A patient with severe systemic disease. After reviewing the risks and benefits, the patient was deemed in satisfactory condition to undergo the procedure. Informed consent was obtained. Throughout the procedure, the patient's blood pressure, pulse, and oxygen saturations were monitored continuously. Patient was on supine position. The Olympus GIF-HQ190 ([id number]) upper endoscope - (9.9 mm dm) was introduced through the mouth, and advanced to the second duodenum. Careful inspection was performed on withdrawal. Then the Olympus TJF-Q180V ([id number]) sideviewing duodenoscope was introduced and ERCP was performed with findngs as below. The ERCP was accomplished without difficulty. The patient tolerated theprocedure well.Findings: The standard esophagogastroduodenoscopy scope was used for the examination of the upper gastrointestinal tract. A small, subepithelial nodule measuring ~1 to 1.5 cm with normal, smooth overlying mucosa was seen at ~31cm. The nodule was soft and compressible with benign apperance / possible cystic although EUS was not performed. The remainder of the esophagus appeared unremarkable. The squamocolumnar line was at the esophagogastric junction 42 cm from the incisors. The stomach distended well with air ins ufflation. The mucosa of the gastric body and antrum appeared unremarkable. The examined duodenum appeared unremarkable. The distal end of the previously placed right sided double pitail stent was seen emanating from the ampulla The right sided plastic biliary stent and new left sided PTC drain was visible on the tile sprayer film. The plastic stent was removed from the biliary tree using a snare. The ampulla was evident for prior biliary sphincterotomy. The sphincterotomy appeared open. Cannulation of the common bile duct was readily achieved using a balloon cathete rand a 0.035 inch angled Glidewire which was passed into the right biliary tree. Multiple balloon sweeps were performed with the 8.5 and 11.5 mm balloon with extraction of small sludge. Contrast was injected. I personally interpreted the bile duct images. Ductal flow of contrast was adequate. Image qualitywas adequate. The common hepatic duct and right main hepatic duct contained irregular stenoses. The injected intrahepatics were minimally dilated. No contrast was injected on the Left hepatic system. The common duct was dilated. One [employer] 10 Fr by 7 cm double pigtail plastic stent was placed into the right system. Bile flowed through the stent. The stent was in good position.Complications: No immediate complications.Estimated Blood Loss: Estimated blood loss was minimal.Post Procedure Diagnosis: - Approximate ~1-1.5cm non-obstructing subepthilial nodule with overlying normal mucosa and soft, compressible, benign features / likely cystic process although EUS not performed - Unremarkable sto mach - Unremarkable examined duodenum - Previouslyplaced right sided double pitail stent emanating from the ampulla - removed - Ampulla with evidence of prior biliary sphincterotomy - Irregular stricture involving CHD and RHD as before - Placement new 10Fr x 7cm double pigtail stent into right systemRecommendation: - The patient will be observed post-procedure, until all discharge criteria are met. - [facility]. - Clear liquid diet today. - Advance diet as tolerated. - Continue present medications. - Levaquin (levofloxacin) 500 mg PO daily for 3 days. - Repeat ERCP in 3 months to exchange stent. - Right sided percutaneous external biliary drain in situAttending Participation: I personally performed the entire procedure.BLANCA SOARES MD05/27/2020 8:42:49 AMThis report hasbeen signed electronically.Number of Addenda: 0MD AndersonOccult Blood [id number] 15:13:32 Test Item Value Reference Range Interpretation Comments Fecal Occult Bld (test Positive Negative A Test performed by code = 5604) latex immunoass ay methodology. Lab Interpretation (test Abnormal code = 13948-9) MD AdamsSA Screening [id number] 00:56:09 Test Item Value Reference Range Interpretation Comments Final Report (test No Methicillin resistant code = 8488) Staphylococcus aureus isolated. Path Review (test The results have been code = 8492) reviewed and electronically signed by Pathologist:RONI GRAHAM MD #[id number] ANABELA (test code = Nasal - R is on the label. ANABELA) 05/12/2020 11:15:11 AM CDT. MD Ott NGS Blood [id number] 19:19:57 Test Item Value Reference Range Interpretation Comments Molecular Diagnostics (Received) (test Yes code = 8400) MD PattersonENDOSCOPY NOTE [id number] 21:59:21Lee, Roni Guerrier MD - 05/12/2020 4:59 PM CDTFormatting of this note might be different from the orig inal.Patient Name: Carla ChakrabortysaGender: FemaleMRN: [id number]: 74Procedure Date No Time: 05/12/2020Instrument Name: 2792 [id number](s): RONI GUERRERO MD, SURENDRA OLIVARES MD (Fellow)Procedure Name: ERCPScope In: 5:38:14 PMScope Out: 6:34:45 PMTotal Procedure Duration Time 0 hours 56 minutes 31 seconds Patient Profile: This delicia 74 year old female with a history of metastatic colon cancer, presentingwith obstructive hyperbilirubinemia. Here today for ERCPIndications: Jaundice, Bile Duct ObstructionMedications: General Anesthesia, CO2, Indomethacin 100 mg KS, Levaquin 500 mg IVProcedure Description: Pre-Anesthesia Assessment: - Prior to the procedure, a History and Physical was performed, and patient medications and allergies were reviewed.The patient's tolerance of previous anesthesia was also reviewed. The risks and benefits of the procedure and the sedation o ptions and risks were discussed with the patient. All questions were answered, and informed consent was obtained. Prior Anticoagulants: The patient has taken no previous anticoagulant or antiplatelet agents. ASA Grade Assessment: III - A patient with severe systemic disease. After reviewing the risks and benefits, the patient was deemed in satisfactory condition to undergo the procedure. Informed consent was obtained. Throughout the procedure, the patient's blood pressure, pulse, and oxygen saturations were monitored continuously. The Olympus TJF-Q180V ([id number]) sideviewing duodenoscope was introduced through the mouth, and advanced to the duodenum and used to inject contrast into the bile duct. The ERCP was accomplished without difficulty. The patient tolerated the procedure well.Findings: The tile sprayer film was normal. The major papilla was normal. A 0.035 inch straight Glidewire was passed into the biliary tree. The short-nosed traction sphincterotome was passed over the guidewire and the bile duct was then deeply cannulated. Contrast was injected. I personally interpreted the bile duct images. Ductal flow of contrast was adequate. Image quality was adequate. The hepatic duct bifurcation and right main hepatic duct contained localizedstenoses. The left hepatic system was not accessed or contrasted. Biliary sphincterotomy was made with a monofilament traction (standard) sphincterotome using ERBE electrocautery. There was no post-sphincterotomy bleeding. Dilation of the right main hepatic duct with a 6 mm by 40 mm balloon dilator was successful. One 10 Fr by 7 cm double pigtail plastic stent was placed into the right hepatic duct. Bile flowed through the stent. The stent was in good position.Complications: No immediate complications.Estimated Blood Loss: Estimated blood loss was minimal.Post Procedure Diagnosis: - The major papilla appeared normal. - Localized biliary strictures were found in the bifurcation and right main hepatic d uct. Left hepatic system was not accessed - A biliary sphincterotomy was performed. - The bifurcation and right main hepatic duct was successfully dilated. - One 10 Fr by 7 cmdouble pigtail plastic stent was placed into the right hepatic duct.Recommendation: - The patient will be observed post-procedure, until all discharge criteria are met. - [facility]. - Clear liquid diet today. - Advance diet as t olerated. - Levaquin (levofloxacin) 500 mg PO daily for 3 days.Attending Participation: I was present and participated during the entire procedure, including non-pope portions.RONI GUERRERO MD05/12/2020 7:07:36 PMThis report has been signed electronically.Number of Addenda: 0MD PattersonFL ENDOSCOPY [id number] 21:51:44This procedure requires no interpretation from the radiologist.MD PattersonProcalcitonin 2020-05-12 14:34:14 Test Item Value Reference Range Interpretation Comments Procalcitonin (test 0.16 ng/mL See_Comment H Procalci tonin > 2.00 code = 9379) ng/mL: Procalcitonin l evels above 2.00 ng/m L are highly suggesti ve of a high risk for systematic bact erial infection/ rsaheeda re sepsis and/or s eptic shock. Procalci tonin < 0.50 ng/mL: Procalcitonin l evels below 0.50 ng/m L are at low risk for progression to severe sepsis and/ or septic shock. Procalci tonin (ProCT) between 0.15 and 2.0 ng/mL d o not exclude infecti on, because localiz ed infections (wit hout systemic signs) may be associated w ith such low levels . Results greater than 400 ng/mL may n ot be reliable due to the matrix effect w ith extended diluti on as it exceeds the cattle dealer's recommended gotti it. Caution should be exercised when interpreting siddiqui ch values and done in conjunction wit h clinical contex t. [Automated mess age] The system [employer] generated this result transmitted ref erence range: <=0.08. The reference range was not used to int erpret this result as normal/abnormal . Lab Interpretation Abnormal (test code = 94552-6) MD PattersonIR IVC FILTER [id number] 23:27:20Date of Procedure: 05/11/20 Attending Physician: Reuse Technician: Dilan Graff Pre Procedure Diagnosis: Acute dvt of lower leg [[id number]] Post Procedure Diagnosis: Unchanged Indication: Venous thromboembolism and contraindication for anticoagulation Title of Procedure:Percutaneous fluoroscopic Image-Guided Inferior Vena Cava Filter Placement. Operative Findings: Technically successful insertion of aan Option Elite in the infra-renal IVC. Consent: The procedure, risks, indications and alternativeswere explained. All questions were answered and informed consent was obtained. I have reviewed the history and physical dictated by the mid-level practitioner / fellow. Sedation/Anesthesia: Moderate sedation for pain control and anxiety was administered by a dedicated nurse under my supervision. There was continuous monitoring of oxygen saturation, heart rate and intermittent monitoring of bloodpressure during the procedure. Medication given was midazolam and fentanyl. I was present for theadministration of the medications indicated above.Procedure Events Event Event Time Sedation Start 05/11/2020 3:32 PM Sedation End 05/11/2020 4:45 PM Procedure in Detail: Relevant prior imaging was reviewed. A time out was performed prior to the start of the procedure and the correct patient, procedure, presence of consent, site, and side were confirmed with all members of the team. Prophylactic Antibiotic administered: None Preparation: The site was prepared and draped using maximal sterile barrier technique including cutaneous antisepsis with 2% chlorhexidine. Ultrasound evaluation of the access site demonstrated a patent and compressible vein. With the patient in the supine position, the skin overlying the access site was prepped and draped in the usual sterile fashion. Lidocaine 1% was used for local anesthesia. Under ultrasound imaging guidance a 21 gauge needle was advanced into theright internal jugular and the access site was scaled up to accept a Micropuncture transition dilator. An image was obtained and placed into the medical record. A guidewire was advanced into the venous system under fluoroscopic-guidance and a 5 Filipino flush catheter was advanced into the left common iliac vein, followed by digital subtraction venography of the inferior vena cava and its major branches. Indication for Venography: Document IVC size and anatomy and determine level of renal vein inflowFindings: IVC Patency: PatentIVC Size: Normal (up to 30mm)IVC Anatomy: Low insertion of right renalvein The access site was then scaled up to accept the filter delivery system and the filter was deployed in the inferior vena cava with fluoroscopic guidance. All catheters and wires were removed from the patient and hemostasis was achieved using manual compression. Sterile dressing was applied. Contrast: IOHEXOL 300 MG IODINE/ML INTRAVENOUS SOLUTION - 50 mL Additional Comments: None Estimated BloodLoss: Minimal Specimens Removed: No Immediate Complications: None Disposition: PACU Plan: The type of filter inserted was intended for potential retrieval. The optimal window for successful retrieval is within 3 months of insertion. I certify my physical presence at the time of the procedure. I personally reviewed the image(s) and the resident's / fellow's interpretation and agree with the written report.MD Cardoza Interpretation Transfusion [id number] 21:20:41 Test Item Value Reference Range Interpretation Comments TMP TXN RXN UNKNOWN Interp (test PATHOPHYSIOLOGY code = 7564) . Please see __SABAS Delaney,Dictated consult note in by: SABAS Steele OneConnedilip. KISHA,Dictated D ate/Time: 05.11.2020 16:2 0 PM CDT Transcribed [place] e/Time: 05.11.2020 16:2 0 PM CDTElectronical ly Signed By: SABAS HUGHES, on 05.11.2020 16:2 0 PM MD Noyola Leg Venous Doppler [id number] 19:01:54 Left distal popliteal vein partially occlusive thrombus.Findings were discussed with Dr. Grimm at2:00 PM, 05/11/2020 Interface, Radiology Results In - 05/11/2020 2:04 PM CDT FULL RESULT:Examination: US LEG VENOUS DOPPLER BILATERAL, 05/11/2020 12:53 PMClinical History: Rectal cancerIndication: Previous DVT Comparison: None available.Technique: Grayscale and color/spectral Doppler ultrasound of the bilateral lower extremity veins was performed.Findings: A focal nonocclusive thrombus is in the left distal popliteal vein. Left common femoral, femoral veins demonstrate color flow, compressibility, and response to augmentation.The right common femoral, femoral, and popliteal veins demonstrate color flow, compressibility, and response to augmentation. The visualized posterior tibial, peroneal and anterior tibial veins are patent and compressible.IMPRESSION:Left distal popliteal vein partially occlusive thrombus.Findings were discussed with Dr. Grimm at 2:00 PM, 05/11/2020MD [facility]BAR[facility] Interpretation Manual Antibody Screen [id number] 14:51:44 Test Item Value Reference Range Interpretation Comments TMP Neg ABSC At the present Interp (test time, patient code = 7558) plasma shows no ____BRITTANY ALMODOVAR evidence of RBC [address] MD alloantibodies. - [id number] horacio by: BRITTANY LOPEZ MD - [id number] Date/Time: 9:51 AM CDT Transcribed [place] e/Time: 05.11.2020 9:51 AM CDTElectronical ly Signed By: BRITTANY LOPEZ MD - [id number] on 9:51 AM C MD PattersonAntibody Screen [id number] 13:33:32 Test Item Value Reference Range Interpretation Comments ABSC Interp (test code = 890-4) Negative ABSC MD PattersonXR Chest 1 [id number] 13:30:52 No acute pulmonary process. Enlarged heart with dilated and tortuous thoracic aorta. Interface, Radiology Results In - 05/11/2020 8:33 AM CDT FULL RESULT:Examination: AP Portable Chest, 1 view, 05/11/2020 5:28 AMClinical History: Rectal cancerIndication: Chest pain, Negative COVID-19 Test ResultComparison: Chest CT 05/10/2020Technique: Single portable anteroposterior radiograph of the chest.Findings:Patient positioning is lordotic. The lungs are adequately inflated. No acute consolidation. No pleural effusion or pneumothorax.The heart is top normal in size. The ascending thoracic aorta is dilated and the descending thoracic aorta is tortuous. IMPRESSION:No acute pulmonary process. Enlarged heart with dilated and tortuous thoracic aorta.MD PattersonABORh [id number] 13:04:05 Test Item Value Reference Range Interpretation Comments ABORh Manual (test code = 882-1) O NEG MD PattersonNT-Pro BNP (In-House)2020-05-11 12:59:55 Test Item Value Reference Range Interpretation Comments NT ProBNP (test code 275 pg/mL See_Comment [Autom ated message] The = 0385) system which ge nerated this result tra nsmitted reference range : <=450. The reference r shayla was not used to int erpret this result as normal/abnormal . MD PattersonTransfusion [id number] 12:59:08Obtain 7 mL blood sample, in pink top vacutainer, and label specimen TRANSFUSION REACTION.MD PattersonCT Chest with [id number] 12:19:50 1. No pneumonia.2. Aneurysmal dilation of the ascending thoracic aorta measures 4.9 cm in diameter. I personally reviewed these image(s) along with the resident's/fellow's interpretations, certifythat if a procedure was performed I was physically present, and agree with the final report.Interface, Radiology Results In - 05/11/2020 7:21 AM CDT FULL RESULT:Examination: CT CHEST W CONTRAST, 05/10/2020 10:10 PMClinical History: Patient is a 74-year-old female with metastatic rectal cancer, presenting with nausea vomiting and anemia with hemoglobin of 5.8.Indication: Scan request unrelated to lung cancerComparison: Outside hospital CT chest abdomen pelvis 04/01/2020Technique: CT of the chest was performed with intravenous contrast.Findings: Lines and tubes: None.Lungs and airways: No pneumonia. Stable 0.4 cm solid nodules in the left lower lobe, seen on series 8 image 281 and in the lingula on image 198 likely representing granulomas orintrapulmonary lymph nodes.Pleural spaces: No pleural effusion or pneumothorax.Lymph nodes: No axillary, hilar or mediastinal lymphadenopathy.Cardiovascular: The heart is normal. No pericardial effusion. Mild coronary artery calcifications. The main pulmonary artery is normal in diameter. No change inthe aneurysmal dilatation of the ascending aorta measuring 4.9 cm. Other Mediastinum: Thyroid goiter is noted. Bilateral heterogenous thyroid nodules, for example measuring 2.8 x 2.0 cm and the left lobe of thyroid, 1.8 x 1.1 cm at the isthmus and 3.2 x 2.4 cm in the right lobe, unchanged from prior.Bones and soft tissues: No suspicious osseous lesions. IMPRESSION:1. No pneumonia.2. Aneurysmal dilation of the ascending thoracic aorta measures 4.9 cm in diameter. I personally reviewed these image(s) along with the resident's/fellow's interpretations, certify that if a procedure was performed I was physically present, and agree with the final report.MD Patterson Cardiac [id number] 10:50:11 Test Item Value Reference Range Interpretation Comments CK (test code = 5206) 61 U/L 26-192 CK MB (test code = <2.0 See_Comment [Automat ed message] The 5209) system which ge nerated this result tra nsmitted reference range : <=5.3 ng/mL. The refe rence range was not u sed to interpret this result as normal/abnormal . Troponin T (test code 11 ng/L See_Comment < 19 ng/L = 9384) Sugge st retest at 3 to 6 hours later to rule out myocar dial infarction >= 1 9 to <=52 ng/L Possible myocardial inju ry. Suggest retest at 3 hours. - a change of < 20 ng/L, retest at 6 verna rs - a change of >= 20 ng/L, sug gestive of myocardial infarction > 5 2 ng/L Suggestive of m yocardial infarction Crit ical value will be reporte d when cTnT is > 52 ng /L and only reported f or the first in a seri es. Hemolyzed speci mens with Hemolysis Index >100 (100 mg/dl or modera te hemolysis) may cause interferences a nd falsely low results. [ Automated message] The [employer] stem which generated this result transmitted ref erence range: <=18. Th e reference range was not used to interpr et this result as normal/abnormal . MD PattersonX-ray Abdomen 2 [id number] 06:25:28Mildly dilated ascending and transverse colon may be related to the distal colonic obstruction from the known descending colonic mass. No dilated small bowel loops. No evidence of small bowel obstruction.. Linear hyperdensity in the right para midline pelvis, may be the migrated fallopian tube device in the uterine cavity and correlated clinically.Interface, Radiology Results In - 05/11/2020 1:28 AMCDT FULL RESULT:Examination: XR ABDOMEN 2 VW AP W UPRIGHT AND OR DECUBITUS on 05/10/2020 7:47 PMClinical History: Rectal cancer.Indication: Abdominal pain.Comparison: CT scan dated 04/01/2020.Technique: XR ABDOMEN 2 VW AP W UPRIGHT AND OR DECUBITUSFindings: Expc-sf-orbkmpgy colonic fecal material. Mildly dilated ascending colon containing fecalmaterial in mild gaseous dilatation of the transverse colon measuring up to 6.6 cm in diameter. Moderate fecal material in the region of the rectum.Gas containing nondilated small bowel loops in the right lower abdomen with nonobstructive bowel gas pattern.Irregular linear hyperdensity in the right pelvis, may be the migrated fallopian tube device in the uterine cavity, to be correlated clinically. Postcholecystectomy clips projecting over the right upper abdomen.No free intraperitoneal gas under the diaphragm.Degenerative changes in the spine. Tiny calcific densities in the pelvis, likely represent phleboliths.IMPRESSION:Mildly dilated ascending and transverse colon may be related to the distal colonic obstruction from the known descending colonic mass.No dilated small bowel loops. No evidence of small bowel obstruction..Linear hyperdensity in the right para midline pelvis, may be the migrated fallopian tube device in the uterine cavity and correlated clinically. MD PattersonConfirm [id number] 03:44:08 Test Item Value Reference Range Interpretation Comments ABORh Confirm. (test code = 882-1) O NEG MD PattersonRespiratory Viral Panel + COVID-19, Nasopharyngeal [id number] 02:09:21 Test Item Value Reference Range Interpretation Comments Adenovirus (test code = Not Detected Not Detected 4669) Coronavirus 229E (test Not Detected Not Detected code = 5349) Coronavirus HKU1 (test Not Detected Not Detected code = 5350) Coronavirus NL63 (test Not Detected Not Detected code = 5351) Coronavirus OC43 (test Not Detected Not Detected code = 5352) COVID19 (SARS-CoV-2) Not Detected Not Detected (test code = 36482-1) Human Metapneumovirus Not Detected Not Detected (test code = 6401) Human Not Detected Not Detected Rhinovirus/Enterovirus (test code = 7212) Influenza A (test code Not Detected Not Detected = 5618) Influenza A H1 (test Not Detected Not Detected code = 5619) Influenza A H1 2008 Not Detected Not Detected (test code = 5620) Influenza A H3 (test Not Detected Not Detected code = 5621) Influenza B (test code Not Detected Not Detected = 5622) Parainfluenza 1 (test Not Detected Not Detected code = 6779) Parainfluenza 2 (test Not Detected Not Detected code = 6780) Parainfluenza 3 (test Not Detected Not Detected code = 6781) Parainfluenza 4 (test Not Detected Not Detected code = 6782) Respiratory Syncytial Not Detected Not Detected Virus (test code = 7157) Bordetella Not Detected Not Detected Parapertussis (test code = 36832) Bordetella pertussis Not Detected Not Detected (test code = 4854) Chlamydiophila Not Detected Not Detected pneumoniae (test code = 5139) Mycoplasma pneumoniae Not Detected Not Detected (test code = 6203) ANABELA (test code = ANABELA) The BioFire RP2.1 is a real-time, nested multiplexed polymerase chain reaction test designed to simultaneously identify nucleic acids from 22 different viruses and bacteria associated with respiratory tract infection, including SARS-CoV-2, from a single nasopharyngeal swab ([employer]) specimen. Specifically, the SARS-CoV-2 primers contained in the BioFire RP2.1 are designed to detect RNA from the SARS-CoV-2 in nasopharyngeal swabs in transport media from patients who are suspected of COVID-19 by their healthcare provider. Results must be interpreted within the context of all relevant clinical and laboratory findings and should not form the sole basis for a diagnosis or treatment decision. This assay has been approved by the FDA for use only under Emergency Use Authorization (EUA) in laboratories that have been CLIA-certified to perform moderate-complexity and high-complexity tests. The [facility] at [facility]), CLIA Accreditation #[id number] and CAP Accreditation #[id number], verified the performance characteristics of this assay. [facility] Laboratory at [facility] performs the assay using the [employer] System. Internal controls are used to monitor all stages of the test process. MD [id number] 00:50:41 Test Item Value Reference Range Interpretation Comments Lipase Lvl (test code = 6165) 29 U/L 13-60 MD [id number] 00:50:40 Test Item Value Reference Range Interpretation Comments Amylase Lvl (test code = 4806) 65 U/L 28-100 MD [facility]EN [id number] 04:18:23Study acquired at another institution. For comparison only. No CA Leonardo originated interpretationrequested or available.MD Patterson
[2020-09-22] MEDS ORDERED: NA CHLORIDE 0.9% 1,000 ML ONE ×4 (12:12→18:46)
[2020-09-22] MEDS ORDERED: ACETAMINOPHEN 500 MG TAB ONE (12:12)
[2020-09-22 12:19] LABS: Protime INR 1.48
[2020-09-22 12:27] LABS: Absolute Lymphocytes (CBC) 3.1 K/uL (0.7-4.9); Basophils % 0.5 % (0-1.3); Hematocrit 27.5 % (36.0-45.0); Lymphocytes % 14.7 % (15.3-44.8); MPV 7.2 fL (7.6-11.3)
[2020-09-22 12:43] LABS: ALT/SGPT 35 U/L (12-78); Albumin 1.3 g/dL (3.4-5.0); Alkaline Phosphatase 501 U/L (45-117); BUN Blood Urea Nitrogen 10 mg/dL (7-18); Bicarbonate 23 mmol/L (21-32); Bilirubin Direct 7.7 mg/dL (0-0.2); Creatine Phosphokinase 27 U/L (26-192); Ferritin 302.6 ng/mL (8-388); Glucose Level 67 mg/dL (74-106); Lipase 76 U/L (73-393); Protein, Total 5.7 g/dL (6.4-8.2); Sodium Level 140 mmol/L (136-145); Troponin (Emerg Dept Use Only) 0.02 ng/mL (0.0-0.045)
[2020-09-22 12:50] LABS: Potassium 3.1 mmol/L (3.5-5.1)
[2020-09-22 12:51] LABS: AST/SGOT 54 U/L (15-37); CKMB Creatine Kinase MB < 1.0 ng/mL (1.0-3.6)
[2020-09-22 12:52] LABS: Bilirubin Total 9.3 mg/dL (0.2-1.0)
[2020-09-22 12:59] LABS: Blood Morphology Comment NOT SEEN (NOT SEEN); Platelet Estimate ADEQ
[2020-09-22] MEDS ORDERED: NA CHLORIDE 0.9% 250 ML ONE (13:11)
[2020-09-22] MEDS ORDERED: VANCOMYCIN 1 GM/VIAL ONE (13:11)
[2020-09-22] MEDS ORDERED: CEFEPIME/SWI 1gm 10 ML ONE (13:12)
--- NOTE | 2020-09-22 13:12 | RAD REPORT ---
EXAM DESCRIPTION: RAD - Chest Single View - 09/22/2020 12:47 pm CLINICAL HISTORY: Fever;Dyspnea COMPARISON: CT chest July 20, portable chest July 20 TECHNIQUE: AP portable chest image was obtained 09/22/2020 12:47 pm . FINDINGS: Lung volumes are reduced compared to the prior study. Linear stranding abutting the right hemidiaphragm is probably atelectasis rather than infiltrate. Mid and upper lung castro are clear of consolidation or new mass lesion. Heart and vasculature are normal. No pneumothorax. Bilateral pleura l effusions have developed since the comparison. No acute bony abnormality seen. No acute aortic find ing. Sternotomy wires have been placed since the comparison. Radiopaque tubing overlies the midline a bdomen possibly within the hepatic parenchyma based on the July CT study. Right-sided Port-A-Cath is in place. IMPRESSION: Shallow inspiration exam showing bilateral pleural effusions, small in size, with right base atelectasis. No convincing evidence for pneumonia or acute lung parenchymal process.
[2020-09-22] MEDS ORDERED: KCL 20 MEQ/100 mL IVPB 20 MEQ/100 ML BAG IV ONE (14:51)
[2020-09-22] MEDS ORDERED: POTASSIUM 25 MEQ EFFERV TAB ONE (14:53)
--- NOTE | 2020-09-22 14:58 | RAD REPORT ---
EXAM DESCRIPTION: CT - Abdomen Pelvis W Contrast - 09/22/2020 2:15 pm CLINICAL HISTORY: FEVER COMPARISON: Chest For Pe Angio dated 07/20/2020 TECHNIQUE: Biphasic, helical CT imaging of the abdomen and pelvis was performed following 100 ml non -ionic IV contrast. No oral contrast. All CT scans are performed using dose optimization technique as appropriate and may include automated exposure control or mA/KV adjustment according to patient size. FINDINGS: Cardiac silhouette is prominent. No pericardial effusion or pericardial thickening. Left g reater than right moderately large pleural effusions are present. There is partial atelectasis of the lower lobes. Pneumonia within the atelectatic lung is not excluded but felt to be relatively low in likelihood. No pneumothorax. No suspicion for empyema. Liver is grossly abnormal. Specific malignancy history is not detailed. A percutaneous catheter is in place entering the left lobe in the midline. This courses to the liver parenchyma into the biliary t ree. This is presumably for chemotherapy infusion. No portal vein thrombus. Heterogeneity of the hepa tic parenchyma is seen. Focal area of enhancement or calcification 15 mm in size is present in the mi d right lobe. A similar 2 centimeter focus present in the deep central right lobe. No primary pancrea tic process confirmed. Heterogeneity of the pancreatic parenchyma is seen throughout. No splenic abno rmality seen. Cholecystectomy clips are present. Symmetric renal function is seen with no hydronephrosis or suspicious renal mass. No pyelonephritis o r acute parenchymal process. No bladder abnormalities. No adrenal abnormalities. No uterine abnormali ty suspected. Ovaries are not clearly distinguishable from the adjacent non-opacified bowel. An ovari an process is not suspected. No gastric dilatation or gastric wall thickening. No dilated small bowel loops. Fluid fills but does not dilate the transverse and right-side of the colon. Appendix is not clearly identifiable as a uniq ue structure. Circumferential nodular wall thickening of the descending colon is present with luminal narrowing. This has the appearance of a malignancy and may be a known finding. A colon malignancy hi story was detailed on the July 20 CT chest study. No free air or pneumatosis. Peritoneal and retroperitoneal fatty tissues are edematous. No abnormal free fluid collection. There is no abscess identified. A 4 centimeter fat only periumbilical hernia i s present. The neck is 2.5 cm. No bulky lymphadenopathy. No suspicious bony findings. IMPRESSION: Malignant mass in the descending colon. Circumferential wall thickening narrows the lume n but is nonobstructive. Abnormal appearance to the liver with heterogeneity and areas of abnormal focal enhancement or minera lization. There is an indwelling catheter presumed to be for chemotherapy infusion. No abscess identified. No pyelonephritis or acute infectious GI process seen. Pronounced fluid retention throughout the subcutaneous fatty tissues. Moderate severity bilateral ple ural effusions are present.
[2020-09-22 15:18] LABS: Urine Blood Negative (Negative); Urine Glucose Trace (Negative); Urine Protein Negative (Negative); Urine Specific Gravity 1.015 (1.005-1.030)
[2020-09-22 15:31] LABS: Urine Bacteria <20 /HPF (<20); Urine RBC <5 /HPF (NONE SEEN)
--- NOTE | 2020-09-22 16:24 | EKG ---
Test Date: 2020-09-22 Test Time: 12:37:21 Box Sealing Machine Feeder: TESHA MEASUREMENT RESULTS: Intervals: Rate: 115 OH: QRSD: 118 QT: 386 QTc: 533 Kennedy: P: OH: QRS: -2 T: 27 INTERPRETIVE STATEMENTS: Accelerated Junctional rhythm with premature supraventricular complexes Right bundle branch block Anteroseptal infarct, age undetermined T wave abnormality, consider lateral ischemia Abnormal ECG Compared to ECG 07/20/2020 21:45:39 Atrial premature complex(es) now present Accelerated junctional rhythm now present Right bundle-branch block now present Myocardial infarct finding now present T-wave abnormality now present Possible ischemia now present Sinus rhythm no longer present Electronically Signed On 09-22-20 16:22:46 CDT by Gianni Caceres
--- NOTE | 2020-09-22 18:45 | EDPHYS ---
Physician Documentation [facility] Name: Krista Chakraborty Age: 74 yrs Sex: Female : 1945 Arrival Date: 09/22/2020 Time: 11:31 Bed 18 Private MD: Stuart Diaz ED Physician Huan Cole HPI: 09/22 15:46 This 74 yrs old Black Female presents to ER via Wheelchair with complaints of Fever, jr8 Weakness. 15:46 The patient reports fever, with an emergency department temperature of 101.6 degrees jr8 Fahrenheit. Onset: The symptoms/episode began/occurred acutely, today. Modifying factors: there are no obvious modifying factors. Associated signs and symptoms: Pertinent positives: chills. Severity of symptoms: At their worst the symptoms were moderate in the emergency department the symptoms are unchanged. The patient has not experienced similar symptoms in the past. The patient has not recently seen a physician. This is a 74-year-old female patient that presented to the emergency room with acute onset fever and decreased responsiveness. Family stated that she has a history of sepsis in the past was concerned because she was not acting right this morning and took her temperature and found that she was running a fever. 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 Currently on chemotherapy. Patient upon arrival is alert to person place time and event. Only complaint is body aches chills and fever at this time.. Historical: - Allergies: 12:41 No Known Allergies; tr6 - PMHx: 12:41 colon cancer; Hypertension; liver cancer; tr6 - Immunization history:: Adult Immunizations up to date, Client reports receiving the 2nd dose of the Covid vaccine. - Social history:: Smoking status: unknown. ROS: 15:46 Eyes: Negative for injury, pain, redness, and discharge, ENT: Negative for injury, jr8 pain, and discharge, Neck: Negative for injury, pain, and swelling, Cardiovascular: Negative for chest pain, palpitations, and edema, Respiratory: Negative for shortness of breath, cough, wheezing, and pleuritic chest pain, Abdomen/GI: Negative for abdominal pain, nausea, vomiting, diarrhea, and constipation, Back: Negative for injury and pain, MS/Extremity: Negative for injury and deformity, Skin: Negative for injury, rash, and discoloration. 15:46 Constitutional: Positive for body aches, chills, fever, malaise. 15:46 Neuro: Positive for altered mental status. Exam: 15:46 ENT: Nares patent. No nasal discharge, no septal abnormalities noted. Tympanic jr8 membranes are normal and external auditory canals are clear. Oropharynx with no redness, swelling, or masses, exudates, or evidence of obstruction, uvula midline. Mucous membranes moist. Neck: Trachea midline, no thyromegaly or masses palpated, and no cervical lymphadenopathy. Supple, full range of motion without nuchal rigidity, or vertebral point tenderness. No Meningismus. Cardiovascular: Regular rate and rhythm with a normal S1 and S2. No gallops, murmurs, or rubs. Normal PMI, no JVD. No pulse deficits. Respiratory: Lungs have equal breath sounds bilaterally, clear to auscultation and percussion. No rales, rhonchi or wheezes noted. No increased work of breathing, no retractions or nasal flaring. Abdomen/GI: Soft, non-tender, with normal bowel sounds. No distension or tympany. No guarding or rebound. No evidence of tenderness throughout. Biliary drainage tube is noted in the right upper quadrant. No erythema or discharge. Seems to be patent and draining at this time. Skin: Warm, dry with normal turgor. Normal color with no rashes, no lesions, and no evidence of cellulitis. MS/ Extremity: Pulses equal, no cyanosis. Neurovascular intact. Full, normal range of motion. Neuro: Awake and alert, GCS 15, oriented to person, place, time, and situation. Cranial nerves II-XII grossly intact. Motor strength 5/5 in all extremities. Sensory grossly intact. 15:46 Constitutional: The patient appears alert, awake, febrile, frail. Vital Signs: 11:53 Weight 74.84 kg (R); tr6 12:06 Temp 101.6(O); tr6 12:39 BP 120 / 68; Pulse 101; Resp 18; Pulse Ox 98% on R/A; tr6 16:00 BP 91 / 58; Pulse 98; Resp 18; Temp 99.6(O); Pulse Ox 98% on R/A; tr6 18:00 BP 84 / 56; Pulse 85; Resp 17; Pulse Ox 100% on R/A; tr6 09/23 05:41 BP 91 / 62; Pulse 75; Resp 16; Pulse Ox 100% ; ch4 NIH Stroke Scale Scores: 09/22 12:44 NIHSS Score: 0 tr6 MDM: 11:43 Patient medically screened. [facility] 17:15 Data reviewed: vital signs, nurses notes, lab test result(s), EKG, radiologic studies, [facility] CT scan, plain films. Data interpreted: Pulse oximetry: on room air is 98 %. Interpretation: normal. Counseling: I had a detailed discussion with the patient and/or guardian regarding: the historical points, exam findings, and any diagnostic results supporting the discharge/admit diagnosis, lab results, radiology results. ED course: Still no source of infection. Patient appears to have severe sepsis with septic shock based on blood pressure and other labs. Patient recently had all of her care including her biliary stents put in at [facility]. Will attempt to transfer her there for further care as she needs ICU level care at this point.. 18:38 ED course: Discussed case with [facility]. Was willing to accept but are at capacity [facility] at this time. [facility], [place], [facility] also has saturation at this time.. 09/22 11:44 Order name: Basic Metabolic Panel [facility] 09/22 11:44 Order name: Blood Culture Adult (2) [facility] 09/22 11:44 Order name: C-Reactive Protein [facility] 09/22 11:44 Order name: CBC with Diff [facility] 09/22 11:44 Order name: CPK [facility] 09/22 11:44 Order name: Ckmb [facility] 09/22 11:44 Order name: LFT's [facility] 09/22 11:44 Order name: Lactate [facility] 09/22 11:44 Order name: Lipase; Complete Time: 12:53 [facility] 09/22 11:44 Order name: Procalcitonin; Complete Time: 13:10 [facility] 09/22 11:44 Order name: Protime (+inr); Complete Time: 12:38 [facility] 09/22 11:44 Order name: Ptt, Activated; Complete Time: 12:38 [facility] 09/22 11:44 Order name: Troponin (emerg Dept Use Only); Complete Time: 12:53 [facility] 09/22 11:44 Order name: Urine Microscopic Only; Complete Time: 15:40 [facility] 09/22 11:44 Order name: Ferritin; Complete Time: 12:53 jr8 09/22 11:44 Order name: Basic Metabolic Panel; Complete Time: 12:53 EDMS 09/22 11:44 Order name: Blood Culture EDMS 09/22 11:44 Order name: C-Reactive Protein; Complete Time: 12:53 EDMS 09/22 11:45 Order name: CBC with Automated Diff; Complete Time: 13:10 EDMS 09/22 11:45 Order name: Creatine Phosphokinase; Complete Time: 12:53 EDMS 09/22 11:45 Order name: CKMB Creatine Kinase MB; Complete Time: 12:53 EDMS 09/22 11:45 Order name: Liver (Hepatic) Function; Complete Time: 12:53 EDMS 09/22 11:45 Order name: Lactate; Complete Time: 12:44 EDMS 09/22 12:00 Order name: TS; Complete Time: 13:46 8 09/22 12:11 Order name: Glucose, Ancillary Testing; Complete Time: 12:38 EDMS 09/22 12:59 Order name: Manual Differential; Complete Time: 13:10 EDMS 09/22 14:50 Order name: Glucose, Ancillary Testing; Complete Time: 14:52 EDMS 09/22 15:18 Order name: Urine Dipstick-Ancillary; Complete Time: 15:40 EDMS 09/22 17:03 Order name: SARS-COV-2 RT PCR; Complete Time: 17:10 EDMS 09/22 11:44 Order name: Chest Single View XRAY; Complete Time: 13:16 8 09/22 13:10 Order name: CT Abd/Pelvis - IV Contrast Only; Complete Time: 15:00 8 09/22 18:03 Order name: Lactate Sepsis 2 HR Follow-up; Complete Time: 18:03 EDMS 09/22 20:04 Order name: ABO/RH no charge EDMS 09/22 23:44 Order name: Comprehensive Metabolic Panel EDMS 09/22 23:44 Order name: Comprehensive Metabolic Panel EDMS 09/22 23:44 Order name: CBC with Automated Diff EDMS 09/22 23:44 Order name: Comprehensive Metabolic Panel EDMS 09/22 23:44 Order name: Comprehensive Metabolic Panel EDMS 09/22 23:44 Order name: Lipid Profile EDMS 09/22 23:44 Order name: Lipid Profile EDMS 09/23 00:13 Order name: CBC with Automated Diff EDMS 09/23 00:13 Order name: Magnesium EDMS 09/23 00:13 Order name: T4 Free EDMS 09/23 00:13 Order name: Thyroid Stimulating Hormone EDMS 09/23 02:20 Order name: Urinalysis EDMS 09/23 02:20 Order name: CBC with Automated Diff EDMS 09/23 02:20 Order name: CBC with Automated Diff EDMS 09/23 02:20 Order name: Magnesium EDMS 09/23 02:20 Order name: Magnesium EDMS 09/23 02:20 Order name: Magnesium EDMS 09/23 02:20 Order name: T4 Free EDMS 09/23 02:20 Order name: Thyroid Stimulating Hormone EDMS 09/23 05:55 Order name: Hematocrit EDMS 09/23 05:55 Order name: Hemoglobin EDMS 09/23 07:36 Order name: Echo with Doppler EDMS 09/23 07:39 Order name: Abdomen Exam Complete EDMS 09/23 07:51 Order name: Gram Stain--Aerobic Bottle EDMS 09/23 07:51 Order name: Gram Stain--Anaerobic Bottle EDMS 09/23 07:55 Order name: Gram Stain--Aerobic Bottle EDMS 09/23 07:55 Order name: Gram Stain--Anaerobic Bottle EDMS 09/24 07:16 Order name: Urine Dipstick-Ancillary EDMS 09/22 11:44 Order name: Accucheck; Complete Time: 12:45 8 09/22 11:44 Order name: Cardiac monitoring; Complete Time: 12:45 8 09/22 11:44 Order name: Cath; Complete Time: 18:27 jr8 09/22 11:44 Order name: EKG - Nurse/Tech; Complete Time: 12:45 jr8 09/22 11:44 Order name: IV Saline Lock - Large Bore; Complete Time: 12:45 jr8 09/22 11:44 Order name: Labs collected and sent; Complete Time: 12:45 jr8 09/22 11:44 Order name: O2 Per Protocol; Complete Time: 12:45 jr8 09/22 11:44 Order name: O2 Sat Monitoring; Complete Time: 12:45 8 09/22 11:44 Order name: Urine Dipstick-Ancillary (obtain specimen); Complete Time: 18:27 jr8 09/22 14:26 Order name: EKG Electrocardiogram EDMS 09/22 23:44 Order name: CONS Physician Consult EDMS 09/22 23:44 Order name: Clear Liquid EDMS 09/23 07:37 Order name: Dietitian Consult EDMS Administered Medications: 12:45 Drug: Acetaminophen 1000 mg Route: PO; tr6 12:46 Drug: NS 0.9% (30 ml/kg) 30 ml/kg Route: IV; Rate: bolus; Site: right forearm; tr6 13:05 Drug: vancoMYCIN 1 grams Route: IVPB; Infused Over: 2 hrs; Site: right forearm; tr6 14:54 Follow up: Response: No adverse reaction; IV Intake: 250ml tr6 13:05 Drug: Cefepime 1 grams Route: IVPB; Rate: 200 ml/hr; Infused Over: 30 mins; Site: right tr6 forearm; 14:53 Follow up: Response: No adverse reaction; IV Intake: 100ml tr6 14:52 Drug: Potassium Chloride 20 mEq Route: IV; Rate: calculated rate; Site: right forearm; tr6 14:54 Drug: Potassium Effervescent Tablet 25 mEq Route: PO; tr6 16:33 Follow up: Response: No adverse reaction tr6 18:20 Drug: NS 0.9% 1000 ml Route: IV; Rate: 100 ml/hr; Site: right forearm; tr6 Point of Care Testing: Blood Glucose: 12:39 Blood Glucose: 64 mg/dL; tr6 Ranges: Critical Glucose Levels:Adult <50 mg/dl or >400 mg/dl <40 mg/dl or >180 mg/dl Disposition: 09/23 08:22 Co-signature as Attending Physician, Huan Cole MD I agree with the assessment and rn plan of care. Attestation: The patient's history, exam findings, diagnostics, and a summary of any interventions or procedures was reviewed in detail with Alfred HELTON. Disposition Summary: 09/22/20 18:43 Hospitalization Ordered Hospitalization Status: Inpatient Admission jr8 Provider: Emmanuel Zendejas Condition: Stable jr8 Problem: new jr8 Symptoms: have improved jr8 Bed/Room Type: Standard [facility] Location: [facility] ER HOLD(09/22/20 20:22) tl1 Room Assignment: ERHOLD-(09/22/20 20:22) tl1 Diagnosis - Severe sepsis with septic shock jr8 Forms: - Medication Reconciliation Form jr8 - SBAR form jr8 NIH Stroke Scale - NIH Stroke Score Date: 09/22/2020 Time: 12:44 Total Score = 0 1a. Level of Consciousness (LOC) - 0(Alert) 1b. Level of Consciousness (LOC) (Month \T\ Age) - 0(Both) 1c. LOC Commands (Open \T\ Closes Eyes/Road Conductor) - 0(Both) 2. Best Gaze (Lateral Gaze Paresis) - 0(Normal) 3. Visual Field Loss - 0(No visual loss) 4. Facial Palsy - 0(Normal) 5a. Left Arm: Motor (10-second hold) - 0(No drift) 5b. Right Arm: Motor (10-second hold) - 0(No drift) 6a. Left Leg: Motor (5-second hold - always test supine) - 0(No drift) 6b. Right Leg: Motor (5-second hold - always test supine) - 0(No drift) 7. Limb Ataxia (finger/nose \T\ heel/mcneill - test with eyes open) - 0(Absent) 8. Sensory Loss (pinprick arms/legs/face) - 0(Normal) 9. Best Language: Aphasia (description/naming/reading) - 0(No aphasia) 10. Dysarthria (speech clarity - read or repeat words) - 0(Normal) 11. Extinction and Inattention (visual/tactile/auditory/spatial/personal) - 0(No abnormality) Initials: tr6 Signatures: Dispatcher [employer] Huan Torres MD MD rn Roszak, Josh, PA PA jr8 Natalia Thompson RN RN tl1 Maryan Lopez, TAMELA RN tr6 Corrections: (The following items were deleted from the chart) 09/22 16:01 11:45 CORONAVIRUS+ ordered. VICKIAR VICKIAR : 18:43 Intensive Care Unit jr8 tl1 20:22 18:43 jr8 tl1
--- NOTE | 2020-09-22 18:45 | ER ---
Nurse's Notes [facility] Name: Krista Chakraborty Age: 74 yrs Sex: Female : 1945 Arrival Date: 09/22/2020 Time: 11:31 Bed 18 Private MD: Stuart Diaz Diagnosis: Severe sepsis with septic shock Presentation: 09/22 12:40 Chief complaint: Patient's son or daughter states: fever and chills this morning. tr6 generalized weakness. Coronavirus screen: At this time, unable to obtain information related to travel outside the [place] Ebola Screen: No symptoms or risks identified at this time. No acute neurological deficit is noted. Initial Sepsis Screen: Does the patient meet any 2 criteria? Temp <36.0*C (96.8*F)) or > 38.3*C (100.9*F). No. Patient's initial sepsis screen is negative. Does the patient have a suspected source of infection? No. Patient's initial sepsis screen is negative. Risk Assessment: Do you want to hurt yourself or someone else? Patient reports no desire to harm self or others. Onset of symptoms is unknown. 12:40 Acuity: MARGE 2 tr6 12:40 Method Of Arrival: Wheelchair tr6 Triage Assessment: 12:41 General: Appears in no apparent distress. uncomfortable, Behavior is calm, cooperative, tr6 appropriate for age. Pain: Complains of pain in rectum. EENT: No deficits noted. Neuro: Level of Consciousness is awake, alert, obeys commands, Oriented to person, place, time, situation, Appropriate for age Reports weakness. Cardiovascular: No deficits noted. Respiratory: No deficits noted. GI: Abdomen is flat, Site clean. Stools are reported to be loose, diarrhea. Last BM was September 22, 2020. GI: Reports stage 4 colon cancer. : No deficits noted. Derm: No deficits noted. Musculoskeletal: Reports weakness in generalized weakness. 17:29 Cardiovascular: Edema is 2+ to left midcalf, left ankle, left foot, left toes, right tr6 midcalf, right ankle, right foot and right toes. Historical: - Allergies: 12:41 No Known Allergies; tr6 - PMHx: 12:41 colon cancer; Hypertension; liver cancer; tr6 - Immunization history:: Adult Immunizations up to date, Client reports receiving the 2nd dose of the Covid vaccine. - Social history:: Smoking status: unknown. Screenin:35 Abuse screen: Denies threats or abuse. Denies injuries from another. Nutritional tr6 screening: Has had N/V for 3 or more days. Tuberculosis screening: No symptoms or risk factors identified. Fall Risk None identified. Sepsis Screening:. Assessment: 12:35 Patient has been NPO before screening. The patient is not alert and/or unable to follow tr6 commands. The patient does not exhibit slurred or garbled speech. The patient tolerated 90mL of water. No drooling, immediate coughing, gurgling, or clearing of the throat was noted. The patient passed the bedside swallow screening. Oral medications may be given as ordered. Contact Physician for further diet orders. 12:44 VAN Scoring: Arm Drift: Patients demonstrates NO arm weakness. Patient is VAN Negative. tr6 The patient does not exhibit difficulty understanding words. The patient is able to swallow own secretions with no drooling or need for suction. Patient tolerated one teaspoon of water. No drooling, immediate coughing, gurgling, or clearing of the throat was noted. Provider notified of bedside swallow screening results: Alfred HELTON. 14:09 Reassessment: pt transferred to CT. tr6 17:57 Reassessment: pts own wheelchair and clothing taken home by pts daughter. pts cell tr6 phone and lan analyst with pt in room. Vital Signs: 11:53 Weight 74.84 kg (R); tr6 12:06 Temp 101.6(O); tr6 12:39 BP 120 / 68; Pulse 101; Resp 18; Pulse Ox 98% on R/A; tr6 16:00 BP 91 / 58; Pulse 98; Resp 18; Temp 99.6(O); Pulse Ox 98% on R/A; tr6 18:00 BP 84 / 56; Pulse 85; Resp 17; Pulse Ox 100% on R/A; tr6 08 05:41 BP 91 / 62; Pulse 75; Resp 16; Pulse Ox 100% ; ch4 NIH Stroke Scale Scores: 09/22 12:44 NIHSS Score: 0 tr6 ED Course: 11:31 Patient arrived in ED. ds1 11:31 Alfred Wrad PA is PHCP. jr8 11:31 Huan Cole MD is Attending Physician. jr8 11:31 Stuart Diaz MD is Private Physician. ds1 11:31 Maryan Lopez, RN is Primary Nurse. tr6 12:35 Resting quietly. Awaiting lab results. tr6 12:35 Patient has correct armband on for positive identification. Fall risk band placed. tr6 Placed in gown. Bed in low position. Call light in reach. Side rails up X2. lunchroom monitor on. Pulse ox on. NIBP on. Door closed. Noise minimized. Visitors limited. Lights dimmed. Moved to private room. Warm blanket given. Pillow given. Diet:. 12:35 No provider procedures requiring assistance completed. Inserted saline lock: 18 gauge tr6 in right forearm, using aseptic technique. Blood collected. Patient maintains SpO2 saturation greater than 95% on room air. 12:41 Triage completed. tr6 12:47 Chest Single View XRAY In Process Unspecified. EDMS 14:15 CT Abd/Pelvis - IV Contrast Only In Process Unspecified. EDMS 14:52 Pinon cath inserted, using sterile technique, 16 Fr., by ut, by ED staff, balloon tr6 inflated, to gravity drainage, urine specimen collected. Patient tolerated well. 17:32 initiated transfer to [facility]. bd 18:39 Emmanuel Zendejas DO is Hospitalizing Provider. jr8 18:41 pt denied at [facility] due to no beds available. bd 08 07:08 Primary Nurse role handed off by Maryan Lopez, TAMELA bp 07:08 Phil Eaton, TAMELA is Primary Nurse. bp 14:22 Diet: CLEAR LIQUIDS HOT TEA. mh5 Administered Medications: 09/22 12:45 Drug: Acetaminophen 1000 mg Route: PO; tr6 12:46 Drug: NS 0.9% (30 ml/kg) 30 ml/kg Route: IV; Rate: bolus; Site: right forearm; tr6 13:05 Drug: vancoMYCIN 1 grams Route: IVPB; Infused Over: 2 hrs; Site: right forearm; tr6 14:54 Follow up: Response: No adverse reaction; IV Intake: 250ml tr6 13:05 Drug: Cefepime 1 grams Route: IVPB; Rate: 200 ml/hr; Infused Over: 30 mins; Site: right tr6 forearm; 14:53 Follow up: Response: No adverse reaction; IV Intake: 100ml tr6 14:52 Drug: Potassium Chloride 20 mEq Route: IV; Rate: calculated rate; Site: right forearm; tr6 14:54 Drug: Potassium Effervescent Tablet 25 mEq Route: PO; tr6 16:33 Follow up: Response: No adverse reaction tr6 18:20 Drug: NS 0.9% 1000 ml Route: IV; Rate: 100 ml/hr; Site: right forearm; tr6 Point of Care Testing: Blood Glucose: 12:39 Blood Glucose: 64 mg/dL; tr6 Ranges: Intake: 14:53 IV: 100ml; Total: 100ml. tr6 14:54 IV: 250ml; Total: 350ml. tr6 Outcome: 18:43 Decision to Hospitalize by Provider. jr8 09/24 18:23 Patient left the ED. NIH Stroke Scale - NIH Stroke Score Date: 09/22/2020 Time: 12:44 Total Score = 0 1a. Level of Consciousness (LOC) - 0(Alert) 1b. Level of Consciousness (LOC) (Month \T\ Age) - 0(Both) 1c. LOC Commands (Open \T\ Closes Eyes/Stock Control Clerk) - 0(Both) 2. Best Gaze (Lateral Gaze Paresis) - 0(Normal) 3. Visual Field Loss - 0(No visual loss) 4. Facial Palsy - 0(Normal) 5a. Left Arm: Motor (10-second hold) - 0(No drift) 5b. Right Arm: Motor (10-second hold) - 0(No drift) 6a. Left Leg: Motor (5-second hold - always test supine) - 0(No drift) 6b. Right Leg: Motor (5-second hold - always test supine) - 0(No drift) 7. Limb Ataxia (finger/nose \T\ heel/mcneill - test with eyes open) - 0(Absent) 8. Sensory Loss (pinprick arms/legs/face) - 0(Normal) 9. Best Language: Aphasia (description/naming/reading) - 0(No aphasia) 10. Dysarthria (speech clarity - read or repeat words) - 0(Normal) 11. Extinction and Inattention (visual/tactile/auditory/spatial/personal) - 0(No abnormality) Initials: tr6 Signatures: Dispatcher [employer] EDHina Bales, Leana ds1 Tammie Arrington, TAMELA RN Alfred Ward PA PA jr8 Viki Reagan Phil Mckeon RN RN bp Maryan Lopez RN RN tr6 Nancy Infante RN RN ch4 Corrections: (The following items were deleted from the chart) 09/22 12:35 12:06 Temp 106.1F Oral; tr6 tr6
--- NOTE | 2020-09-22 20:01 | P.HP ---
Certification for Inpatient Patient admitted to: Inpatient With expected LOS: >2 Midnights Patient will require the following post-hospital care: None Practitioner: I am a practitioner with admitting privileges, knowledge of patient current condition, hospital course, and medical plan of care. Services: Services provided to patient in accordance with Admission requirements found in Title 42 Section 412.3 of the Code of Federal Regulations Patient History Date of Service: 09/22/20 Reason for admission: Severe sepsis History of Present Illness: 74-year-old -[place] female with a history of stage IV colon cancer with metastasis to the liver with biliary stents in place, history of abdominal aortic aneurysm status post repair presents emergency room for fever, weakness. Patient reportedly had AAA with repair approximate 1.5 months ago, after recovery patient was sent to [facility] for further evaluation from colon cancer with mets to the liver, patient had Port-A-Cath and biliary stents placed while at [facility], patient then went to rehab and was recently discharged. This morning patient began running fever to 101, patient was evaluated in the emergency department labs were significant for white blood cell count 21.2 hemoglobin 8.9 hematocrit 27.5 MCV 94.8 platelets 482 sodium 140 potassium 3.1 chloride 109 creatinine 0.5 glucose 67 calcium 7.5T bili 9.3D bili 7.7 AST 54 alk phos 501 C-reactive protein 79.8 procalcitonin 0.9 lactic acid two-point 9 repeat 2.4 urinalysis negative Covid negative CT abdomen pelvis demonstrates malignant mass in the descending colon with circumferential wall thickening narrowing the lumen but is nonobstructive, abnormal appearance of the liver with heterogenicity and areas of abnormal focal enhancement or mineralization, indwelling catheter also in place no abscess identified no pyelonephritis or acute GI process is seen pronounced fluid retention throughout the subcutaneous fatty tissues moderate severity bilateral pleural effusions present. Case was discussed with daughter who helps care for patient and also with patient, transfer was attempted to both [facility], [facility], [facility], [facility], [facility] for ICU, higher level of care, biliary specialist all were declined for capacity purposes. Discussed with daughter plan of care here would include IV antibiotics, supportive measures and continuous evaluation for possible source of infection. Daughter agrees with plan of care at this time patient does have DNR in place. Will admit to the ICU as patient's blood pressure is borderline at this time. - Past Medical/Surgical History -: Stage IV colon cancer with mets to liver -: Hypertension -: Biliary stenting -: Port-A-Cath placement Psychosocial/ Personal History: Patient currently lives at home with daughter - Family History Family History: Reviewed- Non-Contributory - Social History Smoking Status: Never smoker Alcohol use: No CD- Drugs: No Caffeine use: Yes Place of Residence: Home Review of Systems 10-point ROS is otherwise unremarkable General: Fever, Chills, Weakness, Malaise Physical Examination - Physical Exam General: Alert, In no apparent distress, Oriented x3 HEENT: Atraumatic, PERRLA, Mucous membr. moist/pink, EOMI, Sclerae nonicteric Neck: Supple, 2+ carotid pulse no bruit, No LAD, Without JVD or thyroid abnormality Respiratory: Diminished, Crackles/rales Cardiovascular: No edema, Regular rate/rhythm, Normal S1 S2, Other (Port-A-Cath to chest wall) Capillary refill: <2 Seconds Gastrointestinal: No tenderness, Other (Percutaneous drain, biliary stents in place) Musculoskeletal: No tenderness Integumentary: No rashes Neurological: Normal speech, Normal strength at 5/5 x4 extr, Normal tone, Normal affect Lymphatics: No axilla or inguinal lymphadenopathy - Studies Laboratory Data (last 24 hrs) 09/22/20 11:57: PT 17.1 H, INR 1.48, APTT 27.1 09/22/20 11:57: WBC 21.20 H*, Hgb 8.9 L, Hct 27.5 L, Plt Count 482 H 09/22/20 11:57: Sodium 140, Potassium 3.1 L, BUN 10, Creatinine 0.50 L, Glucose 67 L, Total Bilirubin 9.3 H*, AST 54 H, ALT 35, Alkaline Phosphatase 501 H, Lipase 76 Assessment and Plan - Plan Assessment: Severe sepsis unknown etiology possibly related to Port-A-Cath versus biliary stents Stage IV colon cancer with metastasis to the liver Hypertension Plan: Severe sepsis unknown etiology possibly related to Port-A-Cath versus biliary stents: Continue with broad-spectrum antibiotic therapy, blood cultures have been obtained. Infectious disease consulted for additional assistance, CT negative for any acute processes from a GI standpoint. Transfer was attempted for higher level of care, ICU, biliary specialist declined at all facilities due to capacity. Patient and daughter aware of circumstances will continue broad- spectrum antibiotics. Patient may require vasopressor therapy will provide if necessary. Stage IV colon cancer with metastasis to the liver: Patient was being evaluated for possibility of continued therapy versus hospice. Daughter aware patient is very ill may be hospice appropriate depending on outcome from infective process and patient's condition. Hypertension: Blood pressure low at this time we will hold medications. DVT PPX: Lovenox Code status: DNR Discharge Plan: Home Plan to discharge in: Greater than 2 days - Advance Directives Does patient have a Living Will: No Does patient have a Durable POA for Healthcare: No - Code Status/Comfort Care Code Status Assessed: Yes (DNR) Critical Care: No Time Spent Managing Pts Care (In Minutes): 55
[2020-09-22] MEDS ORDERED: ACETAMINOPHEN 500 MG TAB PO PRN (23:42)
[2020-09-22] MEDS ORDERED: ONDANSETRON 4 MG/2 ML VIAL IV PRN (23:42)
[2020-09-22] MEDS ORDERED: CEFEPIME 1 GM/VIAL IV SCH (23:42)
[2020-09-22] MEDS: LINEZOLID 600 MG IVPB 600 MG/300 ML BAG IV SCH (23:42)
--- NOTE | 2020-09-23 00:14 | P.INFCA ---
Sepsis Focused Assessment - Focused Assessment Complete? Sepsis Focused Assessment Completed?: Yes - Sepsis Screen Result Severe Sepsis: Positive Septic Shock: Negative - Evaluation Current stage of sepsis: Severe sepsis - Vital Signs Reviewed: Yes Temperature: 98.4 F Heart rate: 89 Blood Pressure: 90/60 Respiratory Rate: 18 O2 Sat by Pulse Oximetry: 98 - Examination Date exam was performed: 09/23/20 Time exam was performed: 00:14 Heart: Regular rate/rhythm Lungs: Diminished air movement Peripheral pulses: 2+ Slightly diminished Peripheral pulse location: Radial Capillary refill: <2 Seconds Skin examination: Normal turgor
[2020-09-23] MEDS ORDERED: CEFEPIME/SWI 1gm 10 ML ONE ×2 (00:18→09:56)
[2020-09-23] MEDS ORDERED: LINEZOLID 600 MG IVPB 600 MG/300 ML BAG IV ONE (00:45)
[2020-09-23 03:54] LABS: Absolute Lymphocytes (CBC) 3.3 K/uL (0.7-4.9); Basophils % 0.5 % (0-1.3); Hematocrit 23.9 % (36.0-45.0); Lymphocytes % 21.7 % (15.3-44.8); MPV 7.3 fL (7.6-11.3); RBC Red Blood Cell Count 2.48 M/uL (3.86-4.86)
[2020-09-23 04:23] LABS: ALT/SGPT 25 U/L (12-78); AST/SGOT 36 U/L (15-37); Albumin 1.1 g/dL (3.4-5.0); Alkaline Phosphatase 335 U/L (45-117); BUN Blood Urea Nitrogen 12 mg/dL (7-18); Bicarbonate 24 mmol/L (21-32); Glucose Level 90 mg/dL (74-106); HDL Cholesterol 9 mg/dL (40-60); LDL Cholesterol, Calculated 110 (<130); Magnesium 1.8 mg/dL (1.8-2.4); Potassium 3.4 mmol/L (3.5-5.1); Protein, Total 4.4 g/dL (6.4-8.2); Sodium Level 142 mmol/L (136-145); Thyroid Stimulating Hormone 0.671 uIU/mL (0.360-3.740)
[2020-09-23 04:37] LABS: Bilirubin Total 6.7 mg/dL (0.2-1.0)
[2020-09-23] MEDS: NA CHLORIDE 0.9% 1,000 ML IV SCH ×2 (05:13→09:42)
[2020-09-23 06:29] LABS: Hematocrit 23.7 % (36.0-45.0)
--- NOTE | 2020-09-23 06:32 | P.PN ---
Subjective Date of Service: 09/23/20 Chief Complaint: Severe sepsis Subjective: Other (Patient is stable. Patient is alert.) Physical Examination - Vital Signs Temperature: 98.4 F Blood Pressure: 90/60 Pulse: 89 Respirations: 18 Pulse Ox (%): 98 - Studies Laboratory Data (last 24 hrs) 09/23/20 03:36: Sodium 142, Potassium 3.4 L, BUN 12, Creatinine 0.27 L, Glucose 90, Magnesium 1.8, Total Bilirubin 6.7 H*, AST 36, ALT 25, Alkaline Phosphatase 335 H, Triglycerides 103, Cholesterol 140, HDL Cholesterol 9 L, Cholesterol/HDL Ratio 15.56 09/23/20 03:36: WBC 15.10 H D, Hgb 7.6 L, Hct 23.9 L, Plt Count 321 D 09/22/20 11:57: PT 17.1 H, INR 1.48, APTT 27.1 09/22/20 11:57: WBC 21.20 H*, Hgb 8.9 L, Hct 27.5 L, Plt Count 482 H 09/22/20 11:57: Sodium 140, Potassium 3.1 L, BUN 10, Creatinine 0.50 L, Glucose 67 L, Total Bilirubin 9.3 H*, AST 54 H, ALT 35, Alkaline Phosphatase 501 H, Lipase 76 Assessment & Plan Discharge Plan: Transfer Plan to discharge in: 48 Hours Physician Review Additional Text: COVID: Negative CT scan: COMPARISON: Chest For Pe Angio dated 07/20/2020 TECHNIQUE: Biphasic, helical CT imaging of the abdomen and pelvis was performed following 100 ml non-ionic IV contrast. No oral contrast. All CT scans are performed using dose optimization technique as appropriate and may include automated exposure control or mA/KV adjustment according to patient size. FINDINGS: Cardiac silhouette is prominent. No pericardial effusion or pericardial thickening. Left greater than right moderately large pleural effusions are present. There is partial atelectasis of the lower lobes. Pneumonia within the atelectatic lung is not excluded but felt to be relatively low in likelihood. No pneumothorax. No suspicion for empyema. Liver is grossly abnormal. Specific malignancy history is not detailed. A percutaneous catheter is in place entering the left lobe in the midline. This courses to the liver parenchyma into the biliary tree. This is presumably for chemotherapy infusion. No portal vein thrombus. Heterogeneity of the hepatic parenchyma is seen. Focal area of enhancement or calcification 15 mm in size is present in the mid right lobe. A similar 2 centimeter focus present in the deep central right lobe. No primary pancreatic process confirmed. Heterogeneity of the pancreatic parenchyma is seen throughout. No splenic abnormality seen. Cholecystectomy clips are present. Symmetric renal function is seen with no hydronephrosis or suspicious renal mass. No pyelonephritis or acute parenchymal process. No bladder abnormalities. No adrenal abnormalities. No uterine abnormality suspected. Ovaries are not clearly distinguishable from the adjacent non-opacified bowel. An ovarian process is not suspected. No gastric dilatation or gastric wall thickening. No dilated small bowel loops. Fluid fills but does not dilate the transverse and right-side of the colon. Appendix is not clearly identifiable as a unique structure. Circumferential nodular wall thickening of the descending colon is present with luminal narrowing. This has the appearance of a malignancy and may be a known finding. A colon malignancy history was detailed on the July 20 CT chest study. No free air or pneumatosis. Peritoneal and retroperitoneal fatty tissues are edematous. No abnormal free fluid collection. There is no abscess identified. A 4 centimeter fat only periumbilical hernia is present. The neck is 2.5 cm. No bulky lymphadenopathy. No suspicious bony findings. IMPRESSION: Malignant mass in the descending colon. Circumferential wall thickening narrows the lumen but is nonobstructive. Abnormal appearance to the liver with heterogeneity and areas of abnormal focal enhancement or mineralization. There is an indwelling catheter presumed to be for chemotherapy infusion. No abscess identified. No pyelonephritis or acute infectious GI process seen. Pronounced fluid retention throughout the subcutaneous fatty tissues. Moderate severity bilateral pleural effusions are present. CXR: COMPARISON: CT chest July 20, portable chest July 20 TECHNIQUE: AP portable chest image was obtained 09/22/2020 12:47 pm . FINDINGS: Lung volumes are reduced compared to the prior study. Linear stranding abutting the right hemidiaphragm is probably atelectasis rather than infiltrate. Mid and upper lung castro are clear of consolidation or new mass lesion. Heart and vasculature are normal. No pneumothorax. Bilateral pleural effusions have developed since the comparison. No acute bony abnormality seen. No acute aortic finding. Sternotomy wires have been placed since the comparison. Radiopaque tubing overlies the midline abdomen possibly within the hepatic parenchyma based on the July CT study. Right-sided Port-A-Cath is in place. IMPRESSION: Shallow inspiration exam showing bilateral pleural effusions, small in size, with right base atelectasis. No convincing evidence for pneumonia or acute lung parenchymal process. ECHO: MEASUREMENTS (cm) DIASTOLIC (NORMALS) SYSTOLIC (NORMALS) IVSd 1.1 (0.6-1.2) LA Diam 3.7 (1.9-4.0) LVEF 62% LVIDd 4.4 (3.5-5.7) LVIDs 2.9 (2.0-3.5) %FS 33% LVPWd 1.1 (0.6-1.2) Ao Diam 3.4 (2.0-3.7) 2 DIMENSIONAL ASSESSMENT: RIGHT ATRIUM: NORMAL LEFT ATRIUM: NORMAL RIGHT VENTRICLE: NORMAL LEFT VENTRICLE: NORMAL TRICUSPID VALVE: MODERATE TRICUSPID REGURGITATION MITRAL VALVE: MILD MITRAL REGURGITATION PULMONIC VALVE: NORMAL AORTIC VALVE: MILD AORTIC REGURGITATION PERICARDIAL EFFUSION: SMALL AORTIC ROOT: NORMAL LEFT VENTRICULAR WALL MOTION: NORMAL. DOPPLER/COLOR FLOW: SEE BELOW. COMMENTS: NORMAL LEFT VENTRICULAR EJECTION FRACTION 55-60% WITH NORMAL WALL MOTION. MILD AORTIC REGURGITATION, MILD MITRAL REGURGITATION. MODERATE TRICUSPID REGURGITATION. PLEURAL EFFUSION IS PRESENT. NO CLEAR VEGETATION IS SEEN, IF INDICATED RECOMMEND TRANSESOPHAGEAL ECHOCARDIOGRAM. Physical exam: General: Alert, In no apparent distress, Oriented x3 HEENT: Atraumatic, PERRLA, Mucous membr. moist/pink, EOMI, Sclerae nonicteric Neck: Supple, 2+ carotid pulse no bruit, No LAD, Without JVD or thyroid abnormality Respiratory: Diminished, Crackles/rales Cardiovascular: No edema, Regular rate/rhythm, Normal S1 S2, Other (Port-A-Cath to chest wall) Capillary refill: <2 Seconds Gastrointestinal: No tenderness, Other (Percutaneous drain, biliary stents in place) Musculoskeletal: No tenderness Integumentary: No rashes Neurological: Normal speech, Normal strength at 5/5 x4 extr, Normal tone, Normal affect Lymphatics: No axilla or inguinal lymphadenopathy Impression: Severe sepsis with bacteremia gram-negative rods noted, unknown etiology possibly related to Port-A-Cath versus biliary stents Stage IV colon cancer with metastasis to the liver Hypertension Bilateral pleural effusions Anemia of chronic disease Hyperbilirubinemia with recent biliary stents History of percutaneous catheter in place to the left lobe of the liver Plan: Severe sepsis with bacteremia gram-negative rods noted, unknown etiology possibly related to Port-A-Cath versus biliary stents: Blood pressure still low. Will give IV fluid bolus now. Increase IV fluids to D5 half-normal at 125 cc/h. Maintain MAP of greater than 65. Blood cultures show gram-negative rods. Etiology unknown but the possibility of this may be related to Port-A-Cath and/or biliary stents. Case discussed with infectious disease. Will transfer to [facility] where she has her physicians. This is for continuity in care and consideration of removal of Port-A-Cath and possible replacement of biliary stent. IV tabetic therapy changed to meropenem for current coverage. Case discussed in detail with daughter. Daughter agrees with transfer. Await approval. Discussed advance care planning with daughter. Patient is DO NOT RESUSCITATE. Stage IV colon cancer with metastasis to the liver: CT scan showed malignant mass in the descending colon. Circumferential wall thickening noted with narrow lumen but nonobstructive at this time. Liver shows metastasis. Bilateral pleural effusions noted Hypertension: Blood pressure remains low. Continue with aggressive IV fluid hydration. Hold all blood pressure medication.. Bilateral pleural effusions with atelectasis: We will monitor this closely. Recheck chest x-ray tomorrow. Encourage incentive spirometer. Anemia of chronic disease: Maintain hemoglobin above 7.0. May need transfusion during the course of her stay. Hyperbilirubinemia with recent biliary stents: Total bilirubin improved. Will monitor this closely. Will transfer to [facility] where she gets most of her care. Patient will likely need removal of biliary stents due to bacteremia. Continue with above plan of care. History of percutaneous catheter in place to the left lobe of the liver: This is likely for his chemotherapy. Overall stable DVT PPX: Lovenox Code status: DNR Discharge Plan: Transfer to [facility] Time Spent Managing Pts Care (In Minutes): 55
[2020-09-23] MEDS ORDERED: FAMOTIDINE 20 MG/2 ML VIAL IV SCH (09:00)
[2020-09-23] MEDS ORDERED: CEFEPIME/SWI 1gm 10 ML IV SCH (09:00)
[2020-09-23] MEDS: FOLIC ACID 1 MG in NA CHLORIDE 0.9% 50 ML IV SCH (09:00)
[2020-09-23] MEDS: ENOXAPARIN 40 MG/0.4 ML SQ SCH (09:00)
[2020-09-23] MEDS: LINEZOLID 600 MG IVPB 600 MG/300 ML BAG IV SCH (09:00)
[2020-09-23] MEDS: THIAMINE 200 MG/2 ML INJ IVP SCH (09:00)
[2020-09-23] MEDS ORDERED: FOLIC ACID 5 MG/ML VIAL IVP SCH (09:00)
--- NOTE | 2020-09-23 09:01 | RAD REPORT ---
EXAM DESCRIPTION: US - Abdomen Exam Complete - 09/23/2020 8:42 am CLINICAL HISTORY: Abdominal pain/elevated bilirubin COMPARISON: September 22, 2020 cat scan FINDINGS: Heterogeneous hepatic echotexture. Several small calcified hepatic lesions. Mild dilatatio n of the intrahepatic biliary tree. The common bile duct it is normal caliber. Biliary stent present. A gallstone is not seen. The gallbladder wall is not thickened. The biliary tree is normal caliber. The pancreas is normal in size and echotexture The right kidney measures 10 centimeters with a normal echotexture. The left kidney measures 11 centimeters with a normal echotexture. The spleen measures 9 centimeters. The abdominal aorta unremarkable. Filter within the IVC. Bilateral pleural effusions IMPRESSION: Heterogeneous hepatic echotexture. Several calcified hepatic lesions probably metastases . Mild dilatation of the intrahepatic. Biliary tree. Biliary stent is place
[2020-09-23] MEDS ORDERED: THIAMINE 200 MG/2 ML INJ ONE (09:55)
[2020-09-23] MEDS ORDERED: ENOXAPARIN 40 MG/0.4 ML SQ ONE (09:56)
[2020-09-23] MEDS ORDERED: NA CHLORIDE 0.9% 50 ML ONE (09:56)
[2020-09-23] MEDS ORDERED: FAMOTIDINE 20 MG/2 ML VIAL IV ONE (09:56)
[2020-09-23] MEDS ORDERED: NA CHLORIDE 0.9% 1,000 ML ONE (09:56)
--- NOTE | 2020-09-23 12:35 | P.CNS ---
Date of Consult: 09/23/20 Chief Complaint: Severe sepsis History of Present Illness: Patient is a 74-year-old female with a past medical history of stage IV colon cancer metastasis to the liver with a biliary stent in place, history of abdominal aortic aneurysm status post repair approximately 1.5 months ago, presented to the emergency department due to fever and weakness. Patient was recently hospitalized at [facility] for further evaluation due to metastatic colon cancer which she had a Port-A-Cath and biliary stent placed. In the ED patient was found to be febrile with a fever of 101, WBC of 21.2, hemoglobin 8.6, platelets 482, CRP 79.8, procal 0.9, and lactic acid 2.9 with repeat being 2.4. Patient admitted to floor due to severe sepsis of unknown origin. Urinalysis performed on 09/22 was grossly negative, repeat taken on 09/23 pending. Blood culture performed on 09/22 growing gram-negative rods in 4/4 bottles, awaiting full culture report. Chest x-ray negative for any acute pulmonary process. Abdominal/pelvis CT showed pronounced fluid collections throughout the subcutaneous fatty tissue with metastatic findings in the colon and liver. Patient received a single dose of vancomycin and is now currently on cefepime. Patient is tolerating antibiotic well with no nausea, vomiting, diarrhea. WBC down trending. Allergies No Known Allergies Allergy (Unverified 09/22/20 23:42) - Past Medical/Surgical History -: Stage IV colon cancer with mets to liver -: Hypertension -: Biliary stenting -: Port-A-Cath placement Psychosocial/ Personal History: Patient currently lives at home with daughter - Social History Alcohol use: No CD- Drugs: No Caffeine use: Yes Place of Residence: Home Review of Systems 10-point ROS is otherwise unremarkable Physical Examination Temp Pulse Resp BP Pulse Ox 98.4 F 89 18 90/60 98 09/23/20 06:31 09/23/20 06:31 09/23/20 06:31 09/23/20 06:31 09/23/20 06:31 General: Alert, In no apparent distress, Oriented x3, Cachectic HEENT: Atraumatic, Normocephalic Neck: Supple, 2+ carotid pulse no bruit Respiratory: Clear to auscultation bilaterally, Normal air movement Cardiovascular: Normal pulses, Regular rate/rhythm Capillary refill: <2 Seconds Gastrointestinal: Normal bowel sounds, Non-distended, Other (Biliary drain) Musculoskeletal: No clubbing, No swelling, No contractures Integumentary: No rashes, No breakdown Urinary: Pinon catheter External genitalia: No edema, No lesions, No masses Laboratory Data (last 24 hrs) 09/22/20 11:57: WBC 21.20 H*, Hgb 8.9 L, Hct 27.5 L, Plt Count 482 H 09/22/20 11:57: Sodium 140, Potassium 3.1 L, BUN 10, Creatinine 0.50 L, Glucose 67 L, Total Bilirubin 9.3 H*, AST 54 H, ALT 35, Alkaline Phosphatase 501 H, Lipase 76 Conclusions/Impression: Antibiotics: The patient received 2 doses of cefepime, 1 dose of vancomycin Patient currently on: Meropenem Start: 09/23 Stop: -- Assessment: -severe sepsis of unknown origin -leukocytosis with left shift and elevated inflammatory markers -history of stage IV colon cancer with mets to liver -anemia -protein caloric malnutrition Plan: -severe sepsis noted on admission. WBC down down trending. Blood cultures performed on 09/22 grew gram-negative rods in 4/4 bottles, awaiting full culture report. Source of infection not identified. Urinalysis on 09/22 grossly negative, repeat on 09/23 pending. Chest x-ray shows no acute cardiopulmonary process. Skin assessment negative for any ulcers/skin abrasions. Possible source of infection include: Recent Port-A-Cath placement, recent biliary stent/drain placement. Abdominal CT and pelvis showed pronounced fluid retention throughout the subcutaneous fatty tissue, possible source of infection could also be spontaneous bacterial peritonitis due to colon cancer mets to liver. Internal medicine team attempted transfer to [facility], [facility], [facility], [facility] for higher level of care however was denied due to it no beds available. -the patient received 2 doses of cefepime and 1 dose of vancomycin. Patient currently on monotherapy with meropenem. Continue this antibiotic can tell full blood culture reports are received. -leukocytosis with a left shift: Down trending. Patient is now afebrile. Inflammatory markers elevated, continue to trend. * Procal: 0.91 * CRP: 79.8 -anemia: Continue to monitor H&H -protein caloric malnutrition severe: The albumin of 1.1. Recommend supplemental Ensure drinks. -medical management per primary team -continue to monitor CBC and BMP -continue to monitor for signs infection Plan of care discussed with Dr. Garcia. Thank you for consultation.
--- NOTE | 2020-09-23 13:36 | ECHO ---
HEIGHT: 5 ft 6 in WEIGHT: 74 lb 13.44 oz DATE OF STUDY: 09/23/[address]: Emmanuel Zendejas DO 2-DIMENSIONAL: YES M.MODE: YES DOPPLER: YES COLOR FLOW: YES TDS: NO PORTABLE: NO DEFINITY: NO BUBBLE STUDY: NO DIAGNOSIS: SEPSIS, BACTEREMIA CARDIAC HISTORY: CATHERIZATION: NO SURGERY: YES PROSTHETIC VALVE: NO PACEMAKER: NO MEASUREMENTS (cm) DIASTOLIC (NORMALS) SYSTOLIC (NORMALS) IVSd 1.1 (0.6-1.2) LA Diam 3.7 (1.9-4.0) LVEF 62% LVIDd 4.4 (3.5-5.7) LVIDs 2.9 (2.0-3.5) %FS 33% LVPWd 1.1 (0.6-1.2) Ao Diam 3.4 (2.0-3.7) 2 DIMENSIONAL ASSESSMENT: RIGHT ATRIUM: NORMAL LEFT ATRIUM: NORMAL RIGHT VENTRICLE: NORMAL LEFT VENTRICLE: NORMAL TRICUSPID VALVE: MODERATE TRICUSPID REGURGITATION MITRAL VALVE: MILD MITRAL REGURGITATION PULMONIC VALVE: NORMAL AORTIC VALVE: MILD AORTIC REGURGITATION PERICARDIAL EFFUSION: SMALL AORTIC ROOT: NORMAL LEFT VENTRICULAR WALL MOTION: NORMAL. DOPPLER/COLOR FLOW: SEE BELOW. COMMENTS: NORMAL LEFT VENTRICULAR EJECTION FRACTION 55-60% WITH NORMAL WALL MOTION. MILD AORTIC REGURGITATION, MILD MITRAL REGURGITATION. MODERATE TRICUSPID REGURGITATION. PLEURAL EFFUSION IS PRESENT. NO CLEAR VEGETATION IS SEEN, IF INDICATED RECOMMEND TRANSESOPHAGEAL ECHOCARDIOGRAM. TECHNOLOGIST: SHY PASTOR
[2020-09-23] MEDS ORDERED: NA CHLORIDE 0.9% 1,000 ML IV ONE (15:06)
[2020-09-23] MEDS: D5 0.45 NS 1,000 ML IV SCH (16:00)
[2020-09-23] MEDS: Meropenem 500 MG/100 ML BAG IV SCH (17:00)
[2020-09-23] MEDS ORDERED: NA CHLORIDE 0.9% 100 ML ONE (17:49)
[2020-09-23] MEDS ORDERED: Meropenem 500 MG VIAL IV ONE (17:49)
[2020-09-23] MEDS ORDERED: D5 0.45 NS 1,000 ML IV ONE (17:49)
[2020-09-23 19:19] VITALS: BMI 27.4
--- NOTE | 2020-09-23 21:08 | P.PN ---
Date of Service: 09/23/20 Transfer was initiated to [facility] Spoke with Dr. Guerrero at [facility] regarding patient's care. After discussion Dr. Guerrero spoke with patient's primary oncologist as well as their ICU team, it was determined that it would currently be a contraindication to remove/exchange patient's percutaneous biliary catheter/drain and they do not have any ICU or telemetry beds at this time. [facility] declined for capacity and also stated that as the drain cannot be removed we should be able to manage the patient here further. Will discuss further with hospitalist attending.
[2020-09-24] MEDS: Meropenem 500 MG/100 ML BAG IV SCH ×2 (01:00→09:00)
[2020-09-24] MEDS ORDERED: Meropenem 500 MG VIAL IV ONE (01:22)
[2020-09-24] MEDS ORDERED: NA CHLORIDE 0.9% 100 ML ONE (01:22)
[2020-09-24 03:40] LABS: Absolute Lymphocytes (CBC) 3.5 K/uL (0.7-4.9); Basophils % 0.2 % (0-1.3); Hematocrit 26.2 % (36.0-45.0); MPV 7.8 fL (7.6-11.3); RBC Red Blood Cell Count 2.73 M/uL (3.86-4.86)
[2020-09-24 03:51] LABS: ALT/SGPT 24 U/L (12-78); AST/SGOT 34 U/L (15-37); Alkaline Phosphatase 316 U/L (45-117); BUN Blood Urea Nitrogen 11 mg/dL (7-18); Bicarbonate 22 mmol/L (21-32); Glucose Level 92 mg/dL (74-106); Magnesium 1.8 mg/dL (1.8-2.4); Potassium 3.6 mmol/L (3.5-5.1); Protein, Total 4.7 g/dL (6.4-8.2); Sodium Level 141 mmol/L (136-145)
[2020-09-24 03:52] LABS: Bilirubin Total 6.5 mg/dL (0.2-1.0)
[2020-09-24] MEDS ORDERED: MAGNESIUM SULFATE 1 gm IVPB 1 GM/100 ML BAG IV ONE (06:22)
--- NOTE | 2020-09-24 06:33 | P.PN ---
Subjective Date of Service: 09/24/20 Primary Care Provider: MD Patterson Chief Complaint: Severe sepsis Subjective: Other (Patient reports improvement. Blood pressure around 99-110 systolic. Patient on room air.) Physical Examination - Vital Signs Temperature: 98.4 F Blood Pressure: 111/70 Pulse: 76 Respirations: 20 Pulse Ox (%): 96 - Studies Microbiology Data (last 24 hrs): 09/22/20 13:20 Blood - Blood Blood Culture Gram Stain - Final 09/22/20 13:20 Blood - Blood Gram Stain - Final 09/22/20 11:57 Blood - Blood Blood Culture Gram Stain - Final 09/22/20 11:57 Blood - Blood Gram Stain - Final Assessment & Plan Discharge Plan: Transfer Plan to discharge in: 48 Hours Physician Review Additional Text: COVID: Negative CT scan: COMPARISON: Chest For Pe Angio dated 07/20/2020 TECHNIQUE: Biphasic, helical CT imaging of the abdomen and pelvis was performed following 100 ml non-ionic IV contrast. No oral contrast. All CT scans are performed using dose optimization technique as appropriate and may include automated exposure control or mA/KV adjustment according to patient size. FINDINGS: Cardiac silhouette is prominent. No pericardial effusion or pericardial thickening. Left greater than right moderately large pleural effusions are present. There is partial atelectasis of the lower lobes. Pneumonia within the atelectatic lung is not excluded but felt to be relatively low in likelihood. No pneumothorax. No suspicion for empyema. Liver is grossly abnormal. Specific malignancy history is not detailed. A percutaneous catheter is in place entering the left lobe in the midline. This courses to the liver parenchyma into the biliary tree. This is presumably for chemotherapy infusion. No portal vein thrombus. Heterogeneity of the hepatic parenchyma is seen. Focal area of enhancement or calcification 15 mm in size is present in the mid right lobe. A similar 2 centimeter focus present in the deep central right lobe. No primary pancreatic process confirmed. Heterogeneity of the pancreatic parenchyma is seen throughout. No splenic abnormality seen. Cholecystectomy clips are present. Symmetric renal function is seen with no hydronephrosis or suspicious renal mass. No pyelonephritis or acute parenchymal process. No bladder abnormalities. No adrenal abnormalities. No uterine abnormality suspected. Ovaries are not clearly distinguishable from the adjacent non-opacified bowel. An ovarian process is not suspected. No gastric dilatation or gastric wall thickening. No dilated small bowel loops. Fluid fills but does not dilate the transverse and right-side of the colon. Appendix is not clearly identifiable as a unique structure. Circumferential nodular wall thickening of the descending colon is present with luminal narrowing. This has the appearance of a malignancy and may be a known finding. A colon malignancy history was detailed on the July 20 CT chest study. No free air or pneumatosis. Peritoneal and retroperitoneal fatty tissues are edematous. No abnormal free fluid collection. There is no abscess identified. A 4 centimeter fat only periumbilical hernia is present. The neck is 2.5 cm. No bulky lymphadenopathy. No suspicious bony findings. IMPRESSION: Malignant mass in the descending colon. Circumferential wall thickening narrows the lumen but is nonobstructive. Abnormal appearance to the liver with heterogeneity and areas of abnormal focal enhancement or mineralization. There is an indwelling catheter presumed to be for chemotherapy infusion. No abscess identified. No pyelonephritis or acute infectious GI process seen. Pronounced fluid retention throughout the subcutaneous fatty tissues. Moderate severity bilateral pleural effusions are present. CXR: COMPARISON: CT chest July 20, portable chest July 20 TECHNIQUE: AP portable chest image was obtained 09/22/2020 12:47 pm . FINDINGS: Lung volumes are reduced compared to the prior study. Linear stranding abutting the right hemidiaphragm is probably atelectasis rather than infiltrate. Mid and upper lung castro are clear of consolidation or new mass lesion. Heart and vasculature are normal. No pneumothorax. Bilateral pleural effusions have developed since the comparison. No acute bony abnormality seen. No acute aortic finding. Sternotomy wires have been placed since the comparison. Radiopaque tubing overlies the midline abdomen possibly within the hepatic parenchyma based on the July CT study. Right-sided Port-A-Cath is in place. IMPRESSION: Shallow inspiration exam showing bilateral pleural effusions, small in size, with right base atelectasis. No convincing evidence for pneumonia or acute lung parenchymal process. ECHO: MEASUREMENTS (cm) DIASTOLIC (NORMALS) SYSTOLIC (NORMALS) IVSd 1.1 (0.6-1.2) LA Diam 3.7 (1.9-4.0) LVEF 62% LVIDd 4.4 (3.5-5.7) LVIDs 2.9 (2.0-3.5) %FS 33% LVPWd 1.1 (0.6-1.2) Ao Diam 3.4 (2.0-3.7) 2 DIMENSIONAL ASSESSMENT: RIGHT ATRIUM: NORMAL LEFT ATRIUM: NORMAL RIGHT VENTRICLE: NORMAL LEFT VENTRICLE: NORMAL TRICUSPID VALVE: MODERATE TRICUSPID REGURGITATION MITRAL VALVE: MILD MITRAL REGURGITATION PULMONIC VALVE: NORMAL AORTIC VALVE: MILD AORTIC REGURGITATION PERICARDIAL EFFUSION: SMALL AORTIC ROOT: NORMAL LEFT VENTRICULAR WALL MOTION: NORMAL. DOPPLER/COLOR FLOW: SEE BELOW. COMMENTS: NORMAL LEFT VENTRICULAR EJECTION FRACTION 55-60% WITH NORMAL WALL MOTION. MILD AORTIC REGURGITATION, MILD MITRAL REGURGITATION. MODERATE TRICUSPID REGURGITATION. PLEURAL EFFUSION IS PRESENT. NO CLEAR VEGETATION IS SEEN, IF INDICATED RECOMMEND TRANSESOPHAGEAL ECHOCARDIOGRAM. Physical exam: General: Alert, In no apparent distress, Oriented x3. Blood pressure stable. HEENT: Atraumatic, PERRLA, Mucous membr. moist/pink, EOMI, Sclerae nonicteric Neck: Supple, 2+ carotid pulse no bruit, No LAD, Without JVD or thyroid abno rmality Respiratory: Clear anteriorly. Currently on room air Cardiovascular: No edema, Regular rate/rhythm, Normal S1 S2, Other (Port-A-Cath to chest wall) Capillary refill: <2 Seconds Gastrointestinal: No tenderness, Other (Percutaneous drain) Musculoskeletal: No tenderness Integumentary: No rashes Neurological: Normal speech, Normal strength at 5/5 x4 extr, Normal tone, Normal affect Lymphatics: No axilla or inguinal lymphadenopathy Impression: Severe sepsis with bacteremia gram-negative rods noted, unknown etiology possibly related to Port-A-Cath versus biliary stents Stage IV colon cancer with metastasis to the liver Hypertension Bilateral pleural effusions Anemia of chronic disease Hyperbilirubinemia with History of percutaneous catheter in place to the left lobe of the liver Plan: Severe sepsis with bacteremia gram-negative rods noted, unknown etiology possibly related to Port-A-Cath versus biliary stents: Blood pressure slightly low today. Will give IV fluid bolus today. Continue with IV fluids to D5 half-normal at 125 cc/h. Maintain MAP of greater than 65. 4 out of 4 blood c ultures show gram-negative rods. Patient remains on IV meropenem 500 mg 3 times a day. Etiology unknown. Patient with Port-A-Cath and percutaneous catheter placed near the left lobe of the liver. Patient was to be transferred to [facility] for continuity of care. They are to capacity. Transfer was not able to be done yesterday. Will need to get a hold of oncology to go over her plan of care from an oncological perspective. They recommended not to remove percutaneous catheter. Need to consider removal of Port-A-Cath due to her bacteremia. Will discuss with infectious disease. Spoke with family at length concerning plan of care. Patient remains DNR. Need to consider transfer to [facility] today due to lack of beds locally. Spoke with family about this. They will decide if okay to transfer. Need to discuss with infectious disease about the possibility of etiology of her bacteremia. Echocardiogram pending. Continue to monitor closely. Stage IV colon cancer with metastasis to the liver: CT scan showed malignant mass in the descending colon. Circumferential wall thickening noted with narrow lumen but nonobstructive at this time. Liver shows metastasis. Bilateral pleural effusions noted. Continue clear liquid diet. We will try to get a hold of her oncologist at [facility] to review her history and plan for the future. Hypertension: Blood pressure improved but still slightly low.. Continue with aggressive IV fluid hydration. Hold all blood pressure medication. Will give fluid bolus today.. Bilateral pleural effusions with atelectasis: Will monitor this closely. Encourage incentive spirometer. Will check chest x-ray. Anemia of chronic disease: Maintain hemoglobin above 7.0. May need transfusion during the course of her stay. Hyperbilirubinemia with history of percutaneous catheter in place to the left lobe of the liver: MD Patterson recommended not to remove percutaneous catheter due to her bacteremia. We will try to get a hold of her oncologist to review her history. Bilirubin improved. Will monitor closely. DVT PPX: Lovenox Code status: DNR Discharge Plan: Transfer to [facility] declined due to lack of capacity. Consider transfer to [place] due to lack of appropriate beds locally. Time Spent Managing Pts Care (In Minutes): 55
[2020-09-24] MEDS ORDERED: POTASSIUM CL SA 10 MEQ TAB PO ONE ×2 (06:36→06:57)
[2020-09-24] MEDS ORDERED: D5 0.45 NS 1,000 ML IV ONE ×2 (06:57→17:02)
[2020-09-24 07:16] LABS: Urine Blood Negative (Negative); Urine Glucose Trace (Negative); Urine Protein 2+ (Negative); Urine Specific Gravity 1.015 (1.005-1.030)
[2020-09-24] MEDS ORDERED: NA CHLORIDE 0.9% 250 ML IV ONE (08:50)
[2020-09-24] MEDS ORDERED: FAMOTIDINE 20 MG/2 ML VIAL IV SCH (09:00)
[2020-09-24] MEDS ORDERED: Meropenem 500 MG/100 ML BAG IV SCH (09:00)
[2020-09-24] MEDS ORDERED: ENOXAPARIN 40 MG/0.4 ML SQ ONE (09:48)
[2020-09-24] MEDS ORDERED: THIAMINE 200 MG/2 ML INJ ONE (09:48)
[2020-09-24] MEDS ORDERED: FOLIC ACID 5 MG/ML VIAL ONE (09:50)
[2020-09-24] MEDS ORDERED: NA CHLORIDE 0.9% 0 ML ONE (09:51)
[2020-09-24] MEDS: D5 0.45 NS 1,000 ML IV SCH ×2 (09:56)
[2020-09-24] MEDS: THIAMINE 200 MG/2 ML INJ IVP SCH (09:58)
[2020-09-24] MEDS: ENOXAPARIN 40 MG/0.4 ML SQ SCH (09:59)
[2020-09-24] MEDS: FOLIC ACID 1 MG in NA CHLORIDE 0.9% 50 ML IV SCH (10:06)
[2020-09-24] MEDS ORDERED: NA CHLORIDE 0.9% 250 ML ONE (10:13)
--- NOTE | 2020-09-24 11:06 | P.PN ---
Subjective Date of Service: 09/24/20 Primary Care Provider: MD Patterson Chief Complaint: Severe sepsis Patient seen examined at bedside, doing well. Afebrile, leukocytosis down trending. Patient tolerating antibiotics well with no nausea, vomiting, diarrhea. On clear liquid diet. Review of Systems 10-point ROS is otherwise unremarkable Physical Examination - Vital Signs Temperature: 98.4 F Blood Pressure: 111/70 Pulse: 76 Respirations: 20 Pulse Ox (%): 96 - Studies Laboratory Last Values WBC 21.20 K/uL (4.3-10.9) H* 09/22/20 11:57 RBC 2.90 M/uL (3.86-4.86) L 09/22/20 11:57 Hgb 8.9 g/dL (12.0-15.0) L 09/22/20 11:57 Hct 27.5 % (36.0-45.0) L 09/22/20 11:57 MCV 94.8 fL (80-100) D 09/22/20 11:57 MCH 30.9 pg (27.0-35.0) 09/22/20 11:57 MCHC 32.6 g/dL (32.0-36.0) 09/22/20 11:57 RDW 16.8 % (12.1-15.2) H 09/22/20 11:57 Plt Count 482 K/uL (152-406) H 09/22/20 11:57 MPV 7.2 fL (7.6-11.3) L 09/22/20 11:57 Neutrophils % 80.9 % (41.7-73.7) H 09/22/20 11:57 Lymphocytes % 14.7 % (15.3-44.8) L 09/22/20 11:57 Monocytes % 3.7 % (3.3-12.3) 09/22/20 11:57 Eosinophils % 0.2 % (0-4.4) 09/22/20 11:57 Basophils % 0.5 % (0-1.3) 09/22/20 11:57 Absolute Neutrophils 17.2 K/uL (1.8-8.0) H 09/22/20 11:57 Segmented Neutrophils 79 % (40-80) 09/22/20 11:57 Band Neutrophils 3 % (0-1) H 09/22/20 11:57 Absolute Lymphocytes 3.1 K/uL (0.7-4.9) 09/22/20 11:57 Lymphocytes 16 % (15-42) 09/22/20 11:57 Monocytes 1 % (0-10) 09/22/20 11:57 Absolute Monocytes 0.8 K/uL (0.1-1.3) 09/22/20 11:57 Eosinophils 1 % (0-3) 09/22/20 11:57 Absolute Eosinophils 0.0 K/uL (0-0.5) 09/22/20 11:57 Absolute Basophils 0.1 K/uL (0-0.5) 09/22/20 11:57 Platelet Estimate Adeq 09/22/20 11:57 Morphology Comment Not seen (NOT SEEN) 09/22/20 11:57 PT 17.1 SECONDS (9.5-12.5) H 09/22/20 11:57 INR 1.48 09/22/20 11:57 APTT 27.1 SECONDS (24.3-36.9) 09/22/20 11:57 Sodium 140 mmol/L (136-145) 09/22/20 11:57 Potassium 3.1 mmol/L (3.5-5.1) L 09/22/20 11:57 Chloride 109 mmol/L (98-107) H 09/22/20 11:57 Carbon Dioxide 23 mmol/L (21-32) 09/22/20 11:57 BUN 10 mg/dL (7-18) 09/22/20 11:57 Creatinine 0.50 mg/dL (0.55-1.3) L 09/22/20 11:57 Estimated GFR > 90 mL/min (=/>90) 09/22/20 11:57 Glucose 67 mg/dL (74-106) L 09/22/20 11:57 POC Glucose 90 mg/dL (65-120) 09/22/20 14:38 Lactic Acid 2.4 mmol/L (0.4-2.0) H 09/22/20 16:29 Calcium 7.5 mg/dL (8.5-10.1) L 09/22/20 11:57 Ferritin 302.6 ng/mL (8-388) 09/22/20 11:57 Total Bilirubin 9.3 mg/dL (0.2-1.0) H* 09/22/20 11:57 Direct Bilirubin 7.7 mg/dL (0-0.2) H 09/22/20 11:57 AST 54 U/L (15-37) H 09/22/20 11:57 ALT 35 U/L (12-78) 09/22/20 11:57 Alkaline Phosphatase 501 U/L (45-117) H 09/22/20 11:57 Creatine Kinase 27 U/L (26-192) 09/22/20 11:57 CK-MB (CK-2) < 1.0 ng/mL (1.0-3.6) L 09/22/20 11:57 Rapid Troponin I 0.02 ng/mL (0.0-0.045) 09/22/20 11:57 C-Reactive Protein 79.80 mg/L (<3.00) H 09/22/20 11:57 Serum Total Protein 5.7 g/dL (6.4-8.2) L 09/22/20 11:57 Albumin 1.3 g/dL (3.4-5.0) L 09/22/20 11:57 Globulin 4.4 g/dL (2.3-3.5) H 09/22/20 11:57 Albumin/Globulin Ratio 0.3 (1.1-1.8) L 09/22/20 11:57 Lipase 76 U/L (73-393) 09/22/20 11:57 Procalcitonin 0.91 ng/mL (<0.050) H 09/22/20 11:57 Urine pH 7.0 (5.0-7.0) 09/22/20 15:14 Ur Specific Noble 1.015 (1.005-1.030) 09/22/20 15:14 Glucose (UA)(Auto) Trace (Negative) 09/22/20 15:14 Urine Ketones Negative (Negative) 09/22/20 15:14 Urine Blood Negative (Negative) 09/22/20 15:14 Urine Nitrite Negative (Negative) 09/22/20 15:14 Ur Leukocyte Esterase Negative (Negative) 09/22/20 15:14 Urine RBC <5 /HPF (NONE SEEN) 09/22/20 15:12 Urine WBC <5 /HPF (<5) 09/22/20 15:12 Ur Squamous Epith Cells <5 /HPF (NONE SEEN) 09/22/20 15:12 Urine Bacteria <20 /HPF (<20) 09/22/20 15:12 Urine Culture Reflexed Not needed 09/22/20 15:12 Urine Total Protein Negative (Negative) 09/22/20 15:14 SARS-CoV-2 Rap RNA(RT-PCR) Negative (NEGATIVE) 09/22/20 14:25 ABO/Rh O NEGATIVE 09/22/20 11:57 Solid Phase Ab Screen Negative 09/22/20 11:57 Microbiology Data (last 24 hrs): 09/22/20 11:57 Blood - Blood Blood Culture Gram Stain - Final 09/22/20 11:57 Blood - Blood Gram Stain - Final 09/22/20 13:20 Blood - Blood Blood Culture Gram Stain - Final 09/22/20 13:20 Blood - Blood Gram Stain - Final Assessment And Plan - Plan Physial Exam: General: Alert, In no apparent distress, Oriented x3, Cachectic HEENT: Atraumatic, Normocephalic Neck: Supple, 2+ carotid pulse no bruit Respiratory: Clear to auscultation bilaterally, Normal air movement Cardiovascular: Normal pulses, Regular rate/rhythm Capillary refill: <2 Seconds Gastrointestinal: Normal bowel sounds, Non-distended, Other (Biliary drain) Musculoskeletal: No clubbing, No swelling, No contractures Integumentary: No rashes, No breakdown Urinary: Pinon catheter External genitalia: No edema, No lesions, No masses Laboratory Data (last 24 hrs) Conclusions/Impression: Antibiotics: The patient received 2 doses of cefepime, 1 dose of vancomycin Patient currently on: Meropenem Start: 09/23 Stop: -- Assessment: -severe sepsis of unknown origin -leukocytosis with left shift and elevated inflammatory markers -history of stage IV colon cancer with mets to liver -anemia -protein caloric malnutrition Plan: -severe sepsis noted on admission. WBC down down trending. Blood cultures performed on 09/22 grew gram-negative rods in 4/4 bottles, awaiting full culture report. Source of infection not identified. Urinalysis on 09/22 grossly negative, repeat on 09/23 also negative. Chest x-ray shows no acute cardiopulmonary process. Skin assessment negative for any ulcers/skin abrasions. Possible source of infection include: Recent Port-A-Cath placement, recent biliary stent/drain placement. Abdominal CT and pelvis showed pronounced fluid retention throughout the subcutaneous fatty tissue, possible source of infection could also be spontaneous bacterial peritonitis due to colon cancer mets to liver. Internal medicine team attempted [facility] to [facility] for higher level [facility] care however was denied due to it no beds available. -the patient received 2 doses of cefepime and 1 dose of vancomycin. Patient currently on monotherapy with meropenem. Continue this antibiotic can tell full blood culture reports are received. -leukocytosis with a left shift: Down trending. Patient is now afebrile. Inflammatory markers elevated, continue to trend. * Procal: 0.91 * CRP: 79.8 -anemia: Continue to monitor H&H -protein caloric malnutrition severe: The albumin of 1.1. Recommend supplemental Ensure drinks. -medical management per primary team -continue to monitor CBC and BMP -continue to monitor for signs infection Plan of care discussed with Dr. Garcia. Thank you for consultation. Physician Review Additional Text: COVID: Negative CT scan: COMPARISON: Chest For Pe Angio dated 07/20/2020 TECHNIQUE: Biphasic, helical CT imaging of the abdomen and pelvis was performed following 100 ml non-ionic IV contrast. No oral contrast. All CT scans are performed using dose optimization technique as appropriate and may include automated exposure control or mA/KV adjustment according to patient size. FINDINGS: Cardiac silhouette is prominent. No pericardial effusion or pericardial thickening. Left greater than right moderately large pleural effusions are present. There is partial atelectasis of the lower lobes. Pneumonia within the atelectatic lung is not excluded but felt to be relatively low in likelihood. No pneumothorax. No suspicion for empyema. Liver is grossly abnormal. Specific malignancy history is not detailed. A percutaneous catheter is in place entering the left lobe in the midline. This courses to the liver parenchyma into the biliary tree. This is presumably for chemotherapy infusion. No portal vein thrombus. Heterogeneity of the hepatic parenchyma is seen. Focal area of enhancement or calcification 15 mm in size is present in the mid right lobe. A similar 2 centimeter focus present in the deep central right lobe. No primary pancreatic process confirmed. Heterogeneity of th e pancreatic parenchyma is seen throughout. No splenic abnormality seen. Cholecystectomy clips are present. Symmetric renal function is seen with no hydronephrosis or suspicious renal mass. No pyelonephritis or acute parenchymal process. No bladder abnormalities. No adrenal abnormalities. No uterine abnormality suspected. Ovaries are not clearly distinguishable from the adjacent non-opacified bowel. An ovarian process is not suspected. No gastric dilatation or gastric wall thickening. No dilated small bowel loops. Fluid fills but does not dilate the transverse and right-side of the colon. Ap pendix is not clearly identifiable as a unique structure. Circumferential nodular wall thickening of the descending colon is present with luminal narrowing. This has the appearance of a malignancy and may be a known finding. A colon malignancy history was detailed on the July 20 CT chest study. No free air or pneumatosis. Peritoneal and retroperitoneal fatty tissues are edematous. No abnormal free fluid collection. There is no abscess identified. A 4 centimeter fat only periumbilical hernia is present. The neck is 2.5 cm. No bulky lymphadenopathy. No suspicious bony findings. IMPRESSION: Malignant mass in the descending colon. Circumferential wall thickening narrows the lumen but is nonobstructive. Abnormal appearance to the liver with heterogeneity and areas of abnormal focal enhancement or mineralization. There is an indwelling catheter presumed to be for chemotherapy infusion. No abscess identified. No pyelonephritis or acute infectious GI process seen. Pronounced fluid retention throughout the subcutaneous fatty tissues. Moderate severity bilateral pleural effusions are present. CXR: COMPARISON: CT chest July 20, portable chest July 20 TECHNIQUE: AP portable chest image was obtained 09/22/2020 12:47 pm . FINDINGS: Lung volumes are reduced compared to the prior study. Linear stranding abutting the right hemidiaphragm is probably atelectasis rather than infiltrate. Mid and upper lung castro are clear of consolidation or new mass lesion. Heart and vasculature are normal. No pneumothorax. Bilateral pleural effusions have developed since the comparison. No acute bony abnormality seen. No acute aortic finding. Sternotomy wires have been placed since the comparison. Radiopaque tubing overlies the midline abdomen possibly within the hepatic parenchyma based on the July CT study. Right-sided Port-A-Cath is in place. IMPRESSION: Shallow inspiration exam showing bilateral pleural effusions, small in size, with right base atelectasis. No convincing evidence for pneumonia or acute lung parenchymal process. ECHO: MEASUREMENTS (cm) DIASTOLIC (NORMALS) SYSTOLIC (NORMALS) IVSd 1.1 (0.6-1.2) LA Diam 3.7 (1.9-4.0) LVEF 62% LVIDd 4.4 (3.5-5.7) LVIDs 2.9 (2.0-3.5) %FS 33% LVPWd 1.1 (0.6-1.2) Ao Diam 3.4 (2.0-3.7) 2 DIMENSIONAL ASSESSMENT: RIGHT ATRIUM: NORMAL LEFT ATRIUM: NORMAL RIGHT VENTRICLE: NORMAL LEFT VENTRICLE: NORMAL TRICUSPID VALVE: MODERATE TRICUSPID REGURGITATION MITRAL VALVE: MILD MITRAL REGURGITATION PULMONIC VALVE: NORMAL AORTIC VALVE: MILD AORTIC REGURGITATION PERICARDIAL EFFUSION: SMALL AORTIC ROOT: NORMAL LEFT VENTRICULAR WALL MOTION: NORMAL. DOPPLER/COLOR FLOW: SEE BELOW. COMMENTS: NORMAL LEFT VENTRICULAR EJECTION FRACTION 55-60% WITH NORMAL WALL MOTION. MILD AORTIC REGURGITATION, MILD MITRAL REGURGITATION. MODERATE TRICUSPID REGURGITATION. PLEURAL EFFUSION IS PRESENT. NO CLEAR VEGETATION IS SEEN, IF INDICATED RECOMMEND TRANSESOPHAGEAL ECHOCARDIOGRAM. Physical exam: General: Alert, In no apparent distress, Oriented x3. Blood pressure stable. HEENT: Atraumatic, PERRLA, Mucous membr. moist/pink, EOMI, Sclerae nonicteric Neck: Supple, 2+ carotid pulse no bruit, No LAD, Without JVD or thyroid abnormality Respiratory: Clear anteriorly. Currently on room air Cardiovascular: No edema, Regular rate/rhythm, Normal S1 S2, Other (Port-A-Cath to chest wall) Capillary refill: <2 Seconds Gastrointestinal: No tenderness, Other (Percutaneous drain) Musculoskeletal: No tenderness Integumentary: No rashes Neurological: Normal speech, Normal strength at 5/5 x4 extr, Normal tone, Normal affect Lymphatics: No axilla or inguinal lymphadenopathy Impression: Severe sepsis with bacteremia gram-negative rods noted, unknown etiology possibly related to Port-A-Cath versus biliary stents Stage IV colon cancer with metastasis to the liver Hypertension Bilateral pleural effusions Anemia of chronic disease Hyperbilirubinemia with History of percutaneous catheter in place to the left lobe of the liver Plan: Severe sepsis with bacteremia gram-negative rods noted, unknown etiology possibly related to Port-A-Cath versus biliary stents: Blood pressure slightly low today. Will give IV fluid bolus today. Continue with IV fluids to D5 half-normal at 125 cc/h. Maintain MAP of greater than 65. 4 out of 4 blood cultures show gram-negative rods. Patient remains on IV meropenem 500 mg 3 times a day. Etiology unknown. Patient with Port-A-Cath and percutaneous catheter placed near the left lobe of the liver. Patient was to be transferred to [facility] for continuity of care. They are to capacity. Transfer was not able to be done yesterday. Will need to get a hold of oncology to go over her plan of care from an oncological perspective. They recommended not to remove percutaneous catheter. Need to consider removal of Port-A-Cath due to her bacteremia. Will discuss with infectious disease. Spoke with family at length concerning plan of care. Patient remains DNR. Need to consider transfer to [facility] today due to lack of beds locally. Spoke with family about this. They will decide if okay to transfer. Need to discuss with infectious disease about the possibility of etiology of her bacteremia. Echocardiogram pending. Continue to monitor closely. Stage IV colon cancer with metastasis to the liver: CT scan showed malignant mass in the descending colon. Circumferential wall thickening noted with narrow lumen but nonobstructive at this time. Liver shows metastasis. Bilateral pleural effusions noted. Continue clear liquid diet. We will try to get a hold of her oncologist at [facility] to review her history and plan for the future. Hypertension: Blood pressure improved but still slightly low.. Continue with ag gressive IV fluid hydration. Hold all blood pressure medication. Will give fluid bolus today.. Bilateral pleural effusions with atelectasis: Will monitor this closely. Enco urage incentive spirometer. Will check chest x-ray. Anemia of chronic disease: Maintain hemoglobin above 7.0. May need transfusion during the course of her stay. Hyperbilirubinemia with history of percutaneous catheter in place to the left lobe of the liver: [facility] recommended not to remove percutaneous catheter due to her bacteremia. We will try to get a hold of her oncologist to review her history. Bilirubin improved. Will monitor closely. DVT PPX: Lovenox Code status: DNR Discharge Plan: Transfer to [facility] declined due to lack of capacity. Consider transfer to [facility] due to lack of appropriate beds locally.
--- NOTE | 2020-09-24 11:13 | P.DS ---
Admission Date: 09/22/20 Discharge Date: 09/24/20 Primary Care Provider: MD Patterson Disposition: TRANSFER TO [facility] Discharge Condition: GOOD Reason for Admission: Severe sepsis Consultations: Infectious disease-Dr. Garcia Procedures: COVID: Negative CT scan: COMPARISON: Chest For Pe Angio dated 07/20/2020 TECHNIQUE: Biphasic, helical CT imaging of the abdomen and pelvis was performed following 100 ml non-ionic IV contrast. No oral contrast. All CT scans are performed using dose optimization technique as appropriate and may include automated exposure control or mA/KV adjustment according to patient size. FINDINGS: Cardiac silhouette is prominent. No pericardial effusion or pericardial thickening. Left greater than right moderately large pleural effusions are present. There is partial atelectasis of the lower lobes. Pneumonia within the atelectatic lung is not excluded but felt to be relatively low in likelihood. No pneumothorax. No suspicion for empyema. Liver is grossly abnormal. Specific malignancy history is not detailed. A percutaneous catheter is in place entering the left lobe in the midline. This courses to the liver parenchyma into the biliary tree. This is presumably for chemotherapy infusion. No portal vein thrombus. Heterogeneity of the hepatic parenchyma is seen. Focal area of enhancement or calcification 15 mm in size is present in the mid right lobe. A similar 2 centimeter focus present in the deep central right lobe. No primary pancreatic process confirmed. Heterogeneity of the pancreatic parenchyma is seen throughout. No splenic abnormality seen. Cholecystectomy clips are present. Symmetric renal function is seen with no hydronephrosis or suspicious renal mass. No pyelonephritis or acute parenchymal process. No bladder abnormalities. No adrenal abnormalities. No uterine abnormality suspected. Ovaries are not clearly distinguishable from the adjacent non-opacified bowel. An ovarian process is not suspected. No gastric dilatation or gastric wall thickening. No dilated small bowel loops. Fluid fills but does not dilate the transverse and right-side of the colon. Appendix is not clearly identifiable as a unique structure. Circumferential nodular wall thickening of the descending colon is present with luminal narrowing. This has the appearance of a malignancy and may be a known finding. A colon malignancy history was detailed on the July 20 CT chest study. No free air or pneumatosis. Peritoneal and retroperitoneal fatty tissues are edematous. No abnormal free fluid collection. There is no abscess identified. A 4 centimeter fat only periumbilical hernia is present. The neck is 2.5 cm. No bulky lymphadenopathy. No suspicious bony findings. IMPRESSION: Malignant mass in the descending colon. Circumferential wall thickening narrows the lumen but is nonobstructive. Abnormal appearance to the liver with heterogeneity and areas of abnormal focal enhancement or mineralization. There is an indwelling catheter presumed to be for chemotherapy infusion. No abscess identified. No pyelonephritis or acute infectious GI process seen. Pronounced fluid retention throughout the subcutaneous fatty tissues. Moderate severity bilateral pleural effusions are present. CXR: COMPARISON: CT chest July 20, portable chest July 20 TECHNIQUE: AP portable chest image was obtained 09/22/2020 12:47 pm . FINDINGS: Lung volumes are reduced compared to the prior study. Linear stranding abutting the right hemidiaphragm is probably atelectasis rather than infiltrate. Mid and upper lung castro are clear of consolidation or new mass lesion. Heart and vasculature are normal. No pneumothorax. Bilateral pleural effusions have developed since the comparison. No acute bony abnormality seen. No acute aortic finding. Sternotomy wires have been placed since the comparison. Radiopaque tubing overlies the midline abdomen possibly within the hepatic parenchyma based on the July CT study. Right-sided Port-A-Cath is in place. IMPRESSION: Shallow inspiration exam showing bilateral pleural effusions, small in size, with right base atelectasis. No convincing evidence for pneumonia or acute lung parenchymal process. ECHO: MEASUREMENTS (cm) DIASTOLIC (NORMALS) SYSTOLIC (NORMALS) IVSd 1.1 (0.6-1.2) LA Diam 3.7 (1.9-4.0) LVEF 62% LVIDd 4.4 (3.5-5.7) LVIDs 2.9 (2.0-3.5) %FS 33% LVPWd 1.1 (0.6-1.2) Ao Diam 3.4 (2.0-3.7) 2 DIMENSIONAL ASSESSMENT: RIGHT ATRIUM: NORMAL LEFT ATRIUM: NORMAL RIGHT VENTRICLE: NORMAL LEFT VENTRICLE: NORMAL TRICUSPID VALVE: MODERATE TRICUSPID REGURGITATION MITRAL VALVE: MILD MITRAL REGURGITATION PULMONIC VALVE: NORMAL AORTIC VALVE: MILD AORTIC REGURGITATION PERICARDIAL EFFUSION: SMALL AORTIC ROOT: NORMAL LEFT VENTRICULAR WALL MOTION: NORMAL. DOPPLER/COLOR FLOW: SEE BELOW. COMMENTS: NORMAL LEFT VENTRICULAR EJECTION FRACTION 55-60% WITH NORMAL WALL MOTION. MILD AORTIC REGURGITATION, MILD MITRAL REGURGITATION. MODERATE TRICUSPID REGURGITATION. PLEURAL EFFUSION IS PRESENT. NO CLEAR VEGETATION IS SEEN, IF INDICATED RECOMMEND TRANSESOPHAGEAL ECHOCARDIOGRAM. Physical exam: General: Alert, In no apparent distress, Oriented x3. Blood pressure stable. HEENT: Atraumatic, PERRLA, Mucous membr. moist/pink, EOMI, Sclerae nonicteric Neck: Supple, 2+ carotid pulse no bruit, No LAD, Without JVD or thyroid abnormality Respiratory: Clear anteriorly. Currently on room air Cardiovascular: No edema, Regular rate/rhythm, Normal S1 S2, Other (Port-A-Cath to chest wall) Capillary refill: <2 Seconds Gastrointestinal: No tenderness, Other (Percutaneous drain) Musculoskeletal: No tenderness Integumentary: No rashes Neurological: Normal speech, Normal strength at 5/5 x4 extr, Normal tone, Normal affect Lymphatics: No axilla or inguinal lymphadenopathy Medical problem list: Severe sepsis with bacteremia gram-negative rods noted, unknown etiology possibly related to Port-A-Cath versus biliary stents Stage IV colon cancer with metastasis to the liver Hypertension Bilateral pleural effusions Anemia of chronic disease Hyperbilirubinemia with History of percutaneous catheter in place to the left lobe of the liver Echocardiogram showing small pericardial effusion without vegetation Brief History of Present Illness: 74-year-old -[place] female with a history of stage IV colon cancer with metastasis to the liver with biliary stents in place, history of abdominal aortic aneurysm status post repair presents emergency room for fever, weakness. Patient reportedly had AAA with repair approximate 1.5 months ago, after recovery patient was sent to [facility] for further evaluation from colon cancer with mets to the liver, patient had Port-A-Cath and biliary stents placed while at [facility], patient then went to rehab and was recently discharged. This morning patient began running fever to 101, patient was evaluated in the emergency department labs were significant for white blood cell count 21.2 hemoglobin 8.9 hematocrit 27.5 MCV 94.8 platelets 482 sodium 140 potassium 3.1 chloride 109 creatinine 0.5 glucose 67 calcium 7.5T bili 9.3D bili 7.7 AST 54 alk phos 501 C-reactive protein 79.8 procalcitonin 0.9 lactic acid two-point 9 repeat 2.4 urinalysis negative Covid negative CT abdomen pelvis demonstrates malignant mass in the descending colon with circumferential wall thickening narrowing the lumen but is nonobstructive, abnormal appearance of the liver with heterogenicity and areas of abnormal focal enhancement or mineralization, indwelling catheter also in place no abscess identified no pyelonephritis or acute GI process is seen pronounced fluid retention throughout the subcutaneous fatty tissues moderate severity bilateral pleural effusions present. Case was discussed with daughter who helps care for patient and also with patient, transfer was attempted to both [facility], [facility], [facility], [facility] for ICU, higher level of care, biliary specialist all were declined for capacity purposes. Patient admitted for further evaluation and treatment Hospital Course: Patient presented with severe sepsis with complicated history of stage IV colon cancer with metastasis to the liver, anemia of chronic disease, chronic hyperbilirubinemia with history of percutaneous catheter to the left lobe of the liver. Patient was to be transferred to [facility] or [facility] where she mainly gets her care. This was denied due to capacity. Patient was admitted for further evaluation and treatment. Patient found to be bacteremic. Blood cultures positive for gram-negative rods. Patient remained stable with IV fluids, IV meropenem. Patient with history of Port-A-Cath and percutaneous catheter. Patient was evaluated for transfer due to limited capacity at our facility. Patient has been accepted to [facility] to continue her care. This was discussed with family who agrees with plan of care. Patient will continue with IV antibiotic therapy, IV fluids. Will recommend GI consultation and oncology evaluation at [facility]. Need to consider removal of Port-A-Cath. MD Patterson oncology recommends to not remove percutaneous catheter. Patient overall stable at this time. Patient medically stable for transfer. I have discussed the case in detail with the hospitalist who will take over patient once the patient is transported. Patient with stage IV colon cancer with metastasis to the liver. CT scan shows malignant mass in the descending colon. Circumferential wall thickening noted with narrow lumen but no obstruction noted at this time. Patient remains on clear liquids. Liver shows metastasis. We will try to find information on oncology to go over plan of care. Family reports patient has only received chemotherapy. Patient is DNR. Patient with bilateral pleural effusions with atelectasis. This can be further monitored. Patient with anemia of chronic disease. Hemoglobin stable at this time. Patient may require transfusion if hemoglobin less than 7. As mentioned above patient with hyperbilirubinemia. Patient with history of percutaneous catheter in place. MD Patterson recommends not to remove percutaneous catheter. This can be further evaluated at [facility] with GI and oncology. Vital Signs/Physical Exam: Temp Pulse Resp BP Pulse Ox 98.4 F 76 20 111/70 96 09/24/20 11:07 09/24/20 11:07 09/24/20 11:07 09/24/20 11:07 09/24/20 11:07 General: Alert, In no apparent distress, Oriented x3, Cooperative HEENT: Atraumatic Neck: Supple Respiratory: Other (Clear anteriorly. On room air.) Cardiovascular: Normal pulses, Regular rate/rhythm Gastrointestinal: Normal bowel sounds, Other (Percutaneous catheter in place. No significant abdominal pain.) Integumentary: No tenderness/swelling, No erythema, No warmth, No cyanosis Neurological: Normal speech, Normal strength at 5/5 x4 extr, Normal tone Laboratory Data at Discharge: WBC 14.70 K/uL (4.3-10.9) H 09/24/20 03:08 Hgb 8.4 g/dL (12.0-15.0) L 09/24/20 03:08 Hct 26.2 % (36.0-45.0) L 09/24/20 03:08 Plt Count 334 K/uL (152-406) 09/24/20 03:08 PT 17.1 SECONDS (9.5-12.5) H 09/22/20 11:57 INR 1.48 09/22/20 11:57 APTT 27.1 SECONDS (24.3-36.9) 09/22/20 11:57 Sodium 141 mmol/L (136-145) 09/24/20 03:08 Potassium Cancelled 09/24/20 06:36 BUN 11 mg/dL (7-18) 09/24/20 03:08 Creatinine 0.40 mg/dL (0.55-1.3) L 09/24/20 03:08 Glucose 92 mg/dL (74-106) 09/24/20 03:08 Magnesium 1.8 mg/dL (1.8-2.4) 09/24/20 03:08 Total Bilirubin 6.5 mg/dL (0.2-1.0) H* 09/24/20 03:08 AST 34 U/L (15-37) 09/24/20 03:08 ALT 24 U/L (12-78) 09/24/20 03:08 Alkaline Phosphatase 316 U/L (45-117) H 09/24/20 03:08 Triglycerides 103 mg/dL (<150) 09/23/20 03:36 Cholesterol 140 mg/dL (<200) 09/23/20 03:36 HDL Cholesterol 9 mg/dL (40-60) L 09/23/20 03:36 Cholesterol/HDL Ratio 15.56 09/23/20 03:36 Lipase 76 U/L (73-393) 09/22/20 11:57 Physician Discharge Instructions: Patient presented with severe sepsis with complicated history of stage IV colon cancer with metastasis to the liver, anemia of chronic disease, chronic hyperbilirubinemia with history of percutaneous catheter to the left lobe of the liver. Patient was to be transferred to [facility] or [facility] where she mainly gets her care. This was denied due to capacity. Patient was admitted for further evaluation and treatment. Patient found to be bacteremic. Blood cultures positive for gram-negative rods. Patient remained stable with IV fluids, IV meropenem. Patient with history of Port-A-Cath and percutaneous catheter. Patient was evaluated for transfer due to limited capacity at our facility. Patient has been accepted to [facility] to continue her care. This was discussed with family who agrees with plan of care. Patient will continue with IV antibiotic therapy, IV fluids. Will recommend GI consultation and oncology evaluation at [facility]. Need to consider removal of Port-A-Cath. MD Patterson oncology recommends to not remove percutaneous catheter. Patient overall stable at this time. Patient medically stable for transfer. I have discussed the case in detail with the hospitalist who will take over patient once the patient is transported. Patient with stage IV colon cancer with metastasis to the liver. CT scan shows malignant mass in the descending colon. Circumferential wall thickening noted with narrow lumen but no obstruction noted at this time. Patient remains on clear liquids. Liver shows metastasis. We will try to find information on oncology to go over plan of care. Family reports patient has only received chemotherapy. Patient is DNR. Patient with bilateral pleural effusions with atelectasis. This can be further monitored. Patient with anemia of chronic disease. Hemoglobin stable at this time. Patient may require transfusion if hemoglobin less than 7. As mentioned above patient with hyperbilirubinemia. Patient with history of percutaneous catheter in place. MD Patterson recommends not to remove percutaneous catheter. This can be further evaluated at [facility] with GI and oncology. Diet: Clear liqu Activity: Bedrest Followup: OOT,OOT [Primary Care Provider] - Time spent managing pt's care (in minutes): 55
[2020-09-24 16:24] VITALS: BP 125/79; TEMP 98.6
[2020-09-24 19:21] VITALS: O2SAT 100
== END 2020-09-24 18:24 | disposition short-term general hospital (02) | DRG 314 ==
LOC: ER 11:26 → ERHOLD 18:43
PROVIDERS: ADMIT Family Medicine; ATTEND Family Medicine
DX: T80.211A Bloodstream infection due to central venous catheter, initial encounter (principal); A41.50 Gram-negative sepsis, unspecified; R65.20 Severe sepsis without septic shock; T85.79XA Infection and inflammatory reaction due to other internal prosthetic devices, implants and grafts, initial encounter; C18.9 Malignant neoplasm of colon, unspecified; C78.7 Secondary malignant neoplasm of liver and intrahepatic bile duct; J90 Pleural effusion, not elsewhere classified; I31.3 Pericardial effusion (noninflammatory); J98.11 Atelectasis; D63.8 Anemia in other chronic diseases classified elsewhere; E80.6 Other disorders of bilirubin metabolism; I10 Essential (primary) hypertension; Z20.822 Contact with and (suspected) exposure to COVID-19; Z66 Do not resuscitate
CPT/HCPCS: 36415; 51702; 71045; 74177; 76700; 80048; 80053; 80061; 80076; 81003; 81015; 82550; 82553; 82728; 82947; 83605; 83690; 83735; 84145; 84439; 84443; 84484; 85014; 85018; 85025; 85610; 85730; 86140; 86850; 86900; 86901; 87040; 87077; 87186; 87205; 93005; 93306; 96374; 96375; 99285; J0692; J1650; J2020; J2185; J3370; J3411; J3475; J3480; J7030; J7050; J7799; Q9967; U0003

== ENCOUNTER 2020-09-28 22:52 | Observation (INO) | payer MEDICARE, OTHER ==
[2020-09-29] MEDS ORDERED: NA CHLORIDE 0.9% 2,000 ML ONE (00:18)
[2020-09-29 00:54] LABS: Absolute Lymphocytes (CBC) 1.2 K/uL (0.7-4.9); Basophils % 0.2 % (0-1.3); Hematocrit 22.2 % (36.0-45.0); Lymphocytes % 2.7 % (15.3-44.8); MPV 7.3 fL (7.6-11.3); Protime INR 1.72; RBC Red Blood Cell Count 2.38 M/uL (3.86-4.86)
[2020-09-29] MEDS ORDERED: ACETAMINOPHEN 650MG/RECT SUPP PR ONE (00:58)
[2020-09-29] MEDS ORDERED: ACETAMINOPHEN 325 MG TABLET ONE (01:02)
[2020-09-29] MEDS ORDERED: CEFTRIAXONE/SWI 1gm 1 GM/10 ML SYR ONE (01:04)
[2020-09-29 01:26] LABS: Blood Morphology Comment NOTED (NOT SEEN); Platelet Estimate ADEQ; Polychromasia 2+
[2020-09-29 01:28] LABS: ALT/SGPT 23 U/L (12-78); AST/SGOT 42 U/L (15-37); Albumin 1.1 g/dL (3.4-5.0); Alkaline Phosphatase 330 U/L (45-117); Amylase 58 U/L (25-115); BUN Blood Urea Nitrogen 12 mg/dL (7-18); Bicarbonate 24 mmol/L (21-32); Bilirubin Direct 6.4 mg/dL (0-0.2); Creatine Phosphokinase 18 U/L (26-192); Glucose Level 68 mg/dL (74-106); Lipase 54 U/L (73-393); Potassium 3.1 mmol/L (3.5-5.1); Protein, Total 5.1 g/dL (6.4-8.2); Sodium Level 141 mmol/L (136-145); Troponin (Emerg Dept Use Only) 0.02 ng/mL (0.0-0.045)
[2020-09-29 01:29] LABS: Bilirubin Total 7.2 mg/dL (0.2-1.0); CKMB Creatine Kinase MB < 1.0 ng/mL (1.0-3.6)
[2020-09-29] MEDS ORDERED: VANCOMYCIN 1 GM/VIAL ONE (01:41)
[2020-09-29] MEDS ORDERED: NA CHLORIDE 0.9% 250 ML ONE (01:41)
--- NOTE | 2020-09-29 01:59 | ER ---
Nurse's Notes [facility] Name: Krista Chakraborty Age: 74 yrs Sex: Female : 1945 Arrival Date: 09/28/2020 Time: 23:16 Bed 18 Private MD: Diagnosis: Severe sepsis with septic shock Presentation: 09/28 23:49 Chief complaint: EMS states: Pt was discharged from [facility], when pt ea got home daughter noted pt was tachycardic and wanted to transfer her to the hospital. Coronavirus screen: At this time, the client does not indicate any symptoms associated with coronavirus-19. Ebola Screen: No symptoms or risks identified at this time. Initial Sepsis Screen: Does the patient meet any 2 criteria? Temp <36.0*C (96.8*F)) or > 38.3*C (100.9*F). HR > 90 bpm. Yes Does the patient have a suspected source of infection? Yes:. Risk Assessment: Do you want to hurt yourself or someone else? Patient reports no desire to harm self or others. Onset of symptoms was September 28, 2020. 23:49 Method Of Arrival: EMS ea 23:49 Acuity: MARGE 3 ea Historical: - Allergies: 09/29 00:39 No Known Allergies; ea - PMHx: 00:39 colon cancer; Hypertension; liver cancer; ea - Immunization history:: Adult Immunizations unknown. - Social history:: Smoking status: unknown. Screenin:50 Abuse screen: Denies threats or abuse. Nutritional screening: No deficits noted. ea Tuberculosis screening: No symptoms or risk factors identified. Fall Risk None identified. Assessment: 00:25 General: Appears uncomfortable, Behavior is calm, cooperative. Pain: Complains of pain ea in Generalized pain. Neuro: Level of Consciousness is awake, Oriented to person, place. Respiratory: Airway is patent Respiratory effort is even, unlabored, Respiratory pattern is regular, symmetrical. Derm: Skin is dry, Skin is jaundiced, Skin temperature is hot. 01:00 Reassessment: Pt resting with eyes closed, respirations even and unlabored, chest ea expansions even and symmetrical. 01:44 Reassessment: Daughter [phone]. ea 01:55 Reassessment: Spoke with daughter and ED physician. daughter stated she wanted her ea mother to be DNR and have comfort measures only. 02:30 Reassessment: Patient and/or family updated on plan of care and expected duration. Pain ea level reassessed. Pt resting with eyes closed, respirations even and unlabored, chest expansions even and symmetrical. 03:30 Reassessment: Patient and/or family updated on plan of care and expected duration. Pain ea level reassessed. Pt resting with eyes closed, respirations even and unlabored, chest expansions even and symmetrical. 04:55 Reassessment: Patient and/or family updated on plan of care and expected duration. Pain ea level reassessed. Pt resting with eyes closed, respirations even and unlabored, chest expansions even and symmetrical. Vital Signs: 09/28 23:49 BP 85 / 50; Pulse 114; Resp 19; Temp 101.5; Pulse Ox 97% ; Weight 81.65 kg; ea 09/29 05:00 BP 101 / 64; Pulse 93; Resp 18; Temp 98.1; Pulse Ox 98% ; ea 05:52 Temp 98.8; ea ED Course: 09/28 23:16 Patient arrived in ED. mw2 23:19 Yamil Cates MD is Attending Physician. 7 23:52 Triage completed. ea 23:56 Chest Single View XRAY In Process Unspecified. EDMS 09/29 00:25 Inserted saline lock: 20 gauge in right forearm, using aseptic technique. Blood ea collected. Accessed Port-a-Cath. using ,sterile technique, per hospital protocol. Clean \T\ dry. Dressing intact. Good blood return. Flushes easily. 00:[address] prior to arrival to ED. ea 00:39 Rica Merida, TAMELA is Primary Nurse. ea 00:50 Patient has correct armband on for positive identification. Bed in low position. Call ea light in reach. Side rails up X2. 00:50 Arm band placed on right wrist. ea 01:26 Notified ED physician of a critical lab result(s). Band Count of 25% Dr Cates notified.bb 01:30 Notified ED physician of a critical lab result(s). total bilirubin 7.2 Dr Loan alonso notified. 01:57 Bryce Romero MD is Hospitalizing Provider. [facility] 05:50 No provider procedures requiring assistance completed. Patient admitted, IV remains in ea place. 07:40 Primary Nurse role handed off by Rica Merida, TAMELA 07:58 Babatunde Diaz, RN is Primary Nurse. jl7 Administered Medications: 00:35 Drug: NS 0.9% (30 ml/kg) 30 ml/kg Route: IV; Rate: bolus; Site: right antecubital; bs2 05:52 Follow up: Response: No adverse reaction; IV Status: Completed infusion; IV Intake: ea 2000ml 00:35 Drug: Rocephin (cefTRIAXone) 1 grams Route: IV; Rate: 1 calculated rate; Site: right bs2 antecubital; 01:00 Follow up: Response: No adverse reaction; IV Status: Completed infusion ea 00:50 Drug: Tylenol Suppository 650 mg Route: LA; bs2 05:52 Follow up: Temp 98.8; Response: No adverse reaction ea 01:12 Not Given (Other Intervention Used): Tylenol 650 mg PO once bs2 01:12 Not Given (Other Intervention Used): Cefepime 1 grams IVPB at 200 ml/hr once over 30 bs2 mins; (mix in NS 100 mL) 01:52 Drug: vancoMYCIN 1 grams Route: IVPB; Infused Over: 2 hrs; Site: Port-a-cath; ea 04:00 Follow up: Response: No adverse reaction; IV Status: Completed infusion; IV Intake: ea 250ml 07:58 Drug: Potassium Chloride 20 mEq Route: IV; Rate: per protocol; Site: Port-a-cath; [facility] Intake: 04:00 IV: 250ml; Total: 250ml. ea 05:52 IV: 2000ml; Total: 2250ml. Outcome: 01:58 Decision to Hospitalize by Provider. [facility] 05:50 Admitted to ER Hold. Please see [facility] for further documentation. 05:50 Condition: stable 05:50 Instructed on the need for admit, Demonstrated understanding of instructions. 19:22 Patient left the ED. [email or web address] Signatures: Dispatcher [employer] EDMS Hina Lockhart Brenda RN RN bb Babatunde Diaz, RN RN jl7 Rica Merida, RN TAMELA Thomas Sanchez 2 Yamil Cates MD MD 7 Kelly Kenny, RN RN bs2
--- NOTE | 2020-09-29 01:59 | EDPHYS ---
Physician Documentation [facility] Name: Krista Chakraborty Age: 74 yrs Sex: Female : 1945 Arrival Date: 09/28/2020 Time: 23:16 Bed 18 Private MD: ED Physician Yamil Cates HPI: 09/28 23:30 This 74 yrs old Black Female presents to ER via EMS with complaints of Fever. mh7 23:30 The patient reports fever, that was measured at 104 degrees Fahrenheit. Onset: The mh7 symptoms/episode began/occurred today. 23:30 Modifying factors: Recently hospitalized. Associated signs and symptoms: Pertinent mh7 positives: swelling, Pertinent negatives: abdominal pain, altered mental status, arthralgias, backache, chest pain, chills, cough, diarrhea, earache, headache, hemoptysis, myalgias, nausea, night sweats, runny nose, sinus congestion, sinus drainage, skin rash, shortness of breath, sore throat, vomiting. Severity of symptoms: At their worst the symptoms were moderate today, in the emergency department the symptoms have improved moderately. The patient has been recently been admitted at [facility], was discharged last week, Transfer to another hospital. Admitted here last week for sepsis and transferred to [facility] in the [facility]. She was discharged this evening but was refused at home by family due to fever. EMS then brought patient to ED for evaluation. Patient denies any complaints.. Historical: - Allergies: 09/29 00:39 No Known Allergies; ea - PMHx: 00:39 colon cancer; Hypertension; liver cancer; ea - Immunization history:: Adult Immunizations unknown. - Social history:: Smoking status: unknown. ROS: 09/28 23:30 Eyes: Negative for injury, pain, redness, and discharge, ENT: Negative for injury, mh7 pain, and discharge, Neck: Negative for injury, pain, and swelling, Cardiovascular: Negative for chest pain, palpitations, and edema, Respiratory: Negative for shortness of breath, cough, wheezing, and pleuritic chest pain, Abdomen/GI: Negative for abdominal pain, nausea, vomiting, diarrhea, and constipation, Back: Negative for injury and pain, : Negative for injury, bleeding, discharge, and swelling, MS/Extremity: Negative for injury and deformity, Skin: Negative for injury, rash, and discoloration, Neuro: Negative for headache, weakness, numbness, tingling, and seizure, Psych: Negative for depression, anxiety, suicide ideation, homicidal ideation, and hallucinations, Allergy/Immunology: Negative for hives, rash, and allergies, Endocrine: Negative for neck swelling, polydipsia, polyuria, polyphagia, and marked weight changes, Hematologic/Lymphatic: Negative for swollen nodes, abnormal bleeding, and unusual bruising. Exam: 23:30 Head/Face: Normocephalic, atraumatic. mh7 23:30 Neck: Trachea midline, no thyromegaly or masses palpated, and no cervical lymphadenopathy. Supple, full range of motion without nuchal rigidity, or vertebral point tenderness. No Meningismus. Chest/axilla: Normal chest wall appearance and motion. Nontender with no deformity. No lesions are appreciated. 23:30 Respiratory: Lungs have equal breath sounds bilaterally, clear to auscultation and percussion. No rales, rhonchi or wheezes noted. No increased work of breathing, no retractions or nasal flaring. 23:30 Skin: Warm, dry with normal turgor. Normal color with no rashes, no lesions, and no evidence of cellulitis. MS/ Extremity: Pulses equal, no cyanosis. Neurovascular intact. Full, normal range of motion. 23:30 Constitutional: The patient appears in no acute distress, alert, awake, obviously ill. 23:30 Eyes: Periorbital structures: appear normal, Pupils: equal, round, and reactive to light and accomodation, Extraocular movements: intact throughout, Conjunctiva: normal, Sclera: icterus, is present. 23:30 Cardiovascular: Rate: tachycardic, Rhythm: regular, Pulses: no pulse deficits are appreciated, Heart sounds: normal, normal S1and S2, Edema: pedal edema, that is moderate, JVD: is not appreciated. 23:30 Abdomen/GI: Inspection: obese Upper abdominal drain in place, Bowel sounds: normal, in all quadrants, Palpation: abdomen is soft and non-tender, in all quadrants, Rectal exam: the exam is deferred, because of patient request, Indicators: McBurney's point is not tender, Smith's sign is negative, Rovsing's sign is negative, Obturator sign is negative, Psoas sign is negative, Liver: no appreciated palpable abnormalities, Hernia: not appreciated. 23:30 Neuro: Orientation: no acute changes, per EMS, Mentation: no acute changes, per EMS, Memory: appropriate for stated age, Cranial nerves: grossly normal, Cerebellar function: is grossly normal based on the patient's age, Motor: is normal, Sensation: is normal, Gait: not tested. seizure activity, is not displayed by the patient, Abnormal movements: there are no abnormal movements. Vital Signs: 23:49 BP 85 / 50; Pulse 114; Resp 19; Temp 101.5; Pulse Ox 97% ; Weight 81.65 kg; ea 09/29 05:00 BP 101 / 64; Pulse 93; Resp 18; Temp 98.1; Pulse Ox 98% ; ea 05:52 Temp 98.8; ea MDM: 01:54 Differential diagnosis: viral Infection, bacterial infection, pneumonia [facility] gastroenteritis, Sepsis. Data reviewed: vital signs, nurses notes, EMS record, diagnostic data from outside facility, old medical records, lab test result(s), CBC, electrolytes, EKG, radiologic studies, plain films. Data interpreted: Pulse oximetry: on room air is 97 %. Interpretation: normal. Counseling: I had a detailed discussion with the patient and/or guardian regarding: the historical points, exam findings, and any diagnostic results supporting the discharge/admit diagnosis, lab results, radiology results, the need for further work-up and treatment in the hospital. Response to treatment: the patient's symptoms have mildly improved after treatment. ED course: Discussed with the patient's daughter, Shira, states that patient is DNR with comfort measures only including no intubation, no pressors, no CPR.. 01:58 Patient medically screened. 09/28 23:39 Order name: Amylase, Serum [facility] 09/28 23:39 Order name: Basic Metabolic Panel 09/28 23:39 Order name: Bilirubin, Direct [facility] 09/28 23:39 Order name: Blood Culture Adult (2) 09/28 23:39 Order name: CBC with Diff 09/28 23:39 Order name: CPK [facility] 09/28 23:39 Order name: Ckmb 09/28 23:39 Order name: LFT's 09/28 23:39 Order name: Lactate [facility] 09/28 23:39 Order name: Lipase; Complete Time: 01:30 [facility] 09/28 23:39 Order name: Procalcitonin [facility] 09/28 23:39 Order name: Protime (+inr); Complete Time: 01:05 [facility] 09/28 23:39 Order name: Ptt, Activated; Complete Time: 01:05 [facility] 09/28 23:39 Order name: Troponin (emerg Dept Use Only); Complete Time: 01:30 [facility] 09/28 23:39 Order name: Urine Culture [facility] 09/28 23:39 Order name: Urine Microscopic Only [facility] 09/28 23:39 Order name: Amylase; Complete Time: 01:30 [facility] 09/28 23:39 Order name: Basic Metabolic Panel; Complete Time: 01:30 [facility] 09/28 23:39 Order name: Blood Culture [facility] 09/28 23:39 Order name: CBC with Automated Diff; Complete Time: 01:28 [facility] 09/28 23:39 Order name: Creatine Phosphokinase; Complete Time: 01:30 [facility] 09/28 23:39 Order name: CKMB Creatine Kinase MB; Complete Time: 01:30 [facility] 09/28 23:39 Order name: Liver (Hepatic) Function; Complete Time: 01:30 [facility] 09/28 23:39 Order name: Lactate; Complete Time: 01:24 [facility] 09/29 00:56 Order name: Manual Differential; Complete Time: 01:28 [facility] 09/29 01:12 Order name: PRBC [facility] 09/29 01:13 Order name: ABO/RH typing [facility] 09/28 23:39 Order name: Chest Single View XRAY [facility] 09/28 23:39 Order name: Accucheck; Complete Time: 07:23 [facility] 09/28 23:39 Order name: Cardiac monitoring; Complete Time: 01:15 [facility] 09/28 23:39 Order name: Cath; Complete Time: 00:30 [facility] 09/28 23:39 Order name: EKG - Nurse/Tech; Complete Time: 00:31 [facility] 09/28 23:39 Order name: IV Saline Lock - Large Bore; Complete Time: 00:31 [facility] 09/28 23:39 Order name: Labs collected and sent; Complete Time: 00:31 [facility] 09/28 23:39 Order name: O2 Per Protocol; Complete Time: 00:31 [facility] 09/28 23:39 Order name: O2 Sat Monitoring; Complete Time: 00:31 [facility] 09/29 01:12 Order name: Transfuse; Complete Time: 05:32 [facility] 09/29 01:13 Order name: Antibody Screen [facility] 09/29 02:07 Order name: SARS-COV-2 RT PCR [facility] 09/29 03:39 Order name: Urine Dipstick-Ancillary [facility] 09/29 04:17 Order name: Lactate Sepsis 2 HR Follow-up [facility] 09/29 08:25 Order name: Lactate [facility] 09/29 08:28 Order name: Comprehensive Metabolic Panel [facility] 09/29 10:53 Order name: Hemoglobin [facility] 09/29 10:53 Order name: Hematocrit [facility] Administered Medications: 00:35 Drug: NS 0.9% (30 ml/kg) 30 ml/kg Route: IV; Rate: bolus; Site: right antecubital; bs2 05:52 Follow up: Response: No adverse reaction; IV Status: Completed infusion; IV Intake: ea 2000ml 00:35 Drug: Rocephin (cefTRIAXone) 1 grams Route: IV; Rate: 1 calculated rate; Site: right bs2 antecubital; 01:00 Follow up: Response: No adverse reaction; IV Status: Completed infusion ea 00:50 Drug: Tylenol Suppository 650 mg Route: NV; bs2 05:52 Follow up: Temp 98.8; Response: No adverse reaction ea 01:12 Not Given (Other Intervention Used): Tylenol 650 mg PO once bs2 01:12 Not Given (Other Intervention Used): Cefepime 1 grams IVPB at 200 ml/hr once over 30 bs2 mins; (mix in NS 100 mL) 01:52 Drug: vancoMYCIN 1 grams Route: IVPB; Infused Over: 2 hrs; Site: Port-a-cath; ea 04:00 Follow up: Response: No adverse reaction; IV Status: Completed infusion; IV Intake: ea 250ml 07:58 Drug: Potassium Chloride 20 mEq Route: IV; Rate: per protocol; Site: Port-a-cath; [email or web address] Disposition Summary: 09/29/20 01:58 Hospitalization Ordered Hospitalization Status: Inpatient Admission 7 Provider: Bryce Romero Condition: Critical [facility] Problem: an ongoing problem [facility] Symptoms: have improved [facility] Bed/Room Type: Standard [facility] Location: [facility] ER HOLD(09/29/20 02:20) cg Room Assignment: ERHOLD-(09/29/20 02:20) cg Diagnosis - Severe sepsis with septic shock [facility] Forms: - Medication Reconciliation Form 7 - SBAR form [facility] Signatures: Dispatcher [employer] EDBianca Velazquez, RN RN Babatunde López RN RN 7 Rica Merida RN Yamil Malik ea, MD MD 7 Kelly Kenny RN RN bs2 Corrections: (The following items were deleted from the chart) 09/28 23:40 23:39 Bilirubin Direct ordered. EDMS EDMS 09/29 00:43 00:10 CORONAVIRUS+MR.LAB.BRZ ordered. EDMS EDMS 01:45 01:05 TYPE AND SCREEN+BB.LAB.BRZ ordered. EDMS EDMS 01:57 01:12 Abdomen Pelvis W Con+CT.RAD.BRZ ordered. EDOH EDMS 02:20 01:58 Telemetry/Med[place]urg ([place] [facility] 02:20 01:58 [facility]
[2020-09-29 03:39] LABS: Urine Blood Trace-lysed (Negative); Urine Glucose Negative (Negative); Urine Protein 2+ (Negative); Urine Specific Gravity 1.015 (1.005-1.030); Urine pH 5.5 (5.0-7.0)
--- NOTE | 2020-09-29 03:41 | P.HP ---
Certification for Inpatient Patient admitted to: Observation With expected LOS: <2 Midnights Patient will require the following post-hospital care: Hospice Practitioner: I am a practitioner with admitting privileges, knowledge of patient current condition, hospital course, and medical plan of care. Services: Services provided to patient in accordance with Admission requirements found in Title 42 Section 412.3 of the Code of Federal Regulations <Hussein Long - Last Filed: 09/29/20 04:11> Patient History Date of Service: 09/29/20 Reason for admission: anemia, fever History of Present Illness: Ms. Chakraborty is a 74 yo F with stage IV colon cancer (not a candidate for any further treatment, oncologist is Dr. Gregory at [facility]) metastatic to liver c/b biliary obstruction with biliary stent and drain in place, DVT off NOAC due to GIB but with IVC, afib, prior stress cardiomyopahty and type A aortic disseciton s/p ascending aortic graft July 2020 who was brought in by EMS for reported fever of 104F. Daughter said she was barely conscious and she did not feel comfortable caring for her mom at that time. Spoke with daughter and she would like to continue the DNR status. Would like her mom to be made comfortable but does not want invasive interventions. Is amenable to blood transfusions and IV antibiotics. Still is open to discharging mom on hospice if mom is made comfortable. Her mom was discharged late in the evening and the hospice nurse was not able to arrive until tomorrow. At next discharge, need to make sure it is early so hospice nurse can meet patient there. Ms. Chakraborty was discharged today from [facility] on hospice and with levaquin 750 q48h for 7 days, augmentin 500mg BID thereafter, and metoprolol 25 mg BID. She was originally admitted for klebsiella bacteremia causing sepsis, which was resolved by transfer, and repeat blood cultures showed no growth. ID did not think stent was source of infection and [facility] and ID both recommend that biliary drain remain in place. She continued to have hematochezia to which GI recommended monitoring. Decision was made to no longer continue Lasix due to hospice decision. No further plan of care from a GI or ID standpoint. WBC 43.3. H/H 7.1. K 3.1. Glu 68. Tbili 7.2. D bili 6.4. - Past Medical/Surgical History -: Stage IV colon cancer with mets to liver -: Hypertension -: DVT -: afib -: type A aortic dissection -: Biliary stenting -: Port-A-Cath placement -: ascending aoritc graft -: IVC filter Psychosocial/ Personal History: Patient currently lives at home with daughter - Social History Smoking Status: Unknown if ever smoked Alcohol use: No CD- Drugs: No Caffeine use: Yes Place of Residence: Home <Hussein Long - Last Filed: 09/29/20 04:11> Date of Service: 09/29/20 <Bryce Romero - Last Filed: 09/29/20 16:33> Allergies No Known Allergies Allergy (Unverified 09/22/20 23:42) Review of Systems 10-point ROS is otherwise unremarkable General: Fever <Hussein Long - Last Filed: 09/29/20 04:11> Physical Examination - Physical Exam General: Alert, In no apparent distress HEENT: Atraumatic, PERRLA, Mucous membr. moist/pink, EOMI, Sclerae nonicteric Neck: Supple, 2+ carotid pulse no bruit, No LAD, Without JVD or thyroid abnormality Respiratory: Normal air movement, Crackles/rales Cardiovascular: Regular rate/rhythm, Normal S1 S2 Gastrointestinal: Normal bowel sounds, No tenderness, Other (biliary drain intact) Musculoskeletal: No tenderness Integumentary: No rashes Neurological: Normal speech, Normal strength at 5/5 x4 extr, Normal tone, Normal affect Lymphatics: No axilla or inguinal lymphadenopathy - Studies Laboratory Data (last 24 hrs) 09/29/20 00:25: PT 19.9 H, INR 1.72, APTT 37.6 H 09/29/20 00:25: WBC 43.30 H* D, Hgb 7.1 L, Hct 22.2 L D, Plt Count 338 09/29/20 00:25: Sodium 141, Potassium 3.1 L, BUN 12, Creatinine 0.57, Glucose 68 L, Total Bilirubin 7.2 H*, AST 42 H, ALT 23, Alkaline Phosphatase 330 H, Amylase 58, Lipase 54 L <Hussein Long - Last Filed: 09/29/20 04:11> - Studies Laboratory Data (last 24 hrs) 09/29/20 00:25: PT 19.9 H, INR 1.72, APTT 37.6 H 09/29/20 00:25: WBC 43.30 H* D, Hgb 7.1 L, Hct 22.2 L D, Plt Count 338 09/29/20 00:25: Sodium 141, Potassium 3.1 L, BUN 12, Creatinine 0.57, Glucose 68 L, Total Bilirubin 7.2 H*, AST 42 H, ALT 23, Alkaline Phosphatase 330 H, Amylase 58, Lipase 54 L <Bryce Romero - Last Filed: 09/29/20 16:33> Assessment and Plan - Problems (Diagnosis) (1) Colon cancer Current Visit: Yes Status: Chronic Qualifiers: Colon location: unspecified part of colon Qualified Code(s): C18.9 - Malignant neoplasm of colon, unspecified (2) Bacteremia Current Visit: Yes Status: Acute (3) Biliary obstruction Current Visit: Yes Status: Chronic (4) Afib Current Visit: Yes Status: Chronic Qualifiers: Atrial fibrillation type: unspecified Qualified Code(s): I48.91 - Unspecified atrial fibrillation (5) Anemia Current Visit: Yes Status: Chronic Qualifiers: Anemia type: iron deficiency Iron deficiency anemia type: chronic blood loss Qualified Code(s): D50.0 - Iron deficiency anemia secondary to blood loss (chronic) - Plan continue IV levaquin, discharge on PO levaquin and augmentin as originally planned repeat blood cultures pending received 1 unit pRBCs in the ED, recheck hemoglobin and hematocrit 2 hours post, will tranfuse to goal of [address] PRN for T>100 250cc fluid bolus PRN for hypotension potassium replacment protocol monitor blood glucose levels metoprolol 25mg BID if BP can sustain coordinate for early discharge so hospice nurse can be available to set up care at home DVT ppx Discharge Plan: Home Plan to discharge in: 24 Hours - Advance Directives Does patient have a Living Will: No Does patient have a Durable POA for Healthcare: Yes - Code Status/Comfort Care Code Status Assessed: Yes (DNR) Comfort Measures: Hospice Care Critical Care: No Time Spent Managing Pts Care (In Minutes): 70 <Hussein Long - Last Filed: 09/29/20 04:11> Date of Service: 09/29/20 Agree with findings as mentioned above. Patient is clinically doing well in has hospice arranged. Will discuss with case management prior to discharge. Physical Examination: Vitals: Afebrile vital signs are stable Physical exam: General: Cachectic but oriented to person place and time Cardiovascular: Within normal limits. Lungs: Within normal limits Abdomen: Within normal limits Neuro: Generalized weakness Assessment: 1. Metastatic colon cancer Plan: 1. Continue with current plan of care <Bryce Romero - Last Filed: 09/29/20 16:33>
[2020-09-29 05:24] LABS: Urine Bacteria 20-50 /HPF (<20); Urine Urothelial Cells >20 /HPF (NONE SEEN); Urine Yeast FEW (NONE SEEN)
[2020-09-29 05:25] LABS: Urine RBC <5 /HPF (NONE SEEN); Urine Yeast with Hyphae PRESENT
[2020-09-29] MEDS ORDERED: KCL 20 MEQ/100 mL IVPB 20 MEQ/100 ML BAG IV ONE (05:58)
[2020-09-29 06:15] VITALS: BMI 29.0
[2020-09-29] MEDS ORDERED: ONDANSETRON 4 MG/2 ML VIAL IV PRN (06:59)
[2020-09-29] MEDS ORDERED: ACETAMINOPHEN 650MG/RECT SUPP PR PRN (06:59)
[2020-09-29] MEDS ORDERED: NA CHLORIDE 0.9% 250 ML IV PRN (06:59)
[2020-09-29 08:25] LABS: ALT/SGPT 22 U/L (12-78); AST/SGOT 47 U/L (15-37); Albumin 1.1 g/dL (3.4-5.0); Alkaline Phosphatase 294 U/L (45-117); BUN Blood Urea Nitrogen 14 mg/dL (7-18); Bicarbonate 26 mmol/L (21-32); Glucose Level 79 mg/dL (74-106); Potassium 3.4 mmol/L (3.5-5.1); Protein, Total 4.8 g/dL (6.4-8.2); Sodium Level 142 mmol/L (136-145)
[2020-09-29 08:27] LABS: Bilirubin Total 6.6 mg/dL (0.2-1.0)
[2020-09-29] MEDS ORDERED: Levofloxacin 750mg IV 750 MG/150 ML BAG IV ONE (08:34)
--- NOTE | 2020-09-29 08:48 | RAD REPORT ---
EXAM DESCRIPTION: RAD - Chest Single View - 09/28/2020 11:56 pm CLINICAL HISTORY: COUGH COMPARISON: September 22 CT abdomen, September 22 portable chest TECHNIQUE: AP portable chest image was obtained 09/28/2020 11:56 pm . FINDINGS: Right-sided Port-A-Cath remains in place. Sternotomy wires are in place. Heart size is nor mal and stable. Vasculature within normal limits. No pneumothorax is present. Pleural effusions are p resent slightly larger on the left. Right-side pleural effusion appears to have diminished during the interval. No acute bony abnormality seen. No acute aortic findings suspected. IMPRESSION: No new or progressive lung parenchymal process. Bilateral pleural effusions remain, slightly improved on the right.
[2020-09-29] MEDS ORDERED: Levofloxacin 750mg IV 750 MG/150 ML BAG IV SCH (09:00)
[2020-09-29] MEDS ORDERED: PNEUMOCOCCAL VACCINE 0.5 ML IMVAC ONE (09:00)
[2020-09-29 10:40] LABS: Hematocrit 28.2 % (36.0-45.0)
[2020-09-29 11:09] VITALS: O2SAT 98
--- NOTE | 2020-09-29 15:38 | EKG ---
Test Date: 2020-09-28 Test Time: 23:58:29 Oxidation Operator: IVANNA MEASUREMENT RESULTS: Intervals: Rate: 112 AK: 154 QRSD: 120 QT: 352 QTc: 480 [place]: P: 95 AK: 154 QRS: 58 T: 35 INTERPRETIVE STATEMENTS: Sinus tachycardia with occasional premature ventricular complexes Right bundle branch block Abnormal ECG Compared to ECG 09/22/2020 12:37:21 Ventricular premature complex(es) now present Atrial premature complex(es) no longer present Accelerated junctional rhythm no longer present Myocardial infarct finding no longer present T-wave abnormality no longer present Possible ischemia no longer present Electronically Signed On 09-29-20 15:36:54 CDT by Gianni Caceres
--- NOTE | 2020-09-29 16:23 | P.DS ---
Discharge Date: 09/29/20 Disposition: HOSPICE-HOME Discharge Condition: FAIR Reason for Admission: anemia, fever Brief History of Present Illness: Ms. Chakraborty is a 74 yo F with stage IV colon cancer (not a candidate for any further treatment, oncologist is Dr. Gregory at [facility]) metastatic to liver c/b biliary obstruction with biliary stent and drain in place, DVT off NOAC due to GIB but with IVC, afib, prior stress cardiomyopahty and type A aortic disseciton s/p ascending aortic graft July 2020 who was brought in by EMS for reported fever of 104F. Daughter said she was barely conscious and she did not feel comfortable caring for her mom at that time. Spoke with daughter and she would like to continue the DNR status. Would like her mom to be made comfortable but does not want invasive interventions. Is amenable to blood transfusions and IV antibiotics. Still is open to discharging mom on hospice if mom is made comfortable. Her mom was discharged late in the evening and the hospice nurse was not able to arrive until tomorrow. At next discharge, need to make sure it is early so hospice nurse can meet patient there. Ms. Chakraborty was discharged today from [facility] on hospice and with levaquin 750 q48h for 7 days, augmentin 500mg BID thereafter, and metoprolol 25 mg BID. She was originally admitted for klebsiella bacteremia causing sepsis, which was resolved by transfer, and repeat blood cultures showed no growth. ID did not think stent was source of infection and [facility] and ID both recommend that biliary drain remain in place. She continued to have hematochezia to which GI recommended monitoring. Decision was made to no longer continue Lasix due to hospice decision. No further plan of care from a GI or ID standpoint. Hospital Course: Ms Chakraborty has advanced colon cancer. Her prognosis is poor. She has not been doing well in this severely anemic. Patient does not want any further care at this time. She is agreeable to hospice. We went ahead and set up for home hospice. Patient is stable for discharge under hospice care. Vital Signs/Physical Exam: Temp Pulse Resp BP Pulse Ox 98.1 F 69 15 100/66 09/29/20 12:00 09/29/20 12:00 09/29/20 12:00 09/29/20 12:00 General: Alert, In no apparent distress, Oriented x3 Laboratory Data at Discharge: WBC 43.30 K/uL (4.3-10.9) H* D 09/29/20 00:25 Hgb 9.2 g/dL (12.0-15.0) L 09/29/20 09:56 Hct 28.2 % (36.0-45.0) L D 09/29/20 09:56 Plt Count 338 K/uL (152-406) 09/29/20 00:25 PT 19.9 SECONDS (9.5-12.5) H 09/29/20 00:25 INR 1.72 09/29/20 00:25 APTT 37.6 SECONDS (24.3-36.9) H 09/29/20 00:25 Sodium 142 mmol/L (136-145) 09/29/20 07:33 Potassium 3.4 mmol/L (3.5-5.1) L 09/29/20 07:33 BUN 14 mg/dL (7-18) 09/29/20 07:33 Creatinine 0.50 mg/dL (0.55-1.3) L 09/29/20 07:33 Glucose 79 mg/dL (74-106) 09/29/20 07:33 Total Bilirubin 6.6 mg/dL (0.2-1.0) H* 09/29/20 07:33 AST 47 U/L (15-37) H 09/29/20 07:33 ALT 22 U/L (12-78) 09/29/20 07:33 Alkaline Phosphatase 294 U/L (45-117) H 09/29/20 07:33 Amylase 58 U/L (25-115) 09/29/20 00:25 Lipase 54 U/L (73-393) L 09/29/20 00:25 Physician Discharge Instructions: Okay to Dc with hospice care Diet: AHA Activity: Fall precautions Followup: NONE,NONE [Primary Care Provider] - Time spent managing pt's care (in minutes): 35
[2020-09-29 16:57] VITALS: BP 115/70; TEMP 97.8
[2020-09-29] MEDS ORDERED: HEPARIN 500 UNIT/5 ML SYR IV ONE (19:14)
== END 2020-09-29 19:02 | disposition hospice, home (50) ==
LOC: ER 22:52 → ERHOLD 09-29 03:35 → INTOOBSV 09-29 03:35
PROVIDERS: ADMIT Hospitalist; ATTEND Hospitalist
PROC: 30233N1 Transfusion of Nonautologous Red Blood Cells into Peripheral Vein, Percutaneous Approach (ICD-10-PCS; principal; 2020-09-29)
DX: D50.0 Iron deficiency anemia secondary to blood loss (chronic) (principal); C18.9 Malignant neoplasm of colon, unspecified; C78.7 Secondary malignant neoplasm of liver and intrahepatic bile duct; K83.1 Obstruction of bile duct; I48.91 Unspecified atrial fibrillation; I10 Essential (primary) hypertension; I82.409 Acute embolism and thrombosis of unspecified deep veins of unspecified lower extremity; Z66 Do not resuscitate; Z20.822 Contact with and (suspected) exposure to COVID-19
CPT/HCPCS: 93005; 87040 ×2; 87088; 85025; 87086; 80048; 36415; 82150; 86900; 86850; 82550; 85610; 86901; 80076; 83605 ×3; 85730; 85018; 85014; 84484; 82553; 83690; 80053; 84145; 71045; 94760; 99285; 36430; U0003; J3480; J3370; J1642; J0696; G0378; P9016; J7050; 81003; 81015